=== PATIENT | female | born 1945 | race Caucasian/White ===

== ENCOUNTER → 2017-01-09 | Outpatient (REF) | payer MEDICARE ==
[~2017-01-09] MED LIST: /ESOM40CA OR; /WARF25TA OR; /WARF5TA OR; ALDA25TA2 OR; AMLO5TAB2 PO; ANAS1TAB PO; BISAC5TA PO; CALCTAB22 OR; CAPTPOW OR; CORE3.12 OR; COUM10TA OR; COZA25TA8 OR; DOCU10ELUD PO; FERR325T OR; FURO20TA OR; FURO80TA2 OR; GLIP10TA18 OR; INSUH10VL INJ; IRON CR PO; JANUMET OR; LEVEINJ SC; LISI5TAB PO; LOPE2TAB3 PO; LOPERAMIDE PO; OMEP40CA2 PO; OYST500T OR; POTA20TA2 OR; SIMV40TA2 OR; SLOWTAB OR; TORS20TA2 PO; TUMS500C OR; TUMS500C PO; VICO5TAB OR; VITA500T3 PO; VITAMIN B-12 SC; VITAMIN D PO; ZETI10TA OR; ZETI10TA21 PO; [UNRECOGNIZED DRUG - CODE] OR; [UNRECOGNIZED DRUG - OTHER] OR; anastrozole OR
[2017-01-09 15:37] LABS: ALBUMIN 3.8 GM/DL (3.2-5.2); ALBUMIN/GLOBULIN RATIO 1.27 (1.00-1.93); BILIRUBIN,TOTAL 0.3 MG/DL (0.2-1.0); CALCIUM LEVEL 8.6 MG/DL (8.8-10.2); CREATININE FOR GFR 2.33 MG/DL (0.55-1.02); GLOMERULAR FILTRATION RATE 21.9 (>39); POTASSIUM SERUM 4.9 MEQ/L (3.5-5.1); TOTAL PROTEIN 6.8 GM/DL (6.4-8.2)
== END ==
LOC: M SFHCLACO 08:14
PROVIDERS: ATTEND Physician Assistant
DX: I10 Essential (primary) hypertension (principal); E11.39 Type 2 diabetes mellitus with other diabetic ophthalmic complication; E78.2 Mixed hyperlipidemia; E55.9 Vitamin D deficiency, unspecified; D51.0 Vitamin B12 deficiency anemia due to intrinsic factor deficiency

== ENCOUNTER → 2017-02-26 | Outpatient (REF) | payer MEDICARE ==
[2017-02-26 19:20] LABS: PERCENT SATURATION 13.7 % (13.2-37.4)
== END ==
LOC: M LAB REF 16:53
PROVIDERS: ATTEND Internal Medicine Nephrology
DX: N18.9 Chronic kidney disease, unspecified (principal); D63.1 Anemia in chronic kidney disease

== ENCOUNTER → 2017-07-12 | Outpatient (REF) | payer MEDICARE ==
[2017-07-12 18:51] LABS: PERCENT SATURATION 22.9 % (13.2-45.0)
== END ==
LOC: M LAB REF 17:30
PROVIDERS: ATTEND Internal Medicine Nephrology
DX: D50.9 Iron deficiency anemia, unspecified (principal)

== ENCOUNTER → 2017-07-17 | Outpatient (REF) | payer MEDICARE ==
[2017-07-17 15:52] LABS: ALBUMIN 3.5 GM/DL (3.2-5.2); BILIRUBIN,TOTAL 0.3 MG/DL (0.2-1.0); CALCIUM LEVEL 8.6 MG/DL (8.8-10.2); CREATININE FOR GFR 2.28 MG/DL (0.55-1.02); GLOMERULAR FILTRATION RATE 22.5 (>39); POTASSIUM SERUM 5.1 MEQ/L (3.5-5.1)
== END ==
LOC: M SFHCLACO 08:04
PROVIDERS: ATTEND Physician Assistant
DX: I10 Essential (primary) hypertension (principal); E78.2 Mixed hyperlipidemia; E11.39 Type 2 diabetes mellitus with other diabetic ophthalmic complication; E55.9 Vitamin D deficiency, unspecified; E53.8 Deficiency of other specified B group vitamins

== ENCOUNTER → 2017-09-05 | Outpatient (CLI) | payer MEDICARE ==
--- NOTE | 2017-09-05 10:29 | REP ---
UNILATERAL MAMMOGRAM RIGHT BREAST: HISTORY: Left breast cancer and mastectomy. MLO, CC and axillary CC views of the right breast are performed and compare with prior study of 09/04/2016 as well as other prior exams. There is moderate fibroglandular tissue throughout the right breast with no change since prior studies. There is no new mass or architectural distortion. Scattered tiny benign appearing calcifications are present. There are metallic clips again seen in the right breast. IMPRESSION: ACR 2 benign mammogram right breast with no change since prior studies. Patient is status post left mastectomy. Suggest followup mammogram in 1 year. BI-RADS/ACR category 2 mammogram. Benign finding(s). Routine annual screening mammography (for women over age 40). This mammogram was interpreted with the aid of an FDA-approved computer-aided detection system. A. Negative x-ray reports should not delay biopsy if a dominant or clinically suspicious mass is present. B. Four to eight percent of cancers are not identified by x-ray. C. Adenosis and dense breasts may obscure an underlying neoplasm. The patient states she has not had a clinical breast exam in over a year. The patient letter being requested is M1. Signed by Dakota Lorenz MD 09/05/2017 01:00 P
== END ==
LOC: M RAD 08:48
PROVIDERS: ATTEND Surgery
DX: Z12.31 Encounter for screening mammogram for malignant neoplasm of breast (principal); Z85.3 Personal history of malignant neoplasm of breast

== ENCOUNTER 2017-12-04 13:00 | Inpatient (IN) | payer MEDICARE ==
[2017-12-04] MEDS: NS 500 ML IV ×2 (14:15→15:45)
[2017-12-04] MEDS: ONDANSETRON 4MG/2ML VIAL (J2405) IV (14:15)
[2017-12-04 14:34] LABS: VENOUS BASE EXCESS -5.4 (-2.0-2.0); VENOUS HCO3 20.9 MEQ/L (23.0-27.0); VENOUS O2 SATURATION 97.2 % (60.0-80.0); VENOUS PARTIAL PRESSURE CO2 44.3 mmHg (38.0-50.0); VENOUS PARTIAL PRESSURE O2 102.1 mmHg (30.0-50.0); VENOUS PH 7.291 UNITS (7.330-7.430); VENOUS TOTAL CO2 22.2 MEQ/L (24.0-28.0)
[2017-12-04 14:42] LABS: PROTHROMBIN TIME 24.3 SECONDS (12.4-14.5)
[2017-12-04 15:14] LABS: ANION GAP 8 MEQ/L (8-16); BLOOD UREA NITROGEN 107 MG/DL (7-18); CALCIUM LEVEL 8.6 MG/DL (8.8-10.2); CARBON DIOXIDE LEVEL 25 MEQ/L (21-32); CHLORIDE LEVEL 105 MEQ/L (98-107); CREATININE FOR GFR 2.76 MG/DL (0.55-1.02); GLUCOSE, FASTING 191 MG/DL (83-110); POTASSIUM SERUM 4.3 MEQ/L (3.5-5.1); SODIUM LEVEL 138 MEQ/L (136-145)
[2017-12-04 15:15] LABS: BASO # 0.1 10^3/uL (0.0-0.2); BASO % 0.4 % (0.0-1.0); EOS # 0.1 10^3/uL (0.0-0.50); EOS % 0.8 % (0.0-3.0); HEMATOCRIT 29.7 % (36.0-47.0); HEMOGLOBIN 9.4 g/dl (12.0-16.0); IMMATURE GRANULOCYTE # 0.1 10^3/uL (0-0); IMMATURE GRANULOCYTE % 0.4 % (0-0); LYMPH # 0.6 10^3/uL (1.5-4.5); LYMPH % 4.3 % (24.0-44.0); MEAN CORPUSCULAR HEMOGLOBIN 29.8 pg (27.0-33.0); MEAN CORPUSCULAR HGB CONC 31.6 g/dl (32.0-36.5); MEAN CORPUSCULAR VOLUME 94.3 fl (80.0-96.0); MONO % 7.2 % (0.0-5.0); NEUTROPHILS # 11.9 10^3/uL (1.8-7.7); NEUTROPHILS % 86.9 % (36.0-66.0); PLATELET COUNT, AUTOMATED 205 10^3/uL (150-450); RED BLOOD COUNT 3.15 10^6/uL (4.00-5.40); RED CELL DISTRIBUTION WIDTH 14.4 % (11.5-14.5); WHITE BLOOD COUNT 13.7 10^3/uL (4.0-10.0)
[2017-12-04 16:48] LABS: C REACTIVE PROTEIN QUANTITATIV < 0.30 MG/DL (0.00-0.30)
[2017-12-04] MEDS ORDERED: GLUCAGON FOR INJ 1 MG VIAL (J1610) SC (17:00)
[2017-12-04] MEDS ORDERED: DEXTROSE 50% 50 ML SYRINGE IV (17:00)
[2017-12-04] MEDS ORDERED: ACETAMINOPHEN TAB 650MG DOSE (2X325MG) PO (17:00)
[2017-12-04] MEDS ORDERED: ONDANSETRON 4MG/2ML VIAL (J2405) IV (17:15)
[2017-12-04] MEDS: HumaLOG INSULIN (NovoLOG) PER UNIT SC ×2 (17:30→21:00)
[2017-12-04 20:39] LABS: BEDSIDE GLUCOSE 175 MG/DL (83-110)
[2017-12-04] MEDS: NS 1,000 ML IV (21:57)
[2017-12-04] MEDS: CARVedilol 3.125 MG TAB PO (21:57)
[2017-12-04] MEDS: WARFARIN SOD 3 MG TAB PO (21:57)
[2017-12-05] MEDS: NS 1,000 ML IV ×2 (05:29→09:36)
[2017-12-05 06:22] LABS: HEMATOCRIT 22.9 % (36.0-47.0); MEAN CORPUSCULAR HEMOGLOBIN 29.5 pg (27.0-33.0); MEAN CORPUSCULAR HGB CONC 31.4 g/dl (32.0-36.5); MEAN CORPUSCULAR VOLUME 93.9 fl (80.0-96.0); PLATELET COUNT, AUTOMATED 150 10^3/uL (150-450); RED BLOOD COUNT 2.44 10^6/uL (4.00-5.40); RED CELL DISTRIBUTION WIDTH 14.3 % (11.5-14.5); WHITE BLOOD COUNT 6.8 10^3/uL (4.0-10.0)
[2017-12-05 06:30] LABS: HEMOGLOBIN 7.2 g/dl (12.0-16.0)
[2017-12-05 06:33] LABS: PROTHROMBIN TIME 32.5 SECONDS (12.4-14.5)
[2017-12-05 06:40] LABS: ALBUMIN 2.8 GM/DL (3.2-5.2); ANION GAP 8 MEQ/L (8-16); BLOOD UREA NITROGEN 95 MG/DL (7-18); CALCIUM LEVEL 7.1 MG/DL (8.8-10.2); CARBON DIOXIDE LEVEL 23 MEQ/L (21-32); CHLORIDE LEVEL 111 MEQ/L (98-107); CREATININE FOR GFR 2.41 MG/DL (0.55-1.02); GLUCOSE, FASTING 76 MG/DL (83-110); MAGNESIUM LEVEL 1.6 MG/DL (1.8-2.4); PHOSPHORUS LEVEL 5.2 MG/DL (2.5-4.9); SODIUM LEVEL 142 MEQ/L (136-145)
[2017-12-05] MEDS: HumaLOG INSULIN (NovoLOG) PER UNIT SC ×4 (07:24→21:00)
[2017-12-05] MEDS: MAG SULF 1GM/100ML (MAG RUN) 1 GM in APPROPRIATE DILUENT 1 EA IV (07:58)
[2017-12-05] MEDS: FERROUS SULFATE 325MG TAB PO (09:34)
[2017-12-05] MEDS: CYANOCOBALAMIN 500 MCG TAB PO (09:34)
[2017-12-05] MEDS: SIMVASTATIN 40 MG TAB PO (09:34)
[2017-12-05] MEDS: CALCITRIOL 0.25 MCG CAP (S0169) PO (09:34)
[2017-12-05] MEDS: amLODIPine 5 MG TAB PO (09:35)
[2017-12-05] MEDS: LEVEMIR (INSULIN DETEMIR) 1 UNITS/0.01ML SC (09:36)
[2017-12-05] MEDS: CARVedilol 3.125 MG TAB PO ×2 (09:36→21:00)
[2017-12-05 10:54] LABS: IMMEDIATE SPIN CROSSMATCH 1 2
[2017-12-05] MEDS ORDERED: VANCOMYCIN HCL 1,500 MG, VIAL MATE ADAPTER 1 EACH in D5W 250 ML IV (11:30)
[2017-12-05] MEDS: VANCOMYCIN HCL 1,000 MG, VIAL MATE ADAPTER 1 EACH in D5W 250 ML IV (11:48)
[2017-12-05] MEDS: VANCOMYCIN HCL 500 MG in D5W MINI-BAG PLUS 100 ML IV (13:00)
[2017-12-05] MEDS ORDERED: VANCOMYCIN INTERMITTENT/PULSE DOSING BY CLINICAL PHARMACIST PER DOSING PROTOCOL XX (15:30)
[2017-12-05] MEDS: GLUCOSE 4 GM CHEW TABLET PO (16:27)
[2017-12-05] MEDS: WARFARIN SOD 3 MG TAB PO (16:50)
[2017-12-05] MEDS: FUROSEMIDE 40 MG/4 ML VIAL (J1940) IV (16:50)
[2017-12-05 17:05] LABS: BEDSIDE GLUCOSE 40 MG/DL (83-110)
[2017-12-05 17:06] LABS: BEDSIDE GLUCOSE 80 MG/DL (83-110)
[2017-12-05 18:04] LABS: HEMATOCRIT 32.3 % (36.0-47.0); MEAN CORPUSCULAR HEMOGLOBIN 29.6 pg (27.0-33.0); MEAN CORPUSCULAR HGB CONC 31.9 g/dl (32.0-36.5); MEAN CORPUSCULAR VOLUME 92.8 fl (80.0-96.0); PLATELET COUNT, AUTOMATED 148 10^3/uL (150-450); RED BLOOD COUNT 3.48 10^6/uL (4.00-5.40); RED CELL DISTRIBUTION WIDTH 14.8 % (11.5-14.5); WHITE BLOOD COUNT 8.7 10^3/uL (4.0-10.0)
[2017-12-05 18:08] LABS: HEMOGLOBIN 10.3 g/dl (12.0-16.0)
[2017-12-05 21:10] LABS: BEDSIDE GLUCOSE 159 MG/DL (83-110)
[2017-12-05 21:46] LABS: APPEARANCE, URINE CLEAR (CLEAR); BACTERIA, URINE AUTO NEGATIVE (NEGATIVE); BILIRUBIN, URINE AUTO NEGATIVE (NEGATIVE); BLOOD, URINE BLOOD NEGATIVE (NEGATIVE); COLOR, URINE STRAW (YELLOW); GLUCOSE, URINE (UA) AUTO NEGATIVE (NEGATIVE); KETONE, URINE AUTO NEGATIVE (NEGATIVE); LEUKOCYTE ESTERASE, URINE AUTO 2+ (NEGATIVE); NITRITE, URINE AUTO NEGATIVE (NEGATIVE); PROTEIN, URINE AUTO NEGATIVE (NEGATIVE); RBC, URINE AUTO 1 /HPF (0-3); SPECIFIC GRAVITY URINE AUTO 1.004 (1.002-1.035); SQUAMOUS EPITHELIAL CELL UR AU 0 /HPF (0-6); UROBILINOGEN, URINE AUTO 0.2 mg/dL (0.0-2.0); WBC, URINE AUTO 2 /HPF (0-3)
[2017-12-05 21:48] LABS: OSMOLALITY URINE 209 MOSM/KG (500-800)
[2017-12-05 21:56] LABS: CHLORIDE,RANDOM URINE 13 MEQ/L; CREATININE,RANDOM URINE 30.3 MG/DL; POTASSIUM RANDOM URINE 7.3 MEQ/L; SODIUM,RANDOM URINE 24 MEQ/L; TOTAL PROTEIN,RANDOM URINE 5.2 MG/DL (0.0-12.0)
[2017-12-06 06:43] LABS: HEMOGLOBIN 9.3 g/dl (12.0-16.0); MEAN CORPUSCULAR HEMOGLOBIN 29.5 pg (27.0-33.0); MEAN CORPUSCULAR HGB CONC 32.1 g/dl (32.0-36.5); MEAN CORPUSCULAR VOLUME 92.1 fl (80.0-96.0); PLATELET COUNT, AUTOMATED 140 10^3/uL (150-450); RED BLOOD COUNT 3.15 10^6/uL (4.00-5.40); WHITE BLOOD COUNT 7.2 10^3/uL (4.0-10.0)
[2017-12-06 07:02] LABS: INR 3.16; PROTHROMBIN TIME 33.9 SECONDS (12.4-14.5)
[2017-12-06 07:12] LABS: ALBUMIN 2.8 GM/DL (3.2-5.2); ANION GAP 6 MEQ/L (8-16); BLOOD UREA NITROGEN 82 MG/DL (7-18); CALCIUM LEVEL 7.4 MG/DL (8.8-10.2); CARBON DIOXIDE LEVEL 24 MEQ/L (21-32); CHLORIDE LEVEL 108 MEQ/L (98-107); CREATININE FOR GFR 2.28 MG/DL (0.55-1.02); GLOMERULAR FILTRATION RATE 22.4 (>39); GLUCOSE, FASTING 94 MG/DL (83-110); MAGNESIUM LEVEL 1.9 MG/DL (1.8-2.4); PHOSPHORUS LEVEL 4.1 MG/DL (2.5-4.9); POTASSIUM SERUM 4.4 MEQ/L (3.5-5.1); SODIUM LEVEL 138 MEQ/L (136-145); VANCOMYCIN RANDOM 20.1 UG/ML
[2017-12-06] MEDS: HumaLOG INSULIN (NovoLOG) PER UNIT SC ×4 (08:26→21:00)
[2017-12-06] MEDS: FERROUS SULFATE 325MG TAB PO (08:37)
[2017-12-06] MEDS: CARVedilol 3.125 MG TAB PO ×3 (08:37→21:00)
[2017-12-06] MEDS: amLODIPine 5 MG TAB PO (08:37)
[2017-12-06] MEDS: SIMVASTATIN 40 MG TAB PO (08:37)
[2017-12-06] MEDS: CYANOCOBALAMIN 500 MCG TAB PO (08:37)
[2017-12-06] MEDS: LEVEMIR (INSULIN DETEMIR) 1 UNITS/0.01ML SC (08:38)
[2017-12-06] MEDS: VANCOMYCIN HCL 500 MG in D5W MINI-BAG PLUS 100 ML IV (08:38)
[2017-12-06 11:56] LABS: BEDSIDE GLUCOSE 175 MG/DL (83-110)
[2017-12-06] MEDS: MIRALAX *UNIT DOSE* 17GM PACKET PO (12:14)
[2017-12-06 13:37] LABS: BEDSIDE GLUCOSE 145 MG/DL (83-110)
[2017-12-06 17:24] LABS: BEDSIDE GLUCOSE 99 MG/DL (83-110)
[2017-12-06] MEDS: WARFARIN SOD 3 MG TAB PO (17:41)
[2017-12-06 18:12] LABS: BASO % 0.5 % (0.0-1.0); EOS # 0.3 10^3/uL (0.0-0.50); EOS % 3.5 % (0.0-3.0); HEMATOCRIT 31.3 % (36.0-47.0); HEMOGLOBIN 10.1 g/dl (12.0-16.0); IMMATURE GRANULOCYTE % 0.3 % (0-0); LYMPH # 1.1 10^3/uL (1.5-4.5); LYMPH % 14.5 % (24.0-44.0); MEAN CORPUSCULAR HEMOGLOBIN 29.3 pg (27.0-33.0); MEAN CORPUSCULAR HGB CONC 32.3 g/dl (32.0-36.5); MEAN CORPUSCULAR VOLUME 90.7 fl (80.0-96.0); MONO # 0.9 10^3/uL (0.0-0.8); MONO % 11.6 % (0.0-5.0); NEUTROPHILS # 5.1 10^3/uL (1.8-7.7); NEUTROPHILS % 69.6 % (36.0-66.0); PLATELET COUNT, AUTOMATED 155 10^3/uL (150-450); RED BLOOD COUNT 3.45 10^6/uL (4.00-5.40); RED CELL DISTRIBUTION WIDTH 14.6 % (11.5-14.5); WHITE BLOOD COUNT 7.4 10^3/uL (4.0-10.0)
[2017-12-06 20:14] LABS: BASO # 0.1 10^3/uL (0.0-0.2); BASO % 0.6 % (0.0-1.0); EOS # 0.2 10^3/uL (0.0-0.50); EOS % 2.3 % (0.0-3.0); HEMATOCRIT 32.1 % (36.0-47.0); HEMOGLOBIN 10.4 g/dl (12.0-16.0); IMMATURE GRANULOCYTE % 0.3 % (0-0); LYMPH % 12.8 % (24.0-44.0); MEAN CORPUSCULAR HGB CONC 32.4 g/dl (32.0-36.5); MEAN CORPUSCULAR VOLUME 92.5 fl (80.0-96.0); MONO # 0.8 10^3/uL (0.0-0.8); MONO % 10.4 % (0.0-5.0); NEUTROPHILS # 5.8 10^3/uL (1.8-7.7); NEUTROPHILS % 73.6 % (36.0-66.0); PLATELET COUNT, AUTOMATED 140 10^3/uL (150-450); RED BLOOD COUNT 3.47 10^6/uL (4.00-5.40); RED CELL DISTRIBUTION WIDTH 14.8 % (11.5-14.5); WHITE BLOOD COUNT 7.9 10^3/uL (4.0-10.0)
[2017-12-06 21:10] LABS: BEDSIDE GLUCOSE 131 MG/DL (83-110)
[2017-12-07 00:42] LABS: BASO # 0.1 10^3/uL (0.0-0.2); BASO % 0.8 % (0.0-1.0); EOS # 0.2 10^3/uL (0.0-0.50); EOS % 3.2 % (0.0-3.0); HEMOGLOBIN 9.5 g/dl (12.0-16.0); IMMATURE GRANULOCYTE % 0.3 % (0-0); LYMPH # 1.2 10^3/uL (1.5-4.5); LYMPH % 16.8 % (24.0-44.0); MEAN CORPUSCULAR HEMOGLOBIN 29.7 pg (27.0-33.0); MEAN CORPUSCULAR HGB CONC 32.8 g/dl (32.0-36.5); MEAN CORPUSCULAR VOLUME 90.6 fl (80.0-96.0); MONO # 0.9 10^3/uL (0.0-0.8); MONO % 12.3 % (0.0-5.0); NEUTROPHILS # 4.7 10^3/uL (1.8-7.7); NEUTROPHILS % 66.6 % (36.0-66.0); PLATELET COUNT, AUTOMATED 129 10^3/uL (150-450); RED CELL DISTRIBUTION WIDTH 14.6 % (11.5-14.5); WHITE BLOOD COUNT 7.1 10^3/uL (4.0-10.0)
[2017-12-07 06:19] LABS: HEMATOCRIT 30.5 % (36.0-47.0); HEMOGLOBIN 9.9 g/dl (12.0-16.0); MEAN CORPUSCULAR HEMOGLOBIN 29.8 pg (27.0-33.0); MEAN CORPUSCULAR HGB CONC 32.5 g/dl (32.0-36.5); MEAN CORPUSCULAR VOLUME 91.9 fl (80.0-96.0); PLATELET COUNT, AUTOMATED 154 10^3/uL (150-450); RED BLOOD COUNT 3.32 10^6/uL (4.00-5.40); RED CELL DISTRIBUTION WIDTH 14.6 % (11.5-14.5); WHITE BLOOD COUNT 7.2 10^3/uL (4.0-10.0)
[2017-12-07 06:30] LABS: INR 1.95; PROTHROMBIN TIME 22.9 SECONDS (12.4-14.5)
[2017-12-07 06:35] LABS: ALBUMIN 2.9 GM/DL (3.2-5.2); ANION GAP 7 MEQ/L (8-16); BLOOD UREA NITROGEN 83 MG/DL (7-18); CALCIUM LEVEL 7.8 MG/DL (8.8-10.2); CARBON DIOXIDE LEVEL 23 MEQ/L (21-32); CHLORIDE LEVEL 109 MEQ/L (98-107); CREATININE FOR GFR 2.04 MG/DL (0.55-1.02); GLOMERULAR FILTRATION RATE 25.5 (>39); GLUCOSE, FASTING 117 MG/DL (83-110); PHOSPHORUS LEVEL 3.4 MG/DL (2.5-4.9); POTASSIUM SERUM 4.6 MEQ/L (3.5-5.1); SODIUM LEVEL 139 MEQ/L (136-145); VANCOMYCIN RANDOM 19.9 UG/ML
[2017-12-07] MEDS: HumaLOG INSULIN (NovoLOG) PER UNIT SC ×2 (07:30→12:00)
[2017-12-07] MEDS: SIMVASTATIN 40 MG TAB PO (08:30)
[2017-12-07] MEDS: CYANOCOBALAMIN 500 MCG TAB PO (08:30)
[2017-12-07] MEDS: CALCITRIOL 0.25 MCG CAP (S0169) PO (08:30)
[2017-12-07] MEDS: FERROUS SULFATE 325MG TAB PO (08:30)
[2017-12-07] MEDS: VANCOMYCIN HCL 500 MG in D5W MINI-BAG PLUS 100 ML IV (08:30)
[2017-12-07] MEDS: CARVedilol 3.125 MG TAB PO (08:31)
[2017-12-07] MEDS: amLODIPine 5 MG TAB PO (08:31)
[2017-12-07] MEDS: MIRALAX *UNIT DOSE* 17GM PACKET PO (08:31)
[2017-12-07] MEDS: LEVEMIR (INSULIN DETEMIR) 1 UNITS/0.01ML SC (08:32)
[2017-12-07] MEDS: FUROSEMIDE 100 MG/10 ML VIAL (J1940) IV (10:53)
[2017-12-07] MEDS: WARFARIN SOD 5 MG TAB PO (10:53)
[2017-12-07 12:06] LABS: BEDSIDE GLUCOSE 175 MG/DL (83-110)
[2017-12-09] MEDS ORDERED: VITAMIN D 1,000 INTERNATIONAL UNITS TABLET PO (09:00)
== END 2017-12-07 14:08 | disposition home or self-care (01) | DRG 918 ==
LOC: M ED 13:00 → M ED INP 17:05 → M MSPAV 20:23
PROC: 30233N1 Transfusion of Nonautologous Red Blood Cells into Peripheral Vein, Percutaneous Approach (ICD-10-PCS; principal; 2017-12-05)
DX: T62.91XA Toxic effect of unspecified noxious substance eaten as food, accidental (unintentional), initial encounter (principal); R78.81 Bacteremia; E11.319 Type 2 diabetes mellitus with unspecified diabetic retinopathy without macular edema; K59.00 Constipation, unspecified; I25.10 Atherosclerotic heart disease of native coronary artery without angina pectoris; E86.0 Dehydration; E78.5 Hyperlipidemia, unspecified; E55.9 Vitamin D deficiency, unspecified; E53.8 Deficiency of other specified B group vitamins; I12.9 Hypertensive chronic kidney disease with stage 1 through stage 4 chronic kidney disease, or unspecified chronic kidney disease; K21.9 Gastro-esophageal reflux disease without esophagitis; Z85.3 Personal history of malignant neoplasm of breast; N18.3 Chronic kidney disease, stage 3 (moderate); D51.0 Vitamin B12 deficiency anemia due to intrinsic factor deficiency; Z90.12 Acquired absence of left breast and nipple; Z79.01 Long term (current) use of anticoagulants; Z79.899 Other long term (current) drug therapy; Z79.4 Long term (current) use of insulin; Z95.2 Presence of prosthetic heart valve; I09.9 Rheumatic heart disease, unspecified

== ENCOUNTER → 2018-05-07 | Outpatient (CLI) | payer MEDICARE | LOC: M RAD 13:54 | DX: N18.6 End stage renal disease (principal) | CPT/HCPCS: G0365 ==

== ENCOUNTER 2018-05-21 06:33 | Day surgery (SDC) | payer MEDICARE ==
[2018-05-21] MEDS ORDERED: LR 1,000 ML IV (07:00)
[2018-05-21] MEDS ORDERED: LIDOCAINE 1% MDV 20ML VIAL SQ (07:00)
[2018-05-21 07:38] LABS: INR 1.87; PROTHROMBIN TIME 21.9 SECONDS (12.1-14.4)
[2018-05-21 07:38] LABS: POTASSIUM SERUM 3.8 MEQ/L (3.5-5.1)
[2018-05-21] MEDS ORDERED: NS 1,000 ML IV (08:00)
[2018-05-21 08:07] LABS: BEDSIDE GLUCOSE 190 MG/DL (83-110)
[2018-05-21] MEDS ORDERED: PROPOFOL 200 MG/20 ML VIAL As Ordered ×2 (08:13)
[2018-05-21] MEDS ORDERED: LIDOCAINE 2% INJ 100 MG/5 ML SDV (FOR ANES.) As Ordered (08:13)
[2018-05-21] MEDS ORDERED: MIDAZOLAM INJ 2 MG/2 ML VIAL (J2250) As Ordered (08:14)
[2018-05-21] MEDS ORDERED: fentaNYL 100 MCG/2 ML INJECTION (J3010) As Ordered (08:14)
[2018-05-21] MEDS: HEPARIN SOD (PORCINE) 5000 UNITS/ML VIAL As Ordered (09:12)
[2018-05-21] MEDS ORDERED: ePHEDrine SULFATE 25 MG/5 ML(5MG/ML) SYRINGE As Ordered (09:26)
[2018-05-21] MEDS ORDERED: ONDANSETRON 4MG/2ML VIAL (J2405) As Ordered (09:28)
[2018-05-21] MEDS: LIDOCAINE 1% SDV INJ 30 ML VIAL As Ordered (09:45)
[2018-05-21] MEDS: BUPIVACAINE HCL 0.5% 30 ML VIAL As Ordered (09:46)
== END 2018-05-21 11:20 | disposition home or self-care (01) ==
LOC: M SDC 06:33
DX: N18.9 Chronic kidney disease, unspecified (principal); I13.0 Hypertensive heart and chronic kidney disease with heart failure and stage 1 through stage 4 chronic kidney disease, or unspecified chronic kidney disease; I25.10 Atherosclerotic heart disease of native coronary artery without angina pectoris; R60.0 Localized edema; E11.22 Type 2 diabetes mellitus with diabetic chronic kidney disease; E78.00 Pure hypercholesterolemia, unspecified; E11.40 Type 2 diabetes mellitus with diabetic neuropathy, unspecified; D63.1 Anemia in chronic kidney disease; I73.9 Peripheral vascular disease, unspecified; I50.9 Heart failure, unspecified; N25.81 Secondary hyperparathyroidism of renal origin; M1A.30X0 Chronic gout due to renal impairment, unspecified site, without tophus (tophi); M19.90 Unspecified osteoarthritis, unspecified site; Z85.3 Personal history of malignant neoplasm of breast; Z92.21 Personal history of antineoplastic chemotherapy; Z87.891 Personal history of nicotine dependence; Z95.2 Presence of prosthetic heart valve; Z79.899 Other long term (current) drug therapy; Z79.01 Long term (current) use of anticoagulants; Z79.4 Long term (current) use of insulin
CPT/HCPCS: 36821

== ENCOUNTER → 2018-07-16 | Outpatient (REF) | payer MEDICARE ==
[2018-07-16 15:38] LABS: ALBUMIN 3.7 GM/DL (3.2-5.2); ALBUMIN/GLOBULIN RATIO 0.95 (1.00-1.93); ALKALINE PHOSPHATASE 94 U/L (45-117); ALT/SGPT 20 U/L (12-78); ANION GAP 10 MEQ/L (8-16); AST/SGOT 31 U/L (7-37); BILIRUBIN,TOTAL 0.4 MG/DL (0.2-1.0); BLOOD UREA NITROGEN 62 MG/DL (7-18); CALCIUM LEVEL 8.7 MG/DL (8.8-10.2); CARBON DIOXIDE LEVEL 29 MEQ/L (21-32); CHLORIDE LEVEL 100 MEQ/L (98-107); CHOLESTEROL LEVEL 158 MG/DL (<200); CHOLESTEROL RISK RATIO 2.164 (<5); CREATININE FOR GFR 2.44 MG/DL (0.55-1.30); GLOMERULAR FILTRATION RATE 20.7 (>39); GLUCOSE, FASTING 157 MG/DL (70-100); HDL CHOLESTEROL 73 MG/DL (>40); LDL CHOLESTEROL 66.2 MG/DL (<100); NON-HDL-C 85 MG/DL; POTASSIUM SERUM 4.3 MEQ/L (3.5-5.1); SODIUM LEVEL 139 MEQ/L (136-145); TOTAL PROTEIN 7.6 GM/DL (6.4-8.2); TRIGLYCERIDES LEVEL 94 MG/DL (<150)
[2018-07-16 15:46] LABS: ESTIMATED AVERAGE GLUCOSE 137 MG/DL (60-110); HEMOGLOBIN A1c 6.4 %
[2018-07-17 08:34] LABS: TOTAL 25(OH) VITAMIN D 33.7 NG/ML (30.0-100.0); VITAMIN B12 LEVEL 890 PG/ML (247-911)
== END ==
LOC: M SFHCLACO 08:22
DX: E11.39 Type 2 diabetes mellitus with other diabetic ophthalmic complication (principal); E11.22 Type 2 diabetes mellitus with diabetic chronic kidney disease; I12.9 Hypertensive chronic kidney disease with stage 1 through stage 4 chronic kidney disease, or unspecified chronic kidney disease; N18.3 Chronic kidney disease, stage 3 (moderate); E78.2 Mixed hyperlipidemia; E55.9 Vitamin D deficiency, unspecified; E53.8 Deficiency of other specified B group vitamins
CPT/HCPCS: 82607

== ENCOUNTER → 2019-01-21 | Outpatient (CLI) | payer MEDICARE ==
[~2019-01-21] MED LIST changes: +ACET1TAB55 PO; +AMLO5TAB6 PO; +AMOX500T PO; +CALC1CAP; +CALC1CAP31 PO; +CARV3.12 PO; +CARV6.25; +COLA100C5 PO; +CYAN1000VL IM; +D 50CAP PO; +DICY20TA11 PO; +FERR1TAB8 PO; +FURO20TA2 PO; +HUMA75IN2 SC; +HYDR10TAB; +INSUDET SC; +LISI-542 PO; +NOVO70VL SC; +PROC20004 SC; +SODI650T PO; +SPIR-10; +ULOR80TA; +VITA500T53 PO; +WARF-23 PO; +ZOCO40TA PO
--- NOTE | 2019-01-21 14:55 | REP ---
DIAGNOSTIC MAMMOGRAM RIGHT BREAST WITH RIGHT BREAST ULTRASOUND: HISTORY: Left mastectomy. Palpable lump 6-o'clock position right breast. The area is marked on the skin with a triangular marker. MLO and CC views of the right breast are performed including ML projection, with 3D tomosynthesis. Spot compression views are also performed. Comparison made with multiple prior exams, most recently 09/05/2017. Moderately dense breast parenchyma is again seen throughout the right breast. Pattern, for the most part, is unchanged. However, at the site of the palpable lump, there is an area of architectural distortion with what appears to be a spiculated mass. This is best seen on the tomographic images. I see no other evidence of mass or clustered microcalcifications. Real-time sonographic evaluation of right breast performed in the region of 6-o'clock position at the site of the reported palpable abnormality. There is a shadowing mass at that location measuring 1.4 cm in diameter with irregular margins. IMPRESSION: BIRADS 4: BI-RADS/ACR category 4 mammogram. Suspicious Abnormality - biopsy should be considered. ACR 4 suspicious. At the site of the palpable lump, there now appears to be architectural distortion and a spiculated mass, which by mammography measures about 2 cm in diameter. By ultrasound, this area shows an irregular shadowing mass measuring 1.4 cm in maximum diameter. I would recommend an ultrasound-guided biopsy and postprocedure mammogram. This mammogram was interpreted with the aid of an FDA-approved computer-aided detection system. The patient states that she or he has not had a clinical breast exam in over a year. The patient letter being requested is M4. Electronically Signed by Dakota Lorenz MD 01/22/2019 09:59 A
== END ==
LOC: M RAD 11:20
PROVIDERS: ATTEND Surgery
DX: N63.13 Unspecified lump in the right breast, lower outer quadrant (principal); Z85.3 Personal history of malignant neoplasm of breast; Z90.12 Acquired absence of left breast and nipple
CPT/HCPCS: 76642; 77065; G0279

== ENCOUNTER → 2019-02-25 | Outpatient (CLI) | payer MEDICARE ==
[~2019-02-25] MED LIST changes: -/ESOM40CA OR; -/WARF25TA OR; -/WARF5TA OR; +B121000T PO; +CALC1CAP PO; +COUM1TAB17 OR; +COUM1TAB18 OR; -DOCU10ELUD PO; +DOCU5LIQ PO; +IRON27TA2 PO; +LETR2.5T2 PO; +NEXI1CAP3 OR; +VITA500T17 PO; -VITA500T53 PO
--- NOTE | 2019-02-25 19:23 | REP ---
Noncontrast chest CT: History: Breast cancer staging. No comparison chest CT. CT findings: Preliminary digital resource program teacher radiograph and chest CT images demonstrate median sternotomy wires and aortic and mitral valve replacements. There is no evidence of pleural or pericardial effusion. No pulmonary nodule is seen. No infiltrate is noted. No mass lesion is seen. The patient is status post left mastectomy as well. There are calcifications in the right breast. There is no evidence of axillary adenopathy on either side. No internal mammary adenopathy is appreciated. No supraclavicular adenopathy is seen. Bone window settings show no bony destructive lesion. Impression: Status post left mastectomy. Aortic and mitral valve replacement. No active disease. Electronically Signed by Neville Hoffmann MD 02/25/2019 08:40 P
--- NOTE | 2019-02-25 19:37 | REP ---
CT abdomen and pelvis without IV or oral contrast: History: Staging exam for breast carcinoma. Comparison CT study is from August 02, 2005. CT findings: Preliminary digital aws consultant radiograph demonstrates a normal bowel gas pattern. The left breast is surgically absent. The liver is normal in size homogeneous in texture. There are calcified gallstones in the gallbladder lumen. The spleen is normal in size and homogeneous in texture. No adrenal lesion is seen. The pancreas is fatty involuted and appears intact. There is some cortical atrophy of the kidneys bilaterally. Small cysts are present bilaterally. Heavy vascular calcification is noted. Stomach is somewhat distended with ingested material. Small and large bowel loops are unremarkable in the abdomen and pelvis. No uterine or ovarian abnormality is seen. Urinary bladder is unremarkable. Normal appendix is seen. There is a broad area of increased density in the subcutaneous fat in the anterior abdominal wall on the right laterally at mid abdominal level. No hernia is seen. This is of uncertain significance. It was not present in 2004. Is there a history of recent right flank bruising? This area should be correlated on the clinical exam. It measures approximately 8 cm craniocaudal by 8 cm anteroposterior by 1 cm in thickness. It occupies the subcutaneous fat layer. Impression: Cholelithiasis. Mildly distended stomach. No other intra-abdominal abnormality. Some renal cortical atrophy. There is a broad area of induration consistent with scarring or contusion, in the anterolateral subcutaneous fat of the right abdominal wall of uncertain significance. This should be correlated with history and physical findings. Electronically Signed by Neville Hoffmann MD 02/25/2019 08:40 P
== END ==
LOC: M RAD 14:20
PROVIDERS: ATTEND Internal Medicine Hematology & Oncology
DX: C50.919 Malignant neoplasm of unspecified site of unspecified female breast (principal)

== ENCOUNTER → 2019-03-10 | Outpatient (CLI) | payer MEDICARE ==
[~2019-03-10] MED LIST changes: -CARV6.25; +CARV6.25 PO; -HYDR10TAB; +HYDR10TAB PO; -SPIR-10; +SPIR-10 PO; -ULOR80TA; +ULOR80TA PO; +WARF-18 PO
--- NOTE | 2019-03-13 10:59 | DEXA ---
AP SPINE L1 - L4 1.167 -0.2 1.5 LT FEMUR TOTAL 0.890 -0.9 0.7 LT NECK 0.727 -2.2 -0.4 RT FEMUR TOTAL 0.868 -1.1 0.5 RT NECK 0.759 -2.0 -0.2 TOTAL BODY TOTAL OTHER COMMENTS: Normal bone densitometry of the spine. There is low bone density of the hips. The density of the spine has decreased 11.1% since the initial exam on 09/07/2000. The spine density has decreased 1.4% since the most recent exam on 04/29/2010. The density of the left hip has decreased 22.9% since the initial exam on 09/07/2000. The density of the left hip has decreased 3.1% since the most recent exam on 04/29/2010. The density of the right hip has decreased 25.4% since the initial exam on 09/07/2000. The density of the right hip has decreased 4.5% since the most recent exam on 04/29/2010. FOLLOW-UP: Recommendation for the next bone density exam: 2 years. SWEETIE
== END ==
LOC: M WHC 11:50
PROVIDERS: ATTEND Internal Medicine Hematology & Oncology
DX: C50.911 Malignant neoplasm of unspecified site of right female breast (principal)

== ENCOUNTER 2019-03-19 13:10 | Inpatient (IN) | payer MEDICARE ==
[~2019-03-19] VITALS: Ht 154.9 cm; Wt 71.3 kg
[~2019-03-19 13:10] MED LIST changes: +ACETAMINOPHEN TAB 650MG DOSE (2X325MG) PO PRN
[2019-03-19 13:44] VITALS: BP 140/70
[2019-03-19 14:19] LABS: INR 2.02; PROTHROMBIN TIME 23.2 SECONDS (12.1-14.4)
[2019-03-19 14:20] LABS: PARTIAL THROMBOPLASTIN TIME 43.9 SECONDS (25.4-37.6)
[2019-03-19 14:34] LABS: ALBUMIN 3.9 GM/DL (3.2-5.2); BILIRUBIN,TOTAL 0.5 MG/DL (0.2-1.0); CALCIUM LEVEL 9.2 MG/DL (8.8-10.2); CREATININE FOR GFR 2.07 MG/DL (0.55-1.30); POTASSIUM SERUM 4.4 MEQ/L (3.5-5.1); TOTAL PROTEIN 7.6 GM/DL (6.4-8.2)
[2019-03-19] MEDS ORDERED: FERR325T3 PO (14:37)
[2019-03-19] MEDS ORDERED: LETR2.5T2 PO (14:37)
[2019-03-19 14:42] LABS: BASO # 0.1 10^3/uL (0.0-0.2); BASO % 1.1 % (0.0-1.0); EOS # 0.3 10^3/uL (0.0-0.50); EOS % 3.5 % (0.0-3.0); HEMATOCRIT 35.8 % (36.0-47.0); HEMOGLOBIN 11.1 g/dl (12.0-15.5); LYMPH # 1.5 10^3/uL (1.5-4.5); LYMPH % 18.3 % (24.0-44.0); MEAN CORPUSCULAR HEMOGLOBIN 29.4 pg (27.0-33.0); MONO # 0.9 10^3/uL (0.0-0.8); NEUTROPHILS # 5.2 10^3/uL (1.8-7.7); NEUTROPHILS % 65.8 % (36.0-66.0); PLATELET COUNT, AUTOMATED 208 10^3/uL (150-450); RED BLOOD COUNT 3.77 10^6/uL (4.00-5.40); WHITE BLOOD COUNT 7.9 10^3/uL (4.0-10.0)
[2019-03-19] MEDS ORDERED: CYAN1000VL IM (14:42)
[2019-03-19] MEDS ORDERED: DOCU100C17 PO (14:45)
[2019-03-19] MEDS: HumaLOG INSULIN (NovoLOG) PER UNIT SC SCH ×2 (17:42→21:00)
[2019-03-19] MEDS: **hydrALAZINE** 10 MG TAB PO SCH ×2 (17:45→21:10)
[2019-03-19 18:00] VITALS: BP 132/66
[2019-03-19] MEDS ORDERED: HEPARIN DRIP 25,000 UNITS in APPROPRIATE DILUENT 1 EA IV SCH (20:56)
[2019-03-19] MEDS ORDERED: HEPARIN SOD (PORCINE) 5000 UNITS/ML VIAL IV ONE (21:00)
[2019-03-19] MEDS ORDERED: HEPARIN SOD (PORCINE) 5000 UNITS/ML VIAL IV PRN (21:00)
[2019-03-19] MEDS: SIMVASTATIN 40 MG TAB PO SCH (21:07)
[2019-03-19] MEDS: TORSEMIDE 20 MG TAB PO SCH (21:10)
[2019-03-19] MEDS: CARVedilol 6.25 MG TAB PO SCH (21:11)
[2019-03-19 22:00] VITALS: BP 139/63
--- NOTE | 2019-03-19 22:55 | HPE ---
DATE OF ADMISSION: 03/19/2019 HISTORY: Right breast carcinoma with aortic and mitral mechanical artificial heart valves. HISTORY OF PRESENT ILLNESS The patient is a 73-year-old woman who was seen in January for evaluation of a right breast mass. The patient had previously been treated for breast cancer on the left side. In 2009 she had undergone a sentinel lymph node biopsy and a left total mastectomy for infiltrating ductal carcinoma, grade 2 of 3. Biopsies had been performed on the right side in 2011 and these were benign. She received an aromatase inhibitor for approximately 5 years. She reports that she had noticed a lump developing in the lower mid aspect of the right breast starting 1or 2 months before I saw her. She reported no pain but did feel a hard lump. A mammogram was obtained on January 21, 2019 and ultrasound was also obtained. These revealed a definite solid-appearing mass approximately 1.4 cm in diameter. A core needle biopsy was performed on February 06 in the office and this revealed infiltrating ductal carcinoma, grade 1-2/3. Estrogen and progesterone receptors were positive and the HER2/joy was negative. The patient and I discussed options for treatment and the plan is for a right partial mastectomy (lumpectomy) and a right sentinel lymph node biopsy. The patient is status post aortic and mitral valve replacement with mechanical valves in 2004. She was seen preoperatively by her cloth layer, Dr. Lerma who recommended bridge therapy for her Coumadin prior to surgery. The patient is now admitted to the hospital to begin a heparin drip for bridge therapy of her anticoagulation in anticipation of surgery on March 20, 2019. ALLERGIES: The patient denies any known drug allergies. CURRENT MEDICATIONS: Include Coumadin 2.5 mg by mouth daily. She is on torsemide 40 mg every morning and 20 mg every evening, and spironolactone 25 mg by mouth daily. She takes Zocor 40 mg by mouth daily at bedtime. She has been taking letrozole 2.5 mg daily, but was told to hold this for a week before and after her impending surgery. She uses Levemir insulin 30 units subcu daily in the morning and some NovoLog 70/30 mix on a sliding scale three times daily with meals. Taking hydralazine 10 mg by mouth three times daily, ferrous sulfate 325 mg by mouth daily, febuxostat 80 mg by mouth daily. She receives Procrit 20,000 units subcu every 2 weeks. She is using Colace 100 mg twice daily as needed and dicyclomine 20 mg by mouth before food and at bedtime. She is taking some cyanocobalamin 1000 mcg IM every 3 months. Taking 500 mcg by mouth daily as well. She is using vitamin D3 5000 capsules weekly, carvedilol 6.25 mg by mouth twice a daily, calcium acetate 667 mg by mouth three times daily, calcitriol 0.25 mcg by mouth three times weekly, on Sunday, Sunday and Sunday and Tylenol 325 mg by mouth every 4 hours as needed for pain. MEDICAL PROBLEMS Include a mechanical aortic and mitral valve since 2004. She is therefore on continuing anticoagulation with Coumadin. She has insulin dependent diabetes mellitus. She has chronic kidney disease which is stage III. She has a history of hypertension. She has had left-sided breast cancer and now has a new cancer on the right. She has diastolic congestive heart failure. Surgical history is significant for: Aortic and mitral valve replacements in 2004. She had a tubal ligation in 1967. She underwent a left mastectomy with sentinel lymph node biopsy back in 2009. She underwent open repair of a right leg fracture in 2009 as well. She has had bilateral cataract extractions with intraocular lenses. She has had surgery for a left upper arm arteriovenous fistula in the event of hemodialysis need. FAMILY HISTORY There is a family history of coronary artery disease and diabetes in her father. SOCIAL HISTORY Patient is . She is a never smoker and denies any excessive alcohol intake. REVIEW OF SYSTEMS She denies any recent chest pain or palpitations. She has had no cough or sputum production. Denies any abdominal pain, rectal bleeding, change in her bowel habits. She has had no history of pancreatitis or hepatitis or jaundice. She denies any dysuria or hematuria. She denies any new bone or joint issues. She has no history of CVA or seizure. There is no history of deep venous thrombosis (DVT) or pulmonary embolus. PHYSICAL EXAMINATION: Reveals a pleasant older woman, appearing her stated age. She is alert and oriented. Skin: Is warm and dry. Neck is without mass. Heart exam shows a regular rhythm with loud valve sounds consistent with her prosthetic valves. Lungs are clear. The right breast shows a roughly 1.5 cm firm nodule at about the 6 o'clock position about 2 cm below the edge of the areola. This involves the overlying skin and is firm but not tender. It is mobile relative to the chest wall. There are no palpable axillary or supraclavicular nodes on either side. She has a well-healed mastectomy scar on the left. IMPRESSION 1. Right breast cancer for lumpectomy and sentinel lymph node biopsy. 2. Aortic and mitral mechanical prosthetic valve. 3. Congestive heart failure. 4. Diabetes mellitus type 2. 5. Chronic kidney disease, stage III to IV. 6. Hypertension. 7. Hyperlipidemia. PLAN The patient was admitted to begin intravenous heparin. She has only held her Coumadin one-night but I elected not to reschedule her surgery, but to proceed. Her surgery should have limited risk of bleeding for a right breast lumpectomy and a sentinel lymph node biopsy. Therefore I do not believe it will be a significant risk if her Coumadin has not completely resolved in its effect. She has labs ordered and we will initiate a heparin drip based on the results to maintain her anticoagulation. Most of her regular medications will be continued. The heparin will be discontinued at approximately 7 o'clock in the morning on March 20. She is scheduled for her injection for her sentinel lymph node biopsy approximated at 11 o'clock in the morning on March 20. She would then go directly to the OR for her procedure. Once her surgery has been completed, I would anticipate she would be in the hospital for another 1-2 days to restart her anticoagulation with the Coumadin and have her INR to an acceptable level prior to discharge. The patient was counseled regarding the surgery to include the risks and possible benefits. Risks include but are not limited to bleeding, infection, scarring, adverse drug reaction, need for further surgery, and injury of internal organs. I did discuss with her that her Coumadin will not be completely worn off at the time of the surgery and that I think her risk is pretty low for any significant hemorrhage. I will start her heparin today and continue this overnight to be discontinued early in the morning. We will recheck her numbers in the morning as well. The patient had an opportunity to ask questions and desires to proceed with the surgery as I have outlined it.
[2019-03-20] VITALS (10 sets, daily range): BP systolic 132–178; BP diastolic 61–78
[2019-03-20 05:16] LABS: INR 1.92; PROTHROMBIN TIME 22.3 SECONDS (12.1-14.4)
[2019-03-20] MEDS ORDERED: LR 1,000 ML IV ONE (06:00)
[2019-03-20 06:25] LABS: PARTIAL THROMBOPLASTIN TIME 180.2 SECONDS (25.4-37.6)
[2019-03-20] MEDS: HumaLOG INSULIN (NovoLOG) PER UNIT SC SCH ×4 (07:30→20:32)
[2019-03-20] MEDS ORDERED: LEVEMIR (INSULIN DETEMIR) 1 UNITS/0.01ML SC SCH (08:00)
[2019-03-20] MEDS: SPIRONOLACTONE 25 MG TAB PO SCH (08:04)
[2019-03-20] MEDS: CARVedilol 6.25 MG TAB PO SCH ×2 (08:04→20:37)
[2019-03-20] MEDS: **hydrALAZINE** 10 MG TAB PO SCH ×3 (08:04→20:37)
[2019-03-20 10:44] LABS: INR 1.7; PROTHROMBIN TIME 20.3 SECONDS (12.1-14.4)
[2019-03-20 10:50] LABS: PARTIAL THROMBOPLASTIN TIME 54.7 SECONDS (25.4-37.6)
[2019-03-20] MEDS ORDERED: METHYLENE BLUE 0.5% (5MG/ML) 10 ML AMP (PROVAYBLUE)(Q9968 PER 1MG) As Ordered ONE (13:35)
[2019-03-20] MEDS ORDERED: BUPIVACAINE HCL 0.25% 30 ML VIAL As Ordered ONE (13:35)
[2019-03-20] MEDS ORDERED: PROPOFOL 200 MG/20 ML VIAL As Ordered ONE ×2 (14:08→15:43)
[2019-03-20] MEDS ORDERED: dexameTHASONE 4 MG/ML 1ML VIAL (J1100) As Ordered ONE (14:08)
[2019-03-20] MEDS ORDERED: MIDAZOLAM INJ 2 MG/2 ML VIAL (J2250) As Ordered ONE (14:08)
[2019-03-20] MEDS ORDERED: LIDOCAINE 2% INJ 100 MG/5 ML SDV (FOR ANES.) As Ordered ONE (14:08)
[2019-03-20] MEDS ORDERED: fentaNYL 100 MCG/2 ML INJECTION (J3010) As Ordered ONE ×2 (14:08→15:43)
[2019-03-20] MEDS ORDERED: ePHEDrine SULFATE 25 MG/5 ML(5MG/ML) SYRINGE As Ordered ONE ×2 (14:26→14:42)
[2019-03-20] MEDS ORDERED: ROCURONIUM BROMIDE 50 MG/5 ML VIAL As Ordered ONE ×2 (14:49→15:30)
[2019-03-20] MEDS ORDERED: METOCLOPRAMIDE INJ 10MG/2ML VIAL (J2765) As Ordered ONE (15:51)
[2019-03-20] MEDS ORDERED: SUGAMMADEX SODIUM 500 MG/5 ML VIAL (BRIDION) As Ordered ONE (16:04)
[2019-03-20] MEDS ORDERED: hydrALAZINE INJ 20 MG/ML VIAL As Ordered ONE (16:21)
[2019-03-20] MEDS: NORCO, ANEXSIA 5/325MG TABLET (HYDROcodone/ACETAMINOPHEN) PO PRN ×4 (16:58→18:03)
[2019-03-20] MEDS ORDERED: HYDROMORPHONE HCL 0.5 MG/ 0.5 ML SYRINGE (J1170 PER 1) IV PRN ×2 (17:00→19:30)
[2019-03-20] MEDS ORDERED: LR 1,000 ML IV SCH ×2 (17:00→19:30)
[2019-03-20] MEDS ORDERED: MORPHINE 4 MG/ML 1ML VIAL/SYRINGE (J2270) IV PRN (17:00)
[2019-03-20] MEDS ORDERED: fentaNYL 100 MCG/2 ML INJECTION (J3010) IV PRN ×2 (17:00→19:30)
[2019-03-20] MEDS ORDERED: NORCO, ANEXSIA 5/325MG TABLET (HYDROcodone/ACETAMINOPHEN) As Ordered ONE (17:21)
[2019-03-20] MEDS ORDERED: NORCO, ANEXSIA 5/325MG TABLET (HYDROcodone/ACETAMINOPHEN) PO PRN ×2 (17:30→19:30)
[2019-03-20] MEDS: CALCIUM ACETATE 667 MG GELCAP PO SCH (18:08)
[2019-03-20] MEDS: TORSEMIDE 20 MG TAB PO SCH (20:35)
[2019-03-20] MEDS: SIMVASTATIN 40 MG TAB PO SCH (20:35)
[2019-03-20] MEDS ORDERED: WARFARIN SOD 2.5 MG TAB PO ONE (22:15)
[2019-03-20] MEDS: HEPARIN DRIP 25,000 UNITS in APPROPRIATE DILUENT 1 EA IV SCH (23:27)
[2019-03-21 03:00] VITALS: BP 129/59
[2019-03-21 07:00] LABS: INR 1.62; PROTHROMBIN TIME 19.5 SECONDS (12.1-14.4)
[2019-03-21 07:01] LABS: PARTIAL THROMBOPLASTIN TIME 52.8 SECONDS (25.4-37.6)
[2019-03-21] MEDS: HEPARIN DRIP 25,000 UNITS in APPROPRIATE DILUENT 1 EA IV SCH (07:36)
--- NOTE | 2019-03-21 09:00 | RO ---
DATE OF PROCEDURE: 03/20/2019 PREOPERATIVE DIAGNOSIS: Right breast cancer. POSTOPERATIVE DIAGNOSIS: Right breast cancer. PROCEDURES PERFORMED: 1. Right breast and axilla sentinel lymph node biopsy. 2. Right partial mastectomy (lumpectomy). SURGEON: Marcus Zaldivar MD URBAN REDEVELOPMENT SPECIALIST: DOV Guadalupe (Nurse Marty was necessary for aid and assistance in providing adequate retraction and exposure during the sentinel lymph node biopsy in particular.) ANESTHESIA: General. INDICATIONS FOR THE PROCEDURE: Patient is a 73-year-old woman who has previously undergone a left mastectomy for left breast cancer. She had fairly recently noted a lump in the lower midportion of the right breast and a core needle biopsy confirmed infiltrating ductal carcinoma. She is now for a sentinel lymph node biopsy and a right partial mastectomy. OPERATIVE PROCEDURE: The patient was brought to the operating room after having lymphoscintigraphy performed of the right breast and axilla. Once this had been accomplished in the x-ray department, she was moved to the operating room and placed supine on the operating table. She was placed under general anesthesia. The right breast was prepped with alcohol locally and several aliquots of methylene blue were infiltrated into the periareolar area, particularly along the lateral aspect. The right breast and chest wall and axilla and upper arm were then prepped and draped in a sterile fashion. Inspection with the NeoProbe revealed one area of gamma activity in the anterior aspect of the upper portion of the axilla. An approximately 3 cm transverse incision was made over this portion of the axilla staying behind the anterior axillary fold. The incision was deepened through the subcutaneous tissues and the axillary fascia was opened. Dissection was then carried down into the axilla using a combination of sharp and blunt dissection. The dissection was guided by the NeoProbe. A single lymph node about 7 or 8 mm in maximum diameter, which appeared to be somewhat darkened at one end, was identified. This was dissected free. A 10-second gamma count revealed a count of 3958. Background count was minimal and there were no other sites of gamma activity identified within the axilla. The node was sent for frozen section. While awaiting the results, I began the closure of the axilla with some chromic sutures in the axillary fascia. The subcutaneous tissues were closed with chromic and the skin edges with a running subcuticular #4-[address] Townsend contacted me by phone to report that on the frozen sections it identified what she described as three small, tiny even collections of abnormal cells consistent with tiny foci of metastases in the subcapsular aspect of the node. She had identified these on the portion of the node that was prepared for the frozen section and advised that it may well be that there will not be any additional tumor foci within the node. I elected not to attempt identification and removal of any additional axillary nodes. I then turned my attention to the breast itself. She had a subcutaneous nodule at about the 6 o'clock position, perhaps 3 cm below the edge of the areola. She had been on some Femara over the last few weeks to a month and I would estimate that there has been some reduction in the appearance of the tumor. A transversely oriented ellipse approximately 7 cm in length x 4 cm in width was marked to provide an adequate margin. This was incised with the scalpel and dissection was then carried into the subcutaneous tissues and into the breast using the needle tip cautery. Using palpation to guide dissection approximately 6 cm long x 4 cm wide x 3 cm in thickness was excised. This was marked with the Pin or Peg margin marker system and sent for permanent pathology. There appeared to be an adequate margin on all sides of the tumor by palpation. The wound was inspected and hemostasis was ensured with cautery. Several larger bleeding points were controlled with [id number] sutures of #3-0 chromic. The skin was elevated superiorly and inferiorly off of the breast tissue to allow some mobility for closure of the breast tissue and skin. The breast tissue was then approximated in two layers using interrupted simple sutures of #3-0 chromic. The skin edges were then approximated with multiple buried simple sutures of #3-0 Vicryl. Some 0.25% Marcaine had been infiltrated into the breast and along the subcutaneous tissues of the incision. The lateral end of the incision was tailored slightly to avoid a dog ear. The skin edge was then approximated with a running subcuticular #4-0 Vicryl and Steri-Strips. A large bandage was applied with some tape as a pressure dressing. The patient tolerated the procedure well without apparent complication. She was awakened in the operating room, extubated and moved to the recovery room in stable condition.
[2019-03-21] MEDS: SPIRONOLACTONE 25 MG TAB PO SCH (09:28)
[2019-03-21] MEDS: CARVedilol 6.25 MG TAB PO SCH ×2 (09:28→20:26)
[2019-03-21] MEDS: CALCIUM ACETATE 667 MG GELCAP PO SCH ×3 (09:28→17:21)
[2019-03-21] MEDS: FEBUXOSTAT 40 MG TABLET (ULORIC) PO SCH (09:28)
[2019-03-21] MEDS: TORSEMIDE 20 MG TAB PO SCH ×2 (09:29→20:27)
[2019-03-21] MEDS: LEVEMIR (INSULIN DETEMIR) 1 UNITS/0.01ML SC SCH (09:29)
[2019-03-21] MEDS: **hydrALAZINE** 10 MG TAB PO SCH ×3 (09:29→20:27)
[2019-03-21] MEDS: HumaLOG INSULIN (NovoLOG) PER UNIT SC SCH ×4 (09:30→21:00)
[2019-03-21 10:00] VITALS: BP 136/62
[2019-03-21 14:00] VITALS: BP 117/55
--- NOTE | 2019-03-21 14:49 | REP ---
RIGHT BREAST LYMPHOSCINTIGRAPHY The procedure was performed under the direct supervision of Dr. Lorenz. The images were reviewed with Dr. Lorenz. The risks and benefits of the procedure were explained to the patient and informed consent was obtained. Using topical anesthetic and sterile technique 1.1 mCi of technetium 99 filtered sulfur colloid was injected subdermally and eight fractionated periareolar injections. Images obtained 1 hour after injection show activity at the periareolar injection sites. The patient tolerated the procedure well and there were no immediate complications. Reviewed by VISHAL Marquis 03/20/2019 04:34 P Electronically Signed by Dakota Lorenz MD 03/21/2019 10:58 A
[2019-03-21] MEDS ORDERED: WARFARIN SOD 5 MG TAB PO ONE (18:00)
[2019-03-21] MEDS: SIMVASTATIN 40 MG TAB PO SCH (20:23)
[2019-03-21 22:00] VITALS: BP 132/62
[2019-03-22 02:00] VITALS: BP 120/66
[2019-03-22 06:00] VITALS: BP 121/59
[2019-03-22] MEDS: TORSEMIDE 20 MG TAB PO SCH ×2 (08:18→21:02)
[2019-03-22] MEDS: CALCIUM ACETATE 667 MG GELCAP PO SCH ×3 (08:18→17:07)
[2019-03-22] MEDS: SPIRONOLACTONE 25 MG TAB PO SCH (08:18)
[2019-03-22] MEDS: **hydrALAZINE** 10 MG TAB PO SCH ×3 (08:19→21:03)
[2019-03-22] MEDS: CARVedilol 6.25 MG TAB PO SCH ×2 (08:19→21:04)
[2019-03-22] MEDS: FEBUXOSTAT 40 MG TABLET (ULORIC) PO SCH (08:19)
[2019-03-22] MEDS: HumaLOG INSULIN (NovoLOG) PER UNIT SC SCH ×4 (08:20→21:00)
[2019-03-22] MEDS: LEVEMIR (INSULIN DETEMIR) 1 UNITS/0.01ML SC SCH (08:20)
[2019-03-22 09:33] LABS: INR 1.8; PROTHROMBIN TIME 21.2 SECONDS (12.1-14.4)
[2019-03-22 10:00] VITALS: BP 138/63
[2019-03-22] MEDS: HEPARIN DRIP 25,000 UNITS in APPROPRIATE DILUENT 1 EA IV SCH (11:48)
[2019-03-22 18:00] VITALS: BP 149/72
[2019-03-22] MEDS ORDERED: WARFARIN SOD 5 MG TAB PO ONE (20:00)
[2019-03-22] MEDS: SIMVASTATIN 40 MG TAB PO SCH (21:02)
[2019-03-22 22:00] VITALS: BP 164/69
[2019-03-23 06:00] VITALS: BP 152/66
[2019-03-23 07:16] LABS: INR 2.11; PROTHROMBIN TIME 24.1 SECONDS (12.1-14.4)
[2019-03-23 07:18] LABS: PARTIAL THROMBOPLASTIN TIME 106.1 SECONDS (25.4-37.6)
[2019-03-23] MEDS: TORSEMIDE 20 MG TAB PO SCH (08:22)
[2019-03-23] MEDS: **hydrALAZINE** 10 MG TAB PO SCH ×2 (08:22→15:45)
[2019-03-23] MEDS: CALCIUM ACETATE 667 MG GELCAP PO SCH ×2 (08:22→11:55)
[2019-03-23] MEDS: FEBUXOSTAT 40 MG TABLET (ULORIC) PO SCH (08:22)
[2019-03-23] MEDS: SPIRONOLACTONE 25 MG TAB PO SCH (08:22)
[2019-03-23] MEDS: CARVedilol 6.25 MG TAB PO SCH (08:22)
[2019-03-23] MEDS: HumaLOG INSULIN (NovoLOG) PER UNIT SC SCH ×2 (08:23→11:56)
[2019-03-23] MEDS: LEVEMIR (INSULIN DETEMIR) 1 UNITS/0.01ML SC SCH (08:23)
[2019-03-23 15:45] VITALS: BP 173/88
--- NOTE | 2019-03-24 07:49 | IPN ---
DATE: 03/23/2019 HISTORY: The patient is now postop day #3 from her right sentinel node biopsy and partial mastectomy for breast cancer. Her pathology is pending. She was admitted to the hospital for heparin bridge therapy due to the presence of mechanical aortic and mitral valves. She received 5 mg of Coumadin last night and remains on her heparin drip at 600 units per hour. The patient reports no significant problems. Vital signs show that she has been afebrile over the past 24 hours with a pulse in the 60s and 70s and a good blood pressure. Her room air oxygenations are normal. Intake and output shows that she had 1700 in yesterday with 900 recorded out. Her weight has been remaining stable. PHYSICAL EXAMINATION: The patient is alert and oriented and comfortable. Heart exam shows a regular rhythm. Her breast dressing is changed today. Her axillary incision is healing well with no sign of infection. She has some fairly dense bruising across the lower portion of the breast extending out past the lateral margin of the breast slightly. There is no sign of hematoma. There is no sign of infection. She does have an open blister about 2 to 2-1/2 cm in diameter which is at the area of the posterior axillary fold where the tape had been pulling on the skin. LABORATORY: Today, show a protime of 24.1 with an INR of 2.11 which is significantly up from 1.8 yesterday and her PTT this morning was 106. IMPRESSION: The patient is doing well from her surgery. Her prothrombin time and INR I think are now high enough to stop her heparin drip. She has had Coumadin 5 mg each day for the last two days and her PT and INR are rising nicely. PLAN: The patient's heparin drip will be stopped and she will be discharged home today. She will resume all of her usual medications and her diet. I advised her that she can shower if she chooses, but should try to avoid washing off the Steri-Strips. I advised her that there is an open blister that should be dressed with a dressing and some antibiotic ointment twice a day until this heals. She has a followup appointment in my office on March 26. She is due to have her coagulation studies rechecked as well on the and these will be forwarded to the cardiology office as usual. The patient was advised to watch for any signs of infection or bleeding and contact me if necessary.
[2019-03-26] MEDS ORDERED: LETROZOLE 2.5 MG TAB PO SCH (09:00)
== END 2019-03-23 16:08 | disposition home or self-care (01) | DRG 580 ==
LOC: M MSPAV 13:15 → EDSTATUS 03-20 13:10
PROVIDERS: ADMIT Surgery; ATTEND Surgery
PROC: 0HBT0ZZ Excision of Right Breast, Open Approach (ICD-10-PCS; 2019-03-20)
PROC: 07B50ZX Excision of Right Axillary Lymphatic, Open Approach, Diagnostic (ICD-10-PCS; principal; 2019-03-20 13:10)
DX: C50.811 Malignant neoplasm of overlapping sites of right female breast (principal); I50.32 Chronic diastolic (congestive) heart failure; N18.4 Chronic kidney disease, stage 4 (severe); I13.0 Hypertensive heart and chronic kidney disease with heart failure and stage 1 through stage 4 chronic kidney disease, or unspecified chronic kidney disease; Z95.2 Presence of prosthetic heart valve; Z79.01 Long term (current) use of anticoagulants; E11.40 Type 2 diabetes mellitus with diabetic neuropathy, unspecified; E78.5 Hyperlipidemia, unspecified

== ENCOUNTER → 2019-05-29 | Outpatient (CLI) | payer MEDICARE ==
[~2019-05-29] MED LIST changes: -ACETAMINOPHEN TAB 650MG DOSE (2X325MG) PO PRN; +DOCU100C17 PO; +FERR325T3 PO
--- NOTE | 2019-05-30 15:01 | RADONC ---
RADIATION ONCOLOGY CONSULTATION NOTE DATE: 05/29/2019 CHART NUMBER: [id number] DIAGNOSIS: Right breast cancer. STAGE: IA, pT1c,N0 (i+) (sn), ER positive, MD positive, HER2/joy negative, moderately differentiated invasive ductal carcinoma. ECOG PERFORMANCE STATUS: 0. CONSULTATION NOTE: Ms. Leach is a very pleasant 73-year-old white female with the diagnosis of what appears to be a stage IA, pT1cN0 (i+) (sn) moderately differentiated invasive ductal carcinoma of the right breast status post lumpectomy and sentinel lymph node biopsy who is presenting to us today for discussion of postoperative radiation therapy for conservative breast management. HISTORY OF PRESENT ILLNESS: The patient's history of breast cancer actually dates back to the year 2009 when in May of that year she was found to have a left breast mass which was biopsied in the 10 o'clock position and found to be a moderately differentiated invasive ductal carcinoma. That tumor was estrogen receptor and progesterone receptor positive and HER2 negative. She underwent lumpectomy and sentinel lymph node biopsy and pathology revealed a 2.5 cm lesion. One sentinel lymph node was sampled and was negative for malignancy. The patient received no postoperative chemotherapy but was treated with adjuvant hormonal therapy with anastrozole for 5 years. She then stopped the anastrozole. The patient did well until approximately late November or early December of this year when she developed a palpable mass in her right breast. She was seen by her primary care doctor and a subsequent mammogram was done on 01/21/2019 which showed a suspicious abnormality in the 6 o'clock position of the right breast. On 02/06/2019 the patient underwent right breast core biopsy and pathology revealed a moderately differentiated infiltrating ductal carcinoma. The tumor was estrogen receptor and progesterone receptor positive and HER2 negative. On 03/20/2019 the patient underwent lumpectomy and sentinel lymph node biopsy with Dr. Marcus Zaldivar MD. Pathology revealed a 1.6 cm moderately differentiated invasive ductal carcinoma. All margins of resection were negative with the closest margin measuring 5 mm. The tumor again was noted to be estrogen receptor positive, progesterone receptor positive and HER2 negative. One sentinel lymph node was sampled and was positive for individual tumor cells present. The patient was seen by our medical oncologist, Dr. Ohara who recommended letrozole hormonal treatment. She has now been referred to me for discussion of postoperative radiation therapy for conservative breast management. ALLERGIES: The patient is allergic to AMLODIPINE. PAST MEDICAL HISTORY: The patient's past medical history is positive for history of diabetes, heart disease, stage 4 renal failure and hypertension. She also has had mitral and aortic valve replacement surgeries, cataract surgery and surgery on the right ankle. SOCIAL HISTORY: The patient not does not smoke cigarettes. She drinks alcohol socially. FAMILY HISTORY: The patient's family his history is positive for a sister who at the age of 70 of some type of cancer. REVIEW OF SYSTEMS: The patient's review of systems is noncontributory. PHYSICAL EXAMINATION: Physical examination was deferred at this time since the patient is refusing our services. ASSESSMENT: I believe this patient would be a candidate for external beam radiation therapy and I have so informed her. I have discussed in significant detail the potential benefits as well as possible acute and chronic sequelae of external beam radiation therapy. We discussed logistics of treatment planning, simulation and subsequent fractionated daily radiation treatments. I discussed with her the reasoning behind radiation as well as the NCCN guidelines. I discussed the theoretical issues, difficulties presenting in her with her tumor tracing from its primary site to the positive sentinel node region. I also discussed that no other nodes were sampled and that we are unsure as to the total status of her axillary region and that therefore we cannot be totally secure with the absolute status of her axillary region. From our initial conversation throughout the course of dialog the patient has let me know clearly that she does not wish to undergo radiation. The patient is over 70 years of age and does have a stage T1 tumor. According to the most recent staging classifications she technically has N0 disease. The disease is hormone sensitive being estrogen receptor and progesterone receptor positive and the patient will be treated with letrozole. In light of this, it is not unreasonable for her to decide against undergoing treatment. In addition, the patient has a long history of diabetes, a stage 4 kidney failure and heart disease as well as hypertension. In light of this I also cannot argue very strongly with her with regards to initiating treatment. She is planning on being on the letrozole for 10 years which should hold her in good stead until she is 83 which considering her overall disease status may be sufficient. I have given the patient a series of literature and recommendations as well as the NCCN guidelines. I have asked her to feel free and contact me at anytime if she changes her mind and wishes to consider radiation. We can then address any further concerns and initiate treatments without delay. Thank you for allowing us to participate in the care of this very pleasant woman. If I could be of any further assistance, please free to contact me at anytime. cc: PRINCE Rick MD
== END ==
LOC: M ONCR 09:26
PROVIDERS: ATTEND Radiology Radiation Oncology
DX: C50.911 Malignant neoplasm of unspecified site of right female breast (principal)

== ENCOUNTER → 2019-09-17 | Outpatient (REF) | payer MEDICARE ==
[2019-09-17 17:35] LABS: PERCENT SATURATION 17.2 % (13.2-45.0)
== END ==
LOC: M LAB REF 16:54
PROVIDERS: ATTEND Nurse Practitioner Family
DX: N18.9 Chronic kidney disease, unspecified (principal); D63.1 Anemia in chronic kidney disease

== ENCOUNTER → 2019-12-10 | Outpatient (CLI) | payer MEDICARE ==
--- NOTE | 2019-12-10 15:33 | REP ---
Bilateral upper extremity venous and arterial Doppler ultrasound: History: History of arteriovenous fistula left antecubital fossa June 07, 2018 nonfunctioning. New vein mapping study. Findings: These measurements were made with a tourniquet in place. There is no evidence of venous thrombosis in either upper extremity. Normal biphasic and triphasic arterial wave forms are noted bilaterally. There is to and fro blind ending of flow in a short vessel attached to the distal brachial artery on the left in the antecubital fossa which is believed to be related to the previous failed AV fistula. Right upper extremity vein diameter chart: Upper humerus basilic 2.8 mm, cephalic 2.6 mm Lower humerus basilic 1.8 mm, cephalic 2.2 mm Upper forearm basilic not seen, cephalic 1.7 mm Lower forearm basilic not seen, cephalic 1.1 mm Median cubital not seen Left upper extremity vein diameter chart: Upper humerus basilic 3.4 mm, cephalic 2.1 mm Lower humerus basilic 2.3 mm, cephalic 1.2 mm Upper forearm basilic 2.2 mm, cephalic 1.8 mm Lower forearm basilic not seen, cephalic 1.5 mm Median cubital not seen Right upper extremity arterial Doppler velocity and size diameter chart: Axillary artery 53 cm/S, 7.5 mm Brachial artery 112 cm/S, 4 mm Radial artery 102 cm/S, 1.8 mm Ulnar artery 70 cm/S, 1.9 mm Left upper extremity arterial Doppler velocity and size diameter chart: Axillary artery 77 cm/S, 6.3 mm Brachial artery distal 113 cm/S, 3.9 mm Radial artery 78 cm/S, 1.7 mm Ulnar artery 54 cm/S, 1.2 mm Electronically Signed by Neville Hoffmann MD 12/10/2019 03:24 P
== END ==
LOC: M RAD 09:18
PROVIDERS: ATTEND Physician Assistant
DX: Z01.818 Encounter for other preprocedural examination (principal); N18.4 Chronic kidney disease, stage 4 (severe)

== ENCOUNTER → 2020-08-19 | Outpatient (CLI) | payer MEDICARE ==
[~2020-08-19] MED LIST changes: +AMLO1TAB24 PO; -AMLO5TAB6 PO
--- NOTE | 2020-08-19 12:40 | REPMRS ---
Patient History The patient states she had a clinical breast exam in 2019. Family history of ovarian cancer in sister, ovarian cancer in sister. Benign US guidance needle placement of the right breast, January 10, 2012. Mastectomy of the left breast, 2009. 3D TOMOSYNTHESIS WAS PERFORMED. AMADEO Jimenez Digital Woman Screen Mammo: August 19, 2020 - Exam #: [id number] Bilateral CC and MLO view(s) were taken. Technologist: Arleth Severino, Technologist Prior study comparison: January 21, 2019, right breast digital mammo diagnostic unilateral, performed at [facility]. September 05, 2017, bilateral digital mammo screening bilat, performed at [facility]. FINDINGS: The breast tissue is heterogeneously dense. This may lower the sensitivity of mammography. There has been no change in the appearance of the mammogram from the prior studies. There is a moderate amount of residual fibroglandular tissue. There is no interval development of dominant mass, areas of architectural distortion, or clustered microcalcification typical of malignancy. No significant changes when compared with prior studies. Assessment: BI-RADS/ACR category 1 mammogram. Negative Mammogram. Recommendation Routine screening mammogram in 1 year (for women over age 40). This mammogram was interpreted with the aid of an FDA-approved computer-aided dectection system. Electronically Signed By: Dakota Lorenz MD 08/19/20 [id number]
== END ==
LOC: M WHC 11:42
PROVIDERS: ATTEND Internal Medicine Medical Oncology
DX: Z12.31 Encounter for screening mammogram for malignant neoplasm of breast (principal); Z85.3 Personal history of malignant neoplasm of breast; Z90.12 Acquired absence of left breast and nipple

== ENCOUNTER → 2020-09-06 | Outpatient (REF) | payer MEDICARE ==
[2020-09-06 15:05] LABS: PROTHROMBIN TIME 23.1 SECONDS (12.5-14.3)
== END ==
LOC: M LABDRWAD 12:31
PROVIDERS: ATTEND Physician Assistant
DX: Z95.2 Presence of prosthetic heart valve (principal); Z23 Encounter for immunization
CPT/HCPCS: 36415; 85610; 90682; 96372; G0008; G0463; J3420

== ENCOUNTER → 2020-12-03 | Outpatient (REF) | payer MEDICARE ==
[2020-12-03 18:16] LABS: PERCENT SATURATION 16.9 % (13.2-45.0)
== END ==
LOC: M LAB REF 16:47
PROVIDERS: ATTEND Nurse Practitioner Family
DX: D64.9 Anemia, unspecified (principal)

== ENCOUNTER 2021-01-04 14:58 | Inpatient (IN) | payer MEDICARE ==
[2021-01-04] VITALS (9 sets, daily range): BP systolic 159–233; BP diastolic 56–116
[~2021-01-04] VITALS: Ht 154.9 cm; Wt 72.6 kg
[~2021-01-04 14:58] MED LIST changes: -LISI-542 PO; +LISI-898 PO
--- OUTSIDE RECORDS SUMMARY | 2021-01-04 15:09 | CCD | Continuity of Care Document ---
Author Author Janie JAMES PA-C Organization Unknown Address [address] [place] [address], [place] [address] Phone [phone] Care Team Providers Care Tan Room Supervisor Name Role Phone Courtney Guevara AUTM [phone] Hector Longo MD AUTM [phone] Kayleen Ruiz MD AUTM [phone] Anselmo Cooley MD AUTM [phone] Pb Amanda MD AUTM [phone] Marcus Zaldivar MD AUTM [phone] Rachael Ward AUTM [phone] Sanna Scanlon MD AUTM [phone] Problems Active Problems Provider Date Chronic diastolic heart failure Carin James PA-C Onset: 04/01/2012 Benign hypertensive heart disease with congestive card iac failure Carin James PA-C Onset: 04/01/2012 Electrocardiogram abnormal Carin James PA-C Onset: 04/01 Rheumatic aortic stenosis with regurgitation Carin James PA-C Onset: 04/01/2012 Mitral insufficiency and aortic stenosis JERMAIN Mock Onset: 04/01/2012 Heart valve replacement Carin James PA-C Onset: 04/01/20 12 Pure hypercholesterolemia Carin James PA-C Onset: 2011 Obesity Carin James PA-C Onset: 04/01/2012 Rheumatic mitral stenosis with regurgitation Carin James PA-C Onset: 11/25/2015 Sinus node dysfunction Carin James PA-C Onset: 6 Dietary management surveillance Carin James PA-C Onset: 09/24/2017 Right bundle branch block Carin James PA-C Onset: 2016 Social History Type Date Description Comments Sex Unknown Tobacco Use Start: Unknown Never Smoked Cigarettes ETOH Use Never used alcohol Tobacco Use Start: Unknown Patient has never smoked Smoking Status Reviewed: 09/13/20 Patient has never smoked Exercise Type/Frequency Does housework sporadica lly Exercise Type/Frequency Walks daily with dog Exercise Limitations Shortness Of Breath Allergies, Adverse Reactions, Alerts Active Allergies Reaction Severity Comments Date Amlodipine GI Upset 10/31/2018 Inactive Allergies NKDA 04/29/2007 Medications Active Medications SIG Qnty Indications Ordering Provide r Date Dicyclomine HCL 20mg Tablets 1 by mouth four times daily as directed Rachael Ward FNP 09/12/2020 Hydralazine HCL 10mg Tablets 2 by mouth twice a day Rachael Ward FNP 020 Calcium Acetate (Phos Binder) 667mg Capsules 1 by mouth 3 times daily Isamar Ward FNP 09/12/2020 Torsemide 20mg Tablets 1 by mouth twice a day Courtney Guevara PA 09/01/2020 Vitamin D (Ergocalciferol) 1.25mg (42860 Ut) Capsules 1 by mouth every weekly Unknown 08/19 Vitamin B12 1000mcg Tablets ER 1 by mouth every day Unknown 09/02/2019 Vitamin Deficiency Injectable System-B12 1000mcg/ML Kit inject 1 kit once monthly Unknown Letrozole 2.5mg Tablets 1 by mouth once daily as directed Unknown 03/10/2019 Procrit 59262Dqol/ML Solution every other week Anselmo Cooley MD 018 Novolog Mix 70/30 Prefilled Flexpen (70-30)100Unit/ML Supn inject per sliding scale as directed U nknown 04/04/2018 Carvedilol 6.25mg Tablets 1 by mouth twice a day 180tabs I49.5 Kei Mobley MD 12/30/2017 Uloric 80mg Tablets 1 by mouth every day Unknown 12/30/2017 Levemir Flextouch 10 0Unit/ML Solution Pen-Inject inject as directed Courtney Guevara PA 1 Simvastatin 40mg Tablets 1 po qhs Courtney Guevara PA 04/01/2012 Iron Supplement 325(65Fe) mg Table ts 1 po q daily Courtney Guevara PA 04/01/2012 Amoxicillin 500mg Capsules 4 capsules po 1 hour prior to dental procedures (sbe) 4caps Other, P rovider 12/21/2011 Coumadin 2.5mg Tablets 1-2 by mouth daily as directed by cardiology 180tabs Kei Mobley MD Immunizations Description No Information Available Vital Signs Date Vital Result Comment 09/13/2020 9:10am Weight 153.00 lb Home Weight 154lb Height 61 inches 5'1" BMI (Body Mass Index) 28.9 kg/m2 Heart Rate 64 /min Regular Respiratory Rate 16 /min BP Systolic Right Arm 134 mmHg sitting, large cuf f BP Diastolic Right Arm 64 mmHg sitting, large cu ff 06/10/2020 9:01am Weight 147.00 lb Home Weight 148lb Home weight Height 61 inches 5'1" BMI (Body Mass Index) 27.8 kg/m2 Heart Rate 60 /min Regular Respiratory Rate 16 /min BP Systolic Right Arm 126 mmHg sitting, large cuf f BP Diastolic Right Arm 74 mmHg sitting, large cu ff Results Test Acquired Date Facility Test Result H/L Range Note Prothrombin Time 12/02/[address] [address] [phone] Prothrombin Time 36.0 SEC High 8.9-13.3 Inr 3.2 Normal 0.0-3.6 1 Prothrombin Time 11/17/[address] [address] [phone] Prothrombin Time 39.0 SEC High 8.9-13.3 Inr 3.5 Normal 0.0-3.6 2 PT/Inr 11/08/[address] [address] [phone] Prothrombin Time 19.3 SEC High 8.9-13.3 Inr 1.7 Normal 0.0-3.6 3 PT/Inr [address] [id number] [phone] Prothrombin Time 27.3 SEC High 8.9-13.3 Inr 2.4 Normal 0.0-3.6 4 PT/Inr 09/14/[address] [id number] [phone] Prothrombin Time 25.9 SEC High 8.9-13.3 Inr 2.3 Normal 0.0-3.6 5 PT/Inr 09/06/2020 [facility] nter [phone] Prothrombin Time 23.1 seconds High 12.5-14.3 Inr 2.00 Normal 6 PT/Inr 09/01/[address] [id number] [phone] Prothrombin Time 56.1 SEC High 8.9-13.3 Inr 5.0 Critical high 0.0-3.6 7 PT/Inr 08/17/[address] [id number] [phone] Prothrombin Time 39.9 SEC High 8.9-13.3 Inr 3.5 Normal 0.0-3.6 8 PT/Inr 08/11/[address] [id number] [phone] Prothrombin Time 66.0 SEC High 8.9-13.3 Inr 5.8 Critical high 0.0-3.6 9 PT/Inr 07/20/[address] [id number] [phone] Prothrombin Time 24.5 SEC High 8.9-13.3 Inr 2.2 Normal 0.0-3.6 10 PT/Inr 07/05/[address] [id number] [phone] Prothrombin Time 21.5 SEC High 8.9-13.3 Inr 1.9 Normal 0.0-3.6 11 PT/Inr 06/03/[address] [id number] [phone] Prothrombin Time 34.4 SEC High 8.9-13.3 Inr 3.0 Normal 0.0-3.6 12 1 Therapeutic Values of INR ar e generally between 2.0-3.0 except for Prosthetic Valves (High Risk 2.5-3.5) The use of INR is restricted to patient on stable oral anticoagulant therapy. 2 Therapeutic Values of INR ar e generally between 2.0-3.0 except for Prosthetic Valves (High Risk 2.5-3.5) The use of INR is restricted to patient on stable oral anticoagulant therapy. 3 Therapeutic Values of INR ar e generally between 2.0-3.0 except for Prosthetic Valves (High Risk 2.5-3.5) The use of INR is restricted to patient on stable oral anticoagulant therapy. 4 Therapeutic Values of INR ar e generally between 2.0-3.0 except for Prosthetic Valves (High Risk 2.5-3.5) The use of INR is restricted to patient on stable oral anticoagulant therapy. 5 Therapeutic Values of INR ar e generally between 2.0-3.0 except for Prosthetic Valves (High Risk 2.5-3.5) The use of INR is restricted to patient on stable oral anticoagulant therapy. 6 THERAPUTIC HUMAN INR VALUES INDICATIONS NORMAL RANGES PROPHYLAXIS/TREATMENT OF: VENOUS THROMBOSIS 2.0-3.0 PULMONARY EMBOLISM 2.0-3.0 PREVENTION OF SYSTEMIC EMBOLISM FROM: TISSUE HEART VALVES 2.0-3.0 ACUTE MYOCARDIAL INFARCTION 2.0-3.0 VALVULAR HEART DISEASE 2.0-3.0 ATRIAL FIBRILLATION 2.0-3.0 MECHANICAL VALVES(HIGH RISK) 2.5-3.5 RECURRENT MYOCARDIAL INFARCTION 2.5-3.5 7 Critical Results called to Britany Couch by [id number] at 1351 on 09/01/20 Therapeutic Values of INR are generally between 2.0-3.0 except for Prosthetic Valves (High Risk 2.5-3.5) The use of INR is restricted to patient on stable oral anticoagulant therapy. 8 Therapeutic Values of INR ar e generally between 2.0-3.0 except for Prosthetic Valves (High Risk 2.5-3.5) The use of INR is restricted to patient on stable oral anticoagulant therapy. 9 Critical Results given t o ED per Alina by [id number] at 2017 on 08/11/20 called to Rachelle(office)at 8:05 am 08/12/20 --- 08/12/20 0805 --- INR previously reported as: 5.8 CH Critical Results given to ED per Alina by [id number] at 2017 on 08/11/20 Therapeutic Values of INR are generally between 2.0-3.0 except for Prosthetic Valves (High Risk 2.5-3.5) The use of INR is restricted to patient on stable oral anticoagulant therapy. 10 Therapeutic Values of INR ar e generally between 2.0-3.0 except for Prosthetic Valves (High Risk 2.5-3.5) The use of INR is restricted to patient on stable oral anticoagulant therapy. 11 Therapeutic Values of INR ar e generally between 2.0-3.0 except for Prosthetic Valves (High Risk 2.5-3.5) The use of INR is restricted to patient on stable oral anticoagulant therapy. 12 Therapeutic Values of INR ar e generally between 2.0-3.0 except for Prosthetic Valves (High Risk 2.5-3.5) The use of INR is restricted to patient on stable oral anticoagulant therapy. Procedures Date Code Description Status 11/18/2020 97081 Anticoagulant MGMT F or Patient Taking Warfarin, Inc Review & Intr Completed 11/09/2020 06882 Anticoagulant MGMT F or Patient Taking Warfarin, Inc Review & Intr Completed 10/13/2020 22900 Anticoagulant MGMT F or Patient Taking Warfarin, Inc Review & Intr Completed 09/14/2020 59007 Anticoagulant MGMT F or Patient Taking Warfarin, Inc Review & Intr Completed 09/07/2020 23659 Anticoagulant MGMT F or Patient Taking Warfarin, Inc Review & Intr Completed 09/02/2020 78603 Anticoagulant MGMT F or Patient Taking Warfarin, Inc Review & Intr Completed 08/18/2020 21567 Anticoagulant MGMT F or Patient Taking Warfarin, Inc Review & Intr Completed 08/12/2020 73782 Anticoagulant MGMT F or Patient Taking Warfarin, Inc Review & Intr Completed 07/23/2020 26405 Anticoagulant MGMT F or Patient Taking Warfarin, Inc Review & Intr Completed 07/08/2020 12894 Anticoagulant MGMT F or Patient Taking Warfarin, Inc Review & Intr Completed 06/10/2020 42242 ECG 12-Lead Completed 06/04/2020 06743 Anticoagulant MGMT F or Patient Taking Warfarin, Inc Review & Intr Completed Medical Devices Description No Information Available Encounters Type Date Location Provider Dx Diagnosis Office Visit 09/13/2020 9:15a Main Office Carin James PA-C I50.3 2 Chronic diastolic (congestive) heart failure Office Visit 06/10/2020 9:15a Main Office Carin James, PA-C I50.3 2 Chronic diastolic (congestive) heart failure I11.0 Hypertensive heart disease w ith heart failure R94.31 Abnormal electrocardiogram [ ECG] [EKG] I45.0 Right fascicular block I49.5 Sick sinus syndrome I06.2 Rheumatic aortic stenosis wi th insufficiency I05.2 Rheumatic mitral stenosis wi th insufficiency Z95.2 Presence of prosthetic heart valve E78.00 Pure hypercholesterolemia, u nspecified Z71.3 Dietary counseling and surve illance Assessments Date Code Description Provider 11/18/2020 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 Carin Alvarezw, PA-C 11/18/2020 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 Carin Alvarezw, PA-C 11/09/2020 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 Viv Mcclain PA 11/09/2020 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 Viv Mcclain, PA 10/13/2020 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 Carin Navasenow, PA-C 10/13/2020 Z79.01 FDC (current) use of antic oagulants Carin Alvarezw, PA-C 09/14/2020 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 Carin Alvarezw, PA-C 09/14/2020 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 Carin Alvarezw, PA-C 09/13/2020 I50.32 Chronic diastolic (congestive) h eart failure Carin Alvarezw, PA-C 09/07/2020 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 Carin Navasenow, PA-C 09/07/2020 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 Carin Alvarezw, PA-C 09/02/2020 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 Carin Alvarezw, PA-C 09/02/2020 Z79.01 FDC (current) use of antic oagulants Carin Alvarezw, PA-C 08/18/2020 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 Carin Alvarezw, PA-C 08/18/2020 Z79.01 FDC (current) use of antic oagulants Carin Alvarezw, PA-C 08/12/2020 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 Carin Alvarezw, PA-C 08/12/2020 Z79.01 [facility]DC (current) use of antic oagulants Carin Navasromeow, PA-C 07/23/2020 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 Maria Del Carmen Schroeder, PA 07/23/2020 Z79.01 FDC (current) use of antic oagulants Maria Del Carmen Schroeder, PA 07/08/2020 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 Carin Navasromeow, PA-C 07/08/2020 Z79.01 FDC (current) use of antic oagulants Carin Navasenow, PA-C 06/10/2020 I50.32 Chronic diastolic (congestive) h eart failure Carin Navasromeow, PA-C 06/10/2020 I11.0 Hypertensive heart disease with heart failure Carin Navasromeow, PA-C 06/10/2020 R94.31 Abnormal electrocardiogram [ECG] [EKG] Carin Navasromeow, PA-C 06/10/2020 I45.0 Right fascicular block Carin Montalvo gopal, PA-C 06/10/2020 I49.5 Sick sinus syndrome Carin Onofre pauline, PA-C 06/10/2020 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 Carin Duffy Symenow, PA-C 06/10/2020 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 Carin Duffy Symenow, PA-C 06/10/2020 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 Carin Navasromeow, PA-C 06/10/2020 E78.00 Pure hypercholesterolemia, unspe cified Carin Duffy Symenow, PA-C 06/10/2020 Z71.3 Dietary counseling and surveilla nce Carin Alvarezw, PA-C 06/04/2020 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 Carin Navasromeow, PA-C 06/04/2020 Z79.01 FDC (current) use of antic oagulants Carin James PA-C Plan of Treatment Future Appointment(s):* 12/15/2020 10:45 am - Carin James PA-C at Main Office 09/13/2020 - Carin James PA-C* I50.32 Chronic diastolic (congestive) heart failure* New Labs:* Basic Metabolic Profile, Scheduled: 12/13/20 * Magnesium Level, Scheduled: 12/13/20 * Recommendations:* Follow a 2 grams sodium diet and 50 ounces fluid restriction per 24 hour and do daily weights. Call the office for weight gain of 3 lbs or more. * All * Follow up:* 3 month follow up. Functional Status Functional Condition Comment Date Status Independent with all ADL's Activ e Mental Status Description No Information Available Referrals Description No Information Available
--- OUTSIDE RECORDS SUMMARY | 2021-01-04 15:09 | CCD | Continuity of Care Document ---
Author Author Janie JAMES PA-C Organization Unknown Address [address] [place] [address], [place] [address] Phone [phone] Care Team Providers Care Sheet [employer] Name Role Phone Courtney Guevara AUTM [phone] Hector Longo MD AUTM [phone] Kayleen Ruiz MD AUTM [phone] Anselmo Cooley MD AUTM [phone] Pb Amanda MD AUTM [phone] Marcus Zaldivar MD AUTM [phone] Rachael Ward AUTM [phone] Sanna Scanlon MD AUTM [phone] Problems Active Problems Provider Date Chronic diastolic heart failure Carin Jmaes PA-C Onset: 04/01/2012 Benign hypertensive heart disease [...] Guevara PA 09/01/2020 Vitamin D (Ergocalciferol) 1.25mg (48063 Ut) Capsules 1 by mouth every weekly Unknown 08/19 Vitamin B12 1000mcg Tablets ER 1 by mouth every day Unknown 09/02/2019 Vitamin Deficiency Injectable System-B12 1000mcg/ML Kit inject 1 kit once monthly Unknown Letrozole 2.5mg Tablets 1 by mouth once daily as directed Unknown 03/10/2019 Procrit [id number] Solution every other week Anselmo Cooley MD [...] Result H/L Range Note Prothrombin Time 12/02/[address] [address] [phone] Prothrombin Time 36.0 SEC High 8.9-13.3 Inr 3.2 Normal 0.0-3.6 1 Prothrombin Time 11/17/[address] [address] [phone] Prothrombin Time 39.0 SEC High 8.9-13.3 Inr 3.5 Normal 0.0-3.6 2 PT/Inr 11/08/[address] [address] [phone] Prothrombin Time 19.3 SEC High 8.9-13.3 Inr 1.7 Normal 0.0-3.6 3 PT/Inr [address] [id number] [phone] Prothrombin Time 27.3 SEC High 8.9-13.3 Inr 2.4 Normal 0.0-3.6 4 PT/Inr 09/14/[address] [id number] [phone] Prothrombin Time 25.9 SEC High 8.9-13.3 Inr 2.3 Normal 0.0-3.6 5 PT/Inr 09/06/2020 [facility] nter [phone] Prothrombin Time 23.1 seconds High 12.5-14.3 Inr 2.00 Normal 6 PT/Inr 09/01/[address] [id number] [phone] Prothrombin Time 56.1 SEC High 8.9-13.3 Inr 5.0 Critical high 0.0-3.6 7 PT/Inr 08/17/[address] 9616081 [phone] Prothrombin Time 39.9 SEC High 8.9-13.3 Inr 3.5 Normal 0.0-3.6 8 PT/Inr 08/11/[address] 3239356 [phone] Prothrombin Time 66.0 SEC High 8.9-13.3 Inr 5.8 Critical high 0.0-3.6 9 PT/Inr 07/20/[address] 6835198 [phone] Prothrombin Time 24.5 SEC High 8.9-13.3 Inr 2.2 Normal 0.0-3.6 10 PT/Inr 07/05/[address] 9506657 [phone] Prothrombin Time 21.5 SEC High 8.9-13.3 Inr 1.9 Normal 0.0-3.6 11 PT/Inr 06/03/[address] 9936802 [phone] Prothrombin Time 34.4 SEC High 8.9-13.3 Inr [...] Critical Results called to Britany Couch by [id number] at 1351 on 09/01/20 Therapeutic Values of [...] anticoagulant therapy. Procedures Date Code Description Status 12/03/2020 04413 Anticoagulant MGMT F or Patient Taking Warfarin, Inc Review & Intr Completed 11/18/2020 97945 Anticoagulant MGMT F or Patient Taking Warfarin, Inc Review & Intr Completed 11/09/2020 41533 Anticoagulant MGMT F or Patient Taking Warfarin, Inc Review & Intr Completed 10/13/2020 47898 Anticoagulant MGMT F or Patient Taking Warfarin, Inc Review & Intr Completed 09/14/2020 39589 Anticoagulant MGMT F or Patient Taking Warfarin, Inc Review & Intr Completed 09/07/2020 17339 Anticoagulant MGMT F or Patient Taking Warfarin, Inc Review & Intr Completed 09/02/2020 31687 Anticoagulant MGMT F or Patient Taking Warfarin, Inc Review & Intr Completed 08/18/2020 44560 Anticoagulant MGMT F or Patient Taking Warfarin, Inc Review & Intr Completed 08/12/2020 46869 Anticoagulant MGMT F or Patient Taking Warfarin, Inc Review & Intr Completed 07/23/2020 52425 Anticoagulant MGMT F or Patient Taking Warfarin, Inc Review & Intr Completed 07/08/2020 53152 Anticoagulant MGMT F or Patient Taking Warfarin, Inc Review & Intr Completed 06/10/2020 25253 ECG 12-Lead Completed 06/04/2020 83236 Anticoagulant MGMT F or Patient Taking Warfarin, Inc Review & Intr Completed Medical Devices Description No Information Available Encounters Type Date Location Provider Dx Diagnosis Office Visit 09/13/2020 9:15a Main Office Carin James, PA-C I50.3 [...] surve illance Assessments Date Code Description Provider 12/03/2020 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 Carin Alvarezw, PA-C 12/03/2020 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 Carin Alvarezw, PA-C 11/18/2020 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 Carin Alvarezw, PA-C 11/18/2020 Z79.01 [facility] (current) use of antic oagulants Carin Navasenow, PA-C 11/09/2020 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 Viv Mcclain, PA 11/09/2020 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 Viv Mcclain, PA 10/13/2020 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 Carin Alvarezw, PA-C 10/13/2020 Z79.01 [facility] (current) use of antic oagulants Carin Navasenow, PA-C 09/14/2020 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 Carin Navasenow, PA-C 09/14/2020 Z79.01 [facility] (current) use of antic oagulants Carin Navasenow, PA-C 09/13/2020 I50.32 Chronic diastolic (congestive) h eart failure Carin Alvarezw, PA-C 09/07/2020 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 Carin Navasenow, PA-C 09/07/2020 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 Carin Navasenow, PA-C 09/02/2020 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 Carin Duffy Symenow, PA-C 09/02/2020 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 Carin Navasenow, PA-C 08/18/2020 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 Carin Duffy Symenow, PA-C 08/18/2020 Z79.01 [facility] (current) use of antic oagulants Carin Duffy Symenow, PA-C 08/12/2020 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 Carin Duffy Symenow, PA-C 08/12/2020 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 Carin Navasenow, PA-C 07/23/2020 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 Maria Del Carmen Schroeder, PA 07/23/2020 Z79.01 [facility] (current) use of antic oagulants Maria Del Carmen Schroeder, PA 07/08/2020 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 Carin Navasenow, PA-C 07/08/2020 Z79.01 [facility] (current) use of antic oagulants Carin Navasenow, PA-C 06/10/2020 I50.32 Chronic diastolic (congestive) h eart failure Carin Navasromeow, PA-C 06/10/2020 I11.0 Hypertensive heart disease with heart failure Carin E Rachel, PA-C 06/10/2020 R94.31 Abnormal electrocardiogram [ECG] [EKG] Carin Alvarezw, PA-C 06/10/2020 I45.0 Right fascicular block Carin herron, PA-C 06/10/2020 I49.5 Sick sinus syndrome Carin Onofre pauline, PA-C 06/10/2020 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
--- OUTSIDE RECORDS SUMMARY | 2021-01-04 15:09 | CCD | Continuity of Care Document ---
Author Author Janie LEMUS I PA Organization Unknown Address [address] [place] [address], [place] [address] Phone [phone] Care Team Providers Care [employer] Technical Director Name Role Phone Courtney Guevara AUTM [phone] Hector Longo MD AUTM [phone] Kayleen Ruiz MD AUTM [phone] Anselmo Cooley MD AUTM [phone] Pb Amanda MD AUTM [phone] Marcus Zaldivar MD AUTM [phone] Rachael Ward AUTM [phone] Sanna Scanlon MD AUTM [phone] Problems Active Problems Provider Date Chronic diastolic heart failure Carin Ramos PA-C Onset: 04/01/2012 Benign hypertensive heart disease with congestive card iac failure Carin Ramos PA-C Onset: 04/01/2012 Electrocardiogram abnormal Carin Ramos PA-C Onset: 04/01 Rheumatic aortic stenosis with regurgitation Carin Ramos PA-C Onset: 04/01/2012 Mitral insufficiency and aortic stenosis JERMAIN Mock Onset: 04/01/2012 Heart valve replacement Carin Ramos PA-C Onset: 04/01/20 12 Pure hypercholesterolemia Carin Ramos PA-C Onset: 2011 Obesity Carin Ramos PA-C Onset: 04/01/2012 Rheumatic mitral stenosis with regurgitation Carin Ramos PA-C Onset: 11/25/2015 Sinus node dysfunction Carin Ramos PA-C Onset: 6 Dietary management surveillance Carin Ramos PA-C Onset: 09/24/2017 Right bundle branch block Carin Ramos PA-C Onset: 2016 Social History Type Date [...] Guevara PA 09/01/2020 Vitamin D (Ergocalciferol) 1.25mg (28011 Ut) Capsules 1 by mouth every weekly Unknown 08/19 Vitamin B12 1000mcg Tablets ER 1 by mouth every day Unknown 09/02/2019 Vitamin Deficiency Injectable System-B12 1000mcg/ML Kit inject 1 kit once monthly Unknown Letrozole 2.5mg Tablets 1 by mouth once daily as directed Unknown 03/10/2019 Procrit [id number]/ML Solution every other week Anselmo Cooley MD [...] Test Result H/L Range Note Prothrombin Time 11/17/[address] [address] [phone] Prothrombin Time 39.0 SEC High 8.9-13.3 Inr 3.5 Normal 0.0-3.6 1 PT/Inr 11/08/[address] [address] [phone] Prothrombin Time 19.3 SEC High 8.9-13.3 Inr 1.7 Normal 0.0-3.6 2 PT/Inr [address] [address] [phone] Prothrombin Time 27.3 SEC High 8.9-13.3 Inr 2.4 Normal 0.0-3.6 3 PT/Inr 09/14/[address] [address] [phone] Prothrombin Time 25.9 SEC High 8.9-13.3 Inr 2.3 Normal 0.0-3.6 4 PT/Inr 09/06/2020 [facility] nter [phone] Prothrombin Time 23.1 seconds High 12.5-14.3 Inr 2.00 Normal 5 PT/Inr 09/01/[address] [address] [phone] Prothrombin Time 56.1 SEC High 8.9-13.3 Inr 5.0 Critical high 0.0-3.6 6 PT/Inr 08/17/[address] [address] [phone] Prothrombin Time 39.9 SEC High 8.9-13.3 Inr 3.5 Normal 0.0-3.6 7 PT/Inr 08/11/[address] [address] [phone] Prothrombin Time 66.0 SEC High 8.9-13.3 Inr 5.8 Critical high 0.0-3.6 8 PT/Inr 07/20/[address] [address] [phone] Prothrombin Time 24.5 SEC High 8.9-13.3 Inr 2.2 Normal 0.0-3.6 9 PT/Inr 07/05/[address] [address] [phone] Prothrombin Time 21.5 SEC High 8.9-13.3 Inr 1.9 Normal 0.0-3.6 10 PT/Inr 06/03/[address] [address] [phone] Prothrombin Time 34.4 SEC High 8.9-13.3 Inr 3.0 Normal 0.0-3.6 11 1 Therapeutic Values of INR ar e [...] patient on stable oral anticoagulant therapy. 5 THERAPUTIC HUMAN INR VALUES INDICATIONS NORMAL RANGES PROPHYLAXIS/TREATMENT OF: VENOUS THROMBOSIS 2.0-3.0 PULMONARY EMBOLISM 2.0-3.0 PREVENTION OF SYSTEMIC EMBOLISM FROM: TISSUE HEART VALVES 2.0-3.0 ACUTE MYOCARDIAL INFARCTION 2.0-3.0 VALVULAR HEART DISEASE 2.0-3.0 ATRIAL FIBRILLATION 2.0-3.0 MECHANICAL VALVES(HIGH RISK) 2.5-3.5 RECURRENT MYOCARDIAL INFARCTION 2.5-3.5 6 Critical Results called to Britany Couch by [id number] at 1351 on 09/01/20 Therapeutic Values of INR are generally between 2.0-3.0 except for Prosthetic Valves (High Risk 2.5-3.5) The use of INR is restricted to patient on stable oral anticoagulant therapy. 7 Therapeutic Values of INR ar e generally between 2.0-3.0 except for Prosthetic Valves (High Risk 2.5-3.5) The use of INR is restricted to patient on stable oral anticoagulant therapy. 8 Critical Results given t o DAMON Fuller by [id number] at 2017 on 08/11/20 called to Rachelle(office)at 8:05 am 08/12/20 --- 08/12/20 0805 --- INR previously reported as: 5.8 CH Critical Results given to DAMON Fuller by [id number] at 2016 on 08/11/20 Therapeutic Values of INR are generally between 2.0-3.0 except for Prosthetic Valves (High Risk 2.5-3.5) The use of INR is restricted to patient on stable oral anticoagulant therapy. 9 Therapeutic Values of INR ar e generally [...] therapy. Procedures Date Code Description Status 11/18/2020 68756 Anticoagulant MGMT F or Patient Taking Warfarin, Inc Review & Intr Completed 11/09/2020 11553 Anticoagulant MGMT F or Patient Taking Warfarin, Inc Review & Intr Completed 10/13/2020 89955 Anticoagulant MGMT F or Patient Taking Warfarin, Inc Review & Intr Completed 09/14/2020 17282 Anticoagulant MGMT F or Patient Taking Warfarin, Inc Review & Intr Completed 09/07/2020 48431 Anticoagulant MGMT F or Patient Taking Warfarin, Inc Review & Intr Completed 09/02/2020 88180 Anticoagulant MGMT F or Patient Taking Warfarin, Inc Review & Intr Completed 08/18/2020 00878 Anticoagulant MGMT F or Patient Taking Warfarin, Inc Review & Intr Completed 08/12/2020 47695 Anticoagulant MGMT F or Patient Taking Warfarin, Inc Review & Intr Completed 07/23/2020 94669 Anticoagulant MGMT F or Patient Taking Warfarin, Inc Review & Intr Completed 07/08/2020 78328 Anticoagulant MGMT F or Patient Taking Warfarin, Inc Review & Intr Completed 06/10/2020 82388 ECG 12-Lead Completed 06/04/2020 02446 Anticoagulant MGMT F or Patient Taking Warfarin, Inc Review & Intr Completed Medical Devices Description No Information Available Encounters Type Date Location Provider Dx Diagnosis Office Visit 09/13/2020 9:15a Main Office Carin Ramos PA-C I50.3 2 Chronic diastolic (congestive) heart failure Office Visit 06/10/2020 9:15a Main Office Carin Ramos PA-C I50.3 2 Chronic diastolic (congestive) heart [...] Presence of prosthetic heart curtis ve Carin E Symenow, PA-C 11/18/2020 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 Carin E Symenow, PA-C 11/09/2020 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 Viv Lemus, PA 11/09/2020 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 Viv Lemus, PA 10/13/2020 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 Carin E Symenow, PA-C 10/13/2020 Z79.01 custodial (current) use of antic oagulants Carin E Symenow, PA-C 09/14/2020 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 Carin E Symenow, PA-C 09/14/2020 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 Carin E Symenow, PA-C 09/13/2020 I50.32 Chronic diastolic (congestive) h eart failure Carin E Symenow, PA-C 09/07/2020 Z79.01 custodial (current) use of antic oagulants Carin E Symenow, PA-C 09/07/2020 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 Carin E Symenow, PA-C 09/02/2020 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 Carin E Symenow, PA-C 09/02/2020 Z79.01 custodial (current) use of antic oagulants Carin E Symenow, PA-C 08/18/2020 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 Carin E Symenow, PA-C 08/18/2020 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 Carin E Symenow, PA-C 08/12/2020 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31 Abnormal electrocardiogram [ECG] [EKG] Carin Ramos, PA-C 06/10/2020 I45.0 Right fascicular block Carin herron, PA-C 06/10/2020 I49.5 Sick sinus syndrome Carin carpenter, PA-C 06/10/2020 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 Carin E Kimw, PA-C 06/10/2020 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 Carin E Kimw, PA-C 06/10/2020 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 Carin E Kimw, PA-C 06/10/2020 E78.00 Pure hypercholesterolemia, unspe cified Carin E Kimw, PA-C 06/10/2020 Z71.3 Dietary counseling and surveilla nce Carin Ramos, PA-C 06/04/2020 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
--- OUTSIDE RECORDS SUMMARY | 2021-01-04 15:09 | CCD | Continuity of Care Document ---
Author Organization Unknown Address Unknown Phone Unavailable Care Team Providers Care Undergraduate Internship Name Role Phone Courtney Guevara AUTM [phone] Hector Longo MD AUTM [phone] Kayleen Ruiz MD AUTM [phone] Anselmo Cooley MD AUTM [phone] Pb Amanda MD AUTM [phone] Marcus Zaldivar MD AUTM [phone] Rachael Ward AUTM [phone] Sanna Scanlon MD AUTM [phone] Problems Active Problems Provider Date Chronic diastolic heart failure Carin Ramos PA-C Onset: 04/01/2012 Benign hypertensive heart disease with congestive card iac failure PRINCE Mock-C Onset: 04/01/2012 Electrocardiogram abnormal PRINCE Mock-C Onset: 04/01 Rheumatic aortic stenosis with regurgitation PRINCE Mock-C Onset: 04/01/2012 Mitral insufficiency and aortic stenosis PRINCE Mock- C Onset: 04/01/2012 Heart valve replacement PRINCE Mock-C Onset: 04/01/20 12 Pure hypercholesterolemia PRINCE Mock-C Onset: 2011 Obesity PRINCE Mock-C Onset: 04/01/2012 Rheumatic mitral stenosis with regurgitation PRINCE Mock-C Onset: 11/25/2015 Sinus node dysfunction PRINCE Mock-C Onset: 6 Dietary management surveillance aCrin Ramos PA-C Onset: 09/24/2017 Right bundle branch [...] Guevara PA 09/01/2020 Vitamin D (Ergocalciferol) 1.25mg (85130 Ut) Capsules 1 by mouth every weekly Unknown 08/19 Vitamin B12 1000mcg Tablets ER 1 by mouth every day Unknown 09/02/2019 Vitamin Deficiency Injectable System-B12 1000mcg/ML Kit inject 1 kit once monthly Unknown Letrozole 2.5mg Tablets 1 by mouth once daily as directed Unknown 03/10/2019 Procrit [id number] Solution every other week Anselmo oColey MD 018 Novolog Mix 70/30 Prefilled Flexpen [...] Date Facility Test Result H/L Range Note Renal Profile 12/03/2020 [facility] (315)- - Glucose 262 High 70-100 Blood Urea Nitrogen 45.3 High 5-21 Creatinine 2.4 High 0.6-1.5 GFR (Calculated) 20 Sodium 139.4 136-146 Potassium 4.07 3.5-5.3 Chloride 95.9 Low 98-110 Carbon Dioxide 30.7 20-32 Calcium 8.7 8.4-10.4 Phosphorus 3.4 Albumin 3.6 3.5-4.7 CBC without Differential 12/03/2020 [facility] ([facility])- - White Blood Count 6.7 4.3-10.9 Red Blood Count 3.09 Low 4.70-6.20 Platelets 227 130-400 Hemoglobin 9.0 Low 13.0-17.0 Hematocrit 28.7 Low 39.0-50.0 Prothrombin Time 12/02/[address] [id number] [phone] Prothrombin Time 36.0 SEC High 8.9-13.3 Inr 3.2 Normal 0.0-3.6 1 Prothrombin Time 11/17/[address] [id number] [phone] Prothrombin Time 39.0 SEC High 8.9-13.3 Inr 3.5 Normal 0.0-3.6 2 PT/Inr 11/08/[address] 4360449 [phone] Prothrombin Time 19.3 SEC High 8.9-13.3 Inr 1.7 Normal 0.0-3.6 3 PT/Inr [address] 9936054 [phone] Prothrombin Time 27.3 SEC High 8.9-13.3 Inr 2.4 Normal 0.0-3.6 4 PT/Inr 09/14/[address] 0730553 [phone] Prothrombin Time 25.9 SEC High 8.9-13.3 Inr 2.3 Normal 0.0-3.6 5 PT/Inr 09/06/2020 [facility] nter [phone] Prothrombin Time 23.1 seconds High 12.5-14.3 Inr 2.00 Normal 6 PT/Inr 09/01/[address] 0128104 [phone] Prothrombin Time 56.1 SEC High 8.9-13.3 Inr 5.0 Critical high 0.0-3.6 7 PT/Inr 08/17/[address] 5574866 [phone] Prothrombin Time 39.9 SEC High 8.9-13.3 Inr 3.5 Normal 0.0-3.6 8 PT/Inr 08/11/[address] 9354909 [phone] Prothrombin Time 66.0 SEC High 8.9-13.3 Inr 5.8 Critical high 0.0-3.6 9 PT/Inr 07/20/[address] [address] [phone] Prothrombin Time 24.5 SEC High 8.9-13.3 Inr 2.2 Normal 0.0-3.6 10 PT/Inr 07/05/[address] [address] [phone] Prothrombin Time 21.5 SEC High 8.9-13.3 Inr 1.9 Normal 0.0-3.6 11 1 Therapeutic Values of [...] Critical Results called to Britany Couch by [id number] at 1351 on 09/01/20 Therapeutic Values of [...] o ED per Alina by [id number] at 2016 on 08/11/20 called to Rachelle(office)at 8:05 am 08/12/20 --- 08/12/20 0805 --- INR previously reported as: 5.8 CH Critical Results given to ED per Alina by [id number] at 2016 on 08/11/20 Therapeutic Values of [...] therapy. Procedures Date Code Description Status 12/03/2020 04835 Anticoagulant MGMT F or Patient Taking Warfarin, Inc Review & Intr Completed 11/18/2020 32203 Anticoagulant MGMT F or Patient Taking Warfarin, Inc Review & Intr Completed 11/09/2020 75955 Anticoagulant MGMT F or Patient Taking Warfarin, Inc Review & Intr Completed 10/13/2020 53764 Anticoagulant MGMT F or Patient Taking Warfarin, Inc Review & Intr Completed 09/14/2020 78878 Anticoagulant MGMT F or Patient Taking Warfarin, Inc Review & Intr Completed 09/07/2020 60722 Anticoagulant MGMT F or Patient Taking Warfarin, Inc Review & Intr Completed 09/02/2020 80294 Anticoagulant MGMT F or Patient Taking Warfarin, Inc Review & Intr Completed 08/18/2020 39170 Anticoagulant MGMT F or Patient Taking Warfarin, Inc Review & Intr Completed 08/12/2020 22842 Anticoagulant MGMT F or Patient Taking Warfarin, Inc Review & Intr Completed 07/23/2020 69884 Anticoagulant MGMT F or Patient Taking Warfarin, Inc Review & Intr Completed 07/08/2020 69848 Anticoagulant MGMT F or Patient Taking Warfarin, Inc Review & Intr Completed 06/10/2020 36741 ECG 12-Lead Completed Medical Devices Description No Information Available [...] Presence of prosthetic heart curtis ve Carin Ramos, PA-C 12/03/2020 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 Carin Ramos, PA-C 11/18/2020 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 Carin Ramos, PA-C 11/18/2020 Z79.01 custodial (current) use of antic oagulants Carin Ramos PA-C 11/09/2020 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 Viv Mcclain PA 11/09/2020 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 Viv Mcclain PA 10/13/2020 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 Carin Ramos, PA-C 10/13/2020 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 Carin Ramos, PA-C 09/14/2020 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 Carin Ramos, PA-C 09/14/2020 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 Carin Alvarezw, PA-C 09/13/2020 I50.32 Chronic diastolic (congestive) h eart failure Carin Ramos, PA-C 09/07/2020 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 Carin Navasenow, PA-C 09/07/2020 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 Carin Duffy Symenow, PA-C 09/02/2020 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 Carin Duffy Symenow, PA-C 09/02/2020 Z79.01 custodial (current) use of antic oagulants Carin Duffy Symenow, PA-C 08/18/2020 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 Carin Duffy Symenow, PA-C 08/18/2020 Z79.01 custodial (current) use of antic oagulants Carin E Symenow, PA-C 08/12/2020 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 Carin Duffy Symenow, PA-C 08/12/2020 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 Carin Duffy Symenow, PA-C 07/23/2020 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 Maria Del Carmen Schroeder, PA 07/23/2020 Z79.01 custodial (current) use of antic oagulants Maria Del Carmen Schroeder, PA 07/08/2020 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 Carin Duffy Symenow, PA-C 07/08/2020 Z79.01 custodial (current) use of antic oagulants Carin Navasenow, PA-C 06/10/2020 I50.32 Chronic diastolic (congestive) h eart failure Carin E Kimw, PA-C 06/10/2020 I11.0 Hypertensive heart disease with heart failure Carin Tyrone Symromeow, PA-C 06/10/2020 R94.31 Abnormal electrocardiogram [ECG] [EKG] Carin Duffy Symromeow, PA-C 06/10/2020 I45.0 Right fascicular block Carintyrone herron, PA-C 06/10/2020 I49.5 Sick sinus syndrome Carin Duffy Kingston carpenter, PA-C 06/10/2020 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
--- OUTSIDE RECORDS SUMMARY | 2021-01-04 15:10 | CCD | Continuity of Care Document ---
Author Author Janie JAMES PA-C Organization Unknown Address [address] [place] [address], [place] [address] Phone [phone] Care Team Providers Care Lunch Cook Name Role Phone Courtney Guevara AUTM [phone] Hector Longo MD AUTM [phone] Kayleen Ruiz MD AUTM [phone] Anselmo Cooley MD AUTM [phone] Pb Amanda MD AUTM [phone] Marcus Zaldivar MD AUTM [phone] Rachael Ward AUTM [phone] Sanna Scanlon MD AUTM [phone] Problems Active Problems Provider Date Chronic diastolic [...] 2 by mouth twice a day Rachael Wrad FNP 020 Calcium Acetate (Phos Binder) 667mg Capsules 1 by mouth 3 times daily Isamar Ward FNP 09/12/2020 Torsemide 20mg Tablets 1 by mouth twice a day Courtney Guevara PA 09/01/2020 Vitamin D (Ergocalciferol) 1.25mg (91890 Ut) Capsules 1 by mouth every weekly Unknown 08/19 Vitamin B12 1000mcg Tablets ER 1 by mouth every day Unknown 09/02/2019 Vitamin Deficiency Injectable System-B12 1000mcg/ML Kit inject 1 kit once monthly Unknown Letrozole 2.5mg Tablets 1 by mouth once daily as directed Unknown 03/10/2019 Procrit [id number]/ML Solution every other week Anselmo Cooley MD [...] Date Facility Test Result H/L Range Note PT/Inr 11/08/[address] [address] [phone] Prothrombin Time 19.3 SEC High 8.9-13.3 Inr 1.7 Normal 0.0-3.6 1 PT/Inr [address] [address] [phone] Prothrombin Time 27.3 SEC High 8.9-13.3 Inr 2.4 Normal 0.0-3.6 2 PT/Inr 09/14/[address] [address] [phone] Prothrombin Time 25.9 SEC High 8.9-13.3 Inr 2.3 Normal 0.0-3.6 3 PT/Inr 09/06/2020 [facility] nter [phone] Prothrombin Time 23.1 seconds High 12.5-14.3 Inr 2.00 Normal 4 PT/Inr 09/01/[address] 8944925 [phone] Prothrombin Time 56.1 SEC High 8.9-13.3 Inr 5.0 Critical high 0.0-3.6 5 PT/Inr 08/17/[address] 2222943 [phone] Prothrombin Time 39.9 SEC High 8.9-13.3 Inr 3.5 Normal 0.0-3.6 6 PT/Inr 08/11/[address] 4629430 [phone] Prothrombin Time 66.0 SEC High 8.9-13.3 Inr 5.8 Critical high 0.0-3.6 7 PT/Inr 07/20/[address] 0035369 [phone] Prothrombin Time 24.5 SEC High 8.9-13.3 Inr 2.2 Normal 0.0-3.6 8 PT/Inr 07/05/[address] 6212258 [phone] Prothrombin Time 21.5 SEC High 8.9-13.3 Inr 1.9 Normal 0.0-3.6 9 PT/Inr 06/03/[address] 8648348 [phone] Prothrombin Time 34.4 SEC High 8.9-13.3 Inr 3.0 Normal 0.0-3.6 10 CBC without Differential 05/26/2020 [facility] - not inter faced (315)- - White Blood Count 5.9 4.0-10.9 Red Blood Count 3.43 Low 4.70-6.20 Platelets 235 150-450 Hemoglobin 10.5 Hematocrit 32.1 Renal Function Panel 05/26/2020 [facility] - not interface d (946)- - Albumin Serum/Plasma 3.9 High 3.5 BUN - Urea Nitrogen 80.7 High 5-21 Calcium 8.89 8.4-10.4 Chloride Serum/Plasma 103.2 98-110 Carbon Dioxide Ser/Plasm 21.5 20-32 Phosphorus 4.43 High -- Renal Profile 05/26/2020 [facility] (315)- - Glucose 157 High 70-100 Blood Urea Nitrogen 80.7 High 5-21 Creatinine 2.35 High 0.6-1.5 GFR (Calculated) 20 Sodium 135.4 Low 136-146 Potassium 5.30 3.5-5.3 Chloride 103.2 98-110 Carbon Dioxide 21.5 20-32 Calcium 8.89 8.4-10.4 Phosphorus 4.43 Albumin 3.9 3.5-4.7 CBC without Differential 05/26/2020 [facility] ([facility])- - White Blood Count 5.9 4.3-10.9 Red Blood Count 3.43 Low 4.70-6.20 Platelets 235 130-400 Hemoglobin 10.5 Low 13.0-17.0 Hematocrit 32.1 Low 39.0-50.0 1 Therapeutic Values of INR ar e [...] patient on stable oral anticoagulant therapy. 4 THERAPUTIC HUMAN INR VALUES INDICATIONS NORMAL RANGES PROPHYLAXIS/TREATMENT OF: VENOUS THROMBOSIS 2.0-3.0 PULMONARY EMBOLISM 2.0-3.0 PREVENTION OF SYSTEMIC EMBOLISM FROM: TISSUE HEART VALVES 2.0-3.0 ACUTE MYOCARDIAL INFARCTION 2.0-3.0 VALVULAR HEART DISEASE 2.0-3.0 ATRIAL FIBRILLATION 2.0-3.0 MECHANICAL VALVES(HIGH RISK) 2.5-3.5 RECURRENT MYOCARDIAL INFARCTION 2.5-3.5 5 Critical Results called to Britany Couch by [id number] at 1351 on 09/01/20 Therapeutic Values of INR are generally between 2.0-3.0 except for Prosthetic Valves (High Risk 2.5-3.5) The use of INR is restricted to patient on stable oral anticoagulant therapy. 6 Therapeutic Values of INR ar e generally between 2.0-3.0 except for Prosthetic Valves (High Risk 2.5-3.5) The use of INR is restricted to patient on stable oral anticoagulant therapy. 7 Critical Results given t o ED per Alina by [id number] at 2016 on 08/11/20 called to Rachelle(office)at 8:05 am 08/12/20 --- 08/12/20804 --- INR previously reported as: 5.8 CH [...] anticoagulant therapy. Procedures Date Code Description Status 10/13/2020 38450 Anticoagulant MGMT F or Patient Taking Warfarin, Inc Review & Intr Completed 09/14/2020 79360 Anticoagulant MGMT F or Patient Taking Warfarin, Inc Review & Intr Completed 09/07/2020 19455 Anticoagulant MGMT F or Patient Taking Warfarin, Inc Review & Intr Completed 09/02/2020 97658 Anticoagulant MGMT F or Patient Taking Warfarin, Inc Review & Intr Completed 08/18/2020 94994 Anticoagulant MGMT F or Patient Taking Warfarin, Inc Review & Intr Completed 08/12/2020 62663 Anticoagulant MGMT F or Patient Taking Warfarin, Inc Review & Intr Completed 07/23/2020 02083 Anticoagulant MGMT F or Patient Taking Warfarin, Inc Review & Intr Completed 07/08/2020 94632 Anticoagulant MGMT F or Patient Taking Warfarin, Inc Review & Intr Completed 06/10/2020 15360 ECG 12-Lead Completed 06/04/2020 35293 Anticoagulant MGMT F or Patient Taking Warfarin, [...] surve illance Assessments Date Code Description Provider 10/13/2020 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 Carin Alvarezw, PA-C 10/13/2020 Z79.01 halfway (current) use of antic oagulants Carin Navasenow, PA-C 09/14/2020 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 Carin Duffy Symenow, PA-C 09/14/2020 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 of antic oagulants Carin Navasenow, PA-C 09/13/2020 I50.32 Chronic diastolic (congestive) h eart failure Carin Alvarezw, PA-C 09/07/2020 Z79.01 halfway (current) use of antic oagulants Carin Duffy Symenow, PA-C 09/07/2020 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 Carin Duffy Symenow, PA-C 09/02/2020 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 Carin Tati Symenow, PA-C 09/02/2020 Z79.01 halfway (current) use of antic oagulants Carin Duffy Symenow, PA-C 08/18/2020 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 Carin Duffy Symenow, PA-C 08/18/2020 Z79.01 halfway (current) use of antic oagulants Carin Tati Alvarezw, PA-C 08/12/2020 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 Carin Duffy Kimw, PA-C 08/12/2020 Z79.01 halfway (current) use of antic oagulants Carin Duffy Rachel, PA-C 07/23/2020 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 Maria Del Carmen Schroeder, PA 07/23/2020 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 of antic oagulants Maria Del Carmen Schroeder, PA 07/08/2020 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 Carin Duffy Kimw, PA-C 07/08/2020 Z79.01 halfway (current) use of antic oagulants Carin Alvarezw, PA-C 06/10/2020 I50.32 Chronic diastolic (congestive) h eart failure Carin Tati James, PA-C 06/10/2020 I11.0 Hypertensive heart disease with heart failure Carin James, PA-C 06/10/2020 R94.31 Abnormal electrocardiogram [ECG] [EKG] Carin Tati Alvarezw, PA-C 06/10/2020 I45.0 Right fascicular block Carin Tati herron, PA-C 06/10/2020 I49.5 Sick sinus syndrome Carin Duffy Eloisenohemy pauline, PA-C 06/10/2020 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
--- OUTSIDE RECORDS SUMMARY | 2021-01-04 15:10 | CCD | Continuity of Care Document ---
Author Author Janie LEMUS I PA Organization Unknown Address [address] [place] [address], [facility] [place] [address] Phone [phone] Care Team Providers Care Electrostatic Powder Coating Technician Name Role Phone Courtney Guevara AUTM [phone] Hector Longo MD AUTM [phone] Kayleen Ruiz MD AUTM [phone] Anselmo Cooley MD AUTM [phone] Pb Amanda MD AUTM [phone] Marcus Zaldivar MD AUTM [phone] Rachael Ward AUTM [phone] Sanna Scanlon MD AUTM [phone] Problems Active Problems Provider Date Chronic diastolic heart failure Carin Ramos PA-C Onset: 04/01/2012 Benign hypertensive heart disease with congestive card iac failure Carin Ramos PA-C Onset: 04/01/2012 Electrocardiogram abnormal PRINCE Mock-C Onset: 04/01 Rheumatic aortic stenosis with regurgitation PRINCE Mock-C Onset: 04/01/2012 Mitral insufficiency and aortic stenosis JERMAIN Mock C Onset: 04/01/2012 Heart valve replacement JERMAIN MockC Onset: 04/01/20 12 Pure hypercholesterolemia PRINCE Mock-C Onset: 2011 Obesity Carin Ramos PA-C Onset: [...] Guevara PA 09/01/2020 Vitamin D (Ergocalciferol) 1.25mg (77088 Ut) Capsules 1 by mouth every weekly Unknown 08/19 Vitamin B12 1000mcg Tablets ER 1 by mouth every day Unknown 09/02/2019 Vitamin Deficiency Injectable System-B12 1000mcg/ML Kit inject 1 kit once monthly Unknown Letrozole 2.5mg Tablets 1 by mouth once daily as directed Unknown 03/10/2019 Procrit [id number]/[id number] Solution every other week Anselmo Cooley MD [...] Test Result H/L Range Note PT/Inr 11/08/[address] [address] [phone] Prothrombin Time 19.3 SEC High 8.9-13.3 Inr 1.7 Normal 0.0-3.6 1 PT/Inr [address] [address] [phone] Prothrombin Time 27.3 SEC High 8.9-13.3 Inr 2.4 Normal 0.0-3.6 2 PT/Inr 09/14/[address] [address] [phone] Prothrombin Time 25.9 SEC High 8.9-13.3 Inr 2.3 Normal 0.0-3.6 3 PT/Inr 09/06/2020 [facility] nter [phone] Prothrombin Time 23.1 seconds High 12.5-14.3 Inr 2.00 Normal 4 PT/Inr 09/01/[address] 1448050 ([phone] Prothrombin Time 56.1 SEC High 8.9-13.3 Inr 5.0 Critical high 0.0-3.6 5 PT/Inr 08/17/[address] 0933842 ([phone] Prothrombin Time 39.9 SEC High 8.9-13.3 Inr 3.5 Normal 0.0-3.6 6 PT/Inr 08/11/[address] 8994832 [phone] Prothrombin Time 66.0 SEC High 8.9-13.3 Inr 5.8 Critical high 0.0-3.6 7 PT/Inr 07/20/[address] 3505256 ([phone] Prothrombin Time 24.5 SEC High 8.9-13.3 Inr 2.2 Normal 0.0-3.6 8 PT/Inr 07/05/[address] 4959100 [phone] Prothrombin Time 21.5 SEC High 8.9-13.3 Inr 1.9 Normal 0.0-3.6 9 PT/Inr 06/03/[address] 3184746 [phone] Prothrombin Time 34.4 SEC High 8.9-13.3 Inr 3.0 Normal 0.0-3.6 10 CBC without Differential 05/26/2020 [facility] - not inter faced (315)- - White Blood Count 5.9 4.0-10.9 Red Blood Count 3.43 Low 4.70-6.20 Platelets 235 150-450 Hemoglobin 10.5 Hematocrit 32.1 Renal Function Panel 05/26/2020 [facility] - not interface d (315)- - Albumin Serum/Plasma 3.9 High 3.5 BUN [...] anticoagulant therapy. Procedures Date Code Description Status 11/09/2020 79304 Anticoagulant MGMT F or Patient Taking Warfarin, Inc Review & Intr Completed 10/13/2020 97919 Anticoagulant MGMT F or Patient Taking Warfarin, Inc Review & Intr Completed 09/14/2020 30583 Anticoagulant MGMT F or Patient Taking Warfarin, Inc Review & Intr Completed 09/07/2020 27102 Anticoagulant MGMT F or Patient Taking Warfarin, Inc Review & Intr Completed 09/02/2020 59060 Anticoagulant MGMT F or Patient Taking Warfarin, Inc Review & Intr Completed 08/18/2020 51285 Anticoagulant MGMT F or Patient Taking Warfarin, Inc Review & Intr Completed 08/12/2020 01284 Anticoagulant MGMT F or Patient Taking Warfarin, Inc Review & Intr Completed 07/23/2020 36820 Anticoagulant MGMT F or Patient Taking Warfarin, Inc Review & Intr Completed 07/08/2020 11646 Anticoagulant MGMT F or Patient Taking Warfarin, Inc Review & Intr Completed 06/10/2020 27466 ECG 12-Lead Completed 06/04/2020 21084 Anticoagulant MGMT F or Patient Taking Warfarin, Inc Review & Intr Completed Medical Devices Description No Information Available Encounters Type Date Location Provider Dx Diagnosis Office Visit 09/13/2020 9:15a Main Office Carin Ramos, PA-C I50.3 2 Chronic diastolic (congestive) heart failure Office Visit 06/10/2020 9:15a Main Office Carin Ramos, PA-C I50.3 2 Chronic diastolic (congestive) heart [...] curtis ve Carin Alvarezw, PA-C 10/13/2020 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.01 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 (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) use of antic oagulants Carin Navasenow, PA-C 09/14/2020 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 Carin Alvarezw, PA-C 09/14/2020 Z79.01 skilled nursing (current) use of antic oagulants Carin Navasenow, PA-C 09/13/2020 I50.32 Chronic diastolic (congestive) h eart failure Carin Alvarezw, PA-C 09/07/2020 Z79.01 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 (current) use of antic oagulants Carin Navasenow, PA-C 09/07/2020 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 Carin Alvarezw, PA-C 09/02/2020 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 Carin Navasenow, PA-C 09/02/2020 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.01 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 (current) use of antic oagulants Carin Navasenow, PA-C 08/18/2020 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 Carin Alvarezw, PA-C 08/18/2020 Z79.01 skilled nursing (current) use of antic oagulants Carin Navasenow, PA-C 08/12/2020 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 Carin Duffy Symenow, PA-C 08/12/2020 Z79.01 skilled nursing (current) use of antic oagulants Carin Navasenow, PA-C 07/23/2020 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 Maria Del Carmen Schroeder, PA 07/23/2020 Z79.01 skilled nursing (current) use of antic oagulants Maria Del Carmen Schroeder, PA 07/08/2020 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 Carin Navasenow, PA-C 07/08/2020 Z79.01 skilled nursing (current) use of antic oagulants Carintyrone Navasenow, PA-C 06/10/2020 I50.32 Chronic diastolic (congestive) h eart failure Carin Navasromeow, PA-C 06/10/2020 I11.0 Hypertensive heart disease with heart failure Carin Navasromeow, PA-C 06/10/2020 R94.31 Abnormal electrocardiogram [ECG] [EKG] Carin Alvarezw, PA-C 06/10/2020 I45.0 Right fascicular block Carin Duffy Selvin herron, PA-C 06/10/2020 I49.5 Sick sinus syndrome Carin Onofre pauline, PA-C 06/10/2020 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
--- OUTSIDE RECORDS SUMMARY | 2021-01-04 15:10 | CCD | Continuity of Care Document ---
Author Author Janie JAMES PA-C Organization Unknown Address [address] [place] [address], [facility] [place] [address] Phone [phone] Care Team Providers Care Learning Center Coordinator Name Role Phone Courtney Guevara AUTM [phone] Hector Longo MD AUTM [phone] Kayleen Ruiz MD AUTM [phone] Anselmo Cooley MD AUTM [phone] Pb Amanda MD AUTM [phone] Marcus Zaldivar MD AUTM [phone] Rachael Ward AUTM [phone] Sanna Scanlon MD AUTM [phone] Problems Active Problems Provider Date Chronic diastolic [...] Guevara PA 09/01/2020 Vitamin D (Ergocalciferol) 1.25mg (79734 Ut) Capsules 1 by mouth every weekly Unknown 08/19 Vitamin B12 1000mcg Tablets ER 1 by mouth every day Unknown 09/02/2019 Vitamin Deficiency Injectable System-B12 1000mcg/ML Kit inject 1 kit once monthly Unknown Letrozole 2.5mg Tablets 1 by mouth once daily as directed Unknown 03/10/2019 Procrit [id number] Solution every other week Anselmo Cooley MD [...] Facility Test Result H/L Range Note PT/Inr [address] [address] [phone] Prothrombin Time 27.3 SEC High 8.9-13.3 Inr 2.4 Normal 0.0-3.6 1 PT/Inr 09/14/[address] [address] [phone] Prothrombin Time 25.9 SEC High 8.9-13.3 Inr 2.3 Normal 0.0-3.6 2 PT/Inr 09/06/2020 [facility] nter [phone] Prothrombin Time 23.1 seconds High 12.5-14.3 Inr 2.00 Normal 3 PT/Inr 09/01/[address] [phone] [phone] Prothrombin Time 56.1 SEC High 8.9-13.3 Inr 5.0 Critical high 0.0-3.6 4 PT/Inr 08/17/[address] [phone] Prothrombin Time 39.9 SEC High 8.9-13.3 Inr 3.5 Normal 0.0-3.6 5 PT/Inr 08/11/[address] [id number] [phone] Prothrombin Time 66.0 SEC High 8.9-13.3 Inr 5.8 Critical high 0.0-3.6 6 PT/Inr 07/20/[address] [id number] [phone] Prothrombin Time 24.5 SEC High 8.9-13.3 Inr 2.2 Normal 0.0-3.6 7 PT/Inr 07/05/[address] [phone] Prothrombin Time 21.5 SEC High 8.9-13.3 Inr 1.9 Normal 0.0-3.6 8 PT/Inr 06/03/[address] 8049038 [phone] Prothrombin Time 34.4 SEC High 8.9-13.3 Inr 3.0 Normal 0.0-3.6 9 CBC without Differential 05/26/2020 [facility] - not inter faced (855)- - White Blood Count 5.9 4.0-10.9 Red Blood Count 3.43 Low 4.70-6.20 Platelets 235 150-450 Hemoglobin 10.5 Hematocrit 32.1 Renal Function Panel 05/26/2020 [facility] - not interface d (349)- - Albumin Serum/Plasma 3.9 High 3.5 BUN - Urea Nitrogen 80.7 High 5-21 Calcium 8.89 8.4-10.4 Chloride Serum/Plasma 103.2 98-110 Carbon Dioxide Ser/Plasm 21.5 20-32 Phosphorus 4.43 High -- Renal Profile 05/26/2020 [facility] (212)- - Glucose 157 High 70-100 Blood Urea [...] 10.5 Low 13.0-17.0 Hematocrit 32.1 Low 39.0-50.0 PT/Inr 05/05/[address] [address] [phone] Prothrombin Time 34.4 SEC High 8.9-13.3 Inr 3.0 Normal 0.0-3.6 10 1 Therapeutic Values of INR ar e generally between 2.0-3.0 except for Prosthetic Valves (High Risk 2.5-3.5) The use of INR is restricted to patient on stable oral anticoagulant therapy. 2 Therapeutic Values of INR ar e generally between 2.0-3.0 except for Prosthetic Valves (High Risk 2.5-3.5) The use of INR is restricted to patient on stable oral anticoagulant therapy. 3 THERAPUTIC HUMAN INR VALUES INDICATIONS NORMAL RANGES PROPHYLAXIS/TREATMENT OF: VENOUS THROMBOSIS 2.0-3.0 PULMONARY EMBOLISM 2.0-3.0 PREVENTION OF SYSTEMIC EMBOLISM FROM: TISSUE HEART VALVES 2.0-3.0 ACUTE MYOCARDIAL INFARCTION 2.0-3.0 VALVULAR HEART DISEASE 2.0-3.0 ATRIAL FIBRILLATION 2.0-3.0 MECHANICAL VALVES(HIGH RISK) 2.5-3.5 RECURRENT MYOCARDIAL INFARCTION 2.5-3.5 4 Critical Results called to Britany Couch by [...] patient on stable oral anticoagulant therapy. 6 Critical Results given t o ED per [...] anticoagulant therapy. Procedures Date Code Description Status 09/14/2020 75192 Anticoagulant MGMT F or Patient Taking Warfarin, Inc Review & Intr Completed 09/07/2020 81158 Anticoagulant MGMT F or Patient Taking Warfarin, Inc Review & Intr Completed 09/02/2020 80512 Anticoagulant MGMT F or Patient Taking Warfarin, Inc Review & Intr Completed 08/18/2020 30063 Anticoagulant MGMT F or Patient Taking Warfarin, Inc Review & Intr Completed 08/12/2020 62056 Anticoagulant MGMT F or Patient Taking Warfarin, Inc Review & Intr Completed 07/23/2020 12932 Anticoagulant MGMT F or Patient Taking Warfarin, Inc Review & Intr Completed 07/08/2020 55605 Anticoagulant MGMT F or Patient Taking Warfarin, Inc Review & Intr Completed 06/10/2020 41802 ECG 12-Lead Completed 06/04/2020 08189 Anticoagulant MGMT F or Patient Taking Warfarin, Inc Review & Intr Completed 05/06/2020 00406 Anticoagulant MGMT F or Patient Taking Warfarin, Inc Review & Intr Completed Medical Devices Description No Information Available Encounters Type Date Location Provider Dx Diagnosis Office Visit 09/13/2020 9:15a Main Office Carin James PA-C I50.3 2 Chronic diastolic (congestive) heart failure Office Visit 06/10/2020 9:15a Main Office Carin James PA-C I50.3 [...] surve illance Assessments Date Code Description Provider 09/14/2020 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 Carin James, PA-C 09/14/2020 Z79.01 longterm (current) use of antic oagulants Carin Alvarezw, PA-C 09/13/2020 I50.32 Chronic diastolic (congestive) h eart failure Carin James, PA-C 09/07/2020 Z79.01 long term (current) use of antic oagulants Carin Alvarezw, PA-C 09/07/2020 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 Carin James, PA-C 09/02/2020 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 Carin Navasenow, PA-C 09/02/2020 Z79.01 longterm (current) use of antic oagulants Cairn Navasenow, PA-C 08/18/2020 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 Carin Alvarezw, PA-C 08/18/2020 Z79.01 longterm (current) use of antic oagulants Carin Navasenow, PA-C 08/12/2020 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 Carin Alvarezw, PA-C 08/12/2020 Z79.01 longterm (current) use of antic oagulants Carin James, PA-C 07/23/2020 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 Maria Del Carmen Schroeder, PA 07/23/2020 Z79.01 longterm (current) use of antic oagulants Maria Del Carmen Schroeder, PA 07/08/2020 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 Carin Duffy Rachel, PA-C 07/08/2020 Z79.01 long term (current) use of antic oagulants Carin Alvarezw, PA-C 06/10/2020 I50.32 Chronic diastolic (congestive) h eart failure Carin E Kimw, PA-C 06/10/2020 I11.0 Hypertensive heart disease with heart failure Carin James, PA-C 06/10/2020 R94.31 Abnormal electrocardiogram [ECG] [EKG] Carin Tyrone James, PA-C 06/10/2020 I45.0 Right fascicular block Carin Tyrone herron, PA-C 06/10/2020 I49.5 Sick sinus syndrome Carin Duffy [place] carpenter, PA-C 06/10/2020 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 Carin Tyrone Kimw, PA-C 06/10/2020 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 Carin Tyrone Kimw, PA-C 06/10/2020 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
--- OUTSIDE RECORDS SUMMARY | 2021-01-04 15:10 | CCD | Continuity of Care Document ---
Author Author Janie JAMES PA-C Organization Unknown Address [address] [place] [address], [facility] [place] [address] Phone [phone] Care Team Providers Care International Trade Analyst Name Role Phone Courtney Guevara AUTM [phone] Hector Longo MD AUTM [phone] Kayleen Ruiz MD AUTM [phone] Anselmo Cooley MD AUTM [phone] Pb Amanda MD AUTM [phone] Marcus Zaldivar MD AUTM [phone] Rachael Ward AUTM [phone] Sanna Scanlon MD AUTM [phone] Problems Active Problems Provider Date Chronic diastolic [...] Guevara PA 09/01/2020 Vitamin D (Ergocalciferol) 1.25mg (78702 Ut) Capsules 1 by mouth every weekly Unknown 08/19 Vitamin B12 1000mcg Tablets ER 1 by mouth every day Unknown 09/02/2019 Vitamin Deficiency Injectable System-B12 1000mcg/ML Kit inject 1 kit once monthly Unknown Letrozole 2.5mg Tablets 1 by mouth once daily as directed Unknown 03/10/2019 Procrit [id number]/ML Solution every other week Anselmo Cooley MD [...] Result H/L Range Note Prothrombin Time 11/17/[address] [address] [phone] Prothrombin Time 39.0 SEC High 8.9-13.3 Inr 3.5 Normal 0.0-3.6 1 PT/Inr 11/08/[address] [address] [phone] Prothrombin Time 19.3 SEC High 8.9-13.3 Inr 1.7 Normal 0.0-3.6 2 PT/Inr [address] [address] [phone] Prothrombin Time 27.3 SEC High 8.9-13.3 Inr 2.4 Normal 0.0-3.6 3 PT/Inr 09/14/[address] [address] [phone] Prothrombin Time 25.9 SEC High 8.9-13.3 Inr 2.3 Normal 0.0-3.6 4 PT/Inr 09/06/2020 [facility] nter [phone] Prothrombin Time 23.1 seconds High 12.5-14.3 Inr 2.00 Normal 5 PT/Inr 09/01/[address] [address] [phone] Prothrombin Time 56.1 SEC High 8.9-13.3 Inr 5.0 Critical high 0.0-3.6 6 PT/Inr 08/17/[address] [address] [phone] Prothrombin Time 39.9 SEC High 8.9-13.3 Inr 3.5 Normal 0.0-3.6 7 PT/Inr 08/11/[address] [address] [phone] Prothrombin Time 66.0 SEC High 8.9-13.3 Inr 5.8 Critical high 0.0-3.6 8 PT/Inr 07/20/[address] [address] [phone] Prothrombin Time 24.5 SEC High 8.9-13.3 Inr 2.2 Normal 0.0-3.6 9 PT/Inr 07/05/[address] [address] [phone] Prothrombin Time 21.5 SEC High 8.9-13.3 Inr 1.9 Normal 0.0-3.6 10 PT/Inr 06/03/[address] [address] [phone] Prothrombin Time 34.4 SEC High 8.9-13.3 Inr 3.0 Normal 0.0-3.6 11 CBC without Differential 05/26/2020 [facility] - not inter faced (315)- - White Blood Count 5.9 4.0-10.9 Red Blood Count 3.43 Low 4.70-6.20 Platelets 235 150-450 Hemoglobin 10.5 Hematocrit 32.1 Renal Function Panel 05/26/2020 [facility] - not interface d (315)- - Albumin [...] 3.9 3.5-4.7 CBC without Differential 05/26/2020 [facility] (315)- - White Blood Count 5.9 [...] therapy. 8 Critical Results given t o ED per Alina by [id number] at 2017 on 08/11/20 called to Rachelle(office)at 8:05 am 08/12/20 --- 08/12/20 08 --- INR previously reported as: 5.8 CH Critical Results given to ED per Alina by [id number] at 2017 on 08/11/20 Therapeutic Values of [...] therapy. Procedures Date Code Description Status 11/09/2020 65451 Anticoagulant MGMT F or Patient Taking Warfarin, Inc Review & Intr Completed 10/13/2020 23014 Anticoagulant MGMT F or Patient Taking Warfarin, Inc Review & Intr Completed 09/14/2020 93370 Anticoagulant MGMT F or Patient Taking Warfarin, Inc Review & Intr Completed 09/07/2020 56184 Anticoagulant MGMT F or Patient Taking Warfarin, Inc Review & Intr Completed 09/02/2020 27830 Anticoagulant MGMT F or Patient Taking Warfarin, Inc Review & Intr Completed 08/18/2020 84546 Anticoagulant MGMT F or Patient Taking Warfarin, Inc Review & Intr Completed 08/12/2020 84581 Anticoagulant MGMT F or Patient Taking Warfarin, Inc Review & Intr Completed 07/23/2020 72236 Anticoagulant MGMT F or Patient Taking Warfarin, Inc Review & Intr Completed 07/08/2020 37801 Anticoagulant MGMT F or Patient Taking Warfarin, Inc Review & Intr Completed 06/10/2020 67310 ECG 12-Lead Completed 06/04/2020 12338 Anticoagulant MGMT F or Patient Taking Warfarin, [...] surve illance Assessments Date Code Description Provider 11/09/2020 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 PRINCE Mcgrath 11/09/2020 Z79.01 manager terminal (current) use of antic vaibhavgulanPRINCE Gottlieb 10/13/2020 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 Carin James PA-C 10/13/2020 Z79.01 longterm (current) use of antic vaibhavgulanlily James PA-C 09/14/2020 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 Carin James PA-C 09/14/2020 Z79.01 manager terminal (current) use of antic vaibhavgulanlily James PA-C 09/13/2020 I50.32 Chronic diastolic (congestive) h eart failure Carin Duffy Symenow, PA-C 09/07/2020 Z79.01 manager terminal (current) use of antic oagulants Carin E Symenow, PA-C 09/07/2020 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 Carin E Symenow, PA-C 09/02/2020 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 Carin Duffy Symenow, PA-C 09/02/2020 Z79.01 manager terminal (current) use of antic oagulants Carin E Symenow, PA-C 08/18/2020 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 Carin E Symenow, PA-C 08/18/2020 Z79.01 manager terminal (current) use of antic oagulants Carin Tyrone Symenow, PA-C 08/12/2020 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 Carin E Symenow, PA-C 08/12/2020 Z79.01 manager terminal (current) use of antic oagulants Carin Tyrone Eloiseenow, PA-C 07/23/2020 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 Maria Del Carmen Schroeder, PA 07/23/2020 Z79.01 longterm (current) use of antic oagulants Maria Del Carmen Schroeder, PA 07/08/2020 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 Carin E Symenow, PA-C 07/08/2020 Z79.01 longterm (current) use of antic oagulants Carin Duffy Symenow, PA-C 06/10/2020 I50.32 Chronic diastolic (congestive) h eart failure Carin Tyrone Symromeow, PA-C 06/10/2020 I11.0 Hypertensive heart disease with heart failure Carin Duffy Symenow, PA-C 06/10/2020 R94.31 Abnormal electrocardiogram [ECG] [EKG] Carin Alvarezw, PA-C 06/10/2020 I45.0 Right fascicular block Carin herron, PA-C 06/10/2020 I49.5 Sick sinus syndrome Carin carpenter, PA-C 06/10/2020 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 Carin James PA-C 06/10/2020 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
--- OUTSIDE RECORDS SUMMARY | 2021-01-04 15:10 | CCD | Continuity of Care Document ---
Author Author Janie JAMES PA-C Organization Unknown Address [address] [place] [address], [facility] [place] [address] Phone [phone] Care Team Providers Care Hot Dip Plating Supervisor Name Role Phone Courtney Guevara AUTM [phone] Hector Longo MD AUTM [phone] Kayleen Ruiz MD AUTM [phone] Anselmo Cooley MD AUTM [phone] Pb Amanda MD AUTM [phone] Marcus Zaldivar MD AUTM [phone] Rachael Ward AUTM [phone] Sanna Scanlon MD AUTM [phone] Problems Active Problems Provider Date Chronic diastolic [...] Guevara PA 09/01/2020 Vitamin D (Ergocalciferol) 1.25mg (95600 Ut) Capsules 1 by mouth every weekly Unknown 08/19 Vitamin B12 1000mcg Tablets ER 1 by mouth every day Unknown 09/02/2019 Vitamin Deficiency Injectable System-B12 1000mcg/ML Kit inject 1 kit once monthly Unknown Letrozole 2.5mg Tablets 1 by mouth once daily as directed Unknown 03/10/2019 Procrit 32783Inmz/ML Solution every other week Aneslmo Cooley MD 018 Novolog Mix 70/30 Prefilled [...] Result H/L Range Note Prothrombin Time 11/17/[address] [address] [phone] Prothrombin Time 39.0 SEC High 8.9-13.3 Inr 3.5 Normal 0.0-3.6 1 PT/Inr 11/08/[address] [address] [phone] Prothrombin Time 19.3 SEC High 8.9-13.3 Inr 1.7 Normal 0.0-3.6 2 PT/Inr [address] [address] [phone] Prothrombin Time 27.3 SEC High 8.9-13.3 Inr 2.4 Normal 0.0-3.6 3 PT/Inr 09/14/[address] [address] [phone] Prothrombin Time 25.9 SEC High 8.9-13.3 Inr 2.3 Normal 0.0-3.6 4 PT/Inr 09/06/2020 [facility] nter [phone] Prothrombin Time 23.1 seconds High 12.5-14.3 Inr 2.00 Normal 5 PT/Inr 09/01/[address] [address] [phone] Prothrombin Time 56.1 SEC High 8.9-13.3 Inr 5.0 Critical high 0.0-3.6 6 PT/Inr 08/17/[address] [address] [phone] Prothrombin Time 39.9 SEC High 8.9-13.3 Inr 3.5 Normal 0.0-3.6 7 PT/Inr 08/11/[address] [address] [phone] Prothrombin Time 66.0 SEC High 8.9-13.3 Inr 5.8 Critical high 0.0-3.6 8 PT/Inr 07/20/[address] [address] [phone] Prothrombin Time 24.5 SEC High 8.9-13.3 Inr 2.2 Normal 0.0-3.6 9 PT/Inr 07/05/[address] [address] [phone] Prothrombin Time 21.5 SEC High 8.9-13.3 Inr 1.9 Normal 0.0-3.6 10 PT/Inr 06/03/[address] [address] [phone] Prothrombin Time 34.4 SEC High 8.9-13.3 Inr 3.0 Normal 0.0-3.6 11 CBC without Differential 05/26/2020 [facility] - not inter faced (315)- - White Blood Count 5.9 4.0-10.9 Red Blood Count 3.43 Low 4.70-6.20 Platelets 235 150-450 Hemoglobin 10.5 Hematocrit 32.1 Renal Function Panel 05/26/2020 [facility] - not interface d (315)- - [...] given t o ED per Alina by [id number] at 2017 on 08/11/20 called to Rachelle(office)at 8:05 am 08/12/20 --- 08/12/20 08 --- INR previously reported as: 5.8 CH Critical Results given to ED per Alina by [id number] at 2017 on 08/11/20 Therapeutic Values of [...] therapy. Procedures Date Code Description Status 11/09/2020 71264 Anticoagulant MGMT F or Patient Taking Warfarin, Inc Review & Intr Completed 10/13/2020 51430 Anticoagulant MGMT F or Patient Taking Warfarin, Inc Review & Intr Completed 09/14/2020 52625 Anticoagulant MGMT F or Patient Taking Warfarin, Inc Review & Intr Completed 09/07/2020 76186 Anticoagulant MGMT F or Patient Taking Warfarin, Inc Review & Intr Completed 09/02/2020 08943 Anticoagulant MGMT F or Patient Taking Warfarin, Inc Review & Intr Completed 08/18/2020 83165 Anticoagulant MGMT F or Patient Taking Warfarin, Inc Review & Intr Completed 08/12/2020 24866 Anticoagulant MGMT F or Patient Taking Warfarin, Inc Review & Intr Completed 07/23/2020 62455 Anticoagulant MGMT F or Patient Taking Warfarin, Inc Review & Intr Completed 07/08/2020 20252 Anticoagulant MGMT F or Patient Taking Warfarin, Inc Review & Intr Completed 06/10/2020 01090 ECG 12-Lead Completed 06/04/2020 87054 Anticoagulant MGMT F or Patient Taking Warfarin, [...] heart curtis ve PRINCE Mcgrath 11/09/2020 Z79.01 rn long term care (current) use of antic vaibhavgulanPRINCE Gottlieb 10/13/2020 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 Carin James PA-C 10/13/2020 Z79.01 prison (current) use of antic vaibhavgulanlily James PA-C 09/14/2020 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 Carin James PA-C 09/14/2020 Z79.01 rn long term care (current) use of antic vaibhavgulanlily James PA-C 09/13/2020 I50.32 Chronic diastolic (congestive) h eart failure Carin Duffy Symenow, PA-C 09/07/2020 Z79.01 rn long term care (current) use of antic oagulants Carin E Symenow, PA-C 09/07/2020 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 Carin E Symenow, PA-C 09/02/2020 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 Carin Duffy Symenow, PA-C 09/02/2020 Z79.01 rn long term care (current) use of antic oagulants Carin E Symenow, PA-C 08/18/2020 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 Carin E Symenow, PA-C 08/18/2020 Z79.01 rn long term care (current) use of antic oagulants Carin Tyrone Symenow, PA-C 08/12/2020 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
--- OUTSIDE RECORDS SUMMARY | 2021-01-04 15:10 | CCD | Continuity of Care Document ---
Author Author Janie JAMES PA-C Organization Unknown Address [address] [place] [address], [facility] [place] [address] Phone [phone] Care Team Providers Care [employer]ing [employer] Operator Name Role Phone Courtney Guevara AUTM [phone] Hector Longo MD AUTM [phone] Kayleen Ruiz MD AUTM [phone] Anselmo Cooley MD AUTM [phone] Amanda MD AUTM [phone] Marcus Zaldivar MD AUTM [phone] Rachael Ward AUTM [phone] Sanna Scanlon MD AUTM [phone] Problems Active Problems Provider Date Chronic diastolic [...] Guevara PA 09/01/2020 Vitamin D (Ergocalciferol) 1.25mg (05767 Ut) Capsules 1 by mouth every weekly Unknown 08/19 Vitamin B12 1000mcg Tablets ER 1 by mouth every day Unknown 09/02/2019 Vitamin Deficiency Injectable System-B12 1000mcg/ML Kit inject 1 kit once monthly Unknown Letrozole 2.5mg Tablets 1 by mouth once daily as directed Unknown 03/10/2019 Procrit [id number] Solution every other week Anselmo Cooley MD [...] Test Result H/L Range Note PT/Inr [address] [address] [phone] Prothrombin Time 27.3 SEC High 8.9-13.3 Inr 2.4 Normal 0.0-3.6 1 PT/Inr 09/14/[address] [address] [phone] Prothrombin Time 25.9 SEC High 8.9-13.3 Inr 2.3 Normal 0.0-3.6 2 PT/Inr 09/06/2020 [facility] [phone] Prothrombin Time 23.1 seconds High 12.5-14.3 Inr 2.00 Normal 3 PT/Inr 09/01/[address] [id number] [phone] Prothrombin Time 56.1 SEC High 8.9-13.3 Inr 5.0 Critical high 0.0-3.6 4 PT/Inr 08/17/[address] [id number] [phone] Prothrombin Time 39.9 SEC High 8.9-13.3 Inr 3.5 Normal 0.0-3.6 5 PT/Inr 08/11/[address] [id number] [phone] Prothrombin Time 66.0 SEC High 8.9-13.3 Inr 5.8 Critical high 0.0-3.6 6 PT/Inr 07/20/[address] [id number] [phone] Prothrombin Time 24.5 SEC High 8.9-13.3 Inr 2.2 Normal 0.0-3.6 7 PT/Inr 07/05/[address] [id number] [phone] Prothrombin Time 21.5 SEC High 8.9-13.3 Inr 1.9 Normal 0.0-3.6 8 PT/Inr 06/03/[address] [id number] [phone] Prothrombin Time 34.4 SEC High 8.9-13.3 Inr 3.0 Normal 0.0-3.6 9 CBC without Differential 05/26/2020 [facility] - not inter faced (204)- - White Blood Count 5.9 4.0-10.9 Red Blood Count 3.43 Low 4.70-6.20 Platelets 235 150-450 Hemoglobin 10.5 Hematocrit 32.1 Renal Function Panel 05/26/2020 [facility] - not interface d (352)- - Albumin Serum/Plasma 3.9 High 3.5 BUN - Urea Nitrogen 80.7 High 5-21 Calcium 8.89 8.4-10.4 Chloride Serum/Plasma 103.2 98-110 Carbon Dioxide Ser/Plasm 21.5 20-32 Phosphorus 4.43 High -- Renal Profile 05/26/2020 [facility] (778)- - Glucose 157 High 70-100 Blood Urea [...] 13.0-17.0 Hematocrit 32.1 Low 39.0-50.0 PT/Inr 05/05/[address] [address] [phone] Prothrombin Time 34.4 SEC High 8.9-13.3 Inr [...] therapy. Procedures Date Code Description Status 10/13/2020 91760 Anticoagulant MGMT F or Patient Taking Warfarin, Inc Review & Intr Completed 09/14/2020 16302 Anticoagulant MGMT F or Patient Taking Warfarin, Inc Review & Intr Completed 09/07/2020 34408 Anticoagulant MGMT F or Patient Taking Warfarin, Inc Review & Intr Completed 09/02/2020 72352 Anticoagulant MGMT F or Patient Taking Warfarin, Inc Review & Intr Completed 08/18/2020 57458 Anticoagulant MGMT F or Patient Taking Warfarin, Inc Review & Intr Completed 08/12/2020 76752 Anticoagulant MGMT F or Patient Taking Warfarin, Inc Review & Intr Completed 07/23/2020 23752 Anticoagulant MGMT F or Patient Taking Warfarin, Inc Review & Intr Completed 07/08/2020 39848 Anticoagulant MGMT F or Patient Taking Warfarin, Inc Review & Intr Completed 06/10/2020 56188 ECG 12-Lead Completed 06/04/2020 71396 Anticoagulant MGMT F or Patient Taking Warfarin, Inc Review & Intr Completed 05/06/2020 53624 Anticoagulant MGMT F or Patient Taking Warfarin, [...] prosthetic heart curtis ve Carin James, PA-C 10/13/2020 Z79.01 senior care (current) use of antic oagulants Carin James, PA-C 09/14/2020 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 Carin James, PA-C 09/14/2020 Z79.01 long term acute care registered nurse (current) use of antic oagulants Carin James, PA-C 09/13/2020 I50.32 Chronic diastolic (congestive) h eart failure Carin James, PA-C 09/07/2020 Z79.01 long term acute care registered nurse (current) use of antic oagulants Carin Navasenow, PA-C 09/07/2020 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 Carin James, PA-C 09/02/2020 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 Carin Alvarezw, PA-C 09/02/2020 Z79.01 long term acute care registered nurse (current) use of antic oagulants Carin Alvarezw, PA-C 08/18/2020 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 Carin James, PA-C 08/18/2020 Z79.01 senior care (current) use of antic oagulants Carin Alvarezw, PA-C 08/12/2020 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 Carin Alvarezw, PA-C 08/12/2020 Z79.01 long term acute care registered nurse (current) use of antic oagulants Carin Alvarzew, PA-C 07/23/2020 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 Maria Del Carmen Schroeder, PA 07/23/2020 Z79.01 long term acute care registered nurse (current) use of antic oagulants Maria Del Carmen Schroeder, PA 07/08/2020 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 Carin Navasromeow, PA-C 07/08/2020 Z79.01 senior care (current) use of antic oagulants Carin Alvarezw, PA-C 06/10/2020 I50.32 Chronic diastolic (congestive) h eart failure Carin Navasromeow, PA-C 06/10/2020 I11.0 Hypertensive heart disease with heart failure Carin Navasromeow, PA-C 06/10/2020 R94.31 Abnormal electrocardiogram [ECG] [EKG] Carin Alvarezw, PA-C 06/10/2020 I45.0 Right fascicular block Carin Duffy Selvin gopal, PA-C 06/10/2020 I49.5 Sick sinus syndrome Carin Onofre pauline, PA-C 06/10/2020 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 Carin Duffy Symenow, PA-C 06/10/2020 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 Carin Alvarezw, PA-C 06/10/2020 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
--- OUTSIDE RECORDS SUMMARY | 2021-01-04 15:11 | CCD ---
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 Name Role Phone Yuly Scanlon MD Unavailable Unavailable Yuly Scanlon MD Unavailable Unavailable Yuly Scanlon MD Unavailable Unavailable Yuly Scanlon MD Unavailable Unavailable Yuly Scanlon MD Unavailable Unavailable Yuly Scanlon MD Unavailable Unavailable Yuly Scanlon MD Unavailable Unavailable Yuly Scanlon MD Unavailable Unavailable Yuly Scanlon MD Unavailable Unavailable Yuly Scanlon MD Unavailable Unavailable Yuly Scanlon MD Unavailable Unavailable Yuly Scanlon MD Unavailable Unavailable Yuly Scanlon MD Unavailable Unavailable Yuly Scanlon MD Unavailable Unavailable Yuly Scanlon MD Unavailable Unavailable Yuliya GODFREY MD Unavailable Unavailable Yuliya GODFREY MD Unavailable Unavailable Yuliya GODFREY MD Unavailable Unavailable Yuliya GODFREY MD Unavailable Unavailable Yuliya GODFREY MD Unavailable Unavailable Yuliya GODFREY MD Unavailable Unavailable ARNOLD, P GEORGI MD Unavailable Unavailable ARNOLD, P GEORGI MD Unavailable Unavailable ARNOLD, P GEORGI MD Unavailable Unavailable ARNOLD, P GEORGI MD Unavailable Unavailable ARNOLD, P GEORGI MD Unavailable Unavailable ARNOLD, P GEORGI MD Unavailable Unavailable ARNOLD, P GEORGI MD Unavailable Unavailable ARNOLD, P GEORGI MD Unavailable Unavailable ARNOLD, P GEORGI MD Unavailable Unavailable ARNOLD, P GEORGI MD Unavailable Unavailable ARNOLD, P GEORGI MD Unavailable Unavailable ARNOLD, P GEORGI MD Unavailable Unavailable ARNOLD, P GEORGI MD Unavailable Unavailable ARNOLD, P GEORGI MD Unavailable Unavailable ARNOLD, P GEORGI MD Unavailable Unavailable ARNOLD, P GEORGI MD Unavailable Unavailable ARNOLD, P GEORGI MD Unavailable Unavailable ARNOLD, P GEORGI MD Unavailable Unavailable ARNOLD, P GEORGI MD Unavailable Unavailable ARNOLD, P GEORGI MD Unavailable Unavailable ARNOLD, P GEORGI MD Unavailable Unavailable ARNOLD, P GEORGI MD Unavailable Unavailable ARNOLD, P GEORGI MD Unavailable Unavailable ARNOLD, P GEORGI MD Unavailable Unavailable ARNOLD, P GEORGI MD Unavailable Unavailable ARNOLD, P GEORGI MD Unavailable Unavailable ARNOLD, P GEORGI MD Unavailable Unavailable ARNOLD, P GEORGI MD Unavailable Unavailable Symenow, Sandra Carin PA Unavailable Unavailable Symenow, Sandra Carin PA Unavailable Unavailable Symenow, Sandra Carin PA Unavailable Unavailable Symenow, Sandra Carin PA Unavailable Unavailable Symenow, Sandra Carin PA Unavailable Unavailable Symenow, Sandra Carin PA Unavailable Unavailable Symenow, Sandra Carin PA Unavailable Unavailable Symenow, Sandra Carin PA Unavailable Unavailable Symenow, Sandra Carin PA Unavailable Unavailable Symenow, Sandra Carin PA Unavailable Unavailable Symenow, Sandra Carin PA Unavailable Unavailable Symenow, Sandra Carin PA Unavailable Unavailable Symenow, Sandra Carin PA Unavailable Unavailable Symenow, Sandra Carin PA Unavailable Unavailable Symenow, Sandra Carin PA Unavailable Unavailable Symenow, Sandra Carin PA Unavailable Unavailable Symenow, Sandra Carin PA Unavailable Unavailable Symenow, Sandra Carin PA Unavailable Unavailable Symenow, Sandra Carin PA Unavailable Unavailable Symenow, Sandra Carin PA Unavailable Unavailable Symenow, Sandra Carin PA Unavailable Unavailable Symenow, Sandra Carin PA Unavailable Unavailable Symenow, Sandra Carin PA Unavailable Unavailable Symenow, Sandra Carin PA Unavailable Unavailable Symenow, Sandra Carin PA Unavailable Unavailable Symenow, Sandra Carin PA Unavailable Unavailable Symenow, Sandra Carin PA Unavailable Unavailable Symenow, Sandra Carin PA Unavailable Unavailable Symenow, Sandra Carin PA Unavailable Unavailable Symenow, Sandra Carin PA Unavailable Unavailable Symenow, Sandra Carin PA Unavailable Unavailable Symenow, Sandra Carin PA Unavailable Unavailable Symenow, Sandra Carin PA Unavailable Unavailable Symenow, Sandra Carin PA Unavailable Unavailable Symenow, Sandra Carin PA Unavailable Unavailable Symenow, Sandra Carin PA Unavailable Unavailable Bruno, L Althea RPA Unavailable Unavailable Bruno, L Althea RPA Unavailable Unavailable Bruno, L Althea RPA Unavailable Unavailable Bruno, L Althea RPA Unavailable Unavailable Bruno, L Althea RPA Unavailable Unavailable Bruno, L Althea RPA Unavailable Unavailable Bruno, L Althea RPA Unavailable Unavailable Bruno, L Althea RPA Unavailable Unavailable Bruno, L Althea RPA Unavailable Unavailable Bruno, L Althea RPA Unavailable Unavailable Bruno, L Althea RPA Unavailable Unavailable Bruno, L Althea RPA Unavailable Unavailable Bruno, L Althea RPA Unavailable Unavailable Bruno, L Althea RPA Unavailable Unavailable Bruno, L Althea RPA Unavailable Unavailable Bruno, L Althea RPA Unavailable Unavailable Bruno, L Althea RPA Unavailable Unavailable Bruno, L Althea RPA Unavailable Unavailable Bruno, L Althea RPA Unavailable Unavailable Bruno, L Althea RPA Unavailable Unavailable Bruno, L Althea RPA Unavailable Unavailable Bruno, L Althea RPA Unavailable Unavailable Bruno, L Althea RPA Unavailable Unavailable Bruno, L Althea RPA Unavailable Unavailable Bruno, L Althea RPA Unavailable Unavailable Bruno, L Althea RPA Unavailable Unavailable Bruno, L Althea RPA Unavailable Unavailable Bruno, L Althea RPA Unavailable Unavailable Bruno, L Althea RPA Unavailable Unavailable Bruno, L Althea RPA Unavailable Unavailable Bruno, L Althea RPA Unavailable Unavailable Bruno, L Althea RPA Unavailable Unavailable Kyi, M Diana Unavailable Unavailable Ismael, Courtney PA Unavailable Unavailable Ismael, Courtney PA Unavailable Unavailable Ismael, Courtney PA Unavailable Unavailable Ismael, Courtney PA Unavailable Unavailable Ismael, Courtney PA Unavailable Unavailable Ismael, Courtney PA Unavailable Unavailable Ismael, Courtney PA Unavailable Unavailable Ismael, Courtney PA Unavailable Unavailable Ismael, Courtney PA Unavailable Unavailable Ismael, Courtney PA Unavailable Unavailable Ismael, Courtney PA Unavailable Unavailable Ismael, Courtney PA Unavailable Unavailable Ismael, Courtney PA Unavailable Unavailable Ismael, Courtney PA Unavailable Unavailable Ismael, Courtney PA Unavailable Unavailable Ismael, Courtney PA Unavailable Unavailable Ismael, Courtney PA Unavailable Unavailable Ismael, Courtney PA Unavailable Unavailable Isamel, Courtney PA Unavailable Unavailable Ismael, Courtney PA Unavailable Unavailable Ismael, Courtney PA Unavailable Unavailable Ismael, Courtney PA Unavailable Unavailable Ismael, Courtney PA Unavailable Unavailable Ismael, Courtney PA Unavailable Unavailable Ismael, Courtney PA Unavailable Unavailable Ismael, Courtney PA Unavailable Unavailable Ismael, Courtney PA Unavailable Unavailable Ismael, Courtney PA Unavailable Unavailable Ismael, Courtney PA Unavailable Unavailable Ismael, Courtney PA Unavailable Unavailable Ismael, Courtney PA Unavailable Unavailable Ismael, Courtney PA Unavailable Unavailable Ismael, Courtney PA Unavailable Unavailable Ismael, Courtney PA Unavailable Unavailable Ismael, Courtney PA Unavailable Unavailable Ismael, Courtney PA Unavailable Unavailable Ismael, Courtney PA Unavailable Unavailable Ismael, Courtney PA Unavailable Unavailable Ismael, Courtney PA Unavailable Unavailable Ismael, Courtney PA Unavailable Unavailable Ismael, Courtney PA Unavailable Unavailable Ismael, Courtney PA Unavailable Unavailable Ismael, Courtney PA Unavailable Unavailable Ismael, Courtney PA Unavailable Unavailable Ismael, Courtney PA Unavailable Unavailable Ismael, Courtney PA Unavailable Unavailable Ismael, Courtney PA Unavailable Unavailable Ismael, Courtney PA Unavailable Unavailable Ismael, Courtney PA Unavailable Unavailable Ismael, Courtney PA Unavailable Unavailable Ismael, Courtney PA Unavailable Unavailable Ismael, Courtney PA Unavailable Unavailable Ismael, Courtney PA Unavailable Unavailable Ismael, Courtney PA Unavailable Unavailable Ismael, Courtney PA Unavailable Unavailable Ismael, Courtney PA Unavailable Unavailable Ismael, Courtney PA Unavailable Unavailable Ismael, Courtney PA Unavailable Unavailable Symenow, Sandra Carin PA Unavailable Unavailable Symenow, Sandra Carin PA Unavailable Unavailable Symenow, Sandra Carin PA Unavailable Unavailable Symenow, Sandra Carin PA Unavailable Unavailable Symenow, Sandra Carin PA Unavailable Unavailable Symenow, Sandra Carin PA Unavailable Unavailable Symenow, Sandra Carin PA Unavailable Unavailable Symenow, Sandra Carin PA Unavailable Unavailable Symenow, Sandra Carin PA Unavailable Unavailable Symenow, Sandra Carin PA Unavailable Unavailable Symenow, Sandra Carin PA Unavailable Unavailable Symenow, Sandra Carin PA Unavailable Unavailable Symenow, Sandra Carin PA Unavailable Unavailable Symenow, Sandra Carin PA Unavailable Unavailable Symenow, Sandra Carin PA Unavailable Unavailable Symenow, Sandra Carin PA Unavailable Unavailable Symenow, Sandra Carin PA Unavailable Unavailable Symenow, Sandra Carin PA Unavailable Unavailable Symenow, Sandra Carin PA Unavailable Unavailable Symenow, Sandra Carin PA Unavailable Unavailable Symenow, Sandra Carin PA Unavailable Unavailable Symenow, Sandra Carin PA Unavailable Unavailable Symenow, Sandra Carin PA Unavailable Unavailable Symenow, Sandra Carin PA Unavailable Unavailable Symenow, Sandra Carin PA Unavailable Unavailable Symenow, Sandra Carin PA Unavailable Unavailable Symenow, Sandra Carin PA Unavailable Unavailable Symenow, Sandra Carin PA Unavailable Unavailable Symenow, Sandra Carin PA Unavailable Unavailable Symenow, Sandra Carin PA Unavailable Unavailable Symenow, Sandra Carin PA Unavailable Unavailable Symenow, Sandra Carin PA Unavailable Unavailable Symenow, Sandra Carin PA Unavailable Unavailable Symenow, Sandra Carin PA Unavailable Unavailable Symenow, Sandra Carin PA Unavailable Unavailable Symenow, Sandra Carin PA Unavailable Unavailable Alexandre, Suzanna Maria Del Carmen PA Unavailable Unavailable Alexandre, Suzanna Maria Del Carmen PA Unavailable Unavailable Suzanna Stover Maria Del Carmen PA Unavailable Unavailable Alexandre, Suzanna Maria Del Carmen PA Unavailable Unavailable Alexandre, Suzanna Maria Del Carmen PA Unavailable Unavailable Alexandre, Suzanna Maria Del Carmen PA Unavailable Unavailable Alexandre, Suzanna Maria Del Carmen PA Unavailable Unavailable Alexandre, L Maria Del Carmen PA Unavailable Unavailable Alexandre, L Maria Del Carmen PA Unavailable Unavailable Alexandre, L Maria Del Carmen PA Unavailable Unavailable Alexandre, L Maria Del Carmen PA Unavailable Unavailable Alexandre, L Maria Del Carmen PA Unavailable Unavailable Alexandre, L Maria Del Carmen PA Unavailable Unavailable Alexandre, L Maria Del Carmen PA Unavailable Unavailable Alexandre, L Maria Del Carmen PA Unavailable Unavailable Alexandre, L Maria Del Carmen PA Unavailable Unavailable Alexandre, L Maria Del Carmen PA Unavailable Unavailable Alexandre, L Maria Del Carmen PA Unavailable Unavailable Alexandre, L Maria Del Carmen PA Unavailable Unavailable Alexandre, L Maria Edl Carmen PA Unavailable Unavailable Alexandre, L Maria Del Carmen PA Unavailable Unavailable Alexandre, L Maria Del Carmen PA Unavailable Unavailable Alexandre, L Maria Del Carmen PA Unavailable Unavailable Re-disclosure Warning The records that you are about to access may contain information from federally-assisted alcohol or drug abuse programs. If such information is present, then the following federally mandated warning applies: This information has been disclosed to you from records protected by federal confidentiality rules (42 CFR part 2). The federal rules prohibit you from making any further disclosure of this information unless further disclosure is expressly permitted by the written consent of the person to whom it pertains or as otherwise permitted by 42 CFR part 2. A general authorization for the release of medical or other information is NOT sufficient for this purpose. The Federal rules restrict any use of the information to criminally investigate or prosecute any alcohol or drug abuse patient.The records that you are about to access may contain highly sensitive health information, the redisclosure of which is protected by Article 27-F of the [facility] Public Health law. If you continue you may have access to information: Regarding HIV / AIDS; Provided by facilities licensed or operated by the [facility] Office of Mental Health; or Provided by the [facility] Office for People With Developmental Disabilities. If such information is present, then the following [facility] mandated warning applies: This information has been disclosed to you from confidential records which are protected by state law. State law prohibits you from making any further disclosure of this information without the specific written consent of the person to whom it pertains, or as otherwise permitted by law. Any unauthorized further disclosure in violation of state law may result in a fine or care home sentence or both. A general authorization for the release of medical or other information is NOT sufficient authorization for further disc losure. Allergies and Adverse Reactions Type Description Substance Reaction Status Data Source(s ) AmLODIPine Besylate AmLODIPine Besylate Amlodipine 10 MG Oral Table t diarrhea Active eCW1 ([facility]) Family History Family Member Name Family Member Gender Family Member Status Date o f Status Description Data Source(s) Unknown Unknown Problem MEDENT ([facility]) SISTER Unknown Unknown Problem [facility] ([facility]) Encounters Encounter Providers Location Date Indications Data Source(s ) Outpatient Attender: Carin MORRISON 01/04/2021 09:19:00 A M EST lab [facility] lab Outpatient Attender: Carin MORRISON 12/02/2020 08:34:00 A M EST Lab [facility] Outpatient Attender: Carin MORRISON 11/17/2020 07:53:00 A M EST Lab [facility] Outpatient Attender: Carin MORRISON 11/08/2020 07:46:00 A M EST Lab [facility] Outpatient Attender: Carin MORRISON 2020 07:38:00 A M EST Lab [facility] Outpatient Attender: Carin MORRISON 09/14/2020 07:59:00 A M EDT Lab [facility] Outpatient Attender: Carin MORRISON Main Office 09/13/2020 09:15:00 AM EDT MEDENT ([facility]) Outpatient [address] [facility] [id number] 09/06/2020 12:00:00 AM EDT eCW1 ([facility]) [facility] [place] [address] [facility] [id number] 09/03/2020 12:00:00 AM EDT eCW1 ([facility]) Outpatient Attender: Carin MORRISON 09/01/2020 07:45:00 A M EDT Lab [facility] Outpatient Attender: Courtney MORRISON 08/30/2020 07:25:0 0 AM EDT lab 1 of 1 [facility] lab 1 of 1 Outpatient Attender: Maria Del Carmen MORRISON 08/17/2020 08:20:00 AM EDT lab 1 of 1 [facility] lab 1 of 1 Outpatient Attender: GEORGI GODFREY MD 08/11/2020 01:29:0 0 PM EDT Xray [facility] Xray Outpatient Attender: Maria Del Carmen MORRISON 08/11/2020 01:26:00 PM EDT Lab [facility] Outpatient Attender: Carin MORRISON 07/20/2020 07:42:00 A M EDT lab 1 of 1 [facility] lab 1 of 1 Outpatient Attender: Carin MORRISON 07/05/2020 07:25:00 A M EDT lab 1 of 1 [facility] lab 1 of 1 Outpatient Attender: Carin MORRISON Main Office 06/10/2020 09:15:00 AM EDT MEDENT ([facility]) Outpatient Attender: Carin MORRISON 06/03/2020 07:21:00 A M EDT lab 1 of 1 [facility] lab 1 of 1 Outpatient Attender: Diana Ramirez 05/10/2020 02:06:00 PM EDT L ab [facility] Outpatient Attender: Carin MORRISON 05/05/2020 07:01:00 A M EDT Lab [facility] Outpatient Attender: Althea Merritt/Huy/Rolf/R eindl 04/19/2020 09:15:00 AM EDT MEDENT ([facility]) Outpatient Attender: Carin MORRISON 04/06/2020 07:04:00 A M EDT Lab [facility] Outpatient Attender: Carin MORRISON 03/08/2020 09:08:00 A M EDT Lab [facility] [address], [facility] [address] 03/04/2020 12:00:00 AM EDT eCW1 ([facility]) Outpatient Attender: Courtney MORRISON 02/10/2020 08:29:0 0 AM EDT Lab [facility] Outpatient Attender: Carin MORRISON 02/10/2020 08:26:00 A M EDT Lab [facility] Outpatient Attender: Sanna Merritt/Huy/Rolf/ Reindl 01/12/2020 12:15:00 PM EST MEDENT ([facility]) Outpatient Attender: Maria Del Carmen MORRISON 01/12/2020 07:33:00 AM EST lab [facility] lab Outpatient 12/15/2019 01:08:00 PM EST [facility] Outpatient Attender: Maria Del Carmen MORRISON 12/15/2019 08:21:00 AM EST Lab [facility] Outpatient Attender: Carin MORRISON Main Office 12/09/2019 11:45:00 AM EST MEDENT ([facility]) Outpatient Attender: Althea Merritt/Huy/Rolf/Medina eimarychuyl 12/02/2019 08:15:00 AM EST MEDENT ([facility]) Outpatient Attender: Maria Del Carmen MORRISON 12/01/2019 07:41:00 AM EST lab [facility] lab Immunizations Vaccine Date Status Description Data Source(s) Vitamin B-12 1000mcg/1mL (Cyanocobalamin) 09/06/2020 10:26:00 AM EDT completed eCW1 ([facility]) influenza, recombinant, quadrIvalent,injectable, prese rvative free 09/06/2020 10:25:00 AM EDT completed eCW1 ([facility]) Medications Medication Brand Name Start Date Product Form Dose Route Admi nistrative Instructions Pharmacy Instructions Status Indications Reaction Description Data Source(s) 100 unit/mL (3 mL) 12/17/2020 12:00:00 AM EST insulin pen 15 INJECT 35 UNITS SUBCUTANEOUSLY ONCE DAILY INJECT 35 UNITS SUBCUTANEOUSLY ONCE DAILY SOLD: 12/20/2020 [facility] 100 mcg/0.5 mL 12/07/2020 12:00:00 AM EST suspension 0 INJECT BY [facility] (FIRST DOSE) INJECT BY [facility] (FIRST DOSE) SOLD: 12/07/2020 [facility] BLOOD SUGAR DIAGNOSTIC 10/30/2020 12:00:00 AM EST strip 100 USE TO TEST BLOOD SUGAR THREE TIMES A DAY USE TO TEST BLOOD SUGAR THREE TIMES A DAY SOLD: 12/06/2020 [facility] BLOOD SUGAR DIAGNOSTIC 10/30/2020 12:00:00 AM EST strip 100 USE TO TEST BLOOD SUGAR THREE TIMES A DAY USE TO TEST BLOOD SUGAR THREE TIMES A DAY SOLD: 11/01/2020 [facility] calcium acetate 667 MG Oral Capsule CALCIUM ACETATE 10/25/2020 1 2:00:00 AM EST capsule 90 TAKE ONE CAPSULE BY MOUTH THREE TIMES A DAY WITH MEALS TAKE ONE CAPSULE BY MOUTH THREE TIMES A DAY WITH MEALS SOLD: 11/28/2020 [facility] 667 mg 10/25/2020 12:00:00 AM EST capsule 90 TAKE ONE CAPSULE BY MOUTH THREE TIMES A DAY WITH MEALS TAKE ONE CAPSULE BY MOUTH THREE TIMES A DAY WITH MEALS SOLD: 10/30/2020 [facility] 667 mg 10/25/2020 12:00:00 AM EST capsule 90 TAKE ONE CAPSULE BY MOUTH THREE TIMES A DAY WITH MEALS TAKE ONE CAPSULE BY MOUTH THREE TIMES A DAY WITH MEALS SOLD: 12/27/2020 [facility] 40 mg 10/22/2020 12:00:00 AM EST tablet 90 TAKE ONE TABLET BY MOUTH EVERY EVENING TAKE ONE TABLET BY MOUTH EVERY EVENING SOLD: 10/23/2020 [facility] Dicyclomine Hydrochloride 20 MG Oral Tablet Dicyclomine HCL 09/12/2020 12:00:00 AM EDT ORAL active MEDENT ([facility]) calcium acetate 667 MG Oral Capsule Calcium Acetate ([facility]) 09/12/2020 12:00:00 AM EDT ORAL active M EDENT ([facility]) Hydralazine Hydrochloride 10 MG Oral Tablet Hydralazine HCL 09/12/2020 12:00:00 AM EDT ORAL active MEDENT ([facility]) 20 mg 09/06/2020 12:00:00 AM EDT tablet 270 TAKE ONE TABLET BY MOUTH BEFORE MEALS AND AT BEDTIME THREE TIMES A DAY TAKE ONE TABLET BY MOUTH BEFORE MEALS AN D AT BEDTIME THREE TIMES A DAY SOLD: 09/11/2020 [facility] 20 mg 09/06/2020 12:00:00 AM EDT tablet 270 TAKE ONE TABLET BY MOUTH BEFORE MEALS AND AT BEDTIME THREE TIMES A DAY TAKE ONE TABLET BY MOUTH BEFORE MEALS AN D AT BEDTIME THREE TIMES A DAY SOLD: 12/10/2020 [facility] 10 mg 09/02/2020 12:00:00 AM EDT tablet 360 TAKE TWO TABLETS BY MOUTH EVERY MORNING AND TAKE TWO TABLETS BY MOUTH EVERY EVENING TAKE TWO TABLETS BY MOUTH EVERY MORNING AND TAKE TWO TABLETS BY MOUTH EVERY EVENING SOLD: 09/03/2020 [facility] 10 mg 09/02/2020 12:00:00 AM EDT tablet 360 TAKE TWO TABLETS BY MOUTH EVERY MORNING AND TAKE TWO TABLETS BY MOUTH EVERY EVENING TAKE TWO TABLETS BY MOUTH EVERY MORNING AND TAKE TWO TABLETS BY MOUTH EVERY EVENING SOLD: 12/02/2020 [facility] torsemide 20 MG Oral Tablet Torsemide 09/01/2020 12:00:00 AM EDT ORAL active MEDENT ([facility]) 80 mg 08/27/2020 12:00:00 AM EDT tablet 30 TAKE ONE TABLET BY MOUTH EVERY DAY TAKE ONE TABLET BY MOUTH EVERY DAY SOLD: 12/27/2020 [facility] 80 mg 08/27/2020 12:00:00 AM EDT tablet 90 TAKE ONE TABLET BY MOUTH EVERY DAY TAKE ONE TABLET BY MOUTH EVERY DAY SOLD: 08/28/2020 [facility] 80 mg 08/27/2020 12:00:00 AM EDT tablet 30 TAKE ONE TABLET BY MOUTH EVERY DAY TAKE ONE TABLET BY MOUTH EVERY DAY SOLD: 11/26/2020 [facility] 667 mg 05/17/2020 12:00:00 AM EDT capsule 90 TAKE ONE CAPSULE BY MOUTH THREE TIMES A DAY WITH MEALS TAKE ONE CAPSULE BY MOUTH THREE TIMES A DAY WITH MEALS SOLD: 07/29/2020 [facility] 667 mg 05/17/2020 12:00:00 AM EDT capsule 90 TAKE ONE CAPSULE BY MOUTH THREE TIMES A DAY WITH MEALS TAKE ONE CAPSULE BY MOUTH THREE TIMES A DAY WITH MEALS SOLD: 09/27/2020 [facility] calcium acetate 667 MG Oral Capsule CALCIUM ACETATE 05/17/2020 1 2:00:00 AM EDT capsule 90 TAKE ONE CAPSULE BY MOUTH THREE TIMES A DAY WITH MEALS TAKE ONE CAPSULE BY MOUTH THREE TIMES A DAY WITH MEALS SOLD: 08/28/2020 [facility] 667 mg 05/17/2020 12:00:00 AM EDT capsule 90 TAKE ONE CAPSULE BY MOUTH THREE TIMES A DAY WITH MEALS TAKE ONE CAPSULE BY MOUTH THREE TIMES A DAY WITH MEALS SOLD: 06/30/2020 [facility] calcium acetate 667 MG Oral Capsule CALCIUM ACETATE 05/17/2020 1 2:00:00 AM EDT capsule 90 TAKE ONE CAPSULE BY MOUTH THREE TIMES A DAY WITH MEALS TAKE ONE CAPSULE BY MOUTH THREE TIMES A DAY WITH MEALS SOLD: 05/20/2020 [facility] 40 mg 05/15/2020 12:00:00 AM EDT tablet 90 TAKE ONE TABLET BY MOUTH EVERY EVENING TAKE ONE TABLET BY MOUTH EVERY EVENING SOLD: 08/06/2020 [facility] 40 mg 05/15/2020 12:00:00 AM EDT tablet 90 TAKE ONE TABLET BY MOUTH EVERY EVENING TAKE ONE TABLET BY MOUTH EVERY EVENING SOLD: 05/20/2020 [facility] 2.5 mg 05/13/2020 12:00:00 AM EDT tablet 90 TAKE ONE TABLET BY MOUTH EVERY DAY TAKE ONE TABLET BY MOUTH EVERY DAY SOLD: 05/20/2020 [facility] 2.5 mg 05/13/2020 12:00:00 AM EDT tablet 90 TAKE ONE TABLET BY MOUTH EVERY DAY TAKE ONE TABLET BY MOUTH EVERY DAY SOLD: 08/06/2020 [facility] 2.5 mg 05/13/2020 12:00:00 AM EDT tablet 90 TAKE ONE TABLET BY MOUTH EVERY DAY TAKE ONE TABLET BY MOUTH EVERY DAY SOLD: 11/06/2020 [facility] carvedilol 6.25 MG Oral Tablet CARVEDILOL 04/23/2020 12:00:00 AM EDT tablet 180 TAKE ONE TABLET BY MOUTH TWICE A DAY TAKE ONE TABLET BY MOUT H TWICE A DAY SOLD: 07/25/2020 [facility] carvedilol 6.25 MG Oral Tablet CARVEDILOL 04/23/2020 12:00:00 AM EDT tablet 180 TAKE ONE TABLET BY MOUTH TWICE A DAY TAKE ONE TABLET BY MOUT H TWICE A DAY SOLD: 04/25/2020 [facility] carvedilol 6.25 MG Oral Tablet CARVEDILOL 04/23/2020 12:00:00 AM EDT tablet 180 TAKE ONE TABLET BY MOUTH TWICE A DAY TAKE ONE TABLET BY MOUT H TWICE A DAY SOLD: 10/22/2020 [facility] BLOOD SUGAR DIAGNOSTIC 04/18/2020 12:00:00 AM EDT strip 100 USE DIRECTED TO TEST BLOOD SUGAR 3 TIMES DAILY USE DIRECTED TO TEST BLOOD SUGAR 3 TI MES DAILY SOLD: 06/30/2020 [facility] BLOOD SUGAR DIAGNOSTIC 04/18/2020 12:00:00 AM EDT strip 100 USE DIRECTED TO TEST BLOOD SUGAR 3 TIMES DAILY USE DIRECTED TO TEST BLOOD SUGAR 3 TI MES DAILY SOLD: 04/19/2020 [facility] BLOOD SUGAR DIAGNOSTIC 04/18/2020 12:00:00 AM EDT strip 100 USE DIRECTED TO TEST BLOOD SUGAR 3 TIMES DAILY USE DIRECTED TO TEST BLOOD SUGAR 3 TI MES DAILY SOLD: 05/23/2020 [facility] BLOOD SUGAR DIAGNOSTIC 04/18/2020 12:00:00 AM EDT strip 100 USE DIRECTED TO TEST BLOOD SUGAR 3 TIMES DAILY USE DIRECTED TO TEST BLOOD SUGAR 3 TI MES DAILY SOLD: 09/03/2020 [facility] BLOOD SUGAR DIAGNOSTIC 04/18/2020 12:00:00 AM EDT strip 100 USE DIRECTED TO TEST BLOOD SUGAR 3 TIMES DAILY USE DIRECTED TO TEST BLOOD SUGAR 3 TI MES DAILY SOLD: 10/06/2020 [facility] BLOOD SUGAR DIAGNOSTIC 04/18/2020 12:00:00 AM EDT strip 100 USE DIRECTED TO TEST BLOOD SUGAR 3 TIMES DAILY USE DIRECTED TO TEST BLOOD SUGAR 3 TI MES DAILY SOLD: 08/02/2020 [facility] 25 mg 04/16/2020 12:00:00 AM EDT tablet 90 TAKE ONE TABLET BY MOUTH EVERY DAY TAKE ONE TABLET BY MOUTH EVERY DAY SOLD: 04/19/2020 [facility] Hydralazine Hydrochloride 10 MG Oral Tablet Hydralazine HCL 03/08/2020 12:00:00 AM EDT ORAL active [facility] ([facility]) Hydralazine Hydrochloride 10 MG Oral Tablet HYDRALAZINE HCL 03/04/2020 12:00:00 AM EDT tablet 150 TAKE TWO TABLETS BY MOUTH EVERY MORNING , 1 AT NOON AND TAKE TWO TABLETS BY MOUTH EVERY EVENING TAKE TWO TABLETS BY MOUTH EVERY MORNING , 1 AT NOON AND TAKE TWO TABLETS BY MOUTH EVERY EVENING SOLD: 03/12/2020 [facility] Hydralazine Hydrochloride 10 MG Oral Tablet HYDRALAZINE HCL 03/04/2020 12:00:00 AM EDT tablet 150 TAKE TWO TABLETS BY MOUTH EVERY MORNING , 1 AT NOON AND TAKE TWO TABLETS BY MOUTH EVERY EVENING TAKE TWO TABLETS BY MOUTH EVERY MORNING , 1 AT NOON AND TAKE TWO TABLETS BY MOUTH EVERY EVENING SOLD: 04/15/2020 [facility] 80 mg 02/26/2020 12:00:00 AM EDT tablet 90 TAKE ONE TABLET BY MOUTH EVERY DAY TAKE ONE TABLET BY MOUTH EVERY DAY SOLD: 06/01/2020 [facility] 80 mg 02/26/2020 12:00:00 AM EDT tablet 90 TAKE ONE TABLET BY MOUTH EVERY DAY TAKE ONE TABLET BY MOUTH EVERY DAY SOLD: 02/28/2020 [facility] 100 unit/mL (3 mL) 01/26/2020 12:00:00 AM EDT insulin pen 15 INJECT 35 UNITS ONCE DAILY INJECT 35 UNITS ONCE DAILY SOLD: 02/25/2020 [facility] 100 unit/mL (3 mL) 01/26/2020 12:00:00 AM EDT insulin pen 15 INJECT 35 UNITS ONCE DAILY INJECT 35 UNITS ONCE DAILY SOLD: 01/28/2020 [facility] 100 unit/mL (3 mL) 01/26/2020 12:00:00 AM EDT insulin pen 15 INJECT 35 UNITS ONCE DAILY INJECT 35 UNITS ONCE DAILY SOLD: 06/30/2020 [facility] 100 unit/mL (3 mL) 01/26/2020 12:00:00 AM EDT insulin pen 15 INJECT 35 UNITS ONCE DAILY INJECT 35 UNITS ONCE DAILY SOLD: 06/01/2020 [facility] 100 unit/mL (3 mL) 01/26/2020 12:00:00 AM EDT insulin pen 15 INJECT 35 UNITS ONCE DAILY INJECT 35 UNITS ONCE DAILY SOLD: 10/23/2020 [facility] 100 unit/mL (3 mL) 01/26/2020 12:00:00 AM EDT insulin pen 15 INJECT 35 UNITS ONCE DAILY INJECT 35 UNITS ONCE DAILY SOLD: 08/02/2020 [facility] 100 unit/mL (70-30) 12/29/2019 12:00:00 AM EST insulin pen 1 5 INJECT 30 UNITS UNDER THE SKIN EVERY MORNING INJECT 30 UNITS UNDER THE SKIN EVERY MORNING SOLD: 08/02/2020 [facility] 100 unit/mL (70-30) 12/29/2019 12:00:00 AM EST insulin pen 1 5 INJECT 30 UNITS UNDER THE SKIN EVERY MORNING INJECT 30 UNITS UNDER THE SKIN EVERY MORNING SOLD: 04/15/2020 [facility] 100 unit/mL (70-30) 12/29/2019 12:00:00 AM EST insulin pen 1 5 INJECT 30 UNITS UNDER THE SKIN EVERY MORNING INJECT 30 UNITS UNDER THE SKIN EVERY MORNING SOLD: 10/23/2020 [facility] 100 unit/mL (70-30) 12/29/2019 12:00:00 AM EST insulin pen 1 5 INJECT 30 UNITS UNDER THE SKIN EVERY MORNING INJECT 30 UNITS UNDER THE SKIN EVERY MORNING SOLD: 02/25/2020 [facility] 100 unit/mL (70-30) 12/29/2019 12:00:00 AM EST insulin pen 1 5 INJECT 30 UNITS UNDER THE SKIN EVERY MORNING INJECT 30 UNITS UNDER THE SKIN EVERY MORNING SOLD: 01/08/2020 [facility] 100 unit/mL (70-30) 12/29/2019 12:00:00 AM EST insulin pen 1 5 INJECT 30 UNITS UNDER THE SKIN EVERY MORNING INJECT 30 UNITS UNDER THE SKIN EVERY MORNING SOLD: 06/10/2020 [facility] 80 mg 12/19/2019 12:00:00 AM EST tablet 90 TAKE ONE TABLET BY MOUTH EVERY DAY TAKE ONE TABLET BY MOUTH EVERY DAY SOLD: 12/22/2019 [facility] Hydralazine Hydrochloride 10 MG Oral Tablet HYDRALAZINE HCL 12/16/2019 12:00:00 AM EST tablet 120 TAKE TWO TABLETS BY MOUTH TW ICE A DAY TAKE TWO TABLETS BY MOUTH TWICE A DAY SOLD: 05/13/2020 [facility] Hydralazine Hydrochloride 10 MG Oral Tablet HYDRALAZINE HCL 12/16/2019 12:00:00 AM EST tablet 120 TAKE TWO TABLETS BY MOUTH TW ICE A DAY TAKE TWO TABLETS BY MOUTH TWICE A DAY SOLD: 03/30/2020 [facility] Hydralazine Hydrochloride 10 MG Oral Tablet HYDRALAZINE HCL 12/16/2019 12:00:00 AM EST tablet 120 TAKE TWO TABLETS BY MOUTH TW ICE A DAY TAKE TWO TABLETS BY MOUTH TWICE A DAY SOLD: 01/20/2020 [facility] Hydralazine Hydrochloride 10 MG Oral Tablet HYDRALAZINE HCL 12/16/2019 12:00:00 AM EST tablet 120 TAKE TWO TABLETS BY MOUTH TW ICE A DAY TAKE TWO TABLETS BY MOUTH TWICE A DAY SOLD: 12/19/2019 [facility] Hydralazine Hydrochloride 10 MG Oral Tablet HYDRALAZINE HCL 12/16/2019 12:00:00 AM EST tablet 120 TAKE TWO TABLETS BY MOUTH TW ICE A DAY TAKE TWO TABLETS BY MOUTH TWICE A DAY SOLD: 02/17/2020 [facility] 667 mg 12/11/2019 12:00:00 AM EST capsule 90 TAKE ONE CAPSULE BY MOUTH THREE TIMES A DAY WITH MEALS TAKE ONE CAPSULE BY MOUTH THREE TIMES A DAY WITH MEALS SOLD: 03/22/2020 [facility] 667 mg 12/11/2019 12:00:00 AM EST capsule 90 TAKE ONE CAPSULE BY MOUTH THREE TIMES A DAY WITH MEALS TAKE ONE CAPSULE BY MOUTH THREE TIMES A DAY WITH MEALS SOLD: 04/19/2020 [facility] 667 mg 12/11/2019 12:00:00 AM EST capsule 90 TAKE ONE CAPSULE BY MOUTH THREE TIMES A DAY WITH MEALS TAKE ONE CAPSULE BY MOUTH THREE TIMES A DAY WITH MEALS SOLD: 01/20/2020 [facility] calcium acetate 667 MG Oral Capsule CALCIUM ACETATE 12/11/2019 1 2:00:00 AM EST capsule 90 TAKE ONE CAPSULE BY MOUTH THREE TIMES A DAY WITH MEALS TAKE ONE CAPSULE BY MOUTH THREE TIMES A DAY WITH MEALS SOLD: 02/17/2020 [facility] 667 mg 12/11/2019 12:00:00 AM EST capsule 90 TAKE ONE CAPSULE BY MOUTH THREE TIMES A DAY WITH MEALS TAKE ONE CAPSULE BY MOUTH THREE TIMES A DAY WITH MEALS SOLD: 12/19/2019 [facility] Calcitriol 0.87793 MG Oral Capsule 0.25 mcg CALCITRIOL 11/10/2019 12:00:00 AM EST capsule 36 TAKE 1 CAPSULE BY MOUTH ON , SUNDAY, AND SUNDAY TAKE 1 CAPSULE BY MOUTH ON SUNDAY, SUNDAY, AND SUNDAY SOLD: 11/11/2019 [facility] 20 mg 11/10/2019 12:00:00 AM EST tablet 150 TAKE 2 AND 1/2 TABLETS BY MOUTH TWICE DAILY TAKE 2 AND 1/2 TABLETS BY MOUTH TWICE DAILY SOLD: 12/19/2019 [facility] 20 mg 11/10/2019 12:00:00 AM EST tablet 150 TAKE 2 AND 1/2 TABLETS BY MOUTH TWICE DAILY TAKE 2 AND 1/2 TABLETS BY MOUTH TWICE DAILY SOLD: 03/22/2020 [facility] 20 mg 11/10/2019 12:00:00 AM EST tablet 150 TAKE 2 AND 1/2 TABLETS BY MOUTH TWICE DAILY TAKE 2 AND 1/2 TABLETS BY MOUTH TWICE DAILY SOLD: 11/11/2019 [facility] 20 mg 11/10/2019 12:00:00 AM EST tablet 150 TAKE 2 AND 1/2 TABLETS BY MOUTH TWICE DAILY TAKE 2 AND 1/2 TABLETS BY MOUTH TWICE DAILY SOLD: 04/25/2020 [facility] 20 mg 11/10/2019 12:00:00 AM EST tablet 150 TAKE 2 AND 1/2 TABLETS BY MOUTH TWICE DAILY TAKE 2 AND 1/2 TABLETS BY MOUTH TWICE DAILY SOLD: 02/17/2020 [facility] 20 mg 11/10/2019 12:00:00 AM EST tablet 150 TAKE 2 AND 1/2 TABLETS BY MOUTH TWICE DAILY TAKE 2 AND 1/2 TABLETS BY MOUTH TWICE DAILY SOLD: 01/20/2020 [facility] BLOOD SUGAR DIAGNOSTIC 10/20/2019 12:00:00 AM EST strip 100 USE DIRECTED THREE TIMES A DAY USE DIRECTED THREE TIMES A DAY SOLD: 12/19/2019 [facility] BLOOD SUGAR DIAGNOSTIC 10/20/2019 12:00:00 AM EST strip 100 USE DIRECTED THREE TIMES A DAY USE DIRECTED THREE TIMES A DAY SOLD: 01/20/2020 [facility] BLOOD SUGAR DIAGNOSTIC 10/20/2019 12:00:00 AM EST strip 100 USE DIRECTED THREE TIMES A DAY USE DIRECTED THREE TIMES A DAY SOLD: 02/17/2020 [facility] BLOOD SUGAR DIAGNOSTIC 10/20/2019 12:00:00 AM EST strip 100 USE DIRECTED THREE TIMES A DAY USE DIRECTED THREE TIMES A DAY SOLD: 03/22/2020 [facility] BLOOD SUGAR DIAGNOSTIC 10/20/2019 12:00:00 AM EST strip 100 USE DIRECTED THREE TIMES A DAY USE DIRECTED THREE TIMES A DAY SOLD: 11/19/2019 [facility] Simvastatin 40 MG Oral Tablet SIMVASTATIN 10/20/2019 12:00:00 AM EST tablet 90 TAKE ONE TABLET BY MOUTH EVERY EVENING TAKE ONE TABLET BY MO UTH EVERY EVENING SOLD: 01/20/2020 [facility] 25 mg 10/13/2019 12:00:00 AM EST tablet 90 TAKE ONE TABLET BY MOUTH EVERY DAY TAKE ONE TABLET BY MOUTH EVERY DAY SOLD: 01/20/2020 [facility] Hydralazine Hydrochloride 10 MG Oral Tablet HYDRALAZINE HCL 08/01/2019 12:00:00 AM EDT tablet 120 TAKE TWO TABLETS BY MOUTH TW ICE A DAY TAKE TWO TABLETS BY MOUTH TWICE A DAY SOLD: 11/19/2019 [facility] 667 mg 05/19/2019 12:00:00 AM EDT capsule 90 TAKE ONE CAPSULE BY MOUTH THREE TIMES A DAY WITH MEALS TAKE ONE CAPSULE BY MOUTH THREE TIMES A DAY WITH MEALS SOLD: 11/14/2019 [facility] 2.5 mg 05/14/2019 12:00:00 AM EDT tablet 90 TAKE ONE TABLET BY MOUTH EVERY DAY TAKE ONE TABLET BY MOUTH EVERY DAY SOLD: 11/14/2019 [facility] 2.5 mg 05/14/2019 12:00:00 AM EDT tablet 90 TAKE ONE TABLET BY MOUTH EVERY DAY TAKE ONE TABLET BY MOUTH EVERY DAY SOLD: 02/17/2020 [facility] carvedilol 6.25 MG Oral Tablet CARVEDILOL 04/19/2019 12:00:00 AM EDT tablet 180 TAKE ONE TABLET BY MOUTH TWICE A DAY TAKE ONE TABLET BY MOUT H TWICE A DAY SOLD: 01/08/2020 [facility] 100 unit/mL (3 mL) 03/13/2019 12:00:00 AM EDT insulin pen 15 INJECT 35 UNITS UNDER THE SKIN ONCE DAILY INJECT 35 UNITS UNDER THE SKIN ONCE DAILY SOLD: 12/19/2019 [facility] 100 unit/mL (70-30) 02/06/2019 12:00:00 AM EDT insulin pen 1 5 INJECT 30 UNITS UNDER THE SKIN EVERY MORNING INJECT 30 UNITS UNDER THE SKIN EVERY MORNING SOLD: 11/11/2019 [facility] 2.5 mg 01/31/2019 12:00:00 AM EDT tablet 180 TAKE 1-2 TABLETS BY MOUTH DAILY DIRECTED BY CARDIOLOGY TAKE 1-2 TABLETS BY MOUTH DAILY DIREC MADELEINE BY CARDIOLOGY SOLD: 11/11/2019 [facility] Insurance Providers Payer name Policy type / Coverage type Policy ID Covered constitution party ID Covered constitution party's relationship to moreira Policy [place] Plan Information AETNA MEDICARE [id number] SP [id number] SELF PAY AETNA MEDICARE ADV [id number] SP [id number] AETNA MEDICARE [id number] SP [id number] SELF PAY AETNA MEDICARE ADV [id number] SP [id number] SELF PAY AETNA MEDICARE ADV [id number] SP M [id number] SELF PAY AETNA MEDICARE ADV [id number] SP M [id number] AETNA MEDICARE [id number] SP [id number] SELF PAY AETNA MEDICARE ADV [id number] SP M [id number] AETNA MEDICARE [id number] SP [id number] SELF PAY AETNA MEDICARE ADV [id number] SP M [id number] SELF PAY AETNA MEDICARE ADV [id number] SP M [id number] SELF PAY AETNA MEDICARE ADV [id number] SP M [id number] SELF PAY AETNA MEDICARE ADV [id number] SP M [id number] SELF PAY AETNA MEDICARE ADV [id number] SP M [id number] SELF PAY AETNA MEDICARE ADV [id number] SP M [id number] SELF PAY AETNA MEDICARE ADV [id number] SP M [id number] SELF PAY AETNA MEDICARE ADV [id number] SP M [id number] SELF PAY AETNA MEDICARE ADV [id number] SP M [id number] SELF PAY AETNA MEDICARE ADV [id number] SP M [id number] SELF PAY AETNA MEDICARE ADV [id number] SP M [id number] SELF PAY AETNA MEDICARE ADV [id number] SP M [id number] SELF PAY AETNA MEDICARE ADV [id number] SP M [id number] SELF PAY AETNA MEDICARE ADV [id number] SP M [id number] SELF PAY AETNA MEDICARE ADV [id number] SP M [id number] AETNA MEDICARE O [id number] S [id number] AETNA MEDICARE [id number] SP [id number] SELF PAY AETNA MEDICARE ADV [id number] SP M [id number] SELF PAY AETNA MEDICARE ADV [id number] SP M [id number] SELF PAY AETNA MEDICARE ADV [id number] SP M [id number] SELF PAY AETNA MEDICARE ADV [id number] SP M [id number] SELF PAY AETNA MEDICARE ADV [id number] SP M [id number] SELF PAY AETNA MEDICARE ADV [id number] SP M [id number] SELF PAY AETNA MEDICARE ADV [id number] SP M [id number] SELF PAY AETNA MEDICARE ADV [id number] SP M [id number] ANSI-Medicare Part B [id number] ANSI-Medicare Part B [id number] ANSI-Medicare Part B [id number] ANSI-Medicare Part B [id number] SELF PAY AETNA MEDICARE ADV [id number] SP M [id number] ANSI-Medicare Part B [id number] ANSI-Medicare Part B [id number] SELF PAY AETNA MEDICARE ADV [id number] SP M [id number] [employer] Options [facility] Commercial [id number] Self [id number] Medicare (Part B) Medicare Primary [id number] Self [id number] Medicaid Spenddown Medigap Part B [id number] Self [id number] Medicaid Medigap Part B [id number] Self [id number] [facility] [id number] Self [id number] Aetna Medicare Commercial [id number] Self [id number] U/HC Medicare Solutions Commercial [id number] Self [id number] AETNA MEDICARE [id number] SP [id number] SELF PAY AETNA MEDICARE ADV [id number] SP M [id number] ANSI-Medicare Part B [id number] ANSI-Medicare Part B [id number] [facility] Part [facility] [id number] 12 Self [id number] [place] Primary [id number] Self [id number] Aetna Commercial [id number] Self [id number] SELF PAY AETNA MEDICARE ADV [id number] SP M [id number] MEDICARE [id number] SP [id number] SELF PAY AETNA MEDICARE ADV [id number] SP M [id number] [facility] Medigap Part B [id number] 12 Self [id number] [place] Medicare Primary [id number] Self [id number] SELF PAY AETNA MEDICARE ADV [id number] SP M [id number] SELF PAY AETNA MEDICARE ADV [id number] SP M [id number] [employer] Options PFFS Commercial [id number] Self [id number] Medicare (Part B) Medicare Primary [id number] Self [id number] Medicaid Spenddown Medigap Part B [id number] Self [id number] Medicaid Medigap Part B [id number] Self [id number] [facility] Medigap Part B [id number] Self [id number] Aetna Medicare Commercial [id number] Self [id number] [employer] Options PFFS Commercial [id number] Self [id number] Medicare (Part B) Medicare Primary [id number] Self [id number] Medicaid Spenddown Medigap Part B [id number] Self [id number] Medicaid Medigap Part B [id number] Self [id number] [facility] Medigap Part B [id number] Self [id number] Aetna Medicare Commercial [id number] Self [id number] [facility] Medigap Part B [id number] 12 Self [id number] [place] Medicare Primary [id number] Self [id number] ANSI-Medicare Part B [id number] ANSI-Medicare Part B [id number] SELF PAY AETNA MEDICARE ADV [id number] SP M [id number] AETNA MEDICARE COMPLETE G [id number] Self [id number] SELF PAY AETNA MEDICARE ADV [id number] SP M [id number] ANSI-Medicare Part B [id number] ANSI-Medicare Part B [id number] Today[employer] Options PFFS Commercial [id number] Self [id number] Medicare (Part B) Medicare Primary [id number] Self [id number] Medicaid Spenddown Medigap Part B [id number] Self [id number] Medicaid Medigap Part B [id number] Self [id number] [facility] [id number] Self [id number] Aetna Medicare Commercial [id number] Self [id number] SELF PAY AETNA MEDICARE ADV [id number] SP M [id number] SELF PAY AETNA MEDICARE ADV [id number] SP M [id number] MEDICARE [id number] SP [id number] SELF PAY AETNA MEDICARE ADV [id number] SP M [id number] SELF PAY AETNA MEDICARE ADV [id number] SP M [id number] [employer] Options PFFS Commercial [id number] Self [id number] Medicare (Part B) Medicare Primary [id number] Self [id number] Medicaid Spenddown Medigap Part B [id number] Self [id number] Medicaid Medigap Part B [id number] Self [id number] [facility] Healthcare Options Medigap Part B [id number] Self [id number] Aetna Medicare Commercial [id number] Self [id number] SELF PAY AETNA MEDICARE ADV [id number] SP M [id number] SELF PAY AETNA MEDICARE ADV [id number] SP M [id number] SELF PAY AETNA MEDICARE ADV [id number] SP M [id number] SELF PAY AETNA MEDICARE ADV [id number] SP M [id number] ANSI-Medicare Part B [id number] ANSI-Medicare Part B [id number] ANSI-Medicare Part B [id number] ANSI-Medicare Part B [id number] AETNA MEDICARE ADV [id number] SP M [id number] AETNA MEDICARE COMPLETE G [id number] Self [id number] OTHER B TRANSPLANT Self TRANSPLAN T ANSI-Medicare Part B [id number] ANSI-Medicare Part B [id number] MEDICARE [id number] SP [id number] ANSI-Medicare Part B [id number] ANSI-Medicare Part B [id number] Today's Options PFFS Commercial [id number] Self [id number] Medicare (Part B) Medicare Primary [id number] Self [id number] Medicaid Spenddown Medigap Part B [id number] Self [id number] Medicaid Medigap Part B [id number] Self [id number] [facility] Medigap Part B [id number] Self [id number] Aetna Medicare Commercial [id number] Self [id number] AETNA MEDICARE [id number] SP [id number] Today's Options PFFS Commercial [id number] Self [id number] Medicare (Part B) Medicare Primary [id number] Self [id number] Medicaid Spenddown Medigap Part B [id number] Self [id number] Medicaid Medigap Part B [id number] Self [id number] [facility] Medigap Part B [id number] Self [id number] Aetna Medicare Commercial [id number] Self [id number] AETNA MEDICARE ADV [id number] SP M [id number] AETNA LIFE [employer]TY [id number] SP [id number] Today's Options PFFS Commercial [id number] Self [id number] Medicare (Part B) Medicare Primary [id number] Self [id number] Medicaid Spenddown Medigap Part B [id number] Self [id number] Medicaid Medigap Part B [id number] Self [id number] [facility] Medigap Part B [id number] Self [id number] Aetna Medicare Commercial [id number] Self [id number] [facility] MGD MEDICARE [id number] SP [id number] MEDICARE [id number] SP [id number] A MEDICARE COMPLETE [id number] SP [id number] [facility] Medicare Commercial [id number] Self [id number] [facility] Medigap Part B [id number] 12 Self [id number] Medicare [facility] Medicare Primary [id number] Self [id number] [facility] Medicare Commercial [id number] Self [id number] [facility] Medigap Part B [id number] 12 Self [id number] Medicare [facility] Medicare Primary [id number] Self [id number] MEDICARE COMPLETE [id number] SP [id number] Today's Options PFFS Commercial [id number] Self [id number] Medicare (Part B) Medicare Primary [id number] Self [id number] Medicaid Spenddown Medigap Part B [id number] Self [id number] Medicaid Medigap Part B [id number] Self [id number] [facility] Medigap Part B [id number] Self [id number] U/HC Medicare Solutions Commercial [id number] Self [id number] MEDICARE COMPLETE [id number] SP [id number] Today's Options PFFS Commercial [id number] Self [id number] Medicare (Part B) Medicare Primary [id number] Self [id number] Medicaid Spenddown Medigap Part B [id number] Self [id number] Medicaid Medigap Part B [id number] Self [id number] [facility] Medigap Part B [id number] Self [id number] Today's Options PFFS Commercial [id number] Self [id number] Medicare (Part B) Medicare Primary [id number] Self [id number] Medicaid Spenddown Medigap Part B [id number] Self [id number] Medicaid Medigap Part B [id number] Self [id number] [id number] [facility] Medigap Part B [id number] Self [id number] UNITED [employer]CARE MGD MEDICARE [id number] SP [id number] Medicare (Part B) Medicare Primary Self [employer]'s Options PFFS Commercial Self Medicaid Spenddown Medigap Part B Self Medicaid Medigap Part B 1 1 Self 1 1 [facility] Medigap Part B Self U/HC Medicare Solutions Commercial Self [employer] Medicare Commercial Self [facility] Medigap Part B Self Medicare [facility] Medicare Primary Self MEDICARE COMPLETE-[facility] O [id number] S [id number] MEDICARE COMPLETE [id number] SP [id number] UNITED [employer]CARE MGD MEDICARE [id number] SP [id number] Medicare Medicare Primary Self Medicaid Medigap Part B Self [employer] [id number] SP [id number] UNITED [employer]CARE MGD MEDICARE [id number] SP [id number] [employer] [id number] SP [id number] MEDICARE [id number] SP [id number] B [employer] OPTIONS [id number] SP [id number] MEDICARE [id number] SP [id number] B [id number] B Problems, Conditions, and Diagnoses Code Display Name Description Problem Type Effective Dates Data Source(s) Z95.2 Presence of prosthetic heart valve Z95.2 - Presence of prosthetic heart valve Diagnosis 12/02/2020 08:34:00 AM EST [facility] E11.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 E11.39 - Type 2 diabetes mellitus with other diabetic ophthalmic complication Diagnosis 08/30/2020 07:25:00 AM EDT [facility] M25.552 Pain in left hip M25.552 - Pain in left hip Diagnosis 08/11/2020 01:29:00 PM EDT [facility] Z85.3 Personal history of malignant neoplasm o f breast Z85.3 - Personal history of malignant neoplasm of breast Diagnosis 05/10/2020 02:06:00 PM EDT [facility] E78.2 Mixed hyperlipidemia E78.2 - Mixed hyperlipidemia Diag nosis 02/10/2020 08:29:00 AM EDT [facility] Surgeries/Procedures Procedure Description Date Indications Data Source(s) Anticoagulant MGMT For Patient Taking Warfarin, Inc Review & Intr 12/03/2020 12:00:00 AM EST [facility] ([facility]) Anticoagulant MGMT For Patient Taking Warfarin, Inc Review & Intr 11/18/2020 12:00:00 AM EST [facility] ([facility]) Anticoagulant MGMT For Patient Taking Warfarin, Inc Review & Intr 11/09/2020 12:00:00 AM EST [facility] ([facility]) Anticoagulant MGMT For Patient Taking Warfarin, Inc Review & Intr 10/13/2020 12:00:00 AM EST [facility] ([facility]) Anticoagulant MGMT For Patient Taking Warfarin, Inc Review & Intr 09/14/2020 12:00:00 AM EDT [facility] ([facility]) Anticoagulant MGMT For Patient Taking Warfarin, Inc Review & Intr 09/07/2020 12:00:00 AM EDT [facility] ([facility]) Injection, vitamin b-12 cyanocobalamin, up to 1000 mcg 09/06/2020 12:00:00 AM EDT eCW1 ([facility]) Immunization: Flublok Quadrivalent (18 years & older) 0.5mL IM (Influenza) 09/06/2020 12:00:00 AM EDT eCW1 ([facility]) Anticoagulant MGMT For Patient Taking Warfarin, Inc Review & Intr 09/02/2020 12:00:00 AM EDT [facility] ([facility]) Anticoagulant MGMT For Patient Taking Warfarin, Inc Review & Intr 08/18/2020 12:00:00 AM EDT [facility] ([facility]) Anticoagulant MGMT For Patient Taking Warfarin, Inc Review & Intr 08/12/2020 12:00:00 AM EDT [facility] ([facility]) Anticoagulant MGMT For Patient Taking Warfarin, Inc Review & Intr 07/23/2020 12:00:00 AM EDT [facility] ([facility]) Anticoagulant MGMT For Patient Taking Warfarin, Inc Review & Intr 07/08/2020 12:00:00 AM EDT [facility] ([facility]) ECG ROUTINE ECG W/LEAST 12 LDS W/I&R 06/10/2020 12:00: 00 AM EDT [facility] ([facility]) Anticoagulant MGMT For Patient Taking Warfarin, Inc Review & Intr 06/04/2020 12:00:00 AM EDT [facility] ([facility]) Anticoagulant MGMT For Patient Taking Warfarin, Inc Review & Intr 05/06/2020 12:00:00 AM EDT [facility] ([facility]) Anticoagulant MGMT For Patient Taking Warfarin, Inc Review & Intr 04/07/2020 12:00:00 AM EDT [facility] ([facility]) Anticoagulant MGMT For Patient Taking Warfarin, Inc Review & Intr 03/09/2020 12:00:00 AM EDT [facility] ([facility]) PHYSICIAN TELEPHONE EVALUATION 21-30 MIN 03/04/2020 12 :00:00 AM EDT [email or web address] ([facility]) Anticoagulant MGMT For Patient Taking Warfarin, Inc Review & Intr 02/10/2020 12:00:00 AM EDT [facility] ([facility]) Anticoagulant MGMT For Patient Taking Warfarin, Inc Review & Intr 01/13/2020 12:00:00 AM EST [facility] ([facility]) Anticoagulant MGMT For Patient Taking Warfarin, Inc Review & Intr 12/15/2019 12:00:00 AM EST [facility] ([facility]) Anticoagulant MGMT For Patient Taking Warfarin, Inc Review & Intr 12/02/2019 12:00:00 AM EST [facility] ([facility]) Results ID Date Data Source [id number] 01/04/2021 01:23:00 PM EST [facility] Name Value Range Interpretation Code Description Data Fiordaliza rce(s) Supporting Document(s) WHITE BLOOD COUNT 7.92 10^3/uL 4.00-10.50 N [facility] RED BLOOD COUNT 2.33 10^6/uL 3.90-5.20 [facility] HEMOGLOBIN 7.1 G/DL 11.5-15.6 L [facility] HEMATOCRIT 22.9 % 35.0-46.0 L [facility] MCV 98.3 FL 80.0-100.0 N [facility] MCH 30.5 PG 27.0-34.0 N [facility] MCHC 31.0 G/DL 32-36 L [facility] RDW 16.8 % 11.5-14.5 H [facility] PLATELET COUNT 236 10^3/uL 130-400 N [facility] MPV 11.3 FL 8.7-13.2 N [facility] GRAN % (AUTO) 74.4 % 42.0-75.0 N [facility] LYMPH % (AUTO) 11.5 % 20.0-51.0 L [facility] MONO % (AUTO) 8.3 % 2.0-15.0 N [facility] EOS % (AUTO) 4.4 % 0.0-11.0 N [facility] [employer] BASO % (AUTO) 0.9 % 0.0-2.0 N [facility] IG % (AUTO) 0.5 % 1.00-5.00 [facility] IG # (AUTO) 0.0 10^3/uL <0.5 [facility] GRAN # (AUTO) 5.89 10^3/uL 1.50-6.50 N [facility] LYMPH # (AUTO) 0.9 k/uL 1.0-5.0 L [facility] MONO # (AUTO) 0.66 k/uL 0.20-1.50 N [facility] EOS # (AUTO) 0.35 10^3/uL 0.00-1.10 N [facility] BASO # (AUTO) 0.07 10^3/uL 0.00-0.20 N [facility] ID Date Data Source [id number] 01/04/2021 02:20:00 PM [facility] Name Value Range Interpretation Code Description Data Fiordaliza rce(s) Supporting Document(s) SODIUM 140 MEQ/L 135-145 N [facility] POTASSIUM 4.0 MEQ/L 3.5-5.3 N [facility] CHLORIDE 103 MEQ/L 94-110 N [facility] CARBON DIOXIDE 27 MEQ/L 22-33 N [facility] ANION GAP 14 5-16 N [facility] BLOOD UREA NITRO 83 MG/DL 7-25 H [facility] CREATININE 2.4 MG/DL 0.6-1.4 H [facility] GFR 19.7 ML/MIN [facility] Stage G4 - Severely decreased kidney fu nction The GFR is an estimate of the Glomerular Filtration Rate. It is an aid to assess a patient's renal function. It is not a conclusive diagnosis of kidney disease. GFR normal is >=90 The MDRD GFR calculation is considered valid between the ages of 18 and 75 years only. BUN/CREAT RATIO 34 8-36 N [facility] GLUCOSE 205 MG/DL 70-100 H [facility] CA 8.6 MG/DL 8.7-10.5 L [facility] ID Date Data Source [id number] 01/04/2021 02:20:00 PM [facility] Name Value Range Interpretation Code Description Data Fiordaliza rce(s) Supporting Document(s) MAGNESIUM 1.5 mg/dl 1.8-2.4 L [facility] ID Date Data Source [id number] 01/04/2021 01:30:00 PM [facility] Name Value Range Interpretation Code Description Data Fiordaliza rce(s) Supporting Document(s) PROTHROMBIN TIME 29.4 SEC 8.9-13.3 H [facility] INR 2.6 0.0-3.6 N [facility] Therapeutic Values of INR are generally between 2.0-3.0 except for Prosthetic Valves (High Risk 2.5-3.5) The use of INR is restricted to patient on stable oral anticoagulant therapy. ID Date Data Source [id number] 12/03/2020 08:11:00 AM EST [facility] Name Value Range Interpretation Code Description Data Fiordaliza rce(s) Supporting Document(s) White Blood Count 6.7 4.3-10.9 [facility] ([facility]) Red Blood Count 3.09 4.70-6.20 [facility] ([facility]) Platelets 227 130-400 [facility] ([facility]) Hemoglobin 9.0 13.0-17.0 [facility] ([facility]) Hematocrit 28.7 39.0-50.0 [facility] ([facility]) ID Date Data Source [id number] 12/03/2020 08:11:00 AM EST [facility] ([facility]) Name Value Range Interpretation Code Description Data Fiordaliza rce(s) Supporting Document(s) Glucose 262 70-100 [facility] ([facility]) Blood Urea Nitrogen 45.3 5-21 [facility] ([facility]) Creatinine 2.4 0.6-1.5 [facility] ([facility]) Glomerular filtration rate/1.73 sq M.pre dicted [Volume Rate/Area] in Serum or Plasma by Creatinine-based formula (MDRD) 20 [facility] ([facility]) Sodium 139.4 136-146 [facility] ([facility]) Potassium 4.07 3.5-5.3 [facility] ([facility]) Carbon Dioxide 30.7 20-32 [facility] ([facility]iol [facility]) Chloride 95.9 98-110 [facility] ([facility]) Phosphorus 3.4 [facility] ([facility]) Calcium 8.7 8.4-10.4 [facility] ([facility]) Albumin 3.6 3.5-4.7 [facility] ([facility]) ID Date Data Source [id number] 12/02/2020 08:49:00 AM EST [facility] ([facility]) Name Value Range Interpretation Code Description Data Fiordaliza rce(s) Supporting Document(s) INR in Platelet poor plasma by Coagulation assay 3.2 0.0-3.6 [facility] ([facility]) Therapeutic Values of INR are generally between 2.0-3.0 except for Prosthetic Valves (High Risk 2.5-3.5) The use of INR is restricted to patient on stable oral anticoagulant therapy. Prothrombin time (PT) 36.0 SEC 8.9-13.3 [facility] ([facility]) ID Date Data Source [id number] 12/02/2020 01:32:00 PM [facility] Name Value Range Interpretation Code Description Data Fiordaliza rce(s) Supporting Document(s) PROTHROMBIN TIME 36.0 SEC 8.9-13.3 H [facility] INR 3.2 0.0-3.6 N [facility] Therapeutic Values of INR are generally between 2.0-3.0 except for Prosthetic Valves (High Risk 2.5-3.5) The use of INR is restricted to patient on stable oral anticoagulant therapy. ID Date Data Source [id number] 11/17/2020 07:57:00 AM EST [facility] Name Value Range Interpretation Code Description Data Fiordaliza rce(s) Supporting Document(s) INR in Platelet poor plasma by Coagulation assay 3.5 0.0-3.6 [facility] ([facility]) Therapeutic Values of INR are generally between 2.0-3.0 except for Prosthetic Valves (High Risk 2.5-3.5) The use of INR is restricted to patient on stable oral anticoagulant therapy. Prothrombin time (PT) 39.0 SEC 8.9-13.3 [facility] ([facility]) ID Date Data Source [id number] 11/17/2020 02:22:00 PM [facility] Name Value Range Interpretation Code Description Data Fiordaliza rce(s) Supporting Document(s) PROTHROMBIN TIME 39.0 SEC 8.9-13.3 H [facility] INR 3.5 0.0-3.6 N [facility] Therapeutic Values of INR are generally between 2.0-3.0 except for Prosthetic Valves (High Risk 2.5-3.5) The use of INR is restricted to patient on stable oral anticoagulant therapy. ID Date Data Source [id number] 11/08/2020 07:48:00 AM EST [facility] ([facility]) Name Value Range Interpretation Code Description Data Fiordaliza rce(s) Supporting Document(s) Prothrombin time (PT) 19.3 SEC 8.9-13.3 [facility] ([facility]) INR in Platelet poor plasma by Coagulation assay 1.7 0.0-3.6 [facility] ([facility]) Therapeutic Values of INR are generally between 2.0-3.0 except for Prosthetic Valves (High Risk 2.5-3.5) The use of INR is restricted to patient on stable oral anticoagulant therapy. ID Date Data Source [id number] 11/08/2020 01:37:00 PM EST [employer] Name Value Range Interpretation Code Description Data Fiordaliza rce(s) Supporting Document(s) PROTHROMBIN TIME 19.3 SEC 8.9-13.3 H [facility] INR 1.7 0.0-3.6 N [facility] Therapeutic Values of INR are generally between 2.0-3.0 except for Prosthetic Valves (High Risk 2.5-3.5) The use of INR is restricted to patient on stable oral anticoagulant therapy. ID Date Data Source [id number] 2020 07:42:00 AM EST [facility] Name Value Range Interpretation Code Description Data Fiordaliza rce(s) Supporting Document(s) Prothrombin time (PT) 27.3 SEC 8.9-13.3 [facility] ([facility]) INR in Platelet poor plasma by Coagulation assay 2.4 0.0-3.6 [facility] ([facility]) Therapeutic Values of INR are generally between 2.0-3.0 except for Prosthetic Valves (High Risk 2.5-3.5) The use of INR is restricted to patient on stable oral anticoagulant therapy. ID Date Data Source [id number] 2020 01:45:00 PM [facility] Name Value Range Interpretation Code Description Data Fiordaliza rce(s) Supporting Document(s) PROTHROMBIN TIME 27.3 SEC 8.9-13.3 H [facility] INR 2.4 0.0-3.6 N [facility] Therapeutic Values of INR are generally between 2.0-3.0 except for Prosthetic Valves (High Risk 2.5-3.5) The use of INR is restricted to patient on stable oral anticoagulant therapy. ID Date Data Source [id number] 09/14/2020 08:01:00 AM EDT [facility] ([facility] Name Value Range Interpretation Code Description Data Fiordaliza rce(s) Supporting Document(s) INR in Platelet poor plasma by Coagulation assay 2.3 0.0-3.6 [facility]) Therapeutic Values of INR are generally between 2.0-3.0 except for Prosthetic Valves (High Risk 2.5-3.5) The use of INR is restricted to patient on stable oral anticoagulant therapy. Prothrombin time (PT) 25.9 SEC 8.9-13.3 [facility] ([facility]) ID Date Data Source [id number] 09/14/2020 01:39:00 PM EDT [facility] Name Value Range Interpretation Code Description Data Fiordaliza rce(s) Supporting Document(s) PROTHROMBIN TIME 25.9 SEC 8.9-13.3 H [facility] INR 2.3 0.0-3.6 N [facility] Therapeutic Values of INR are generally between 2.0-3.0 except for Prosthetic Valves (High Risk 2.5-3.5) The use of INR is restricted to patient on stable oral anticoagulant therapy. ID Date Data Source [id number] 09/06/2020 10:35:00 AM EDT [facility] ([facility]) Name Value Range Interpretation Code Description Data Fiordaliza rce(s) Supporting Document(s) Prothrombin Time 23.1 s 12.5-14.3 [facility] ([facility]) Inr 2.00 [facility] ([facility]) THERAPUTIC HUMAN INR VALUES INDICATIONS NORMAL RANGES PROPHYLAXIS/TREATMENT OF: VENOUS THROMBOSIS 2.0-3.0 PULMONARY EMBOLISM 2.0-3.0 PREVENTION OF SYSTEMIC EMBOLISM FROM: TISSUE HEART VALVES 2.0-3.0 ACUTE MYOCARDIAL INFARCTION 2.0-3.0 VALVULAR HEART DISEASE 2.0-3.0 ATRIAL FIBRILLATION 2.0-3.0 MECHANICAL VALVES(HIGH RISK) 2.5-3.5 RECURRENT MYOCARDIAL INFARCTION 2.5-3.5 ID Date Data Source [id number] 09/01/2020 08:10:00 AM EDT [facility] ([facility]) Name Value Range Interpretation Code Description Data Fiordaliza rce(s) Supporting Document(s) Prothrombin time (PT) 56.1 SEC 8.9-13.3 [facility] ([facility]) INR in Platelet poor plasma by Coagulation assay 5.0 0.0-3.6 Above upper panic limits MANUEL ([facility]) Critical Results called to Britany Couch by [id number] at 1351 on 09/01/20 Therapeutic Values of INR are generally between 2.0-3.0 except for Prosthetic Valves (High Risk 2.5-3.5) The use of INR is restricted to patient on stable oral anticoagulant therapy. ID Date Data Source [id number] 09/01/2020 01:55:00 PM EDT [facility] Name Value Range Interpretation Code Description Data Fiordaliza rce(s) Supporting Document(s) PROTHROMBIN TIME 56.1 SEC 8.9-13.3 H [facility] [employer] INR 5.0 0.0-3.6 [facility] Critical Results called to Britany C by [id number] at 1351 on 09/01/20 Therapeutic Values of INR are generally between 2.0-3.0 except for Prosthetic Valves (High Risk 2.5-3.5) The use of INR is restricted to patient on stable oral anticoagulant therapy. ID Date Data Source [id number] 08/30/2020 02:25:00 PM EDT [facility] Name Value Range Interpretation Code Description Data Fiordaliza rce(s) Supporting Document(s) SODIUM 137 MEQ/L 135-145 N [facility] [employer] POTASSIUM 4.3 MEQ/L 3.5-5.3 [facility] [employer] CHLORIDE 103 MEQ/L 94-110 N [facility] [employer] CARBON DIOXIDE 28 MEQ/L 22-33 N [facility] ANION GAP 10 5-16 N [facility] [employer] BLOOD UREA NITRO 62 MG/DL 7-25 [facility] CREATININE 2.3 MG/DL 0.6-1.4 H [facility] GFR 20.7 ML/MIN [facility] Stage G4 - Severely decreased kidney fu nction The GFR is an estimate of the Glomerular Filtration Rate. It is an aid to assess a patient's renal function. It is not a conclusive diagnosis of kidney disease. GFR normal is >=90 The MDRD GFR calculation is considered valid between the ages of 18 and 75 years only. BUN/CREAT RATIO 26 8-36 [facility] [employer] GLUCOSE 156 MG/DL 70-100 H [facility] [employer] CA 9.1 MG/DL 8.7-10.5 [facility] BILIRUBIN,TOTAL 0.4 MG/DL 0.1-1.3 N [facility] AST 27 U/L 5-40 N [facility] ALT 23 U/L 5-48 N [facility] ALKALINE PHOSPHATASE 104 U/L 40-140 N [facility] TOTAL PROTEIN 6.5 G/DL 5.9-8.3 N [facility] ALBUMIN 4.0 G/DL 3.0-5.1 N [facility] GLOBULIN 2.5 G/DL 1.5-3.5 N [facility] ALB/GLOB RATIO 1.6 G/DL 1.0-3.0 N [facility] ID Date Data Source [id number] 08/30/2020 02:25:00 PM [facility] Name Value Range Interpretation Code Description Data Fiordaliza rce(s) Supporting Document(s) GLYCOSYLATED HGBA1C 7.1 % 4.1-6.5 H [facility] ID Date Data Source [id number] 08/30/2020 02:25:00 PM T [facility] Name Value Range Interpretation Code Description Data Fiordaliza rce(s) Supporting Document(s) TRIGLYCERIDES 116 MG/DL 45-150 N [facility] CHOLESTEROL 165 MG/DL 125-200 [facility] LDL CHOLESTEROL 80 MG/DL 50-130 N [facility] HDL CHOLESTEROL 62 MG/DL 32-96 [facility] CHOL/HDL RATIO 2.7 0-4.3 N [facility] ID Date Data Source [id number] 08/30/2020 02:25:00 PM [facility] Name Value Range Interpretation Code Description Data Fiordaliza rce(s) Supporting Document(s) VITAMIN B12 1240 PG/ML 211-2000 N [facility] ID Date Data Source [id number] 08/30/2020 02:25:00 PM [facility] Value Range Interpretation Code Description Data Fiordaliza rce(s) Supporting Document(s) Vitamin D,25-HYDROXY 31.1 ng/ml 30-100 N [facility] ealt Vitamin D Status Range De ficiency <20 ng/ml Insufficiency 20-29.9 ng/ml Sufficiency 30-100 ng/ml Toxicity >100 ng/ml Patients should not be tested for 72 hours post fluorescein dye angiography. A false elevation of result may occur. ID Date Data Source [id number] 08/17/2020 08:32:00 AM EDT [facility] Name Value Range Interpretation Code Description Data Fiordaliza rce(s) Supporting Document(s) Prothrombin time (PT) 39.9 SEC 8.9-13.3 [facility] ([facility]) INR in Platelet poor plasma by Coagulation assay 3.5 0.0-3.6 [facility] ([facility]) Therapeutic Values of INR are generally between 2.0-3.0 except for Prosthetic Valves (High Risk 2.5-3.5) The use of INR is restricted to patient on stable oral anticoagulant therapy. ID Date Data Source [id number] 08/17/2020 10:04:00 AM EDT [facility] Name Value Range Interpretation Code Description Data Fiordaliza rce(s) Supporting Document(s) PROTHROMBIN TIME 39.9 SEC 8.9-13.3 H [facility] INR 3.5 0.0-3.6 N [facility] Therapeutic Values of INR are generally between 2.0-3.0 except for Prosthetic Valves (High Risk 2.5-3.5) The use of INR is restricted to patient on stable oral anticoagulant therapy. ID Date Data Source [id number] 08/11/2020 02:21:[place] [address] Patient Name: Denisse Greene Exam Date: 08/11/20 : 1945 Ordering Doctor: Georgi Godfrey MD Attending Doctor: Georgi Godfrey MD CC: LEFT HIP 2 VIEWS INDICATION: Left hip pain, history breast cancer COMPARISON/CORRELATION: No existing prior relevant imaging studies are available. FINDINGS/IMPRESSION: No fracture, dislocation or destructive bone lesion. 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 Professional interpretation performed at [facility] . End of diagnostic report: [id number] Signed: Eliseo Mancini MD 08/12/20 1027 Interpreted by: Valentina Mancini ronTranscribed by: Eliseo Mancini Name Value Range Interpretation Code Description Data Fiordaliza rce(s) Supporting Document(s) ID Date Data Source [id number] 08/12/2020 08:05:00 AM EDT [facility] Name Value Range Interpretation Code Description Data Fiordaliza rce(s) Supporting Document(s) PROTHROMBIN TIME 66.0 SEC 8.9-13.3 [facility] INR 5.8 0.0-3.6 [facility] Critical Results given to ED per Ba rb by [id number] at 2017 08/11/20 called to Rachelle(office)at 8:05am 08/12/20 --- 08/12/20804 --- INR previously reported as: 5.8 [facility] Critical Results given to ED per Alina by [id number] at 201608/11/20 Therapeutic Values of INR are generally between 2.0-3.0 except for Prosthetic Valves (High Risk 2.5-3.5) The use of INR is restricted to patient on stable oral anticoagulant therapy. ID Date Data Source [id number] 08/11/2020 01:28:00 PM EDT [facility]) Name Value Range Interpretation Code Description Data Fiordaliza rce(s) Supporting Document(s) Prothrombin time (PT) 66.0 SEC 8.9-13.3 [facility] ([facility]) INR in Platelet poor plasma by Coagulation assay 5.8 0.0-3.6 Above upper panic limits [facility] ([facility]) Critical Results given to ED per Bar b by [id number] at 201608/11/20 called to Rachelle(office)at 8:05 am 08/12/20 --- 08/12/20804 --- INR previously reported as: 5.8 [facility] Critical Results given to ED per Alina by [id number] at 2017 08/11/20 Therapeutic Values of INR are generally between 2.0-3.0 except for Prosthetic Valves (High Risk 2.5-3.5) The use of INR is restricted to patient on stable oral anticoagulant therapy. ID Date Data Source [id number] 07/20/2020 01:41:00 PM EDT [facility] Name Value Range Interpretation Code Description Data Fiordaliza rce(s) Supporting Document(s) PROTHROMBIN TIME 24.5 SEC 8.9-13.3 H [facility] INR 2.2 0.0-3.6 N [facility] Therapeutic Values of INR are generally between 2.0-3.0 except for Prosthetic Valves (High Risk 2.5-3.5) The use of INR is restricted to patient on stable oral anticoagulant therapy. ID Date Data Source [id number] 07/20/2020 07:48:00 AM EDT [facility] ([facility] Name Value Range Interpretation Code Description Data Fiordaliza rce(s) Supporting Document(s) Prothrombin time (PT) 24.5 SEC 8.9-13.3 [facility] ([facility]) INR in Platelet poor plasma by Coagulation assay 2.2 0.0-3.6 [facility] ([facility]) Therapeutic Values of INR are generally between 2.0-3.0 except for Prosthetic Valves (High Risk 2.5-3.5) The use of INR is restricted to patient on stable oral anticoagulant therapy. ID Date Data Source [id number] 07/05/2020 01:58:00 PM EDT [facility] Name Value Range Interpretation Code Description Data Fiordaliza rce(s) Supporting Document(s) PROTHROMBIN TIME 21.5 SEC 8.9-13.3 H [facility] INR 1.9 0.0-3.6 N [facility] Therapeutic Values of INR are generally between 2.0-3.0 except for Prosthetic Valves (High Risk 2.5-3.5) The use of INR is restricted to patient on stable oral anticoagulant therapy. ID Date Data Source [id number] 07/05/2020 07:29:00 AM EDT [facility] Name Value Range Interpretation Code Description Data Fiordaliza rce(s) Supporting Document(s) INR in Platelet poor plasma by Coagulation assay 1.9 0.0-3.6 [facility] ([facility]) Therapeutic Values of INR are generally between 2.0-3.0 except for Prosthetic Valves (High Risk 2.5-3.5) The use of INR is restricted to patient on stable oral anticoagulant therapy. Prothrombin time (PT) 21.5 SEC 8.9-13.3 [facility] ([facility]) ID Date Data Source [id number] 06/03/2020 07:24:00 AM EDT [facility] ([facility]) Name Value Range Interpretation Code Description Data Fiordaliza rce(s) Supporting Document(s) Prothrombin time (PT) 34.4 SEC 8.9-13.3 [facility] ([facility]) INR in Platelet poor plasma by Coagulation assay 3.0 0.0-3.6 [facility] ([facility]) Therapeutic Values of INR are generally between 2.0-3.0 except for Prosthetic Valves (High Risk 2.5-3.5) The use of INR is restricted to patient on stable oral anticoagulant therapy. ID Date Data Source [id number] 06/03/2020 01:55:00 PM T [facility] Name Value Range Interpretation Code Description Data Fiordaliza rce(s) Supporting Document(s) PROTHROMBIN TIME 34.4 SEC 8.9-13.3 H [facility] INR 3.0 0.0-3.6 N [facility] Therapeutic Values of INR are generally between 2.0-3.0 except for Prosthetic Valves (High Risk 2.5-3.5) The use of INR is restricted to patient on stable oral anticoagulant therapy. ID Date Data Source [id number] 05/26/2020 03:22:00 PM EDT [facility] ([facility]) Name Value Range Interpretation Code Description Data Fiordaliza rce(s) Supporting Document(s) Albumin [Mass/volume] in Serum or Plasma 3.9 [facility] ([facility]iology [facility]) Chloride [Moles/volume] in Serum or Plasma 103.2 98-110 [facility] ([facility]) Carbon dioxide, total [Moles/volume] in Serum or Plasma 21.5 20 -32 [facility] ([facility]) Urea nitrogen [Mass/volume] in Serum or Plasma 80.7 5-21 [facility] ([facility]) Calcium 8.89 8.4-10.4 [facility] (Cardiology [facility]) Phosphate [Moles/volume] in Serum or Plasma 4.43 [facility] ([facility]) ID Date Data Source [id number] 05/26/2020 03:22:00 PM EDT [facility] Name Value Range Interpretation Code Description Data Fiordaliza rce(s) Supporting Document(s) Hemoglobin 10.5 [facility] White Blood Count 5.9 4.0-10.9 [facility] ([facility]) Platelets 235 150-450 [facility] ([facility]) Red Blood Count 3.43 4.70-6.20 [facility] ([facility]) Hematocrit 32.1 [facility] ([facility]) ID Date Data Source [id number] 05/26/2020 09:42:00 AM EDT [facility] ([facility]) Name Value Range Interpretation Code Description Data Fiordaliza rce(s) Supporting Document(s) White Blood Count 5.9 4.3-10.9 [facility] ([facility]) Hemoglobin 10.5 13.0-17.0 [facility] ([facility]) Red Blood Count 3.43 4.70-6.20 [facility] ([facility]) Platelets 235 130-400 [facility] ([facility]) Hematocrit 32.1 39.0-50.0 [facility] ([facility]) ID Date Data Source [id number] 05/26/2020 09:42:00 AM EDT [facility] ([facility]) Name Value Range Interpretation Code Description Data Fiordaliza rce(s) Supporting Document(s) Glucose 157 70-100 [facility] ([facility]) Blood Urea Nitrogen 80.7 5-21 [facility] ([facility]) Creatinine 2.35 0.6-1.5 [facility] ([facility]) Glomerular filtration rate/1.73 sq M.pre dicted [Volume Rate/Area] in Serum or Plasma by Creatinine-based formula (MDRD) 20 [facility] Potassium 5.30 3.5-5.3 [facility] ([facility]) Chloride 103.2 98-110 [facility] ([facility] Sodium 135.4 136-146 [facility] ([facility] Carbon Dioxide 21.5 20-32 [facility] ([facility]) Phosphorus 4.43 [facility] ([facility]) Calcium 8.89 8.4-10.4 [facility] ([facility] Albumin 3.9 3.5-4.7 [facility] ([facility] ID Date Data Source [id number] 05/10/2020 05:28:00 PM EDT [facility] Name Value Range Interpretation Code Description Data Fiordaliza rce(s) Supporting Document(s) WHITE BLOOD COUNT 7.08 10^3/uL 4.00-10.50 [facility] RED BLOOD COUNT 3.27 10^6/uL 3.90-5.20 [facility] HEMOGLOBIN 10.0 G/DL 11.5-15.6 L [facility] HEMATOCRIT 31.3 % 35.0-46.0 L [facility] MCV 95.7 FL 80.0-100.0 N [facility] MCH 30.6 PG 27.0-34.0 N [facility] MCHC 31.9 G/DL 32-36 L [facility] RDW 15.7 % 11.5-14.5 H [facility] PLATELET COUNT 221 10^3/uL 130-400 N [facility] MPV 11.6 FL 8.7-13.2 N [facility] GRAN % (AUTO) 66.2 % 42.0-75.0 N [facility] LYMPH % (AUTO) 17.4 % 20.0-51.0 L [facility] MONO % (AUTO) 11.6 % 2.0-15.0 N [facility] EOS % (AUTO) 3.8 % 0.0-11.0 N [facility] BASO % (AUTO) 0.7 % 0.0-2.0 N [facility] IG % (AUTO) 0.3 % 1.00-5.00 [facility] IG # (AUTO) 0.0 10^3/uL <0.5 [facility] GRAN # (AUTO) 4.69 10^3/uL 1.50-6.50 N [facility] LYMPH # (AUTO) 1.2 k/uL 1.0-5.0 N [facility] MONO # (AUTO) 0.82 k/uL 0.20-1.50 N [facility] EOS # (AUTO) 0.27 10^3/uL 0.00-1.10 N [facility] BASO # (AUTO) 0.05 10^3/uL 0.00-0.20 N [facility] ID Date Data Source [id number] 05/10/2020 05:38:00 PM EDT [facility] Name Value Range Interpretation Code Description Data Fiordaliza rce(s) Supporting Document(s) SODIUM 138 MEQ/L 135-145 N [facility] POTASSIUM 5.3 MEQ/L 3.5-5.3 N [facility] CHLORIDE 107 MEQ/L 94-110 N [facility] CARBON DIOXIDE 18 MEQ/L 22-33 L [facility] ANION GAP 18 5-16 H [facility] BLOOD UREA NITRO 82 MG/DL 7-25 H [facility] CREATININE 2.4 MG/DL 0.6-1.4 H [facility] GFR 19.7 ML/MIN [facility] Stage G4 - Severely decreased kidney fu nction The GFR is an estimate of the Glomerular Filtration Rate. It is an aid to assess a patient's renal function. It is not a conclusive diagnosis of kidney disease. GFR normal is >=90 The MDRD GFR calculation is considered valid between the ages of 18 and 75 years only. BUN/CREAT RATIO 34 8-36 N [facility] GLUCOSE 90 MG/DL 70-100 [facility] CA 9.2 MG/DL 8.7-10.5 [facility] BILIRUBIN,TOTAL 0.4 MG/DL 0.1-1.3 [facility] AST 23 U/L 5-40 [facility] ALT 16 U/L 5-48 [facility] ALKALINE PHOSPHATASE 95 U/L 40-140 [facility]th TOTAL PROTEIN 6.5 G/DL 5.9-8.3 N [facility] ALBUMIN 3.9 G/DL 3.0-5.1 [facility] GLOBULIN 2.6 G/DL 1.5-3.5 [facility] ALB/GLOB RATIO 1.5 G/DL 1.0-3.0 [facility] ID Date Data Source [id number] 05/05/2020 07:03:00 AM EDT [facility] ([facility]) Name Value Range Interpretation Code Description Data Fiordaliza rce(s) Supporting Document(s) Prothrombin time (PT) 34.4 SEC 8.9-13.3 [facility] (Cardiology [facility]) INR in Platelet poor plasma by Coagulation assay 3.0 0.0-3.6 [facility] Therapeutic Values of INR are generally between 2.0-3.0 except for Prosthetic Valves (High Risk 2.5-3.5) The use of INR is restricted to patient on stable oral anticoagulant therapy. ID Date Data Source [id number] 05/05/2020 01:44:00 PM [facility] [employer] Name Value Range Interpretation Code Description Data Fiordlaiza rce(s) Supporting Document(s) PROTHROMBIN TIME 34.4 SEC 8.9-13.3 H [facility] INR 3.0 0.0-3.6 N [facility] Therapeutic Values of INR are generally between 2.0-3.0 except for Prosthetic Valves (High Risk 2.5-3.5) The use of INR is restricted to patient on stable oral anticoagulant therapy. ID Date Data Source [id number] 04/06/2020 01:36:00 PM [facility] [employer] Name Value Range Interpretation Code Description Data Fiordaliza rce(s) Supporting Document(s) PROTHROMBIN TIME 28.9 SEC 8.9-13.3 H [facility] INR 2.6 0.0-3.6 N [facility] Therapeutic Values of INR are generally between 2.0-3.0 except for Prosthetic Valves (High Risk 2.5-3.5) The use of INR is restricted to patient on stable oral anticoagulant therapy. ID Date Data Source [id number] 04/06/2020 07:07:00 AM EDT [facility] ([facility]) Name Value Range Interpretation Code Description Data Fiordaliza rce(s) Supporting Document(s) INR in Platelet poor plasma by Coagulation assay 2.6 0.0-3.6 [facility] Therapeutic Values of INR are generally between 2.0-3.0 except for Prosthetic Valves (High Risk 2.5-3.5) The use of INR is restricted to patient on stable oral anticoagulant therapy. Prothrombin time (PT) 28.9 SEC 8.9-13.3 [facility] ([facility]) ID Date Data Source [id number] 03/08/2020 09:20:00 AM EDT [facility] ([facility]) Name Value Range Interpretation Code Description Data Fiordaliza rce(s) Supporting Document(s) INR in Platelet poor plasma by Coagulation assay 2.9 0.0-3.6 [facility] ([facility]) Therapeutic Values of INR are generally between 2.0-3.0 except for Prosthetic Valves (High Risk 2.5-3.5) The use of INR is restricted to patient on stable oral anticoagulant therapy. Prothrombin time (PT) 33.2 SEC 8.9-13.3 [facility] ([facility]) ID Date Data Source [id number] 03/08/2020 01:28:00 PM T [facility] Name Value Range Interpretation Code Description Data Fiordaliza rce(s) Supporting Document(s) PROTHROMBIN TIME 33.2 SEC 8.9-13.3 H [facility] INR 2.9 0.0-3.6 N [facility] Therapeutic Values of INR are generally between 2.0-3.0 except for Prosthetic Valves (High Risk 2.5-3.5) The use of INR is restricted to patient on stable oral anticoagulant therapy. ID Date Data Source [id number] 02/25/2020 12:38:00 PM EDT [facility] ([facility]) Name Value Range Interpretation Code Description Data Fiordaliza rce(s) Supporting Document(s) White Blood Count 7.8 4.0-10.0 [facility] ([facility]) Red Blood Count 3.47 4.00-5.40 [facility] (Cardio logy [facility]) Platelets 224 172-450 [facility] (Cardiology [facility]) Hemoglobin 10.7 12.0-16.0 [facility] ([facility]iology [facility]) Hematocrit 33.6 36.0-47.0 [facility] ([facility]) ID Date Data Source [id number] 02/25/2020 12:38:00 PM EDT [facility] ([facility]) Name Value Range Interpretation Code Description Data Fiordaliza rce(s) Supporting Document(s) Glucose 187 70-100 [facility] ([facility]) Blood Urea Nitrogen 87.4 7-25 [facility] (Ca rdiology [facility]) Creatinine 2.45 0.6-1.4 [facility] ([facility]) Glomerular filtration rate/1.73 sq M.pre dicted [Volume Rate/Area] in Serum or Plasma by Creatinine-based formula (MDRD) 19 [facility] ([facility]) Sodium 135.2 135-145 [facility] Potassium 4.20 3.5-5.3 [facility] ([facility]) Chloride 103.3 98-110 [facility] ([facility] Carbon Dioxide 24.4 20-32 [facility] ([facility]iol [facility]) Albumin 4.1 3.5-4.7 [facility] ([facility]) Calcium 9.25 8.4-10.4 [facility] ([facility]) Phosphorus 4.15 [facility] ([facility]) ID Date Data Source [id number] 02/10/2020 01:19:00 PM EDT [facility] Name Value Range Interpretation Code Description Data Fiordaliza rce(s) Supporting Document(s) WHITE BLOOD COUNT 10.64 10^3/uL 4.00-10.50 H [facility] RED BLOOD COUNT 3.43 10^6/uL 3.90-5.20 [facility] HEMOGLOBIN 10.4 G/DL 11.5-15.6 L [facility] HEMATOCRIT 33.7 % 35.0-46.0 L [facility] MCV 98.3 FL 80.0-100.0 N [facility] MCH 30.3 PG 27.0-34.0 N [facility] MCHC 30.9 G/DL 32-36 L [facility] RDW 16.1 % 11.5-14.5 H [facility] PLATELET COUNT 252 10^3/uL 130-400 N [facility] MPV 12.1 FL 8.7-13.2 N [facility] GRAN % (AUTO) 76.0 % 42.0-75.0 H [facility] LYMPH % (AUTO) 11.8 % 20.0-51.0 L [facility] MONO % (AUTO) 8.6 % 2.0-15.0 N [facility] EOS % (AUTO) 2.2 % 0.0-11.0 N [facility] BASO % (AUTO) 0.8 % 0.0-2.0 N [facility] IG % (AUTO) 0.6 % 1.00-5.00 [facility] IG # (AUTO) 0.1 10^3/uL <0.5 [facility] GRAN # (AUTO) 8.10 10^3/uL 1.50-6.50 H [facility] LYMPH # (AUTO) 1.3 k/uL 1.0-5.0 N [facility] MONO # (AUTO) 0.91 k/uL 0.20-1.50 N [facility] EOS # (AUTO) 0.23 10^3/uL 0.00-1.10 N [facility] BASO # (AUTO) 0.08 10^3/uL 0.00-0.20 N [facility] NRBC% 0.2 % 0-2 N [facility] NRBC# 0.02 # [facility] ID Date Data Source [id number] 02/10/2020 01:45:00 PM EDT [facility] Name Value Range Interpretation Code Description Data Fiordaliza rce(s) Supporting Document(s) SODIUM 139 MEQ/L 135-145 N [facility] POTASSIUM 5.4 MEQ/L 3.5-5.3 H [facility] CHLORIDE 108 MEQ/L 94-110 N [facility] CARBON DIOXIDE 20 MEQ/L 22-33 L [facility] ANION GAP 16 5-16 N [facility] BLOOD UREA NITRO 82 MG/DL 7-25 H [facility] CREATININE 2.4 MG/DL 0.6-1.4 H [facility] GFR 19.7 ML/MIN [facility] Stage G4 - Severely decreased kidney fu nction The GFR is an estimate of the Glomerular Filtration Rate. It is an aid to assess a patient's renal function. It is not a conclusive diagnosis of kidney disease. GFR normal is >=90 The MDRD GFR calculation is considered valid between the ages of 18 and 75 years only. BUN/CREAT RATIO 34 8-36 N [facility] GLUCOSE 171 MG/DL 70-100 H [facility] CA 9.6 MG/DL 8.7-10.5 N [facility] BILIRUBIN,TOTAL 0.3 MG/DL 0.1-1.3 N [facility] AST 28 U/L 5-40 N [facility] ALT 21 U/L 5-48 N [facility] ALKALINE PHOSPHATASE 116 U/L 40-140 N [facility] alth TOTAL PROTEIN 6.9 G/DL 5.9-8.3 N [facility] ALBUMIN 4.4 G/DL 3.0-5.1 N [facility] GLOBULIN 2.5 G/DL 1.5-3.5 N [facility] ALB/GLOB RATIO 1.8 G/DL 1.0-2.7 N [facility] ID Date Data Source [id number] 02/10/2020 01:45:00 PM EDT [facility] Name Value Range Interpretation Code Description Data Fiordaliza rce(s) Supporting Document(s) GLYCOSYLATED HGBA1C 7.1 % 4.1-6.5 H [facility] ID Date Data Source [id number] 02/10/2020 01:45:00 PM EDT [facility] Name Value Range Interpretation Code Description Data Fiordaliza rce(s) Supporting Document(s) TRIGLYCERIDES 91 MG/DL 45-150 N [facility] CHOLESTEROL 161 MG/DL 125-200 N [facility] LDL CHOLESTEROL 87 MG/DL 50-130 N [facility] HDL CHOLESTEROL 56 MG/DL 32-96 N [facility] CHOL/HDL RATIO 2.9 0-4.3 N [facility] ID Date Data Source [id number] 02/10/2020 01:45:00 PM EDT [facility] Name Value Range Interpretation Code Description Data Fiordaliza rce(s) Supporting Document(s) VITAMIN B12 1554 PG/ML 211-1999 N [facility] ID Date Data Source [id number] 02/10/2020 08:29:00 AM EDT [facility] ([facility]) Name Value Range Interpretation Code Description Data Fiordaliza rce(s) Supporting Document(s) Prothrombin time (PT) 33.7 SEC 8.9-13.3 [facility] ([facility]) INR in Platelet poor plasma by Coagulation assay 3.0 0.0-3.6 [facility] ([facility]) Therapeutic Values of INR are generally between 2.0-3.0 except for Prosthetic Valves (High Risk 2.5-3.5) The use of INR is restricted to patient on stable oral anticoagulant therapy. ID Date Data Source [id number] 02/10/2020 01:21:00 PM EDT [facility] [employer] Name Value Range Interpretation Code Description Data Fiordaliza rce(s) Supporting Document(s) PROTHROMBIN TIME 33.7 SEC 8.9-13.3 H [facility] INR 3.0 0.0-3.6 N [facility] Therapeutic Values of INR are generally between 2.0-3.0 except for Prosthetic Valves (High Risk 2.5-3.5) The use of INR is restricted to patient on stable oral anticoagulant therapy. ID Date Data Source [id number] 01/12/2020 01:32:00 PM EST [facility] Name Value Range Interpretation Code Description Data Fiordaliza rce(s) Supporting Document(s) PROTHROMBIN TIME 29.8 SEC 8.9-13.3 H [facility] INR 2.6 0.0-3.6 N [facility] Therapeutic Values of INR are generally between 2.0-3.0 except for Prosthetic Valves (High Risk 2.5-3.5) The use of INR is restricted to patient on stable oral anticoagulant therapy. ID Date Data Source [id number] 01/12/2020 07:38:00 AM EST [facility] ([facility]) Name Value Range Interpretation Code Description Data Fiordaliza rce(s) Supporting Document(s) Prothrombin time (PT) 29.8 SEC 8.9-13.3 [facility] (Cardiology [facility]) INR in Platelet poor plasma by Coagulation assay 2.6 0.0-3.6 [facility] Therapeutic Values of INR are generally between 2.0-3.0 except for Prosthetic Valves (High Risk 2.5-3.5) The use of INR is restricted to patient on stable oral anticoagulant therapy. ID Date Data Source [id number] 12/15/2019 08:26:00 AM EST [facility] ([facility]) Name Value Range Interpretation Code Description Data Fiordaliza rce(s) Supporting Document(s) Prothrombin time (PT) 34.4 SEC 8.9-13.3 [facility] ([facility]) INR in Platelet poor plasma by Coagulation assay 3.0 0.0-3.6 [facility] Therapeutic Values of INR are generally between 2.0-3.0 except for Prosthetic Valves (High Risk 2.5-3.5) The use of INR is restricted to patient on stable oral anticoagulant therapy. ID Date Data Source [id number] 12/15/2019 01:19:00 PM [facility] [employer] Name Value Range Interpretation Code Description Data Fiordaliza rce(s) Supporting Document(s) PROTHROMBIN TIME 34.4 SEC 8.9-13.3 H [facility] INR 3.0 0.0-3.6 N [facility] Therapeutic Values of INR are generally between 2.0-3.0 except for Prosthetic Valves (High Risk 2.5-3.5) The use of INR is restricted to patient on stable oral anticoagulant therapy. ID Date Data Source [id number] 12/01/2019 07:52:00 AM EST [facility] ([facility]) Name Value Range Interpretation Code Description Data Fiordaliza rce(s) Supporting Document(s) Prothrombin time (PT) 41.2 SEC 8.9-13.3 [facility] (Card[facility]) INR in Platelet poor plasma by Coagulation assay 3.6 0.0-3.6 [facility] ([facility]) Therapeutic Values of INR are generally between 2.0-3.0 except for Prosthetic Valves (High Risk 2.5-3.5) The use of INR is restricted to patient on stable oral anticoagulant therapy. ID Date Data Source [id number] 12/01/2019 12:45:00 PM [facility] [employer] Name Value Range Interpretation Code Description Data Fiordaliza rce(s) Supporting Document(s) PROTHROMBIN TIME 41.2 SEC 8.9-13.3 H [facility] INR 3.6 0.0-3.6 N [facility] Therapeutic Values of INR are generally between 2.0-3.0 except for Prosthetic Valves (High Risk 2.5-3.5) The use of INR is restricted to patient on stable oral anticoagulant therapy. ID Date Data Source [id number] 11/21/2019 01:32:00 PM EST [facility] ([facility]) Name Value Range Interpretation Code Description Data Fiordaliza rce(s) Supporting Document(s) White Blood Count 8.1 4.0-10.0 [facility] ([facility]) Platelets 203 172-450 [facility] (Cardiology [facility]) Hemoglobin 10.7 12.0-16.0 [facility] ([facility]) Red Blood Count 3.56 4.00-5.40 [facility] ([facility]) Hematocrit 33.5 36.0-47.0 [facility] ([facility]) ID Date Data Source [id number] 11/21/2019 01:32:00 PM EST [facility] ([facility]i [facility]) Name Value Range Interpretation Code Description Data Fiordaliza rce(s) Supporting Document(s) Glucose 61 70-100 [facility] ([facility]iology [facility]) Blood Urea Nitrogen 78.5 7-25 [facility] ([facility]) Glomerular filtration rate/1.73 sq M.pre dicted [Volume Rate/Area] in Serum or Plasma by Creatinine-based formula (MDRD) 20 [facility] ([facility]) Creatinine 2.36 0.6-1.4 [facility] ([facility]) Sodium 137.3 135-145 [facility] ([facility]) Chloride 103.2 94-110 [facility] ([facility]) Potassium 4.45 3.5-5.3 [facility] ([facility]) Carbon Dioxide 26.4 22-33 [facility] ([facility]iol [facility]) Phosphorus 4.90 [facility] ([facility]) Calcium 9.72 8.7-10.5 [facility] ([facility]iology [facility]) Albumin 4.1 3.5-5.3 [facility] ([facility]) Procedure Social History Code Duration Value Status Description Data Source(s ) Smoking 09/13/2020 12:00:00 AM EDT Patient has never smoked co mpleted Patient has never smoked [facility] ([facility]) Smoking 09/06/2020 12:00:00 AM EDT Former Smoker completed Former Smoker [id number] ([facility]) Vital Signs ID Date Data Source [id number] Name Value Range Interpretation Code Description Data Source(s) Heart rate 64 /min 64 /min [facility] ([facility]) Regular Body mass index (BMI) [Ratio] 28.9 kg/m2 28.9 k g/m2 [facility] ([facility]) Body height 61 [in_i] 61 [in_i] [facility] ([facility]i [facility]y [facility]) 5'1" Body weight 153.00 [lb_av] 153.00 [lb_av] [facility] ([facility]) Diastolic blood pressure 64 mm[Hg] 64 mm[Hg] [facility] ([facility] [facility]) sitting, large cuff Systolic blood pressure 134 mm[Hg] 134 mm[Hg] M EDENT ([facility]) sitting, large cuff Respiratory rate 16 /min 16 /min MEDENT ( [facility]) Diastolic blood pressure 78 mm[Hg] 78 mm[Hg] eCW1 ([facility]) Systolic blood pressure 126 mm[Hg] 126 mm[Hg] e CW1 ([facility]) Body temperature 97.6 [degF] 97.6 [degF] eCW1 ( [facility]) Respiratory rate 16 /min 16 /min eCW1 ([facility]) Heart rate 74 /min 74 /min [facility]CW[facility] Body mass index (BMI) [Ratio] 29.81 kg/m2 29.81 kg/m2 eCW1 ([facility]) Body height 60.5 [in_i] 60.5 [in_i] eCW1 ([facility]) Body weight 155.2 [lb_av] 155.2 [lb_av] eCW1 ([facility]) Diastolic blood pressure 74 mm[Hg] 74 mm[Hg] MEDENT ([facility]) sitting, large cuff Systolic blood pressure 126 mm[Hg] 126 mm[Hg] M EDENT ([facility]) sitting, large cuff Respiratory rate 16 /min 16 /min MEDENT ( [facility]) Heart rate 60 /min 60 /min MEDENT ([facility] Regular Body mass index (BMI) [Ratio] 27.8 kg/m2 27.8 k g/m2 MEDENT ([facility]) Body height 61 [in_i] 61 [in_i] MEDENT ([facility]) 5'1" Body weight 147.00 [lb_av] 147.00 [lb_av] MEDEN T ([facility]) Body weight 67.757 kg 67.757 kg MEDENT ([facility], ) Body mass index (BMI) [Ratio] 28.2 kg/m2 28.2 k g/m2 MEDENT ([facility], ) Body weight 149.38 [lb_av] 149.38 [lb_av] MEDEN T ([facility], ) Body height 61 [in_i] 61 [in_i] MEDENT ([facility]) 5'1" Diastolic blood pressure 68 mm[Hg] 68 mm[Hg] MEDENT ([facility]) Systolic blood pressure 182 mm[Hg] 182 mm[Hg] M EDENT ([facility]) Diastolic blood pressure 64 mm[Hg] 64 mm[Hg] eCW1 ([facility]) Systolic blood pressure 158 mm[Hg] 158 mm[Hg] e CW1 ([facility]) Body temperature 95.4 [degF] 95.4 [degF] eCW1 ( [facility]) Heart rate 58 /min 58 /min eCW1 [facility] Body mass index (BMI) [Ratio] 28.23 kg/m2 28.23 kg/m2 eCW1 ([facility]) Body height 60.5 [in_us] 60.5 [in_us] eCW1 ([facility]) Body weight Measured 147 [lb_av] 147 [lb_av] eC W1 ([facility]) Body weight 67.813 kg 67.813 kg MEDENT ([facility], ) Body mass index (BMI) [Ratio] 28.2 kg/m2 28.2 k g/m2 MEDENT ([facility], ) Body weight 149.50 [lb_av] 149.50 [lb_av] MEDEN T ([facility], ) Body height 61 [in_i] 61 [in_i] MEDENT ([facility], ) 5'1" Diastolic blood pressure 84 mm[Hg] 84 mm[Hg] MEDENT ([facility], ) Systolic blood pressure 166 mm[Hg] 166 mm[Hg] JUMA ([facility], ) Diastolic blood pressure 66 mm[Hg] 66 mm[Hg] MANUEL ([facility]) Sitting, large cuff Systolic blood pressure 126 mm[Hg] 126 mm[Hg] M JUMA ([facility]) Sitting, large cuff Respiratory rate 16 /min 16 /min MEDMARCO ( [facility]) Heart rate 60 /min 60 /min MEDMARCO ([facility]) Regular Body mass index (BMI) [Ratio] 28.3 kg/m2 28.3 k g/m2 MANUEL ([facility]) Body height 61 [in_i] 61 [in_i] MANUEL ([facility]) 5'1" Body weight 150.00 [lb_av] 150.00 [lb_av] ROSAURA Terry ([facility])
--- OUTSIDE RECORDS SUMMARY | 2021-01-04 16:07 | CCD ---
Author Author [facility] Organization [facility] Address Unknown Phone Unavailable Care Team Providers Care Freezer Assistant Name Role Phone Yuly Scanlon MD Unavailable [...] P GEORGI MD Unavailable Unavailable ARNOLD, P GEROGI MD Unavailable Unavailable Symenow, Sandra Carin PA [...] Unavailable Ismael, Courtney PA Unavailable Unavailable Ismael, Ocurtney PA Unavailable Unavailable Ismael, Courtney PA Unavailable [...] is protected by Article 27-F of the [facility] Public Health law. If you continue you may have access to information: Regarding HIV / AIDS; Provided by facilities licensed or operated by the [facility] Office of Mental Health; or Provided by the [facility] Office for People With Developmental Disabilities. If such information is present, then the following [facility] mandated warning applies: This information has [...] law may result in a fine or fdc sentence or both. A general authorization for the release of medical or other information is NOT sufficient authorization for further disc losure. Allergies and Adverse Reactions Type Description Substance Reaction Status Data Source(s ) AmLODIPine Besylate AmLODIPine Besylate Amlodipine 10 MG Oral Table t diarrhea Active eCW1 ([facility]) Family History Family Member Name Family Member Gender Family Member Status Date o f Status Description Data Source(s) Unknown Unknown Problem MEDENT ([facility]) SISTER Unknown Unknown Problem [facility] ([facility]) Encounters Encounter Providers Location Date Indications Data Source(s ) Outpatient Attender: Carni MORRISON 01/04/2021 09:19:00 A M EST lab [facility] lab Outpatient Attender: Carin MORRISON 12/02/2020 08:34:00 A M EST Lab [facility] Outpatient Attender: Carin MORRISON 11/17/2020 07:53:00 A M EST Lab [facility] Outpatient Attender: Carin MORRISON 11/08/2020 07:46:00 A M EST Lab [facility] Outpatient Attender: Carin MORRISON 2020 07:38:00 A M EST Lab [facility] Outpatient Attender: Carin MORRISON 09/14/2020 07:59:00 A M EDT Lab [facility] Lab Outpatient Attender: Carin MORRISON Main Office 09/13/2020 09:15:00 AM EDT MEDENT ([facility]) Outpatient [address] [facility] [address] 09/06/2020 12:00:00 AM EDT eCW1 (Critical access hospital) [facility] [place] [address] [facility] [address] 09/03/2020 12:00:00 AM EDT eCW1 (Critical access hospital) Outpatient Attender: Carin MORRISON 09/01/2020 07:45:00 A M EDT Lab [facility] Outpatient Attender: Courtney MORRISON 08/30/2020 07:25:0 0 AM EDT lab 1 of 1 [facility] lab 1 of 1 Outpatient Attender: Maria Del Carmen MORRISON 08/17/2020 08:20:00 AM EDT lab 1 of 1 [facility] lab 1 of 1 Outpatient Attender: GEORGI GODFREY MD 08/11/2020 01:29:0 0 PM EDT Xray [facility] Xray Outpatient Attender: Maria Del Carmen MORRISON 08/11/2020 01:26:00 PM EDT Lab [facility] Lab Outpatient Attender: Carin MORRISON 07/20/2020 07:42:00 A M EDT lab 1 of 1 [facility] lab 1 of 1 Outpatient Attender: Carin MORRISON 07/05/2020 07:25:00 A M EDT lab 1 of 1 [facility] lab 1 of 1 Outpatient Attender: Carin MORRISON Main Office 06/10/2020 09:15:00 AM EDT MEDENT ([facility]) Outpatient Attender: Carin MORRISON 06/03/2020 07:21:00 A M EDT lab 1 of 1 [facility] lab 1 of 1 Outpatient Attender: Diana Ramirez 05/10/2020 02:06:00 PM EDT L ab [facility] Lab Outpatient Attender: Carin MORRISON 05/05/2020 07:01:00 A M EDT Lab [facility] Outpatient Attender: Althea Merritt/Huy/Rolf/R eindl 04/19/2020 09:15:00 AM EDT MEDENT ([facility]) Outpatient Attender: Carin MORRISON 04/06/2020 07:04:00 A M EDT Lab [facility] Outpatient Attender: Carin MORRISON 03/08/2020 09:08:00 A M EDT Lab [facility] [address], [facility] [address] 03/04/2020 12:00:00 AM EDT eCW1 (Critical access hospital) Outpatient Attender: Courtney MORRISON 02/10/2020 08:29:0 0 AM EDT Lab [facility] Outpatient Attender: Carin MORRISON 02/10/2020 08:26:00 A M EDT Lab [facility] Outpatient Attender: Sanna Merritt/Huy/Rolf/ Reindl 01/12/2020 12:15:00 PM EST MEDENT ([facility]) Outpatient Attender: Maria Del Carmen MORRISON 01/12/2020 07:33:00 AM EST lab [facility] lab Outpatient 12/15/2019 01:08:00 PM EST [facility] Outpatient Attender: Maria Del Carmen MORRISON 12/15/2019 08:21:00 AM EST Lab [facility] Outpatient Attender: aCrin MORRISON Main Office 12/09/2019 11:45:00 AM EST MEDENT ([facility]) Outpatient Attender: Althea Merritt/Huy/Rolf/Medina eimarychuyl 12/02/2019 08:15:00 AM EST MEDENT ([facility]) Outpatient Attender: Maria Del Carmen MORRISON 12/01/2019 07:41:00 AM EST lab [facility] lab Immunizations Vaccine Date Status Description Data Source(s) Vitamin B-12 1000mcg/1mL (Cyanocobalamin) 09/06/2020 10:26:00 AM EDT completed eCW1 ([facility]) influenza, recombinant, quadrIvalent,injectable, prese rvative free 09/06/2020 10:25:00 AM EDT completed eCW1 ([facility]) Medications Medication Brand Name Start Date Product Form Dose Route Admi nistrative Instructions Pharmacy Instructions Status Indications Reaction Description Data Source(s) 100 unit/mL (3 mL) 12/17/2020 12:00:00 AM EST insulin pen 15 INJECT 35 UNITS SUBCUTANEOUSLY ONCE DAILY INJECT 35 UNITS SUBCUTANEOUSLY ONCE DAILY SOLD: 12/20/2020 [facility] 100 mcg/0.5 mL 12/07/2020 12:00:00 AM EST suspension 0 INJECT BY [facility] (FIRST DOSE) INJECT BY [facility] (FIRST DOSE) SOLD: 12/07/2020 [facility] BLOOD [...] EDT ORAL active [facility] ([facility]) calcium acetate 667 MG Oral Capsule Calcium Acetate (Phos Bi nder) 09/12/2020 12:00:00 AM EDT ORAL active M EDENT ([facility]) Hydralazine Hydrochloride 10 MG Oral Tablet Hydralazine HCL 09/12/2020 12:00:00 AM EDT ORAL active [facility] ([facility]) 20 mg 09/06/2020 12:00:00 AM EDT tablet [...] ORAL active MEDENT ([facility]) 80 mg 08/27/2020 12:00:00 AM EDT tablet [...] EDT ORAL active [facility] ([facility]) Hydralazine Hydrochloride 10 MG Oral Tablet HYDRALAZINE [...] WITH MEALS SOLD: 12/19/2019 [facility] Calcitriol 0.12626 MG Oral Capsule 0.25 mcg CALCITRIOL 11/10/2019 [...] THREE TIMES A DAY SOLD: 12/19/2019 [facility] BLOOD SUGAR DIAGNOSTIC 10/20/2019 12:00:00 AM EST [...] DAILY DIREC MADELEINE BY CARDIOLOGY SOLD: 11/11/2019 [facility] Insurance Providers Payer name Policy type / Coverage type Policy ID Covered green party ID Covered green party's relationship to moreira Policy Moreira Plan Information AETNA MEDICARE [id number] SP [id number] MEDICARE [id number] SP [id number] SELF PAY AETNA MEDICARE ADV [id number] SP [id number] AETNA MEDICARE [id number] SP [id number] SELF PAY AETNA MEDICARE ADV [id number] SP [id number] SELF PAY AETNA MEDICARE ADV [id number] SP M [id number] SELF PAY AETNA MEDICARE ADV [id number] SP M [id number] AETNA MEDICARE [id number] SP [id number] SELF PAY AETNA MEDICARE ADV [id number] SP M [id number] AETNA MEDICARE [id number] SP [id number] SELF PAY AETNA MEDICARE ADV [id number] SP M [id number] SELF PAY AETNA MEDICARE ADV [id number] SP M [id number] SELF PAY AETNA MEDICARE ADV [id number] SP M [id number] SELF PAY AETNA MEDICARE ADV [id number] SP M [id number] SELF PAY AETNA MEDICARE ADV [id number] SP M [id number] SELF PAY AETNA MEDICARE ADV [id number] SP M [id number] SELF PAY AETNA MEDICARE ADV [id number] SP M [id number] SELF PAY AETNA MEDICARE ADV [id number] SP M [id number] SELF PAY AETNA MEDICARE ADV [id number] SP M [id number] SELF PAY AETNA MEDICARE ADV [id number] SP M [id number] SELF PAY AETNA MEDICARE ADV [id number] SP M [id number] SELF PAY AETNA MEDICARE ADV [id number] SP M [id number] SELF PAY AETNA MEDICARE ADV [id number] SP M [id number] SELF PAY AETNA MEDICARE ADV [id number] SP M [id number] SELF PAY AETNA MEDICARE ADV [id number] SP M [id number] AETNA MEDICARE O [id number] S [id number] AETNA MEDICARE [id number] SP [id number] SELF PAY AETNA MEDICARE ADV [id number] SP M [id number] SELF PAY AETNA MEDICARE ADV [id number] SP M [id number] SELF PAY AETNA MEDICARE ADV [id number] SP M [id number] SELF PAY AETNA MEDICARE ADV [id number] SP M [id number] SELF PAY AETNA MEDICARE ADV [id number] SP M [id number] SELF PAY AETNA MEDICARE ADV [id number] SP M [id number] SELF PAY AETNA MEDICARE ADV [id number] SP M [id number] SELF PAY AETNA MEDICARE ADV [id number] SP M [id number] ANSI-Medicare Part B [id number] ANSI-Medicare Part B [id number] ANSI-Medicare Part B [id number] ANSI-Medicare Part B [id number] SELF PAY AETNA MEDICARE ADV [id number] SP M [id number] ANSI-Medicare Part B [id number] ANSI-Medicare Part B [id number] SELF PAY AETNA MEDICARE ADV [id number] SP M [id number] Today's Options PFFS Commercial [id number] Self [id number] Medicare (Part B) Medicare Primary [id number] Self [id number] Medicaid Spenddown Medigap Part B [id number] Self [id number] Medicaid Medigap Part B [id number] Self [id number] [facility] [id number] Self [id number] Aetna Medicare Commercial [id number] Self [id number] U/HC Medicare Solutions Commercial [id number] Self [id number] AETNA MEDICARE [id number] SP [id number] SELF PAY AETNA MEDICARE ADV [id number] SP M [id number] ANSI-Medicare Part B [id number] ANSI-Medicare Part B [id number] [facility] [id number] Self 01 [id number] [place] Medicare Primary [id number] Self [id number] Aetna Commercial [id number] Self [id number] SELF PAY AETNA MEDICARE ADV [id number] SP M [id number] MEDICARE [id number] SP [id number] SELF PAY AETNA MEDICARE ADV [id number] SP M [id number] [facility] Medigap Part B [id number] 12 Self 01 [id number] [place]/[facility] Medicare Primary [id number] Self [id number] SELF PAY AETNA MEDICARE ADV [id number] SP M [id number] SELF PAY AETNA MEDICARE ADV [id number] SP M [id number] Today's Options PFFS Commercial [id number] Self [id number] Medicare (Part B) Medicare Primary [id number] Self [id number] Medicaid Spenddown Medigap Part B [id number] Self [id number] Medicaid Medigap Part B [id number] Self [id number] [facility] Medigap Part B [id number] Self [id number] Aetna Medicare Commercial [id number] Self [id number] Today's Options PFFS Commercial [id number] Self [id number] Medicare (Part B) Medicare Primary [id number] Self [id number] Medicaid Spenddown Medigap Part B [id number] Self [id number] Medicaid Medigap Part B [id number] Self [id number] [facility] Medigap Part B [id number] Self [id number] Aetna Medicare Commercial [id number] Self [id number] [facility] Medigap Part B [id number] Self [id number] [place] [facility]/[facility] Medicare Primary [id number] Self [id number] ANSI-Medicare Part B [id number] ANSI-Medicare Part B [id number] SELF PAY AETNA MEDICARE ADV [id number] SP M [id number] AETNA MEDICARE COMPLETE G [id number] Self [id number] SELF PAY AETNA MEDICARE ADV [id number] SP M [id number] ANSI-Medicare Part B [id number] ANSI-Medicare Part B [id number] Today's Options PFFS Commercial [id number] Self [id number] Medicare (Part B) Medicare Primary [id number] Self [id number] Medicaid Spenddown Medigap Part B [id number] Self [id number] Medicaid Medigap Part B [id number] Self [id number] [facility] Healthcare Options [facility] Part B [id number] Self [id number] Aetna Medicare Commercial [id number] Self [id number] SELF PAY AETNA MEDICARE ADV [id number] SP M [id number] SELF PAY AETNA MEDICARE ADV [id number] SP M [id number] SELF PAY AETNA MEDICARE ADV [id number] SP M [id number] SELF PAY AETNA MEDICARE ADV [id number] SP M [id number] Today's Options PFFS Commercial [id number] Self [id number] Medicare (Part B) Medicare Primary [id number] Self [id number] Medicaid Spenddown Medigap Part B [id number] Self [id number] Medicaid Medigap Part B [id number] Self [id number] [facility] Medigap Part B [id number] Self [id number] Aetna Medicare Commercial [id number] Self [id number] SELF PAY AETNA MEDICARE ADV [id number] SP M [id number] SELF PAY AETNA MEDICARE ADV [id number] SP M [id number] SELF PAY AETNA MEDICARE ADV [id number] SP M [id number] SELF PAY AETNA MEDICARE ADV [id number] SP M [id number] ANSI-Medicare Part B [id number] ANSI-Medicare Part B [id number] ANSI-Medicare Part B [id number] ANSI-Medicare Part B [id number] AETNA MEDICARE ADV [id number] SP M [id number] AETNA MEDICARE COMPLETE G [id number] Self [id number] OTHER B TRANSPLANT Self TRANSPLAN T ANSI-Medicare Part B [id number] ANSI-Medicare Part B [id number] MEDICARE [id number] SP [id number] ANSI-Medicare Part B [id number] ANSI-Medicare Part B [id number] Today's Options PFFS Commercial [id number] Self [id number] Medicare (Part B) Medicare Primary [id number] Self [id number] Medicaid Spenddown Medigap Part B [id number] Self [id number] Medicaid Medigap Part B [id number] Self [id number] [facility] Healthcare Options Medigap Part B [id number] Self [id number] Aetna Medicare Commercial [id number] Self [id number] AETNA MEDICARE [id number] SP [id number] Today's Options PFFS Commercial [id number] Self [id number] Medicare (Part B) Medicare Primary [id number] Self [id number] Medicaid Spenddown Medigap Part B [id number] Self [id number] Medicaid Medigap Part B [id number] Self [id number] [facility] Medigap Part B [id number] Self [id number] Aetna Medicare Commercial [id number] Self [id number] AETNA MEDICARE ADV [id number] SP M [id number] AETNA LIFE CASUALTY [id number] SP [id number] Today's Options PFFS Commercial [id number] Self [id number] Medicare (Part B) Medicare Primary [id number] Self [id number] Medicaid Spenddown Medigap Part B [id number] Self [id number] Medicaid Medigap Part B [id number] Self [id number] [facility] Medigap Part B [id number] Self [id number] Aetna Medicare Commercial [id number] Self [id number] UNITED HEALTHCARE MGD MEDICARE [id number] SP [id number] MEDICARE [id number] SP [id number] A MEDICARE COMPLETE [id number] SP [id number] [facility] Medicare Commercial [id number] Self [id number] [facility] Medigap Part B [id number] 12 Self [id number] Medicare [facility] Medicare Primary [id number] Self [id number] [facility] Medicare Commercial [id number] Self [id number] [facility]arp Medigap Part B [id number] Self [id number] Medicare [facility] Medicare Primary [id number] Self [id number] MEDICARE COMPLETE [id number] SP [id number] Today's Options PFFS Commercial [id number] Self [id number] Medicare (Part B) Medicare Primary [id number] Self [id number] Medicaid Spenddown Medigap Part B [id number] Self [id number] Medicaid Medigap Part B [id number] Self [id number] [facility] Medigap Part B [id number] Self [id number] U/HC Medicare Solutions Commercial [id number] Self [id number] MEDICARE COMPLETE [id number] SP [id number] Today's Options PFFS Commercial [id number] Self [id number] Medicare (Part B) Medicare Primary [id number] Self [id number] Medicaid Spenddown Medigap Part B [id number] Self [id number] Medicaid Medigap Part B [id number] Self [id number] [facility] Medigap Part B [id number] Self [id number] Today's Options PFFS Commercial [id number] Self [id number] Medicare (Part B) Medicare Primary [id number] Self [id number] Medicaid Spenddown Medigap Part B [id number] Self [id number] Medicaid Medigap Part B [id number] Self [id number] [id number] [facility] Medigap Part B [id number] Self [id number] UNITED HEALTHCARE MGD MEDICARE [id number] SP [id number] Medicare (Part B) Medicare Primary Self Today's Options PFFS Commercial Self Medicaid Spenddown Medigap Part B Self Medicaid Medigap Part B 1 1 Self 1 1 [facility] Options Medigap Part B Self U/HC Medicare Solutions Commercial Self Unitedhealthcare Medicare Commercial Self [facility]arp Medigap Part B Self Medicare [facility] Medicare Primary Self MEDICARE COMPLETE-[facility] O [id number] S [id number] MEDICARE COMPLETE [id number] SP [id number] UNITED HEALTHCARE MGD MEDICARE [id number] SP [id number] Medicare Medicare Primary Self Medicaid Medigap Part B Self [employer] [id number] SP [id number] UNITED HEALTHCARE MGD MEDICARE [id number] SP [id number] [employer]IONS [id number] SP [id number] MEDICARE [id number] SP [id number] B AARP HE[employer]CARE OPTIONS [id number] SP [id number] MEDICARE [id number] SP [id number] B [id number] Problems, Conditions, and Diagnoses Code Display Name Description Problem Type Effective Dates Data Source(s) Z95.2 Presence of prosthetic heart valve Z95.2 - Presence of prosthetic heart valve Diagnosis 12/02/2020 08:34:00 AM EST [facility] E11.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 E11.39 - Type 2 diabetes mellitus with other diabetic ophthalmic complication Diagnosis 08/30/2020 07:25:00 AM EDT [facility] M25.552 Pain in left hip M25.552 - Pain in left hip Diagnosis 08/11/2020 01:29:00 PM EDT [facility] Z85.3 Personal history of malignant neoplasm o f breast Z85.3 - Personal history of malignant neoplasm of breast Diagnosis 05/10/2020 02:06:00 PM EDT [facility] E78.2 Mixed hyperlipidemia E78.2 - Mixed hyperlipidemia Diag nosis 02/10/2020 08:29:00 AM EDT [facility] Surgeries/Procedures Procedure Description Date Indications Data Source(s) Anticoagulant MGMT For Patient Taking [facility] Review & Intr 12/03/2020 12:00:00 AM EST [facility] ([facility] Anticoagulant MGMT For Patient Taking Warfarin, Inc Review & Intr 11/18/2020 12:00:00 AM EST [facility] ([facility]) Anticoagulant MGMT For Patient Taking Warfarin, Inc Review & Intr 11/09/2020 12:00:00 AM EST [facility] ([facility]) Anticoagulant MGMT For Patient Taking Warfarin, Inc Review & Intr 10/13/2020 12:00:00 AM EST [facility] ([facility]) Anticoagulant MGMT For Patient Taking Warfarin, Inc Review & Intr 09/14/2020 12:00:00 AM EDT [facility] ([facility]) Anticoagulant MGMT For Patient Taking Warfarin, Inc Review & Intr 09/07/2020 12:00:00 AM EDT [facility] ([facility]) Injection, vitamin b-12 cyanocobalamin, up to 1000 mcg 09/06/2020 12:00:00 AM EDT eCW1 (Critical access hospital) Immunization: Flublok Quadrivalent (18 years & older) 0.5mL IM (Influenza) 09/06/2020 12:00:00 AM EDT eCW1 ([facility]) Anticoagulant MGMT For Patient Taking Warfarin, Inc Review & Intr 09/02/2020 12:00:00 AM EDT [facility] ([facility] Anticoagulant MGMT For Patient Taking Warfarin, Inc Review & Intr 08/18/2020 12:00:00 AM EDT [facility] ([facility]) Anticoagulant MGMT For Patient Taking Warfarin, Inc Review & Intr 08/12/2020 12:00:00 AM EDT [facility] ([facility]) Anticoagulant MGMT For Patient Taking Warfarin, Inc Review & Intr 07/23/2020 12:00:00 AM EDT [facility] ([facility]) Anticoagulant MGMT For Patient Taking Warfarin, Inc Review & Intr 07/08/2020 12:00:00 AM EDT [facility] ([facility]) ECG ROUTINE ECG W/LEAST 12 LDS W/I&R 06/10/2020 12:00: 00 AM EDT [facility]) Anticoagulant MGMT For Patient Taking Warfarin, Inc Review & Intr 06/04/2020 12:00:00 AM EDT [facility] ([facility]) Anticoagulant MGMT For Patient Taking Warfarin, Inc Review & Intr 05/06/2020 12:00:00 AM EDT [facility] ([facility] Anticoagulant MGMT For Patient Taking Warfarin, Inc Review & Intr 04/07/2020 12:00:00 AM EDT [facility] ([facility] Anticoagulant MGMT For Patient Taking Warfarin, Inc Review & Intr 03/09/2020 12:00:00 AM EDT [facility] ([facility]) PHYSICIAN TELEPHONE EVALUATION 21-30 MIN 03/04/2020 12 :00:00 AM EDT eCW1 ([facility]) Anticoagulant MGMT For Patient Taking Warfarin, Inc Review & Intr 02/10/2020 12:00:00 AM EDT [facility] ([facility] Anticoagulant MGMT For Patient Taking Warfarin, Inc Review & Intr 01/13/2020 12:00:00 AM EST [facility] ([facility] Anticoagulant MGMT For Patient Taking Warfarin[facility] Inc Review & Intr 12/15/2019 12:00:00 AM EST [facility] ([facility]) Anticoagulant MGMT For Patient Taking Warfarin, Inc Review & Intr 12/02/2019 12:00:00 AM EST [facility] ([facility]) Results ID Date Data Source [id number] 01/04/2021 01:23:00 PM [facility] Value Range Interpretation Code Description Data Fiordaliza rce(s) Supporting Document(s) WHITE BLOOD COUNT 7.92 10^3/uL 4.00-10.50 [facility] RED BLOOD COUNT 2.33 10^6/uL 3.90-5.20 [facility] HEMOGLOBIN 7.1 G/DL 11.5-15.6 [facility] HEMATOCRIT 22.9 % 35.0-46.0 [facility] MCV 98.3 FL 80.0-100.0 [facility] MCH 30.5 PG 27.0-34.0 [facility] MCHC 31.0 G/DL 32-36 [facility] RDW 16.8 % 11.5-14.5 [facility] PLATELET COUNT 236 10^3/uL 130-400 [facility] MPV 11.3 FL 8.7-13.2 [facility] [place] GRAN % (AUTO) 74.4 % 42.0-75.0 [facility] LYMPH % (AUTO) 11.5 % 20.0-51.0 [facility] MONO % (AUTO) 8.3 % 2.0-15.0 [facility] EOS % (AUTO) 4.4 % 0.0-11.0 [facility] BASO % (AUTO) 0.9 % 0.0-2.0 [facility] IG % (AUTO) 0.5 % 1.00-5.00 [facility] IG # (AUTO) 0.0 10^3/uL <0.5 [facility] GRAN # (AUTO) 5.89 10^3/uL 1.50-6.50 [facility] LYMPH # (AUTO) 0.9 k/uL 1.0-5.0 L [facility] MONO # (AUTO) 0.66 k/uL 0.20-1.50 [facility] EOS # (AUTO) 0.35 10^3/uL 0.00-1.10 [facility] BASO # (AUTO) 0.07 10^3/uL 0.00-0.20 [facility] ID Date Data Source [id number] 01/04/2021 02:20:00 PM [facility] Name Value Range Interpretation Code Description Data Fiordaliza rce(s) Supporting Document(s) SODIUM 140 MEQ/L 135-145 [facility] POTASSIUM 4.0 MEQ/L 3.5-5.3 [facility] CHLORIDE 103 MEQ/L 94-110 [facility] [facility] CARBON DIOXIDE 27 MEQ/L 22-33 [facility] ANION GAP 14 5-16 [facility] BLOOD UREA NITRO 83 MG/DL 7-25 [facility] CREATININE 2.4 MG/DL 0.6-1.4 [facility] GFR 19.7 ML/MIN [facility] [address] Stage G4 - Severely decreased kidney fu nction The GFR is an estimate of the Glomerular Filtration Rate. It is an aid to assess a patient's renal function. It is not a conclusive diagnosis of kidney disease. GFR normal is >=90 The MDRD GFR calculation is considered valid between the ages of 18 and 75 years only. BUN/CREAT RATIO 34 8-36 N [facility] GLUCOSE 205 MG/DL 70-100 [facility] CA 8.6 MG/DL 8.7-10.5 L [facility] [address] ID Date Data Source [id number] 01/04/2021 02:20:00 PM [facility] Name Value Range Interpretation Code Description Data Fiordaliza rce(s) Supporting Document(s) MAGNESIUM 1.5 mg/dl 1.8-2.4 L [facility] [address] ID Date Data Source [id number] 01/04/2021 01:30:00 PM [facility] Name Value Range Interpretation Code Description Data Fiordaliza rce(s) Supporting Document(s) PROTHROMBIN TIME 29.4 SEC 8.9-13.3 [facility] INR 2.6 0.0-3.6 N [facility] [address] Therapeutic Values of INR are generally between 2.0-3.0 except for Prosthetic Valves (High Risk 2.5-3.5) The use of INR is restricted to patient on stable oral anticoagulant therapy. ID Date Data Source [id number] 12/03/2020 08:11:00 AM EST [facility] ([facility]) Name Value Range Interpretation Code Description Data Fiordaliza rce(s) Supporting Document(s) White Blood Count 6.7 4.3-10.9 [facility] ([facility]) Red Blood Count 3.09 4.70-6.20 [facility] ([facility]) Platelets 227 130-400 [facility] ([facility]) Hemoglobin 9.0 13.0-17.0 [facility] ([facility]) Hematocrit 28.7 39.0-50.0 [facility] ([facility]) ID Date Data Source [id number] 12/03/2020 08:11:00 AM EST [facility] ([facility]) Name Value Range Interpretation Code Description Data Fiordaliza rce(s) Supporting Document(s) Glucose 262 70-100 [facility] ([facility]) Blood Urea Nitrogen 45.3 5-21 [facility] ([facility]) Creatinine 2.4 0.6-1.5 [facility] ([facility]) Glomerular filtration rate/1.73 sq M.pre dicted [Volume Rate/Area] in Serum or Plasma by Creatinine-based formula (MDRD) 20 [facility] ([facility]) Sodium 139.4 136-146 [facility] ([facility]) Potassium 4.07 3.5-5.3 [facility] ([facility]) Carbon Dioxide 30.7 20-32 [facility] ([facility]) Chloride 95.9 98-110 [facility] ([facility]) Phosphorus 3.4 [facility] ([facility]) Calcium 8.7 8.4-10.4 [facility] ([facility]) Albumin 3.6 3.5-4.7 [facility] ([facility]) ID Date Data Source [id number] 12/02/2020 08:49:00 AM EST [facility] ([facility]) Name Value Range Interpretation Code Description Data Fiordaliza rce(s) Supporting Document(s) INR in Platelet poor plasma by Coagulation assay 3.2 0.0-3.6 [facility] ([facility]) Therapeutic Values of INR are generally between 2.0-3.0 except for Prosthetic Valves (High Risk 2.5-3.5) The use of INR is restricted to patient on stable oral anticoagulant therapy. Prothrombin time (PT) 36.0 SEC 8.9-13.3 [facility] ([facility]) ID Date Data Source [id number] 12/02/2020 01:32:00 PM [facility] Name Value Range Interpretation Code Description Data Fiordaliza rce(s) Supporting Document(s) PROTHROMBIN TIME 36.0 SEC 8.9-13.3 [facility] INR 3.2 0.0-3.6 [facility] Therapeutic Values of INR are generally between 2.0-3.0 except for Prosthetic Valves (High Risk 2.5-3.5) The use of INR is restricted to patient on stable oral anticoagulant therapy. ID Date Data Source [id number] 11/17/2020 07:57:00 AM EST [facility] [place] [place] Name Value Range Interpretation Code Description Data Fiordaliza rce(s) Supporting Document(s) INR in Platelet poor plasma by Coagulation assay 3.5 0.0-3.6 [facility] (Cardiology [facility]) Therapeutic Values of INR are generally between 2.0-3.0 except for Prosthetic Valves (High Risk 2.5-3.5) The use of INR is restricted to patient on stable oral anticoagulant therapy. Prothrombin time (PT) 39.0 SEC 8.9-13.3 [facility] ([facility]) ID Date Data Source [id number] 11/17/2020 02:22:00 PM [facility] Name Value Range Interpretation Code Description Data Fiordaliza rce(s) Supporting Document(s) PROTHROMBIN TIME 39.0 SEC 8.9-13.3 [facility] INR 3.5 0.0-3.6 N [facility] [address] Therapeutic Values of INR are generally between 2.0-3.0 except for Prosthetic Valves (High Risk 2.5-3.5) The use of INR is restricted to patient on stable oral anticoagulant therapy. ID Date Data Source [id number] 11/08/2020 07:48:00 AM EST [facility] [place] [place] Name Value Range Interpretation Code Description Data Fiordaliza rce(s) Supporting Document(s) Prothrombin time (PT) 19.3 SEC 8.9-13.3 [facility] ([facility]) INR in Platelet poor plasma by Coagulation assay 1.7 0.0-3.6 [facility]) Therapeutic Values of INR are generally between 2.0-3.0 except for Prosthetic Valves (High Risk 2.5-3.5) The use of INR is restricted to patient on stable oral anticoagulant therapy. ID Date Data Source [id number] 11/08/2020 01:37:00 PM [facility] [facility] Name Value Range Interpretation Code Description Data Fiordaliza rce(s) Supporting Document(s) PROTHROMBIN TIME 19.3 SEC 8.9-13.3 H [facility] INR 1.7 0.0-3.6 N [place] [facility] Therapeutic Values of INR are generally between 2.0-3.0 except for Prosthetic Valves (High Risk 2.5-3.5) The use of INR is restricted to patient on stable oral anticoagulant therapy. ID Date Data Source [id number] 2020 07:42:00 AM EST [facility] [place] Name Value Range Interpretation Code Description Data Fiordaliza rce(s) Supporting Document(s) Prothrombin time (PT) 27.3 SEC 8.9-13.3 [facility] ([facility]) INR in Platelet poor plasma by Coagulation assay 2.4 0.0-3.6 [facility] ([facility]) Therapeutic Values of INR are generally between 2.0-3.0 except for Prosthetic Valves (High Risk 2.5-3.5) The use of INR is restricted to patient on stable oral anticoagulant therapy. ID Date Data Source [id number] 2020 01:45:00 PM [facility] [facility] Name Value Range Interpretation Code Description Data Fiordaliza rce(s) Supporting Document(s) PROTHROMBIN TIME 27.3 SEC 8.9-13.3 H [facility] INR 2.4 0.0-3.6 N [place] [facility] Therapeutic Values of INR are generally between 2.0-3.0 except for Prosthetic Valves (High Risk 2.5-3.5) The use of INR is restricted to patient on stable oral anticoagulant therapy. ID Date Data Source [id number] 09/14/2020 08:01:00 AM EDT [facility] [place] Name Value Range Interpretation Code Description Data Fiordaliza rce(s) Supporting Document(s) INR in Platelet poor plasma by Coagulation assay 2.3 0.0-3.6 [facility] ([facility]) Therapeutic Values of INR are generally between 2.0-3.0 except for Prosthetic Valves (High Risk 2.5-3.5) The use of INR is restricted to patient on stable oral anticoagulant therapy. Prothrombin time (PT) 25.9 SEC 8.9-13.3 [facility] ([facility]) ID Date Data Source [id number] 09/14/2020 01:39:00 PM EDT [facility] [address] Name Value Range Interpretation Code Description Data Fiordaliza rce(s) Supporting Document(s) PROTHROMBIN TIME 25.9 SEC 8.9-13.3 H [facility] [address] INR 2.3 0.0-3.6 N [facility] [address] Therapeutic Values of INR are generally between 2.0-3.0 except for Prosthetic Valves (High Risk 2.5-3.5) The use of INR is restricted to patient on stable oral anticoagulant therapy. ID Date Data Source [id number] 09/06/2020 10:35:00 AM EDT [facility] ([facility] [place] Name Value Range Interpretation Code Description Data Fiordaliza rce(s) Supporting Document(s) Prothrombin Time 23.1 s 12.5-14.3 [facility] ([facility]) Inr 2.00 [facility] (Cardiology [facility]) THERAPUTIC HUMAN INR VALUES INDICATIONS NORMAL RANGES PROPHYLAXIS/TREATMENT OF: VENOUS THROMBOSIS 2.0-3.0 PULMONARY EMBOLISM 2.0-3.0 PREVENTION OF SYSTEMIC EMBOLISM FROM: TISSUE HEART VALVES 2.0-3.0 ACUTE MYOCARDIAL INFARCTION 2.0-3.0 VALVULAR HEART DISEASE 2.0-3.0 ATRIAL FIBRILLATION 2.0-3.0 MECHANICAL VALVES(HIGH RISK) 2.5-3.5 RECURRENT MYOCARDIAL INFARCTION 2.5-3.5 ID Date Data Source [id number] 09/01/2020 08:10:00 AM EDT [facility] [place] Name Value Range Interpretation Code Description Data Fiordaliza rce(s) Supporting Document(s) Prothrombin time (PT) 56.1 SEC 8.9-13.3 [facility] ([facility]) INR in Platelet poor plasma by Coagulation assay 5.0 0.0-3.6 Above upper panic limits [facility] ([facility]) Critical Results called to Britany Couch by [id number] at 1351 on 09/01/20 Therapeutic Values of INR are generally between 2.0-3.0 except for Prosthetic Valves (High Risk 2.5-3.5) The use of INR is restricted to patient on stable oral anticoagulant therapy. ID Date Data Source [id number] 09/01/2020 01:55:00 PM EDT [facility] Name Value Range Interpretation Code Description Data Fiordaliza rce(s) Supporting Document(s) PROTHROMBIN TIME 56.1 SEC 8.9-13.3 [facility] [place] [facility] INR 5.0 0.0-3.6 [facility] Critical Results called to Britany C by [id number] at 1351 on 09/01/20 Therapeutic Values of INR are generally between 2.0-3.0 except for Prosthetic Valves (High Risk 2.5-3.5) The use of INR is restricted to patient on stable oral anticoagulant therapy. ID Date Data Source [id number] 08/30/2020 02:25:00 PM EDT [facility] Name Value Range Interpretation Code Description Data Fiordaliza rce(s) Supporting Document(s) SODIUM 137 MEQ/L 135-145 N [place] [facility] POTASSIUM 4.3 MEQ/L 3.5-5.3 N [place] [facility] CHLORIDE 103 MEQ/L 94-110 N [place] [facility] CARBON DIOXIDE 28 MEQ/L 22-33 N [facility] ANION GAP 10 5-16 N [place] [facility] [facility] BLOOD UREA NITRO 62 MG/DL 7-25 H [place] CREATININE 2.3 MG/DL 0.6-1.4 H [place] [facility] GFR 20.7 ML/MIN [facility] [address] Stage G4 - Severely decreased kidney fu nction The GFR is an estimate of the Glomerular Filtration Rate. It is an aid to assess a patient's renal function. It is not a conclusive diagnosis of kidney disease. GFR normal is >=90 The MDRD GFR calculation is considered valid between the ages of 18 and 75 years only. BUN/CREAT RATIO 26 8-36 N [place] [facility] [facility] GLUCOSE 156 MG/DL 70-100 H [place] [facility] CA 9.1 MG/DL 8.7-10.5 N [place] [facility] [facility] BILIRUBIN,TOTAL 0.4 MG/DL 0.1-1.3 N [facility] [address] AST 27 U/L 5-40 N [facility] [address] ALT 23 U/L 5-48 N [facility] [address] ALKALINE PHOSPHATASE 104 U/L 40-[facility] TOTAL PROTEIN 6.5 G/DL 5.9-8.3 N [facility] [address] ALBUMIN 4.0 G/DL 3.0-5.1 N [facility] [address] GLOBULIN 2.5 G/DL 1.5-3.5 N [facility] [address] ALB/GLOB RATIO 1.6 G/DL 1.0-3.0 N [facility] [address] ID Date Data Source [id number] 08/30/2020 02:25[facility] Name Value Range Interpretation Code Description Data Fiordaliza rce(s) Supporting Document(s) GLYCOSYLATED HGBA1C 7.1 % 4.1-6.5 H [facility] ID Date Data Source [id number] 08/30/2020 02:25:00 PM T [facility] [address] Name Value Range Interpretation Code Description Data Fiordaliza rce(s) Supporting Document(s) TRIGLYCERIDES 116 MG/DL 45-150 N [facility] [address] CHOLESTEROL 165 MG/DL 125-200 [facility] LDL CHOLESTEROL 80 MG/DL 50-130 N [facility] [address] HDL CHOLESTEROL 62 MG/DL 32-96 [facility] CHOL/HDL RATIO 2.7 0-4.3 [facility] ID Date Data Source [id number] 08/30/2020 02:25:00 PM [facility] Value Range Interpretation Code Description Data Fiordaliza rce(s) Supporting Document(s) VITAMIN B12 1240 PG/ML 211-2000 N [facility] [address] ID Date Data Source [id number] 08/30/2020 02:25:00 PM [facility] Value Range Interpretation Code Description Data Fiordaliza rce(s) Supporting Document(s) Vitamin D,25-HYDROXY 31.1 ng/ml 30-100 N [facility] Vitamin D Status Range De ficiency <20 ng/ml Insufficiency 20-29.9 ng/ml Sufficiency 30-100 ng/ml Toxicity >100 ng/ml Patients should not be tested for 72 hours post fluorescein dye angiography. A false elevation of result may occur. ID Date Data Source [id number] 08/17/2020 08:32:00 AM EDT [facility]) Name Value Range Interpretation Code Description Data Fiordaliza rce(s) Supporting Document(s) Prothrombin time (PT) 39.9 SEC 8.9-13.3 [facility] ([facility]) INR in Platelet poor plasma by Coagulation assay 3.5 0.0-3.6 [facility] ([facility]) Therapeutic Values of INR are generally between 2.0-3.0 except for Prosthetic Valves (High Risk 2.5-3.5) The use of INR is restricted to patient on stable oral anticoagulant therapy. ID Date Data Source [id number] 08/17/2020 10:04:00 AM T [facility] [address] Name Value Range Interpretation Code Description Data Fiordaliza rce(s) Supporting Document(s) PROTHROMBIN TIME 39.9 SEC 8.9-13.3 H [facility] [address] INR 3.5 0.0-3.6 N [facility] [address] Therapeutic Values of INR are generally between 2.0-3.0 except for Prosthetic Valves (High Risk 2.5-3.5) The use of INR is restricted to patient on stable oral anticoagulant therapy. ID Date Data Source [id number] 08/11/2020 02:21:00 [place] [address] Patient Name: Denisse Greene Exam Date: 08/11/20 [...] and pubic symphysis. Professional interpretation performed at [facility] . End of diagnostic report: [id number] Signed: Eliseo Mancini MD 08/12/20 1027 Interpreted by: Valentina Mancini ronTranscribed by: Eliseo Mancini Name Value Range Interpretation Code Description Data Fiordaliza rce(s) Supporting Document(s) ID Date Data Source [id number] 08/12/2020 08:05:00 AM EDT [facility] Name Value Range Interpretation Code Description Data Fiordaliza rce(s) Supporting Document(s) PROTHROMBIN TIME 66.0 SEC 8.9-13.3 [facility] INR 5.8 0.0-3.6 [facility] Critical Results given to ED per [...] oral anticoagulant therapy. ID Date Data Source [id number] 08/11/2020 01:28:00 PM EDT [facility] ([facility]) Name Value Range Interpretation Code Description Data Fiordaliza rce(s) Supporting Document(s) Prothrombin time (PT) 66.0 SEC 8.9-13.3 [facility] ([facility]) INR in Platelet poor plasma by Coagulation assay 5.8 0.0-3.6 Above upper panic limits [facility] ([facility]) Critical Results given to ED per Bar b by [id number] at 2017 08/11/20 called to Rachelle(office)at 8:05 am 08/12/20 --- 08/12/20804 --- INR previously reported as: 5.8 [facility] Critical Results given to ED per Alina by [id number] at 2017 08/11/20 Therapeutic Values of INR are generally between 2.0-3.0 except for Prosthetic Valves (High Risk 2.5-3.5) The use of INR is restricted to patient on stable oral anticoagulant therapy. ID Date Data Source [id number] 07/20/2020 01:41:00 PM EDT [facility] [address] Name Value Range Interpretation Code Description Data Fiordaliza rce(s) Supporting Document(s) PROTHROMBIN TIME 24.5 SEC 8.9-13.3 H [place] [facility] INR 2.2 0.0-3.6 N [facility] Therapeutic Values of INR are generally between 2.0-3.0 except for Prosthetic Valves (High Risk 2.5-3.5) The use of INR is restricted to patient on stable oral anticoagulant therapy. ID Date Data Source [id number] 07/20/2020 07:48:00 AM EDT [facility] [place] [place] Name Value Range Interpretation Code Description Data Fiordaliza rce(s) Supporting Document(s) Prothrombin time (PT) 24.5 SEC 8.9-13.3 [facility] (Card[facility]) INR in Platelet poor plasma by Coagulation assay 2.2 0.0-3.6 [facility] ([facility]) Therapeutic Values of INR are generally between 2.0-3.0 except for Prosthetic Valves (High Risk 2.5-3.5) The use of INR is restricted to patient on stable oral anticoagulant therapy. ID Date Data Source [id number] 07/05/2020 01:58:00 PM EDT [facility] [address] Name Value Range Interpretation Code Description Data Fiordaliza rce(s) Supporting Document(s) PROTHROMBIN TIME 21.5 SEC 8.9-13.3 [facility] INR 1.9 0.0-3.6 [facility] Therapeutic Values of INR are generally between 2.0-3.0 except for Prosthetic Valves (High Risk 2.5-3.5) The use of INR is restricted to patient on stable oral anticoagulant therapy. ID Date Data Source [id number] 07/05/2020 07:29:00 AM EDT [facility] [place] [place] Name Value Range Interpretation Code Description Data Fiordaliza rce(s) Supporting Document(s) INR in Platelet poor plasma by Coagulation assay 1.9 0.0-3.6 [facility] ([facility]) Therapeutic Values of INR are generally between 2.0-3.0 except for Prosthetic Valves (High Risk 2.5-3.5) The use of INR is restricted to patient on stable oral anticoagulant therapy. Prothrombin time (PT) 21.5 SEC 8.9-13.3 [facility] ([facility]) ID Date Data Source [id number] 06/03/2020 07:24:00 AM EDT [facility] [place] Name Value Range Interpretation Code Description Data [...] oral anticoagulant therapy. ID Date Data Source [id number] 06/03/2020 01:55:00 PM T [facility] [address] Name Value Range Interpretation Code Description Data Fiordaliza rce(s) Supporting Document(s) PROTHROMBIN TIME 34.4 SEC 8.9-13.3 H [facility] INR 3.0 0.0-3.6 N [facility] [address] Therapeutic Values of INR are generally between 2.0-3.0 except for Prosthetic Valves (High Risk 2.5-3.5) The use of INR is restricted to patient on stable oral anticoagulant therapy. ID Date Data Source [id number] 05/26/2020 03:22:00 PM EDT [facility] ([facility] [place] Name Value Range Interpretation Code Description Data [...] [facility]) Calcium 8.89 8.4-10.4 [facility] (Cardiology [facility]) Phosphate [Moles/volume] in Serum or Plasma 4.43 [facility] ([facility]) ID Date Data Source [id number] 05/26/2020 03:22:00 PM EDT [facility] [place] [place] Name Value Range Interpretation Code Description Data Fiordaliza rce(s) Supporting Document(s) Hemoglobin 10.5 [facility] ([facility]) White Blood Count 5.9 4.0-10.9 [facility] Platelets 235 150-450 [facility] Red Blood Count 3.43 4.70-6.20 [facility] Hematocrit 32.1 [facility] ([facility]) ID Date Data Source [id number] 05/26/2020 09:42:00 AM EDT [facility] ([facility]) Name Value Range Interpretation Code Description Data Fiordaliza rce(s) Supporting Document(s) White Blood Count 5.9 4.3-10.9 [facility] ([facility]) Hemoglobin 10.5 13.0-17.0 [facility] ([facility]) Red Blood Count 3.43 4.70-6.20 [facility] ([facility]) Platelets 235 130-400 [facility]) Hematocrit 32.1 39.0-50.0 [facility] ([facility]) ID Date Data Source [id number] 05/26/2020 09:42:00 AM EDT [facility] ([facility]) Name Value Range Interpretation Code Description Data Fiordaliza rce(s) Supporting Document(s) Glucose 157 70-100 [facility] Blood Urea Nitrogen 80.7 5-21 [facility] ([facility]) Creatinine 2.35 0.6-1.5 [facility] ([facility]) Glomerular filtration rate/1.73 sq M.pre dicted [Volume Rate/Area] in Serum or Plasma by Creatinine-based formula (MDRD) 20 [facility] ([facility]) Potassium 5.30 3.5-5.3 [facility] Chloride 103.2 98-110 [facility] Sodium 135.4 136-146 [facility] Carbon Dioxide 21.5 20-32 [facility] ([facility]) Phosphorus 4.43 [facility] ([facility]) Calcium 8.89 8.4-10.4 [facility] Albumin 3.9 3.5-4.7 [facility] ID Date Data Source [id number] 05/10/2020 05:28:00 PM EDT [facility] Name Value Range Interpretation Code Description Data Fiordaliza rce(s) Supporting Document(s) WHITE BLOOD COUNT 7.08 10^3/uL 4.00-10.50 N [facility] RED BLOOD COUNT 3.27 10^6/uL 3.90-5.20 L [facility] HEMOGLOBIN 10.0 G/DL 11.5-15.6 [facility] HEMATOCRIT 31.3 % 35.0-46.0 [facility] MCV 95.7 FL 80.0-100.0 N [facility] MCH 30.6 PG 27.0-34.0 N [facility] MCHC 31.9 G/DL 32-36 [facility] RDW 15.7 % 11.5-14.5 [facility] PLATELET COUNT 221 10^3/uL 130-400 [facility] MPV 11.6 FL 8.7-13.2 N [facility] GRAN % (AUTO) 66.2 % 42.0-75.0 N [facility] [facility] LYMPH % (AUTO) 17.4 % 20.0-51.0 L [facility] MONO % (AUTO) 11.6 % 2.0-15.0 [facility] EOS % (AUTO) 3.8 % 0.0-11.0 N [facility] BASO % (AUTO) 0.7 % 0.0-2.0 N [facility] IG % (AUTO) 0.3 % 1.00-5.00 [facility] IG # (AUTO) 0.0 10^3/uL <0.5 [facility] GRAN # (AUTO) 4.69 10^3/uL 1.50-6.50 N [facility] LYMPH # (AUTO) 1.2 k/uL 1.0-5.0 N [facility] MONO # (AUTO) 0.82 k/uL 0.20-1.50 N [facility] EOS # (AUTO) 0.27 10^3/uL 0.00-1.10 N [facility] BASO # (AUTO) 0.05 10^3/uL 0.00-0.20 [facility] ID Date Data Source [id number] 05/10/2020 05:38:00 PM EDT [facility] [address] Name Value Range Interpretation Code Description Data Fiordaliza rce(s) Supporting Document(s) SODIUM 138 MEQ/L 135-145 N [facility] POTASSIUM 5.3 MEQ/L 3.5-5.3 N [facility] CHLORIDE 107 MEQ/L 94-110 N [facility] CARBON DIOXIDE 18 MEQ/L 22-33 L [facility] ANION GAP 18 5-16 [facility] BLOOD UREA NITRO 82 MG/DL 7-25 H [facility] CREATININE 2.4 MG/DL 0.6-1.4 [facility] GFR 19.7 ML/MIN [facility] [address] Stage G4 - Severely decreased kidney fu nction The GFR is an estimate of the Glomerular Filtration Rate. It is an aid to assess a patient's renal function. It is not a conclusive diagnosis of kidney disease. GFR normal is >=90 The MDRD GFR calculation is considered valid between the ages of 18 and 75 years only. BUN/CREAT RATIO 34 8-36 N [facility] [address] GLUCOSE 90 MG/DL 70-100 [facility] CA 9.2 MG/DL 8.7-10.5 [facility] BILIRUBIN,TOTAL 0.4 MG/DL 0.1-1.3 [facility] AST 23 U/L 5-40 [facility] ALT 16 U/L 5-48 [facility] ALKALINE PHOSPHATASE 95 U/L 40-140 [facility] TOTAL PROTEIN 6.5 G/DL 5.9-8.3 N [facility] [address] ALBUMIN 3.9 G/DL 3.0-5.1 N [facility] GLOBULIN 2.6 G/DL 1.5-3.5 [facility] ALB/GLOB RATIO 1.5 G/DL 1.0-3.0 N [facility] [address] ID Date Data Source [id number] 05/05/2020 07:03:00 AM EDT [facility] Name Value Range Interpretation Code Description Data Fiordaliza rce(s) Supporting Document(s) Prothrombin time (PT) 34.4 SEC 8.9-13.3 [facility] (Cardiology [facility]) INR in Platelet poor plasma by Coagulation assay 3.0 0.0-3.6 [facility] Therapeutic Values of INR are generally between 2.0-3.0 except for Prosthetic Valves (High Risk 2.5-3.5) The use of INR is restricted to patient on stable oral anticoagulant therapy. ID Date Data Source [id number] 05/05/2020 01:44:00 PM [facility] Name Value Range Interpretation Code Description Data Fiordaliza rce(s) Supporting Document(s) PROTHROMBIN TIME 34.4 SEC 8.9-13.3 [facility] INR 3.0 0.0-3.6 [facility] Therapeutic Values of INR are generally between 2.0-3.0 except for Prosthetic Valves (High Risk 2.5-3.5) The use of INR is restricted to patient on stable oral anticoagulant therapy. ID Date Data Source [id number] 04/06/2020 01:36:00 PM [facility] Name Value Range Interpretation Code Description Data Fiordaliza rce(s) Supporting Document(s) PROTHROMBIN TIME 28.9 SEC 8.9-13.3 H [facility] INR 2.6 0.0-3.6 [facility] Therapeutic Values of INR are generally between 2.0-3.0 except for Prosthetic Valves (High Risk 2.5-3.5) The use of INR is restricted to patient on stable oral anticoagulant therapy. ID Date Data Source [id number] 04/06/2020 07:07:00 AM EDT [facility] [place] Name Value Range Interpretation Code Description Data Fiordaliza rce(s) Supporting Document(s) INR in Platelet poor plasma by Coagulation assay 2.6 0.0-3.6 [facility]) Therapeutic Values of INR are generally between 2.0-3.0 except for Prosthetic Valves (High Risk 2.5-3.5) The use of INR is restricted to patient on stable oral anticoagulant therapy. Prothrombin time (PT) 28.9 SEC 8.9-13.3 [facility] (Cardiology [facility]) ID Date Data Source [id number] 03/08/2020 09:20:00 AM EDT [facility] [place] Name Value Range Interpretation Code Description Data [...] [facility]) ID Date Data Source [id number] 03/08/2020 01:28:00 PM T [facility] [address] Name Value Range Interpretation Code Description Data Fiordaliza rce(s) Supporting Document(s) PROTHROMBIN TIME 33.2 SEC 8.9-13.3 H [facility] INR 2.9 0.0-3.6 N [facility] [address] Therapeutic Values of INR are generally between 2.0-3.0 except for Prosthetic Valves (High Risk 2.5-3.5) The use of INR is restricted to patient on stable oral anticoagulant therapy. ID Date Data Source [id number] 02/25/2020 12:38:00 PM EDT [facility] ([facility] [place] Name Value Range Interpretation Code Description Data Fiordaliza rce(s) Supporting Document(s) White Blood Count 7.8 4.0-10.0 [facility] ([facility]) Red Blood Count 3.47 4.00-5.40 [facility] (Cardio logy [facility]) Platelets 224 172-450 [facility] (Cardiology [facility]) Hemoglobin 10.7 12.0-16.0 [facility] ([facility]iology [facility]) Hematocrit 33.6 36.0-47.0 [facility] ([facility]) ID Date Data Source [id number] 02/25/2020 12:38:00 PM EDT [facility] ([facility] [place] Name Value Range Interpretation Code Description Data Fiordaliza rce(s) Supporting Document(s) Glucose 187 70-100 [facility] (Cardiology [facility]) Blood Urea Nitrogen 87.4 7-25 [facility] (Ca rdiology [facility]) Creatinine 2.45 0.6-1.4 [facility] ([facility]) Glomerular filtration rate/1.73 sq M.pre dicted [Volume Rate/Area] in Serum or Plasma by Creatinine-based formula (MDRD) 19 [facility] ([facility]) Sodium 135.2 135-145 [facility] ([facility]) Potassium 4.20 3.5-5.3 [facility] ([facility]) Chloride 103.3 98-110 [facility] ([facility]) Carbon Dioxide 24.4 20-32 [facility] ([facility]iol [facility]gy [facility]) Albumin 4.1 3.5-4.7 [facility] ([facility]) Calcium 9.25 8.4-10.4 [facility] ([facility]) Phosphorus 4.15 [facility] ([facility]) ID Date Data Source [id number] 02/10/2020 01:19:00 PM EDT [facility] Name Value Range Interpretation Code Description Data Fiordaliza rce(s) Supporting Document(s) WHITE BLOOD COUNT 10.64 10^3/uL 4.00-10.50 [facility] RED BLOOD COUNT 3.43 10^6/uL 3.90-5.20 [facility] HEMOGLOBIN 10.4 G/DL 11.5-15.6 L [facility] HEMATOCRIT 33.7 % 35.0-46.0 L [facility] MCV 98.3 FL 80.0-100.0 N [facility] MCH 30.3 PG 27.0-34.0 N [facility] MCHC 30.9 G/DL 32-36 L [facility] RDW 16.1 % 11.5-14.5 [facility] PLATELET COUNT 252 10^3/uL 130-400 N [facility] MPV 12.1 FL 8.7-13.2 N [facility] GRAN % (AUTO) 76.0 % 42.0-75.0 [facility] LYMPH % (AUTO) 11.8 % 20.0-51.0 L [facility] MONO % (AUTO) 8.6 % 2.0-15.0 N [facility] EOS % (AUTO) 2.2 % 0.0-11.0 N [facility] BASO % (AUTO) 0.8 % 0.0-2.0 N [facility] IG % (AUTO) 0.6 % 1.00-5.00 [facility] IG # (AUTO) 0.1 10^3/uL <0.5 [facility] GRAN # (AUTO) 8.10 10^3/uL 1.50-6.50 H [facility] LYMPH # (AUTO) 1.3 k/uL 1.0-5.0 N [facility] MONO # (AUTO) 0.91 k/uL 0.20-1.50 N [facility] EOS # (AUTO) 0.23 10^3/uL 0.00-1.10 N [facility] BASO # (AUTO) 0.08 10^3/uL 0.00-0.20 N [facility] NRBC% 0.2 % 0-2 N [facility] NRBC# 0.02 # [facility] ID Date Data Source [id number] 02/10/2020 01:45:00 PM EDT [facility] Name Value Range Interpretation Code Description Data Fiordaliza rce(s) Supporting Document(s) SODIUM 139 MEQ/L 135-145 N [facility] POTASSIUM 5.4 MEQ/L 3.5-5.3 [facility] CHLORIDE 108 MEQ/L 94-110 N [facility] CARBON DIOXIDE 20 MEQ/L 22-33 [facility] ANION GAP 16 5-16 N [facility] BLOOD UREA NITRO 82 MG/DL 7-25 [facility] CREATININE 2.4 MG/DL 0.6-1.4 [facility] GFR 19.7 ML/MIN [facility] Stage G4 - Severely decreased kidney fu nction The GFR is an estimate of the Glomerular Filtration Rate. It is an aid to assess a patient's renal function. It is not a conclusive diagnosis of kidney disease. GFR normal is >=90 The MDRD GFR calculation is considered valid between the ages of 18 and 75 years only. BUN/CREAT RATIO 34 8-36 N [facility] GLUCOSE 171 MG/DL 70-100 [facility] CA 9.6 MG/DL 8.7-10.5 N [facility] BILIRUBIN,TOTAL 0.3 MG/DL 0.1-1.3 [facility] AST 28 U/L 5-40 N [facility] [address] ALT 21 U/L 5-48 N [facility] [address] ALKALINE PHOSPHATASE 116 U/L 40-140 N [facility]th TOTAL PROTEIN 6.9 G/DL 5.9-8.3 N [facility] [address] ALBUMIN 4.4 G/DL 3.0-5.1 N [facility] [address] GLOBULIN 2.5 G/DL 1.5-3.5 N [facility] [address] ALB/GLOB RATIO 1.8 G/DL 1.0-2.7 N [facility] [address] ID Date Data Source [id number] 02/10/2020 01:45:00 PM EDT [facility] [address] Name Value Range Interpretation Code Description Data Fiordaliza rce(s) Supporting Document(s) GLYCOSYLATED HGBA1C 7.1 % 4.1-6.5 H [facility] ID Date Data Source [id number] 02/10/2020 01:45:00 PM EDT [facility] [address] Name Value Range Interpretation Code Description Data Fiordaliza rce(s) Supporting Document(s) TRIGLYCERIDES 91 MG/DL 45-150 N [facility] [address] CHOLESTEROL 161 MG/DL 125-200 N [facility] [address] LDL CHOLESTEROL 87 MG/DL 50-130 N [facility] [address] HDL CHOLESTEROL 56 MG/DL 32-96 N [facility] [address] CHOL/HDL RATIO 2.9 0-4.3 N [facility] [address] ID Date Data Source [id number] 02/10/2020 01:45:00 PM EDT [facility] [address] Name Value Range Interpretation Code Description Data Fiordaliza rce(s) Supporting Document(s) VITAMIN B12 [id number] PG/ML 211-2000 N [facility] [address] ID Date Data Source [id number] 02/10/2020 08:29:00 AM EDT [facility] ([facility]) Name Value Range Interpretation Code Description Data Fiordaliza rce(s) Supporting Document(s) Prothrombin time (PT) 33.7 SEC 8.9-13.3 [facility] ([facility]) INR in Platelet poor plasma by Coagulation assay 3.0 0.0-3.6 [facility] ([facility]) Therapeutic Values of INR are generally between 2.0-3.0 except for Prosthetic Valves (High Risk 2.5-3.5) The use of INR is restricted to patient on stable oral anticoagulant therapy. ID Date Data Source [id number] 02/10/2020 01:21:00 PM EDT [facility] Name Value Range Interpretation Code Description Data Fiordaliza rce(s) Supporting Document(s) PROTHROMBIN TIME 33.7 SEC 8.9-13.3 [facility] INR 3.0 0.0-3.6 N [facility] [address] Therapeutic Values of INR are generally between 2.0-3.0 except for Prosthetic Valves (High Risk 2.5-3.5) The use of INR is restricted to patient on stable oral anticoagulant therapy. ID Date Data Source [id number] 01/12/2020 01:32:00 PM EST [facility] Name Value Range Interpretation Code Description Data Fiordaliza rce(s) Supporting Document(s) PROTHROMBIN TIME 29.8 SEC 8.9-13.3 [facility] INR 2.6 0.0-3.6 N [facility] [address] Therapeutic Values of INR are generally between 2.0-3.0 except for Prosthetic Valves (High Risk 2.5-3.5) The use of INR is restricted to patient on stable oral anticoagulant therapy. ID Date Data Source [id number] 01/12/2020 07:38:00 AM EST [facility] [place] [place] Name Value Range Interpretation Code Description Data Fiordaliza rce(s) Supporting Document(s) Prothrombin time (PT) 29.8 SEC 8.9-13.3 [facility] (Cardiology [facility]) INR in Platelet poor plasma by Coagulation assay 2.6 0.0-3.6 [facility] ([facility]) Therapeutic Values of INR are generally between 2.0-3.0 except for Prosthetic Valves (High Risk 2.5-3.5) The use of INR is restricted to patient on stable oral anticoagulant therapy. ID Date Data Source [id number] 12/15/2019 08:26:00 AM EST [facility] ([facility] [place] Name Value Range Interpretation Code Description Data [...] oral anticoagulant therapy. ID Date Data Source [id number] 12/15/2019 01:19:00 PM [facility] Name Value Range Interpretation Code Description Data Fiordaliza rce(s) Supporting Document(s) PROTHROMBIN TIME 34.4 SEC 8.9-13.3 [facility] INR 3.0 0.0-3.6 N [facility] Therapeutic Values of INR are generally between 2.0-3.0 except for Prosthetic Valves (High Risk 2.5-3.5) The use of INR is restricted to patient on stable oral anticoagulant therapy. ID Date Data Source [id number] 12/01/2019 07:52:00 AM EST [facility] ([facility]) Name Value Range Interpretation Code Description Data Fiordaliza rce(s) Supporting Document(s) Prothrombin time (PT) 41.2 SEC 8.9-13.3 [facility] (Cardiology [facility]) INR in Platelet poor plasma by Coagulation assay 3.6 0.0-3.6 [facility] (Cardiology [facility]) Therapeutic Values of INR are generally between 2.0-3.0 except for Prosthetic Valves (High Risk 2.5-3.5) The use of INR is restricted to patient on stable oral anticoagulant therapy. ID Date Data Source [id number] 12/01/2019 12:45:00 PM [facility] [place] [facility] Name Value Range Interpretation Code Description Data Fiordaliza rce(s) Supporting Document(s) PROTHROMBIN TIME 41.2 SEC 8.9-13.3 [facility] INR 3.6 0.0-3.6 N [facility] Therapeutic Values of INR are generally between 2.0-3.0 except for Prosthetic Valves (High Risk 2.5-3.5) The use of INR is restricted to patient on stable oral anticoagulant therapy. ID Date Data Source [id number] 11/21/2019 01:32:00 PM EST [facility] ([facility]) Name Value Range Interpretation Code Description Data Fiordaliza rce(s) Supporting Document(s) White Blood Count 8.1 4.0-10.0 [facility] Platelets 203 172-450 [facility] Hemoglobin 10.7 12.0-16.0 [facility] ([facility]) Red Blood Count 3.56 4.00-5.40 [facility] ([facility]io [facility]y [facility]) Hematocrit 33.5 36.0-47.0 [facility] ([facility]) ID Date Data Source [id number] 11/21/2019 01:32:00 PM EST [facility] ([facility]i [facility]y [facility]) Name Value Range Interpretation Code Description Data Fiordaliza rce(s) Supporting Document(s) Glucose 61 70-100 [facility] ([facility]) Blood Urea Nitrogen 78.5 7-25 [facility] (Ca [facility]diology [facility]) Glomerular filtration rate/1.73 sq M.pre dicted [Volume Rate/Area] in Serum or Plasma by Creatinine-based formula (MDRD) 20 [facility] ([facility]) Creatinine 2.36 0.6-1.4 [facility] ([facility]) Sodium 137.3 135-145 [facility] ([facility] Chloride 103.2 94-110 [facility] ([facility] Potassium 4.45 3.5-5.3 [facility] ([facility]) Carbon Dioxide 26.4 22-33 [facility] ([facility]iol [facility]gy [facility]) Phosphorus 4.90 [facility] ([facility]) Calcium 9.72 8.7-10.5 [facility] ([facility]) Albumin 4.1 3.5-5.3 [facility] ([facility]) Procedure Social History Code Duration Value Status Description Data Source(s ) Smoking 09/13/2020 12:00:00 AM EDT Patient has never smoked co mpleted Patient has never smoked [facility] ([facility]) Smoking 09/06/2020 12:00:00 AM EDT Former Smoker completed Former Smoker eCW1 ([facility]) Vital Signs ID Date Data Source [id number] Name Value Range Interpretation Code Description Data Source(s) Heart rate 64 /min 64 /min [facility] ([facility]) Regular Body mass index (BMI) [Ratio] 28.9 kg/m2 28.9 k g/m2 [facility] ([facility]) Body height 61 [in_i] 61 [in_i] [facility] ([facility]) 5'1" Body weight 153.00 [lb_av] 153.00 [lb_av] MEDEN T ([facility]) Diastolic blood pressure 64 mm[Hg] 64 mm[Hg] [facility] ([facility]) sitting, large cuff Systolic blood pressure 134 mm[Hg] 134 mm[Hg] M EDENT ([facility]) sitting, large cuff Respiratory rate 16 /min 16 /min [facility] ( [facility]) Diastolic blood pressure 78 mm[Hg] 78 mm[Hg] eCW1 ([facility]) Systolic blood pressure 126 mm[Hg] 126 mm[Hg] e CW1 ([facility]) Body temperature 97.6 [degF] 97.6 [degF] eCW1 ( [facility]) Respiratory rate 16 /min 16 /min eCW1 ([facility]) Heart rate 74 /min 74 /min eCW1 ([facility]) Body mass index (BMI) [Ratio] 29.81 kg/m2 29.81 kg/m2 eCW1 ([facility]) Body height 60.5 [in_i] 60.5 [in_i] eCW1 ([facility]) Body weight 155.2 [lb_av] 155.2 [lb_av] eCW1 ([facility]) Diastolic blood pressure 74 mm[Hg] 74 mm[Hg] [facility] ([facility]) sitting, large cuff Systolic blood pressure 126 mm[Hg] 126 mm[Hg] M EDENT ([facility]) sitting, large cuff Respiratory rate 16 /min 16 /min [facility] ( [facility]) Heart rate 60 /min 60 /min [facility] ([facility]io [facility]) Regular Body mass index (BMI) [Ratio] 27.8 kg/m2 27.8 k g/m2 [facility] ([facility]) Body height 61 [in_i] 61 [in_i] [facility] ([facility]i [facility]) 5'1" Body weight 147.00 [lb_av] 147.00 [lb_av] MEDEN T ([facility]) Body weight 67.757 kg 67.757 kg MED[facility] ([facility], ) Body mass index (BMI) [Ratio] 28.2 kg/m2 28.2 k g/m2 [facility] ([facility], ) Body weight 149.38 [lb_av] 149.38 [lb_av] MEDEN T ([facility], ) Body height 61 [in_i] 61 [in_i] MED[facility] ([facility]) 5'1" Diastolic blood pressure 68 mm[Hg] 68 mm[Hg] [facility] ([facility]) Systolic blood pressure 182 mm[Hg] 182 mm[Hg] M EDENT ([facility]) Diastolic blood pressure 64 mm[Hg] 64 mm[Hg] eCW1 ([facility]) Systolic blood pressure 158 mm[Hg] 158 mm[Hg] e CW1 ([facility]) Body temperature 95.4 [degF] 95.4 [degF] eCW1 ( [facility]) Heart rate 58 /min 58 /min eCW1 ([facility]) Body mass index (BMI) [Ratio] 28.23 kg/m2 28.23 kg/m2 eCW1 ([facility]) Body height 60.5 [in_us] 60.5 [in_us] eCW1 ([facility]) Body weight Measured 147 [lb_av] 147 [lb_av] eC W1 ([facility]) Body weight 67.813 kg 67.813 kg MEDENT ([facility], ) Body mass index (BMI) [Ratio] 28.2 kg/m2 28.2 k g/m2 [facility] ([facility], ) Body weight 149.50 [lb_av] 149.50 [lb_av] MEDEN T ([facility], ) Body height 61 [in_i] 61 [in_i] MED[facility] ([facility], ) 5'1" Diastolic blood pressure 84 mm[Hg] 84 mm[Hg] [facility] ([facility], ) Systolic blood pressure 166 mm[Hg] 166 mm[Hg] JUMA ([facility], ) Diastolic blood pressure 66 mm[Hg] 66 mm[Hg] MANUEL ([facility]) Sitting, large cuff Systolic blood pressure 126 mm[Hg] 126 mm[Hg] M JUMA ([facility]) Sitting, large cuff Respiratory rate 16 /min 16 /min MANUEL ( [facility]) Heart rate 60 /min 60 /min MANUEL ([facility]io [facility]) Regular Body mass index (BMI) [Ratio] 28.3 kg/m2 28.3 k g/m2 MANUEL ([facility]) Body height 61 [in_i] 61 [in_i] MANUEL (Cardi [facility]y [facility]) 5'1" Body weight 150.00 [lb_av] 150.00 [lb_av] ROSAURA Terry ([facility])
[2021-01-04 16:44] LABS: BASO # 0.1 10^3/uL (0.0-0.2); BASO % 0.7 % (0.0-1.0); EOS # 0.4 10^3/uL (0.0-0.5); EOS % 4.4 % (0.0-3.0); HEMATOCRIT 25.6 % (36.0-47.0); HEMOGLOBIN 7.8 g/dl (12.0-15.5); LYMPH # 1.1 10^3/uL (1.5-5.0); LYMPH % 12.7 % (24.0-44.0); MEAN CORPUSCULAR HEMOGLOBIN 29.8 pg (27.0-33.0); MEAN CORPUSCULAR HGB CONC 30.5 g/dl (32.0-36.5); MEAN CORPUSCULAR VOLUME 97.7 fl (80.0-96.0); MONO # 0.7 10^3/uL (0.0-0.8); MONO % 8.1 % (2.0-8.0); NEUTROPHILS # 6.1 10^3/uL (1.5-8.5); NEUTROPHILS % 73.5 % (36.0-66.0); PLATELET COUNT, AUTOMATED 258 10^3/uL (150-450); RED BLOOD COUNT 2.62 10^6/uL (4.00-5.40); WHITE BLOOD COUNT 8.3 10^3/uL (4.0-10.0)
--- OUTSIDE RECORDS SUMMARY | 2021-01-04 18:17 | CCD ---
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 If you continue you may have access to information: Regarding HIV / AIDS; Provided by facilities licensed or operated by the [facility] Office of Mental Health; or Provided by the [facility] Office for People With Developmental Disabilities. If such information is present, then the following [facility] mandated warning applies: This information has [...] law may result in a fine or assisted sentence or both. A general authorization for the release of medical or other information is NOT sufficient authorization for further disc losure. Allergies and Adverse Reactions Type Description Substance Reaction Status Data Source(s ) AmLODIPine Besylate AmLODIPine Besylate Amlodipine 10 MG Oral Table t diarrhea Active eCW1 (Formerly [facility]) Family History Family Member Name Family Member Gender Family Member Status Date o f Status Description Data Source(s) Unknown Unknown Problem MEDENT ([facility]) SISTER Unknown Unknown Problem [facility] ([facility]) Encounters Encounter Providers Location Date Indications Data Source(s ) Outpatient Attender: Crain MORRISON 01/04/2021 09:19:00 A M EST lab [facility] lab Outpatient Attender: Carin MORRISON 12/02/2020 08:34:00 A M EST Lab [facility] Lab Outpatient Attender: Carin MORRISON 11/17/2020 07:53:00 A M EST Lab [facility] Lab Outpatient Attender: Carin MORRISON 11/08/2020 07:46:00 A M EST Lab [facility] Lab Outpatient Attender: Carin MORRISON 2020 07:38:00 A M EST Lab [facility] Lab Outpatient Attender: Carin MORRISON 09/14/2020 07:59:00 A M EDT Lab [facility] Lab Outpatient Attender: Carin MORRISON Main Office 09/13/2020 09:15:00 AM EDT MEDENT ([facility]) Outpatient [address] [facility] [address] 09/06/2020 12:00:00 AM EDT eCW1 (Formerly [facility]) [facility] [place] [address] [facility] [address] 09/03/2020 12:00:00 AM EDT eCW1 (Formerly [facility]) Outpatient Attender: Carin MORRISON 09/01/2020 07:45:00 A M EDT Lab [facility] Lab Outpatient Attender: Courtney MORRISON 08/30/2020 07:25:0 0 AM EDT lab 1 of 1 [facility] lab 1 of 1 Outpatient Attender: Maria Del Carmen MORRISON 08/17/2020 08:20:00 AM EDT lab 1 of 1 [facility] lab 1 of 1 Outpatient Attender: GEORGI GODFREY MD 08/11/2020 01:29:0 0 PM EDT Xray [facility] Xray Outpatient Attender: Maria Del Carmen MORRISON 08/11/2020 01:26:00 PM EDT Lab [facility] Lab Outpatient Attender: Carin MORRISON 07/20/2020 07:42:00 A M EDT lab 1 of 1 [facility] lab 1 of 1 Outpatient Attender: Carin MORRISON 07/05/2020 07:25:00 A M EDT lab 1 of 1 [facility] lab 1 of 1 Outpatient Attender: Carin MORRISON Main Office 06/10/2020 09:15:00 AM EDT MEDENT ([facility]) Outpatient Attender: Carin MORRISON 06/03/2020 07:21:00 A M EDT lab 1 of 1 [facility] lab 1 of 1 Outpatient Attender: Diana Ramirez 05/10/2020 02:06:00 PM EDT L ab [facility] Lab Outpatient Attender: Carin MORRISON 05/05/2020 07:01:00 A M EDT Lab [facility] Lab Outpatient Attender: Althea Merritt/Huy/Rolf/R eindl 04/19/2020 09:15:00 AM EDT MEDENT ([facility]) Outpatient Attender: Carin MORRISON 04/06/2020 07:04:00 A M EDT Lab [facility] Lab Outpatient Attender: Carin MORRISON 03/08/2020 09:08:00 A M EDT Lab [facility] [address], [facility] [address] 03/04/2020 12:00:00 AM EDT eCW1 (Formerly [facility]) Outpatient Attender: Courtney MORRISON 02/10/2020 08:29:0 0 AM EDT Lab [facility] Lab Outpatient Attender: Carin MORRISON 02/10/2020 08:26:00 A M EDT Lab [facility] Lab Outpatient Attender: Sanna Merritt/Huy/Rolf/ Reindl 01/12/2020 12:15:00 PM EST MEDENT ([facility]) Outpatient Attender: Maria Del Carmen MORRISON 01/12/2020 07:33:00 AM EST lab [facility] lab Outpatient 12/15/2019 01:08:00 PM EST [facility] Outpatient Attender: Maria Del Carmen MORRISON 12/15/2019 08:21:00 AM EST Lab [facility] Lab Outpatient Attender: Carin MORRISON Main Office 12/09/2019 11:45:00 AM EST MEDENT ([facility]) Outpatient Attender: Althea Merritt/Huy/Rolf/Medina eimarychuyl 12/02/2019 08:15:00 AM EST MEDENT ([facility]) Outpatient Attender: Maria Del Carmen MORRISON 12/01/2019 07:41:00 AM EST lab [facility] lab Immunizations Vaccine Date Status Description Data Source(s) Vitamin B-12 1000mcg/1mL (Cyanocobalamin) 09/06/2020 10:26:00 AM EDT completed eCW1 (Former[facility]) influenza, recombinant, quadrIvalent,injectable, prese rvative free 09/06/2020 10:25:00 AM EDT completed eCW1 ([facility]) Medications Medication Brand Name Start Date Product Form Dose Route Admi nistrative Instructions Pharmacy Instructions Status Indications Reaction Description Data Source(s) 100 unit/mL (3 mL) 12/17/2020 12:00:00 AM EST insulin pen 15 INJECT 35 UNITS SUBCUTANEOUSLY ONCE DAILY INJECT 35 UNITS SUBCUTANEOUSLY ONCE DAILY SOLD: 12/20/2020 [facility] 100 mcg/0.5 mL 12/07/2020 12:00:00 AM EST suspension 0 INJECT BY [facility] (FIRST DOSE) INJECT BY [facility] (FIRST DOSE) SOLD: 12/07/2020 [facility] BLOOD [...] EDT ORAL active [facility] ([facility] calcium acetate 667 MG Oral Capsule Calcium Acetate (Phos Bi nder) 09/12/2020 12:00:00 AM EDT ORAL active M EDENT ([facility]) Hydralazine Hydrochloride 10 MG Oral Tablet Hydralazine HCL 09/12/2020 12:00:00 AM EDT ORAL active [facility] ([facility]) 20 mg 09/06/2020 12:00:00 AM EDT [...] ORAL active MEDENT ([facility]) 80 mg 08/27/2020 12:00:00 AM EDT tablet [...] EDT ORAL active MEDENT ([facility]) Hydralazine Hydrochloride 10 MG Oral Tablet [...] WITH MEALS SOLD: 12/19/2019 [facility] Calcitriol 0.37606 MG Oral Capsule 0.25 mcg CALCITRIOL 11/10/2019 [...] THREE TIMES A DAY SOLD: 12/19/2019 [facility] BLOOD SUGAR DIAGNOSTIC 10/20/2019 12:00:00 AM EST [...] moreira Policy Moreira Plan Information AETNA MEDICARE [id number] SP [id number] MEDICARE [id number] SP [id number] SELF PAY AETNA MEDICARE ADV [id number] SP [id number] AETNA MEDICARE [id number] SP [id number] SELF PAY AETNA MEDICARE ADV [id number] SP [id number] SELF PAY AETNA MEDICARE ADV [id number] SP M [id number] SELF PAY AETNA MEDICARE ADV [id number] SP M [id number] AETNA MEDICARE [id number] SP [id number] SELF PAY AETNA MEDICARE ADV [id number] SP M [id number] AETNA MEDICARE [id number] SP [id number] SELF PAY AETNA MEDICARE ADV [id number] SP M [id number] SELF PAY AETNA MEDICARE ADV [id number] SP M [id number] SELF PAY AETNA MEDICARE ADV [id number] SP M [id number] SELF PAY AETNA MEDICARE ADV [id number] SP M [id number] SELF PAY AETNA MEDICARE ADV [id number] SP M [id number] SELF PAY AETNA MEDICARE ADV [id number] SP M [id number] SELF PAY AETNA MEDICARE ADV [id number] SP M [id number] SELF PAY AETNA MEDICARE ADV [id number] SP M [id number] SELF PAY AETNA MEDICARE ADV [id number] SP M [id number] SELF PAY AETNA MEDICARE ADV [id number] SP M [id number] SELF PAY AETNA MEDICARE ADV [id number] SP M [id number] SELF PAY AETNA MEDICARE ADV [id number] SP M [id number] SELF PAY AETNA MEDICARE ADV [id number] SP M [id number] SELF PAY AETNA MEDICARE ADV [id number] SP M [id number] SELF PAY AETNA MEDICARE ADV [id number] SP M [id number] AETNA MEDICARE O [id number] S [id number] AETNA MEDICARE [id number] SP [id number] SELF PAY AETNA MEDICARE ADV [id number] SP M [id number] SELF PAY AETNA MEDICARE ADV [id number] SP M [id number] SELF PAY AETNA MEDICARE ADV [id number] SP M [id number] SELF PAY AETNA MEDICARE ADV [id number] SP M [id number] SELF PAY AETNA MEDICARE ADV [id number] SP M [id number] SELF PAY AETNA MEDICARE ADV [id number] SP M [id number] SELF PAY AETNA MEDICARE ADV [id number] SP M [id number] SELF PAY AETNA MEDICARE ADV [id number] SP M [id number] ANSI-Medicare Part B [id number] ANSI-Medicare Part B [id number] ANSI-Medicare Part B [id number] ANSI-Medicare Part B [id number] SELF PAY AETNA MEDICARE ADV [id number] SP M [id number] ANSI-Medicare Part B [id number] ANSI-Medicare Part B [id number] SELF PAY AETNA MEDICARE ADV [id number] SP M [id number] Today's Options PFFS Commercial [id number] Self [id number] Medicare (Part B) Medicare Primary [id number] Self [id number] Medicaid Spenddown Medigap Part B [id number] Self [id number] Medicaid Medigap Part B [id number] Self [id number] [facility] [id number] Self [id number] Aetna Medicare Commercial [id number] Self [id number] U/HC Medicare Solutions Commercial [id number] Self [id number] AETNA MEDICARE [id number] SP [id number] SELF PAY AETNA MEDICARE ADV [id number] SP M [id number] ANSI-Medicare Part B [id number] ANSI-Medicare Part B [id number] [facility] [id number] 12 Self [id number] [place] Medicare Primary [id number] Self [id number] Aetna Commercial [id number] Self [id number] SELF PAY AETNA MEDICARE ADV [id number] SP M [id number] MEDICARE [id number] SP [id number] SELF PAY AETNA MEDICARE ADV [id number] SP M [id number] Aarp Medigap Part B [id number] 12 Self [id number] Medicare Upstate/[facility] [place] Medicare Primary [id number] Self [id number] SELF PAY AETNA MEDICARE ADV [id number] SP M [id number] SELF PAY AETNA MEDICARE ADV [id number] SP M [id number] Today's Options PFFS Commercial [id number] Self [id number] Medicare (Part B) Medicare Primary [id number] Self [id number] Medicaid Spenddown Medigap Part B [id number] Self [id number] Medicaid Medigap Part B [id number] Self [id number] [facility] Medigap Part B [id number] Self [id number] Aetna Medicare Commercial [id number] Self [id number] Today's Options PFFS Commercial [id number] Self [id number] Medicare (Part B) Medicare Primary [id number] Self [id number] Medicaid Spenddown Medigap Part B [id number] Self [id number] Medicaid Medigap Part B [id number] Self [id number] [facility] Medigap Part B [id number] Self [id number] Aetna Medicare Commercial [id number] Self [id number] Aarp Medigap Part B [id number] 12 Self [id number] Medicare [place]/[facility] [place] Medicare Primary [id number] Self [id number] ANSI-Medicare Part B [id number] ANSI-Medicare Part B [id number] SELF PAY AETNA MEDICARE ADV [id number] SP M [id number] AETNA MEDICARE COMPLETE G [id number] Self [id number] SELF PAY AETNA MEDICARE ADV [id number] SP M [id number] ANSI-Medicare Part B [id number] ANSI-Medicare Part B [id number] Today's Options PFFS Commercial [id number] Self [id number] Medicare (Part B) Medicare Primary [id number] Self [id number] Medicaid Spenddown Medigap Part B [id number] Self [id number] Medicaid Medigap Part B [id number] Self [id number] [facility] Healthcare Options [facility] Part B [id number] Self [id number] Aetna Medicare Commercial [id number] Self [id number] SELF PAY AETNA MEDICARE ADV [id number] SP M [id number] SELF PAY AETNA MEDICARE ADV [id number] SP M [id number] SELF PAY AETNA MEDICARE ADV [id number] SP M [id number] SELF PAY AETNA MEDICARE ADV [id number] SP M [id number] Today's Options PFFS Commercial [id number] Self [id number] Medicare (Part B) Medicare Primary [id number] Self [id number] Medicaid Spenddown Medigap Part B [id number] Self [id number] Medicaid Medigap Part B [id number] Self [id number] [facility] Medigap Part B [id number] Self [id number] Aetna Medicare Commercial [id number] Self [id number] SELF PAY AETNA MEDICARE ADV [id number] SP M [id number] SELF PAY AETNA MEDICARE ADV [id number] SP M [id number] SELF PAY AETNA MEDICARE ADV [id number] SP M [id number] SELF PAY AETNA MEDICARE ADV [id number] SP M [id number] ANSI-Medicare Part B [id number] ANSI-Medicare Part B [id number] ANSI-Medicare Part B [id number] ANSI-Medicare Part B [id number] AETNA MEDICARE ADV [id number] SP M [id number] AETNA MEDICARE COMPLETE G [id number] Self [id number] OTHER B TRANSPLANT Self TRANSPLAN T ANSI-Medicare Part B [id number] ANSI-Medicare Part B [id number] MEDICARE [id number] SP [id number] ANSI-Medicare Part B [id number] ANSI-Medicare Part B [id number] Today's Options PFFS Commercial [id number] Self [id number] Medicare (Part B) Medicare Primary [id number] Self [id number] Medicaid Spenddown Medigap Part B [id number] Self [id number] Medicaid Medigap Part B [id number] Self [id number] [facility] Healthcare Options Medigap Part B [id number] Self [id number] Aetna Medicare Commercial [id number] Self [id number] AETNA MEDICARE [id number] SP [id number] Today's Options PFFS Commercial [id number] Self [id number] Medicare (Part B) Medicare Primary [id number] Self [id number] Medicaid Spenddown Medigap Part B [id number] Self [id number] Medicaid Medigap Part B [id number] Self [id number] [facility] Medigap Part B [id number] Self [id number] Aetna Medicare Commercial [id number] Self [id number] AETNA MEDICARE ADV [id number] SP M [id number] AETNA LIFE CASUALTY [id number] SP [id number] Today's Options PFFS Commercial [id number] Self [id number] Medicare (Part B) Medicare Primary [id number] Self [id number] Medicaid Spenddown Medigap Part B [id number] Self [id number] Medicaid Medigap Part B [id number] Self [id number] [facility] Medigap Part B [id number] Self [id number] Aetna Medicare Commercial [id number] Self [id number] UNITED HEALTHCARE MGD MEDICARE [id number] SP [id number] MEDICARE [id number] SP [id number] A MEDICARE COMPLETE [id number] SP [id number] [facility] Commercial [id number] Self [id number] Aarp Medigap Part B [id number] 12 Self [id number] Medicare [facility] [place] Medicare Primary [id number] Self [id number] [facility] Medicare Commercial [id number] Self [id number] Aarp Medigap Part B [id number] Self [id number] Medicare [facility] [place]) Medicare Primary [id number] Self [id number] MEDICARE COMPLETE [id number] SP [id number] Today's Options PFFS Commercial [id number] Self [id number] Medicare (Part B) Medicare Primary [id number] Self [id number] Medicaid Spenddown Medigap Part B [id number] Self [id number] Medicaid Medigap Part B [id number] Self [id number] [facility] Medigap Part B [id number] Self [id number] U/HC Medicare Solutions Commercial [id number] Self [id number] MEDICARE COMPLETE [id number] SP [id number] Today's Options PFFS Commercial [id number] Self [id number] Medicare (Part B) Medicare Primary [id number] Self [id number] Medicaid Spenddown Medigap Part B [id number] Self [id number] Medicaid Medigap Part B [id number] Self [id number] [facility] Medigap Part B [id number] Self [id number] Today's Options PFFS Commercial [id number] Self [id number] Medicare (Part B) Medicare Primary [id number] Self [id number] Medicaid Spenddown Medigap Part B [id number] Self [id number] Medicaid Medigap Part B [id number] Self [id number] [facility] Medigap Part B [id number] Self [id number] UNITED HEALTHCARE MGD MEDICARE [id number] SP [id number] Medicare (Part B) Medicare Primary Self Today's Options PFFS Commercial Self Medicaid Spenddown Medigap Part B Self Medicaid Medigap Part B 1 1 Self 1 1 [facility] Medigap Part B Self U/HC Medicare Solutions Commercial Self Unitedhealthcare Medicare Commercial Self Aarp Medigap Part B Self Medicare [facility] [place] Medicare Primary Self MEDICARE COMPLETE-[facility] O [id number] S [id number] MEDICARE COMPLETE [id number] SP [id number] UNITED HEALTHCARE MGD MEDICARE [id number] SP [id number] Medicare Medicare Primary Self Medicaid Medigap Part B Self [employer]YS OPTIONS [id number] SP [id number] UNITED HEALTHCARE MGD MEDICARE [id number] SP [id number] [employer] OPTIONS [id number] SP [id number] MEDICARE [id number] SP [id number] B AARP HEALTHCARE OPTIONS [id number] SP [id number] MEDICARE [id number] SP [id number] B [id number] B Problems, Conditions, and Diagnoses Code Display Name Description Problem Type Effective Dates Data Source(s) Z95.2 Presence of prosthetic heart valve Z95.2 - Presence of prosthetic heart valve Diagnosis 12/02/2020 08:34:00 AM EST [facility] E11.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 E11.39 - Type 2 diabetes mellitus with other diabetic ophthalmic complication Diagnosis 08/30/2020 07:25:00 AM EDT [email or web address] M25.552 Pain in left hip M25.552 - Pain in left hip Diagnosis 08/11/2020 01:29:00 PM EDT [facility] Z85.3 Personal history of malignant neoplasm o f breast Z85.3 - Personal history of malignant neoplasm of breast Diagnosis 05/10/2020 02:06:00 PM EDT [employer] E78.2 Mixed hyperlipidemia E78.2 - Mixed hyperlipidemia Diag nosis 02/10/2020 08:29:00 AM EDT [email or web address] Surgeries/Procedures Procedure Description Date Indications Data Source(s) Anticoagulant MGMT For Patient Taking Warfarin, Inc Review & Intr 12/03/2020 12:00:00 AM EST MEDENT ([facility]) Anticoagulant MGMT For Patient Taking Warfarin, Inc Review & Intr 11/18/2020 12:00:00 AM EST [facility] ([facility]) Anticoagulant MGMT For Patient Taking Warfarin, Inc Review & Intr 11/09/2020 12:00:00 AM EST [facility] ([facility]) Anticoagulant MGMT For Patient Taking Warfarin, Inc Review & Intr 10/13/2020 12:00:00 AM EST [facility] ([facility]) Anticoagulant MGMT For Patient Taking Warfarin, Inc Review & Intr 09/14/2020 12:00:00 AM EDT MED[facility] ([facility]) Anticoagulant MGMT For Patient Taking Warfarin, Inc Review & Intr 09/07/2020 12:00:00 AM EDT MEDENT ([facility]) Injection, vitamin b-12 cyanocobalamin, up to 1000 mcg 09/06/2020 12:00:00 AM EDT eCW1 ([facility]) Immunization: Flublok Quadrivalent (18 years & older) 0.5mL IM (Influenza) 09/06/2020 12:00:00 AM EDT eCW1 ([facility]) Anticoagulant MGMT For Patient Taking Warfarin, Inc Review & Intr 09/02/2020 12:00:00 AM EDT [facility] ([facility]) Anticoagulant MGMT For Patient Taking Warfarin, Inc Review & Intr 08/18/2020 12:00:00 AM EDT [facility] ([facility]) Anticoagulant MGMT For Patient Taking Warfarin, Inc Review & Intr 08/12/2020 12:00:00 AM EDT [facility] ([facility]) Anticoagulant MGMT For Patient Taking Warfarin, Inc Review & Intr 07/23/2020 12:00:00 AM EDT [facility] ([facility]) Anticoagulant MGMT For Patient Taking Warfarin, Inc Review & Intr 07/08/2020 12:00:00 AM EDT [facility] ([facility]) ECG ROUTINE ECG W/LEAST 12 LDS W/I&R 06/10/2020 12:00: 00 AM EDT [facility] ([facility]) Anticoagulant MGMT For Patient Taking Warfarin, Inc Review & Intr 06/04/2020 12:00:00 AM EDT [facility] ([facility]) Anticoagulant MGMT For Patient Taking Warfarin, Inc Review & Intr 05/06/2020 12:00:00 AM EDT [facility] ([facility]) Anticoagulant MGMT For Patient Taking Warfarin, Inc Review & Intr 04/07/2020 12:00:00 AM EDT [facility] ([facility] Anticoagulant MGMT For Patient Taking Warfarin, Inc Review & Intr 03/09/2020 12:00:00 AM EDT MED[facility] ([facility]) PHYSICIAN TELEPHONE EVALUATION 21-30 MIN 03/04/2020 12 :00:00 AM EDT eCW1 ([facility]) Anticoagulant MGMT For Patient Taking Warfarin, Inc Review & Intr 02/10/2020 12:00:00 AM EDT [facility] ([facility]) Anticoagulant MGMT For Patient Taking Warfarin, Inc Review & Intr 01/13/2020 12:00:00 AM EST [facility] ([facility]) Anticoagulant MGMT For Patient Taking Warfarin, Inc Review & Intr 12/15/2019 12:00:00 AM EST [facility] ([facility]) Anticoagulant MGMT For Patient Taking Warfarin, Inc Review & Intr 12/02/2019 12:00:00 AM EST [facility] ([facility]) Results ID Date Data Source [id number] 01/04/2021 01:23:00 PM [facility] Name Value Range Interpretation Code Description Data Fiordaliza rce(s) Supporting Document(s) WHITE BLOOD COUNT 7.92 10^3/uL 4.00-10.50 N [facility] RED BLOOD COUNT 2.33 10^6/uL 3.90-5.20 [facility] H[facility] 7.1 G/DL 11.5-15.6 [facility] HEMATOCRIT 22.9 % 35.0-46.0 [facility] MCV 98.3 FL 80.0-100.0 [facility] MCH 30.5 PG 27.0-34.0 [facility] MCHC 31.0 G/DL 32-36 [facility] RDW 16.8 % 11.5-14.5 [facility] PLATELET COUNT 236 10^3/uL 130-400 [facility] MPV 11.3 FL 8.7-13.2 N [facility] GRAN % (AUTO) 74.4 % 42.0-75.0 [facility] LYMPH % (AUTO) 11.5 % 20.0-51.0 L [facility] MONO % (AUTO) 8.3 % 2.0-15.0 [facility] EOS % (AUTO) 4.4 % 0.0-11.0 [facility] BASO % (AUTO) 0.9 % 0.0-2.0 [facility] IG % (AUTO) 0.5 % 1.00-5.00 [facility] IG # (AUTO) 0.0 10^3/uL <0.5 [facility] GRAN # (AUTO) 5.89 10^3/uL 1.50-6.50 N [facility] LYMPH # (AUTO) 0.9 k/uL 1.0-5.0 L [facility] MONO # (AUTO) 0.66 k/uL 0.20-1.50 [facility] EOS # (AUTO) 0.35 10^3/uL 0.00-1.10 N [facility] BASO # (AUTO) 0.07 10^3/uL 0.00-0.20 [facility] ID Date Data Source [id number] 01/04/2021 02:20:00 PM [facility] Name Value Range Interpretation Code Description Data Fiordaliza rce(s) Supporting Document(s) SODIUM 140 MEQ/L 135-145 [facility] POT[facility] 4.0 MEQ/L 3.5-5.3 [facility] CHLORIDE 103 MEQ/L 94-110 [facility] CARBON DIOXIDE 27 MEQ/L 22-33 [facility] 14 5[facility] BLOOD UREA NITRO 83 MG/DL 7-25 [facility] CREATININE 2.4 MG/DL 0.6-1.4 [facility] GFR 19.7 ML/MIN [facility] Stage G4 - Severely decreased kidney fu nction The GFR is an estimate of the Glomerular Filtration Rate. It is an aid to assess a patient's renal function. It is not a conclusive diagnosis of kidney disease. GFR normal is >=90 The MDRD GFR calculation is considered valid between the ages of 18 and 75 years only. BUN/CREAT RATIO 34 8-36 [facility] GLUCOSE 205 MG/DL 70-100 [facility] CA 8.6 MG/DL 8.7-10.5 L [facility] ID Date Data Source [id number] 01/04/2021 02:20:00 PM [facility] Name Value Range Interpretation Code Description Data Fiordaliza rce(s) Supporting Document(s) MAGNESIUM 1.5 mg/dl 1.8-2.4 L [facility] ID Date Data Source [id number] 01/04/2021 01:30:00 PM [facility] Name Value Range Interpretation Code Description Data Fiordaliza rce(s) Supporting Document(s) PROTHROMBIN TIME 29.4 SEC 8.9-13.3 [facility] INR 2.6 0.0-3.6 N [facility] Therapeutic Values of INR are generally between 2.0-3.0 except for Prosthetic Valves (High Risk 2.5-3.5) The use of INR is restricted to patient on stable oral anticoagulant therapy. ID Date Data Source [id number] 12/03/2020 08:11:00 AM EST [facility] Name Value Range Interpretation Code Description Data Fiordaliza rce(s) Supporting Document(s) White Blood Count 6.7 4.3-10.9 [facility] ([facility]) Red Blood Count 3.09 4.70-6.20 [facility] ([facility]) Platelets 227 130-400 [facility] ([facility]) Hemoglobin 9.0 13.0-17.0 [facility] ([facility]) Hematocrit 28.7 39.0-50.0 [facility] ([facility]) ID Date Data Source [id number] 12/03/2020 08:11:00 AM EST [facility] ([facility]) Name Value Range Interpretation Code Description Data Fiordaliza rce(s) Supporting Document(s) Glucose 262 70-100 [facility] Blood Urea Nitrogen 45.3 5-21 [facility] ([facility]) Creatinine 2.4 0.6-1.5 [facility] ([facility]) Glomerular filtration rate/1.73 sq M.pre dicted [Volume Rate/Area] in Serum or Plasma by Creatinine-based formula (MDRD) 20 [facility] ([facility]) Sodium 139.4 136-146 [facility] ([facility]) Potassium 4.07 3.5-5.3 [facility] ([facility] Carbon Dioxide 30.7 20-32 [facility] ([facility]) Chloride 95.9 98-110 [facility] ([facility] Phosphorus 3.4 [facility] ([facility]) Calcium 8.7 8.4-10.4 [facility] ([facility] Albumin 3.6 3.5-4.7 [facility] ([facility] ID Date Data Source [id number] 12/02/2020 08:49:00 AM EST [facility] ([facility]) Name Value Range Interpretation Code Description Data Fiordaliza rce(s) Supporting Document(s) INR in Platelet poor plasma by Coagulation assay 3.2 0.0-3.6 [facility] ([facility]) Therapeutic Values of INR are generally between 2.0-3.0 except for Prosthetic Valves (High Risk 2.5-3.5) The use of INR is restricted to patient on stable oral anticoagulant therapy. Prothrombin time (PT) 36.0 SEC 8.9-13.3 [facility] ([facility]) ID Date Data Source [id number] 12/02/2020 01:32:00 PM [facility] Name Value Range Interpretation Code Description Data Fiordaliza rce(s) Supporting Document(s) PROTHROMBIN TIME 36.0 SEC 8.9-13.3 [facility] INR 3.2 0.0-3.6 [facility] Therapeutic Values of INR are generally between 2.0-3.0 except for Prosthetic Valves (High Risk 2.5-3.5) The use of INR is restricted to patient on stable oral anticoagulant therapy. ID Date Data Source [id number] 11/17/2020 07:57:00 AM EST [facility] ([facility]) Name Value Range Interpretation Code Description Data Fiordaliza rce(s) Supporting Document(s) INR in Platelet poor plasma by Coagulation assay 3.5 0.0-3.6 [facility] ([facility]) Therapeutic Values of INR are generally between 2.0-3.0 except for Prosthetic Valves (High Risk 2.5-3.5) The use of INR is restricted to patient on stable oral anticoagulant therapy. Prothrombin time (PT) 39.0 SEC 8.9-13.3 [facility] ([facility]) ID Date Data Source [id number] 11/17/2020 02:22:00 PM [facility] Name Value Range Interpretation Code Description Data Fiordaliza rce(s) Supporting Document(s) PROTHROMBIN TIME 39.0 SEC 8.9-13.3 [facility] INR 3.5 0.0-3.6 N [facility] Therapeutic Values of INR are generally between 2.0-3.0 except for Prosthetic Valves (High Risk 2.5-3.5) The use of INR is restricted to patient on stable oral anticoagulant therapy. ID Date Data Source [id number] 11/08/2020 07:48:00 AM EST [facility] ([facility]) Name Value Range Interpretation Code Description Data Fiordaliza rce(s) Supporting Document(s) Prothrombin time (PT) 19.3 SEC 8.9-13.3 [facility] ([facility]) INR in Platelet poor plasma by Coagulation assay 1.7 0.0-3.6 [facility] ([facility]) Therapeutic Values of INR are generally between 2.0-3.0 except for Prosthetic Valves (High Risk 2.5-3.5) The use of INR is restricted to patient on stable oral anticoagulant therapy. ID Date Data Source [id number] 11/08/2020 01:37:00 PM [employer] Name Value Range Interpretation Code Description Data Fiordaliza rce(s) Supporting Document(s) PROTHROMBIN TIME 19.3 SEC 8.9-13.3 [facility] INR 1.7 0.0-3.6 N [facility] Therapeutic Values of INR are generally between 2.0-3.0 except for Prosthetic Valves (High Risk 2.5-3.5) The use of INR is restricted to patient on stable oral anticoagulant therapy. ID Date Data Source [id number] 2020 07:42:00 AM EST [facility] ([facility]) Name Value Range Interpretation Code Description Data Fiordaliza rce(s) Supporting Document(s) Prothrombin time (PT) 27.3 SEC 8.9-13.3 [facility] ([facility]) INR in Platelet poor plasma by Coagulation assay 2.4 0.0-3.6 [facility] ([facility]) Therapeutic Values of INR are generally between 2.0-3.0 except for Prosthetic Valves (High Risk 2.5-3.5) The use of INR is restricted to patient on stable oral anticoagulant therapy. ID Date Data Source [id number] 2020 01:45:00 PM [employer] Name Value Range Interpretation Code Description Data Fiordaliza rce(s) Supporting Document(s) PROTHROMBIN TIME 27.3 SEC 8.9-13.3 [facility] INR 2.4 0.0-3.6 N [facility] Therapeutic Values of INR are generally between 2.0-3.0 except for Prosthetic Valves (High Risk 2.5-3.5) The use of INR is restricted to patient on stable oral anticoagulant therapy. ID Date Data Source [id number] 09/14/2020 08:01:00 AM EDT [facility] ([facility]) Name Value Range Interpretation Code Description Data Fiordaliza rce(s) Supporting Document(s) INR in Platelet poor plasma by Coagulation assay 2.3 0.0-3.6 [facility] ([facility]) Therapeutic Values of INR are generally between 2.0-3.0 except for Prosthetic Valves (High Risk 2.5-3.5) The use of INR is restricted to patient on stable oral anticoagulant therapy. Prothrombin time (PT) 25.9 SEC 8.9-13.3 [facility] ([facility]) ID Date Data Source [id number] 09/14/2020 01:39:00 PM EDT [facility] Name Value Range Interpretation Code Description Data Fiordaliza rce(s) Supporting Document(s) PROTHROMBIN TIME 25.9 SEC 8.9-13.3 H [facility] INR 2.3 0.0-3.6 N [facility] Therapeutic Values of INR are generally between 2.0-3.0 except for Prosthetic Valves (High Risk 2.5-3.5) The use of INR is restricted to patient on stable oral anticoagulant therapy. ID Date Data Source [id number] 09/06/2020 10:35:00 AM EDT [facility] ([facility]) Name Value Range Interpretation Code Description Data Fiordaliza rce(s) Supporting Document(s) Prothrombin Time 23.1 s 12.5-14.3 [facility] ([facility]) Inr 2.00 [facility] ([facility]iology [facility]) THERAPUTIC HUMAN INR VALUES INDICATIONS NORMAL RANGES PROPHYLAXIS/TREATMENT OF: VENOUS THROMBOSIS 2.0-3.0 PULMONARY EMBOLISM 2.0-3.0 PREVENTION OF SYSTEMIC EMBOLISM FROM: TISSUE HEART VALVES 2.0-3.0 ACUTE MYOCARDIAL INFARCTION 2.0-3.0 VALVULAR HEART DISEASE 2.0-3.0 ATRIAL FIBRILLATION 2.0-3.0 MECHANICAL VALVES(HIGH RISK) 2.5-3.5 RECURRENT MYOCARDIAL INFARCTION 2.5-3.5 ID Date Data Source [id number] 09/01/2020 08:10:00 AM EDT [facility] ([facility]) Name Value Range Interpretation Code Description Data Fiordaliza rce(s) Supporting Document(s) Prothrombin time (PT) 56.1 SEC 8.9-13.3 [facility] ([facility]) INR in Platelet poor plasma by Coagulation assay 5.0 0.0-3.6 Above upper panic limits [facility] ([facility]) Critical Results called to Britany Couch by [id number] at 1351 on 09/01/20 Therapeutic Values of INR are generally between 2.0-3.0 except for Prosthetic Valves (High Risk 2.5-3.5) The use of INR is restricted to patient on stable oral anticoagulant therapy. ID Date Data Source [id number] 09/01/2020 01:55:00 PM EDT [facility] Name Value Range Interpretation Code Description Data Fiordaliza rce(s) Supporting Document(s) PROTHROMBIN TIME 56.1 SEC 8.9-13.3 [facility] INR 5.0 0.0-3.6 [facility] Critical Results called to Britany C by [id number] at 1351 on 09/01/20 Therapeutic Values of INR are generally between 2.0-3.0 except for Prosthetic Valves (High Risk 2.5-3.5) The use of INR is restricted to patient on stable oral anticoagulant therapy. ID Date Data Source [id number] 08/30/2020 02:25:00 PM EDT [facility] Name Value Range Interpretation Code Description Data Fiordaliza rce(s) Supporting Document(s) SODIUM 137 MEQ/L 135-145 [facility] POTASSIUM 4.3 MEQ/L 3.5-5.3 N [facility] CHLORIDE 103 MEQ/L 94-110 [facility] CARBON DIOXIDE 28 MEQ/L 22-33 [facility] ANION GAP 10 5-16 [facility] BLOOD UREA NITRO 62 MG/DL 7-25 [facility] CREATININE 2.3 MG/DL 0.6-1.4 [facility] GFR 20.7 ML/MIN [facility] Stage G4 - Severely decreased kidney fu nction The GFR is an estimate of the Glomerular Filtration Rate. It is an aid to assess a patient's renal function. It is not a conclusive diagnosis of kidney disease. GFR normal is >=90 The MDRD GFR calculation is considered valid between the ages of 18 and 75 years only. BUN/CREAT RATIO 26 8-36 [facility] GLUCOSE 156 MG/DL 70-100 [facility] CA 9.1 MG/DL 8.7-10.5 [facility] BILIRUBIN,TOTAL 0.4 MG/DL 0.1-1.3 N [facility] AST 27 U/L 5-40 N [facility] ALT 23 U/L 5-48 N [facility] ALKALINE PHOSPHATASE 104 U/L 40-140 [facility] TOTAL PROTEIN 6.5 G/DL 5.9-8.3 N [facility] ALBUMIN 4.0 G/DL 3.0-5.1 N [facility] GLOBULIN 2.5 G/DL 1.5-3.5 N [facility] ALB/GLOB RATIO 1.6 G/DL 1.0-3.0 N [facility] ID Date Data Source [id number] 08[facility]30[facility] Value Range Interpretation Code Description Data Fiordaliza rce(s) Supporting Document(s) GLYCOSYLATED HGBA1C 7.1 % 4.1-6.5 H [facility] ID Date Data Source [id number] 08/30/2020 02:25:00 PM T [facility] Name Value Range Interpretation Code Description Data Fiordaliza rce(s) Supporting Document(s) TRIGLYCERIDES 116 MG/DL 45-150 N [facility] CHOLESTEROL 165 MG/DL 125-200 [facility] LDL CHOLESTEROL 80 MG/DL 50-130 N [facility] HDL CHOLESTEROL 62 MG/DL 32-96 [facility] CHOL/HDL RATIO 2.7 0-4.3 [facility] ID Date Data Source [id number] 08/30/2020 02:25:00 PM [facility] Value Range Interpretation Code Description Data Fiordaliza rce(s) Supporting Document(s) VITAMIN B12 1240 PG/ML 211-2000 N [facility] ID Date Data Source [id number] 08/30/2020 02:25:00 PM [facility] Value Range Interpretation Code Description Data Fiordaliza rce(s) Supporting Document(s) Vitamin D,25-HYDROXY 31.1 ng/ml 30-100 N [facility] Vitamin D Status Range De ficiency <20 ng/ml Insufficiency 20-29.9 ng/ml Sufficiency 30-100 ng/ml Toxicity >100 ng/ml Patients should not be tested for 72 hours post fluorescein dye angiography. A false elevation of result may occur. ID Date Data Source [id number] 08/17/2020 08:32:00 AM EDT [facility] Name Value Range Interpretation Code Description Data Fiordaliza rce(s) Supporting Document(s) Prothrombin time (PT) 39.9 SEC 8.9-13.3 [facility] ([facility]) INR in Platelet poor plasma by Coagulation assay 3.5 0.0-3.6 [facility] ([facility]) Therapeutic Values of INR are generally between 2.0-3.0 except for Prosthetic Valves (High Risk 2.5-3.5) The use of INR is restricted to patient on stable oral anticoagulant therapy. ID Date Data Source [id number] 08/17/2020 10:04:00 AM T [facility] Name Value Range Interpretation Code Description Data Fiordaliza rce(s) Supporting Document(s) PROTHROMBIN TIME 39.9 SEC 8.9-13.3 H [facility] INR 3.5 0.0-3.6 N [facility] Therapeutic Values of INR are generally between 2.0-3.0 except for Prosthetic Valves (High Risk 2.5-3.5) The use of INR is restricted to patient on stable oral anticoagulant therapy. ID Date Data Source [id number] 08/11/2020 02:21:00 [place] [address] Patient Name: Denisse Greene Exam Date: 08/11/20 [...] and pubic symphysis. Professional interpretation performed at [facility] . End of diagnostic report: [id number] Signed: Eliseo Mancini MD 08/12/20 1027 Interpreted by: Valentina Mancini ronTranscribed by: Eliseo Mancini Name Value Range Interpretation Code Description Data Fiordaliza rce(s) Supporting Document(s) ID Date Data Source [id number] 08/12/2020 08:05:00 AM EDT [facility] Name Value Range Interpretation Code Description Data Fiordaliza rce(s) Supporting Document(s) PROTHROMBIN TIME 66.0 SEC 8.9-13.3 [facility] INR 5.8 0.0-3.6 [facility] Critical Results given to ED per [...] oral anticoagulant therapy. ID Date Data Source [id number] 08/11/2020 01:28:00 PM EDT [facility] ([facility]i [facility]) Name Value Range Interpretation Code Description Data Fiordaliza rce(s) Supporting Document(s) Prothrombin time (PT) 66.0 SEC 8.9-13.3 [facility] ([facility]) INR in Platelet poor plasma by Coagulation assay 5.8 0.0-3.6 Above upper panic limits [facility] ([facility]) Critical Results given to ED per [...] oral anticoagulant therapy. ID Date Data Source [id number] 07/20/2020 01:41:00 PM EDT [facility] Name Value Range Interpretation Code Description Data Fiordaliza rce(s) Supporting Document(s) PROTHROMBIN TIME 24.5 SEC 8.9-13.3 [facility] INR 2.2 0.0-3.6 [facility] Therapeutic Values of INR are generally between 2.0-3.0 except for Prosthetic Valves (High Risk 2.5-3.5) The use of INR is restricted to patient on stable oral anticoagulant therapy. ID Date Data Source [id number] 07/20/2020 07:48:00 AM EDT [facility] ([facility]) Name Value Range Interpretation Code Description Data Fiordaliza rce(s) Supporting Document(s) Prothrombin time (PT) 24.5 SEC 8.9-13.3 [facility] ([facility]) INR in Platelet poor plasma by Coagulation assay 2.2 0.0-3.6 [facility] ([facility]) Therapeutic Values of INR are generally between 2.0-3.0 except for Prosthetic Valves (High Risk 2.5-3.5) The use of INR is restricted to patient on stable oral anticoagulant therapy. ID Date Data Source [id number] 07/05/2020 01:58:00 PM EDT [facility] Name Value Range Interpretation Code Description Data Fiordaliza rce(s) Supporting Document(s) PROTHROMBIN TIME 21.5 SEC 8.9-13.3 [facility] INR 1.9 0.0-3.6 [facility] Therapeutic Values of INR are generally between 2.0-3.0 except for Prosthetic Valves (High Risk 2.5-3.5) The use of INR is restricted to patient on stable oral anticoagulant therapy. ID Date Data Source [id number] 07/05/2020 07:29:00 AM EDT [facility] ([facility]) Name Value Range Interpretation Code Description Data Fiordaliza rce(s) Supporting Document(s) INR in Platelet poor plasma by Coagulation assay 1.9 0.0-3.6 [facility] ([facility]) Therapeutic Values of INR are generally between 2.0-3.0 except for Prosthetic Valves (High Risk 2.5-3.5) The use of INR is restricted to patient on stable oral anticoagulant therapy. Prothrombin time (PT) 21.5 SEC 8.9-13.3 [facility] ([facility]) ID Date Data Source [id number] 06/03/2020 07:24:00 AM EDT [facility] ([facility]) Name Value Range Interpretation Code Description Data Fiordaliza rce(s) Supporting Document(s) Prothrombin time (PT) 34.4 SEC 8.9-13.3 [facility] ([facility]) INR in Platelet poor plasma by Coagulation assay 3.0 0.0-3.6 [facility] ([facility]) Therapeutic Values of INR are generally between 2.0-3.0 except for Prosthetic Valves (High Risk 2.5-3.5) The use of INR is restricted to patient on stable oral anticoagulant therapy. ID Date Data Source [id number] 06/03/2020 01:55:00 PM T [facility] Name Value Range Interpretation Code Description Data Fiordaliza rce(s) Supporting Document(s) PROTHROMBIN TIME 34.4 SEC 8.9-13.3 [facility] INR 3.0 0.0-3.6 N [facility] Therapeutic Values of INR are generally between 2.0-3.0 except for Prosthetic Valves (High Risk 2.5-3.5) The use of INR is restricted to patient on stable oral anticoagulant therapy. ID Date Data Source [id number] 05/26/2020 03:22:00 PM EDT [facility] ([facility]) Name Value Range Interpretation Code Description Data Fiordaliza rce(s) Supporting Document(s) Albumin [Mass/volume] in Serum or Plasma 3.9 [facility] ([facility]) Chloride [Moles/volume] in Serum or Plasma 103.2 98-110 [facility] ([facility]) Carbon dioxide, total [Moles/volume] in Serum or Plasma 21.5 20 -32 [facility] ([facility]) Urea nitrogen [Mass/volume] in Serum or Plasma 80.7 5-21 [facility] ([facility]) Calcium 8.89 8.4-10.4 [facility] (Cardiology [facility]) Phosphate [Moles/volume] in Serum or Plasma 4.43 [facility] ([facility]) ID Date Data Source [id number] 05/26/2020 03:22:00 PM EDT [facility] ([facility]) Name Value Range Interpretation Code Description Data Fiordaliza rce(s) Supporting Document(s) Hemoglobin 10.5 [facility] ([facility]) White Blood Count 5.9 4.0-10.9 [facility] Platelets 235 150-450 [facility] Red Blood Count 3.43 4.70-6.20 [facility] Hematocrit 32.1 [facility] ([facility]) ID Date Data Source [id number] 05/26/2020 09:42:00 AM EDT [facility] ([facility]) Name Value Range Interpretation Code Description Data Fiordaliza rce(s) Supporting Document(s) White Blood Count 5.9 4.3-10.9 [facility] ([facility]) Hemoglobin 10.5 13.0-17.0 [facility] ([facility]) Red Blood Count 3.43 4.70-6.20 [facility] ([facility]) Platelets 235 130-400 [facility] ([facility] Hematocrit 32.1 39.0-50.0 [facility] ([facility]) ID Date Data Source [id number] 05/26/2020 09:42:00 AM EDT [facility] ([facility]) Name Value Range Interpretation Code Description Data Fiordaliza rce(s) Supporting Document(s) Glucose 157 70-100 [facility] Blood Urea Nitrogen 80.7 5-21 [facility] ([facility]) Creatinine 2.35 0.6-1.5 [facility] ([facility] [place]) ID Date Data Source [id number] 05/10/2020 05:28:00 PM EDT [facility] Name Value Range Interpretation Code Description Data Fiordaliza rce(s) Supporting Document(s) WHITE BLOOD COUNT 7.08 10^3/uL 4.00-10.50 [facility] RED BLOOD COUNT 3.27 10^6/uL 3.90-5.20 [facility] HEMOGLOBIN 10.0 G/DL 11.5-15.6 [facility] HEMATOCRIT 31.3 % 35.0-46.0 [facility] MCV 95.7 FL 80.0-100.0 [facility] MCH 30.6 PG 27.0-34.0 [facility] MCHC 31.9 G/DL 32-36 [facility] RDW 15.7 % 11.5-14.5 [facility] PLATELET COUNT 221 10^3/uL 130-400 [facility] MPV 11.6 FL 8.7-13.2 N [facility] GRAN % (AUTO) 66.2 % 42.0-75.0 [facility] LYMPH % (AUTO) 17.4 % 20.0-51.0 L [facility] MONO % (AUTO) 11.6 % 2.0-15.0 [facility] EOS % (AUTO) 3.8 % 0.0-11.0 [facility] BASO % (AUTO) 0.7 % 0.0-2.0 N [facility] IG % (AUTO) 0.3 % 1.00-5.00 [facility] IG # (AUTO) 0.0 10^3/uL <0.5 [facility] GRAN # (AUTO) 4.69 10^3/uL 1.50-6.50 N [facility] LYMPH # (AUTO) 1.2 k/uL 1.0-5.0 N [facility] MONO # (AUTO) 0.82 k/uL 0.20-1.50 N [facility] EOS # (AUTO) 0.27 10^3/uL 0.00-1.10 [facility] BASO # (AUTO) 0.05 10^3/uL 0.00-0.20 [facility] ID Date Data Source [id number] 05/10/2020 05:38:00 PM EDT [facility] Name Value Range Interpretation Code Description Data Fiordaliza rce(s) Supporting Document(s) SODIUM 138 MEQ/L 135-145 [facility] POTASSIUM 5.3 MEQ/L 3.5-5.3 [facility] CHLORIDE 107 MEQ/L 94-110 [facility] CARBON DIOXIDE 18 MEQ/L 22-33 [facility] ANION GAP 18 5-16 [facility] BLOOD UREA NITRO 82 MG/DL 7-25 [facility] CREATININE 2.4 MG/DL 0.6-1.4 [facility] GFR 19.7 ML/MIN [facility] Stage G4 - Severely decreased kidney fu nction The GFR is an estimate of the Glomerular Filtration Rate. It is an aid to assess a patient's renal function. It is not a conclusive diagnosis of kidney disease. GFR normal is >=90 The MDRD GFR calculation is considered valid between the ages of 18 and 75 years only. BUN/CREAT RATIO 34 8-36 N [facility] GLUCOSE 90 MG/DL 70-100 [facility] CA 9.2 MG/DL 8.7-10.5 [facility] BILIRUBIN,TOTAL 0.4 MG/DL 0.1-1.3 [facility] AST 23 U/L 5-40 [facility] ALT 16 U/L 5-48 [facility] ALKALINE PHOSPHATASE 95 U/L 40-140 [facility] alth TOTAL PROTEIN 6.5 G/DL 5.9-8.3 N [facility] ALBUMIN 3.9 G/DL 3.0-5.1 [facility] GLOBULIN 2.6 G/DL 1.5-3.5 [facility] ALB/GLOB RATIO 1.5 G/DL 1.0-3.0 N [facility] ID Date Data Source [id number] 05/05/2020 07:03:00 AM EDT [facility] Name Value Range Interpretation Code Description Data Fiordaliza rce(s) Supporting Document(s) Prothrombin time (PT) 34.4 SEC 8.9-13.3 [facility] ([facility]iology [facility]) INR in Platelet poor plasma by Coagulation assay 3.0 0.0-3.6 [facility]) Therapeutic Values of INR are generally between 2.0-3.0 except for Prosthetic Valves (High Risk 2.5-3.5) The use of INR is restricted to patient on stable oral anticoagulant therapy. ID Date Data Source [id number] 05/05/2020 01:44:00 PM [facility] Name Value Range Interpretation Code Description Data Fiordaliza rce(s) Supporting Document(s) PROTHROMBIN TIME 34.4 SEC 8.9-13.3 [facility] INR 3.0 0.0-3.6 N [facility] Therapeutic Values of INR are generally between 2.0-3.0 except for Prosthetic Valves (High Risk 2.5-3.5) The use of INR is restricted to patient on stable oral anticoagulant therapy. ID Date Data Source [id number] 04/06/2020 01:36:00 PM [facility] [email or web address] Name Value Range Interpretation Code Description Data Fiordaliza rce(s) Supporting Document(s) PROTHROMBIN TIME 28.9 SEC 8.9-13.3 [facility] INR 2.6 0.0-3.6 [facility] Therapeutic Values of INR are generally between 2.0-3.0 except for Prosthetic Valves (High Risk 2.5-3.5) The use of INR is restricted to patient on stable oral anticoagulant therapy. ID Date Data Source [id number] 04/06/2020 07:07:00 AM EDT [facility] ([facility]) Name Value Range Interpretation Code Description Data Fiordaliza rce(s) Supporting Document(s) INR in Platelet poor plasma by Coagulation assay 2.6 0.0-3.6 [facility] ([facility]) Therapeutic Values of INR are generally between 2.0-3.0 except for Prosthetic Valves (High Risk 2.5-3.5) The use of INR is restricted to patient on stable oral anticoagulant therapy. Prothrombin time (PT) 28.9 SEC 8.9-13.3 [facility] ([facility]) ID Date Data Source [id number] 03/08/2020 09:20:00 AM EDT [facility] ([facility]) Name Value Range Interpretation Code Description Data Fiordaliza rce(s) Supporting Document(s) INR in Platelet poor plasma by Coagulation assay 2.9 0.0-3.6 [facility] ([facility]) Therapeutic Values of INR are generally between 2.0-3.0 except for Prosthetic Valves (High Risk 2.5-3.5) The use of INR is restricted to patient on stable oral anticoagulant therapy. Prothrombin time (PT) 33.2 SEC 8.9-13.3 [facility] ([facility]) ID Date Data Source [id number] 03/08/2020 01:28:00 PM T [facility] Name Value Range Interpretation Code Description Data Fiordaliza rce(s) Supporting Document(s) PROTHROMBIN TIME 33.2 SEC 8.9-13.3 [facility] INR 2.9 0.0-3.6 N [facility] Therapeutic Values of INR are generally between 2.0-3.0 except for Prosthetic Valves (High Risk 2.5-3.5) The use of INR is restricted to patient on stable oral anticoagulant therapy. ID Date Data Source [id number] 02/25/2020 12:38:00 PM EDT [facility] ([facility]) Name Value Range Interpretation Code Description Data Fiordaliza rce(s) Supporting Document(s) White Blood Count 7.8 4.0-10.0 [facility] ([facility]) Red Blood Count 3.47 4.00-5.40 [facility] (Cardio logy [facility]) Platelets 224 172-450 [facility] ([facility]) Hemoglobin 10.7 12.0-16.0 [facility] ([facility]) Hematocrit 33.6 36.0-47.0 [facility] ([facility]) ID Date Data Source [id number] 02/25/2020 12:38:00 PM EDT [facility] ([facility]) Name Value Range Interpretation Code Description Data Fiordaliza rce(s) Supporting Document(s) Glucose 187 70-100 [facility] ([facility]) Blood Urea Nitrogen 87.4 7-25 [facility] (Ca [facility]diology [facility]) Creatinine 2.45 0.6-1.4 [facility] ([facility]) Glomerular filtration rate/1.73 sq M.pre dicted [Volume Rate/Area] in Serum or Plasma by Creatinine-based formula (MDRD) 19 [facility] ([facility]) Sodium 135.2 135-145 [facility] ([facility]) Potassium 4.20 3.5-5.3 [facility] ([facility]) Chloride 103.3 98-110 [facility] ([facility]) Carbon Dioxide 24.4 20-32 [facility] ([facility]iol [facility]) Albumin 4.1 3.5-4.7 [facility] ([facility]) Calcium 9.25 8.4-10.4 [facility] ([facility]) Phosphorus 4.15 [facility] ([facility]) ID Date Data Source [id number] 02/10/2020 01:19:00 PM EDT [facility] Name Value Range Interpretation Code Description Data Fiordaliza rce(s) Supporting Document(s) WHITE BLOOD COUNT 10.64 10^3/uL 4.00-10.50 [facility] RED BLOOD COUNT 3.43 10^6/uL 3.90-5.20 [facility] HEMOGLOBIN 10.4 G/DL 11.5-15.6 [facility] HEMATOCRIT 33.7 % 35.0-46.0 [facility] MCV 98.3 FL 80.0-100.0 [facility] MCH 30.3 PG 27.0-34.0 [facility] MCHC 30.9 G/DL 32-36 [facility] RDW 16.1 % 11.5-14.5 [facility] PLATELET COUNT 252 10^3/uL 130-400 [facility] MPV 12.1 FL 8.7-13.2 [facility] GRAN % (AUTO) 76.0 % 42.0-75.0 [facility] LYMPH % (AUTO) 11.8 % 20.0-51.0 [facility] MONO % (AUTO) 8.6 % 2.0-15.0 [facility] EOS % (AUTO) 2.2 % 0.0-11.0 [facility] BASO % (AUTO) 0.8 % 0.0-2.0 N [facility] IG % (AUTO) 0.6 % 1.00-5.00 [facility] IG # (AUTO) 0.1 10^3/uL <0.5 [facility] GRAN # (AUTO) 8.10 10^3/uL 1.50-6.50 [facility] LYMPH # (AUTO) 1.3 k/uL 1.0-5.0 N [facility] MONO # (AUTO) 0.91 k/uL 0.20-1.50 N [facility] EOS # (AUTO) 0.23 10^3/uL 0.00-1.10 N [facility] BASO # (AUTO) 0.08 10^3/uL 0.00-0.20 N [facility] NRBC% 0.2 % 0-2 N [facility] NRBC# 0.02 # [facility] ID Date Data Source [id number] 02/10/2020 01:45:00 PM EDT [facility] Name Value Range Interpretation Code Description Data Fiordaliza rce(s) Supporting Document(s) SODIUM 139 MEQ/L 135-145 N [facility] POTASSIUM 5.4 MEQ/L 3.5-5.3 [facility] CHLORIDE 108 MEQ/L 94-110 N [facility] CARBON DIOXIDE 20 MEQ/L 22-33 [facility] ANION GAP 16 5-16 N [facility] BLOOD UREA NITRO 82 MG/DL 7-25 [facility] CREATININE 2.4 MG/DL 0.6-1.4 [facility] GFR 19.7 ML/MIN [facility] Stage G4 - Severely decreased kidney fu nction The GFR is an estimate of the Glomerular Filtration Rate. It is an aid to assess a patient's renal function. It is not a conclusive diagnosis of kidney disease. GFR normal is >=90 The MDRD GFR calculation is considered valid between the ages of 18 and 75 years only. BUN/CREAT RATIO 34 8-36 [facility] GLUCOSE 171 MG/DL 70-100 [facility] CA 9.6 MG/DL 8.7-10.5 N [facility] BILIRUBIN,TOTAL 0.3 MG/DL 0.1-1.3 [facility] AST 28 U/L 5-40 N [facility] ALT 21 U/L 5-48 N [facility] ALKALINE PHOSPHATASE 116 U/L 40-140 N [facility] alth TOTAL PROTEIN 6.9 G/DL 5.9-8.3 N [facility] ALBUMIN 4.4 G/DL 3.0-5.1 N [facility] GLOBULIN 2.5 G/DL 1.5-3.5 N [facility] ALB/GLOB RATIO 1.8 G/DL 1.0-2.7 N [facility] ID Date Data Source [id number] 02/10/2020 01:45:00 PM EDT [facility] Name Value Range Interpretation Code Description Data Fiordaliza rce(s) Supporting Document(s) GLYCOSYLATED HGBA1C 7.1 % 4.1-6.5 H [facility] ID Date Data Source [id number] 02/10/2020 01:45:00 PM EDT [facility] Name Value Range Interpretation Code Description Data Fiordaliza rce(s) Supporting Document(s) TRIGLYCERIDES 91 MG/DL 45-150 N [facility] CHOLESTEROL 161 MG/DL 125-200 N [facility] LDL CHOLESTEROL 87 MG/DL 50-130 N [facility] HDL CHOLESTEROL 56 MG/DL 32-96 N [facility] CHOL/HDL RATIO 2.9 0-4.3 N [facility] ID Date Data Source [id number] 02/10/2020 01:45:00 PM EDT [facility] Name Value Range Interpretation Code Description Data Fiordaliza rce(s) Supporting Document(s) VITAMIN B12 1554 PG/ML 211-2000 N [facility] ID Date Data Source [id number] 02/10/2020 08:29:00 AM EDT [facility] ([facility]) Name Value Range Interpretation Code Description Data Fiordaliza rce(s) Supporting Document(s) Prothrombin time (PT) 33.7 SEC 8.9-13.3 [facility] ([facility]) INR in Platelet poor plasma by Coagulation assay 3.0 0.0-3.6 [facility] ([facility]) Therapeutic Values of INR are generally between 2.0-3.0 except for Prosthetic Valves (High Risk 2.5-3.5) The use of INR is restricted to patient on stable oral anticoagulant therapy. ID Date Data Source [id number] 02/10/2020 01:21:00 PM EDT [facility] Name Value Range Interpretation Code Description Data Fiordaliza rce(s) Supporting Document(s) PROTHROMBIN TIME 33.7 SEC 8.9-13.3 [facility] INR 3.0 0.0-3.6 N [facility] Therapeutic Values of INR are generally between 2.0-3.0 except for Prosthetic Valves (High Risk 2.5-3.5) The use of INR is restricted to patient on stable oral anticoagulant therapy. ID Date Data Source [id number] 01/12/2020 01:32:00 PM EST [facility] Name Value Range Interpretation Code Description Data Fiordaliza rce(s) Supporting Document(s) PROTHROMBIN TIME 29.8 SEC 8.9-13.3 [facility] INR 2.6 0.0-3.6 N [facility] Therapeutic Values of INR are generally between 2.0-3.0 except for Prosthetic Valves (High Risk 2.5-3.5) The use of INR is restricted to patient on stable oral anticoagulant therapy. ID Date Data Source [id number] 01/12/2020 07:38:00 AM EST [facility] ([facility]) Name Value Range Interpretation Code Description Data Fiordaliza rce(s) Supporting Document(s) Prothrombin time (PT) 29.8 SEC 8.9-13.3 [facility] ([facility]) INR in Platelet poor plasma by Coagulation assay 2.6 0.0-3.6 [facility] ([facility]) Therapeutic Values of INR are generally between 2.0-3.0 except for Prosthetic Valves (High Risk 2.5-3.5) The use of INR is restricted to patient on stable oral anticoagulant therapy. ID Date Data Source [id number] 12/15/2019 08:26:00 AM EST [facility] ([facility]) Name Value Range Interpretation Code Description Data Fiordaliza rce(s) Supporting Document(s) Prothrombin time (PT) 34.4 SEC 8.9-13.3 [facility] ([facility]) INR in Platelet poor plasma by Coagulation assay 3.0 0.0-3.6 [facility] ([facility]) Therapeutic Values of INR are generally between 2.0-3.0 except for Prosthetic Valves (High Risk 2.5-3.5) The use of INR is restricted to patient on stable oral anticoagulant therapy. ID Date Data Source [id number] 12/15/2019 01:19:00 PM [facility] Name Value Range Interpretation Code Description Data Fiordaliza rce(s) Supporting Document(s) PROTHROMBIN TIME 34.4 SEC 8.9-13.3 [facility] INR 3.0 0.0-3.6 [facility] Therapeutic Values of INR are generally between 2.0-3.0 except for Prosthetic Valves (High Risk 2.5-3.5) The use of INR is restricted to patient on stable oral anticoagulant therapy. ID Date Data Source [id number] 12/01/2019 07:52:00 AM EST [facility] ([facility]) Name Value Range Interpretation Code Description Data Fiordaliza rce(s) Supporting Document(s) Prothrombin time (PT) 41.2 SEC 8.9-13.3 [facility] ([facility]) INR in Platelet poor plasma by Coagulation assay 3.6 0.0-3.6 [facility] ([facility]) Therapeutic Values of INR are generally between 2.0-3.0 except for Prosthetic Valves (High Risk 2.5-3.5) The use of INR is restricted to patient on stable oral anticoagulant therapy. ID Date Data Source [id number] 12/01/2019 12:45:00 PM [facility] Name Value Range Interpretation Code Description Data Fiordaliza rce(s) Supporting Document(s) PROTHROMBIN TIME 41.2 SEC 8.9-13.3 [facility] INR 3.6 0.0-3.6 [facility] Therapeutic Values of INR are generally between 2.0-3.0 except for Prosthetic Valves (High Risk 2.5-3.5) The use of INR is restricted to patient on stable oral anticoagulant therapy. ID Date Data Source [id number] 11/21/2019 01:32:00 PM EST [facility] ([facility]) Name Value Range Interpretation Code Description Data Fiordaliza rce(s) Supporting Document(s) White Blood Count 8.1 4.0-10.0 [facility] Platelets 203 172-450 [facility] Hemoglobin 10.7 12.0-16.0 [facility] ([facility]) Red Blood Count 3.56 4.00-5.40 [facility] ([facility]io [facility]) Hematocrit 33.5 36.0-47.0 [facility] ([facility]) ID Date Data Source [id number] 11/21/2019 01:32:00 PM EST [facility] ([facility]i [facility]) Name Value Range Interpretation Code Description Data Fiordaliza rce(s) Supporting Document(s) Glucose 61 70-100 [facility] ([facility]) Blood Urea Nitrogen 78.5 7-25 [facility] (Ca [facility]ology [facility]) Glomerular filtration rate/1.73 sq M.pre dicted [Volume Rate/Area] in Serum or Plasma by Creatinine-based formula (MDRD) 20 [facility] ([facility]) Creatinine 2.36 0.6-1.4 [facility] ([facility]) Sodium 137.3 135-145 [facility] Chloride 103.2 94-110 [facility] Potassium 4.45 3.5-5.3 [facility] ([facility]) Carbon Dioxide 26.4 22-33 [facility] ([facility]iol [facility]) Phosphorus 4.90 [facility] ([facility]) Calcium 9.72 8.7-10.5 [facility] ([facility]) Albumin 4.1 3.5-5.3 [facility] ([facility]) Procedure Social History Code Duration Value Status Description Data Source(s ) Smoking 09/13/2020 12:00:00 AM EDT Patient has never smoked co mpleted Patient has never smoked [facility] ([facility]) Smoking 09/06/2020 12:00:00 AM EDT Former Smoker completed Former Smoker eCW1 (Formerly [facility]) Vital Signs ID Date Data Source [id number] Name Value Range Interpretation Code Description Data Source(s) Heart rate 64 /min 64 /min [facility] ([facility]) Regular Body mass index (BMI) [Ratio] 28.9 kg/m2 28.9 k g/m2 [facility] ([facility]) Body height 61 [in_i] 61 [in_i] [facility] ([facility]) 5'1" Body weight 153.00 [lb_av] 153.00 [lb_av] MEDEN T ([facility]) Diastolic blood pressure 64 mm[Hg] 64 mm[Hg] [facility] ([facility]) sitting, large cuff Systolic blood pressure 134 mm[Hg] 134 mm[Hg] M EDENT ([facility]) sitting, large cuff Respiratory rate 16 /min 16 /min [facility] ( [facility]) Diastolic blood pressure 78 mm[Hg] 78 mm[Hg] eCW1 (Formerly [facility]) Systolic blood pressure 126 mm[Hg] 126 mm[Hg] e CW1 (Formerly [facility]) Body temperature 97.6 [degF] 97.6 [degF] eCW1 ( Formerly [facility]) Respiratory rate 16 /min 16 /min eCW1 (Formerly [facility]) Heart rate 74 /min 74 /min eCW1 ([facility]) Body mass index (BMI) [Ratio] 29.81 kg/m2 29.81 kg/m2 eCW1 (Formerly [facility]) Body height 60.5 [in_i] 60.5 [in_i] eCW1 ([facility]) Body weight 155.2 [lb_av] 155.2 [lb_av] eCW1 ([facility]) Diastolic blood pressure 74 mm[Hg] 74 mm[Hg] [facility] ([facility]) sitting, large cuff Systolic blood pressure 126 mm[Hg] 126 mm[Hg] M EDENT ([facility]) sitting, large cuff Respiratory rate 16 /min 16 /min [facility] ( [facility]) Heart rate 60 /min 60 /min [facility] ([facility]io [facility]) Regular Body mass index (BMI) [Ratio] 27.8 kg/m2 27.8 k g/m2 [facility] ([facility]) Body height 61 [in_i] 61 [in_i] [facility] ([facility]i [facility]) 5'1" Body weight 147.00 [lb_av] 147.00 [lb_av] MEDEN T ([facility]) Body weight 67.757 kg 67.757 kg [facility] ([facility], ) Body mass index (BMI) [Ratio] 28.2 kg/m2 28.2 k g/m2 [facility] ([facility], ) Body weight 149.38 [lb_av] 149.38 [lb_av] MEDEN T ([facility], ) Body height 61 [in_i] 61 [in_i] [facility] ([facility]) 5'1" Diastolic blood pressure 68 mm[Hg] 68 mm[Hg] [facility] ([facility]) Systolic blood pressure 182 mm[Hg] 182 mm[Hg] M EDENT ([facility]) Diastolic blood pressure 64 mm[Hg] 64 mm[Hg] eCW1 (Formerly [facility]) Systolic blood pressure 158 mm[Hg] 158 mm[Hg] e CW1 (Formerly [facility]) Body temperature 95.4 [degF] 95.4 [degF] eCW1 ( Formerly [facility]) Heart rate 58 /min 58 /min eCW1 ([facility]) Body mass index (BMI) [Ratio] 28.23 kg/m2 28.23 kg/m2 eCW1 (Formerly [facility]) Body height 60.5 [in_us] 60.5 [in_us] eCW1 ([facility]) Body weight Measured 147 [lb_av] 147 [lb_av] eC W1 (Formerly [facility]) Body weight 67.813 kg 67.813 kg [facility] ([facility], ) Body mass index (BMI) [Ratio] 28.2 kg/m2 28.2 k g/m2 [facility] ([facility], ) Body weight 149.50 [lb_av] 149.50 [lb_av] MEDEN T ([facility], ) Body height 61 [in_i] 61 [in_i] [facility] ([facility], ) 5'1" Diastolic blood pressure 84 mm[Hg] 84 mm[Hg] [facility] ([facility], ) Systolic blood pressure 166 mm[Hg] 166 mm[Hg] JUMA ([facility], ) Diastolic blood pressure 66 mm[Hg] 66 mm[Hg] MANUEL ([facility]) Sitting, large cuff Systolic blood pressure 126 mm[Hg] 126 mm[Hg] M JUMA ([facility]) Sitting, large cuff Respiratory rate 16 /min 16 /min MANUEL ( [facility]) Heart rate 60 /min 60 /min MANUEL ([facility]io [facility]) Regular Body mass index (BMI) [Ratio] 28.3 kg/m2 28.3 k g/m2 [facility] ([facility]) Body height 61 [in_i] 61 [in_i] MANUEL (Cardi [facility]y [facility]) 5'1" Body weight 150.00 [lb_av] 150.00 [lb_av] ROSAURA Terry ([facility])
[2021-01-04] MEDS ORDERED: TORSEMIDE 20 MG TAB PO ONE (18:30)
[2021-01-04] MEDS ORDERED: **hydrALAZINE** 10 MG TAB PO ONE (18:30)
[2021-01-04] MEDS ORDERED: CARVedilol 3.125 MG TAB PO ONE (18:45)
[2021-01-04] MEDS ORDERED: PROMETHAZINE INJ 25 MG/ML VIAL (J2550) IV ONE (18:45)
[2021-01-04] MEDS ORDERED: VITA500038 PO (18:52)
[2021-01-04 18:53] LABS: PERCENT SATURATION 9.6 % (13.2-45.0)
[2021-01-04] MEDS ORDERED: PILL CUTTER 1 EACH XX ONE (18:57)
[2021-01-04 19:04] LABS: INR 2.24; PROTHROMBIN TIME 25.3 SECONDS (12.5-14.3)
[2021-01-04 19:05] LABS: PARTIAL THROMBOPLASTIN TIME 42.2 SECONDS (24.2-38.5)
[2021-01-04] MEDS ORDERED: EPOG1000 SC (19:05)
[2021-01-04] MEDS ORDERED: LABETALOL 100MG/20ML VIAL IV STA (19:24)
[2021-01-04] MEDS ORDERED: WARFARIN SOD 2.5MG TAB PO SCH (19:30)
[2021-01-04 19:50] LABS: RSV AMPLIFICATION NEGATIVE (NEGATIVE)
--- NOTE | 2021-01-04 19:58 | HPE ---
HISTORY AND PHYSICAL DATE OF ADMISSION: 01/04/2021 CHIEF COMPLAINT: Anemia on routine blood test, sent in by her detective private eye, hemoglobin of 7 from baseline of 10. HISTORY OF PRESENT ILLNESS: This is a 75-year-old female with a history significant for breast cancer, status post mastectomy, radiation, chemotherapy, valve replacement on chronic warfarin, chronic kidney disease stage 4, baseline creatinine 2 to 2.3, presents to the emergency room after routine blood testing for chronic warfarin and CBC, was found to be anemic with hemoglobin of 7. The patient denies any bright red blood per rectum, melena, black tarry stools. She denies any chest pain, pressure, tightness, shortness of breath, palpitation, lightheadedness or dizziness and has been in her usual state of health. The patient says that she gets B12 injections and last colonoscopy was unremarkable. The patient has not had any prior history of the esophagitis, gastritis and denies any coffee-ground emesis or hematemesis, no prior history of hemorrhoids or lower GI bleed. The patient was sent to the emergency room for further evaluation, was instructed to not to discontinue her warfarin due to a history of mechanical aortic and mitral valve replacements. PAST MEDICAL HISTORY: 1. Aortic, mitral valve replacement. 2. Rheumatic heart disease. 3. Diabetes. 4. Hypertension. 5. Hyperlipidemia. 6. Chronic kidney disease stage 4. 7. Pernicious anemia. 8. B12 deficiency. 9. Vitamin D deficiency. 10. Gastroesophageal reflux. 11. Breast cancer. ALLERGIES: AMLODIPINE CAUSING DIARRHEA. PAST SURGICAL HISTORY: 1. Mastectomy, right breast. 2. Tubal ligation. 3. Coronary catheterization. 4. Heart valve replacement. 5. Mitral and aortic valve. 6. AV fistula, right antecubital fossa, 2018. FAMILY HISTORY: Father , age 80, CAD, [place], diabetes and heart disease. Mother , age 80, natural causes. Two sons, one daughter. SOCIAL HISTORY: The patient is a former smoker, denies recreational drug use or alcohol abuse, retired, , lives in her own home with her . REVIEW OF SYSTEMS: As per HPI, 12-point system otherwise negative. PHYSICAL EXAMINATION: VITAL SIGNS: Temperature 98.5, pulse 80, respiratory rate 18, blood pressure 190/60, 100% on room air. GENERAL: The patient is awake, alert and oriented x3, positive pallor, no cyanosis or respiratory distress. Able to speak in full sentences without use of respiratory accessory muscles. HEENT: No JVD, no thyromegaly, no cervical lymphadenopathy. Poor dentition. Dry mucous membranes. LUNGS: Diminished but clear to auscultation, no wheezing, rales or rhonchi. HEART: S1, S2, in sinus rhythm. ABDOMEN: Obese, soft, nontender, nondistended. Positive bowel sounds x4 quadrants. EXTREMITIES: 2+ pitting edema, bilateral lower extremities. LABORATORY DATA: White count 8.3, hemoglobin 7.8, hematocrit 25.6, platelet count 258. Previous hemoglobin was 10.5, hematocrit of 33.4. Metabolic panel: Sodium 139, potassium 4, chloride 100, bicarb 30, BUN 87, creatinine 2.6. Baseline creatinine is 2.4. Ionized calcium 4.7, glucose of 131. INR is pending. ASSESSMENT AND PLAN: This is a 75-year-old female with hypertension, diabetes, chronic kidney disease stage 4, vitamin D and vitamin B12 deficient, right breast cancer, aortic, mitral valve replacement on chronic warfarin, presents to the emergency room with abnormal blood tests, hemoglobin of 7 from baseline of 10 and found to have the following acute issues: 1. Anemia, rule out acute GI bleed in the setting of chronic warfarin use for aortic and mitral valve replacement. The patient will be admitted to medical-surgical floor, transfused two units of RBCs, check iron studies, reticulocyte count, peripheral blood smear prior to blood transfusion, check Hemoccult stool, bowel regimen, repeat H&H after two units of blood transfusion. The patient needs to be continued on warfarin due to mechanical aortic valve. We will check hemoglobin, hematocrit serially. If heme positive stool, the patient will need to be placed on heparin, EGD and colonoscopy if needed, then resume back on warfarin once active bleeding has been identified and stabilized. 2. Chronic kidney disease, stage 4, currently at baseline, GFR, avoid nephrotoxins, renally dose all medications, strict Is and Os and daily weights. 3. Hypertensive urgency. The patient's blood pressure at the bedside is 210/68 and 237/112. The patient has been given her home dose of hydralazine, Coreg and she may be resumed on her home dose of torsemide. We will check blood pressure q.4 hourly. 4. Diabetes. Continue on renal consistent carbohydrate diet. Hyperglycemic protocol, fingersticks q.a.c., h.s. with sliding scale coverage per [facility] protocol. 5. Resume on home insulin. 6. Hyperlipidemia. Continue on Zocor. 7. DVT prophylaxis. Continue on warfarin.
[2021-01-04] MEDS: NITROGLYCERIN 2% OINT 1 GM *U/D* PKT TOP SCH (20:35)
[2021-01-04] MEDS: CARVedilol 6.25 MG TAB PO SCH (20:55)
[2021-01-04] MEDS ORDERED: hydrALAZINE 20MG/ML 1ML VIAL (J0360 PER 20MG) IV ONE (21:30)
[2021-01-04] MEDS: SIMVASTATIN 40 MG TAB PO SCH (21:59)
[2021-01-04] MEDS: PANTOPRAZOLE 40MG TAB (PROTONIX) PO SCH (21:59)
[2021-01-04] MEDS: MIRALAX *UNIT DOSE* 17GM PACKET PO SCH (22:01)
[2021-01-04] MEDS: SENOKOT S TAB PO SCH (22:01)
[2021-01-04] MEDS: CALCIUM ACETATE 667MG GELCAP PO SCH (22:22)
[2021-01-04] MEDS ORDERED: LABETALOL 100MG/20ML VIAL IV ONE (23:00)
[2021-01-05] VITALS (8 sets, daily range): BP systolic 128–190; BP diastolic 44–72
[2021-01-05 01:21] LABS: HEMATOCRIT 29.1 % (36.0-47.0); HEMOGLOBIN 9.2 g/dl (12.0-15.5)
[2021-01-05] MEDS: NITROGLYCERIN 2% OINT 1 GM *U/D* PKT TOP SCH (02:00)
[2021-01-05] MEDS ORDERED: hydrALAZINE 20MG/ML 1ML VIAL (J0360 PER 20MG) IV ONE (03:30)
[2021-01-05] MEDS ORDERED: LABETALOL 100MG/20ML VIAL IV ONE (04:15)
[2021-01-05 05:37] LABS: MEAN CORPUSCULAR HEMOGLOBIN 30.2 pg (27.0-33.0); MEAN CORPUSCULAR HGB CONC 32.3 g/dl (32.0-36.5); MEAN CORPUSCULAR VOLUME 93.7 fl (80.0-96.0); PLATELET COUNT, AUTOMATED 191 10^3/uL (150-450); RED BLOOD COUNT 3.31 10^6/uL (4.00-5.40); WHITE BLOOD COUNT 10.2 10^3/uL (4.0-10.0)
[2021-01-05 05:46] LABS: INR 2.07; PROTHROMBIN TIME 23.8 SECONDS (12.5-14.3)
[2021-01-05 06:00] LABS: CALCIUM LEVEL 8.4 MG/DL (8.8-10.2); CREATININE FOR GFR 2.63 MG/DL (0.55-1.30); GLOMERULAR FILTRATION RATE 18.9 (>39); POTASSIUM SERUM 4.5 MEQ/L (3.5-5.1)
[2021-01-05] MEDS ORDERED: BISACODYL 5 MG TAB PO ONE (08:00)
[2021-01-05] MEDS ORDERED: FLEET ENEMA PR ONE (08:00)
[2021-01-05] MEDS: PANTOPRAZOLE 40MG TAB (PROTONIX) PO SCH ×2 (08:23→21:35)
[2021-01-05] MEDS: SENOKOT S TAB PO SCH ×2 (08:24→19:27)
[2021-01-05] MEDS: **hydrALAZINE** 10 MG TAB PO SCH ×2 (08:24→21:00)
[2021-01-05] MEDS: FERROUS SULFATE 325MG TAB PO SCH (08:24)
[2021-01-05] MEDS: FEBUXOSTAT 40 MG TABLET (ULORIC) PO SCH (08:25)
[2021-01-05] MEDS: ISOSORBIDE MONONITRATE 10MG TABLET PO SCH ×2 (08:25→17:44)
[2021-01-05] MEDS: LEVEMIR (INSULIN DETEMIR) 1 UNITS/0.01ML SC SCH (08:25)
[2021-01-05] MEDS: CALCIUM ACETATE 667MG GELCAP PO SCH ×3 (08:25→21:35)
[2021-01-05] MEDS: CYANOCOBALAMIN 500 MCG TAB PO SCH (08:25)
[2021-01-05] MEDS: LETROZOLE 2.5 MG TAB PO SCH (08:25)
[2021-01-05] MEDS: MIRALAX *UNIT DOSE* 17GM PACKET PO SCH ×2 (08:26→19:26)
[2021-01-05] MEDS: CARVedilol 6.25 MG TAB PO SCH ×2 (08:28→21:36)
[2021-01-05] MEDS ORDERED: TORSEMIDE 20 MG TAB PO SCH (09:00)
[2021-01-05] MEDS: NovoLOG MIX 70/30 PER UNIT SC SCH ×3 (09:33→17:20)
--- NOTE | 2021-01-05 09:48 | IPN ---
PROGRESS NOTE DATE: 01/05/2021 SUBJECTIVE: Patient was seen and examined at the bedside. Chart has been reviewed. Despite being anemic, patient denied any symptoms of anemia including chest pain, pressure, tightness, shortness of breath, palpitations, lightheadedness, dizziness, weakness, fatigue. She also denies any bright red blood per rectum, melena, black tarry stools, coffee-ground emesis. This morning, she denies any fever, chills or cough. PHYSICAL EXAMINATION: VITAL SIGNS: Temperature 97.5, pulse 98, respiratory rate 20, blood pressure is 138/46, 95% on room air. GENERAL: The patient is awake, alert and oriented times 3, answering questions appropriately. Anicteric; no jaundice. No use of respiratory accessory muscles. Patient has no pallor, cyanosis. Speaks in full sentences. HEENT: Face is symmetric. Tongue is benign. No jugular venous distension (JVD), no thyromegaly, no cervical lymphadenopathy. Dry mucous membranes. No stridor on exam. LUNGS: Diminished but clear to auscultation; no wheezing or rales. HEART: S1, S2, metallic clicks in the apex. ABDOMEN: Soft, nontender, nondistended. Positive bowel sounds in all four quadrants. No rebound or guarding. EXTREMITIES: Trace to 1+ pitting edema. LABORATORY DATA: White count 10.2, hemoglobin 10, hematocrit 31. Previous hemoglobin was 7.8 and hematocrit of 25.6 on admission. Platelet count of 191. Sodium 140, potassium 4.5, chloride 106, bicarbonate 24, BUN 83, creatinine 2.63, glucose of 198. Previous creatinine on admission was 2.6. ASSESSMENT AND PLAN: This is a 75-year-old female with history of chronic kidney disease, stage IV; mitral and aortic valve replacement due to rheumatic heart disease on chronic warfarin, pernicious anemia, B12 and vitamin D deficiency, hyperlipidemia, reflux; breast cancer, status post right breast mastectomy; arteriovenous (AV) fistula right antecubital fossa admitted on 01/04/2021 due to abnormal hemoglobin of 7 from routine blood test at her interstate planner's office. IMPRESSION: 1. Anemia, rule out acute gastrointestinal (GI) bleeding in the setting of chronic warfarin for aortic and mitral valve replacement versus anemia of chronic disease from renal failure. Patient was transfused 2 units of red blood cells (RBCs) yesterday with appropriate increase of hemoglobin to 10. We are still waiting for Hemoccult stool. She is currently asymptomatic from her anemia. Due to chronic warfarin use for aortic and mitral valve replacement, patient will need to be scoped if heme positive stool because she needs to be chronically on anticoagulation. 2. Chronic kidney disease, stage IV at baseline creatinine. Avoid nephrotoxins, renal dose all medications, strict intake and output and daily weight. 3. Hypertensive urgency. Patient's blood pressure was over 210-237 systolic yesterday due to renal failure. Torsemide was held temporarily. She was placed back on hydralazine. She did receive a dose of IV labetalol as well as nitroglycerin patch yesterday. She is resumed back on her home dose of Coreg. We will start her on isosorbide 30 mg twice a day and increasing doses of hydralazine. Avoid nephrotoxins and monitor patient's repeat creatinine. 4. History of aortic and mitral valve replacement on chronic warfarin. Patient will be kept on warfarin for now. INR is at 2.0; therapeutic will be at 2.5 to 3.5. We are awaiting Hemoccult stool to determine if she needs an esophagogastroduodenoscopy (EGD), colonoscopy in light of new anemia requiring 2 units of red blood cell (RBC) transfusion. 5. Type 2 diabetes. Resume the insulin sliding scale. Consistent carbohydrate diet for now. 6. Hyperlipidemia, chronic. 7. History of pernicious anemia with B12 deficiency and vitamin D deficiency on supplement. 8. History of breast cancer, status post right breast mastectomy. Outpatient followup with Dr. Godfrey at the [facility]. 9. Reflux on PPI. DISPOSITION: While awaiting Hemoccult stool and drop in hemoglobin if stable and no signs of active gastrointestinal bleed, patient may be discharged home. Home safety evaluation today.
[2021-01-05] MEDS ORDERED: DEXTROSE 50% 50 ML SYRINGE IV PRN (17:00)
[2021-01-05] MEDS ORDERED: GLUCOSE 4GM CHEW TABLET PO PRN (17:00)
[2021-01-05] MEDS ORDERED: GLUCAGON INJ 1MG VIAL SC PRN (17:00)
[2021-01-05] MEDS: SUCRALFATE 1 GM TAB PO SCH ×2 (17:37→21:35)
[2021-01-05 18:11] LABS: HEMATOCRIT 32.2 % (36.0-47.0)
[2021-01-05] MEDS: SIMVASTATIN 40 MG TAB PO SCH (21:35)
[2021-01-06] VITALS (7 sets, daily range): BP systolic 111–166; BP diastolic 55–89
[2021-01-06 00:28] LABS: HEMOGLOBIN 8.3 g/dl (12.0-15.5)
[2021-01-06 06:20] LABS: HEMATOCRIT 27.4 % (36.0-47.0); HEMOGLOBIN 8.7 g/dl (12.0-15.5); MEAN CORPUSCULAR HEMOGLOBIN 30.3 pg (27.0-33.0); MEAN CORPUSCULAR HGB CONC 31.8 g/dl (32.0-36.5); MEAN CORPUSCULAR VOLUME 95.5 fl (80.0-96.0); PLATELET COUNT, AUTOMATED 166 10^3/uL (150-450); RED BLOOD COUNT 2.87 10^6/uL (4.00-5.40); WHITE BLOOD COUNT 6.2 10^3/uL (4.0-10.0)
[2021-01-06 06:34] LABS: INR 1.77
[2021-01-06 06:46] LABS: CALCIUM LEVEL 8.4 MG/DL (8.8-10.2); CREATININE FOR GFR 2.78 MG/DL (0.55-1.30); GLOMERULAR FILTRATION RATE 17.7 (>39); POTASSIUM SERUM 4.1 MEQ/L (3.5-5.1)
[2021-01-06] MEDS: NovoLOG MIX 70/30 PER UNIT SC SCH ×3 (08:42→17:30)
[2021-01-06] MEDS ORDERED: LEVEMIR (INSULIN DETEMIR) 1 UNITS/0.01ML SC SCH (09:00)
[2021-01-06] MEDS: SENOKOT S TAB PO SCH ×2 (09:00→21:00)
[2021-01-06] MEDS: CALCIUM ACETATE 667MG GELCAP PO SCH ×2 (09:00→23:15)
[2021-01-06] MEDS: CYANOCOBALAMIN 500 MCG TAB PO SCH (09:00)
[2021-01-06] MEDS: LETROZOLE 2.5 MG TAB PO SCH (09:00)
[2021-01-06] MEDS: FEBUXOSTAT 40 MG TABLET (ULORIC) PO SCH (09:00)
[2021-01-06] MEDS: CARVedilol 6.25 MG TAB PO SCH ×2 (09:00→23:15)
[2021-01-06] MEDS: MIRALAX *UNIT DOSE* 17GM PACKET PO SCH ×2 (09:00→21:00)
[2021-01-06] MEDS: FERROUS SULFATE 325MG TAB PO SCH (09:00)
[2021-01-06 10:30] LABS: HEMATOCRIT 30.3 % (36.0-47.0); HEMOGLOBIN 9.4 g/dl (12.0-15.5); MEAN CORPUSCULAR HEMOGLOBIN 30.2 pg (27.0-33.0); MEAN CORPUSCULAR VOLUME 97.4 fl (80.0-96.0); PLATELET COUNT, AUTOMATED 173 10^3/uL (150-450); RED BLOOD COUNT 3.11 10^6/uL (4.00-5.40); WHITE BLOOD COUNT 6.8 10^3/uL (4.0-10.0)
[2021-01-06] MEDS: SUCRALFATE 1 GM TAB PO SCH ×2 (10:58→23:14)
[2021-01-06] MEDS: LEVEMIR (INSULIN DETEMIR) 1 UNITS/0.01ML SC SCH (11:02)
[2021-01-06] MEDS: HEPARIN DRIP 25,000 UNITS in IV 1 EA IV SCH (11:29)
[2021-01-06] MEDS: **hydrALAZINE** 10 MG TAB PO SCH (11:30)
[2021-01-06] MEDS: ISOSORBIDE MONONITRATE 10MG TABLET PO SCH ×2 (11:30→18:15)
[2021-01-06] MEDS ORDERED: PANTOPRAZOLE 40MG VIAL (C9113 PER 1) IV ONE (13:00)
[2021-01-06] MEDS ORDERED: PANTOPRAZOLE SODIUM 40 MG in D5W 50 ML IV SCH (13:00)
--- NOTE | 2021-01-06 13:04 | IPN ---
PROGRESS NOTE DATE: 01/06/2021 SUBJECTIVE: Patient complains of two dark stools today, complains of generalized weakness, fatigue, without chest pain, pressure, tightness, shortness of breath, dizziness, lightheadedness. She was able to walk from the bathroom to her bed with a walker without any assistance. OBJECTIVE/PHYSICAL EXAMINATION:: VITAL SIGNS: Temperature 98.4, pulse 79, respiratory rate 20, blood pressure 114/61 and 97% on room air. GENERAL: Awake, alert, oriented to person, place and time. Answering questions appropriately. HEENT: No use of respiratory accessory muscles. No pallor. No JVD. No thyromegaly. LUNGS: Clear to auscultation. No wheezing, rales or rhonchi. HEART: S1, S2, metallic clicks noted in the apex and mitral area. No radiation. ABDOMEN: Soft, nontender, non-distended. Positive bowel sounds. EXTREMITIES: Positive edema. No cyanosis or clubbing. LABORATORY DATA: White count 6.2, hemoglobin 8.7, hematocrit 27, platelet count 166,000. Sodium 141, potassium 4, chloride 107, bicarb 27, BUN 82, creatinine 2.78, glucose 65. Hemoccult stool positive. ASSESSMENT AND PLAN: This is a 75-year-old female admitted on 01/04/2021 due to abnormal blood test hemoglobin of 7 done by her social work administrator and was sent to the hospital for evaluation and blood transfusion. The patient has a history of mitral aortic valve replacement due to rheumatic heart disease on chronic warfarin, pernicious anemia with B12 Vitamin D deficiency, chronic kidney disease stage 4, reflux, hyperlipidemia, breast cancer with right breast mastectomy, AV fistula, right antecubital fossa with the following acute issues: 1. Acute GI bleed in the setting of chronic warfarin for aortic mitral valve replacement as well as anemia of chronic disease from pernicious anemia and renal failure. Patient continues to have a decrease in hemoglobin despite RBC transfusion 2 units on admission and had black stools times two episodes during this admission. She complains of some weakness and has been kept n.p.o. Warfarin has been discontinued. She has been placed on I.V. Heparin until the EGD can be done by general surgeon today. Hemoglobin and hematocrit has been cycled, transfuse RBCs for ongoing blood loss and symptomatic anemia if needed. She is on Protonix and n.p.o. status with hyperglycemic protocol. 2. Chronic kidney disease stage 3 at baseline creatinine stage 4: Will continue to monitor for now and may need to get nephrology to manage fluid balance. 3. Mitral valve aortic valve replacement: Currently on I.V. Heparin, awaiting EGD to further evaluate patient's acute blood loss anemia with upper GI bleed prior to resuming the patient back on Warfarin. 4. Pernicious anemia: B12 deficiency chronic, patient has received RBC transfusion. 5. Hypertension: Continue on Hydralazine and Isosorbide. Avoid RONNY inhibitors. 6. Type 2 diabetes: On insulin sliding scale, fingersticks, hyperglycemic protocol while n.p.o. MTDD
--- NOTE | 2021-01-06 15:57 | IPNPDOC ---
Text Note Date of Service The patient was seen on 01/06/21. NOTE Pt. was seen and examined. Full consult will be dictated. No changes to H+P. Consent is signed and she is going for an EGD this evening. Colt Conklin DO VS,Marilee, I+O VS, Marilee, I+O Laboratory Tests 01/05/21 17:46 01/05/21 23:48 01/06/21 05:51 01/06/21 09:52 Vital Signs Date Time Temp Pulse Resp B/P (MAP) Pulse Ox O2 Delivery O2 Flow Rate FiO2 01/06/21 15:15 99.5 76 20 141/55 (83) 98 Room Air I&O- Last 24 Hours up to 6 AM 01/06/21 06:00 Intake Total 1110 ml Output Total 900 ml Balance 210 ml GEMMA CONKLIN DO Jan 06, 2021 15:57
[2021-01-06] MEDS: NITROGLYCERIN 2% OINT 1 GM *U/D* PKT TOP SCH (18:00)
[2021-01-06] MEDS ORDERED: propofoL 200 MG/20 ML VIAL As Ordered ONE (18:32)
[2021-01-06] MEDS ORDERED: LIDOCAINE 2% 100MG/5ML SDV (FOR ANES.) As Ordered ONE (18:32)
[2021-01-06] MEDS: PANTOPRAZOLE 40MG VIAL (C9113 PER 1) IV SCH (23:14)
[2021-01-06] MEDS: SIMVASTATIN 40 MG TAB PO SCH (23:15)
[2021-01-06 23:30] LABS: BASO % 0.3 % (0.0-1.0); EOS # 0.6 10^3/uL (0.0-0.5); EOS % 9.5 % (0.0-3.0); HEMATOCRIT 28.8 % (36.0-47.0); HEMOGLOBIN 8.8 g/dl (12.0-15.5); LYMPH % 14.4 % (24.0-44.0); MEAN CORPUSCULAR HEMOGLOBIN 29.9 pg (27.0-33.0); MEAN CORPUSCULAR HGB CONC 30.6 g/dl (32.0-36.5); MONO % 14.6 % (2.0-8.0); NEUTROPHILS # 4.1 10^3/uL (1.5-8.5); NEUTROPHILS % 60.7 % (36.0-66.0); PLATELET COUNT, AUTOMATED 153 10^3/uL (150-450); RED BLOOD COUNT 2.94 10^6/uL (4.00-5.40); WHITE BLOOD COUNT 6.7 10^3/uL (4.0-10.0)
[2021-01-07] VITALS (15 sets, daily range): BP systolic 138–196; BP diastolic 55–78
[2021-01-07 04:59] LABS: HEMATOCRIT 25.9 % (36.0-47.0); HEMOGLOBIN 7.9 g/dl (12.0-15.5); MEAN CORPUSCULAR HEMOGLOBIN 29.6 pg (27.0-33.0); MEAN CORPUSCULAR HGB CONC 30.5 g/dl (32.0-36.5); PLATELET COUNT, AUTOMATED 143 10^3/uL (150-450); RED BLOOD COUNT 2.67 10^6/uL (4.00-5.40); WHITE BLOOD COUNT 5.7 10^3/uL (4.0-10.0)
[2021-01-07 05:09] LABS: INR 1.75; PROTHROMBIN TIME 20.8 SECONDS (12.5-14.3)
[2021-01-07 05:19] LABS: PARTIAL THROMBOPLASTIN TIME 56.7 SECONDS (24.2-38.5)
[2021-01-07] MEDS: NITROGLYCERIN 2% OINT 1 GM *U/D* PKT TOP SCH ×5 (06:00→23:21)
[2021-01-07] MEDS: HEPARIN SOD (PORCINE) 5000UNITS/ML 1ML VIAL/SYRINGE IV PRN (06:08)
--- NOTE | 2021-01-07 06:39 | RO ---
OPERATIVE NOTE DATE OF OPERATION: 01/06/2021 PREOPERATIVE DIAGNOSIS: Anemia. POSTOPERATIVE DIAGNOSIS: Anemia with duodenal ulcer, as well as irregular Z-line. PROCEDURE: Esophagogastroduodenoscopy (EGD) SURGEON: Dakota Conklin DO POWER TRUCK DRIVER: None. ANESTHESIA: IV sedation ESTIMATED BLOOD LOSS: None. COMPLICATIONS: None. INDICATION FOR PROCEDURE: The patient is 75-year-old female presenting with a history of anemia likely secondary to gastrointestinal (GI) bleed with heme positive stool. Recommendation is to proceed with upper endoscopy. Risks and benefits of procedure not limited to, but included bleeding, infection, damage to surrounding structures and need for further surgery were discussed in detail with the patient. Informed consent was obtained and the procedure was planned. DESCRIPTION OF PROCEDURE: The patient was brought back to operating room 3. After sufficient sedation, she was placed in the left lateral decubitus position and a bite block was placed. Next, the endoscope was passed through the oropharynx, down through the esophagus to the stomach and into the second portion of the duodenum. The scope was then slowly brought back. There was a duodenal ulcer, non-bleeding, identified in the duodenal bulb. The scope was then brought back inside of the stomach. There was a large amount of fluid debris throughout the entire stomach. No large boluses of fluid, but there was generalized debris. No signs of gastric ulcers or gastric inflammation. The scope was retroflexed and no signs of any hiatal hernia. The scope was then brought back out through the esophagus. There was an irregular Z-line at the GE junction, but no signs of any inflammation in that area. Biopsies were avoided secondary to her being on blood thinners. Scope was then removed. The patient was awakened from anesthesia and sent to the post anesthesia care unit (PACU) in stable condition.
[2021-01-07 06:59] LABS: CALCIUM LEVEL 8.6 MG/DL (8.8-10.2); CREATININE FOR GFR 2.7 MG/DL (0.55-1.30); GLOMERULAR FILTRATION RATE 18.3 (>39); POTASSIUM SERUM 3.8 MEQ/L (3.5-5.1)
[2021-01-07] MEDS: NovoLOG MIX 70/30 PER UNIT SC SCH ×3 (07:30→17:41)
[2021-01-07] MEDS: LEVEMIR (INSULIN DETEMIR) 1 UNITS/0.01ML SC SCH (08:21)
[2021-01-07] MEDS: PANTOPRAZOLE 40MG VIAL (C9113 PER 1) IV SCH ×2 (08:21→20:06)
[2021-01-07] MEDS: FERROUS SULFATE 325MG TAB PO SCH (08:22)
[2021-01-07] MEDS: CALCIUM ACETATE 667MG GELCAP PO SCH ×3 (08:22→20:06)
[2021-01-07] MEDS: MIRALAX *UNIT DOSE* 17GM PACKET PO SCH ×2 (08:22→20:07)
[2021-01-07] MEDS: SUCRALFATE 1 GM TAB PO SCH ×4 (08:22→20:06)
[2021-01-07] MEDS: FEBUXOSTAT 40 MG TABLET (ULORIC) PO SCH (08:22)
[2021-01-07] MEDS: CYANOCOBALAMIN 500 MCG TAB PO SCH (08:22)
[2021-01-07] MEDS: SENOKOT S TAB PO SCH ×2 (08:22→20:06)
[2021-01-07] MEDS: CARVedilol 6.25 MG TAB PO SCH ×2 (08:26→20:06)
[2021-01-07] MEDS: LETROZOLE 2.5 MG TAB PO SCH (12:58)
--- NOTE | 2021-01-07 14:28 | CR ---
CONSULTATION DATE: 01/06/2021 CHIEF COMPLAINT: Anemia. HISTORY OF PRESENT ILLNESS: The patient is a 75-year-old female. She has had a history of valve replacement. She is on chronic coumadin. She was sent in by her human resources manager on the due to having anemia. She was transfused a couple of units. Her hemoglobin responded appropriately but then it has been decreasing again due to having fecal occult blood in her stool. I was asked to evaluate her. She denies any recent blood in her stool. Denies any dark tarry stools. No chest pain. No shortness of breath. No vomiting or throwing up of any blood. No heartburn or acid reflux. PAST MEDICAL HISTORY: 1. Aortic and mitral valve replacement. 2. Rheumatic heart disease. 3. Diabetes. 4. Hypertension. 5. Hyperlipidemia. 6. Chronic kidney disease. 7. Pernicious anemia. 8. B12 deficiency. 9. Vitamin D deficiency. 10.GERD. 11.Breast cancer. PAST SURGICAL HISTORY: 1. Mastectomy. 2. Tubal ligation. 3. Coronary catheterization. 4. Heart valve replacement, mitral and aortic valves. 5. AV fistula. ALLERGIES: Amlodipine. MEDICATIONS: Please see med req. FAMILY HISTORY: Noncontributory. SOCIAL HISTORY: Denies any current drug, alcohol or tobacco abuse. REVIEW OF SYSTEMS: Pertinent positives and negative as stated in the HPI. PHYSICAL EXAMINATION: GENERAL: Alert and oriented x3, in no acute distress. VITAL SIGNS: Temperature 99.5, pulse 76, respirations 20, blood pressure 141/55, pulse oximetry is 98% on room air. HEENT: Pupils equally round and reactive to light and accommodation. HEART: S1 and S2, regular rate and rhythm. LUNGS: Clear to auscultation bilaterally. ABDOMEN: Soft, nontender and nondistended. EXTREMITIES: No cyanosis, clubbing or edema. LABORATORY DATA: White count is 6.8, hemoglobin is currently 9.4, up from 8.7 that was completed this morning, that is without receiving anymore blood. Platelets are 173,000. Creatinine 2.78. ASSESSMENT AND PLAN: The patient is a 75-year-old female with a history of heart valve replacement on chronic coumadin who presented with anemia from her human resources manager. Recommendation was to proceed with endoscopy due to possible upper GI bleed. The risks and benefits of procedure not limited to include bleeding, infection, infection, perforation and possibility of missing something were discussed in detail with the patient and informed consent was obtained at bedside and procedure was planned.
[2021-01-07] MEDS: HEPARIN DRIP 25,000 UNITS in IV 1 EA IV SCH (15:30)
--- NOTE | 2021-01-07 15:46 | IPN ---
PROGRESS NOTE DATE: 01/07/21 SUBJECTIVE: Patient denies any repeat episodes of black tarry stools. Denies chest pain, pressure or tightness, lightheadedness, dizziness or shortness of breath, pleuritic chest. Afebrile with no complaints, no cough. PHYSICAL EXAMINATION ON DISCHARGE: Vital signs: Temperature 96.4, pulse 74, respiratory rate 16, blood pressure 165/63, 98% on room air. General: Awake, alert, oriented to person, place and time, answering questions appropriately. Lungs: Diminished, fine crackles. Heart: S1 and S2 regular rate and rhythm. Patient has metallic click from aortic and mitral replacement valves in the apex and aortic area. Extremities: Positive edema. No cyanosis or clubbing. Abdomen: Soft, nontender, nondistended, positive bowel sounds times 4 quadrants, no guarding or rebound or hepatosplenomegaly. LABORATORY DATA: White count 5.7, hemoglobin 7.9, hematocrit 25, platelet count 143 previous platelet count of 153. Sodium 142, potassium 3.8, chloride 108, bicarb 26, BUN 81, creatinine 2.7, glucose 131. Hemoccult stool positive. IMAGING STUDIES: EGD shows duodenal ulcer. ASSESSMENT: This is a 75-year-old female admitted on 01/04 due to abnromal blood test, hemoglobin of 7 done by her electronics engineering technologist, sent to the hospital for evaluation and blood transfusion. Patient has chronic mitral and aortic valve replacement due to rheumatic heart disease on chronic warfarin, pernicious anemia with B12 and vitamin D deficiency, chronic kidney disease stage 4, reflux, hyperlipidemia, breast cancer with right breast mastectomy, AV fistula, right antecubital fossa with the following acute issues: 1. Acute blood loss anemia. 2. Duodenal ulcer with active GI bleed. 3. Chronic kidney disease stage 3-4. 4. Mitral valve and aortic valve replacement requiring chronic anticoagulation. 5. History of pernicious anemia, B12 deficiency and vitamin D deficiency. 6. Hypertension. 7. Type-2 diabetes. PLAN: Patient is currently still dropping her hemoglobin and currently unstable. She was found to have a duodenal ulcer and will be continued on Protonix 40 I.V. twice a day and Carafate 1 gram before meals/at bedtime. She will be transfused 2 units of RBCs until stable. We will continue I.V. heparin until hemoglobin and hematocrit is stable. Once the H&H is stable patient will be bridged with warfarin to target INR of 2.5. We will continue with PPI and Carafate. Once the INR is 2.5 patient may be discharged home.
[2021-01-07] MEDS: SIMVASTATIN 40 MG TAB PO SCH (20:06)
[2021-01-07] MEDS ORDERED: FUROSEMIDE 40MG/4ML VIAL (J1940) IV ONE ×2 (22:15)
[2021-01-08] VITALS (8 sets, daily range): BP systolic 122–190; BP diastolic 50–63
[2021-01-08] MEDS: ACETAMINOPHEN TAB 650MG DOSE (2X325MG) PO PRN ×3 (00:47→20:55)
[2021-01-08 00:55] LABS: HEMATOCRIT 35.3 % (36.0-47.0); MEAN CORPUSCULAR HEMOGLOBIN 29.7 pg (27.0-33.0); MEAN CORPUSCULAR VOLUME 92.9 fl (80.0-96.0); PLATELET COUNT, AUTOMATED 159 10^3/uL (150-450); WHITE BLOOD COUNT 8.3 10^3/uL (4.0-10.0)
[2021-01-08 01:00] LABS: HEMOGLOBIN 11.3 g/dl (12.0-15.5)
[2021-01-08] MEDS ORDERED: METOPROLOL TART 12.5 MG PER 1/2 TAB PO ONE (01:15)
[2021-01-08] MEDS: NITROGLYCERIN 2% OINT 1 GM *U/D* PKT TOP SCH ×4 (05:22→23:23)
[2021-01-08 05:38] LABS: HEMATOCRIT 30.3 % (36.0-47.0); HEMOGLOBIN 9.5 g/dl (12.0-15.5); MEAN CORPUSCULAR HEMOGLOBIN 29.4 pg (27.0-33.0); MEAN CORPUSCULAR HGB CONC 31.4 g/dl (32.0-36.5); MEAN CORPUSCULAR VOLUME 93.8 fl (80.0-96.0); PLATELET COUNT, AUTOMATED 145 10^3/uL (150-450); RED BLOOD COUNT 3.23 10^6/uL (4.00-5.40); WHITE BLOOD COUNT 8.1 10^3/uL (4.0-10.0)
[2021-01-08 05:42] LABS: PROTHROMBIN TIME 19.4 SECONDS (12.5-14.3)
[2021-01-08 05:56] LABS: CALCIUM LEVEL 8.1 MG/DL (8.8-10.2); CREATININE FOR GFR 2.6 MG/DL (0.55-1.30); GLOMERULAR FILTRATION RATE 19.1 (>39); POTASSIUM SERUM 4.2 MEQ/L (3.5-5.1)
[2021-01-08 06:44] LABS: PARTIAL THROMBOPLASTIN TIME > 240.0 SECONDS (24.2-38.5)
[2021-01-08] MEDS: HEPARIN SOD (PORCINE) 5000UNITS/ML 1ML VIAL/SYRINGE IV PRN (07:46)
[2021-01-08] MEDS: CYANOCOBALAMIN 500 MCG TAB PO SCH (08:13)
[2021-01-08] MEDS: FEBUXOSTAT 40 MG TABLET (ULORIC) PO SCH (08:13)
[2021-01-08] MEDS: LETROZOLE 2.5 MG TAB PO SCH (08:13)
[2021-01-08] MEDS: CALCIUM ACETATE 667MG GELCAP PO SCH ×3 (08:13→20:57)
[2021-01-08] MEDS: SUCRALFATE 1 GM TAB PO SCH ×4 (08:13→20:56)
[2021-01-08] MEDS: SENOKOT S TAB PO SCH ×2 (08:13→20:56)
[2021-01-08] MEDS: CARVedilol 6.25 MG TAB PO SCH ×2 (08:14→21:00)
[2021-01-08] MEDS: MIRALAX *UNIT DOSE* 17GM PACKET PO SCH ×2 (08:14→20:56)
[2021-01-08] MEDS: FERROUS SULFATE 325MG TAB PO SCH (08:14)
[2021-01-08] MEDS: PANTOPRAZOLE 40MG VIAL (C9113 PER 1) IV SCH ×2 (08:15→20:57)
[2021-01-08] MEDS: NovoLOG MIX 70/30 PER UNIT SC SCH ×3 (08:15→17:30)
[2021-01-08] MEDS: LEVEMIR (INSULIN DETEMIR) 1 UNITS/0.01ML SC SCH (08:15)
--- NOTE | 2021-01-08 09:58 | REP ---
INDICATION: left shoulder pain. COMPARISON: PA chest 09/08/2013 TECHNIQUE: Three views FINDINGS: AC joint shows spurring and inferiorly and slight narrowing. There is no elevation of the clavicle in relationship to the acromion. No fracture of the clavicle, visualized ribs, scapula or humerus. There are axillary surgical clips evident. No abnormal soft tissue calcifications are present there are minor degenerative changes at the inferior aspect of the glenohumeral joint. The adjacent left upper chest demonstrates no evidence of pneumothorax. There calcifications in the aortic arch and sternotomy wires visible IMPRESSION: AC and glenohumeral joint mild degenerative changes without visible fracture, bony destructive lesion, subluxation or abnormal soft tissue calcification. Axillary surgical clips on the left with sternotomy wires, calcifications in the aortic arch and no findings in the left upper lung zone. <Electronically signed by Julian Reyes > 01/08/21 [id number]
[2021-01-08] MEDS ORDERED: oxyCODONE 5MG TAB PO ONE (10:00)
[2021-01-08 10:22] LABS: HEMATOCRIT 32.3 % (36.0-47.0); HEMOGLOBIN 10.1 g/dl (12.0-15.5)
[2021-01-08] MEDS: HEPARIN DRIP 25,000 UNITS in IV 1 EA IV SCH (10:45)
[2021-01-08] MEDS ORDERED: ACETAMINOPHEN 500 MG TAB PO ONE (11:00)
--- NOTE | 2021-01-08 13:57 | IPN ---
PROGRESS NOTE DATE: 01/08/2021 Patient complains of left shoulder pain, unable to elevate her left upper extremity beyond her head. She has had this before and usually takes Tylenol at home. Patient's hemoglobin continues to drop. She otherwise denies any shortness of breath, chest pain, pressure, tightness, lightheadedness, dizziness when she ambulates. Denies any bright red blood per rectum, melena, black tarry stools, coffee ground emesis, or hematemesis. No other issues per nursing overnight. She is continued on intravenous heparin drip and had a little bit of bleed at the IV site which was controlled and not requiring any pressure dressing. PHYSICAL EXAMINATION: Vital signs: Temperature 99.2, pulse 71, respiratory rate 22, blood pressure 124/57, 97% on room air. Generally: Patient is awake, alert, oriented to person, place, and time, answering questions appropriately, no use of respiratory accessory muscles. No cyanosis, no clubbing. Able to speak in full sentences. No jugular venous distension (JVD), thyromegaly, cervical lymphadenopathy. Dry mucous membranes. Lungs are diminished but clear to auscultation. No wheezing, rales, or rhonchi. Heart: S1, S2, sinus rhythm. Patient has metallic click both in the aortic and mitral area due to mechanical aortic and mitral valve. Abdomen: Soft, nontender, nondistended, obese. No rebound, guarding. Positive bowel sounds times four quadrants. Extremities: Positive edema bilaterally. LABORATORY DATA: White count 8.1, hemoglobin 10, hematocrit 32, platelet count 145, sodium 143, potassium 4.2, chloride 109, bicarbonate 25, BUN 82, creatinine 2.6, glucose of 236, PTT at 190.8. Shoulder x-ray 01/08/2021 acromioclavicular (AC) and glenohumeral joint with mild degenerative changes without visible fracture or bony destructive lesion, subluxation, or soft tissue calcification. Prior surgical clips on the left with sternotomy wires, calcification within aortic arch and no findings in the left upper lung zone. ASSESSMENT AND PLAN: This is a 75-year-old female with history of rheumatic heart disease with mechanical valve replacement, aortic valve replacement, chronic kidney disease stage IV, hypertension, diabetes, hyperlipidemia, pernicious anemia, B12 and vitamin D deficiency, reflux, breast cancer with right breast mastectomy, arteriovenous (AV) fistula right antecubital fossa presented to the emergency room after being found to have abnormal blood test with hemoglobin of 7 from baseline of 10 at her auto collision repair instructor's office, patient admitted to black stools at home, she had a scope by Dr. Conklin, found to have a duodenal ulcer. IMPRESSION: 1. Acute blood loss anemia. 2. Acute upper gastrointestinal (GI) bleed. 3. Duodenal ulcer. 4. History of rheumatic heart disease with aortic valve replacement and mitral valve replacement on chronic warfarin. 5. Chronic kidney disease stage IV. 6. Type 2 diabetes. 7. Hypertension. 8. Hyperlipidemia. 9. Obesity. 10. Pernicious anemia with B12, vitamin D deficiency. 11. Reflux. 12. History of breast cancer status post right mastectomy. PLAN: Patient is doing well on IV heparin drip with no obvious signs of recurrent gastrointestinal (GI) bleed. She will be restarted back on her home dose of warfarin with bridge therapy until the INR is therapeutic at 2.5 to 3.5 due to her mechanical aortic and mitral valve. At this time, patient is continued on Protonix 40 mg by mouth twice a day and Carafate 1 mg before meals and at bedtime. She is at her baseline creatinine. Avoid nephrotoxins, renally dose all medications. She is on hypoglycemic protocol and continued on lower dose of her long acting insulin. DISPOSITION: 2-3 days until INR is therapeutic and hemoglobin and hematocrit remain stable. MTDD
[2021-01-08 16:27] LABS: HEMATOCRIT 31.2 % (36.0-47.0); HEMOGLOBIN 9.7 g/dl (12.0-15.5)
[2021-01-08] MEDS ORDERED: WARFARIN SOD 2MG TAB PO SCH (17:00)
[2021-01-08] MEDS: SIMVASTATIN 40 MG TAB PO SCH (20:57)
[2021-01-08 23:40] LABS: HEMOGLOBIN 9.3 g/dl (12.0-15.5)
[2021-01-09 02:00] VITALS: BP 162/66
[2021-01-09] MEDS: HEPARIN DRIP 25,000 UNITS in IV 1 EA IV SCH (02:39)
[2021-01-09 06:00] VITALS: BP 144/52
[2021-01-09] MEDS: NITROGLYCERIN 2% OINT 1 GM *U/D* PKT TOP SCH ×3 (06:00→17:39)
[2021-01-09 06:21] LABS: HEMATOCRIT 29.5 % (36.0-47.0); MEAN CORPUSCULAR HEMOGLOBIN 29.1 pg (27.0-33.0); MEAN CORPUSCULAR HGB CONC 30.5 g/dl (32.0-36.5); MEAN CORPUSCULAR VOLUME 95.5 fl (80.0-96.0); PLATELET COUNT, AUTOMATED 135 10^3/uL (150-450); RED BLOOD COUNT 3.09 10^6/uL (4.00-5.40); WHITE BLOOD COUNT 6.4 10^3/uL (4.0-10.0)
[2021-01-09 06:38] LABS: CALCIUM LEVEL 8.1 MG/DL (8.8-10.2); CREATININE FOR GFR 2.52 MG/DL (0.55-1.30); GLOMERULAR FILTRATION RATE 19.8 (>39); POTASSIUM SERUM 4.4 MEQ/L (3.5-5.1)
[2021-01-09 06:41] LABS: INR 1.5; PROTHROMBIN TIME 18.4 SECONDS (12.5-14.3)
[2021-01-09] MEDS: NovoLOG MIX 70/30 PER UNIT SC SCH ×3 (08:47→18:01)
[2021-01-09 08:58] LABS: HEMATOCRIT 33.4 % (36.0-47.0); HEMOGLOBIN 10.5 g/dl (12.0-15.5); MEAN CORPUSCULAR HEMOGLOBIN 30.1 pg (27.0-33.0); MEAN CORPUSCULAR HGB CONC 31.4 g/dl (32.0-36.5); MEAN CORPUSCULAR VOLUME 95.7 fl (80.0-96.0); PLATELET COUNT, AUTOMATED 153 10^3/uL (150-450); RED BLOOD COUNT 3.49 10^6/uL (4.00-5.40); WHITE BLOOD COUNT 8.2 10^3/uL (4.0-10.0)
[2021-01-09] MEDS: LEVEMIR (INSULIN DETEMIR) 1 UNITS/0.01ML SC SCH (08:58)
[2021-01-09] MEDS: MIRALAX *UNIT DOSE* 17GM PACKET PO SCH ×2 (09:08→20:22)
[2021-01-09] MEDS: FEBUXOSTAT 40 MG TABLET (ULORIC) PO SCH (09:09)
[2021-01-09] MEDS: LETROZOLE 2.5 MG TAB PO SCH (09:09)
[2021-01-09] MEDS: SUCRALFATE 1 GM TAB PO SCH ×4 (09:09→20:28)
[2021-01-09] MEDS: SENOKOT S TAB PO SCH ×2 (09:09→20:22)
[2021-01-09] MEDS: CYANOCOBALAMIN 500 MCG TAB PO SCH (09:10)
[2021-01-09] MEDS: PANTOPRAZOLE 40MG VIAL (C9113 PER 1) IV SCH ×2 (09:10→20:28)
[2021-01-09] MEDS: FERROUS SULFATE 325MG TAB PO SCH (09:10)
[2021-01-09] MEDS: CALCIUM ACETATE 667MG GELCAP PO SCH ×3 (09:10→20:28)
[2021-01-09] MEDS: CARVedilol 6.25 MG TAB PO SCH ×2 (09:11→20:30)
--- NOTE | 2021-01-09 10:37 | IPNPDOC ---
Date Seen The patient was seen on 01/09/21. Progress Note Subjective: Patient denies any black tarry stools, hematemesis, coffee-ground emesis, shortness breath, chest pain, pressure, tightness, palpitations, lightheadedness or dizziness. No complaints of fever, chills or cough. Overnight, eating her breakfast at 45 angle head of bed elevation this morning without issues. She denies any nausea, vomiting, abdominal pain or abdominal distention. No other issues per nursing. Telemetry sinus rhythm . X-ray of the left shoulder was negative aside from degenerative joint disease. She has no complaints of pain this morning Objective: Physical exam: Vital signs: See below Generally: Patient is awake, alert, oriented to person, place, and time, answering questions appropriately, no use of respiratory accessory muscles. No cyanosis, no clubbing. Able to speak in full sentences. , Eating her breakfast comfortably while sitting up. No aspiration risk . HEENT No jugular venous distension (JVD), thyromegaly, cervical lymphadenopathy. , Moist mucous membranes. Lungs are diminished but clear to auscultation. No wheezing, rales, or rhonchi. Heart: S1, S2, sinus rhythm. Patient has metallic click both in the aortic and mitral area due to mechanical aortic and mitral valve. Abdomen: Soft, nontender, nondistended, obese. No rebound, guarding. Positive bowel sounds times four quadrants. Extremities: Positive edema bilaterally. LABORATORY DATA: See below Shoulder x-ray 01/08/2021 acromioclavicular (AC) and glenohumeral joint with mild degenerative changes without visible fracture or bony destructive lesion, subluxation, or soft tissue calcification. Prior surgical clips on the left with sternotomy wires, calcification within aortic arch and no findings in the left upper lung zone. ASSESSMENT AND PLAN: This is a 75-year-old female with history of rheumatic heart disease with mechanical valve replacement, aortic valve replacement, chronic kidney disease stage IV, hypertension, diabetes, hyperlipidemia, pernicious anemia, B12 and vitamin D deficiency, reflux, breast cancer with right breast mastectomy, arteriovenous (AV) fistula right antecubital fossa presented to the emergency room after being found to have abnormal blood test with hemoglobin of 7 from baseline of 10 at her clam shovel operator's office, patient admitted to black stools at home, she had a scope by Dr. Conklin, found to have a duodenal ulcer. IMPRESSION: 1. Acute blood loss anemia. 2. Acute upper gastrointestinal (GI) bleed. 3. Duodenal ulcer. 4. History of rheumatic heart disease with aortic valve replacement and mitral valve replacement on chronic warfarin. 5. Chronic kidney disease stage IV. 6. Type 2 diabetes. 7. Hypertension. 8. Hyperlipidemia. 9. Obesity. 10. Pernicious anemia with B12, vitamin D deficiency. 11. Reflux. 12. History of breast cancer status post right mastectomy. 13. . Left shoulder osteoarthritis PLAN: Patient is medically stable, awaiting for therapeutic INR of 2.5-3.5 With heparin for bridge therapy with warfarin, without signs of overt GI bleed. Patient has been treated with Protonix and Carafate. Status post EGD showed a duodenal ulcer. Despite heme-positive stool. Patient's anti-coagulation cannot be interrupted due to mechanical aortic and mitral valve replacement with very high risk of thrombotic event and possible CVA. Patient is to be monitored for any active GI bleed while she is on heparin and warfarin. If she develops bright red blood per rectum. She may need a colonoscopy since the EGD only showed duodenal ulcer. Patient may be discharged home once INR is 2.5 with stable hemoglobin with no signs of active GI bleed at that point, heparin will then be discontinued. PT, OT consulted VS, I&O, 24H, Mar[facility] Vital Signs/I&O Vital Signs Date Time Temp Pulse Resp B/P (MAP) Pulse Ox O2 Delivery O2 Flow Rate FiO2 01/09/21 09:11 76 160/60 01/09/21 06:00 96.8 18 97 Room Air I&O- Last 24 Hours up to 6 AM 01/09/21 06:00 Intake Total 1230 ml Output Total 1825 ml Balance -595 ml Laboratory Data 24H LABS Laboratory Tests 2 01/08/21 11:29: Bedside Glucose (Misc Panel) 177H 01/08/21 16:15: Activated Partial Thromboplast Time 72.7H 01/08/21 17:43: Bedside Glucose (Misc Panel) 108 01/08/21 21:13: Bedside Glucose (Misc Panel) 113H 01/08/21 23:20: Activated Partial Thromboplast Time 116.0H 01/09/21 05:44: Nucleated Red Blood Cells % (auto) 0.0, Prothrombin Time 18.4H, Prothromb Time International Ratio 1.50, Anion Gap 8, Glomerular Filtration Rate 19.8L, Calcium Level 8.1L 01/09/21 08:37: Activated Partial Thromboplast Time 87.9H, Nucleated Red Blood Cells % (auto) 0.0 CBC/BMP Laboratory Tests 01/08/21 16:15 01/08/21 23:20 01/09/21 05:44 01/09/21 08:37 Microbiology Microbiology 01/08/21 Stool Occult Blood (ADRIÁN) - Final, Complete 01/05/21 Stool Occult Blood (ADRIÁN) - Final, Complete ROCKY JONES MD Jan 09, 2021 10:37
[2021-01-09 14:00] VITALS: BP 159/62
[2021-01-09 15:03] LABS: HEMATOCRIT 37.5 % (36.0-47.0); HEMOGLOBIN 11.3 g/dl (12.0-15.5)
[2021-01-09] MEDS ORDERED: WARFARIN SOD 5MG TAB PO ONE (17:00)
[2021-01-09] MEDS: ENOXAPARIN 80MG/0.8ML SYRINGE (J1650 PER 10MG) SC SCH (17:52)
[2021-01-09] MEDS: SIMVASTATIN 40 MG TAB PO SCH (20:28)
[2021-01-09 22:00] VITALS: BP 154/54
[2021-01-10 02:00] VITALS: BP 150/62
[2021-01-10] MEDS: NITROGLYCERIN 2% OINT 1 GM *U/D* PKT TOP SCH ×4 (05:45→17:42)
[2021-01-10 06:00] VITALS: BP 126/52
[2021-01-10 06:16] LABS: HEMATOCRIT 28.9 % (36.0-47.0); MEAN CORPUSCULAR HEMOGLOBIN 29.7 pg (27.0-33.0); MEAN CORPUSCULAR HGB CONC 30.8 g/dl (32.0-36.5); MEAN CORPUSCULAR VOLUME 96.3 fl (80.0-96.0); PLATELET COUNT, AUTOMATED 159 10^3/uL (150-450); WHITE BLOOD COUNT 6.6 10^3/uL (4.0-10.0)
[2021-01-10 06:34] LABS: CALCIUM LEVEL 8.2 MG/DL (8.8-10.2); CREATININE FOR GFR 2.69 MG/DL (0.55-1.30); GLOMERULAR FILTRATION RATE 18.4 (>39); POTASSIUM SERUM 4.6 MEQ/L (3.5-5.1)
[2021-01-10 06:35] LABS: HEMOGLOBIN 8.9 g/dl (12.0-15.5)
[2021-01-10] MEDS: NovoLOG MIX 70/30 PER UNIT SC SCH ×4 (07:30→17:30)
[2021-01-10 08:12] LABS: INR 1.44; PROTHROMBIN TIME 17.9 SECONDS (12.5-14.3)
[2021-01-10] MEDS: FERROUS SULFATE 325MG TAB PO SCH (08:31)
[2021-01-10] MEDS: CALCIUM ACETATE 667MG GELCAP PO SCH ×3 (08:31→20:38)
[2021-01-10] MEDS: CYANOCOBALAMIN 500 MCG TAB PO SCH (08:31)
[2021-01-10] MEDS: SUCRALFATE 1 GM TAB PO SCH ×4 (08:32→20:38)
[2021-01-10] MEDS: SENOKOT S TAB PO SCH ×2 (08:33→20:39)
[2021-01-10] MEDS: FEBUXOSTAT 40 MG TABLET (ULORIC) PO SCH (08:33)
[2021-01-10] MEDS: CARVedilol 6.25 MG TAB PO SCH ×2 (08:33→20:38)
[2021-01-10] MEDS: MIRALAX *UNIT DOSE* 17GM PACKET PO SCH ×2 (08:33→20:39)
[2021-01-10] MEDS: PANTOPRAZOLE 40MG TAB (PROTONIX) PO SCH ×2 (08:34→20:38)
[2021-01-10] MEDS: LEVEMIR (INSULIN DETEMIR) 1 UNITS/0.01ML SC SCH (08:34)
[2021-01-10 10:00] VITALS: BP 138/52
[2021-01-10] MEDS: LETROZOLE 2.5 MG TAB PO SCH (10:13)
--- NOTE | 2021-01-10 10:59 | IPNPDOC ---
Date Seen The patient was seen on 01/10/21. Progress Note Subjective: Despite a drop of hemoglobin this morning. Patient denies any overt GI bleed without hematemesis, coffee-ground emesis, bright red blood per rectum, melena, or black tarry stools. She also denies any shortness of breath, chest pain, pressure, tightness, lightheadedness, dizziness or palpitations. She ambulates with assistance with her walker and feels that she is almost back to her baseline. INR this morning is 1.44 with warfarin and Lovenox bridged to target INR of 2.5 for mechanical aortic and mechanical mitral valve replacement Objective: Physical exam: Vital signs: See below Generally: Pleasant. No icterus or jaundice Patient is awake, alert, oriented to person, place, and time, answering questions appropriately, no use of respiratory accessory muscles. No cyanosis, no clubbing. Able to speak in full sentences. , No pallor . HEENT No jugular venous distension (JVD), thyromegaly, cervical lymphadenopathy. , Moist mucous membranes. Lungs are diminished but clear to auscultation. No wheezing, rales, or rhonchi. Heart: S1, S2, sinus rhythm. Patient has metallic heart sounds both in the aortic and mitral area due to mechanical aortic and mitral valve. Abdomen: Soft, nontender, nondistended, obese. No rebound, guarding. Positive bowel sounds times four quadrants. Extremities: Positive edema bilaterally. LABORATORY DATA: See below Shoulder x-ray 01/08/2021 acromioclavicular (AC) and glenohumeral joint with mild degenerative changes without visible fracture or bony destructive lesion, subluxation, or soft tissue calcification. Prior surgical clips on the left with sternotomy wires, calcification within aortic arch and no findings in the left upper lung zone. ASSESSMENT AND PLAN: This is a 75-year-old female with history of rheumatic heart disease with mechanical valve replacement, aortic valve replacement, chronic kidney disease stage IV, hypertension, diabetes, hyperlipidemia, pernicious anemia, B12 and vitamin D deficiency, reflux, breast cancer with right breast mastectomy, arteriovenous (AV) fistula right antecubital fossa presented to the emergency room after being found to have abnormal blood test with hemoglobin of 7 from baseline of 10 at her grain mixer's office, patient admitted to black stools at home, she had a scope by Dr. Conklin, found to have a duodenal ulcer. IMPRESSION: 1. Acute blood loss anemia. 2. Acute upper gastrointestinal (GI) bleed. 3. Duodenal ulcer. 4. History of rheumatic heart disease with aortic valve replacement and mitral valve replacement on chronic warfarin. 5. Chronic kidney disease stage IV. 6. Type 2 diabetes. 7. Hypertension. 8. Hyperlipidemia. 9. Obesity. 10. Pernicious anemia with B12, vitamin D deficiency. 11. Reflux. 12. History of breast cancer status post right mastectomy. 13. . Left shoulder osteoarthritis PLAN: Patient is awaiting INR to be therapeutic at 2.50 which point, the Lovenox can be discontinued with switch to Lovenox from heparin due to difficulty with phlebotomy every 6 hourly yesterday. Due to history of breast cancer and right mastectomy phlebotomy could not be performed on the right upper extremity. Due to chronic kidney disease stage IV. Lovenox had been adjusted to once daily at 1 unit per kilogram every 24 hours. Patient is usually on warfarin 2 mg daily which has been increased yesterday, but still with subtherapeutic INR of 1.4 today. She has had no overt recurrent GI bleed despite a drop in hemoglobin, which we will continue to monitor overnight. She is currently continued on PPI and Carafate due to recent finding of duodenal ulcer and hemoglobin of 7 on admission. VS, I&O, 24H, [facility] Vital Signs/I&O Vital Signs Date Time Temp Pulse Resp B/P (MAP) Pulse Ox O2 Delivery O2 Flow Rate FiO2 01/10/21 08:33 68 162/56 01/10/21 06:00 96.9 18 98 Room Air I&O- Last 24 Hours up to 6 AM 01/10/21 06:00 Intake Total 943 ml Output Total 1350 ml Balance -407 ml Laboratory Data 24H LABS Laboratory Tests 2 01/09/21 11:50: Bedside Glucose (Misc Panel) 147H 01/09/21 16:38: Bedside Glucose (Misc Panel) 195H 01/09/21 20:19: Bedside Glucose (Misc Panel) 182H 01/10/21 05:43: Nucleated Red Blood Cells % (auto) 0.0, Anion Gap 7L, Glomerular Filtration Rate 18.4L, Calcium Level 8.2L 01/10/21 07:40: Prothrombin Time 17.9H, Prothromb Time International Ratio 1.44 CBC/BMP Laboratory Tests 01/09/21 14:52 01/10/21 05:43 Microbiology Microbiology 01/09/21 Stool Occult Blood (ADRIÁN) - Final, Complete 01/08/21 Stool Occult Blood (ADRIÁN) - Final, Complete 01/05/21 Stool Occult Blood (ADRIÁN) - Final, Complete ROCKY JONES MD Jan 10, 2021 10:59
[2021-01-10 12:32] LABS: HEMATOCRIT 28.8 % (36.0-47.0); HEMOGLOBIN 8.9 g/dl (12.0-15.5)
[2021-01-10 14:00] VITALS: BP 122/48
[2021-01-10] MEDS ORDERED: WARFARIN SOD 5MG TAB PO ONE (17:00)
[2021-01-10] MEDS: ENOXAPARIN 80MG/0.8ML SYRINGE (J1650 PER 10MG) SC SCH (17:42)
[2021-01-10] MEDS: SIMVASTATIN 40 MG TAB PO SCH (20:39)
[2021-01-10 22:00] VITALS: BP 130/58
[2021-01-11] VITALS (7 sets, daily range): BP systolic 121–138; BP diastolic 50–62
[2021-01-11] MEDS: NITROGLYCERIN 2% OINT 1 GM *U/D* PKT TOP SCH ×4 (00:21→18:00)
[2021-01-11 00:24] LABS: HEMATOCRIT 26.4 % (36.0-47.0)
[2021-01-11 07:00] LABS: HEMATOCRIT 27.8 % (36.0-47.0); HEMOGLOBIN 8.6 g/dl (12.0-15.5); MEAN CORPUSCULAR HEMOGLOBIN 29.9 pg (27.0-33.0); MEAN CORPUSCULAR HGB CONC 30.9 g/dl (32.0-36.5); MEAN CORPUSCULAR VOLUME 96.5 fl (80.0-96.0); PLATELET COUNT, AUTOMATED 154 10^3/uL (150-450); RED BLOOD COUNT 2.88 10^6/uL (4.00-5.40); WHITE BLOOD COUNT 6.1 10^3/uL (4.0-10.0)
[2021-01-11 07:14] LABS: INR 1.95; PROTHROMBIN TIME 22.7 SECONDS (12.5-14.3)
[2021-01-11 07:30] LABS: CALCIUM LEVEL 8.6 MG/DL (8.8-10.2); CREATININE FOR GFR 2.71 MG/DL (0.55-1.30); GLOMERULAR FILTRATION RATE 18.2 (>39); POTASSIUM SERUM 4.5 MEQ/L (3.5-5.1)
[2021-01-11] MEDS: NovoLOG MIX 70/30 PER UNIT SC SCH ×3 (07:30→17:29)
[2021-01-11] MEDS: LEVEMIR (INSULIN DETEMIR) 1 UNITS/0.01ML SC SCH (08:01)
[2021-01-11] MEDS: MIRALAX *UNIT DOSE* 17GM PACKET PO SCH ×2 (08:18→21:00)
[2021-01-11] MEDS: SENOKOT S TAB PO SCH ×2 (08:19→21:00)
[2021-01-11] MEDS: PANTOPRAZOLE 40MG TAB (PROTONIX) PO SCH ×2 (08:26→21:10)
[2021-01-11] MEDS ORDERED: WARF-18 PO ×2 (08:26)
[2021-01-11] MEDS: LETROZOLE 2.5 MG TAB PO SCH (08:26)
[2021-01-11] MEDS: CALCIUM ACETATE 667MG GELCAP PO SCH ×3 (08:26→21:10)
[2021-01-11] MEDS: CYANOCOBALAMIN 500 MCG TAB PO SCH (08:26)
[2021-01-11] MEDS: FERROUS SULFATE 325MG TAB PO SCH (08:26)
[2021-01-11] MEDS: SUCRALFATE 1 GM TAB PO SCH ×4 (08:28→21:10)
[2021-01-11] MEDS: FEBUXOSTAT 40 MG TABLET (ULORIC) PO SCH (08:28)
[2021-01-11] MEDS: CARVedilol 6.25 MG TAB PO SCH ×2 (08:30→21:09)
--- NOTE | 2021-01-11 11:56 | IPNPDOC ---
Text Note Date of Service The patient was seen on 01/11/21. NOTE Subjective: Patient was seen and examined this morning at bedside. Patient tells me she's feeling well and has no complaints there is no acute overnight events. Denies any bleeding denies hematemesis coffee-ground emesis or bright red in her stool or urine. She denies chest pain or shortness of breath. Denies being dizzy or lightheaded. She's been walking with her walker to the bathroom back to her baseline. INR better this morning. Still being bridged with Lovenox. Objective: Constitutional: Awake and alert, in no apparent distress ENT: Sclera are clear. Mucosa is moist. Respiratory: Lungs CTA bilaterally slightly diminished bilaterally. No respiratory distress. Cardiovascular: RRR S1 and S2 are normal, mechanical heart sound murmur Gastrointestinal: Abdomen is soft, non distended, non tender, BS present. Musculoskeletal: Dependent lower extremity edema. Mental Status: A&O x3, normal affect Skin: Warm, dry Assessment/plan: This is a 75-year-old female with history of rheumatic heart disease with mechanical valve replacement, aortic valve replacement, chronic kidney disease stage IV, hypertension, diabetes, hyperlipidemia, pernicious anemia, B12 and vitamin D deficiency, reflux, breast cancer with right breast mastectomy, arteriovenous (AV) fistula right antecubital fossa presented to the emergency room after being found to have abnormal blood test with hemoglobin of 7 from baseline of 10 at her permit review assistant's office, patient admitted to black stools at home, she had a scope by Dr. Conklin, found to have a duodenal ulcer. Patient to be discharged on PPI and follow up with PCP. Patient being bridged with lovenox (renally dosed) prior to discharged due to mechanical heart valve to INR goal or 2.5-3.5 on Coumadin. home dose of Coumadin resumed and patient will follow up with her permit review assistant Dr Mobley. [facility] Marilee APARICIO, I+O Marilee APARICIO, I+O Laboratory Tests 01/10/21 12:04 01/10/21 23:55 01/11/21 06:32 Vital Signs Date Time Temp Pulse Resp B/P (MAP) Pulse Ox O2 Delivery O2 Flow Rate FiO2 01/11/21 10:00 97.7 76 18 121/56 (77) 98 Room Air I&O- Last 24 Hours up to 6 AM 01/11/21 06:00 Intake Total 1230 ml Output Total 1100 ml Balance 130 ml DM SAWYER MD Jan 11, 2021 11:56
[2021-01-11] MEDS ORDERED: WARFARIN SOD 5MG TAB PO SCH (17:00)
[2021-01-11] MEDS: ENOXAPARIN 80MG/0.8ML SYRINGE (J1650 PER 10MG) SC SCH (17:37)
[2021-01-11] MEDS: SIMVASTATIN 40 MG TAB PO SCH (21:10)
[2021-01-11] MEDS: ACETAMINOPHEN TAB 650MG DOSE (2X325MG) PO PRN (21:12)
[2021-01-12 02:00] VITALS: BP 120/58
[2021-01-12 06:00] VITALS: BP 136/58
[2021-01-12] MEDS: NITROGLYCERIN 2% OINT 1 GM *U/D* PKT TOP SCH ×2 (06:00)
[2021-01-12 06:33] LABS: HEMATOCRIT 26.8 % (36.0-47.0); HEMOGLOBIN 8.2 g/dl (12.0-15.5); MEAN CORPUSCULAR HEMOGLOBIN 29.7 pg (27.0-33.0); MEAN CORPUSCULAR HGB CONC 30.6 g/dl (32.0-36.5); MEAN CORPUSCULAR VOLUME 97.1 fl (80.0-96.0); PLATELET COUNT, AUTOMATED 170 10^3/uL (150-450); RED BLOOD COUNT 2.76 10^6/uL (4.00-5.40); WHITE BLOOD COUNT 6.3 10^3/uL (4.0-10.0)
[2021-01-12 06:48] LABS: INR 3.24; PROTHROMBIN TIME 33.8 SECONDS (12.5-14.3)
[2021-01-12] MEDS: NovoLOG MIX 70/30 PER UNIT SC SCH (07:30)
[2021-01-12] MEDS: CALCIUM ACETATE 667MG GELCAP PO SCH (08:04)
[2021-01-12] MEDS: PANTOPRAZOLE 40MG TAB (PROTONIX) PO SCH (08:04)
[2021-01-12] MEDS: LETROZOLE 2.5 MG TAB PO SCH (08:04)
[2021-01-12] MEDS: FEBUXOSTAT 40 MG TABLET (ULORIC) PO SCH (08:04)
[2021-01-12] MEDS: SUCRALFATE 1 GM TAB PO SCH (08:05)
[2021-01-12] MEDS: FERROUS SULFATE 325MG TAB PO SCH (08:05)
[2021-01-12] MEDS: CYANOCOBALAMIN 500 MCG TAB PO SCH (08:05)
[2021-01-12 08:06] VITALS: BP 162/52
[2021-01-12] MEDS: CARVedilol 6.25 MG TAB PO SCH (08:06)
[2021-01-12] MEDS: SENOKOT S TAB PO SCH (08:06)
[2021-01-12] MEDS: MIRALAX *UNIT DOSE* 17GM PACKET PO SCH (08:06)
[2021-01-12] MEDS: LEVEMIR (INSULIN DETEMIR) 1 UNITS/0.01ML SC SCH (08:06)
--- NOTE | 2021-01-12 09:40 | DS.PDOC ---
Discharge Summary General Date of Admission Jan 04, 2021 at 17:50 Date of Discharge 01/12/21 Discharge Summary PROCEDURES PERFORMED DURING STAY: EGD ADMITTING/DISCHARGE DIAGNOSES: 1. Anemia with melanotic stools from upper GI bleed found to have a duodenal ulcer COMPLICATIONS/CHIEF COMPLAINT: Anemia. HISTORY OF PRESENT ILLNESS: From admitting H&P: This is a 75-year-old female with a history significant for breast cancer, status post mastectomy, radiation, chemotherapy, valve replacement on chronic warfarin, chronic kidney disease stage 4, baseline creatinine 2 to 2.3, presents to the emergency room after routine blood testing for chronic warfarin and CBC, was found to be anemic with hemoglobin of 7. The patient denies any bright red blood per rectum, melena, black tarry stools. She denies any chest pain, pressure, tightness, shortness of breath, palpitation, lightheadedness or dizziness and has been in her usual state of health. The patient says that she gets B12 injections and last colon oscopy was unremarkable. The patient has not had any prior history of the esophagitis, gastritis and denies any coffee-ground emesis or hematemesis, no prior history of hemorrhoids or lower GI bleed. The patient was sent to the emergency room for further evaluation, was instructed to not to discontinue her warfarin due to a history of mechanical aortic and mitral valve replacements. HOSPITAL COURSE: This is a 75-year-old female with history of rheumatic heart disease with mechanical valve replacement, aortic valve replacement, chronic kidney disease stage IV, hypertension, diabetes, hyperlipidemia, pernicious anemia, B12 and vitamin D deficiency, reflux, breast cancer with right breast mastectomy, arteriovenous (AV) fistula right antecubital fossa presented to the emergency room after being found to have abnormal blood test with hemoglobin of 7 from baseline of 10 at her credit or loans officer's office, patient admitted to black stools at home, she had a scope by Dr. Conklin, found to have a duodenal ulcer. Patient to be discharged on PPI and follow up with PCP. Patient was bridged prior to discharged due to mechanical heart valve to INR goal or 2.5-3.5 on Coumadin. INR 3.24 at time of discharge. Home dose of Coumadin resumed and patient will follow up with her credit or loans officer Dr Mobley and PCP for INR checks. DISCHARGE MEDICATIONS: Please see below. ALLERGIES: Please see below. PHYSICAL EXAMINATION ON DISCHARGE: VITAL SIGNS: Please see below. Constitutional: Awake and alert, in no apparent distress ENT: Sclera are clear. Mucosa is moist. Respiratory: Lungs CTA bilaterally slightly diminished bilaterally. No respiratory distress. Cardiovascular: RRR S1 and S2 are normal, mechanical heart sound murmur Gastrointestinal: Abdomen is soft, non distended, non tender, BS present. Musculoskeletal: Dependent lower extremity edema. Mental Status: A&O x3, normal affect Skin: Warm, dry LABORATORY DATA: Please see below. IMAGING: see chart PROGNOSIS: fair ACTIVITY: [As tolerated]. DIET: Consistent carbohydrate DISPOSITION: Home DISCHARGE INSTRUCTIONS: Please follow up with your primary care physician within 1 week from discharge. If you do not have one, please follow up with us to schedule an appointment. Please keep all of your follow up appointments. Please call central to book your appointments with hospital specialists. Please take all your medications as prescribed. Please call/come to Clinic or go to the Emergency Department if - Temp >101, intractable Nausea/Vomiting, Diarrhea, Mouth sores, Headaches, Altered mental status, Seizures, sudden onset of swelling, bleeding, shortness of breath or chest pain. ITEMS TO FOLLOWUP ON ON OUTPATIENT: Follow-up with primary care physician within the next 5 days for INR check and posthospital discharge follow-up Follow-up with credit or loans officer Dr. Mobley DISCHARGE CONDITION: [Stable]. TIME SPENT ON DISCHARGE: 40 minutes. Vital Signs/I&Os Vital Signs Date Time Temp Pulse Resp B/P (MAP) Pulse Ox O2 Delivery O2 Flow Rate FiO2 01/12/21 08:06 65 162/52 01/12/21 06:00 97.5 18 96 Room Air I&O- Last 24 Hours up to 6 AM 01/12/21 06:00 Intake Total 1440 ml Output Total 900 ml Balance 540 ml Laboratory Data Labs 24H Laboratory Tests 2 01/11/21 11:51: Bedside Glucose (Misc Panel) 245H 01/11/21 17:11: Bedside Glucose (Misc Panel) 146H 01/11/21 20:54: Bedside Glucose (Misc Panel) 154H 01/12/21 06:08: Nucleated Red Blood Cells % (auto) 0.0, Prothrombin Time 33.8H, Prothromb Time International Ratio 3.24 CBC/BMP Laboratory Tests 01/12/21 06:08 FSBS Laboratory Tests Test 01/11/21 11:51 01/11/21 17:11 01/11/21 20:54 Range/Units Bedside Glucose (Misc Panel) 245 146 154 83-110 MG/DL Microbiology Microbiology 01/09/21 Stool Occult Blood (ADRIÁN) - Final, Complete 01/08/21 Stool Occult Blood (ADRIÁN) - Final, Complete 01/05/21 Stool Occult Blood (ADRIÁN) - Final, Complete Discharge Medications Scheduled Calcium Acetate (Calcium Acetate) 667 Mg Cap, 667 MG PO TID, (Reported) Carvedilol (Carvedilol) 6.25 Mg Tab, 6.25 MG PO BID, (Reported) Cholecalciferol (Vitamin D3) (Vitamin D3) 125 Mcg Tablet, 125 MCG PO QWEEK, (Reported) Cyanocobalamin (Vitamin B-12) (Vitamin B-12) 500 Mcg Tab, 500 MCG PO DAILY, (Reported) Dicyclomine HCl (Dicyclomine HCl) 20 Mg Tab, 20 MG PO ACHS, (Reported) Epoetin Sha (Procrit) 20,000 Unit/Ml Inj, 20,000 UNITS SC Q2WK, (Reported) Epoetin Sha (Epogen) 10,000 Unit/1 Ml Vial, 10,000 UNIT SC Q2WK, (Reported) Febuxostat (Uloric) 80 Mg Tab, 80 MG PO DAILY, (Reported) COKER'S SAYS DOSE IS 80MG DAILY PT HOME MED LIST SAYS 40MG DAILY Ferrous Sulfate (Ferrous Sulfate) 325 Mg Tablet.dr, 325 MG PO DAILY, (Reported) Hydralazine HCl (Hydralazine HCl) 10 Mg Tab, 20 MG PO BID, (Reported) Insulin Aspart Protamine/Aspar (Novolog Mix 70-30 Vial) 1 Units/0.01 Ml Susp, 8 UNITS SC AC, (Reported) ADDITIONAL UNITS ADDED PER SLIDING SCALE Insulin Detemir (Levemir) 1 Units/0.01 Ml Susp, 30 UNITS SC DAILY, (Reported) Letrozole (Letrozole) 2.5 Mg Tablet, 2.5 MG PO DAILY Simvastatin (Zocor) 40 Mg Tab, 40 MG PO QHS, (Reported) Torsemide (Torsemide) 20 Mg Tab, 50 MG PO BID, (Reported) MORNING AND NOON Warfarin Sodium (Warfarin Sodium) 2.5 Mg Tablet, 2.5 MG PO 6XWK, (Reported) PM: SUN, MON, WED, TH, FRI Warfarin Sodium (Warfarin Sodium) 2.5 Mg Tablet, 5 MG PO 1XWK, (Reported) PM: Scheduled PRN Acetaminophen (Acetaminophen) 325 Mg Tab, 650 MG PO Q4H PRN for PAIN, (Reported) Docusate Sodium (Docusate Sodium) 100 Mg Capsule, 100 MG PO BID PRN for CONSTIPATION, (Reported) pt states not sure if taking this med currently, couldn't confirm/deny Allergies Coded Allergies: amlodipine (Verified Adverse Reaction, Mild, DIARRHEA, 03/07/19) DM SAWYER MD Jan 12, 2021 09:40
[2021-01-12] MEDS ORDERED: PANT40TA29 PO (09:41)
[2021-01-12] MEDS ORDERED: SUCR1TA PO (09:41)
[2021-01-12] MEDS ORDERED: WARFARIN SOD 2.5MG TAB PO SCH (17:00)
== END 2021-01-12 11:24 | disposition home or self-care (01) | DRG 811 ==
LOC: M ED 14:58 → M ED INP 17:50 → M PCU 01-05 02:50 → M MSPAV 01-05 11:30
PROVIDERS: ADMIT General Practice; ATTEND Family Medicine
PROC: 30233N1 Transfusion of Nonautologous Red Blood Cells into Peripheral Vein, Percutaneous Approach (ICD-10-PCS; 2021-01-04)
PROC: 0DJ08ZZ Inspection of Upper Intestinal Tract, Via Natural or Artificial Opening Endoscopic (ICD-10-PCS; principal; 2021-01-06 16:30)
DX: D62 Acute posthemorrhagic anemia (principal); K26.4 Chronic or unspecified duodenal ulcer with hemorrhage; N18.4 Chronic kidney disease, stage 4 (severe); I16.0 Hypertensive urgency; E11.22 Type 2 diabetes mellitus with diabetic chronic kidney disease; Z85.3 Personal history of malignant neoplasm of breast; Z95.2 Presence of prosthetic heart valve; E78.5 Hyperlipidemia, unspecified; E53.8 Deficiency of other specified B group vitamins; E55.9 Vitamin D deficiency, unspecified; K21.9 Gastro-esophageal reflux disease without esophagitis; Z79.4 Long term (current) use of insulin; Z79.899 Other long term (current) drug therapy; Z88.8 Allergy status to other drugs, medicaments and biological substances; I10 Essential (primary) hypertension; E66.9 Obesity, unspecified

== ENCOUNTER → 2021-01-19 | Outpatient (REF) | payer MEDICARE ==
[~2021-01-19] MED LIST changes: +EPOG1000 SC; +PANT40TA29 PO; +SUCR1TA PO; +VITA500038 PO
[2021-01-19 16:33] LABS: MEAN CORPUSCULAR HGB CONC 31.9 g/dl (32.0-36.5); MEAN CORPUSCULAR VOLUME 94.2 fl (80.0-96.0); PLATELET COUNT, AUTOMATED 343 10^3/uL (150-450); RED BLOOD COUNT 2.23 10^6/uL (4.00-5.40); WHITE BLOOD COUNT 9.2 10^3/uL (4.0-10.0)
[2021-01-19 16:39] LABS: HEMOGLOBIN 6.7 g/dl (12.0-15.5)
== END ==
LOC: M SFHCADAM 15:02
PROVIDERS: ATTEND Physician Assistant
DX: K26.9 Duodenal ulcer, unspecified as acute or chronic, without hemorrhage or perforation (principal); D50.0 Iron deficiency anemia secondary to blood loss (chronic)

== ENCOUNTER → 2021-02-25 | Outpatient (REF) | payer MEDICARE ==
[2021-02-25 18:54] LABS: PERCENT SATURATION 23.9 % (13.2-45.0)
== END ==
LOC: M LAB REF 16:54
PROVIDERS: ATTEND Nurse Practitioner Family
DX: D50.0 Iron deficiency anemia secondary to blood loss (chronic) (principal)

== ENCOUNTER → 2021-03-23 | Outpatient (CLI) | payer MEDICARE ==
[~2021-03-23] MED LIST changes: +AMIL5TAB4 PO; +ATOR1TAB19 PO; +COVI100V IM; +D31000TA2 PO; +HUMA100I3 SC; +MAGN400T2 PO; +SLOW160T12 PO
--- NOTE | 2021-03-23 13:39 | DEXAMM ---
INDICATION: OSTEOPENIA/BREAST CA. COMPARISON: Multiple prior DEXA studies the most recent which is from March 10, 2019 and the most remote is September 07, 2000.. TECHNIQUE: Bone density was measured using dual-energy x-ray absorptionmetry (DEXA). FINDINGS: AP SPINE L1-L4 BMD 1.216 g/cm2 Young Adult T-Score 0.2 Age Matched Z-Score 1.9. LT FEMUR, TOTAL BMD 0.860 g/cm2 Young Adult T-Score -1.2 Age Matched Z-Score 0.6. LT NECK BMD 0.695 g/cm2 Young Adult T-Score -2.5 Age Matched Z-Score -0.5. RT FEMUR, TOTAL BMD 0.869 g/cm2 Young Adult T-Score -1.1 Age Matched Z-Score 0.6. RT NECK BMD 0.734 g/cm2 Young Adult T-Score -2.2 Age Matched Z-Score -0.3. IMPRESSION: There is normal bone density of the spine. There is low bone density of the left hip. There is low bone density of the right hip. The density of the spine has decreased 7.4% since the initial exam on September 07, 2000. The density of the spine increased 4.2% since most recent exam on March 10, 2019. The density of the left hip has decreased 25.5% since initial exam on September 07, 2000. The density of the left hip has decreased 3.4% since most recent exam on March 10, 2019. The density of the right hip has decreased 25.3% since the initial exam on September 07, 2000. The density of the right hip has increased 0.1% since the most recent exam on March 08, 2029. FOLLOW-UP: Recommendation for the next bone density exam: 2 years. <Electronically signed by Jai Hoffmann > 03/23/21 [id number]
== END ==
LOC: M WHC 12:56
PROVIDERS: ATTEND Internal Medicine Medical Oncology
DX: C50.919 Malignant neoplasm of unspecified site of unspecified female breast (principal); M85.89 Other specified disorders of bone density and structure, multiple sites

== ENCOUNTER → 2021-04-27 | Outpatient (REF) | payer MEDICARE | LOC: M LAB REF 17:33 | PROVIDERS: ATTEND Nurse Practitioner Family | DX: D50.9 Iron deficiency anemia, unspecified (principal) ==

== ENCOUNTER 2021-04-28 09:38 | Outpatient (CLI) | payer MEDICARE ==
[2021-04-28] VITALS (8 sets, daily range): BP systolic 147–167; BP diastolic 64–79
[~2021-04-28] VITALS: Ht 154.9 cm; Wt 64.1 kg
[~2021-04-28 09:38] MED LIST changes: +FUROSEMIDE 40MG/4ML VIAL (J1940) IV ONE
== END 2021-04-28 14:20 | disposition home or self-care (01) ==
LOC: M INFU 09:38
PROVIDERS: ATTEND Internal Medicine Nephrology
DX: N18.9 Chronic kidney disease, unspecified (principal); D63.1 Anemia in chronic kidney disease; D50.9 Iron deficiency anemia, unspecified
CPT/HCPCS: 36430; 96374; J1940; P9016

== ENCOUNTER 2021-05-12 15:26 | Inpatient (IN) | payer MEDICARE ==
[~2021-05-12] VITALS: Ht 154.9 cm; Wt 70.8 kg
[2021-05-12] VITALS (7 sets, daily range): BP systolic 118–212; BP diastolic 52–83
[~2021-05-12 15:26] MED LIST changes: -FUROSEMIDE 40MG/4ML VIAL (J1940) IV ONE
[2021-05-12] MEDS ORDERED: NS 1,000 ML IV ONE (17:20)
[2021-05-12 17:36] LABS: BASO % 0.5 % (0.0-1.0); EOS # 0.2 10^3/uL (0.0-0.5); EOS % 3.1 % (0.0-3.0); LYMPH # 0.8 10^3/uL (1.5-5.0); LYMPH % 10.3 % (24.0-44.0); MEAN CORPUSCULAR HEMOGLOBIN 29.9 pg (27.0-33.0); MEAN CORPUSCULAR HGB CONC 30.6 g/dl (32.0-36.5); MEAN CORPUSCULAR VOLUME 97.8 fl (80.0-96.0); MONO # 0.7 10^3/uL (0.0-0.8); MONO % 9.2 % (2.0-8.0); NEUTROPHILS # 5.6 10^3/uL (1.5-8.5); NEUTROPHILS % 76.4 % (36.0-66.0); PLATELET COUNT, AUTOMATED 220 10^3/uL (150-450); RED BLOOD COUNT 1.84 10^6/uL (4.00-5.40); WHITE BLOOD COUNT 7.3 10^3/uL (4.0-10.0)
[2021-05-12 17:41] LABS: HEMOGLOBIN 5.5 g/dl (12.0-15.5)
[2021-05-12 17:51] LABS: INR 1.92; PARTIAL THROMBOPLASTIN TIME 34.6 SECONDS (24.2-38.5); PROTHROMBIN TIME 22.4 SECONDS (12.5-14.3)
--- NOTE | 2021-05-12 18:05 | REP ---
INDICATION: Abdominal Pain. COMPARISON: None. TECHNIQUE: PA and lateral FINDINGS: The cardiomediastinal silhouette lung barajas are unchanged. No acute patchy parenchymal opacities or pleural effusions have developed. Note is again made of previous median sternotomy. The heart is not enlarged. The osseous structures are unchanged. IMPRESSION: There is no acute cardiopulmonary disease. <Electronically signed by Lewis Martinez > 05/12/21 [id number]
[2021-05-12 18:22] LABS: ALBUMIN 3.3 GM/DL (3.2-5.2); ALT/SGPT 16 U/L (12-78); BILIRUBIN,DIRECT < 0.1 MG/DL (0.0-0.2); BILIRUBIN,TOTAL 0.2 MG/DL (0.2-1.0); CK-MB VALUE MASS 1.5 NG/ML (<3.6); CPK CREATINE PHOSPHOKINASE 94 U/L (26-192); TOTAL PROTEIN 6.2 GM/DL (6.4-8.2); TROPONIN I < 0.02 NG/ML (< 0.10)
[2021-05-12] MEDS ORDERED: DEXTROSE 50% 50 ML SYRINGE IV PRN (18:30)
[2021-05-12] MEDS ORDERED: ACETAMINOPHEN TAB 650MG DOSE (2X325MG) PO PRN (18:30)
[2021-05-12] MEDS ORDERED: GLUCOSE 4GM CHEW TABLET PO PRN (18:30)
[2021-05-12] MEDS ORDERED: GLUCAGON INJ 1MG VIAL SC PRN (18:30)
--- NOTE | 2021-05-12 18:45 | HPEPDOC ---
General Date of Admission 05/12/21 Date of Service: May 12, 2021 Chief Complaint The patient is a 75-year-old female admitted with a reason for visit of Low Hemoglobin. Source: Patient History of Present Illness Patient is 75 years old female with past medical history of rheumatic heart disease with mechanical mitral valve replacement, aortic valve replacement, chronic kidney disease stage IV, hypertension, diabetes, hyperlipidemia, pernicious anemia, B12 and vitamin D deficiency, reflux, breast cancer with right breast mastectomy, arteriovenous (AV) fistula right antecubital fossa presented hospital with generalized weakness and shortness of breath. Today patient received CBC result before visiting oncology office. Her hemoglobin was 5.7. Patient stated that she noticed black stool for a few weeks and became profoundly weak for past week. Of note, patient was recently hospitalized from 01/04/21 01/12/21 for profound anemia, patient was found to have duodenal ulcer on EGD. Bone marrow aspiration and biopsy 04/12/2021 showed low normocellular bone ma rrow for age with increased storage iron. In ER patient was found to have hemoglobin of 5.5, stool positive for blood, INR 1.9. Of note patient takes Coumadin daily. Home Medications Scheduled Atorvastatin Calcium (Atorvastatin Calcium) 10 Mg Tablet, 1 TAB PO QHS, (Reported) Calcium Acetate (Calcium Acetate) 667 Mg Cap, 667 MG PO TID, (Reported) Carvedilol (Carvedilol) 6.25 Mg Tab, 6.25 MG PO BID, (Reported) Cholecalciferol (Vitamin D3) (Vitamin D3) 1,000 Unit Tablet, 5,000 UNITS PO DAILY, (Reported) Cyanocobalamin (Vitamin B-12) (Vitamin B-12) 500 Mcg Tab, 500 MCG PO DAILY, (Reported) Dicyclomine HCl (Dicyclomine HCl) 20 Mg Tab, 20 MG PO ACHS, (Reported) Epoetin Sha (Procrit) 20,000 Unit/Ml Inj, 20,000 UNITS SC Q2WK, (Reported) Febuxostat (Uloric) 80 Mg Tab, 80 MG PO DAILY, (Reported) JOHN PAUL'S SAYS DOSE IS 80MG DAILY PT HOME MED LIST SAYS 40MG DAILY Ferrous Sulfate, Dried (Slow Release Iron) 160 Mg Tablet.er, 65 MG PO DAILY, (Reported) Hydralazine HCl (Hydralazine HCl) 10 Mg Tab, 2 TAB PO BID, (Reported) Insulin Detemir (Levemir) 1 Units/0.01 Ml Susp, 8 UNITS SC DAILY, (Reported) Insulin Lispro (Humalog) 100 Unit/1 Ml Cartridge, 100 UNITS SC AC, (Reported) Letrozole (Letrozole) 2.5 Mg Tablet, 2.5 MG PO DAILY Magnesium Oxide (Magnesium Oxide) 400 Mg Tablet, 1 TAB PO BID for constipation, (Reported) Pantoprazole Sodium (Pantoprazole Sodium) 40 Mg Tablet.dr, 40 MG PO BID Simvastatin (Zocor) 40 Mg Tab, 40 MG PO QHS, (Reported) Sucralfate (Sucralfate) 1 Gm Tablet, 1 GM PO ACHS Torsemide (Torsemide) 20 Mg Tab, 1 TAB PO BID, (Reported) MORNING AND NOON Warfarin Sodium (Warfarin Sodium) 2.5 Mg Tablet, 2.5 MG PO 6XWK, (Reported) PM: SUN, MON, WED, THURS, FRI Warfarin Sodium (Warfarin Sodium) 2.5 Mg Tablet, 5 MG PO 1XWK, (Reported) PM: Scheduled PRN Acetaminophen (Acetaminophen) 325 Mg Tab, 650 MG PO Q4H PRN for PAIN, (Reported) Miscellaneous Medications Covid-19 Vacc,Mrna(Moderna)/Pf (Moderna Covid19 Vacc(Unapprov)) 100 Mcg/0.5 Ml Vial, 100 MCG IM, (Reported) Allergies Coded Allergies: amlodipine (Verified Adverse Reaction, Mild, DIARRHEA, 03/07/19) Past Medical History Medical History 1. Aortic, mitral valve replacement. 2. Rheumatic heart disease. 3. Diabetes. 4. Hypertension. 5. Hyperlipidemia. 6. Chronic kidney disease stage 4. 7. Pernicious anemia. 8. B12 deficiency. 9. Vitamin D deficiency. 10. Gastroesophageal reflux. Left breast cancer 2010. Right breast cancer 2019. Right breast cancer treated with partial mastectomy 2019, neoadjuvant endocrine therapy, specifically letrozole followed by post operative letrozole. Surgical History 1. Mastectomy, right breast. 2. Tubal ligation. 3. Coronary catheterization. 4. Heart valve replacement. 5. Mitral and aortic valve. 6. AV fistula, right antecubital fossa, 2018. Family History Father , age 80, CAD, DC, diabetes and heart disease. Mother , age 80, natural causes. Two sons, one daughter. Social History * Smoker: Denies Alcohol: Denies Drugs: denies A-FIB/CHADSVASC A-FIB History Current/History of A-Fib/PAF?: No Current PO Anticoag Therapy: No Review of Systems Constitutional: Reports: Weakness, Fatigue; Denies: Chills, Fever Eyes: Denies: Pain ENT: Denies: Head Aches Skin: Denies: Rash, Lesions Pulmonary: Reports: Dyspnea; Denies: Cough Cardiovascular: Denies: Chest Pain, Palpitations Gastrointestinal: Denies: Nausea Genitourinary: Denies: Dysuria Endocrine: Denies: Polydipsia, Polyphagia Musculoskeletal: Denies: Neck Pain Neurological: Denies: Weakness Psych: Reports: Mood Normal Physical Examination General Exam: Positive: Alert, Cooperative Eye Exam: Negative: PERRLA ENT Exam: Negative: Atraumatic Neck Exam: Positive: Supple; Negative: JVD Chest Exam: Positive: Clear to auscultation Heart Exam: Positive: Rate Normal, Murmurs (diastolic murmur) Telemetry: Positive: No significant arrhythmia Abdomen Exam: Positive: Normal bowel sounds Extremity Exam: Negative: Clubbing Skin Exam: Positive: Nl turgor and temperature Neuro Exam: Positive: Cranial Nerves 3-12 NL Psych Exam: Positive: Mental status NL Vital Signs Vital Signs Date Time Temp Pulse Resp B/P (MAP) Pulse Ox O2 Delivery O2 Flow Rate FiO2 05/12/21 18:05 05/12/21 15:26 96.9 76 18 96 Room Air Laboratory Data Labs 24H Laboratory Tests 2 05/12/21 17:19: Immature Granulocyte % (Auto) 0.5, Neutrophils (%) (Auto) 76.4H, Lymphocytes (%) (Auto) 10.3L, Monocytes (%) (Auto) 9.2H, Eosinophils (%) (Auto) 3.1H, Basophils (%) (Auto) 0.5, Neutrophils # (Auto) 5.6, Lymphocytes # (Auto) 0.8L, Monocytes # (Auto) 0.7, Eosinophils # (Auto) 0.2, Basophils # (Auto) 0.0, Nucleated Red Blood Cells % (auto) 0.0, Prothrombin Time 22.4H, Prothromb Time International Ratio 1.92, Activated Partial Thromboplast Time 34.6, Total Bilirubin 0.2, Direct Bilirubin < 0.1, Aspartate Amino Transf (AST/SGOT) 28, Alanine Aminotran sferase (ALT/SGPT) 16, Alkaline Phosphatase 86, Total Creatine Kinase 94, Creatine Kinase MB 1.5, Creatine Kinase MB Relative Index 1.60, Troponin I < 0.02, Total Protein 6.2L, Albumin 3.3, Albumin/Globulin Ratio 1.1L 05/12/21 17:42: CBC/BMP Laboratory Tests 05/12/21 17:19 Assessment/Plan Patient is 75 years old female with past medical history of rheumatic heart disease with mechanical mitral valve replacement, aortic valve replacement, chronic kidney disease stage IV, hypertension, diabetes, hyperlipidemia, pernicious anemia, B12 and vitamin D deficiency, reflux, breast cancer with right breast mastectomy, arteriovenous (AV) fistula right antecubital fossa presented hospital with generalized weakness and shortness of breath. Today patient received CBC result before visiting oncology office. Her hemoglobin was 5.7. Patient stated that she noticed black stool for a few weeks and became profoundly weak for past week. Of note, patient was recently hospitalized from 01/04/21 01/12/21 for profound anemia, patient was found to have duodenal ulcer on EGD. In ER patient was found to have hemoglobin of 5.5, INR 1.9. Of note patient takes Coumadin daily. Problems (1) Acute blood loss anemia Status: Acute Problem Text: Most likely secondary to acute GI bleed given history of duodenal ulcer in December 2020. Acute blood loss anemia superimposed with anemia of c hronic diseases due to multiple comorbidities including chronic kidney diseases, malignancy Clear liquid diet for now PPI IV Carafate Ordered 2 units of blood H&H every 6 hours appreciate/agree with surgical consult. (2) GI bleed Status: Acute Problem Text: See above (3) Acute on chronic renal failure Status: Acute Problem Text: Most likely secondary to intravascular depletion secondary to anemia Blood transfusion Continue to monitor (4) Type 2 diabetes mellitus Status: Chronic Problem Text: Insulin sliding scale Detemir twice a day (5) Hx of mitral valve replacement Status: Chronic Problem Text: Warfarin on hold due to ongoing bleed Will continue to monitor INR/PT Plan / VTE VTE Prophylaxis Ordered?: No VTE Exclusion Pharmacological: Active Bleeding HERVE GARCIA DO May 12, 2021 18:45
[2021-05-12 18:50] LABS: RSV AMPLIFICATION NEGATIVE (NEGATIVE)
[2021-05-12] MEDS ORDERED: [UNRECOGNIZED DRUG - CODE] SQ (19:08)
[2021-05-12] MEDS ORDERED: SUCR1ORA2 PO (19:08)
[2021-05-12] MEDS ORDERED: PANT-23 PO (19:08)
[2021-05-12 19:28] LABS: BLOOD UREA NITROGEN 97 MG/DL (7-18); CALCIUM LEVEL 8.8 MG/DL (8.8-10.2); CARBON DIOXIDE LEVEL 31 MEQ/L (21-32); CHLORIDE LEVEL 101 MEQ/L (98-107); GLOMERULAR FILTRATION RATE 15.6 (>39); GLUCOSE, FASTING 162 MG/DL (70-100); POTASSIUM SERUM 4.2 MEQ/L (3.5-5.1); SODIUM LEVEL 137 MEQ/L (136-145)
[2021-05-12] MEDS: HumaLOG INSULIN (NovoLOG) PER UNIT SC SCH (22:05)
[2021-05-12] MEDS: PANTOPRAZOLE 40MG VIAL (C9113 PER 1) IV SCH (22:13)
[2021-05-12] MEDS: SUCRALFATE SUSP 1GM/10ML UD PO SCH (22:13)
[2021-05-12] MEDS: MAGNESIUM OXIDE 400MG TAB (MAG-OX) PO SCH (22:16)
[2021-05-12] MEDS: ATORVASTATIN 10 MG TAB PO SCH (22:16)
[2021-05-12] MEDS: CARVedilol 6.25 MG TAB PO SCH (22:25)
[2021-05-12] MEDS: hydrALAZINE 20MG/ML 1ML VIAL (J0360 PER 20MG) IV PRN (22:48)
[2021-05-13] VITALS (10 sets, daily range): BP systolic 133–180; BP diastolic 50–77
[2021-05-13 04:44] LABS: HEMATOCRIT 25.4 % (36.0-47.0); MEAN CORPUSCULAR HEMOGLOBIN 28.7 pg (27.0-33.0); MEAN CORPUSCULAR HGB CONC 31.5 g/dl (32.0-36.5); PLATELET COUNT, AUTOMATED 173 10^3/uL (150-450); RED BLOOD COUNT 2.79 10^6/uL (4.00-5.40); WHITE BLOOD COUNT 5.5 10^3/uL (4.0-10.0)
[2021-05-13 05:19] LABS: ALBUMIN 2.6 GM/DL (3.2-5.2); BILIRUBIN,TOTAL 0.4 MG/DL (0.2-1.0); CALCIUM LEVEL 8.5 MG/DL (8.8-10.2); CREATININE FOR GFR 2.73 MG/DL (0.55-1.30); GLOMERULAR FILTRATION RATE 18.1 (>39); MAGNESIUM LEVEL 2.1 MG/DL (1.8-2.4); POTASSIUM SERUM 3.5 MEQ/L (3.5-5.1); TOTAL PROTEIN 5.4 GM/DL (6.4-8.2)
--- NOTE | 2021-05-13 08:15 | CR ---
CONSULTATION DATE: 05/12/2021 HISTORY OF PRESENT ILLNESS: Patient is a 75-year-old who has had a longstanding history of chronic anemia, has been seen by the oncologist for evaluation, has undergone an upper endoscopy here in December, then was evaluated by the retail pharmacy technician in [place] and had both an upper and lower endoscopy. The summation of the original upper endoscopy showed a small ulcer by Dr. Conklin which was not actively bleeding may have been the source of bleeding but undetermined given that it was not actively bleeding and the follow-up upper endoscopy by the retail pharmacy technician in [place] reportedly showed a very tiny ulcer without bleeding and they did not feel this was the source and thus proceeded with a colonoscopy where she states they reportedly found nothing. In any case, she has stayed anemic and has had some progressive anemia since then. She has had black stools, given that she has been on iron it is hard to tell if this from ongoing bleeding or what the etiology is. She presents now with a significantly low hemoglobin for transfusions and further evaluation. She is on anticoagulation. PAST MEDICAL HISTORY: Significant for history of aortic valve/mitral valve replacement, rheumatic heart disease, diabetes mellitus, hypertension, hyperlipidemia, chronic kidney disease, pernicious anemia, B12 deficiency, vitamin D deficiency, gastroesophageal reflux, left breast cancer, right breast cancer, previous mastectomy, neoadjuvant endocrine therapy, history of tubal ligation, coronary catheterization, AV fistula. MEDICATIONS: 1. Atorvastatin. 2. Calcium. 3. Carvedilol. 4. Multivitamins. 5. Dicyclomine. 6. Procrit. 7. Uloric. 8. Iron. 9. Hydralazine. 10.Levemir. 11.Humalog. 12.Letrozole. 13.Magnesium oxide. 14.Pantoprazole. 15.Zocor. 16.Carafate. 17.Torsemide. 18.Coumadin. PHYSICAL EXAMINATION: Physical exam reveals a frail 75-year-old female who looks older than her stated age. HEENT is unremarkable. Lungs are clear anteriorly. Heart is regular with obvious mechanical sounds. Abdomen is soft, nontender and nondistended. IMPRESSION/PLAN: Patient has ongoing chronic anemia with probably some acute ongoing bleeding as well although it is hard to tell given that she has no bright-red blood per rectum. The most likely etiology for this bleeding is probably some small bowel AV malformation just given the fact that the diagnosis has not been as of yet determined. She has been on aggressive treatment for her ulcer disease and would be unlikely to be bleeding from that source. I feel that her most likely beneficial evaluation would be a tag cell scan, possibly an angiogram but I feel that we will probably get a negative tag cell scan and then will need to proceed as an outpatient with a capsule endoscopy. At this point, given the current presentation, and this longstanding issue that has been dealt with by the oncologist, I feel that once we stabilize her, if the tag cell scan is negative tomorrow, then we could progress her diet, have her follow-up as an outpatient with the GI group in [place] to proceed with a capsule endoscopy.
[2021-05-13] MEDS: CARVedilol 6.25 MG TAB PO SCH ×2 (08:37→20:30)
[2021-05-13] MEDS: SUCRALFATE SUSP 1GM/10ML UD PO SCH ×3 (08:37→20:29)
[2021-05-13] MEDS: PANTOPRAZOLE 40MG VIAL (C9113 PER 1) IV SCH ×2 (08:37→20:32)
[2021-05-13] MEDS: MAGNESIUM OXIDE 400MG TAB (MAG-OX) PO SCH ×2 (08:37→20:32)
[2021-05-13] MEDS: VITAMIN D 1,000 INTERNATIONAL UNITS TABLET PO SCH (08:37)
[2021-05-13] MEDS: CYANOCOBALAMIN 500 MCG TAB PO SCH (08:37)
[2021-05-13] MEDS: LEVEMIR (INSULIN DETEMIR) 1 UNITS/0.01ML SC SCH (08:38)
[2021-05-13] MEDS: LETROZOLE 2.5 MG TAB PO SCH (08:39)
[2021-05-13] MEDS: FEBUXOSTAT 40 MG TABLET (ULORIC) PO SCH (08:39)
[2021-05-13] MEDS: HumaLOG INSULIN (NovoLOG) PER UNIT SC SCH ×4 (08:39→20:32)
--- NOTE | 2021-05-13 10:47 | IPNPDOC ---
Text Note Date of Service The patient was seen on 05/13/21. NOTE Subjective: Patient stated that she is doing much better today, less generalized weakness, less shortness of breath Objective: GENERAL APPEARANCE: NAD HEENT: no scleral icterus, no JVD, EOMI CARDIOVASCULAR: S1S2 LUNGS: CTA ABDOMEN: soft & not tender w palpitation MUSCULOSKELETAL: no cyanosis, no swelling INTEGUMENT: no generalized pallor NEUROLOGICAL: cranial nerve function from 2-12 intact intact, follows commands, speech not dysarthric Assessment/Plan Patient is 75 years old female with past medical history of rheumatic heart disease with mechanical mitral valve replacement, aortic valve replacement, chronic kidney disease stage IV, hypertension, diabetes, hyperlipidemia, pernicious anemia, B12 and vitamin D deficiency, reflux, breast cancer with right breast mastectomy, arteriovenous (AV) fistula right antecubital fossa presented hospital with generalized weakness and shortness of breath. Today patient received CBC result before visiting oncology office. Her hemoglobin was 5.7. Patient stated that she noticed black stool for a few weeks and became profoundly weak for past week. Of note, patient was recently hospitalized from 01/04/21 01/12/21 for profound anemia, patient was found to have duodenal ulcer on EGD. In ER patient was found to have hemoglobin of 5.5, INR 1.9. Of note patient takes Coumadin daily. Problems (1) Acute blood loss anemia Most likely secondary to acute GI bleed given history of duodenal ulcer in December 2020. Acute blood loss anemia superimposed with anemia of chronic diseases due to multiple comorbidities including chronic kidney diseases, malignancy Continue clear liquid diet for now PPI IV Carafate Transfused 2 units of blood on 05/13/21. Hemoglobin 8 H&H every 6 hours surgical team consulted patient. Recommended tag cell scan, possibly an angiogram, given the fact that patient recently had EGD and she was on the intensive PPI therapy. Possible side of the bleeding can be small bowels Patient will need capsule endoscopy in the outpatient settings (2) GI bleed See above (3) Acute on chronic renal failure Most likely secondary to intravascular depletion secondary to anemia Blood transfusion Continue to monitor Improved today (4) Type 2 diabetes mellitus Insulin sliding scale Detemir 5 units every morning (5) Hx of mitral valve replacement Warfarin on hold due to possible ongoing bleed Will continue to monitor INR/PT VS,Fishbone, I+O VS, Fishbone, I+O Laboratory Tests 05/12/21 17:19 05/13/21 04:24 Vital Signs Date Time Temp Pulse Resp B/P (MAP) Pulse Ox O2 Delivery O2 Flow Rate FiO2 05/13/21 08:00 97.8 80 18 177/77 (110) 96 Room Air I&O- Last 24 Hours up to 6 AM 05/13/21 06:00 Intake Total 800 ml Output Total 450 ml Balance 350 ml HERVE GARCIA DO May 13, 2021 10:47
[2021-05-13] MEDS: CALCIUM ACETATE 667MG GELCAP PO SCH ×3 (12:06→17:08)
[2021-05-13 12:33] LABS: HEMATOCRIT 25.8 % (36.0-47.0); HEMOGLOBIN 8.3 g/dl (12.0-15.5)
[2021-05-13] MEDS: hydrALAZINE 20MG/ML 1ML VIAL (J0360 PER 20MG) IV PRN (17:08)
[2021-05-13 18:28] LABS: HEMATOCRIT 27.5 % (36.0-47.0); HEMOGLOBIN 8.9 g/dl (12.0-15.5)
[2021-05-13 18:52] LABS: INR 1.38; PROTHROMBIN TIME 17.3 SECONDS (12.5-14.3)
[2021-05-13] MEDS: ATORVASTATIN 10 MG TAB PO SCH (20:29)
[2021-05-14 00:11] LABS: HEMATOCRIT 24.5 % (36.0-47.0); HEMOGLOBIN 7.8 g/dl (12.0-15.5)
[2021-05-14 00:13] VITALS: BP 152/40
[2021-05-14 04:00] VITALS: BP 146/76
[2021-05-14 05:54] LABS: HEMATOCRIT 24.6 % (36.0-47.0); HEMOGLOBIN 7.8 g/dl (12.0-15.5)
[2021-05-14 07:37] VITALS: BP 158/54
[2021-05-14] MEDS: PANTOPRAZOLE 40MG VIAL (C9113 PER 1) IV SCH (08:30)
[2021-05-14] MEDS: FEBUXOSTAT 40 MG TABLET (ULORIC) PO SCH (08:31)
[2021-05-14] MEDS: VITAMIN D 1,000 INTERNATIONAL UNITS TABLET PO SCH (08:31)
[2021-05-14] MEDS: LETROZOLE 2.5 MG TAB PO SCH (08:31)
[2021-05-14] MEDS: HumaLOG INSULIN (NovoLOG) PER UNIT SC SCH ×2 (08:31→12:24)
[2021-05-14] MEDS: LEVEMIR (INSULIN DETEMIR) 1 UNITS/0.01ML SC SCH (08:31)
[2021-05-14] MEDS: CYANOCOBALAMIN 500 MCG TAB PO SCH (08:32)
[2021-05-14] MEDS: SUCRALFATE SUSP 1GM/10ML UD PO SCH ×2 (08:32→16:00)
[2021-05-14] MEDS: MAGNESIUM OXIDE 400MG TAB (MAG-OX) PO SCH (08:32)
[2021-05-14] MEDS: CALCIUM ACETATE 667MG GELCAP PO SCH ×2 (08:32→12:24)
[2021-05-14 08:33] VITALS: BP 158/54
[2021-05-14] MEDS: CARVedilol 6.25 MG TAB PO SCH (08:33)
[2021-05-14 11:49] LABS: HEMATOCRIT 26.3 % (36.0-47.0); HEMOGLOBIN 8.2 g/dl (12.0-15.5)
--- NOTE | 2021-05-14 13:16 | DS.PDOC ---
Discharge Summary General Date of Admission May 12, 2021 at 18:26 Date of Discharge 05/14/21 Discharge Summary PROCEDURES PERFORMED DURING STAY: [None]. ADMITTING DIAGNOSES: Acute blood loss anemia GI bleed Acute on chronic renal failure Type 2 diabetes mellitus Hx of mitral valve replacement DISCHARGE DIAGNOSES: Acute blood loss anemia GI bleed Acute on chronic renal failure Type 2 diabetes mellitus Hx of mitral valve replacement COMPLICATIONS/CHIEF COMPLAINT: Gi Bleed. HISTORY OF PRESENT ILLNESS: Patient is 75 years old female with past medical history of rheumatic heart disease with mechanical mitral valve replacement, aortic valve replacement, chronic kidney disease stage IV, hypertension, diabetes, hyperlipidemia, pernicious anemia, B12 and vitamin D deficiency, reflux, breast cancer with right breast mastectomy, arteriovenous (AV) fistula right antecubital fossa presented hospital with generalized weakness and shortness of breath. Today patient received CBC result before visiting oncology office. Her hemoglobin was 5.7. Patient stated that she noticed black stool for a few weeks and became profoundly weak for past week. Of note, patient was recently hospitalized from 01/04/21 01/12/21 for profound anemia, patient was found to have duodenal ulcer on EGD. In ER patient was found to have hemoglobin of 5.5, INR 1.9. Of note patient takes Coumadin daily. HOSPITAL COURSE: During the hospital stay the following issue addressed (1) Acute blood loss anemia Most likely secondary to acute GI bleed given history of duodenal ulcer in December 2020. Acute blood loss anemia superimposed with anemia of chronic diseases due to multiple comorbidities including chronic kidney diseases, m alignancy Patient tolerates diet PPI IV Carafate Transfused 2 units of blood on 05/13/21. Hemoglobin stable H&H every 6 hours surgical team consulted patient. Recommended capsule endoscopy in the out patient settings (2) GI bleed See above (3) Acute on chronic renal failure Most likely secondary to intravascular depletion secondary to anemia Blood transfusion Improved today (4) Type 2 diabetes mellitus Insulin sliding scale Detemir 5 units every morning (5) Hx of mitral valve replacement Warfarin on hold due to possible ongoing bleed. Patient can restart Coumadin in 2 days DISCHARGE MEDICATIONS: Please see below. ALLERGIES: Please see below. PHYSICAL EXAMINATION ON DISCHARGE: VITAL SIGNS: Please see below. GENERAL APPEARANCE: NAD HEENT: no scleral icterus, no JVD, EOMI CARDIOVASCULAR: S1S2 LUNGS: CTA ABDOMEN: soft & not tender w palpitation MUSCULOSKELETAL: no cyanosis, no swelling INTEGUMENT: no generalized pallor NEUROLOGICAL: cranial nerve function from 2-12 intact intact, follows commands, speech not dysarthric LABORATORY DATA: Please see below. IMAGING: FINDINGS: The cardiomediastinal silhouette lung barajas are unchanged. No acute patchy parenchymal opacities or pleural effusions have developed. Note is again made of previous median sternotomy. The heart is not enlarged. The osseous structures are unchanged. IMPRESSION: There is no acute cardiopulmonary disease. PROGNOSIS: Fair ACTIVITY: [As tolerated]. DIET: Cardiac ITEMS TO FOLLOWUP ON ON OUTPATIENT: follow-up with GI team in [place], follow-up with PCP in 3-5 days DISCHARGE CONDITION: [Stable]. TIME SPENT ON DISCHARGE: 40minutes. Vital Signs/I&Os Vital Signs Date Time Temp Pulse Resp B/P (MAP) Pulse Ox O2 Delivery O2 Flow Rate FiO2 05/14/21 08:33 72 158/54 05/14/21 07:37 97.8 18 98 Room Air I&O- Last 24 Hours up to 6 AM 05/14/21 06:00 Intake Total 680 ml Output Total 1000 ml Balance -320 ml Laboratory Data Labs 24H Laboratory Tests 2 05/13/21 16:48: Bedside Glucose (Misc Panel) 97 05/13/21 18:03: Prothrombin Time 17.3H, Prothromb Time International Ratio 1.38 05/13/21 20:28: Bedside Glucose (Misc Panel) 206H 05/14/21 06:50: Bedside Glucose (Misc Panel) 151H 05/14/21 12:00: Bedside Glucose (Misc Panel) 208H CBC/BMP Laboratory Tests 05/13/21 18:03 05/13/21 23:44 05/14/21 05:44 05/14/21 11:39 FSBS Laboratory Tests Test 05/13/21 16:48 05/13/21 20:28 05/14/21 06:50 05/14/21 12:00 Range/Units Bedside Glucose (Misc Panel) 97 206 151 208 83-110 MG/DL Discharge Medications Scheduled Atorvastatin Calcium (Atorvastatin Calcium) 10 Mg Tablet, 40 MG PO QHS, (Re ported) Calcium Acetate (Calcium Acetate) 667 Mg Cap, 667 MG PO WM, (Reported) Carvedilol (Carvedilol) 6.25 Mg Tab, 6.25 MG PO BID, (Reported) Cholecalciferol (Vitamin D3) (Vitamin D3) 1,000 Unit Tablet, 5,000 UNITS PO DAILY, (Reported) Cyanocobalamin (Vitamin B-12) (Vitamin B-12) 500 Mcg Tab, 500 MCG PO DAILY, (Reported) Dicyclomine HCl (Dicyclomine HCl) 20 Mg Tab, 20 MG PO AC, (Reported) Epoetin Sha (Epogen) 20,000 Unit/1 Ml Vial, 1 DOSE SQ Q2WK, (Reported) 30,000 UNITS EVERY OTHER WEEK - PATIENT STATES SHE HAS NOT HAD IN ABOUT [address] [place] [address] UNITS BUT NEEDED APPROVAL Febuxostat (Uloric) 80 Mg Tab, 80 MG PO DAILY, (Reported) Ferrous Sulfate, Dried (Slow Release Iron) 160 Mg Tablet.er, 65 MG PO DAILY, (Reported) Hydralazine HCl (Hydralazine HCl) 10 Mg Tab, 20 MG PO BID, (Reported) Insulin Detemir (Levemir) 1 Units/0.01 Ml Susp, 5 UNITS SC DAILY, (Reported) Insulin Lispro (Humalog) 100 Unit/1 Ml Cartridge, 1 DOSE SC AC, (Reported) PER SLIDING SCALE Letrozole (Letrozole) 2.5 Mg Tablet, 2.5 MG PO DAILY Magnesium Oxide (Magnesium Oxide) 400 Mg Tablet, 400 MG PO BID, (Reported) Pantoprazole Sodium (Pantoprazole Sodium) 40 Mg Tablet.dr, 40 MG PO BID, (Reported) Sucralfate (Sucralfate) 1 Gm/10 Ml Oral.susp, 1 GM PO ACHS, (Reported) Torsemide (Torsemide) 20 Mg Tab, 20 MG PO BID, (Reported) MORNING AND NOON Warfarin Sodium (Warfarin Sodium) 2.5 Mg Tablet, 2.5 MG PO 5XW, (Reported) PM: SUN, MON, WED, THURS, SAT Warfarin Sodium (Warfarin Sodium) 2.5 Mg Tablet, 5 MG PO 2XW, (Reported) PM: TU, FRI Scheduled PRN Acetaminophen (Acetaminophen) 325 Mg Tab, 650 MG PO Q4H PRN for PAIN, (Reported) Allergies Coded Allergies: amlodipine (Verified Adverse Reaction, Mild, DIARRHEA, 03/07/19) HERVE GARCIA DO May 14, 2021 13:16
== END 2021-05-14 17:25 | disposition home health service (06) | DRG 300 ==
LOC: M ED 15:26 → M ED INP 18:26 → ENRESERV 20:46 → M PCU 21:53
PROVIDERS: ADMIT Internal Medicine; ATTEND Internal Medicine
PROC: 30233N1 Transfusion of Nonautologous Red Blood Cells into Peripheral Vein, Percutaneous Approach (ICD-10-PCS; principal; 2021-05-13)
DX: Q27.33 Arteriovenous malformation of digestive system vessel (principal); N18.4 Chronic kidney disease, stage 4 (severe); D62 Acute posthemorrhagic anemia; K92.2 Gastrointestinal hemorrhage, unspecified; N17.9 Acute kidney failure, unspecified; I09.9 Rheumatic heart disease, unspecified; I12.9 Hypertensive chronic kidney disease with stage 1 through stage 4 chronic kidney disease, or unspecified chronic kidney disease; E11.22 Type 2 diabetes mellitus with diabetic chronic kidney disease; E78.5 Hyperlipidemia, unspecified; D51.0 Vitamin B12 deficiency anemia due to intrinsic factor deficiency; E55.9 Vitamin D deficiency, unspecified; K21.9 Gastro-esophageal reflux disease without esophagitis; Z90.11 Acquired absence of right breast and nipple; Z85.3 Personal history of malignant neoplasm of breast; Z79.4 Long term (current) use of insulin; Z79.899 Other long term (current) drug therapy; Z79.01 Long term (current) use of anticoagulants; Z88.8 Allergy status to other drugs, medicaments and biological substances; Z95.4 Presence of other heart-valve replacement

== ENCOUNTER 2021-05-25 12:54 | Outpatient (CLI) | payer MEDICARE ==
[~2021-05-25 12:54] MED LIST changes: +ACETAMINOPHEN TAB 650MG DOSE (2X325MG) PO SCH; +PANT-23 PO; +SUCR1ORA2 PO; +[UNRECOGNIZED DRUG - CODE] SQ; +diphenhydrAMINE 25MG CAP PO SCH
[2021-05-25 13:00] VITALS: BP 150/68
[2021-05-25] MEDS ORDERED: FUROSEMIDE 20MG/2ML VIAL (J1940) IV ONE (15:20)
[2021-05-25 16:00] VITALS: BP 142/62
[2021-05-25 16:15] VITALS: BP 136/56
[2021-05-25 17:00] VITALS: BP 128/60
[2021-05-25 17:55] VITALS: BP 132/62
== END 2021-05-25 18:00 | disposition home or self-care (01) ==
LOC: M INFU 12:54
PROVIDERS: ATTEND Internal Medicine Medical Oncology
DX: N18.9 Chronic kidney disease, unspecified (principal); D63.1 Anemia in chronic kidney disease; C50.911 Malignant neoplasm of unspecified site of right female breast
CPT/HCPCS: 36430; P9016

== ENCOUNTER → 2021-06-09 | Outpatient (CLI) | payer MEDICARE ==
[~2021-06-09] MED LIST changes: -ACETAMINOPHEN TAB 650MG DOSE (2X325MG) PO SCH; +LIDOCAINE 1% MDV 20ML VIAL As Ordered ONE; +MIDAZOLAM INJ 2MG/2ML VIAL (J2250 PER 1MG) As Ordered ONE; +NS 1,000 ML IV SCH; +ceFAZolin 2 GM/D5W 50 ML IV BAG (J0690 PER 500MG) As Ordered ONE; +ceFAZolin SOD 2 GM in IV 1 EA IV ONE; -diphenhydrAMINE 25MG CAP PO SCH; +diphenhydrAMINE 50MG/ML VIAL (J1200) As Ordered ONE; +fentaNYL 100 MCG/2 ML INJECTION (J3010) As Ordered ONE
== END ==
LOC: M IRPRO 13:19
PROVIDERS: ATTEND Internal Medicine Medical Oncology
DX: C50.911 Malignant neoplasm of unspecified site of right female breast (principal); Z53.8 Procedure and treatment not carried out for other reasons
CPT/HCPCS: 96374; J0690; J1644

== ENCOUNTER → 2021-06-16 | Outpatient (REF) | payer MEDICARE ==
[~2021-06-16] MED LIST changes: -LIDOCAINE 1% MDV 20ML VIAL As Ordered ONE; -MIDAZOLAM INJ 2MG/2ML VIAL (J2250 PER 1MG) As Ordered ONE; -NS 1,000 ML IV SCH; -ceFAZolin 2 GM/D5W 50 ML IV BAG (J0690 PER 500MG) As Ordered ONE; -ceFAZolin SOD 2 GM in IV 1 EA IV ONE; -diphenhydrAMINE 50MG/ML VIAL (J1200) As Ordered ONE; -fentaNYL 100 MCG/2 ML INJECTION (J3010) As Ordered ONE
== END ==
LOC: M LAB REF 13:22
PROVIDERS: ATTEND Nurse Practitioner Family
DX: E83.42 Hypomagnesemia (principal)

== ENCOUNTER 2021-06-17 21:38 | Emergency (ER) | payer MEDICARE ==
[~2021-06-17] VITALS: Ht 152.4 cm; Wt 65.6 kg
[2021-06-18 01:59] LABS: INR 1.65; PROTHROMBIN TIME 19.9 SECONDS (12.7-14.5)
[2021-06-18 02:00] LABS: PARTIAL THROMBOPLASTIN TIME 34.9 SECONDS (25.9-37.0)
--- NOTE | 2021-06-18 03:02 | REPVR ---
PROCEDURE INFORMATION: Exam: US Duplex Right Lower Extremity Veins, Limited Exam date and time: 06/18/2021 1:34 AM Age: 75 years old Clinical indication: Edema, localized; Lower extremity, right; Additional info: Right leg swelling with ecchymosis, lump, R/O dvt TECHNIQUE: Imaging protocol: Real-time Duplex ultrasound of the Right Lower Extremity with 2-D garcia scale, color Doppler flow and spectral waveform analysis with image documentation. Limited exam was focused on the right lower extremity veins. COMPARISON: CT ABD PELVIS W/O CONTRAST 02/25/2019 2:42 PM FINDINGS: Right deep veins: Unremarkable. The common femoral, femoral, and popliteal veins are patent without thrombus. Normal compressibility, augmentation response and Doppler waveforms. Right superficial veins: Unremarkable. Saphenofemoral junction is patent without thrombus. Left common femoral vein: The left common femoral vein is patent and demonstrates normal color Doppler flow and a normal spectral waveform. Soft tissues: There is a 1.1 cm x 0.8 cm x 1.8 cm complex fluid collection in the region of the right popliteal fossa. IMPRESSION: 1. No deep vein thrombosis in the veins imaged in the right lower extremity. 2. 1.1 cm x 0.8 cm x 1.8 cm complex fluid collection in the region of the right popliteal fossa, which may represent a popliteal cyst. Electronically signed by: Bryant Art On 06/18/2021 03:01:47 AM
[2021-06-18 04:16] VITALS: BP 162/70
== END 2021-06-18 04:18 | disposition home or self-care (01) ==
LOC: M ED 21:38
DX: R23.3 Spontaneous ecchymoses (principal); M71.21 Synovial cyst of popliteal space [Baker], right knee; I48.91 Unspecified atrial fibrillation; I25.10 Atherosclerotic heart disease of native coronary artery without angina pectoris; N18.9 Chronic kidney disease, unspecified; E11.9 Type 2 diabetes mellitus without complications; Z88.8 Allergy status to other drugs, medicaments and biological substances; Z79.4 Long term (current) use of insulin; Z79.899 Other long term (current) drug therapy; Z79.01 Long term (current) use of anticoagulants

== ENCOUNTER → 2021-06-23 | Outpatient (CLI) | payer MEDICARE ==
[~2021-06-23] MED LIST changes: +ENOX40IN3 SC; +FOLI1TAB11 PO; +LIDOCAINE 1% MDV 20ML VIAL As Ordered ONE; +MIDAZOLAM INJ 2MG/2ML VIAL (J2250 PER 1MG) As Ordered ONE; +NS 1,000 ML IV SCH; +ceFAZolin 2 GM/D5W 50 ML IV BAG (J0690 PER 500MG) As Ordered ONE; +ceFAZolin SOD 2 GM in IV 1 EA IV ONE; +diphenhydrAMINE 50MG/ML VIAL (J1200) As Ordered ONE; +fentaNYL 100 MCG/2 ML INJECTION (J3010) As Ordered ONE
--- NOTE | 2021-06-23 10:31 | IRHP ---
[facility] IR Pre-Procedure H & P General Date of Service: Jun 23, 2021 Procedure: Same Day Surgery Interval History and Physical I have seen the patient and reviewed last H & P performed within 30 days. There is no significant interval change. History of Present Illness Chief Complaint The patient is a 75-year-old female admitted with a reason for visit of Breast Ca. PRE-PROCEDURE DIAGNOSIS: Breast cancer HEART: Normal rate. LUNGS: Normal breathing at rest. ASA Classification ASA Classification: III-Severe systemic dis. Mallampati Score: II NPO: Yes Problems with prior sedation: No Obstructive Sleep Apnea: No Plan moderate sedation Allergies Coded Allergies: amlodipine (Verified Adverse Reaction, Mild, DIARRHEA, 03/07/19) Home Medications Scheduled Atorvastatin Calcium (Atorvastatin Calcium), 40 MG PO QHS, (Reported) Calcium Acetate (Calcium Acetate), 667 MG PO WM, (Reported) Carvedilol (Carvedilol), 6.25 MG PO BID, (Reported) Cholecalciferol (Vitamin D3) (Vitamin D3), 5,000 UNITS PO DAILY, (Reported) Cyanocobalamin (Vitamin B-12) (Vitamin B-12), 500 MCG PO DAILY, (Reported) Dicyclomine HCl (Dicyclomine HCl), 20 MG PO AC, (Reported) Enoxaparin Sodium (Enoxaparin Sodium), 40 MG SC DAILY, (Reported) Epoetin Sha (Epogen), 1 DOSE SQ Q2WK, (Reported) Febuxostat (Uloric), 80 MG PO DAILY, (Reported) Ferrous Sulfate, Dried (Slow Release Iron), 65 MG PO DAILY, (Reported) Hydralazine HCl (Hydralazine HCl), 20 MG PO BID, (Reported) Insulin Detemir (Levemir), 5 UNITS SC DAILY, (Reported) Insulin Lispro (Humalog), 1 DOSE SC AC, (Reported) Letrozole (Letrozole), 2.5 MG PO DAILY Magnesium Oxide (Magnesium Oxide), 400 MG PO BID, (Reported) Pantoprazole Sodium (Pantoprazole Sodium), 40 MG PO BID, (Reported) Sucralfate (Sucralfate), 1 GM PO ACHS, (Reported) Torsemide (Torsemide), 20 MG PO BID, (Reported) Warfarin Sodium (Warfarin Sodium), 2.5 MG PO 5XW, (Reported) Warfarin Sodium (Warfarin Sodium), 5 MG PO 2XW, (Reported) Scheduled PRN Acetaminophen (Acetaminophen), 650 MG PO Q4H PRN for PAIN, (Reported) VS, I&O, 24H, Fishbone Vital Signs/I&O Vital Signs Date Time Temp Pulse Resp B/P (MAP) Pulse Ox O2 Delivery O2 Flow Rate FiO2 06/23/21 08:35 98.2 96 18 96 Room Air Laboratory Data 24H LABS Laboratory Tests 2 06/23/21 10:08: CBC/BMP HUMBERTO SIBLEY MD Jun 23, 2021 10:31
[2021-06-23 10:41] LABS: HEMATOCRIT 34.4 % (36.0-47.0); HEMOGLOBIN 10.9 g/dl (12.0-15.5); MEAN CORPUSCULAR HEMOGLOBIN 28.3 pg (27.0-33.0); MEAN CORPUSCULAR HGB CONC 31.7 g/dl (32.0-36.5); MEAN CORPUSCULAR VOLUME 89.4 fl (80.0-96.0); PLATELET COUNT, AUTOMATED 228 10^3/uL (150-450); RED BLOOD COUNT 3.85 10^6/uL (4.00-5.40); WHITE BLOOD COUNT 7.2 10^3/uL (4.0-10.0)
[2021-06-23 11:12] LABS: INR 1.29; PROTHROMBIN TIME 16.5 SECONDS (12.7-14.5)
[2021-06-23 14:00] VITALS: BP 138/65
--- NOTE | 2021-06-24 10:23 | IRPON ---
IR Postoperative Note Date Of Procedure: Jun 23, 2021 Time Of Procedure: 16:00 IR Postoperative Note IR Ultrasound and fluoroscopy guided port placement. IR Ultrasound of the neck. IR Moderate sedation. Clinical indication: Breast cancer. Physician: Dr. Medina. Procedure: The patient was advised of the benefits, risks, and alternatives of the procedure and informed consent was obtained. A time-out was performed with verification of the patient's name, MRN, site of procedure and type of procedure to be performed. The patient was positioned in the supine position on the angiographic table. The site was prepped and draped in the usual sterile fashion. Moderate sedation was performed by the physician including the presence of an independent trained RN who assisted and monitored the patient's level of consciousness and physiologic status. Following the administration of fentanyl and Versed , the physician spent 45 minutes of continuous face to face time with the patient. Ultrasound of the neck reveals a patent and compressible right internal jugular vein. A dispatcher service or work radiograph reveals cardiac hardware. The neck and anterior chest wall were anesthetized with lidocaine. The right internal jugular vein was accessed using a microintroducer needle under ultrasound guidance, via a lateral approach. An 018 wire was advanced into the superior vena cava, the needle was removed and a microsheath was placed. An Amplatz wire was then passed into the inferior vena cava. An incision at the internal jugular vein access site and anterior chest wall were made using a scalpel. An incision was made at the anterior chest wall. A small pocket was created using a combination of blunt and sharp dissection. A tunneling device was then used to pass the catheter from the pocket to the neck puncture site. An 8- [place] [employer] Smart power port was then positioned in the pocket. The catheter was then measured and cut. The introducer sheath was exchanged for a peel-away sheath. The catheter was passed through the peel-away sheath into the internal jugular vein and the peel-away sheath was removed. The port tip was positioned at the cavoatrial junction. The port was then accessed with a Naranjo needle. The port flushes and aspirates well. The puncture site in the neck was closed. The chest wall incision was then closed with 2-0 Vicryl and 4-0 Monocryl. Glue and Steri- Strips were applied. A sterile dressing was then applied. The patient tolerated the procedure well and was returned to the PRU in stable condition. Estimated blood loss: <5 ml. Complications: None. Conclusion: 1. Successful placement of an 8-[place] Angio dynamics Smart power port via the right internal jugular vein. The port is ready for immediate use. 2. Patient to follow up in IR clinic in 2 weeks. Thank you for this referral. HUMBERTO MEDINA MD Jun 24, 2021 10:23
== END ==
LOC: M IRPRO 09:22
PROVIDERS: ATTEND Internal Medicine Medical Oncology
DX: C50.919 Malignant neoplasm of unspecified site of unspecified female breast (principal); Z79.01 Long term (current) use of anticoagulants; Z79.4 Long term (current) use of insulin; Z79.899 Other long term (current) drug therapy; Z88.8 Allergy status to other drugs, medicaments and biological substances
CPT/HCPCS: 36561; 85027; 85610; 85730; 99152; 99153; C1769; C1788; C1894; J0690; J1200; J1642; J1644; J2250; J3010

== ENCOUNTER → 2021-07-08 | Outpatient (CLI) | payer MEDICARE ==
[~2021-07-08] MED LIST changes: +GASTROGRAFIN SOLUTION 30ML (Q9963) As Ordered ONE; -LIDOCAINE 1% MDV 20ML VIAL As Ordered ONE; -MIDAZOLAM INJ 2MG/2ML VIAL (J2250 PER 1MG) As Ordered ONE; -NS 1,000 ML IV SCH; -ceFAZolin 2 GM/D5W 50 ML IV BAG (J0690 PER 500MG) As Ordered ONE; -ceFAZolin SOD 2 GM in IV 1 EA IV ONE; -diphenhydrAMINE 50MG/ML VIAL (J1200) As Ordered ONE; -fentaNYL 100 MCG/2 ML INJECTION (J3010) As Ordered ONE
--- NOTE | 2021-07-08 14:02 | REP ---
INDICATION: BREAST CA F/U W/ ABD PAIN COMPARISON: 02/25/2019 TECHNIQUE: Axial noncontrast images from the lung bases to the pubic symphysis with coronal and sagittal reformations. This CT examination was performed using the following dose reduction techniques: Automated exposure control, adjustment of mA and/or kv according to the patient's size, and use of iterative reconstruction technique. FINDINGS: Lung bases are clear. Visualized heart and pericardium normal. Patient is noted to be status post left mastectomy. Liver, spleen, pancreas, and bilateral adrenal glands are normal. Cholelithiasis noted without acute cholecystitis. Kidneys demonstrate relatively stable atrophic changes, moderate chronic perinephric stranding, and simple/complex hypodense lesions similar to prior examination. The enteric system is unremarkable and without obstruction or acute inflammatory process. Normal terminal ileum and appendix identified in the right lower quadrant. Diverticulosis noted without acute diverticulitis. Pelvis demonstrates normal bladder and age-appropriate uterus/adnexa. No ascites. No free air. No adenopathy. No focal inflammatory stranding. Vasculature demonstrates atherosclerotic changes without aneurysm. Osseous structures demonstrate degenerative changes without obvious acute focal abnormality. There are 2 ovoid lesions in the right anterior rectus muscle/sheath (series 201; images 62-94) measuring roughly 4-5 cm maximal transverse diameter which represent new lesions. Differential diagnosis includes areas of hematoma versus mass/metastatic foci. IMPRESSION: 1. Two ovoid lesions in the anterior abdominal rectus muscle/sheath as described above concerning for areas of hematoma versus mass. Further immediate attention/investigation is recommended. 2. Simple and complex renal hypodensities may warrant ultrasound evaluation to exclude the possibility of mass and differentiate for possible complex cysts. 3. Cholelithiasis. 4. Diverticulosis. 5. Further nonacute findings as described above. <Electronically signed by Pb East > 07/08/21 [id number]
--- NOTE | 2021-07-08 16:01 | MEDONCTEEN ---
Date/Time of Encounter Date of Encounter: Jul 08, 2021 Time of Encounter: 15:52 Telephone Encounter The patient reports improvement in anterior abdominal wall pain on the right side. She states she was having pain when she was injecting herself a blood thinner but she has stopped taking this and is currently on warfarin. I discussed that CT scan abdomen pelvis 07/08/2021 showed; 1. Two ovoid lesions in the anterior abdominal rectus muscle/sheath as described above concerning for areas of hematoma versus mass. 2. Simple and complex renal hypodensities may warrant ultrasound evaluation to exclude the possibility of mass and differentiate for possible complex cysts. Since anterior abdominal wall pain has resolved, I assume that this was an area of bleeding from anticoagulant injection. Therefore no intervention needed at this time. Will continue to monitor at this time. I discussed an ultrasound of the kidneys as recommended by radiologist. The patient has agreed to the above plan. GEORGI CANALES MD FACP Jul 08, 2021 16:01
== END ==
LOC: M RAD 11:19
PROVIDERS: ATTEND Internal Medicine Medical Oncology
DX: C50.919 Malignant neoplasm of unspecified site of unspecified female breast (principal); R10.9 Unspecified abdominal pain
CPT/HCPCS: 74176; Q9963

== ENCOUNTER → 2021-07-21 | Outpatient (CLI) | payer MEDICARE ==
[~2021-07-21] MED LIST changes: -GASTROGRAFIN SOLUTION 30ML (Q9963) As Ordered ONE
--- NOTE | 2021-07-21 12:56 | REP ---
INDICATION: RENAL DENSITY. COMPARISON: Comparison urinary tract sonography September 08, 2013. Comparison CT study July 08, 2021. Comparison CT is also reviewed from February 25, 2019. TECHNIQUE: Urinary tract sonography. FINDINGS: Scanning at the level of the urinary bladder shows no abnormality. Renal cortical thinning is observed in renal cortical echogenicity pattern is increased bilaterally consistent with chronic medical renal disease and some atrophy. There are multiple anechoic and hypoechoic areas consistent with small cysts. On the right these include a 1.1 cm cyst in the upper pole and 1.2 and 1.3 cm cyst in the lower and mid pole respectively. There is a 0.9 cm cyst in the lower pole on the left. No definite mass lesion is seen. There is no evidence hydronephrosis on either side. The right kidney measures 10.0 x 5.0 x 4.4 cm. Left renal dimensions are 8.9 x 3.9 x 5.7 cm. IMPRESSION: Bilateral renal cortical atrophy and increased echogenicity consistent with chronic medical renal disease. Small cortical cysts bilaterally. No hydronephrosis. No definite mass. <Electronically signed by Jai Hoffmann > 07/21/21 [id number]
== END ==
LOC: M RAD 11:53
PROVIDERS: ATTEND Internal Medicine Medical Oncology
DX: N26.1 Atrophy of kidney (terminal) (principal)

== ENCOUNTER → 2021-08-19 | Outpatient (REF) | payer MEDICARE | LOC: M LAB REF 16:55 | PROVIDERS: ATTEND Nurse Practitioner Family | DX: E83.42 Hypomagnesemia (principal) ==

== ENCOUNTER → 2021-09-19 | Outpatient (CLI) | payer MEDICARE | LOC: M LABSMTC 10:10 | PROVIDERS: ATTEND Anesthesiology | DX: Z01.812 Encounter for preprocedural laboratory examination (principal); Z20.822 Contact with and (suspected) exposure to COVID-19 ==

== ENCOUNTER 2021-09-23 12:09 | Day surgery (SDC) | payer MEDICARE ==
[~2021-09-23] VITALS: Ht 154.9 cm; Wt 63.5 kg
[~2021-09-23 12:09] MED LIST changes: +ENOX40IN3 PO; +NS 1,000 ML IV ONE; +SODIUM CHLORIDE 0.9% INJ 10 ML SYR IV SCH
[2021-09-23] MEDS ORDERED: propofoL 200 MG/20 ML VIAL As Ordered ONE (12:55)
[2021-09-23] MEDS ORDERED: LIDOCAINE 2% 100MG/5ML SDV (FOR ANES.) As Ordered ONE (12:55)
[2021-09-23] MEDS ORDERED: fentaNYL 100 MCG/2 ML INJECTION (J3010) As Ordered ONE (12:55)
--- NOTE | 2021-09-23 15:21 | ROOR ---
Patient Name: Janie Leach Procedure Date: 09/23/2021 2:32 PM Date of : 1945 Age: 75 Room: [facility] Gender: Female Note Status: Finalized Procedure: Upper GI endoscopy Indications: Gastrointestinal bleeding of unknown origin, Gastrointestinal bleeding source not found during previous colonoscopy Providers: Raj Gastelum MD Referring MD: Julian Seymour DO Requesting Provider: Medicines: Monitored Anesthesia Care Complications: No immediate complications. Procedure: Pre-Anesthesia Assessment: - Prior to the procedure, a History and Physical was performed, and patient medications and allergies were reviewed. The patient is competent. The risks and benefits of the procedure and the sedation options and risks were discussed with the patient. All questions were answered and informed consent was obtained. Patient identification and proposed procedure were verified by the physician, the nurse and the anesthesiologist in the procedure room. Mental Status Examination: alert and oriented. Airway Examination: normal oropharyngeal airway and neck mobility. Respiratory Examination: clear to auscultation. CV Examination: normal. Prophylactic Antibiotics: The patient does not require prophylactic antibiotics. Prior Anticoagulants: The patient has taken Coumadin (warfarin), last dose was 4 days prior to procedure. ASA Grade Assessment: III - A patient with severe systemic disease. After reviewing the risks and benefits, the patient was deemed in satisfactory condition to undergo the procedure. The anesthesia plan was to use monitored anesthesia care (MAC). Immediately prior to administration of medications, the patient was re-assessed for adequacy to receive sedatives. The heart rate, respiratory rate, oxygen saturations, blood pressure, adequacy of pulmonary ventilation, and response to care were monitored throughout the procedure. The physical status of the patient was re-assessed after the procedure. The Colonoscope was introduced through the mouth, and advanced to the proximal jejunum. The upper GI endoscopy was accomplished without difficulty. The patient tolerated the procedure well. Findings: The examined esophagus was normal. The Z-line was regular and was found at the gastroesophageal junction. Patchy moderate mucosal changes characterized by friability (with contact bleeding), granularity and scarring were found in the gastric body, on the posterior wall of the stomach and in the gastric antrum. Biopsies were taken with a cold forceps for histology. Verification of patient identification for the specimen was done by the physician and nurse using the patient's name, date and medical record number. Estimated blood loss was minimal. Patchy mildly erythematous mucosa without active bleeding and with no stigmata of bleeding was found in the duodenal bulb. The first portion of the duodenum, second portion of the duodenum and third portion of the duodenum were normal. The examined jejunum was normal. There is no endoscopic evidence of ulceration in the entire examined duodenum. Impression: - Normal esophagus. - Z-line regular, at the gastroesophageal junction. - Friable (with contact bleeding), granular and scarred mucosa in the gastric body, posterior wall of the stomach and antrum. Biopsied. - Erythematous duodenopathy. - Normal first portion of the duodenum, second portion of the duodenum and third portion of the duodenum. - Normal examined jejunum. Recommendation: - Patient has a contact number available for emergencies. The signs and symptoms of potential delayed complications were discussed with the patient. Return to normal activities tomorrow. Written discharge instructions were provided to the patient. - High fiber diet. - Continue present medications. - Await pathology results. - Return to GI clinic in [facility] (address: [address] [place] [address], [address] [place] [address], [place], [place],[address]) in 4 -- 6 weeks. Please call GI clinic @ [phone] for apppointment date and time. - Return to primary care physician. Procedure Code(s): --- Professional --- 25493, Esophagogastroduodenoscopy, flexible, transoral; with biopsy, single or multiple Diagnosis Code(s): --- Professional --- K92.2, Gastrointestinal hemorrhage, unspecified K31.89, Other diseases of stomach and duodenum CPT copyright 2019 [employer]. All rights reserved. The codes documented in this report are preliminary and upon chef concierge review may be revised to meet current compliance requirements. Raj Gastelum MD Raj Gastelum MD 09/23/2021 3:21:24 PM Electronically signed by Raj Gastelum MD Number of Addenda: 0 Note Initiated On: 09/23/2021 2:32 PM Estimated Blood Loss: Estimated blood loss: none.
[2021-09-23 15:45] VITALS: BP 159/63
== END 2021-09-23 16:12 | disposition home or self-care (01) ==
LOC: M OPP 12:09
PROVIDERS: ATTEND Internal Medicine Gastroenterology
DX: K92.2 Gastrointestinal hemorrhage, unspecified (principal); K31.89 Other diseases of stomach and duodenum; D64.9 Anemia, unspecified; Z87.11 Personal history of peptic ulcer disease; Z79.01 Long term (current) use of anticoagulants; Z79.2 Long term (current) use of antibiotics; Z79.4 Long term (current) use of insulin; Z85.3 Personal history of malignant neoplasm of breast; Z88.8 Allergy status to other drugs, medicaments and biological substances; Z95.2 Presence of prosthetic heart valve; Z80.41 Family history of malignant neoplasm of ovary; Z80.3 Family history of malignant neoplasm of breast
CPT/HCPCS: 43239; 88305; J1642; J3010

== ENCOUNTER → 2021-12-21 | Outpatient (CLI) | payer MEDICARE ==
[~2021-12-21] MED LIST changes: +ALEN70TA82 PO; -DICY20TA11 PO; +DICY20TA20 PO; -LISI-898 PO; +LISI5TAB11 PO; -NS 1,000 ML IV ONE; -SODIUM CHLORIDE 0.9% INJ 10 ML SYR IV SCH
[2021-12-21 12:10] LABS: INR 2.44; PROTHROMBIN TIME 26.9 SECONDS (12.7-14.5)
== END ==
LOC: M LAB 10:55
PROVIDERS: ATTEND Physician Assistant
DX: Z95.2 Presence of prosthetic heart valve (principal); Z79.01 Long term (current) use of anticoagulants

== ENCOUNTER → 2022-01-11 | Outpatient (REF) | payer MEDICARE | LOC: M LAB REF 12:30 | PROVIDERS: ATTEND Nurse Practitioner Family | DX: E83.42 Hypomagnesemia (principal) ==

== ENCOUNTER → 2022-02-28 | Outpatient (REF) | payer MEDICARE ==
[~2022-02-28] MED LIST changes: -D31000TA2 PO; +VITA100093 PO
[2022-02-28 18:53] LABS: HEPATITIS B CORE ANTIBODY IGM NEGATIVE (NEGATIVE); HEPATITIS B SURFACE ANTIBODY NEGATIVE (POSITIVE); HEPATITIS B SURFACE ANTIGEN NEGATIVE (NEGATIVE); HEPATITIS C VIRUS ABY INDEX 0.1 INDEX (<0.8)
== END ==
LOC: M LAB REF 16:48
PROVIDERS: ATTEND Nurse Practitioner Family
DX: N18.5 Chronic kidney disease, stage 5 (principal)

== ENCOUNTER 2022-03-20 19:58 | Emergency (ER) | payer MEDICARE ==
[~2022-03-20] VITALS: Ht 154.9 cm; Wt 63.0 kg
[2022-03-20 22:54] LABS: BASO # 0.1 10^3/uL (0.0-0.2); BASO % 1.1 % (0.0-1.0); EOS # 0.2 10^3/uL (0.0-0.5); EOS % 3.7 % (0.0-3.0); LYMPH % 15.5 % (24.0-44.0); MEAN CORPUSCULAR HEMOGLOBIN 30.6 pg (27.0-33.0); MONO # 0.6 10^3/uL (0.0-0.8); MONO % 9.9 % (2.0-8.0); NEUTROPHILS # 4.5 10^3/uL (1.5-8.5); NEUTROPHILS % 69.5 % (36.0-66.0); PLATELET COUNT, AUTOMATED 252 10^3/uL (150-450); RED BLOOD COUNT 1.96 10^6/uL (4.00-5.40); WHITE BLOOD COUNT 6.5 10^3/uL (4.0-10.0)
[2022-03-20 23:02] LABS: INR 2.72; PROTHROMBIN TIME 29.2 SECONDS (12.7-14.5)
[2022-03-20 23:03] LABS: PARTIAL THROMBOPLASTIN TIME 46.4 SECONDS (25.9-37.0)
[2022-03-20 23:21] LABS: ALBUMIN 3.3 GM/DL (3.2-5.2); BILIRUBIN,TOTAL 0.2 MG/DL (0.2-1.0); CALCIUM LEVEL 8.8 MG/DL (8.8-10.2); CREATININE FOR GFR 4.27 MG/DL (0.55-1.30); GLOMERULAR FILTRATION RATE 10.7 (>39); POTASSIUM SERUM 4.6 MEQ/L (3.5-5.1)
[2022-03-21] VITALS (8 sets, daily range): BP systolic 150–202; BP diastolic 67–88
[2022-03-21 06:37] LABS: HEMATOCRIT 25.5 % (36.0-47.0); MEAN CORPUSCULAR HEMOGLOBIN 31.3 pg (27.0-33.0); MEAN CORPUSCULAR HGB CONC 32.9 g/dl (32.0-36.5); MEAN CORPUSCULAR VOLUME 95.1 fl (80.0-96.0); PLATELET COUNT, AUTOMATED 158 10^3/uL (150-450); RED BLOOD COUNT 2.68 10^6/uL (4.00-5.40); WHITE BLOOD COUNT 4.2 10^3/uL (4.0-10.0)
[2022-03-21 06:57] LABS: HEMOGLOBIN 8.4 g/dl (12.0-15.5)
[2022-03-21] MEDS ORDERED: SODIUM CHLORIDE 0.9% INJ 10 ML SYR IV SCH (09:00)
== END 2022-03-21 07:26 | disposition home or self-care (01) ==
LOC: M ED 19:58
DX: D64.9 Anemia, unspecified (principal); E11.9 Type 2 diabetes mellitus without complications; I10 Essential (primary) hypertension; E78.5 Hyperlipidemia, unspecified; N18.9 Chronic kidney disease, unspecified; Z79.84 Long term (current) use of oral hypoglycemic drugs; Z88.8 Allergy status to other drugs, medicaments and biological substances; C50.919 Malignant neoplasm of unspecified site of unspecified female breast; Z92.21 Personal history of antineoplastic chemotherapy; Z79.01 Long term (current) use of anticoagulants; Z79.899 Other long term (current) drug therapy
CPT/HCPCS: 36430; 80053; 85025; 85027; 85610; 85730; 86850; 86900; 86901; 86920; 96374; 99285; J1642; P9016

== ENCOUNTER 2022-03-29 13:49 | Outpatient (CLI) | payer MEDICARE ==
[~2022-03-29] VITALS: Ht 154.9 cm; Wt 61.4 kg
[2022-03-29 13:55] VITALS: BP 183/81
[2022-03-29] MEDS ORDERED: ACETAMINOPHEN TAB 650MG DOSE (2X325MG) PO ONE (14:30)
[2022-03-29] MEDS ORDERED: diphenhydrAMINE 25MG CAP PO ONE (14:30)
[2022-03-29] MEDS ORDERED: FUROSEMIDE 20MG/2ML VIAL (J1940) IV ONE (15:00)
[2022-03-29 15:08] VITALS: BP 140/57
[2022-03-29] MEDS ORDERED: SODIUM CHLORIDE 0.9% INJ 10 ML SYR IV PRN (15:40)
[2022-03-29 16:40] VITALS: BP 190/60
[2022-03-30] MEDS ORDERED: SODIUM CHLORIDE 0.9% INJ 10 ML SYR IV SCH (09:00)
== END 2022-03-29 16:40 | disposition home or self-care (01) ==
LOC: M INFU 13:49
PROVIDERS: ATTEND Internal Medicine Medical Oncology
DX: D64.9 Anemia, unspecified (principal); Z88.8 Allergy status to other drugs, medicaments and biological substances
CPT/HCPCS: 36430; 96374; J1642; J1940; P9016

== ENCOUNTER → 2022-03-30 | Outpatient (CLI) | payer MEDICARE | LOC: M WHC 15:15 | PROVIDERS: ATTEND Internal Medicine Medical Oncology | DX: Z12.31 Encounter for screening mammogram for malignant neoplasm of breast (principal); Z90.12 Acquired absence of left breast and nipple ==

== ENCOUNTER 2022-07-29 14:57 | Emergency (ER) | payer MEDICARE ==
[~2022-07-29] VITALS: Ht 154.9 cm; Wt 61.7 kg
[~2022-07-29 14:57] MED LIST changes: +AMLO2.5T3
[2022-07-29 15:43] LABS: HEMATOCRIT 32.3 % (36.0-47.0); HEMOGLOBIN 9.7 g/dl (12.0-15.5); MEAN CORPUSCULAR HEMOGLOBIN 31.2 pg (27.0-33.0); MEAN CORPUSCULAR VOLUME 103.9 fl (80.0-96.0); PLATELET COUNT, AUTOMATED 186 10^3/uL (150-450); RED BLOOD COUNT 3.11 10^6/uL (4.00-5.40); WHITE BLOOD COUNT 5.5 10^3/uL (4.0-10.0)
[2022-07-29 16:58] VITALS: BP 160/82
== END 2022-07-29 16:59 | disposition home or self-care (01) ==
LOC: M ED 14:57
DX: T82.838A Hemorrhage due to vascular prosthetic devices, implants and grafts, initial encounter (principal); I77.0 Arteriovenous fistula, acquired; E11.9 Type 2 diabetes mellitus without complications; I10 Essential (primary) hypertension; E78.5 Hyperlipidemia, unspecified; C50.919 Malignant neoplasm of unspecified site of unspecified female breast; N18.5 Chronic kidney disease, stage 5; Z87.891 Personal history of nicotine dependence; Z88.8 Allergy status to other drugs, medicaments and biological substances; Z79.01 Long term (current) use of anticoagulants; Z79.4 Long term (current) use of insulin; Z79.899 Other long term (current) drug therapy

== ENCOUNTER 2022-08-01 12:10 | Emergency (ER) | payer MEDICARE ==
[2022-08-01 12:30] VITALS: BP 180/75
== END 2022-08-01 13:57 | disposition home or self-care (01) ==
LOC: M ED 12:10
DX: K91.89 Other postprocedural complications and disorders of digestive system (principal); I77.0 Arteriovenous fistula, acquired; R22.32 Localized swelling, mass and lump, left upper limb; D63.0 Anemia in neoplastic disease; E11.9 Type 2 diabetes mellitus without complications; I10 Essential (primary) hypertension; E78.5 Hyperlipidemia, unspecified; C50.919 Malignant neoplasm of unspecified site of unspecified female breast; Z87.891 Personal history of nicotine dependence; Z88.8 Allergy status to other drugs, medicaments and biological substances; Z79.4 Long term (current) use of insulin; Z79.899 Other long term (current) drug therapy; Z90.12 Acquired absence of left breast and nipple; Z79.01 Long term (current) use of anticoagulants

== ENCOUNTER 2022-08-23 11:47 | Outpatient (CLI) | payer MEDICARE ==
[~2022-08-23] VITALS: Ht 154.9 cm; Wt 64.0 kg
[~2022-08-23 11:47] MED LIST changes: +SODIUM CHLORIDE 0.9% INJ 10 ML SYR IV SCH
[2022-08-23 12:00] VITALS: BP 160/79
[2022-08-23] MEDS ORDERED: diphenhydrAMINE 25MG CAP PO ONE (12:20)
[2022-08-23] MEDS ORDERED: ACETAMINOPHEN TAB 650MG DOSE (2X325MG) PO ONE (12:25)
[2022-08-23 13:15] VITALS: BP 163/73
[2022-08-23 14:15] VITALS: BP 141/63
[2022-08-23 14:54] VITALS: BP 144/66
[2022-08-23] MEDS ORDERED: SODIUM CHLORIDE 0.9% INJ 10 ML SYR IV PRN (15:20)
[2022-08-23 15:30] VITALS: BP 166/71
== END 2022-08-23 15:30 | disposition home or self-care (01) ==
LOC: M INFU 11:47
PROVIDERS: ATTEND Internal Medicine Medical Oncology
DX: Z85.3 Personal history of malignant neoplasm of breast (principal); Z88.8 Allergy status to other drugs, medicaments and biological substances
CPT/HCPCS: 36430; 96523; J1642; P9016

== ENCOUNTER 2022-09-13 12:10 | Outpatient (CLI) | payer MEDICARE ==
[~2022-09-13] VITALS: Ht 154.9 cm; Wt 64.5 kg
[2022-09-13 12:30] VITALS: BP 178/79
[2022-09-13] MEDS ORDERED: ACETAMINOPHEN TAB 650MG DOSE (2X325MG) PO ONE (13:00)
[2022-09-13] MEDS ORDERED: diphenhydrAMINE 25MG CAP PO ONE (13:00)
[2022-09-13 13:20] VITALS: BP 155/66
[2022-09-13 15:55] VITALS: BP 135/65
== END 2022-09-13 15:55 | disposition home or self-care (01) ==
LOC: M INFU 12:10
PROVIDERS: ATTEND Internal Medicine Medical Oncology
DX: D64.9 Anemia, unspecified (principal); Z88.8 Allergy status to other drugs, medicaments and biological substances
CPT/HCPCS: 36430; 36591; 86850; 86900; 86901; 86920; 96523; J1642; P9016

== ENCOUNTER → 2022-09-19 | Outpatient (REF) | payer MEDICARE ==
[~2022-09-19] MED LIST changes: -SODIUM CHLORIDE 0.9% INJ 10 ML SYR IV SCH
[2022-09-19 19:57] LABS: HEPATITIS B CORE ANTIBODY IGM NEGATIVE (NEGATIVE); HEPATITIS B SURFACE ANTIBODY NEGATIVE (POSITIVE); HEPATITIS B SURFACE ANTIGEN NEGATIVE (NEGATIVE); HEPATITIS C VIRUS ABY INDEX < 0.0 INDEX (<0.8)
== END ==
LOC: M LAB REF 17:14
PROVIDERS: ATTEND Internal Medicine Nephrology
DX: N18.5 Chronic kidney disease, stage 5 (principal)

== ENCOUNTER 2022-10-25 18:13 | Inpatient (IN) | payer MEDICARE ==
[~2022-10-25] VITALS: Ht 154.9 cm; Wt 58.8 kg
[2022-10-25 19:36] LABS: BASO % 0.3 % (0.0-1.0); EOS # 0.2 10^3/uL (0.0-0.5); EOS % 2.3 % (0.0-3.0); LYMPH # 0.6 10^3/uL (1.5-5.0); LYMPH % 8.4 % (24.0-44.0); MEAN CORPUSCULAR HEMOGLOBIN 29.1 pg (27.0-33.0); MEAN CORPUSCULAR HGB CONC 30.8 g/dl (32.0-36.5); MEAN CORPUSCULAR VOLUME 94.5 fl (80.0-96.0); MONO # 0.7 10^3/uL (0.0-0.8); MONO % 9.4 % (2.0-8.0); NEUTROPHILS # 5.8 10^3/uL (1.5-8.5); NEUTROPHILS % 78.2 % (36.0-66.0); PLATELET COUNT, AUTOMATED 263 10^3/uL (150-450); RED BLOOD COUNT 1.65 10^6/uL (4.00-5.40); WHITE BLOOD COUNT 7.4 10^3/uL (4.0-10.0)
[2022-10-25 19:38] LABS: PROTHROMBIN TIME 61.3 SECONDS (12.5-14.5)
[2022-10-25 19:39] LABS: PARTIAL THROMBOPLASTIN TIME 85.3 SECONDS (24.8-34.2)
[2022-10-25 19:42] LABS: HEMATOCRIT 15.6 % (36.0-47.0); HEMOGLOBIN 4.8 g/dl (12.0-15.5)
[2022-10-25] MEDS ORDERED: FUROSEMIDE 40MG/4ML VIAL IV ONE (19:50)
[2022-10-25 19:51] LABS: CK-MB VALUE MASS < 1.0 NG/ML (<3.6)
[2022-10-25 19:53] LABS: BLOOD UREA NITROGEN 17 MG/DL (9-23); CALCIUM LEVEL 6.6 MG/DL (8.3-10.6); CARBON DIOXIDE LEVEL 28 MMOL/L (20-31); CHLORIDE LEVEL 105 MMOL/L (98-107); CPK CREATINE PHOSPHOKINASE 30 U/L (34-145); CREATININE FOR GFR 1.59 MG/DL (0.55-1.30); GLOMERULAR FILTRATION RATE 33.5 (>39); GLUCOSE, FASTING 213 MG/DL (74-106); MB/CK RELATIVE INDEX 3.33 (< OR =4); SODIUM LEVEL 138 MMOL/L (136-145)
[2022-10-25 20:42] VITALS: BP 119/55
[2022-10-25 21:00] VITALS: BP 129/57
[2022-10-25] MEDS ORDERED: PHYTONADIONE 5 MG TAB PO ONE (21:30)
[2022-10-25] MEDS ORDERED: POTASSIUM CHLORIDE 10MEQ SR TABLET PO ONE (21:35)
[2022-10-25 22:00] VITALS: BP 128/58
[2022-10-25 22:14] VITALS: BP 141/70
[2022-10-25 23:25] VITALS: BP 135/57
[2022-10-25 23:38] LABS: RSV AMPLIFICATION NEGATIVE (NEGATIVE)
[2022-10-25 23:40] VITALS: BP 110/56
[2022-10-26] VITALS (8 sets, daily range): BP systolic 108–176; BP diastolic 55–69
[2022-10-26] MEDS ORDERED: GLUCOSE 4GM CHEW TABLET PO PRN (00:35)
[2022-10-26] MEDS ORDERED: DEXTROSE 50% 50ML SYRINGE IV PRN (00:35)
[2022-10-26] MEDS ORDERED: GLUCAGON INJ 1MG VIAL SC PRN (00:35)
[2022-10-26] MEDS ORDERED: TORS20TA2 PO (00:37)
[2022-10-26] MEDS ORDERED: FERR325T18 PO (00:37)
[2022-10-26] MEDS ORDERED: INSUH10VL SC (00:37)
[2022-10-26] MEDS ORDERED: WARF-18 PO ×2 (01:42)
[2022-10-26] MEDS: INSULIN LISPRO (NovoLOG) PER UNIT SC SCH ×4 (01:51→17:35)
[2022-10-26] MEDS: PANTOPRAZOLE 40MG VIAL IV SCH ×3 (04:08→20:28)
[2022-10-26] MEDS ORDERED: POTASSIUM CHLORIDE 10MEQ SR TABLET PO ONE (06:00)
[2022-10-26 06:46] LABS: HEMATOCRIT 27.6 % (36.0-47.0)
[2022-10-26 06:53] LABS: HEMOGLOBIN 9.3 g/dl (12.0-15.5)
[2022-10-26 06:59] LABS: INR 4.28; PROTHROMBIN TIME 41.7 SECONDS (12.5-14.5)
[2022-10-26] MEDS ORDERED: PATIENT COMMENT ×2 (07:21→10:48)
[2022-10-26] MEDS ORDERED: HOME MED LIST COMPLETE! XX SCH (07:25)
[2022-10-26 07:38] LABS: CALCIUM LEVEL 7.7 MG/DL (8.3-10.6); CREATININE FOR GFR 2.19 MG/DL (0.55-1.30); GLOMERULAR FILTRATION RATE 23.2 (>39); POTASSIUM SERUM 4.1 MMOL/L (3.5-5.1)
[2022-10-26] MEDS ORDERED: FERROUS SULFATE 325MG TAB PO SCH (09:00)
[2022-10-26] MEDS: LEVEMIR (INSULIN DETEMIR) 1 UNITS/0.01ML SC SCH (09:00)
[2022-10-26] MEDS ORDERED: NS 1,000 ML IV SCH (09:30)
[2022-10-26] MEDS: CYANOCOBALAMIN 500 MCG TAB PO SCH (10:25)
[2022-10-26] MEDS: **hydrALAZINE** 10 MG TAB PO SCH ×2 (10:25→20:30)
[2022-10-26] MEDS: CARVedilol 6.25 MG TAB PO SCH ×2 (10:25→20:29)
[2022-10-26] MEDS: FOLIC ACID 1MG TAB PO SCH (10:26)
[2022-10-26] MEDS: FEBUXOSTAT 40 MG TABLET (ULORIC) PO SCH (10:26)
[2022-10-26] MEDS: SUCRALFATE SUSP 1GM/10ML UD PO SCH ×4 (10:27→20:28)
[2022-10-26] MEDS: LETROZOLE 2.5 MG TAB PO SCH (10:27)
[2022-10-26] MEDS ORDERED: D5W/0.45% SODIUM CHLORIDE 1,000 ML IV SCH (12:05)
[2022-10-26 12:15] LABS: HEMATOCRIT 28.8 % (36.0-47.0); HEMOGLOBIN 9.6 g/dl (12.0-15.5)
[2022-10-26 14:54] LABS: INR 2.63; PROTHROMBIN TIME 28.5 SECONDS (12.5-14.5)
[2022-10-26] MEDS ORDERED: **hydrALAZINE** 10 MG TAB PO ONE (17:10)
[2022-10-26] MEDS: SODIUM CHLORIDE 0.9% INJ 10 ML SYR IV SCH (19:06)
[2022-10-26 19:34] LABS: HEMATOCRIT 33.9 % (36.0-47.0)
[2022-10-26 19:47] LABS: CALCIUM LEVEL 7.7 MG/DL (8.3-10.6); CREATININE FOR GFR 2.39 MG/DL (0.55-1.30); GLOMERULAR FILTRATION RATE 20.9 (>39); POTASSIUM SERUM 4.8 MMOL/L (3.5-5.1)
[2022-10-26] MEDS ORDERED: POLYETHYLENE GLYCOL (MIRALAX) 238GM BOTTLE PO ONE (20:00)
[2022-10-26] MEDS: ATORVASTATIN 10 MG TAB PO SCH (20:29)
[2022-10-26] MEDS ORDERED: IPRATROPIUM 0.5MG/ALBUTEROL 2.5MG INH SOL UD 3ML (DUONEB) NEB STA (21:43)
[2022-10-26] MEDS ORDERED: FUROSEMIDE 40MG/4ML VIAL IV ONE (21:50)
[2022-10-27] MEDS: INSULIN LISPRO (NovoLOG) PER UNIT SC SCH ×4 (00:31→18:18)
[2022-10-27 00:46] LABS: HEMATOCRIT 32.4 % (36.0-47.0); HEMOGLOBIN 10.4 g/dl (12.0-15.5)
[2022-10-27] MEDS: SODIUM CHLORIDE 0.9% INJ 10 ML SYR IV PRN (02:23)
[2022-10-27 02:40] LABS: INR 2.19; PROTHROMBIN TIME 24.7 SECONDS (12.5-14.5)
[2022-10-27 06:36] LABS: HEMATOCRIT 28.3 % (36.0-47.0); HEMOGLOBIN 9.3 g/dl (12.0-15.5)
[2022-10-27 06:37] LABS: BLOOD UREA NITROGEN 27 MG/DL (9-23); CALCIUM LEVEL 7.4 MG/DL (8.3-10.6); CARBON DIOXIDE LEVEL 28 MMOL/L (20-31); CHLORIDE LEVEL 104 MMOL/L (98-107); CREATININE FOR GFR 2.67 MG/DL (0.55-1.30); GLOMERULAR FILTRATION RATE 18.4 (>39); GLUCOSE, FASTING 144 MG/DL (74-106); POTASSIUM SERUM 4.4 MMOL/L (3.5-5.1); SODIUM LEVEL 136 MMOL/L (136-145)
[2022-10-27] MEDS ORDERED: HEPARIN 1,000UNITS/ML 10ML VIAL (FOR RADIOLOGY & DIALYSIS ONLY) IV PRN (06:45)
[2022-10-27] MEDS ORDERED: SODIUM CHLORIDE 0.9% 1000ML IV PRN (06:45)
[2022-10-27] MEDS ORDERED: HEPARIN 1,000UNITS/ML 10ML VIAL (FOR RADIOLOGY & DIALYSIS ONLY) XX SCH (06:45)
[2022-10-27] MEDS ORDERED: LIDOCAINE 1% SDV 5ML VIAL SC PRN (06:45)
[2022-10-27 06:46] LABS: INR 2.03; PROTHROMBIN TIME 23.3 SECONDS (12.5-14.5)
[2022-10-27] MEDS: SUCRALFATE SUSP 1GM/10ML UD PO SCH ×4 (06:55→20:10)
[2022-10-27] MEDS ORDERED: MOM 30ML SUSPENSION UDC PO ONE (07:00)
[2022-10-27] MEDS ORDERED: MAGNESIUM CITRATE 300ML BTL PO ONE ×2 (07:00)
[2022-10-27 07:04] VITALS: BP 153/66
[2022-10-27] MEDS: LETROZOLE 2.5 MG TAB PO SCH (07:10)
[2022-10-27] MEDS: PANTOPRAZOLE 40MG VIAL IV SCH ×2 (07:10→20:12)
[2022-10-27] MEDS: **hydrALAZINE** 10 MG TAB PO SCH ×2 (07:11→20:11)
[2022-10-27] MEDS: FEBUXOSTAT 40 MG TABLET (ULORIC) PO SCH (07:11)
[2022-10-27] MEDS: FOLIC ACID 1MG TAB PO SCH (07:11)
[2022-10-27] MEDS: CARVedilol 6.25 MG TAB PO SCH ×2 (07:12→20:11)
[2022-10-27] MEDS: CYANOCOBALAMIN 500 MCG TAB PO SCH (07:13)
[2022-10-27 08:36] LABS: HEPATITIS B SURFACE ANTIGEN NEGATIVE (NEGATIVE)
[2022-10-27] MEDS: LEVEMIR (INSULIN DETEMIR) 1 UNITS/0.01ML SC SCH (09:00)
[2022-10-27] MEDS ORDERED: LIDOCAINE 2% MDV 20ML VIAL As Ordered ONE (14:24)
[2022-10-27] MEDS ORDERED: propofoL 200 MG/20 ML VIAL As Ordered ONE (14:24)
[2022-10-27] MEDS ORDERED: fentaNYL 100 MCG/2 ML INJECTION As Ordered ONE (14:24)
[2022-10-27] MEDS ORDERED: AMPICILLIN SOD 2 GM in D5W MINI-BAG PLUS 100 ML IV ONE (14:30)
[2022-10-27] MEDS ORDERED: AMPICILLIN SOD 2 GM in D5W 50 ML IV ONE (14:30)
[2022-10-27 14:42] LABS: HEMATOCRIT 35.4 % (36.0-47.0); HEMOGLOBIN 11.2 g/dl (12.0-15.5)
[2022-10-27] MEDS ORDERED: ePHEDrine SULFATE 25 MG/5 ML(5MG/ML) SYRINGE As Ordered ONE (14:50)
[2022-10-27] MEDS: SODIUM CHLORIDE 0.9% INJ 10 ML SYR IV SCH (18:15)
[2022-10-27 18:33] LABS: HEMATOCRIT 32.3 % (36.0-47.0); HEMOGLOBIN 10.3 g/dl (12.0-15.5)
[2022-10-27 19:35] LABS: CALCIUM LEVEL 9.1 MG/DL (8.3-10.6); CREATININE FOR GFR 1.47 MG/DL (0.55-1.30); GLOMERULAR FILTRATION RATE 36.7 (>39); POTASSIUM SERUM 4.2 MMOL/L (3.5-5.1)
[2022-10-27 20:00] VITALS: BP 135/80
[2022-10-27] MEDS: ATORVASTATIN 10 MG TAB PO SCH (20:11)
[2022-10-28] MEDS: SODIUM CHLORIDE 0.9% INJ 10 ML SYR IV PRN (01:32)
[2022-10-28 01:38] LABS: HEMATOCRIT 27.1 % (36.0-47.0); HEMOGLOBIN 8.7 g/dl (12.0-15.5)
[2022-10-28 06:00] VITALS: BP 130/49
[2022-10-28 06:56] LABS: HEMATOCRIT 27.5 % (36.0-47.0); HEMOGLOBIN 8.7 g/dl (12.0-15.5)
[2022-10-28 07:00] VITALS: BP 130/52
[2022-10-28 07:09] LABS: INR 1.63; PROTHROMBIN TIME 19.6 SECONDS (12.5-14.5)
[2022-10-28 07:32] LABS: CALCIUM LEVEL 7.9 MG/DL (8.3-10.6); CREATININE FOR GFR 2.14 MG/DL (0.55-1.30); GLOMERULAR FILTRATION RATE 23.8 (>39); POTASSIUM SERUM 4.4 MMOL/L (3.5-5.1)
[2022-10-28] MEDS: SUCRALFATE SUSP 1GM/10ML UD PO SCH (07:56)
[2022-10-28] MEDS: INSULIN LISPRO (NovoLOG) PER UNIT SC SCH ×4 (07:56→20:43)
[2022-10-28 08:00] VITALS: BP 130/52
[2022-10-28] MEDS: LEVEMIR (INSULIN DETEMIR) 1 UNITS/0.01ML SC SCH (08:14)
[2022-10-28] MEDS ORDERED: HEPARIN SOD (PORCINE) 5000UNITS/ML 1ML VIAL/SYRINGE IV ONE (08:30)
[2022-10-28] MEDS: FEBUXOSTAT 40 MG TABLET (ULORIC) PO SCH (08:37)
[2022-10-28] MEDS: FOLIC ACID 1MG TAB PO SCH (08:39)
[2022-10-28] MEDS: **hydrALAZINE** 10 MG TAB PO SCH (08:40)
[2022-10-28] MEDS: CARVedilol 6.25 MG TAB PO SCH ×2 (08:41→20:06)
[2022-10-28] MEDS: CYANOCOBALAMIN 500 MCG TAB PO SCH (08:41)
[2022-10-28] MEDS: LETROZOLE 2.5 MG TAB PO SCH (08:42)
[2022-10-28] MEDS: HEPARIN DRIP 25,000 UNITS in IV 1 EA IV SCH (09:14)
[2022-10-28] MEDS: SODIUM CHLORIDE 0.9% INJ 10 ML SYR IV SCH (09:24)
[2022-10-28] MEDS: PANTOPRAZOLE 40MG VIAL IV SCH ×2 (09:24→20:00)
[2022-10-28 14:00] VITALS: BP 132/48
[2022-10-28 16:50] LABS: HEMATOCRIT 27.2 % (36.0-47.0); HEMOGLOBIN 8.7 g/dl (12.0-15.5)
[2022-10-28] MEDS: ATORVASTATIN 10 MG TAB PO SCH (20:00)
[2022-10-28 21:44] VITALS: BP 118/43
[2022-10-28 22:33] LABS: CALCIUM LEVEL 7.5 MG/DL (8.3-10.6); CREATININE FOR GFR 2.67 MG/DL (0.55-1.30); GLOMERULAR FILTRATION RATE 18.4 (>39); POTASSIUM SERUM 4.5 MMOL/L (3.5-5.1)
[2022-10-29 05:05] LABS: HEMATOCRIT 27.2 % (36.0-47.0); HEMOGLOBIN 8.6 g/dl (12.0-15.5); MEAN CORPUSCULAR HEMOGLOBIN 29.8 pg (27.0-33.0); MEAN CORPUSCULAR HGB CONC 31.6 g/dl (32.0-36.5); MEAN CORPUSCULAR VOLUME 94.1 fl (80.0-96.0); PLATELET COUNT, AUTOMATED 188 10^3/uL (150-450); RED BLOOD COUNT 2.89 10^6/uL (4.00-5.40)
[2022-10-29 05:08] LABS: INR 1.22; PROTHROMBIN TIME 15.7 SECONDS (12.5-14.5)
[2022-10-29 05:09] LABS: PARTIAL THROMBOPLASTIN TIME 38.3 SECONDS (24.8-34.2)
[2022-10-29 05:28] LABS: CALCIUM LEVEL 7.8 MG/DL (8.3-10.6); CREATININE FOR GFR 3.1 MG/DL (0.55-1.30); GLOMERULAR FILTRATION RATE 15.5 (>39); POTASSIUM SERUM 4.7 MMOL/L (3.5-5.1)
[2022-10-29 06:00] VITALS: BP 97/33
[2022-10-29 06:55] VITALS: BP 108/0
[2022-10-29] MEDS ORDERED: MIDODRINE 5 MG TAB PO ONE (07:10)
[2022-10-29] MEDS ORDERED: NS 1,000 ML IV ONE (07:10)
[2022-10-29 07:48] VITALS: BP 156/58
[2022-10-29] MEDS: INSULIN LISPRO (NovoLOG) PER UNIT SC SCH ×4 (09:01→21:00)
[2022-10-29] MEDS: PANTOPRAZOLE 40MG VIAL IV SCH ×2 (09:01→20:56)
[2022-10-29] MEDS: CYANOCOBALAMIN 500 MCG TAB PO SCH (09:01)
[2022-10-29] MEDS: LEVEMIR (INSULIN DETEMIR) 1 UNITS/0.01ML SC SCH (09:02)
[2022-10-29] MEDS: LETROZOLE 2.5 MG TAB PO SCH (09:02)
[2022-10-29] MEDS: lisinopriL 5 MG TAB PO SCH ×2 (09:02→20:58)
[2022-10-29] MEDS: CARVedilol 6.25 MG TAB PO SCH ×2 (09:02→20:57)
[2022-10-29] MEDS: FOLIC ACID 1MG TAB PO SCH (09:03)
[2022-10-29] MEDS: SODIUM CHLORIDE 0.9% INJ 10 ML SYR IV SCH (09:03)
[2022-10-29 09:33] LABS: URIC ACID 1.5 MG/DL (3.1-7.8)
[2022-10-29] MEDS: FEBUXOSTAT 40 MG TABLET (ULORIC) PO SCH (10:49)
[2022-10-29] MEDS: HEPARIN SOD (PORCINE) 5000UNITS/ML 1ML VIAL/SYRINGE IV PRN (12:14)
[2022-10-29 14:00] VITALS: BP 137/44
[2022-10-29] MEDS ORDERED: WARFARIN SOD 5MG TAB PO SCH (17:00)
[2022-10-29 20:20] VITALS: BP 132/43
[2022-10-29] MEDS: ATORVASTATIN 10 MG TAB PO SCH (20:57)
[2022-10-30] VITALS (8 sets, daily range): BP systolic 108–135; BP diastolic 43–48
[2022-10-30 04:50] LABS: HEMATOCRIT 23.8 % (36.0-47.0); HEMOGLOBIN 7.5 g/dl (12.0-15.5); MEAN CORPUSCULAR HEMOGLOBIN 29.6 pg (27.0-33.0); MEAN CORPUSCULAR HGB CONC 31.5 g/dl (32.0-36.5); MEAN CORPUSCULAR VOLUME 94.1 fl (80.0-96.0); PLATELET COUNT, AUTOMATED 180 10^3/uL (150-450); RED BLOOD COUNT 2.53 10^6/uL (4.00-5.40); WHITE BLOOD COUNT 6.8 10^3/uL (4.0-10.0)
[2022-10-30 05:00] LABS: INR 1.21; PROTHROMBIN TIME 15.6 SECONDS (12.5-14.5)
[2022-10-30] MEDS: PANTOPRAZOLE 40MG VIAL IV SCH ×2 (05:47→20:19)
[2022-10-30] MEDS: FOLIC ACID 1MG TAB PO SCH (05:47)
[2022-10-30] MEDS: FEBUXOSTAT 40 MG TABLET (ULORIC) PO SCH (05:48)
[2022-10-30] MEDS: lisinopriL 5 MG TAB PO SCH ×2 (05:48→19:45)
[2022-10-30] MEDS: CYANOCOBALAMIN 500 MCG TAB PO SCH (05:48)
[2022-10-30] MEDS: LETROZOLE 2.5 MG TAB PO SCH (05:48)
[2022-10-30] MEDS: CARVedilol 6.25 MG TAB PO SCH ×2 (05:51→20:20)
[2022-10-30] MEDS: SODIUM CHLORIDE 0.9% INJ 10 ML SYR IV SCH (05:51)
[2022-10-30] MEDS ORDERED: SODIUM CHLORIDE 0.9% 1000ML IV PRN (06:00)
[2022-10-30] MEDS ORDERED: HEPARIN 1,000UNITS/ML 10ML VIAL (FOR RADIOLOGY & DIALYSIS ONLY) XX SCH (06:00)
[2022-10-30] MEDS ORDERED: HEPARIN 1,000UNITS/ML 10ML VIAL (FOR RADIOLOGY & DIALYSIS ONLY) IV PRN (06:00)
[2022-10-30] MEDS: HEPARIN DRIP 25,000 UNITS in IV 1 EA IV SCH ×2 (06:17→07:54)
[2022-10-30] MEDS: INSULIN LISPRO (NovoLOG) PER UNIT SC SCH ×4 (07:14→20:09)
[2022-10-30] MEDS: LEVEMIR (INSULIN DETEMIR) 1 UNITS/0.01ML SC SCH (07:14)
[2022-10-30] MEDS: MAGNESIUM OXIDE 400MG TAB (MAG-OX) PO SCH ×2 (12:01→20:19)
[2022-10-30] MEDS: VITAMIN D 1,000 INTERNATIONAL UNITS TABLET PO SCH (12:02)
[2022-10-30 12:37] LABS: HEMATOCRIT 24.9 % (36.0-47.0)
[2022-10-30] MEDS: TORSEMIDE 20 MG TAB PO SCH (14:23)
[2022-10-30] MEDS: WARFARIN SOD 3MG TAB PO SCH (17:07)
[2022-10-30] MEDS: ATORVASTATIN 10 MG TAB PO SCH (20:20)
[2022-10-30] MEDS: SODIUM CHLORIDE 0.9% INJ 10 ML SYR IV PRN (20:24)
[2022-10-30 23:02] LABS: HEMATOCRIT 27.3 % (36.0-47.0); HEMOGLOBIN 8.7 g/dl (12.0-15.5)
[2022-10-31 01:41] LABS: INR 1.27; PROTHROMBIN TIME 16.2 SECONDS (12.5-14.5)
[2022-10-31 01:47] LABS: PARTIAL THROMBOPLASTIN TIME 157.4 SECONDS (24.8-34.2)
[2022-10-31 05:20] VITALS: BP 121/42
[2022-10-31 05:26] LABS: HEMATOCRIT 26.9 % (36.0-47.0); HEMOGLOBIN 8.4 g/dl (12.0-15.5); MEAN CORPUSCULAR HEMOGLOBIN 29.3 pg (27.0-33.0); MEAN CORPUSCULAR HGB CONC 31.2 g/dl (32.0-36.5); MEAN CORPUSCULAR VOLUME 93.7 fl (80.0-96.0); PLATELET COUNT, AUTOMATED 171 10^3/uL (150-450); RED BLOOD COUNT 2.87 10^6/uL (4.00-5.40); WHITE BLOOD COUNT 5.5 10^3/uL (4.0-10.0)
[2022-10-31] MEDS ORDERED: MIDAZOLAM INJ 2MG/2ML VIAL As Ordered ONE (07:13)
[2022-10-31] MEDS ORDERED: fentaNYL 100 MCG/2 ML INJECTION As Ordered ONE (07:13)
[2022-10-31] MEDS ORDERED: diphenhydrAMINE 50MG/ML VIAL As Ordered ONE (07:13)
[2022-10-31] MEDS ORDERED: ISOVUE-300 61% 50ML VIAL As Ordered ONE (07:13)
[2022-10-31] MEDS ORDERED: HEPARIN 1,000UNITS/ML 10ML VIAL (FOR RADIOLOGY & DIALYSIS ONLY) As Ordered ONE (07:14)
[2022-10-31] MEDS ORDERED: LIDOCAINE 1% MDV 20ML VIAL As Ordered ONE (07:14)
[2022-10-31] MEDS: INSULIN LISPRO (NovoLOG) PER UNIT SC SCH ×4 (07:30→21:00)
[2022-10-31] MEDS ORDERED: ceFAZolin 2 GM/D5W 50 ML IV BAG As Ordered ONE (07:53)
[2022-10-31] MEDS: LEVEMIR (INSULIN DETEMIR) 1 UNITS/0.01ML SC SCH (09:50)
[2022-10-31] MEDS: PANTOPRAZOLE 40MG VIAL IV SCH ×2 (09:50→21:18)
[2022-10-31] MEDS: FEBUXOSTAT 40 MG TABLET (ULORIC) PO SCH (09:50)
[2022-10-31] MEDS: TORSEMIDE 20 MG TAB PO SCH ×2 (09:50→12:13)
[2022-10-31] MEDS: VITAMIN D 1,000 INTERNATIONAL UNITS TABLET PO SCH (09:51)
[2022-10-31] MEDS: lisinopriL 5 MG TAB PO SCH ×2 (09:51→21:00)
[2022-10-31] MEDS: FOLIC ACID 1MG TAB PO SCH (09:51)
[2022-10-31] MEDS: CARVedilol 6.25 MG TAB PO SCH ×2 (09:53→21:18)
[2022-10-31] MEDS: MAGNESIUM OXIDE 400MG TAB (MAG-OX) PO SCH ×2 (09:54→21:17)
[2022-10-31] MEDS: CYANOCOBALAMIN 500 MCG TAB PO SCH (09:54)
[2022-10-31] MEDS: LETROZOLE 2.5 MG TAB PO SCH (09:55)
[2022-10-31] MEDS: SODIUM CHLORIDE 0.9% INJ 10 ML SYR IV SCH (09:56)
[2022-10-31 10:50] LABS: INR 1.26; PROTHROMBIN TIME 16.1 SECONDS (12.5-14.5)
[2022-10-31] MEDS: HEPARIN SOD (PORCINE) 5000UNITS/ML 1ML VIAL/SYRINGE IV PRN (12:07)
[2022-10-31 14:00] VITALS: BP 144/46
[2022-10-31] MEDS: WARFARIN SOD 3MG TAB PO SCH (17:23)
[2022-10-31] MEDS: SODIUM CHLORIDE 0.9% INJ 10 ML SYR IV PRN ×2 (18:44→21:18)
[2022-10-31 19:16] LABS: INR 1.35; PROTHROMBIN TIME 16.9 SECONDS (12.5-14.5)
[2022-10-31 19:18] LABS: PARTIAL THROMBOPLASTIN TIME 97.7 SECONDS (24.8-34.2)
[2022-10-31 21:00] VITALS: BP 144/46
[2022-10-31] MEDS: ATORVASTATIN 10 MG TAB PO SCH (21:17)
[2022-11-01] MEDS: SODIUM CHLORIDE 0.9% INJ 10 ML SYR IV PRN ×4 (00:45→20:45)
[2022-11-01] MEDS: HEPARIN DRIP 25,000 UNITS in IV 1 EA IV SCH (03:45)
[2022-11-01 05:30] VITALS: BP 114/82
[2022-11-01 05:39] LABS: HEMATOCRIT 24.1 % (36.0-47.0); HEMOGLOBIN 7.8 g/dl (12.0-15.5); MEAN CORPUSCULAR HGB CONC 32.4 g/dl (32.0-36.5); MEAN CORPUSCULAR VOLUME 92.7 fl (80.0-96.0); PLATELET COUNT, AUTOMATED 164 10^3/uL (150-450); WHITE BLOOD COUNT 4.8 10^3/uL (4.0-10.0)
[2022-11-01 05:50] LABS: INR 1.67
[2022-11-01] MEDS ORDERED: SODIUM CHLORIDE 0.9% 1000ML IV PRN (06:00)
[2022-11-01] MEDS ORDERED: LIDOCAINE 1% SDV 5ML VIAL SC PRN (06:00)
[2022-11-01] MEDS ORDERED: HEPARIN 1,000UNITS/ML 10ML VIAL (FOR RADIOLOGY & DIALYSIS ONLY) XX SCH (06:00)
[2022-11-01] MEDS ORDERED: HEPARIN 1,000UNITS/ML 10ML VIAL (FOR RADIOLOGY & DIALYSIS ONLY) IV PRN (06:00)
[2022-11-01] MEDS: CARVedilol 6.25 MG TAB PO SCH ×2 (06:02→20:49)
[2022-11-01] MEDS: lisinopriL 5 MG TAB PO SCH ×2 (06:03→20:44)
[2022-11-01] MEDS: LETROZOLE 2.5 MG TAB PO SCH (06:21)
[2022-11-01] MEDS: FEBUXOSTAT 40 MG TABLET (ULORIC) PO SCH (06:22)
[2022-11-01] MEDS: FOLIC ACID 1MG TAB PO SCH (06:22)
[2022-11-01] MEDS: CYANOCOBALAMIN 500 MCG TAB PO SCH (06:22)
[2022-11-01] MEDS: MAGNESIUM OXIDE 400MG TAB (MAG-OX) PO SCH ×2 (06:22→20:43)
[2022-11-01] MEDS: VITAMIN D 1,000 INTERNATIONAL UNITS TABLET PO SCH (06:23)
[2022-11-01 06:44] LABS: CALCIUM LEVEL 7.8 MG/DL (8.3-10.6); CREATININE FOR GFR 3.23 MG/DL (0.55-1.30); GLOMERULAR FILTRATION RATE 14.8 (>39); POTASSIUM SERUM 5.8 MMOL/L (3.5-5.1)
[2022-11-01] MEDS: LEVEMIR (INSULIN DETEMIR) 1 UNITS/0.01ML SC SCH (08:03)
[2022-11-01] MEDS: INSULIN LISPRO (NovoLOG) PER UNIT SC SCH ×3 (08:03→16:56)
[2022-11-01] MEDS: PANTOPRAZOLE 40MG VIAL IV SCH ×2 (08:08→20:43)
[2022-11-01] MEDS: SODIUM CHLORIDE 0.9% INJ 10 ML SYR IV SCH (08:09)
[2022-11-01] MEDS: TORSEMIDE 20 MG TAB PO SCH (13:06)
[2022-11-01] MEDS: WARFARIN SOD 3MG TAB PO SCH (16:56)
[2022-11-01 17:36] LABS: INR 1.56
[2022-11-01 17:38] LABS: PARTIAL THROMBOPLASTIN TIME 64.3 SECONDS (24.8-34.2)
[2022-11-01] MEDS: ATORVASTATIN 10 MG TAB PO SCH (20:43)
[2022-11-01 21:05] VITALS: BP 124/40
[2022-11-02] MEDS: SODIUM CHLORIDE 0.9% INJ 10 ML SYR IV PRN (00:12)
[2022-11-02 00:53] LABS: CALCIUM LEVEL 7.9 MG/DL (8.3-10.6); CREATININE FOR GFR 2.18 MG/DL (0.55-1.30); GLOMERULAR FILTRATION RATE 23.3 (>39); HEMATOCRIT 25.5 % (36.0-47.0); HEMOGLOBIN 8.2 g/dl (12.0-15.5); POTASSIUM SERUM 4.4 MMOL/L (3.5-5.1)
[2022-11-02] MEDS: INSULIN LISPRO (NovoLOG) PER UNIT SC SCH ×4 (05:06→18:00)
[2022-11-02 06:00] VITALS: BP 114/41
[2022-11-02] MEDS: SODIUM CHLORIDE 0.9% INJ 10 ML SYR IV SCH (07:56)
[2022-11-02 08:00] VITALS: BP 138/112
[2022-11-02 08:19] LABS: HEMATOCRIT 24.6 % (36.0-47.0); HEMOGLOBIN 7.9 g/dl (12.0-15.5); MEAN CORPUSCULAR HEMOGLOBIN 29.9 pg (27.0-33.0); MEAN CORPUSCULAR HGB CONC 32.1 g/dl (32.0-36.5); MEAN CORPUSCULAR VOLUME 93.2 fl (80.0-96.0); PLATELET COUNT, AUTOMATED 168 10^3/uL (150-450); RED BLOOD COUNT 2.64 10^6/uL (4.00-5.40); WHITE BLOOD COUNT 4.1 10^3/uL (4.0-10.0)
[2022-11-02 08:36] LABS: INR 1.79; PROTHROMBIN TIME 21.1 SECONDS (12.5-14.5)
[2022-11-02 09:29] LABS: MAGNESIUM LEVEL 1.4 MG/DL (1.8-2.4)
[2022-11-02 09:30] LABS: CALCIUM LEVEL 7.9 MG/DL (8.3-10.6); CREATININE FOR GFR 2.39 MG/DL (0.55-1.30); GLOMERULAR FILTRATION RATE 20.9 (>39); PHOSPHORUS LEVEL 3.1 MG/DL (2.4-5.1); POTASSIUM SERUM 4.7 MMOL/L (3.5-5.1)
[2022-11-02] MEDS ORDERED: E-Z-GAS II EFFERVESCENT PACKET (SODIUM BICARB./CITRIC ACID/SIMETHICONE) As Ordered ONE (09:30)
[2022-11-02] MEDS ORDERED: E-Z-PAQUE 96% w/w SUSP 176GM BTL As Ordered ONE (09:30)
[2022-11-02] MEDS ORDERED: E-Z-HD 98% w/w 340GM SUSP BTL As Ordered ONE (09:30)
[2022-11-02] MEDS: PANTOPRAZOLE 40MG VIAL IV SCH ×2 (09:39→22:12)
[2022-11-02] MEDS: LEVEMIR (INSULIN DETEMIR) 1 UNITS/0.01ML SC SCH (09:40)
[2022-11-02] MEDS: FOLIC ACID 1MG TAB PO SCH (09:40)
[2022-11-02] MEDS: DOCUSATE SODIUM 100MG CAPSULE PO SCH ×2 (09:40→22:12)
[2022-11-02] MEDS: MAGNESIUM OXIDE 400MG TAB (MAG-OX) PO SCH ×2 (09:40→22:12)
[2022-11-02] MEDS: LETROZOLE 2.5 MG TAB PO SCH (09:41)
[2022-11-02] MEDS: CYANOCOBALAMIN 500 MCG TAB PO SCH (09:41)
[2022-11-02] MEDS: lisinopriL 5 MG TAB PO SCH ×2 (09:42→21:00)
[2022-11-02] MEDS: CARVedilol 6.25 MG TAB PO SCH ×2 (09:49→22:13)
[2022-11-02] MEDS: FEBUXOSTAT 40 MG TABLET (ULORIC) PO SCH (09:59)
[2022-11-02] MEDS: TORSEMIDE 20 MG TAB PO SCH ×2 (09:59→12:21)
[2022-11-02 14:24] VITALS: BP 132/82
[2022-11-02] MEDS: HEPARIN DRIP 25,000 UNITS in IV 1 EA IV SCH ×2 (15:20→21:03)
[2022-11-02] MEDS: WARFARIN SOD 7.5MG TAB PO SCH (17:32)
[2022-11-02 20:53] VITALS: BP 126/53
[2022-11-02] MEDS: ATORVASTATIN 10 MG TAB PO SCH (22:12)
[2022-11-03] MEDS: HEPARIN DRIP 25,000 UNITS in IV 1 EA IV SCH (03:14)
[2022-11-03] MEDS ORDERED: HEPARIN 1,000UNITS/ML 10ML VIAL (FOR RADIOLOGY & DIALYSIS ONLY) XX SCH (06:00)
[2022-11-03] MEDS: INSULIN LISPRO (NovoLOG) PER UNIT SC SCH ×5 (06:00→22:06)
[2022-11-03] MEDS ORDERED: HEPARIN 1,000UNITS/ML 10ML VIAL (FOR RADIOLOGY & DIALYSIS ONLY) IV PRN (06:00)
[2022-11-03] MEDS ORDERED: SODIUM CHLORIDE 0.9% 1000ML IV PRN (06:00)
[2022-11-03] MEDS: lisinopriL 5 MG TAB PO SCH ×2 (06:24→22:05)
[2022-11-03] MEDS: LETROZOLE 2.5 MG TAB PO SCH (06:32)
[2022-11-03] MEDS: MAGNESIUM OXIDE 400MG TAB (MAG-OX) PO SCH ×2 (06:33→22:06)
[2022-11-03] MEDS: FOLIC ACID 1MG TAB PO SCH (06:33)
[2022-11-03] MEDS: CYANOCOBALAMIN 500 MCG TAB PO SCH (06:33)
[2022-11-03] MEDS: DOCUSATE SODIUM 100MG CAPSULE PO SCH ×2 (06:33→21:00)
[2022-11-03] MEDS: PANTOPRAZOLE 40MG VIAL IV SCH ×2 (06:33→22:06)
[2022-11-03] MEDS: FEBUXOSTAT 40 MG TABLET (ULORIC) PO SCH (06:33)
[2022-11-03] MEDS: SODIUM CHLORIDE 0.9% INJ 10 ML SYR IV SCH (06:34)
[2022-11-03] MEDS: CARVedilol 6.25 MG TAB PO SCH ×2 (07:07→22:05)
[2022-11-03 07:20] LABS: HEMOGLOBIN 7.7 g/dl (12.0-15.5); MEAN CORPUSCULAR HEMOGLOBIN 29.7 pg (27.0-33.0); MEAN CORPUSCULAR HGB CONC 32.1 g/dl (32.0-36.5); MEAN CORPUSCULAR VOLUME 92.7 fl (80.0-96.0); PLATELET COUNT, AUTOMATED 179 10^3/uL (150-450); RED BLOOD COUNT 2.59 10^6/uL (4.00-5.40); WHITE BLOOD COUNT 4.3 10^3/uL (4.0-10.0)
[2022-11-03 07:38] LABS: INR 2.13; PROTHROMBIN TIME 24.2 SECONDS (12.5-14.5)
[2022-11-03] MEDS: LEVEMIR (INSULIN DETEMIR) 1 UNITS/0.01ML SC SCH (09:00)
[2022-11-03 10:08] LABS: CALCIUM LEVEL 8.1 MG/DL (8.3-10.6); CREATININE FOR GFR 2.88 MG/DL (0.55-1.30); GLOMERULAR FILTRATION RATE 16.9 (>39); POTASSIUM SERUM 5.1 MMOL/L (3.5-5.1)
[2022-11-03 12:27] VITALS: BP 147/46
[2022-11-03] MEDS: TORSEMIDE 20 MG TAB PO SCH (14:12)
[2022-11-03] MEDS: WARFARIN SOD 7.5MG TAB PO SCH (18:02)
[2022-11-03 21:10] VITALS: BP 102/35
[2022-11-03] MEDS: ATORVASTATIN 10 MG TAB PO SCH (22:06)
[2022-11-04] VITALS (11 sets, daily range): BP systolic 117–178; BP diastolic 36–76
[2022-11-04] MEDS: SODIUM CHLORIDE 0.9% INJ 10 ML SYR IV SCH (06:01)
[2022-11-04 06:18] LABS: HEMATOCRIT 21.2 % (36.0-47.0); MEAN CORPUSCULAR HEMOGLOBIN 29.7 pg (27.0-33.0); MEAN CORPUSCULAR HGB CONC 32.1 g/dl (32.0-36.5); MEAN CORPUSCULAR VOLUME 92.6 fl (80.0-96.0); PLATELET COUNT, AUTOMATED 158 10^3/uL (150-450); RED BLOOD COUNT 2.29 10^6/uL (4.00-5.40); WHITE BLOOD COUNT 3.6 10^3/uL (4.0-10.0)
[2022-11-04 06:25] LABS: HEMOGLOBIN 6.8 g/dl (12.0-15.5)
[2022-11-04 06:32] LABS: INR 2.7; PROTHROMBIN TIME 29.1 SECONDS (12.5-14.5)
[2022-11-04 06:46] LABS: MAGNESIUM LEVEL 1.4 MG/DL (1.8-2.4)
[2022-11-04 06:49] LABS: CALCIUM LEVEL 8.1 MG/DL (8.3-10.6); CREATININE FOR GFR 2.22 MG/DL (0.55-1.30); GLOMERULAR FILTRATION RATE 22.8 (>39); POTASSIUM SERUM 3.9 MMOL/L (3.5-5.1)
[2022-11-04] MEDS: LEVEMIR (INSULIN DETEMIR) 1 UNITS/0.01ML SC SCH (08:55)
[2022-11-04] MEDS: INSULIN LISPRO (NovoLOG) PER UNIT SC SCH ×4 (08:55→20:20)
[2022-11-04] MEDS: PANTOPRAZOLE 40MG VIAL IV SCH ×2 (08:55→20:19)
[2022-11-04] MEDS: CYANOCOBALAMIN 500 MCG TAB PO SCH (08:56)
[2022-11-04] MEDS: MAGNESIUM OXIDE 400MG TAB (MAG-OX) PO SCH ×2 (08:56→20:19)
[2022-11-04] MEDS: FEBUXOSTAT 40 MG TABLET (ULORIC) PO SCH (08:56)
[2022-11-04] MEDS: FOLIC ACID 1MG TAB PO SCH (08:56)
[2022-11-04] MEDS: lisinopriL 5 MG TAB PO SCH ×2 (08:57→20:20)
[2022-11-04] MEDS: LETROZOLE 2.5 MG TAB PO SCH (08:57)
[2022-11-04] MEDS: CARVedilol 6.25 MG TAB PO SCH ×2 (08:57→20:19)
[2022-11-04] MEDS: DOCUSATE SODIUM 100MG CAPSULE PO SCH ×2 (09:00→20:10)
[2022-11-04] MEDS: TORSEMIDE 20 MG TAB PO SCH ×2 (09:02→12:33)
[2022-11-04] MEDS: WARFARIN SOD 5MG TAB PO SCH (17:59)
[2022-11-04] MEDS: ATORVASTATIN 10 MG TAB PO SCH (20:19)
[2022-11-04] MEDS: HEPARIN DRIP 25,000 UNITS in IV 1 EA IV SCH (23:41)
[2022-11-05 05:00] VITALS: BP 149/47
[2022-11-05] MEDS: SODIUM CHLORIDE 0.9% INJ 10 ML SYR IV SCH (06:00)
[2022-11-05 06:17] LABS: HEMOGLOBIN 7.6 g/dl (12.0-15.5); MEAN CORPUSCULAR HEMOGLOBIN 30.2 pg (27.0-33.0); MEAN CORPUSCULAR VOLUME 91.3 fl (80.0-96.0); PLATELET COUNT, AUTOMATED 151 10^3/uL (150-450); RED BLOOD COUNT 2.52 10^6/uL (4.00-5.40); WHITE BLOOD COUNT 4.1 10^3/uL (4.0-10.0)
[2022-11-05 06:36] LABS: INR 2.65; PROTHROMBIN TIME 28.7 SECONDS (12.5-14.5)
[2022-11-05 06:37] LABS: PARTIAL THROMBOPLASTIN TIME 82.2 SECONDS (24.8-34.2)
[2022-11-05 06:48] LABS: MAGNESIUM LEVEL 1.4 MG/DL (1.8-2.4)
[2022-11-05 06:51] LABS: CALCIUM LEVEL 8.2 MG/DL (8.3-10.6); CREATININE FOR GFR 2.97 MG/DL (0.55-1.30); GLOMERULAR FILTRATION RATE 16.3 (>39); POTASSIUM SERUM 4.5 MMOL/L (3.5-5.1)
[2022-11-05] MEDS: PANTOPRAZOLE 40MG VIAL IV SCH ×2 (08:50→22:07)
[2022-11-05] MEDS: TORSEMIDE 20 MG TAB PO SCH ×2 (08:50→12:25)
[2022-11-05] MEDS: FOLIC ACID 1MG TAB PO SCH (08:50)
[2022-11-05] MEDS: LETROZOLE 2.5 MG TAB PO SCH (08:51)
[2022-11-05] MEDS: CYANOCOBALAMIN 500 MCG TAB PO SCH (08:51)
[2022-11-05] MEDS: DOCUSATE SODIUM 100MG CAPSULE PO SCH ×2 (08:52→21:00)
[2022-11-05] MEDS: INSULIN LISPRO (NovoLOG) PER UNIT SC SCH ×4 (08:52→21:00)
[2022-11-05] MEDS: FEBUXOSTAT 40 MG TABLET (ULORIC) PO SCH (08:59)
[2022-11-05] MEDS: MAGNESIUM OXIDE 400MG TAB (MAG-OX) PO SCH ×2 (08:59→22:07)
[2022-11-05] MEDS: lisinopriL 5 MG TAB PO SCH ×3 (09:00→22:11)
[2022-11-05] MEDS: LEVEMIR (INSULIN DETEMIR) 1 UNITS/0.01ML SC SCH (09:02)
[2022-11-05] MEDS: CARVedilol 6.25 MG TAB PO SCH ×2 (09:04→21:00)
[2022-11-05 13:20] VITALS: BP 170/70
[2022-11-05] MEDS: WARFARIN SOD 5MG TAB PO SCH (18:06)
[2022-11-05 18:19] VITALS: BP 168/52
[2022-11-05 21:11] VITALS: BP 156/53
[2022-11-05] MEDS: ATORVASTATIN 10 MG TAB PO SCH (22:07)
[2022-11-05] MEDS: SODIUM CHLORIDE 0.9% INJ 10 ML SYR IV PRN (22:19)
[2022-11-06] VITALS (7 sets, daily range): BP systolic 96–191; BP diastolic 42–64
[2022-11-06] MEDS: SODIUM CHLORIDE 0.9% INJ 10 ML SYR IV SCH (05:54)
[2022-11-06 06:20] LABS: HEMATOCRIT 23.3 % (36.0-47.0); HEMOGLOBIN 7.4 g/dl (12.0-15.5); MEAN CORPUSCULAR HEMOGLOBIN 29.5 pg (27.0-33.0); MEAN CORPUSCULAR HGB CONC 31.8 g/dl (32.0-36.5); MEAN CORPUSCULAR VOLUME 92.8 fl (80.0-96.0); PLATELET COUNT, AUTOMATED 163 10^3/uL (150-450); RED BLOOD COUNT 2.51 10^6/uL (4.00-5.40); WHITE BLOOD COUNT 4.6 10^3/uL (4.0-10.0)
[2022-11-06] MEDS: INSULIN LISPRO (NovoLOG) PER UNIT SC SCH ×4 (06:28→21:00)
[2022-11-06] MEDS: LEVEMIR (INSULIN DETEMIR) 1 UNITS/0.01ML SC SCH (06:28)
[2022-11-06] MEDS: MAGNESIUM OXIDE 400MG TAB (MAG-OX) PO SCH ×2 (06:29→21:05)
[2022-11-06] MEDS: CYANOCOBALAMIN 500 MCG TAB PO SCH (06:29)
[2022-11-06] MEDS: FOLIC ACID 1MG TAB PO SCH (06:29)
[2022-11-06] MEDS: LETROZOLE 2.5 MG TAB PO SCH (06:29)
[2022-11-06] MEDS: DOCUSATE SODIUM 100MG CAPSULE PO SCH ×2 (06:29→21:04)
[2022-11-06] MEDS: lisinopriL 5 MG TAB PO SCH ×2 (06:31→21:05)
[2022-11-06] MEDS: CARVedilol 6.25 MG TAB PO SCH ×3 (06:31→21:04)
[2022-11-06 06:35] LABS: INR 2.84; PROTHROMBIN TIME 30.3 SECONDS (12.5-14.5)
[2022-11-06] MEDS: PANTOPRAZOLE 40MG VIAL IV SCH ×2 (06:36→21:04)
[2022-11-06] MEDS: FEBUXOSTAT 40 MG TABLET (ULORIC) PO SCH (06:36)
[2022-11-06 06:50] LABS: MAGNESIUM LEVEL 1.4 MG/DL (1.8-2.4)
[2022-11-06] MEDS ORDERED: HEPARIN 1,000UNITS/ML 10ML VIAL (FOR RADIOLOGY & DIALYSIS ONLY) XX SCH (06:50)
[2022-11-06] MEDS ORDERED: HEPARIN 1,000UNITS/ML 10ML VIAL (FOR RADIOLOGY & DIALYSIS ONLY) IV PRN (06:50)
[2022-11-06] MEDS ORDERED: SODIUM CHLORIDE 0.9% 1000ML IV PRN (06:50)
[2022-11-06] MEDS ORDERED: LIDOCAINE 1% SDV 5ML VIAL SC PRN (06:50)
[2022-11-06 06:52] LABS: CALCIUM LEVEL 8.3 MG/DL (8.3-10.6); CREATININE FOR GFR 3.19 MG/DL (0.55-1.30); POTASSIUM SERUM 5.2 MMOL/L (3.5-5.1)
[2022-11-06] MEDS: TORSEMIDE 20 MG TAB PO SCH (13:21)
[2022-11-06] MEDS: WARFARIN SOD 5MG TAB PO SCH (17:21)
[2022-11-06] MEDS: ATORVASTATIN 10 MG TAB PO SCH (21:05)
[2022-11-07] MEDS: SODIUM CHLORIDE 0.9% INJ 10 ML SYR IV PRN ×2 (05:53→15:20)
[2022-11-07 06:00] VITALS: BP 145/51
[2022-11-07 06:13] LABS: HEMATOCRIT 25.7 % (36.0-47.0); HEMOGLOBIN 8.2 g/dl (12.0-15.5); MEAN CORPUSCULAR HGB CONC 31.9 g/dl (32.0-36.5); MEAN CORPUSCULAR VOLUME 90.8 fl (80.0-96.0); PLATELET COUNT, AUTOMATED 170 10^3/uL (150-450); RED BLOOD COUNT 2.83 10^6/uL (4.00-5.40); WHITE BLOOD COUNT 4.9 10^3/uL (4.0-10.0)
[2022-11-07 06:30] LABS: INR 2.96; PROTHROMBIN TIME 31.3 SECONDS (12.5-14.5)
[2022-11-07] MEDS: INSULIN LISPRO (NovoLOG) PER UNIT SC SCH ×4 (07:30→20:12)
[2022-11-07 07:56] LABS: CALCIUM LEVEL 7.9 MG/DL (8.3-10.6); CREATININE FOR GFR 2.14 MG/DL (0.55-1.30); GLOMERULAR FILTRATION RATE 23.8 (>39); MAGNESIUM LEVEL 1.6 MG/DL (1.8-2.4); POTASSIUM SERUM 4.4 MMOL/L (3.5-5.1)
[2022-11-07] MEDS: PANTOPRAZOLE 40MG VIAL IV SCH ×2 (08:09→20:18)
[2022-11-07] MEDS: LEVEMIR (INSULIN DETEMIR) 1 UNITS/0.01ML SC SCH (08:09)
[2022-11-07] MEDS: CYANOCOBALAMIN 500 MCG TAB PO SCH (08:10)
[2022-11-07] MEDS: MAGNESIUM OXIDE 400MG TAB (MAG-OX) PO SCH ×2 (08:10→20:19)
[2022-11-07] MEDS: DOCUSATE SODIUM 100MG CAPSULE PO SCH ×2 (08:11→20:20)
[2022-11-07] MEDS: FOLIC ACID 1MG TAB PO SCH (08:11)
[2022-11-07] MEDS: LETROZOLE 2.5 MG TAB PO SCH (08:11)
[2022-11-07] MEDS: SODIUM CHLORIDE 0.9% INJ 10 ML SYR IV SCH (08:13)
[2022-11-07] MEDS: CARVedilol 6.25 MG TAB PO SCH ×2 (08:28→20:20)
[2022-11-07] MEDS: lisinopriL 5 MG TAB PO SCH ×2 (08:29→20:20)
[2022-11-07] MEDS: FEBUXOSTAT 40 MG TABLET (ULORIC) PO SCH (08:33)
[2022-11-07] MEDS: TORSEMIDE 20 MG TAB PO SCH ×2 (08:33→10:57)
[2022-11-07] MEDS ORDERED: MAG SULF 1GM/100ML (MAG RUN) 1 GM in IV 1 EA IV ONE (08:45)
[2022-11-07] MEDS ORDERED: LISI5TAB11 PO (08:47)
[2022-11-07 14:00] VITALS: BP 154/72
[2022-11-07] MEDS: WARFARIN SOD 5MG TAB PO SCH (17:19)
[2022-11-07] MEDS: ATORVASTATIN 10 MG TAB PO SCH (20:19)
[2022-11-07 20:20] VITALS: BP 164/58
[2022-11-08 06:23] VITALS: BP 102/32
[2022-11-08 06:43] LABS: HEMATOCRIT 23.4 % (36.0-47.0); HEMOGLOBIN 7.6 g/dl (12.0-15.5); MEAN CORPUSCULAR HEMOGLOBIN 29.5 pg (27.0-33.0); MEAN CORPUSCULAR HGB CONC 32.5 g/dl (32.0-36.5); MEAN CORPUSCULAR VOLUME 90.7 fl (80.0-96.0); PLATELET COUNT, AUTOMATED 171 10^3/uL (150-450); RED BLOOD COUNT 2.58 10^6/uL (4.00-5.40); WHITE BLOOD COUNT 4.8 10^3/uL (4.0-10.0)
[2022-11-08 06:52] LABS: INR 2.87; PROTHROMBIN TIME 30.5 SECONDS (12.5-14.5)
[2022-11-08] MEDS ORDERED: SODIUM CHLORIDE 0.9% 1000ML IV PRN (07:00)
[2022-11-08] MEDS ORDERED: LIDOCAINE 1% SDV 5ML VIAL SC PRN (07:00)
[2022-11-08] MEDS ORDERED: HEPARIN 1,000UNITS/ML 10ML VIAL (FOR RADIOLOGY & DIALYSIS ONLY) XX SCH (07:00)
[2022-11-08] MEDS ORDERED: HEPARIN 1,000UNITS/ML 10ML VIAL (FOR RADIOLOGY & DIALYSIS ONLY) IV PRN (07:00)
[2022-11-08 07:08] LABS: MAGNESIUM LEVEL 1.8 MG/DL (1.8-2.4)
[2022-11-08 07:21] LABS: CALCIUM LEVEL 8.7 MG/DL (8.3-10.6); CREATININE FOR GFR 2.78 MG/DL (0.55-1.30); GLOMERULAR FILTRATION RATE 17.6 (>39)
[2022-11-08] MEDS: PANTOPRAZOLE 40MG VIAL IV SCH ×2 (07:26→20:26)
[2022-11-08] MEDS: FOLIC ACID 1MG TAB PO SCH (07:26)
[2022-11-08] MEDS: DOCUSATE SODIUM 100MG CAPSULE PO SCH ×3 (07:26→20:26)
[2022-11-08] MEDS: LETROZOLE 2.5 MG TAB PO SCH (07:27)
[2022-11-08] MEDS: CYANOCOBALAMIN 500 MCG TAB PO SCH (07:27)
[2022-11-08] MEDS: MAGNESIUM OXIDE 400MG TAB (MAG-OX) PO SCH ×2 (07:27→20:28)
[2022-11-08] MEDS: INSULIN LISPRO (NovoLOG) PER UNIT SC SCH ×4 (07:28→21:00)
[2022-11-08] MEDS: LEVEMIR (INSULIN DETEMIR) 1 UNITS/0.01ML SC SCH (07:29)
[2022-11-08] MEDS: FEBUXOSTAT 40 MG TABLET (ULORIC) PO SCH (07:29)
[2022-11-08] MEDS: lisinopriL 5 MG TAB PO SCH ×2 (07:30→20:27)
[2022-11-08] MEDS: CARVedilol 6.25 MG TAB PO SCH ×2 (07:31→20:28)
[2022-11-08] MEDS: SODIUM CHLORIDE 0.9% INJ 10 ML SYR IV SCH (07:32)
[2022-11-08] MEDS: TORSEMIDE 20 MG TAB PO SCH (12:16)
[2022-11-08 12:19] LABS: HEMATOCRIT 28.1 % (36.0-47.0)
[2022-11-08 15:47] LABS: HEMATOCRIT 26.2 % (36.0-47.0); HEMOGLOBIN 8.5 g/dl (12.0-15.5)
[2022-11-08] MEDS ORDERED: WARFARIN SOD 2.5MG TAB PO SCH (17:00)
[2022-11-08 19:50] VITALS: BP 140/60
[2022-11-08] MEDS: ATORVASTATIN 10 MG TAB PO SCH (20:27)
[2022-11-08] MEDS: SODIUM CHLORIDE 0.9% INJ 10 ML SYR IV PRN (20:29)
[2022-11-08 21:07] LABS: HEMATOCRIT 22.6 % (36.0-47.0); HEMOGLOBIN 7.3 g/dl (12.0-15.5)
[2022-11-08 23:12] VITALS: BP 125/58
[2022-11-08 23:36] VITALS: BP 110/56
[2022-11-09 00:26] VITALS: BP 110/58
[2022-11-09 00:40] VITALS: BP 130/64
[2022-11-09] MEDS: SODIUM CHLORIDE 0.9% INJ 10 ML SYR IV PRN ×4 (02:49→21:17)
[2022-11-09 02:50] VITALS: BP 120/56
[2022-11-09 03:11] LABS: HEMATOCRIT 25.7 % (36.0-47.0); HEMOGLOBIN 8.5 g/dl (12.0-15.5)
[2022-11-09 06:00] VITALS: BP 105/55
[2022-11-09 06:25] LABS: HEMATOCRIT 25.5 % (36.0-47.0); HEMOGLOBIN 8.5 g/dl (12.0-15.5); MEAN CORPUSCULAR HGB CONC 33.3 g/dl (32.0-36.5); MEAN CORPUSCULAR VOLUME 90.1 fl (80.0-96.0); PLATELET COUNT, AUTOMATED 174 10^3/uL (150-450); RED BLOOD COUNT 2.83 10^6/uL (4.00-5.40); WHITE BLOOD COUNT 4.1 10^3/uL (4.0-10.0)
[2022-11-09 06:47] LABS: MAGNESIUM LEVEL 1.7 MG/DL (1.8-2.4)
[2022-11-09 06:48] LABS: CALCIUM LEVEL 8.3 MG/DL (8.3-10.6); CREATININE FOR GFR 1.84 MG/DL (0.55-1.30); GLOMERULAR FILTRATION RATE 28.3 (>39); POTASSIUM SERUM 4.4 MMOL/L (3.5-5.1)
[2022-11-09 07:01] LABS: INR 2.12; PROTHROMBIN TIME 24.1 SECONDS (12.5-14.5)
[2022-11-09] MEDS ORDERED: WARFARIN SOD 5MG TAB PO ONE (08:10)
[2022-11-09] MEDS ORDERED: MAG SULF 1GM/100ML (MAG RUN) 1 GM in IV 1 EA IV ONE (08:10)
[2022-11-09] MEDS: INSULIN LISPRO (NovoLOG) PER UNIT SC SCH ×4 (08:35→21:00)
[2022-11-09] MEDS: LEVEMIR (INSULIN DETEMIR) 1 UNITS/0.01ML SC SCH (08:35)
[2022-11-09] MEDS: lisinopriL 5 MG TAB PO SCH ×2 (08:36→21:33)
[2022-11-09] MEDS: SODIUM CHLORIDE 0.9% INJ 10 ML SYR IV SCH (08:36)
[2022-11-09] MEDS: LETROZOLE 2.5 MG TAB PO SCH (08:37)
[2022-11-09] MEDS: CYANOCOBALAMIN 500 MCG TAB PO SCH (08:38)
[2022-11-09] MEDS: FEBUXOSTAT 40 MG TABLET (ULORIC) PO SCH (08:38)
[2022-11-09] MEDS: DOCUSATE SODIUM 100MG CAPSULE PO SCH ×2 (08:38→21:00)
[2022-11-09] MEDS: CARVedilol 6.25 MG TAB PO SCH ×2 (08:38→21:33)
[2022-11-09] MEDS: FOLIC ACID 1MG TAB PO SCH (08:38)
[2022-11-09] MEDS: MAGNESIUM OXIDE 400MG TAB (MAG-OX) PO SCH ×2 (08:39→21:16)
[2022-11-09] MEDS: PANTOPRAZOLE 40MG VIAL IV SCH ×2 (08:42→21:16)
[2022-11-09] MEDS: TORSEMIDE 20 MG TAB PO SCH ×2 (08:42→12:00)
[2022-11-09] MEDS ORDERED: WARFARIN SOD 2.5MG TAB PO ONE (17:00)
[2022-11-09 18:51] LABS: HEMATOCRIT 27.8 % (36.0-47.0); HEMOGLOBIN 9.1 g/dl (12.0-15.5)
[2022-11-09] MEDS: ATORVASTATIN 10 MG TAB PO SCH (21:16)
[2022-11-09 21:33] VITALS: BP 146/42
[2022-11-10 05:55] LABS: HEMATOCRIT 24.3 % (36.0-47.0); HEMOGLOBIN 7.9 g/dl (12.0-15.5); MEAN CORPUSCULAR HEMOGLOBIN 29.8 pg (27.0-33.0); MEAN CORPUSCULAR HGB CONC 32.5 g/dl (32.0-36.5); MEAN CORPUSCULAR VOLUME 91.7 fl (80.0-96.0); PLATELET COUNT, AUTOMATED 179 10^3/uL (150-450); RED BLOOD COUNT 2.65 10^6/uL (4.00-5.40); WHITE BLOOD COUNT 4.8 10^3/uL (4.0-10.0)
[2022-11-10 06:00] VITALS: BP 110/38
[2022-11-10] MEDS: LEVEMIR (INSULIN DETEMIR) 1 UNITS/0.01ML SC SCH (06:02)
[2022-11-10] MEDS: INSULIN LISPRO (NovoLOG) PER UNIT SC SCH ×4 (06:02→20:41)
[2022-11-10] MEDS: DOCUSATE SODIUM 100MG CAPSULE PO SCH ×2 (06:02→20:29)
[2022-11-10] MEDS: lisinopriL 5 MG TAB PO SCH ×2 (06:03→20:34)
[2022-11-10] MEDS: FEBUXOSTAT 40 MG TABLET (ULORIC) PO SCH (06:03)
[2022-11-10] MEDS: CARVedilol 6.25 MG TAB PO SCH ×2 (06:03→20:38)
[2022-11-10] MEDS: FOLIC ACID 1MG TAB PO SCH (06:03)
[2022-11-10] MEDS: LETROZOLE 2.5 MG TAB PO SCH (06:04)
[2022-11-10] MEDS: PANTOPRAZOLE 40MG VIAL IV SCH ×2 (06:04→22:22)
[2022-11-10] MEDS: MAGNESIUM OXIDE 400MG TAB (MAG-OX) PO SCH ×2 (06:04→20:35)
[2022-11-10] MEDS: CYANOCOBALAMIN 500 MCG TAB PO SCH (06:04)
[2022-11-10] MEDS: SODIUM CHLORIDE 0.9% INJ 10 ML SYR IV SCH (06:05)
[2022-11-10 06:06] LABS: INR 1.76; PROTHROMBIN TIME 20.8 SECONDS (12.5-14.5)
[2022-11-10 06:16] LABS: MAGNESIUM LEVEL 1.9 MG/DL (1.8-2.4)
[2022-11-10 06:19] LABS: CALCIUM LEVEL 8.5 MG/DL (8.3-10.6); CREATININE FOR GFR 2.72 MG/DL (0.55-1.30)
[2022-11-10] MEDS ORDERED: LIDOCAINE 1% SDV 5ML VIAL SC PRN (07:05)
[2022-11-10] MEDS ORDERED: SODIUM CHLORIDE 0.9% 1000ML IV PRN (07:05)
[2022-11-10] MEDS ORDERED: HEPARIN 1,000UNITS/ML 10ML VIAL (FOR RADIOLOGY & DIALYSIS ONLY) IV PRN (07:05)
[2022-11-10] MEDS ORDERED: HEPARIN 1,000UNITS/ML 10ML VIAL (FOR RADIOLOGY & DIALYSIS ONLY) XX SCH (07:05)
[2022-11-10] MEDS ORDERED: HEPARIN SOD (PORCINE) 5000UNITS/ML 1ML VIAL/SYRINGE IV PRN ×2 (07:50→08:00)
[2022-11-10] MEDS ORDERED: HEPARIN SOD (PORCINE) 5000UNITS/ML 1ML VIAL/SYRINGE IV ONE (07:50)
[2022-11-10] MEDS ORDERED: HEPARIN DRIP 25,000 UNITS in IV 1 EA IV SCH (08:00)
[2022-11-10 09:13] LABS: HEMATOCRIT 25.9 % (36.0-47.0); HEMOGLOBIN 8.2 g/dl (12.0-15.5); MEAN CORPUSCULAR HEMOGLOBIN 29.1 pg (27.0-33.0); MEAN CORPUSCULAR HGB CONC 31.7 g/dl (32.0-36.5); MEAN CORPUSCULAR VOLUME 91.8 fl (80.0-96.0); PLATELET COUNT, AUTOMATED 196 10^3/uL (150-450); RED BLOOD COUNT 2.82 10^6/uL (4.00-5.40); WHITE BLOOD COUNT 4.9 10^3/uL (4.0-10.0)
[2022-11-10] MEDS ORDERED: WARFARIN SOD 5MG TAB PO SCH (17:00)
[2022-11-10] MEDS: ATORVASTATIN 10 MG TAB PO SCH (20:35)
[2022-11-10 21:30] VITALS: BP 122/40
[2022-11-11 06:00] VITALS: BP 118/42
[2022-11-11 06:44] LABS: HEMATOCRIT 22.7 % (36.0-47.0); HEMOGLOBIN 7.3 g/dl (12.0-15.5); MEAN CORPUSCULAR HEMOGLOBIN 30.2 pg (27.0-33.0); MEAN CORPUSCULAR HGB CONC 32.2 g/dl (32.0-36.5); MEAN CORPUSCULAR VOLUME 93.8 fl (80.0-96.0); PLATELET COUNT, AUTOMATED 167 10^3/uL (150-450); RED BLOOD COUNT 2.42 10^6/uL (4.00-5.40); WHITE BLOOD COUNT 4.6 10^3/uL (4.0-10.0)
[2022-11-11 06:55] LABS: INR 1.65; PROTHROMBIN TIME 19.8 SECONDS (12.5-14.5)
[2022-11-11 06:56] LABS: PARTIAL THROMBOPLASTIN TIME 38.9 SECONDS (24.8-34.2)
[2022-11-11] MEDS: DOCUSATE SODIUM 100MG CAPSULE PO SCH ×2 (09:29→20:11)
[2022-11-11] MEDS: FOLIC ACID 1MG TAB PO SCH (09:29)
[2022-11-11] MEDS: LETROZOLE 2.5 MG TAB PO SCH (09:29)
[2022-11-11] MEDS: MAGNESIUM OXIDE 400MG TAB (MAG-OX) PO SCH ×2 (09:30→20:11)
[2022-11-11] MEDS: PANTOPRAZOLE 40MG VIAL IV SCH ×2 (09:30→19:57)
[2022-11-11] MEDS: CYANOCOBALAMIN 500 MCG TAB PO SCH (09:31)
[2022-11-11] MEDS: FEBUXOSTAT 40 MG TABLET (ULORIC) PO SCH (09:31)
[2022-11-11] MEDS: lisinopriL 5 MG TAB PO SCH ×2 (09:31→20:11)
[2022-11-11] MEDS: CARVedilol 6.25 MG TAB PO SCH ×2 (09:32→20:10)
[2022-11-11] MEDS: INSULIN LISPRO (NovoLOG) PER UNIT SC SCH ×4 (09:33→20:02)
[2022-11-11] MEDS: LEVEMIR (INSULIN DETEMIR) 1 UNITS/0.01ML SC SCH (09:33)
[2022-11-11 10:17] VITALS: BP 132/42
[2022-11-11 10:32] VITALS: BP 140/40
[2022-11-11 11:03] VITALS: BP 140/42
[2022-11-11 12:14] VITALS: BP 138/50
[2022-11-11 13:34] VITALS: BP 142/38
[2022-11-11] MEDS: ATORVASTATIN 10 MG TAB PO SCH (20:11)
[2022-11-12 06:00] VITALS: BP 108/54
[2022-11-12] MEDS: INSULIN LISPRO (NovoLOG) PER UNIT SC SCH ×4 (07:47→19:52)
[2022-11-12] MEDS: PANTOPRAZOLE 40MG VIAL IV SCH ×2 (07:47→19:49)
[2022-11-12] MEDS: LEVEMIR (INSULIN DETEMIR) 1 UNITS/0.01ML SC SCH (07:47)
[2022-11-12] MEDS: CARVedilol 6.25 MG TAB PO SCH ×2 (07:49→19:51)
[2022-11-12] MEDS: CYANOCOBALAMIN 500 MCG TAB PO SCH (07:50)
[2022-11-12] MEDS: MAGNESIUM OXIDE 400MG TAB (MAG-OX) PO SCH ×2 (07:50→19:50)
[2022-11-12] MEDS: lisinopriL 5 MG TAB PO SCH ×2 (07:50→19:50)
[2022-11-12] MEDS: LETROZOLE 2.5 MG TAB PO SCH (07:50)
[2022-11-12] MEDS: FOLIC ACID 1MG TAB PO SCH (07:50)
[2022-11-12] MEDS: FEBUXOSTAT 40 MG TABLET (ULORIC) PO SCH (07:56)
[2022-11-12] MEDS: DOCUSATE SODIUM 100MG CAPSULE PO SCH ×2 (07:57→19:51)
[2022-11-12 08:57] LABS: HEMATOCRIT 26.1 % (36.0-47.0); HEMOGLOBIN 8.5 g/dl (12.0-15.5); MEAN CORPUSCULAR HEMOGLOBIN 30.2 pg (27.0-33.0); MEAN CORPUSCULAR HGB CONC 32.6 g/dl (32.0-36.5); MEAN CORPUSCULAR VOLUME 92.9 fl (80.0-96.0); PLATELET COUNT, AUTOMATED 168 10^3/uL (150-450); RED BLOOD COUNT 2.81 10^6/uL (4.00-5.40); WHITE BLOOD COUNT 5.3 10^3/uL (4.0-10.0)
[2022-11-12 09:02] LABS: CALCIUM LEVEL 8.5 MG/DL (8.3-10.6); CREATININE FOR GFR 2.89 MG/DL (0.55-1.30); GLOMERULAR FILTRATION RATE 16.8 (>39)
[2022-11-12] MEDS ORDERED: HEPARIN DRIP 25,000 UNITS in IV 1 EA IV SCH (09:45)
[2022-11-12] MEDS ORDERED: HEPARIN SOD (PORCINE) 5000UNITS/ML 1ML VIAL/SYRINGE IV PRN (09:45)
[2022-11-12 14:48] VITALS: BP 145/59
[2022-11-12] MEDS: ATORVASTATIN 10 MG TAB PO SCH (19:50)
[2022-11-12 20:00] VITALS: BP 138/42
[2022-11-13] VITALS (9 sets, daily range): BP systolic 118–166; BP diastolic 40–70
[2022-11-13 04:33] LABS: HEMATOCRIT 24.2 % (36.0-47.0); HEMOGLOBIN 7.8 g/dl (12.0-15.5); MEAN CORPUSCULAR HEMOGLOBIN 29.7 pg (27.0-33.0); MEAN CORPUSCULAR HGB CONC 32.2 g/dl (32.0-36.5); PLATELET COUNT, AUTOMATED 170 10^3/uL (150-450); RED BLOOD COUNT 2.63 10^6/uL (4.00-5.40); WHITE BLOOD COUNT 5.4 10^3/uL (4.0-10.0)
[2022-11-13 05:52] LABS: CALCIUM LEVEL 8.5 MG/DL (8.3-10.6); CREATININE FOR GFR 3.22 MG/DL (0.55-1.30); GLOMERULAR FILTRATION RATE 14.8 (>39)
[2022-11-13] MEDS ORDERED: HEPARIN 1,000UNITS/ML 10ML VIAL (FOR RADIOLOGY & DIALYSIS ONLY) IV PRN (06:00)
[2022-11-13] MEDS ORDERED: LIDOCAINE 1% SDV 5ML VIAL SC PRN (06:00)
[2022-11-13] MEDS ORDERED: SODIUM CHLORIDE 0.9% 1000ML IV PRN (06:00)
[2022-11-13] MEDS ORDERED: HEPARIN 1,000UNITS/ML 10ML VIAL (FOR RADIOLOGY & DIALYSIS ONLY) XX SCH (06:00)
[2022-11-13] MEDS: DOCUSATE SODIUM 100MG CAPSULE PO SCH ×2 (06:20→07:46)
[2022-11-13] MEDS: CARVedilol 6.25 MG TAB PO SCH ×2 (06:22→20:05)
[2022-11-13] MEDS: lisinopriL 5 MG TAB PO SCH ×2 (06:23→20:05)
[2022-11-13] MEDS: LETROZOLE 2.5 MG TAB PO SCH (06:24)
[2022-11-13] MEDS: FEBUXOSTAT 40 MG TABLET (ULORIC) PO SCH (06:26)
[2022-11-13] MEDS: MAGNESIUM OXIDE 400MG TAB (MAG-OX) PO SCH ×2 (06:26→20:04)
[2022-11-13] MEDS: FOLIC ACID 1MG TAB PO SCH (06:26)
[2022-11-13] MEDS: PANTOPRAZOLE 40MG VIAL IV SCH ×2 (06:26→20:03)
[2022-11-13] MEDS: CYANOCOBALAMIN 500 MCG TAB PO SCH (06:26)
[2022-11-13] MEDS: LEVEMIR (INSULIN DETEMIR) 1 UNITS/0.01ML SC SCH (07:53)
[2022-11-13] MEDS: INSULIN LISPRO (NovoLOG) PER UNIT SC SCH ×4 (07:54→21:00)
[2022-11-13] MEDS: SODIUM CHLORIDE 0.9% INJ 10 ML SYR IV PRN (17:13)
[2022-11-13 19:55] LABS: HEMATOCRIT 30.3 % (36.0-47.0)
[2022-11-13 19:59] LABS: HEMOGLOBIN 10.2 g/dl (12.0-15.5)
[2022-11-13] MEDS: ATORVASTATIN 10 MG TAB PO SCH (20:05)
[2022-11-14 06:00] VITALS: BP 120/48
[2022-11-14] MEDS: SODIUM CHLORIDE 0.9% INJ 10 ML SYR IV PRN ×3 (06:02→21:30)
[2022-11-14 06:23] LABS: HEMATOCRIT 23.6 % (36.0-47.0); MEAN CORPUSCULAR HEMOGLOBIN 29.7 pg (27.0-33.0); MEAN CORPUSCULAR HGB CONC 33.1 g/dl (32.0-36.5); MEAN CORPUSCULAR VOLUME 89.7 fl (80.0-96.0); PLATELET COUNT, AUTOMATED 159 10^3/uL (150-450); RED BLOOD COUNT 2.63 10^6/uL (4.00-5.40); WHITE BLOOD COUNT 4.5 10^3/uL (4.0-10.0)
[2022-11-14 06:50] LABS: HEMOGLOBIN 7.8 g/dl (12.0-15.5)
[2022-11-14 06:53] LABS: CALCIUM LEVEL 8.1 MG/DL (8.3-10.6); CREATININE FOR GFR 1.99 MG/DL (0.55-1.30); GLOMERULAR FILTRATION RATE 25.9 (>39); POTASSIUM SERUM 4.1 MMOL/L (3.5-5.1)
[2022-11-14 08:02] VITALS: BP 118/56
[2022-11-14] MEDS: CARVedilol 6.25 MG TAB PO SCH ×2 (08:02→20:20)
[2022-11-14] MEDS: lisinopriL 5 MG TAB PO SCH ×2 (08:03→20:20)
[2022-11-14] MEDS: PANTOPRAZOLE 40MG VIAL IV SCH ×2 (08:20→20:18)
[2022-11-14] MEDS: LEVEMIR (INSULIN DETEMIR) 1 UNITS/0.01ML SC SCH (08:20)
[2022-11-14] MEDS: SODIUM CHLORIDE 0.9% INJ 10 ML SYR IV SCH (08:21)
[2022-11-14] MEDS: FEBUXOSTAT 40 MG TABLET (ULORIC) PO SCH (08:21)
[2022-11-14] MEDS: INSULIN LISPRO (NovoLOG) PER UNIT SC SCH ×4 (08:21→21:00)
[2022-11-14] MEDS: FOLIC ACID 1MG TAB PO SCH (08:23)
[2022-11-14] MEDS: CYANOCOBALAMIN 500 MCG TAB PO SCH (08:23)
[2022-11-14] MEDS: LETROZOLE 2.5 MG TAB PO SCH (08:23)
[2022-11-14] MEDS: MAGNESIUM OXIDE 400MG TAB (MAG-OX) PO SCH ×2 (08:23→20:19)
[2022-11-14] MEDS: DOCUSATE SODIUM 100MG CAPSULE PO SCH ×2 (08:23→20:20)
[2022-11-14 14:00] VITALS: BP 127/62
[2022-11-14 14:39] LABS: HEMATOCRIT 29.2 % (36.0-47.0); HEMOGLOBIN 9.6 g/dl (12.0-15.5); MEAN CORPUSCULAR HEMOGLOBIN 29.7 pg (27.0-33.0); MEAN CORPUSCULAR HGB CONC 32.9 g/dl (32.0-36.5); MEAN CORPUSCULAR VOLUME 90.4 fl (80.0-96.0); PLATELET COUNT, AUTOMATED 200 10^3/uL (150-450); RED BLOOD COUNT 3.23 10^6/uL (4.00-5.40); WHITE BLOOD COUNT 5.4 10^3/uL (4.0-10.0)
[2022-11-14 19:39] VITALS: BP 138/64
[2022-11-14] MEDS ORDERED: HEPARIN SOD (PORCINE) 5000UNITS/ML 1ML VIAL/SYRINGE IV PRN (19:55)
[2022-11-14] MEDS ORDERED: HEPARIN DRIP 25,000 UNITS in IV 1 EA IV SCH (19:55)
[2022-11-14] MEDS: ATORVASTATIN 10 MG TAB PO SCH (20:19)
[2022-11-15] MEDS: SODIUM CHLORIDE 0.9% INJ 10 ML SYR IV PRN (03:11)
[2022-11-15 05:53] VITALS: BP 106/34
[2022-11-15] MEDS ORDERED: LIDOCAINE 1% SDV 5ML VIAL SC PRN (06:00)
[2022-11-15] MEDS ORDERED: HEPARIN 1,000UNITS/ML 10ML VIAL (FOR RADIOLOGY & DIALYSIS ONLY) XX SCH (06:00)
[2022-11-15] MEDS ORDERED: HEPARIN 1,000UNITS/ML 10ML VIAL (FOR RADIOLOGY & DIALYSIS ONLY) IV PRN (06:00)
[2022-11-15] MEDS ORDERED: SODIUM CHLORIDE 0.9% 1000ML IV PRN (06:00)
[2022-11-15] MEDS: lisinopriL 5 MG TAB PO SCH ×2 (06:33→21:37)
[2022-11-15] MEDS: CARVedilol 6.25 MG TAB PO SCH ×2 (06:33→21:37)
[2022-11-15] MEDS: SODIUM CHLORIDE 0.9% INJ 10 ML SYR IV SCH (06:48)
[2022-11-15] MEDS: PANTOPRAZOLE 40MG VIAL IV SCH ×2 (06:54→21:36)
[2022-11-15] MEDS: FEBUXOSTAT 40 MG TABLET (ULORIC) PO SCH (06:54)
[2022-11-15] MEDS: LETROZOLE 2.5 MG TAB PO SCH (06:54)
[2022-11-15] MEDS: DOCUSATE SODIUM 100MG CAPSULE PO SCH ×2 (06:54→21:00)
[2022-11-15] MEDS: FOLIC ACID 1MG TAB PO SCH (06:54)
[2022-11-15] MEDS: MAGNESIUM OXIDE 400MG TAB (MAG-OX) PO SCH ×2 (06:54→21:37)
[2022-11-15] MEDS: CYANOCOBALAMIN 500 MCG TAB PO SCH (06:54)
[2022-11-15 07:14] LABS: HEMATOCRIT 24.7 % (36.0-47.0); MEAN CORPUSCULAR HEMOGLOBIN 29.5 pg (27.0-33.0); MEAN CORPUSCULAR HGB CONC 32.4 g/dl (32.0-36.5); MEAN CORPUSCULAR VOLUME 91.1 fl (80.0-96.0); PLATELET COUNT, AUTOMATED 170 10^3/uL (150-450); RED BLOOD COUNT 2.71 10^6/uL (4.00-5.40); WHITE BLOOD COUNT 5.4 10^3/uL (4.0-10.0)
[2022-11-15 07:33] LABS: INR 1.17; PROTHROMBIN TIME 15.1 SECONDS (12.5-14.5)
[2022-11-15 07:35] LABS: PARTIAL THROMBOPLASTIN TIME 73.9 SECONDS (24.8-34.2)
[2022-11-15 07:45] LABS: CALCIUM LEVEL 8.6 MG/DL (8.3-10.6); CREATININE FOR GFR 2.69 MG/DL (0.55-1.30); GLOMERULAR FILTRATION RATE 18.3 (>39); POTASSIUM SERUM 4.6 MMOL/L (3.5-5.1)
[2022-11-15] MEDS: LEVEMIR (INSULIN DETEMIR) 1 UNITS/0.01ML SC SCH (08:16)
[2022-11-15] MEDS: INSULIN LISPRO (NovoLOG) PER UNIT SC SCH ×4 (08:17→21:00)
[2022-11-15] MEDS: ACETAMINOPHEN TAB 650MG DOSE (2X325MG) PO PRN (11:02)
[2022-11-15 14:00] VITALS: BP 132/74
[2022-11-15 21:00] VITALS: BP 144/58
[2022-11-15] MEDS: ATORVASTATIN 10 MG TAB PO SCH (21:38)
[2022-11-16 05:50] LABS: HEMATOCRIT 23.8 % (36.0-47.0); HEMOGLOBIN 7.8 g/dl (12.0-15.5); MEAN CORPUSCULAR HEMOGLOBIN 29.5 pg (27.0-33.0); MEAN CORPUSCULAR HGB CONC 32.8 g/dl (32.0-36.5); MEAN CORPUSCULAR VOLUME 90.2 fl (80.0-96.0); PLATELET COUNT, AUTOMATED 169 10^3/uL (150-450); RED BLOOD COUNT 2.64 10^6/uL (4.00-5.40); WHITE BLOOD COUNT 5.6 10^3/uL (4.0-10.0)
[2022-11-16 06:38] VITALS: BP 108/44
[2022-11-16 06:41] LABS: CALCIUM LEVEL 8.4 MG/DL (8.3-10.6); CREATININE FOR GFR 2.08 MG/DL (0.55-1.30); GLOMERULAR FILTRATION RATE 24.6 (>39); POTASSIUM SERUM 4.1 MMOL/L (3.5-5.1)
[2022-11-16] MEDS: PANTOPRAZOLE 40MG VIAL IV SCH ×2 (08:30→21:12)
[2022-11-16] MEDS: FEBUXOSTAT 40 MG TABLET (ULORIC) PO SCH (08:30)
[2022-11-16] MEDS: MAGNESIUM OXIDE 400MG TAB (MAG-OX) PO SCH ×2 (08:31→21:11)
[2022-11-16] MEDS: FOLIC ACID 1MG TAB PO SCH (08:31)
[2022-11-16] MEDS: LETROZOLE 2.5 MG TAB PO SCH (08:31)
[2022-11-16] MEDS: CYANOCOBALAMIN 500 MCG TAB PO SCH (08:31)
[2022-11-16] MEDS: LEVEMIR (INSULIN DETEMIR) 1 UNITS/0.01ML SC SCH (08:34)
[2022-11-16] MEDS: INSULIN LISPRO (NovoLOG) PER UNIT SC SCH ×4 (08:34→20:53)
[2022-11-16] MEDS: CARVedilol 6.25 MG TAB PO SCH ×2 (08:55→21:12)
[2022-11-16] MEDS: SODIUM CHLORIDE 0.9% INJ 10 ML SYR IV SCH ×2 (08:55→19:01)
[2022-11-16] MEDS: lisinopriL 5 MG TAB PO SCH ×2 (08:55→21:00)
[2022-11-16 11:46] LABS: HEMATOCRIT 27.1 % (36.0-47.0); HEMOGLOBIN 8.8 g/dl (12.0-15.5); MEAN CORPUSCULAR HEMOGLOBIN 29.6 pg (27.0-33.0); MEAN CORPUSCULAR HGB CONC 32.5 g/dl (32.0-36.5); MEAN CORPUSCULAR VOLUME 91.2 fl (80.0-96.0); PLATELET COUNT, AUTOMATED 185 10^3/uL (150-450); RED BLOOD COUNT 2.97 10^6/uL (4.00-5.40)
[2022-11-16 12:02] LABS: INR 1.07; PROTHROMBIN TIME 14.1 SECONDS (12.5-14.5)
[2022-11-16 12:03] LABS: PARTIAL THROMBOPLASTIN TIME 75.1 SECONDS (24.8-34.2)
[2022-11-16] MEDS ORDERED: LIDOCAINE 1% MDV 20ML VIAL As Ordered ONE (12:20)
[2022-11-16 15:00] VITALS: BP 110/56
[2022-11-16] MEDS ORDERED: SODIUM CHLORIDE 0.9% INJ 10 ML SYR IV PRN (18:00)
[2022-11-16 19:46] LABS: HEMATOCRIT 24.1 % (36.0-47.0)
[2022-11-16 21:00] VITALS: BP 122/42
[2022-11-16] MEDS: ATORVASTATIN 10 MG TAB PO SCH (21:11)
[2022-11-17] VITALS (11 sets, daily range): BP systolic 107–153; BP diastolic 38–64
[2022-11-17 05:20] LABS: HEMATOCRIT 20.8 % (36.0-47.0); HEMOGLOBIN 6.9 g/dl (12.0-15.5)
[2022-11-17] MEDS: SODIUM CHLORIDE 0.9% INJ 10 ML SYR IV SCH ×3 (05:53→18:09)
[2022-11-17] MEDS ORDERED: HEPARIN 1,000UNITS/ML 10ML VIAL (FOR RADIOLOGY & DIALYSIS ONLY) XX SCH (06:00)
[2022-11-17] MEDS ORDERED: HEPARIN 1,000UNITS/ML 10ML VIAL (FOR RADIOLOGY & DIALYSIS ONLY) IV PRN (06:00)
[2022-11-17] MEDS ORDERED: SODIUM CHLORIDE 0.9% 1000ML IV PRN (06:00)
[2022-11-17] MEDS ORDERED: LIDOCAINE 1% SDV 5ML VIAL SC PRN (06:00)
[2022-11-17] MEDS: SODIUM CHLORIDE 0.9% INJ 10 ML SYR IV PRN ×2 (06:20→22:21)
[2022-11-17 06:47] LABS: HEMATOCRIT 21.9 % (36.0-47.0); HEMOGLOBIN 7.2 g/dl (12.0-15.5); MEAN CORPUSCULAR HEMOGLOBIN 29.4 pg (27.0-33.0); MEAN CORPUSCULAR HGB CONC 32.9 g/dl (32.0-36.5); MEAN CORPUSCULAR VOLUME 89.4 fl (80.0-96.0); PLATELET COUNT, AUTOMATED 161 10^3/uL (150-450); RED BLOOD COUNT 2.45 10^6/uL (4.00-5.40); WHITE BLOOD COUNT 4.9 10^3/uL (4.0-10.0)
[2022-11-17 07:02] LABS: INR 1.13; PROTHROMBIN TIME 14.7 SECONDS (12.5-14.5)
[2022-11-17 07:10] LABS: PARTIAL THROMBOPLASTIN TIME 216.2 SECONDS (24.8-34.2)
[2022-11-17] MEDS: lisinopriL 5 MG TAB PO SCH ×2 (07:16→22:20)
[2022-11-17] MEDS: LETROZOLE 2.5 MG TAB PO SCH (07:47)
[2022-11-17] MEDS: FOLIC ACID 1MG TAB PO SCH (07:48)
[2022-11-17] MEDS: MAGNESIUM OXIDE 400MG TAB (MAG-OX) PO SCH ×2 (07:48→22:19)
[2022-11-17] MEDS: FEBUXOSTAT 40 MG TABLET (ULORIC) PO SCH (07:49)
[2022-11-17] MEDS: CYANOCOBALAMIN 500 MCG TAB PO SCH (07:49)
[2022-11-17] MEDS: CARVedilol 6.25 MG TAB PO SCH ×2 (07:49→22:20)
[2022-11-17] MEDS: PANTOPRAZOLE 40MG VIAL IV SCH ×2 (07:49→22:18)
[2022-11-17] MEDS: LEVEMIR (INSULIN DETEMIR) 1 UNITS/0.01ML SC SCH (07:50)
[2022-11-17] MEDS: INSULIN LISPRO (NovoLOG) PER UNIT SC SCH ×4 (07:50→21:00)
[2022-11-17 08:04] LABS: CALCIUM LEVEL 8.7 MG/DL (8.3-10.6); CREATININE FOR GFR 2.91 MG/DL (0.55-1.30); GLOMERULAR FILTRATION RATE 16.7 (>39); POTASSIUM SERUM 4.7 MMOL/L (3.5-5.1)
[2022-11-17 09:19] LABS: INR 1.11; PARTIAL THROMBOPLASTIN TIME 28.7 SECONDS (24.8-34.2); PROTHROMBIN TIME 14.5 SECONDS (12.5-14.5)
[2022-11-17 18:45] LABS: HEMOGLOBIN 11.6 g/dl (12.0-15.5)
[2022-11-17] MEDS: ATORVASTATIN 10 MG TAB PO SCH (22:19)
[2022-11-17] MEDS: ACETAMINOPHEN TAB 650MG DOSE (2X325MG) PO PRN (22:36)
[2022-11-18 06:00] VITALS: BP 138/48
[2022-11-18] MEDS: SODIUM CHLORIDE 0.9% INJ 10 ML SYR IV SCH ×3 (06:10→18:41)
[2022-11-18 06:34] LABS: HEMOGLOBIN 9.8 g/dl (12.0-15.5); MEAN CORPUSCULAR HEMOGLOBIN 29.8 pg (27.0-33.0); MEAN CORPUSCULAR HGB CONC 33.8 g/dl (32.0-36.5); MEAN CORPUSCULAR VOLUME 88.1 fl (80.0-96.0); PLATELET COUNT, AUTOMATED 129 10^3/uL (150-450); RED BLOOD COUNT 3.29 10^6/uL (4.00-5.40); WHITE BLOOD COUNT 4.8 10^3/uL (4.0-10.0)
[2022-11-18 06:44] LABS: INR 1.12; PARTIAL THROMBOPLASTIN TIME 32.5 SECONDS (24.8-34.2); PROTHROMBIN TIME 14.6 SECONDS (12.5-14.5)
[2022-11-18 07:04] LABS: ALBUMIN 2.4 G/DL (3.2-5.2); BILIRUBIN,TOTAL 0.6 MG/DL (0.3-1.2); CALCIUM LEVEL 8.4 MG/DL (8.3-10.6); CREATININE FOR GFR 2.3 MG/DL (0.55-1.30); GLOMERULAR FILTRATION RATE 21.9 (>39); POTASSIUM SERUM 3.8 MMOL/L (3.5-5.1); TOTAL PROTEIN 4.8 G/DL (5.7-8.2)
[2022-11-18] MEDS: CARVedilol 6.25 MG TAB PO SCH ×2 (09:00→21:55)
[2022-11-18] MEDS: lisinopriL 5 MG TAB PO SCH ×2 (09:00→20:36)
[2022-11-18] MEDS: INSULIN LISPRO (NovoLOG) PER UNIT SC SCH ×4 (09:22→20:35)
[2022-11-18] MEDS: LETROZOLE 2.5 MG TAB PO SCH (09:23)
[2022-11-18] MEDS: LEVEMIR (INSULIN DETEMIR) 1 UNITS/0.01ML SC SCH (09:23)
[2022-11-18] MEDS: PANTOPRAZOLE 40MG VIAL IV SCH ×2 (09:23→21:54)
[2022-11-18] MEDS: FOLIC ACID 1MG TAB PO SCH (09:24)
[2022-11-18] MEDS: MAGNESIUM OXIDE 400MG TAB (MAG-OX) PO SCH ×2 (09:25→21:54)
[2022-11-18] MEDS: CYANOCOBALAMIN 500 MCG TAB PO SCH (09:26)
[2022-11-18] MEDS: FEBUXOSTAT 40 MG TABLET (ULORIC) PO SCH (09:32)
[2022-11-18 13:09] LABS: HEMOGLOBIN 11.3 g/dl (12.0-15.5); MEAN CORPUSCULAR HEMOGLOBIN 30.1 pg (27.0-33.0); MEAN CORPUSCULAR HGB CONC 34.2 g/dl (32.0-36.5); MEAN CORPUSCULAR VOLUME 87.8 fl (80.0-96.0); PLATELET COUNT, AUTOMATED 154 10^3/uL (150-450); RED BLOOD COUNT 3.76 10^6/uL (4.00-5.40); WHITE BLOOD COUNT 5.6 10^3/uL (4.0-10.0)
[2022-11-18 14:00] VITALS: BP 112/64
[2022-11-18] MEDS ORDERED: HEPARIN SOD (PORCINE) 5000UNITS/ML 1ML VIAL/SYRINGE IV PRN (16:00)
[2022-11-18] MEDS: HEPARIN DRIP 25,000 UNITS in IV 1 EA IV SCH (18:37)
[2022-11-18 20:00] VITALS: BP 132/58
[2022-11-18] MEDS: ATORVASTATIN 10 MG TAB PO SCH (21:53)
[2022-11-19 06:00] VITALS: BP 134/64
[2022-11-19] MEDS: SODIUM CHLORIDE 0.9% INJ 10 ML SYR IV SCH ×3 (06:00→17:45)
[2022-11-19 07:06] LABS: HEMATOCRIT 30.1 % (36.0-47.0); HEMOGLOBIN 10.2 g/dl (12.0-15.5); MEAN CORPUSCULAR HGB CONC 33.9 g/dl (32.0-36.5); MEAN CORPUSCULAR VOLUME 88.5 fl (80.0-96.0); PLATELET COUNT, AUTOMATED 155 10^3/uL (150-450); WHITE BLOOD COUNT 6.7 10^3/uL (4.0-10.0)
[2022-11-19 07:28] LABS: ALBUMIN 2.6 G/DL (3.2-5.2); BILIRUBIN,TOTAL 0.4 MG/DL (0.3-1.2); CALCIUM LEVEL 9.1 MG/DL (8.3-10.6); CREATININE FOR GFR 3.08 MG/DL (0.55-1.30); GLOMERULAR FILTRATION RATE 15.6 (>39); POTASSIUM SERUM 4.2 MMOL/L (3.5-5.1); TOTAL PROTEIN 5.8 G/DL (5.7-8.2)
[2022-11-19] MEDS: lisinopriL 5 MG TAB PO SCH ×2 (09:00→21:00)
[2022-11-19] MEDS: PANTOPRAZOLE 40MG VIAL IV SCH ×2 (09:02→22:03)
[2022-11-19] MEDS: FOLIC ACID 1MG TAB PO SCH (09:05)
[2022-11-19] MEDS: MAGNESIUM OXIDE 400MG TAB (MAG-OX) PO SCH ×2 (09:05→22:03)
[2022-11-19] MEDS: FEBUXOSTAT 40 MG TABLET (ULORIC) PO SCH (09:05)
[2022-11-19] MEDS: CARVedilol 6.25 MG TAB PO SCH ×2 (09:06→22:04)
[2022-11-19] MEDS: CYANOCOBALAMIN 500 MCG TAB PO SCH (09:07)
[2022-11-19] MEDS: INSULIN LISPRO (NovoLOG) PER UNIT SC SCH ×4 (09:07→21:00)
[2022-11-19] MEDS: LEVEMIR (INSULIN DETEMIR) 1 UNITS/0.01ML SC SCH (09:07)
[2022-11-19] MEDS: LETROZOLE 2.5 MG TAB PO SCH (09:07)
[2022-11-19 14:00] VITALS: BP 124/58
[2022-11-19 15:47] LABS: INR 1.12; PROTHROMBIN TIME 14.6 SECONDS (12.5-14.5)
[2022-11-19 15:48] LABS: PARTIAL THROMBOPLASTIN TIME 67.4 SECONDS (24.8-34.2)
[2022-11-19] MEDS: HEPARIN DRIP 25,000 UNITS in IV 1 EA IV SCH (18:05)
[2022-11-19 20:00] VITALS: BP 136/62
[2022-11-19] MEDS: ATORVASTATIN 10 MG TAB PO SCH (22:04)
[2022-11-20 06:00] VITALS: BP 128/58
[2022-11-20] MEDS: SODIUM CHLORIDE 0.9% INJ 10 ML SYR IV SCH ×3 (06:00→17:25)
[2022-11-20 06:29] LABS: HEMATOCRIT 26.3 % (36.0-47.0); HEMOGLOBIN 8.7 g/dl (12.0-15.5); MEAN CORPUSCULAR HEMOGLOBIN 29.9 pg (27.0-33.0); MEAN CORPUSCULAR HGB CONC 33.1 g/dl (32.0-36.5); MEAN CORPUSCULAR VOLUME 90.4 fl (80.0-96.0); PLATELET COUNT, AUTOMATED 131 10^3/uL (150-450); RED BLOOD COUNT 2.91 10^6/uL (4.00-5.40); WHITE BLOOD COUNT 5.2 10^3/uL (4.0-10.0)
[2022-11-20 06:42] LABS: INR 1.13; PROTHROMBIN TIME 14.7 SECONDS (12.5-14.5)
[2022-11-20] MEDS: MAGNESIUM OXIDE 400MG TAB (MAG-OX) PO SCH ×2 (06:42→20:42)
[2022-11-20] MEDS: LETROZOLE 2.5 MG TAB PO SCH (06:43)
[2022-11-20] MEDS: FOLIC ACID 1MG TAB PO SCH (06:43)
[2022-11-20] MEDS: CYANOCOBALAMIN 500 MCG TAB PO SCH (06:43)
[2022-11-20] MEDS: FEBUXOSTAT 40 MG TABLET (ULORIC) PO SCH (06:43)
[2022-11-20 06:44] LABS: PARTIAL THROMBOPLASTIN TIME 94.4 SECONDS (24.8-34.2)
[2022-11-20] MEDS: lisinopriL 5 MG TAB PO SCH ×2 (06:45→20:42)
[2022-11-20] MEDS: CARVedilol 6.25 MG TAB PO SCH ×2 (06:45→20:41)
[2022-11-20] MEDS: PANTOPRAZOLE 40MG VIAL IV SCH ×2 (06:46→20:42)
[2022-11-20] MEDS ORDERED: SODIUM CHLORIDE 0.9% 1000ML IV PRN (07:25)
[2022-11-20] MEDS ORDERED: HEPARIN 1,000UNITS/ML 10ML VIAL (FOR RADIOLOGY & DIALYSIS ONLY) IV PRN (07:25)
[2022-11-20] MEDS ORDERED: HEPARIN 1,000UNITS/ML 10ML VIAL (FOR RADIOLOGY & DIALYSIS ONLY) XX SCH (07:25)
[2022-11-20] MEDS ORDERED: LIDOCAINE 1% SDV 5ML VIAL SC PRN (07:25)
[2022-11-20] MEDS: LEVEMIR (INSULIN DETEMIR) 1 UNITS/0.01ML SC SCH (07:59)
[2022-11-20] MEDS: INSULIN LISPRO (NovoLOG) PER UNIT SC SCH ×4 (07:59→21:00)
[2022-11-20 08:57] LABS: ALBUMIN 2.4 G/DL (3.2-5.2); BILIRUBIN,TOTAL 0.2 MG/DL (0.3-1.2); CREATININE FOR GFR 3.21 MG/DL (0.55-1.30); GLOMERULAR FILTRATION RATE 14.9 (>39); POTASSIUM SERUM 4.8 MMOL/L (3.5-5.1); TOTAL PROTEIN 4.8 G/DL (5.7-8.2)
[2022-11-20 09:53] LABS: INR 1.08; PROTHROMBIN TIME 14.2 SECONDS (12.5-14.5)
[2022-11-20 09:55] LABS: PARTIAL THROMBOPLASTIN TIME 92.7 SECONDS (24.8-34.2)
[2022-11-20 14:00] VITALS: BP 112/56
[2022-11-20] MEDS: HEPARIN DRIP 25,000 UNITS in IV 1 EA IV SCH (17:40)
[2022-11-20] MEDS: ATORVASTATIN 10 MG TAB PO SCH (20:42)
[2022-11-20 21:45] VITALS: BP 144/48
[2022-11-21] MEDS: SODIUM CHLORIDE 0.9% INJ 10 ML SYR IV SCH ×3 (05:57→17:31)
[2022-11-21 06:00] VITALS: BP 118/46
[2022-11-21 06:13] LABS: HEMATOCRIT 26.5 % (36.0-47.0); HEMOGLOBIN 8.7 g/dl (12.0-15.5); MEAN CORPUSCULAR HEMOGLOBIN 29.8 pg (27.0-33.0); MEAN CORPUSCULAR HGB CONC 32.8 g/dl (32.0-36.5); MEAN CORPUSCULAR VOLUME 90.8 fl (80.0-96.0); PLATELET COUNT, AUTOMATED 144 10^3/uL (150-450); RED BLOOD COUNT 2.92 10^6/uL (4.00-5.40); WHITE BLOOD COUNT 5.5 10^3/uL (4.0-10.0)
[2022-11-21 06:25] LABS: INR 1.09; PROTHROMBIN TIME 14.3 SECONDS (12.5-14.5)
[2022-11-21 06:27] LABS: PARTIAL THROMBOPLASTIN TIME 106.9 SECONDS (24.8-34.2)
[2022-11-21 06:40] LABS: ALBUMIN 2.6 G/DL (3.2-5.2); BILIRUBIN,TOTAL 0.4 MG/DL (0.3-1.2); CALCIUM LEVEL 9.3 MG/DL (8.3-10.6); CREATININE FOR GFR 2.07 MG/DL (0.55-1.30); GLOMERULAR FILTRATION RATE 24.7 (>39); POTASSIUM SERUM 4.7 MMOL/L (3.5-5.1); TOTAL PROTEIN 5.4 G/DL (5.7-8.2)
[2022-11-21] MEDS: INSULIN LISPRO (NovoLOG) PER UNIT SC SCH ×4 (07:48→21:00)
[2022-11-21] MEDS: FEBUXOSTAT 40 MG TABLET (ULORIC) PO SCH (07:49)
[2022-11-21] MEDS: PANTOPRAZOLE 40MG VIAL IV SCH ×2 (07:49→21:41)
[2022-11-21] MEDS: CYANOCOBALAMIN 500 MCG TAB PO SCH (07:49)
[2022-11-21] MEDS: LETROZOLE 2.5 MG TAB PO SCH (07:49)
[2022-11-21] MEDS: LEVEMIR (INSULIN DETEMIR) 1 UNITS/0.01ML SC SCH (07:49)
[2022-11-21] MEDS: lisinopriL 5 MG TAB PO SCH ×2 (07:50→21:00)
[2022-11-21] MEDS: CARVedilol 6.25 MG TAB PO SCH ×2 (07:50→21:40)
[2022-11-21] MEDS: FOLIC ACID 1MG TAB PO SCH (07:54)
[2022-11-21] MEDS: MAGNESIUM OXIDE 400MG TAB (MAG-OX) PO SCH ×2 (07:55→21:42)
[2022-11-21 14:00] VITALS: BP 135/78
[2022-11-21 16:42] LABS: RSV AMPLIFICATION NEGATIVE (NEGATIVE)
[2022-11-21] MEDS: HEPARIN DRIP 25,000 UNITS in IV 1 EA IV SCH (17:18)
[2022-11-21 21:39] VITALS: BP 126/52
[2022-11-21] MEDS: ATORVASTATIN 10 MG TAB PO SCH (21:39)
[2022-11-21] MEDS: SODIUM CHLORIDE 0.9% INJ 10 ML SYR IV PRN (21:54)
[2022-11-21] MEDS ORDERED: PANT40IN4 IV (22:41)
[2022-11-22] MEDS: SODIUM CHLORIDE 0.9% INJ 10 ML SYR IV PRN (00:52)
[2022-11-22 01:27] LABS: IRON (FE) 102 UG/DL (50-170); PERCENT SATURATION 33.7 % (13.2-45.0); TOTAL IRON BINDING CAPACITY 303 UG/DL (250-425)
[2022-11-22 01:31] LABS: FOLATE > 24.00 NG/ML (>5.4)
[2022-11-22 01:32] LABS: VITAMIN B12 LEVEL 1092 PG/ML (211-911)
[2022-11-22] MEDS: SODIUM CHLORIDE 0.9% INJ 10 ML SYR IV SCH ×2 (05:11→07:26)
[2022-11-22 05:16] VITALS: BP_SYST 112; BP_SYST 126; BP_DIAS 48; BP_DIAS 52
[2022-11-22 05:27] LABS: HEMATOCRIT 25.3 % (36.0-47.0); HEMOGLOBIN 8.4 g/dl (12.0-15.5); MEAN CORPUSCULAR HEMOGLOBIN 30.1 pg (27.0-33.0); MEAN CORPUSCULAR HGB CONC 33.2 g/dl (32.0-36.5); MEAN CORPUSCULAR VOLUME 90.7 fl (80.0-96.0); PLATELET COUNT, AUTOMATED 145 10^3/uL (150-450); RED BLOOD COUNT 2.79 10^6/uL (4.00-5.40); WHITE BLOOD COUNT 5.2 10^3/uL (4.0-10.0)
[2022-11-22 05:49] LABS: ALBUMIN 2.7 G/DL (3.2-5.2); CALCIUM LEVEL 9.3 MG/DL (8.3-10.6); CREATININE FOR GFR 2.84 MG/DL (0.55-1.30); GLOMERULAR FILTRATION RATE 17.2 (>39)
[2022-11-22] MEDS: PANTOPRAZOLE 40MG VIAL IV SCH (06:55)
[2022-11-22] MEDS: CYANOCOBALAMIN 500 MCG TAB PO SCH (06:59)
[2022-11-22] MEDS: LETROZOLE 2.5 MG TAB PO SCH (07:00)
[2022-11-22] MEDS: FEBUXOSTAT 40 MG TABLET (ULORIC) PO SCH (07:00)
[2022-11-22] MEDS: FOLIC ACID 1MG TAB PO SCH (07:00)
[2022-11-22 07:03] VITALS: BP 112/48
[2022-11-22] MEDS: lisinopriL 5 MG TAB PO SCH (07:03)
[2022-11-22] MEDS: CARVedilol 6.25 MG TAB PO SCH (07:03)
[2022-11-22] MEDS: INSULIN LISPRO (NovoLOG) PER UNIT SC SCH (07:25)
[2022-11-22] MEDS: LEVEMIR (INSULIN DETEMIR) 1 UNITS/0.01ML SC SCH (07:25)
[2022-11-22] MEDS ORDERED: MAGNESIUM OXIDE 400MG TAB (MAG-OX) PO SCH (09:00)
== END 2022-11-22 08:05 | disposition short-term general hospital (02) | DRG 981 ==
LOC: M ED 18:13 → M ED INP 23:28 → ENRESERV 10-26 14:10 → M MSPAV 10-26 16:00
PROVIDERS: ADMIT Internal Medicine; ATTEND Student in an Organized Health Care Education/Training Program
PROC: 30233N1 Transfusion of Nonautologous Red Blood Cells into Peripheral Vein, Percutaneous Approach (ICD-10-PCS; 2022-10-25)
PROC: 0DJ08ZZ Inspection of Upper Intestinal Tract, Via Natural or Artificial Opening Endoscopic (ICD-10-PCS; 2022-10-27)
PROC: 0DBN8ZX Excision of Sigmoid Colon, Via Natural or Artificial Opening Endoscopic, Diagnostic (ICD-10-PCS; 2022-10-27)
PROC: B51W1ZZ Fluoroscopy of Dialysis Shunt/Fistula using Low Osmolar Contrast (ICD-10-PCS; 2022-10-31)
PROC: 057Y3ZZ Dilation of Upper Vein, Percutaneous Approach (ICD-10-PCS; principal; 2022-10-31 07:30)
DX: D68.32 Hemorrhagic disorder due to extrinsic circulating anticoagulants (principal); N18.6 End stage renal disease; I13.2 Hypertensive heart and chronic kidney disease with heart failure and with stage 5 chronic kidney disease, or end stage renal disease; I50.32 Chronic diastolic (congestive) heart failure; K92.2 Gastrointestinal hemorrhage, unspecified; D62 Acute posthemorrhagic anemia; K92.0 Hematemesis; T82.9XXA Unspecified complication of cardiac and vascular prosthetic device, implant and graft, initial encounter; E11.22 Type 2 diabetes mellitus with diabetic chronic kidney disease; K63.5 Polyp of colon; K57.30 Diverticulosis of large intestine without perforation or abscess without bleeding; Z79.899 Other long term (current) drug therapy; Z79.01 Long term (current) use of anticoagulants; Z79.4 Long term (current) use of insulin; Z95.2 Presence of prosthetic heart valve; M10.9 Gout, unspecified; K59.00 Constipation, unspecified; E78.5 Hyperlipidemia, unspecified; K64.8 Other hemorrhoids; E87.5 Hyperkalemia; Y84.8 Other medical procedures as the cause of abnormal reaction of the patient, or of later complication, without mention of misadventure at the time of the procedure

== ENCOUNTER 2023-01-12 10:04 | Outpatient (CLI) | payer MEDICARE ==
[2023-01-12] VITALS (8 sets, daily range): BP systolic 130–154; BP diastolic 46–85
[~2023-01-12 10:04] MED LIST changes: +FERR325T18 PO; +INSUH10VL SC; +PANT40IN4 IV; +PATIENT COMMENT; +SODIUM CHLORIDE 0.9% INJ 10 ML SYR IV SCH
== END 2023-01-12 17:20 | disposition home or self-care (01) ==
LOC: M INFU 10:04
PROVIDERS: ATTEND Internal Medicine Nephrology
DX: D64.9 Anemia, unspecified (principal); Z88.8 Allergy status to other drugs, medicaments and biological substances
CPT/HCPCS: 36430; 86850; 86900; 86901; 86920; P9016

== ENCOUNTER → 2023-03-08 | Outpatient (CLI) | payer MEDICARE ==
[~2023-03-08] MED LIST changes: +HYDR5TAB PO; +SIMV-254 PO; -SODIUM CHLORIDE 0.9% INJ 10 ML SYR IV SCH; +SUCR1SS PO; -ZOCO40TA PO
== END ==
LOC: M LAB 10:49
PROVIDERS: ATTEND Internal Medicine Nephrology
DX: N18.6 End stage renal disease (principal); D63.1 Anemia in chronic kidney disease

== ENCOUNTER 2023-03-09 10:09 | Outpatient (CLI) | payer MEDICARE ==
[2023-03-09] VITALS (7 sets, daily range): BP systolic 100–159; BP diastolic 38–69
== END 2023-03-09 16:00 ==
LOC: M INFU 10:09
PROVIDERS: ATTEND Internal Medicine Nephrology
DX: N18.6 End stage renal disease (principal); D63.1 Anemia in chronic kidney disease; Z88.8 Allergy status to other drugs, medicaments and biological substances
CPT/HCPCS: 36430; P9016

== ENCOUNTER → 2023-04-03 | Outpatient (CLI) | payer MEDICARE | LOC: M WHC 11:06 | PROVIDERS: ATTEND Internal Medicine Medical Oncology | DX: Z12.31 Encounter for screening mammogram for malignant neoplasm of breast (principal); M81.0 Age-related osteoporosis without current pathological fracture; Z90.12 Acquired absence of left breast and nipple; Z85.3 Personal history of malignant neoplasm of breast ==

== ENCOUNTER → 2023-04-18 | Outpatient (CLI) | payer MEDICARE | LOC: M LAB 16:46 | PROVIDERS: ATTEND Internal Medicine Nephrology | DX: D64.9 Anemia, unspecified (principal) ==

== ENCOUNTER 2023-04-19 10:42 | Outpatient (CLI) | payer MEDICARE ==
[~2023-04-19 10:42] MED LIST changes: +ACETAMINOPHEN TAB 650MG DOSE (2X325MG) PO SCH; +diphenhydrAMINE 25MG CAP PO SCH
[2023-04-19] MEDS ORDERED: SODIUM CHLORIDE 0.9% INJ 10 ML SYR IV PRN (11:05)
[2023-04-19 11:15] VITALS: BP 144/65
[2023-04-19 11:30] VITALS: BP 109/51
[2023-04-19 13:00] VITALS: BP 131/71
== END 2023-04-19 13:05 | disposition home or self-care (01) ==
LOC: M INFU 10:42
PROVIDERS: ATTEND Internal Medicine Nephrology
DX: D64.9 Anemia, unspecified (principal); Z88.8 Allergy status to other drugs, medicaments and biological substances
CPT/HCPCS: 36430; P9016

== ENCOUNTER → 2023-05-09 | Outpatient (CLI) | payer MEDICARE ==
[~2023-05-09] MED LIST changes: -ACETAMINOPHEN TAB 650MG DOSE (2X325MG) PO SCH; -diphenhydrAMINE 25MG CAP PO SCH
== END ==
LOC: M LAB 10:27
PROVIDERS: ATTEND Internal Medicine Nephrology
DX: D64.9 Anemia, unspecified (principal)

== ENCOUNTER 2023-05-10 11:57 | Outpatient (CLI) | payer MEDICARE ==
[~2023-05-10 11:57] MED LIST changes: +ACETAMINOPHEN TAB 650MG DOSE (2X325MG) PO SCH; +diphenhydrAMINE 25MG CAP PO SCH
[2023-05-10] MEDS ORDERED: SODIUM CHLORIDE 0.9% INJ 10 ML SYR IV PRN (12:35)
[2023-05-10 12:43] VITALS: BP 198/84; O2SAT 100
[2023-05-10 13:50] VITALS: BP 164/70; TEMP 98.1; O2SAT 100
[2023-05-10 14:32] VITALS: BP 132/60; TEMP 97.7; O2SAT 98
[2023-05-10 14:45] VITALS: BP 145/67; TEMP 97; O2SAT 98
[2023-05-10 16:07] VITALS: BP 142/65; TEMP 97.6; O2SAT 99
== END 2023-05-10 16:08 ==
LOC: M INFU 11:57
PROVIDERS: ATTEND Internal Medicine Nephrology
DX: D64.9 Anemia, unspecified (principal); Z88.8 Allergy status to other drugs, medicaments and biological substances
CPT/HCPCS: 36430; 96523; P9016

== ENCOUNTER 2023-08-22 12:03 | Emergency (ER) | payer MEDICARE ==
[~2023-08-22] VITALS: Ht 154.9 cm; Wt 54.3 kg
[~2023-08-22 12:03] MED LIST changes: -ACETAMINOPHEN TAB 650MG DOSE (2X325MG) PO SCH; -diphenhydrAMINE 25MG CAP PO SCH
[2023-08-22] MEDS: MORPHINE 2 MG/ML 1ML VIAL IV PRN ×2 (13:20→13:51)
[2023-08-22] MEDS ORDERED: PERCOCET 5MG/325MG TAB PO ONE (14:45)
[2023-08-22 16:30] VITALS: BP 144/67; TEMP 97.5
[2023-08-22 16:45] VITALS: O2SAT 91
[2023-08-22 16:46] VITALS: O2SAT 94
[2023-08-22] MEDS ORDERED: PERC5TAB12 PO (16:56)
== END 2023-08-22 17:08 | disposition home or self-care (01) ==
LOC: EDBD 12:03 → M ED 13:31
DX: S42.211A Unspecified displaced fracture of surgical neck of right humerus, initial encounter for closed fracture (principal); W19.XXXA Unspecified fall, initial encounter; E11.9 Type 2 diabetes mellitus without complications; I50.22 Chronic systolic (congestive) heart failure; I10 Essential (primary) hypertension; E78.5 Hyperlipidemia, unspecified; N18.6 End stage renal disease; Z85.3 Personal history of malignant neoplasm of breast; Z88.8 Allergy status to other drugs, medicaments and biological substances; Z87.891 Personal history of nicotine dependence; Z79.02 Long term (current) use of antithrombotics/antiplatelets; Z79.4 Long term (current) use of insulin; Z79.811 Long term (current) use of aromatase inhibitors; Z79.01 Long term (current) use of anticoagulants; Z79.899 Other long term (current) drug therapy

== ENCOUNTER 2023-09-03 10:07 | Inpatient (IN) | payer MEDICARE ==
[~2023-09-03] VITALS: Ht 154.9 cm; Wt 54.5 kg
[~2023-09-03 10:07] MED LIST changes: +PERC5TAB12 PO
[2023-09-03] MEDS ORDERED: APAP325T4 PO (10:48)
[2023-09-03] MEDS ORDERED: NS 1,580 ML in IV 1 EA IV ONE (11:20)
[2023-09-03] MEDS ORDERED: PIPERACILLIN/TAZOBACTAM SOD 4.5 GM in D5W MINI-BAG PLUS 50 ML IV ONE (11:20)
[2023-09-03 11:22] LABS: BASO % 0.3 % (0.0-1.0); EOS % 0.2 % (0.0-3.0); HEMATOCRIT 30.5 % (36.0-47.0); HEMOGLOBIN 9.9 g/dl (12.0-15.5); LYMPH # 0.2 10^3/uL (1.5-5.0); LYMPH % 2.2 % (24.0-44.0); MEAN CORPUSCULAR HEMOGLOBIN 31.5 pg (27.0-33.0); MEAN CORPUSCULAR HGB CONC 32.5 g/dl (32.0-36.5); MEAN CORPUSCULAR VOLUME 97.1 fl (80.0-96.0); MONO # 0.5 10^3/uL (0.0-0.8); MONO % 4.5 % (2.0-8.0); NEUTROPHILS # 9.7 10^3/uL (1.5-8.5); NEUTROPHILS % 92.4 % (36.0-66.0); PLATELET COUNT, AUTOMATED 164 10^3/uL (150-450); RED BLOOD COUNT 3.14 10^6/uL (4.00-5.40); WHITE BLOOD COUNT 10.5 10^3/uL (4.0-10.0)
[2023-09-03 11:34] LABS: INR 3.11; PARTIAL THROMBOPLASTIN TIME 46.1 SECONDS (24.8-34.2); PROTHROMBIN TIME 31.3 SECONDS (12.5-14.5)
[2023-09-03 11:49] LABS: C REACTIVE PROTEIN QUANTITATIV 4.8 MG/DL (<1.0)
[2023-09-03 11:51] LABS: BILIRUBIN,DIRECT 0.4 MG/DL (<0.4); BILIRUBIN,TOTAL 0.8 MG/DL (0.3-1.2); CALCIUM LEVEL 8.3 MG/DL (8.3-10.6); CREATININE FOR GFR 1.51 MG/DL (0.55-1.30); GLOMERULAR FILTRATION RATE 35.6 (>39); POTASSIUM SERUM 4.2 MMOL/L (3.5-5.1); TOTAL PROTEIN 6.1 G/DL (5.7-8.2)
[2023-09-03 12:02] LABS: PROCALCITONIN 0.34 ng/ml
[2023-09-03 13:07] LABS: APPEARANCE, URINE HAZY (CLEAR); BACTERIA, URINE AUTO 3+ (NEGATIVE); BILIRUBIN, URINE AUTO NEGATIVE (NEGATIVE); BLOOD, URINE BLOOD 1+ (NEGATIVE); COLOR, URINE YELLOW (YELLOW); GLUCOSE, URINE (UA) AUTO NEGATIVE (NEGATIVE); KETONE, URINE AUTO NEGATIVE (NEGATIVE); LEUKOCYTE ESTERASE, URINE AUTO 2+ (NEGATIVE); NITRITE, URINE AUTO NEGATIVE (NEGATIVE); PROTEIN, URINE AUTO 3+ mg/dL (NEGATIVE); RBC, URINE AUTO 1 /HPF (0-3); SPECIFIC GRAVITY URINE AUTO 1.015 (1.002-1.035); SQUAMOUS EPITHELIAL CELL UR AU 0 /HPF (0-6); UROBILINOGEN, URINE AUTO 0.2 mg/dL (0.0-2.0); WBC, URINE AUTO 21 /HPF (0-3)
[2023-09-03] MEDS ORDERED: MED REC IN PROGRESS XX SCH (14:15)
[2023-09-03] MEDS ORDERED: MOM 30ML SUSPENSION UDC PO PRN (15:00)
[2023-09-03] MEDS ORDERED: MAALOX 30 ML SUSP *UDC PO PRN (15:00)
[2023-09-03] MEDS ORDERED: MED REC CURRENTLY UNOBTAINABLE XX SCH (15:55)
[2023-09-03] MEDS ORDERED: VANCOMYCIN HCL 1,000 MG in IV FLUID PLACE HOLDER 1 EA IV SCH (16:05)
[2023-09-03] MEDS ORDERED: MORPHINE 2 MG/ML 1ML VIAL IV ONE (16:05)
[2023-09-03 16:20] VITALS: BP 121/55; TEMP 99.6; O2SAT 94
[2023-09-03] MEDS ORDERED: GLUCOSE 4GM CHEW TABLET PO PRN (16:35)
[2023-09-03] MEDS ORDERED: DEXTROSE 50% 50ML SYRINGE IV PRN (16:35)
[2023-09-03] MEDS ORDERED: GLUCAGON INJ 1MG VIAL SC PRN (16:35)
[2023-09-03] MEDS: INSULIN LISPRO (NovoLOG) PER UNIT SC SCH ×2 (17:30→21:00)
[2023-09-03] MEDS ORDERED: PIPERACILLIN/TAZOBACTAM SOD 3.375 GM in D5W MINI-BAG PLUS 50 ML IV SCH (18:00)
[2023-09-03] MEDS ORDERED: VANCOMYCIN HCL 1,000 MG, VIAL MATE ADAPTER 1 EACH in D5W 250 ML IV ONE (19:00)
[2023-09-03 19:36] VITALS: BP 109/52; TEMP 99.5; O2SAT 96
[2023-09-03] MEDS ORDERED: PANT-23 PO (19:36)
[2023-09-03] MEDS ORDERED: HOME MED LIST COMPLETE! XX SCH (19:40)
[2023-09-03] MEDS: LEVEMIR (INSULIN DETEMIR) 1 UNITS/0.01ML SC SCH (21:20)
[2023-09-03 22:15] VITALS: TEMP 100.6
[2023-09-03] MEDS: PERCOCET 5MG/325MG TAB PO PRN (22:17)
[2023-09-03 23:26] VITALS: BP 126/56; TEMP 101.5; O2SAT 98
[2023-09-03] MEDS: ACETAMINOPHEN TAB 650MG DOSE (2X325MG) PO PRN (23:46)
[2023-09-04] VITALS (16 sets, daily range): BP systolic 94–156; BP diastolic 40–78; TEMP 98.3–102.8; O2SAT 90–98
[2023-09-04] MEDS: PIPERACILLIN/TAZOBACTAM SOD 4.5 GM in D5W MINI-BAG PLUS 50 ML IV SCH ×2 (03:39→21:16)
[2023-09-04] MEDS ORDERED: OXYC1TAB23 PO (05:36)
[2023-09-04] MEDS: PERCOCET 5MG/325MG TAB PO PRN (05:36)
[2023-09-04] MEDS ORDERED: LISI10TA22 PO (06:35)
[2023-09-04 07:15] LABS: BASO % 0.4 % (0.0-1.0); EOS # 0.1 10^3/uL (0.0-0.5); EOS % 1.2 % (0.0-3.0); HEMATOCRIT 24.4 % (36.0-47.0); LYMPH # 0.2 10^3/uL (1.5-5.0); LYMPH % 2.6 % (24.0-44.0); MEAN CORPUSCULAR HEMOGLOBIN 31.2 pg (27.0-33.0); MEAN CORPUSCULAR HGB CONC 31.6 g/dl (32.0-36.5); MEAN CORPUSCULAR VOLUME 98.8 fl (80.0-96.0); MONO # 0.5 10^3/uL (0.0-0.8); MONO % 6.7 % (2.0-8.0); NEUTROPHILS # 7.2 10^3/uL (1.5-8.5); NEUTROPHILS % 88.7 % (36.0-66.0); PLATELET COUNT, AUTOMATED 120 10^3/uL (150-450); RED BLOOD COUNT 2.47 10^6/uL (4.00-5.40); WHITE BLOOD COUNT 8.1 10^3/uL (4.0-10.0)
[2023-09-04] MEDS: INSULIN LISPRO (NovoLOG) PER UNIT SC SCH ×4 (07:30→21:00)
[2023-09-04 07:36] LABS: HEMOGLOBIN 7.7 g/dl (12.0-15.5); VANCOMYCIN LEVEL TROUGH 11.4 UG/ML (10.0-20.0)
[2023-09-04 07:37] LABS: CALCIUM LEVEL 7.7 MG/DL (8.3-10.6); CREATININE FOR GFR 2.57 MG/DL (0.55-1.30); GLOMERULAR FILTRATION RATE 19.3 (>39); POTASSIUM SERUM 4.8 MMOL/L (3.5-5.1)
[2023-09-04] MEDS ORDERED: VANCOMYCIN HCL 750 MG, VIAL MATE ADAPTER 1 EACH in D5W 250 ML IV SCH (08:00)
[2023-09-04] MEDS ORDERED: VITAMIN D 1,000 INTERNATIONAL UNITS TABLET PO SCH (09:00)
[2023-09-04] MEDS ORDERED: CARVedilol 6.25 MG TAB PO SCH (09:00)
[2023-09-04] MEDS: LETROZOLE 2.5 MG TAB PO SCH (09:40)
[2023-09-04] MEDS ORDERED: DARBEPOETIN 200MCG/0.4ML *DIALYSIS* SYRINGE IV SCH (09:40)
[2023-09-04] MEDS: FOLIC ACID 1MG TAB PO SCH (09:40)
[2023-09-04] MEDS: FEBUXOSTAT 40 MG TABLET (ULORIC) PO SCH (09:40)
[2023-09-04] MEDS: PANTOPRAZOLE 40MG TAB (PROTONIX) PO SCH ×2 (09:40→21:34)
[2023-09-04] MEDS: CYANOCOBALAMIN 500 MCG TAB PO SCH (09:40)
[2023-09-04] MEDS ORDERED: ISOVUE-370 76% 100ML VIAL As Ordered ONE (09:53)
[2023-09-04 10:58] LABS: C REACTIVE PROTEIN QUANTITATIV 13.1 MG/DL (<1.0)
[2023-09-04] MEDS ORDERED: VANCOMYCIN HCL 750 MG, VIAL MATE ADAPTER 1 EACH in D5W 250 ML IV ONE (12:00)
[2023-09-04] MEDS ORDERED: HEPARIN SOD (PORCINE) 5000UNITS/ML 1ML VIAL/SYRINGE IV ONE (16:50)
[2023-09-04] MEDS ORDERED: HEPARIN DRIP 25,000 UNITS in IV 1 EA IV SCH (16:50)
[2023-09-04] MEDS ORDERED: HEPARIN SOD (PORCINE) 5000UNITS/ML 1ML VIAL/SYRINGE IV PRN (16:50)
[2023-09-04 17:24] LABS: HEMATOCRIT 30.8 % (36.0-47.0); HEMOGLOBIN 9.6 g/dl (12.0-15.5); MEAN CORPUSCULAR HEMOGLOBIN 29.8 pg (27.0-33.0); MEAN CORPUSCULAR HGB CONC 31.2 g/dl (32.0-36.5); MEAN CORPUSCULAR VOLUME 95.7 fl (80.0-96.0); PLATELET COUNT, AUTOMATED 124 10^3/uL (150-450); RED BLOOD COUNT 3.22 10^6/uL (4.00-5.40)
[2023-09-04 17:26] LABS: INR 3.03; PROTHROMBIN TIME 30.7 SECONDS (12.5-14.5)
[2023-09-04] MEDS: ACETAMINOPHEN TAB 650MG DOSE (2X325MG) PO PRN (17:48)
[2023-09-04] MEDS ORDERED: ACETAMINOPHEN *IV* 1,000 MG in IV 1 EA IV ONE (20:20)
[2023-09-04 20:32] LABS: HEMATOCRIT 33.9 % (36.0-47.0)
[2023-09-04] MEDS ORDERED: ATORVASTATIN 10 MG TAB PO SCH (21:00)
[2023-09-04] MEDS: LEVEMIR (INSULIN DETEMIR) 1 UNITS/0.01ML SC SCH (21:00)
[2023-09-04] MEDS: CARVedilol 3.125 MG TAB PO SCH (21:34)
[2023-09-05] MEDS: PIPERACILLIN/TAZOBACTAM SOD 4.5 GM in D5W MINI-BAG PLUS 50 ML IV SCH (03:13)
[2023-09-05 03:18] VITALS: BP 131/58; TEMP 97.6; O2SAT 94
[2023-09-05 04:07] LABS: BASO % 0.6 % (0.0-1.0); EOS # 0.1 10^3/uL (0.0-0.5); EOS % 1.2 % (0.0-3.0); HEMATOCRIT 30.2 % (36.0-47.0); HEMOGLOBIN 9.7 g/dl (12.0-15.5); LYMPH # 0.6 10^3/uL (1.5-5.0); LYMPH % 9.1 % (24.0-44.0); MEAN CORPUSCULAR HEMOGLOBIN 30.6 pg (27.0-33.0); MEAN CORPUSCULAR HGB CONC 32.1 g/dl (32.0-36.5); MEAN CORPUSCULAR VOLUME 95.3 fl (80.0-96.0); MONO # 0.8 10^3/uL (0.0-0.8); MONO % 11.4 % (2.0-8.0); NEUTROPHILS # 5.3 10^3/uL (1.5-8.5); PLATELET COUNT, AUTOMATED 138 10^3/uL (150-450); RED BLOOD COUNT 3.17 10^6/uL (4.00-5.40); WHITE BLOOD COUNT 6.9 10^3/uL (4.0-10.0)
[2023-09-05 04:17] LABS: INR 2.62; PROTHROMBIN TIME 27.4 SECONDS (12.5-14.5)
[2023-09-05 04:57] LABS: PARTIAL THROMBOPLASTIN TIME 185.8 SECONDS (24.8-34.2)
[2023-09-05 05:31] LABS: C REACTIVE PROTEIN QUANTITATIV 11.9 MG/DL (<1.0)
[2023-09-05 05:34] LABS: CALCIUM LEVEL 7.5 MG/DL (8.3-10.6); CREATININE FOR GFR 3.27 MG/DL (0.55-1.30); GLOMERULAR FILTRATION RATE 14.6 (>39); POTASSIUM SERUM 5.2 MMOL/L (3.5-5.1)
[2023-09-05] MEDS ORDERED: SODIUM CHLORIDE 0.9% 1000ML IV PRN (06:00)
[2023-09-05] MEDS ORDERED: LIDOCAINE 1% SDV 5ML VIAL SC PRN (06:00)
[2023-09-05 07:54] VITALS: BP 151/67; TEMP 96.8; O2SAT 95
[2023-09-05 09:00] VITALS: BP 151/67
[2023-09-05] MEDS: CARVedilol 3.125 MG TAB PO SCH (09:00)
[2023-09-05] MEDS ORDERED: metOLazone 5 MG TAB PO ONE (09:00)
[2023-09-05] MEDS ORDERED: FUROSEMIDE 100MG/10ML VIAL IV ONE (09:00)
[2023-09-05] MEDS: INSULIN LISPRO (NovoLOG) PER UNIT SC SCH ×2 (09:51→12:00)
[2023-09-05] MEDS: PANTOPRAZOLE 40MG TAB (PROTONIX) PO SCH (09:52)
[2023-09-05] MEDS: CYANOCOBALAMIN 500 MCG TAB PO SCH (09:52)
[2023-09-05] MEDS: FOLIC ACID 1MG TAB PO SCH (09:52)
[2023-09-05] MEDS: FEBUXOSTAT 40 MG TABLET (ULORIC) PO SCH (09:54)
[2023-09-05] MEDS: LETROZOLE 2.5 MG TAB PO SCH (09:54)
[2023-09-05] MEDS ORDERED: PATIROMER SORBITEX CALCIUM 8.4 GM POWDER PACKET (VELTASSA) PO ONE (11:00)
[2023-09-05 12:01] VITALS: BP 144/58; TEMP 99.8; O2SAT 98
[2023-09-05] MEDS ORDERED: INSUHUMDS SC (14:39)
[2023-09-05] MEDS ORDERED: ZOSY1SOL6 IV (14:39)
[2023-09-05] MEDS ORDERED: INSUDET SC (14:39)
[2023-09-05] MEDS ORDERED: VANC750I IV (14:39)
[2023-09-05] MEDS ORDERED: CARV3.12 PO (14:39)
[2023-09-05] MEDS ORDERED: heparin drip (14:39)
[2023-09-05 15:54] VITALS: BP 150/60; TEMP 97.7; O2SAT 95
[2023-09-05] MEDS ORDERED: VANCOMYCIN HCL 750 MG, VIAL MATE ADAPTER 1 EACH in D5W 250 ML IV SCH (16:00)
== END 2023-09-05 16:20 | disposition short-term general hospital (02) | DRG 314 ==
LOC: M ED 10:07 → EDBD 10:07 → M ED INP 14:21 → M PCU 16:20
PROVIDERS: ADMIT Internal Medicine Nephrology; ATTEND Internal Medicine
PROC: 30233N1 Transfusion of Nonautologous Red Blood Cells into Peripheral Vein, Percutaneous Approach (ICD-10-PCS; principal; 2023-09-04)
DX: T82.7XXA Infection and inflammatory reaction due to other cardiac and vascular devices, implants and grafts, initial encounter (principal); N18.6 End stage renal disease; I12.0 Hypertensive chronic kidney disease with stage 5 chronic kidney disease or end stage renal disease; I77.0 Arteriovenous fistula, acquired; E11.22 Type 2 diabetes mellitus with diabetic chronic kidney disease; Z95.2 Presence of prosthetic heart valve; I25.10 Atherosclerotic heart disease of native coronary artery without angina pectoris; S42.202D Unspecified fracture of upper end of left humerus, subsequent encounter for fracture with routine healing; E78.5 Hyperlipidemia, unspecified; I95.9 Hypotension, unspecified; R82.71 Bacteriuria; D63.1 Anemia in chronic kidney disease; E87.5 Hyperkalemia; M10.9 Gout, unspecified; Z79.01 Long term (current) use of anticoagulants; K57.90 Diverticulosis of intestine, part unspecified, without perforation or abscess without bleeding; Z79.899 Other long term (current) drug therapy; Z79.4 Long term (current) use of insulin; Z85.3 Personal history of malignant neoplasm of breast; Y83.1 Surgical operation with implant of artificial internal device as the cause of abnormal reaction of the patient, or of later complication, without mention of misadventure at the time of the procedure

== ENCOUNTER → 2023-10-19 | Outpatient (CLI) | payer MEDICARE ==
[~2023-10-19] MED LIST changes: +APAP325T4 PO; +INSUHUMDS SC; +LISI10TA22 PO; +OXYC1TAB23 PO; +VANC750I IV; +ZOSY1SOL6 IV; +heparin drip
== END ==
LOC: M SOG 09:49
PROVIDERS: ATTEND Orthopaedic Surgery
DX: S42.212A Unspecified displaced fracture of surgical neck of left humerus, initial encounter for closed fracture (principal); Y93.9 Activity, unspecified; Y92.9 Unspecified place or not applicable; M19.012 Primary osteoarthritis, left shoulder

== ENCOUNTER 2023-11-23 08:05 | Inpatient (IN) | payer MEDICARE ==
[~2023-11-23] VITALS: Ht 154.9 cm; Wt 55.9 kg
[~2023-11-23 08:05] MED LIST changes: +HYDR-161 PO; -HYDR10TAB PO; +HYDR25TA87 PO; +WARF-58
[2023-11-23] MEDS: hydrALAZINE 20MG/ML 1ML VIAL IV STA ×2 (08:42→10:14)
[2023-11-23 09:28] LABS: BASO # 0.1 10^3/uL (0.0-0.2); BASO % 0.8 % (0.0-1.0); EOS # 0.1 10^3/uL (0.0-0.5); EOS % 2.3 % (0.0-3.0); HEMATOCRIT 39.6 % (36.0-47.0); HEMOGLOBIN 12.4 g/dl (12.0-15.5); LYMPH # 0.7 10^3/uL (1.5-5.0); MEAN CORPUSCULAR HEMOGLOBIN 30.5 pg (27.0-33.0); MEAN CORPUSCULAR HGB CONC 31.3 g/dl (32.0-36.5); MEAN CORPUSCULAR VOLUME 97.3 fl (80.0-96.0); MONO # 0.7 10^3/uL (0.0-0.8); MONO % 11.5 % (2.0-8.0); NEUTROPHILS # 4.5 10^3/uL (1.5-8.5); NEUTROPHILS % 74.1 % (36.0-66.0); PLATELET COUNT, AUTOMATED 222 10^3/uL (150-450); RED BLOOD COUNT 4.07 10^6/uL (4.00-5.40); WHITE BLOOD COUNT 6.1 10^3/uL (4.0-10.0)
[2023-11-23 09:30] LABS: LIPASE 22 U/L (12-53)
[2023-11-23 09:32] LABS: ALBUMIN 2.7 G/DL (3.2-5.2); ALKALINE PHOSPHATASE 176 U/L (46-116); ALT/SGPT < 9 U/L (7.0-40); AST/SGOT 24 U/L (<34); BILIRUBIN,DIRECT 0.2 MG/DL (<0.4); BILIRUBIN,TOTAL 0.5 MG/DL (0.3-1.2); BLOOD UREA NITROGEN 14 MG/DL (9-23); CALCIUM LEVEL 8.6 MG/DL (8.3-10.6); CARBON DIOXIDE LEVEL 29 MMOL/L (20-31); CHLORIDE LEVEL 104 MMOL/L (98-107); CREATININE FOR GFR 1.61 MG/DL (0.55-1.30); GLOMERULAR FILTRATION RATE 32.9 (>39); GLUCOSE, FASTING 119 MG/DL (74-106); POTASSIUM SERUM 3.6 MMOL/L (3.5-5.1); SODIUM LEVEL 139 MMOL/L (136-145); TOTAL PROTEIN 6.9 G/DL (5.7-8.2)
[2023-11-23] MEDS ORDERED: ISOVUE-370 76% 100ML VIAL As Ordered ONE (10:38)
[2023-11-23] MEDS: MORPHINE 2 MG/ML 1ML VIAL IV PRN (11:15)
[2023-11-23] MEDS ORDERED: MED REC IN PROGRESS XX SCH (12:25)
[2023-11-23] MEDS ORDERED: ACETAMINOPHEN TAB 650MG DOSE (2X325MG) PO PRN (12:45)
[2023-11-23] MEDS ORDERED: MOM 30ML SUSPENSION UDC PO PRN (12:45)
[2023-11-23] MEDS ORDERED: GLUCOSE 4GM CHEW TABLET PO PRN (13:10)
[2023-11-23] MEDS ORDERED: DEXTROSE 50% 50ML SYRINGE IV PRN (13:10)
[2023-11-23] MEDS ORDERED: GLUCAGON INJ 1MG VIAL SC PRN (13:10)
[2023-11-23] MEDS ORDERED: WARF-18 PO ×2 (14:41)
[2023-11-23] MEDS ORDERED: INSUHUMDS SC (14:41)
[2023-11-23] MEDS ORDERED: HOME MED LIST COMPLETE! XX SCH (14:45)
[2023-11-23] MEDS: ACETAMINOPHEN TAB 650MG DOSE (2X325MG) PO SCH (14:50)
[2023-11-23] MEDS: CARVedilol 3.125 MG TAB PO ONE (14:50)
[2023-11-23] MEDS: LIDOCAINE 5% (LIDODERM) PATCH TD ONE (14:51)
[2023-11-23] MEDS: **hydrALAZINE HCL** 25 MG TAB PO ONE ×2 (14:51→17:07)
[2023-11-23] MEDS: INSULIN LISPRO (NovoLOG) PER UNIT SC SCH ×2 (17:30→20:26)
[2023-11-23 17:33] VITALS: TEMP 98.1; O2SAT 98
[2023-11-23] MEDS ORDERED: PILL CUTTER 1 EACH XX PRN (17:45)
[2023-11-23 18:15] VITALS: BP 168/74
[2023-11-23] MEDS: DICYCLOMINE 10 MG CAP PO SCH (19:36)
[2023-11-23 20:10] VITALS: BP 131/59; TEMP 98.3; O2SAT 97
[2023-11-23] MEDS: CARVedilol 6.25 MG TAB PO SCH (20:26)
[2023-11-23] MEDS: DOCUSATE SODIUM 100MG CAPSULE PO SCH (20:48)
[2023-11-23] MEDS: **hydrALAZINE HCL** 25 MG TAB PO SCH (20:48)
[2023-11-23] MEDS: WARFARIN SOD 2.5MG TAB PO SCH (20:48)
[2023-11-23] MEDS: MAGNESIUM OXIDE 400MG TAB (MAG-OX) PO SCH (20:48)
[2023-11-23] MEDS: PANTOPRAZOLE 40MG TAB (PROTONIX) PO SCH (20:49)
[2023-11-23] MEDS: DICLOFENAC EPOLAMINE 1.3% PATCH TOP SCH (20:50)
[2023-11-24] VITALS (8 sets, daily range): BP systolic 130–199; BP diastolic 58–82; TEMP 96.3–99; O2SAT 95–99
[2023-11-24] MEDS: PERCOCET 5MG/325MG TAB PO ONE (01:21)
[2023-11-24] MEDS: hydrALAZINE 20MG/ML 1ML VIAL IV ONE (04:34)
[2023-11-24] MEDS ORDERED: SODIUM CHLORIDE 0.9% 1000ML IV PRN (06:00)
[2023-11-24] MEDS ORDERED: HEPARIN 1,000UNITS/ML 10ML VIAL (FOR RADIOLOGY & DIALYSIS ONLY) IV PRN (06:00)
[2023-11-24 07:24] LABS: HEMATOCRIT 37.5 % (36.0-47.0); HEMOGLOBIN 11.7 g/dl (12.0-15.5); MEAN CORPUSCULAR HEMOGLOBIN 30.5 pg (27.0-33.0); MEAN CORPUSCULAR HGB CONC 31.2 g/dl (32.0-36.5); MEAN CORPUSCULAR VOLUME 97.7 fl (80.0-96.0); PLATELET COUNT, AUTOMATED 183 10^3/uL (150-450); RED BLOOD COUNT 3.84 10^6/uL (4.00-5.40); WHITE BLOOD COUNT 4.6 10^3/uL (4.0-10.0)
[2023-11-24 07:43] LABS: ALBUMIN 2.4 G/DL (3.2-5.2); CALCIUM LEVEL 8.1 MG/DL (8.3-10.6); CREATININE FOR GFR 2.58 MG/DL (0.55-1.30); GLOMERULAR FILTRATION RATE 19.1 (>39); PHOSPHORUS LEVEL 3.6 MG/DL (2.4-5.1); POTASSIUM SERUM 4.6 MMOL/L (3.5-5.1)
[2023-11-24 07:58] LABS: INR 1.84; PROTHROMBIN TIME 20.6 SECONDS (12.5-14.5)
[2023-11-24] MEDS: LEVEMIR (INSULIN DETEMIR) 1 UNITS/0.01ML SC SCH (08:13)
[2023-11-24] MEDS: CYANOCOBALAMIN 500 MCG TAB PO SCH (08:13)
[2023-11-24] MEDS: FOLIC ACID 1MG TAB PO SCH (08:14)
[2023-11-24] MEDS: FEBUXOSTAT 40 MG TABLET (ULORIC) PO SCH (08:15)
[2023-11-24] MEDS: LETROZOLE 2.5 MG TAB PO SCH (08:15)
[2023-11-25 03:27] VITALS: BP 160/68; TEMP 97.4; O2SAT 98
[2023-11-25 07:42] VITALS: BP 178/82; TEMP 98.1; O2SAT 96
[2023-11-25 07:46] LABS: HEMATOCRIT 37.2 % (36.0-47.0); HEMOGLOBIN 11.8 g/dl (12.0-15.5); MEAN CORPUSCULAR HEMOGLOBIN 30.4 pg (27.0-33.0); MEAN CORPUSCULAR HGB CONC 31.7 g/dl (32.0-36.5); MEAN CORPUSCULAR VOLUME 95.9 fl (80.0-96.0); PLATELET COUNT, AUTOMATED 201 10^3/uL (150-450); RED BLOOD COUNT 3.88 10^6/uL (4.00-5.40); WHITE BLOOD COUNT 4.3 10^3/uL (4.0-10.0)
[2023-11-25 07:55] LABS: INR 2.17; PROTHROMBIN TIME 23.4 SECONDS (12.5-14.5)
[2023-11-25 08:06] LABS: CALCIUM LEVEL 8.3 MG/DL (8.3-10.6); CREATININE FOR GFR 3.15 MG/DL (0.55-1.30); GLOMERULAR FILTRATION RATE 15.2 (>39); POTASSIUM SERUM 4.8 MMOL/L (3.5-5.1)
[2023-11-25] MEDS: VITAMIN D 1,000 INTERNATIONAL UNITS TABLET PO SCH (08:31)
[2023-11-25 11:50] VITALS: BP 192/76; TEMP 98.7; O2SAT 97
[2023-11-25 15:41] VITALS: BP 180/70; TEMP 98.2; O2SAT 97
[2023-11-25 20:06] VITALS: BP 164/60; TEMP 99.8; O2SAT 96
[2023-11-26 03:36] VITALS: BP 170/60; TEMP 98.7; O2SAT 98
[2023-11-26 05:55] LABS: HEMOGLOBIN 11.3 g/dl (12.0-15.5); MEAN CORPUSCULAR HEMOGLOBIN 30.6 pg (27.0-33.0); MEAN CORPUSCULAR HGB CONC 32.3 g/dl (32.0-36.5); MEAN CORPUSCULAR VOLUME 94.9 fl (80.0-96.0); PLATELET COUNT, AUTOMATED 201 10^3/uL (150-450); RED BLOOD COUNT 3.69 10^6/uL (4.00-5.40); WHITE BLOOD COUNT 5.4 10^3/uL (4.0-10.0)
[2023-11-26] MEDS ORDERED: SODIUM CHLORIDE 0.9% 1000ML IV PRN (06:00)
[2023-11-26] MEDS ORDERED: HEPARIN 1,000UNITS/ML 10ML VIAL (FOR RADIOLOGY & DIALYSIS ONLY) IV PRN (06:00)
[2023-11-26 06:16] LABS: CALCIUM LEVEL 8.4 MG/DL (8.3-10.6); CREATININE FOR GFR 3.56 MG/DL (0.55-1.30); GLOMERULAR FILTRATION RATE 13.2 (>39); POTASSIUM SERUM 5.5 MMOL/L (3.5-5.1)
[2023-11-26 06:20] LABS: INR 1.93; PROTHROMBIN TIME 21.4 SECONDS (12.5-14.5)
[2023-11-26 07:38] VITALS: BP 172/60; TEMP 98.6; O2SAT 97
[2023-11-26] MEDS: WARFARIN SOD 2.5MG TAB PO SCH (18:13)
[2023-11-26 18:29] VITALS: BP 138/50
[2023-11-26 18:44] VITALS: BP 164/53; TEMP 97.7
[2023-11-26 20:00] VITALS: BP 128/49; TEMP 98.8; O2SAT 97
[2023-11-26] MEDS: ACETAMINOPHEN 500 MG TAB PO SCH (23:13)
[2023-11-27 04:25] VITALS: BP 148/52; TEMP 98.8; O2SAT 96
[2023-11-27 06:09] LABS: HEMATOCRIT 35.8 % (36.0-47.0); HEMOGLOBIN 11.3 g/dl (12.0-15.5); MEAN CORPUSCULAR HEMOGLOBIN 30.3 pg (27.0-33.0); MEAN CORPUSCULAR HGB CONC 31.6 g/dl (32.0-36.5); PLATELET COUNT, AUTOMATED 158 10^3/uL (150-450); RED BLOOD COUNT 3.73 10^6/uL (4.00-5.40); WHITE BLOOD COUNT 3.3 10^3/uL (4.0-10.0)
[2023-11-27 06:25] LABS: INR 1.43
[2023-11-27 06:58] LABS: CALCIUM LEVEL 7.9 MG/DL (8.3-10.6); CREATININE FOR GFR 2.27 MG/DL (0.55-1.30); GLOMERULAR FILTRATION RATE 22.2 (>39); POTASSIUM SERUM 5.8 MMOL/L (3.5-5.1)
[2023-11-27 16:50] VITALS: BP 155/58
[2023-11-27 19:24] VITALS: BP 148/46; TEMP 98.6; O2SAT 97
[2023-11-28] VITALS (7 sets, daily range): BP systolic 125–194; BP diastolic 44–62; TEMP 97.7–99; O2SAT 94–96
[2023-11-28] MEDS: oxyCODONE 5MG TAB PO ONE (04:58)
[2023-11-28] MEDS ORDERED: HEPARIN 1,000UNITS/ML 10ML VIAL (FOR RADIOLOGY & DIALYSIS ONLY) IV PRN (06:00)
[2023-11-28] MEDS ORDERED: SODIUM CHLORIDE 0.9% 1000ML IV PRN (06:00)
[2023-11-28 06:34] LABS: HEMOGLOBIN 10.3 g/dl (12.0-15.5); MEAN CORPUSCULAR HGB CONC 31.2 g/dl (32.0-36.5); MEAN CORPUSCULAR VOLUME 96.2 fl (80.0-96.0); PLATELET COUNT, AUTOMATED 173 10^3/uL (150-450); RED BLOOD COUNT 3.43 10^6/uL (4.00-5.40); WHITE BLOOD COUNT 4.1 10^3/uL (4.0-10.0)
[2023-11-28 06:45] LABS: INR 1.47; PROTHROMBIN TIME 17.4 SECONDS (12.5-14.5)
[2023-11-28 07:04] LABS: BLOOD UREA NITROGEN 61 MG/DL (9-23); CALCIUM LEVEL 8.6 MG/DL (8.3-10.6); CARBON DIOXIDE LEVEL 26 MMOL/L (20-31); CHLORIDE LEVEL 98 MMOL/L (98-107); CREATININE FOR GFR 3.34 MG/DL (0.55-1.30); GLOMERULAR FILTRATION RATE 14.2 (>39); GLUCOSE, FASTING 196 MG/DL (74-106); POTASSIUM SERUM 5.2 MMOL/L (3.5-5.1); SODIUM LEVEL 130 MMOL/L (136-145)
[2023-11-28] MEDS: FIORICET TAB PO ONE (13:52)
[2023-11-28 15:25] LABS: C REACTIVE PROTEIN QUANTITATIV < 0.40 MG/DL (<1.0)
[2023-11-28 15:32] LABS: ERYTHROCYTE SEDIMENTATION RATE 34 mm/hr (0-30)
[2023-11-28] MEDS ORDERED: SODIUM CHLORIDE 0.9% INJ 10 ML SYR IV PRN (15:40)
[2023-11-28] MEDS: SODIUM CHLORIDE 0.9% INJ 10 ML SYR IV SCH (16:55)
[2023-11-28] MEDS: WARFARIN SOD 2.5MG TAB PO SCH (18:17)
[2023-11-28] MEDS ORDERED: VALPROIC ACID 250MG CAP PO SCH (21:00)
[2023-11-28] MEDS: ACETAMINOPHEN 500 MG TAB PO PRN (21:11)
[2023-11-28] MEDS: VALPROIC ACID 250MG/5ML SOL ORAL SYRINGE PO SCH (21:11)
[2023-11-28] MEDS ORDERED: HEPARIN SOD (PORCINE) 5000UNITS/ML 1ML VIAL/SYRINGE IV PRN (22:30)
[2023-11-28 23:23] LABS: HEMATOCRIT 29.9 % (36.0-47.0); HEMOGLOBIN 9.5 g/dl (12.0-15.5); MEAN CORPUSCULAR HEMOGLOBIN 30.6 pg (27.0-33.0); MEAN CORPUSCULAR HGB CONC 31.8 g/dl (32.0-36.5); MEAN CORPUSCULAR VOLUME 96.5 fl (80.0-96.0); PLATELET COUNT, AUTOMATED 150 10^3/uL (150-450); WHITE BLOOD COUNT 3.5 10^3/uL (4.0-10.0)
[2023-11-28] MEDS: HEPARIN DRIP 25,000 UNITS in IV 1 EA IV SCH (23:42)
[2023-11-29] VITALS (20 sets, daily range): BP systolic 122–218; BP diastolic 54–88; TEMP 97.5–98.6; O2SAT 95–99
[2023-11-29 05:52] LABS: HEMATOCRIT 31.1 % (36.0-47.0); HEMOGLOBIN 9.8 g/dl (12.0-15.5); MEAN CORPUSCULAR HEMOGLOBIN 30.5 pg (27.0-33.0); MEAN CORPUSCULAR HGB CONC 31.5 g/dl (32.0-36.5); MEAN CORPUSCULAR VOLUME 96.9 fl (80.0-96.0); PLATELET COUNT, AUTOMATED 152 10^3/uL (150-450); RED BLOOD COUNT 3.21 10^6/uL (4.00-5.40); WHITE BLOOD COUNT 3.8 10^3/uL (4.0-10.0)
[2023-11-29 06:02] LABS: INR 1.43
[2023-11-29 06:03] LABS: PARTIAL THROMBOPLASTIN TIME 87.3 SECONDS (24.8-34.2)
[2023-11-29] MEDS ORDERED: hydrALAZINE 20MG/ML 1ML VIAL As Ordered ONE (06:08)
[2023-11-29 06:16] LABS: CREATININE FOR GFR 2.06 MG/DL (0.55-1.30); GLOMERULAR FILTRATION RATE 24.8 (>39); POTASSIUM SERUM 4.1 MMOL/L (3.5-5.1)
[2023-11-29] MEDS ORDERED: DARBEPOETIN 100MCG/0.5ML *DIALYSIS* SYRINGE IV SCH (09:00)
[2023-11-29] MEDS ORDERED: HYOSCYAMINE SULFATE 0.125 MG SUBL TABLET PO PRN (15:20)
[2023-11-29] MEDS ORDERED: LORazepam 1 MG TAB PO PRN (15:20)
[2023-11-29] MEDS ORDERED: MORPHINE 10MG/0.5ML ORAL CONCENTRATE SOLUTION U/D SL PRN (15:20)
[2023-11-29] MEDS ORDERED: WARFARIN SOD 2.5MG TAB PO SCH (17:00)
[2023-11-29] MEDS ORDERED: PRAZOSIN 1 MG CAP PO SCH (21:00)
[2023-11-30] MEDS ORDERED: LIDOCAINE 1% SDV 5ML VIAL SC PRN (06:00)
[2023-11-30] MEDS ORDERED: SODIUM CHLORIDE 0.9% 1000ML IV PRN (06:00)
[2023-11-30] MEDS ORDERED: HEPARIN 1,000UNITS/ML 10ML VIAL (FOR RADIOLOGY & DIALYSIS ONLY) IV PRN (06:40)
[2023-12-01] MEDS ORDERED: WARFARIN SOD 2.5MG TAB PO SCH (17:00)
[2023-12-02] MEDS ORDERED: GLUCAGON INJ 1MG VIAL SC PRN (15:30)
[2023-12-02] MEDS ORDERED: DEXTROSE 50% 50ML SYRINGE IV PRN (15:30)
[2023-12-02] MEDS ORDERED: GLUCOSE 4GM CHEW TABLET PO PRN (15:30)
[2023-12-02 15:38] VITALS: BP 214/56; O2SAT 97
[2023-12-02 16:22] LABS: INR 1.21; PROTHROMBIN TIME 14.9 SECONDS (12.5-14.5)
[2023-12-02 16:24] LABS: PARTIAL THROMBOPLASTIN TIME 34.7 SECONDS (24.8-34.2)
[2023-12-02] MEDS: WARFARIN SOD 2MG TAB PO SCH (17:23)
[2023-12-02] MEDS: **hydrALAZINE HCL** 25 MG TAB PO SCH (17:23)
[2023-12-02] MEDS: cloNIDine 0.2 MG TAB PO ONE (17:23)
[2023-12-02] MEDS: INSULIN LISPRO (NovoLOG) PER UNIT SC SCH (17:24)
[2023-12-02 17:26] VITALS: TEMP 98.1
[2023-12-02 19:57] VITALS: BP 121/47; TEMP 98.2; O2SAT 96
[2023-12-02] MEDS: LEVEMIR (INSULIN DETEMIR) 1 UNITS/0.01ML SC SCH (21:14)
[2023-12-02] MEDS: CARVedilol 6.25 MG TAB PO SCH (21:15)
[2023-12-03 06:47] VITALS: BP 156/47; TEMP 97.5; O2SAT 97
[2023-12-03 06:51] LABS: BASO % 0.2 % (0.0-1.0); EOS # 0.3 10^3/uL (0.0-0.5); EOS % 3.1 % (0.0-3.0); HEMATOCRIT 30.3 % (36.0-47.0); HEMOGLOBIN 9.7 g/dl (12.0-15.5); LYMPH # 0.5 10^3/uL (1.5-5.0); LYMPH % 5.5 % (24.0-44.0); MEAN CORPUSCULAR HEMOGLOBIN 31.3 pg (27.0-33.0); MEAN CORPUSCULAR VOLUME 97.7 fl (80.0-96.0); MONO % 10.6 % (2.0-8.0); NEUTROPHILS # 7.5 10^3/uL (1.5-8.5); NEUTROPHILS % 80.4 % (36.0-66.0); PLATELET COUNT, AUTOMATED 178 10^3/uL (150-450); WHITE BLOOD COUNT 9.3 10^3/uL (4.0-10.0)
[2023-12-03] MEDS ORDERED: HEPARIN 1,000UNITS/ML 10ML VIAL (FOR RADIOLOGY & DIALYSIS ONLY) XX SCH (07:05)
[2023-12-03] MEDS ORDERED: LIDOCAINE 1% SDV 5ML VIAL SC PRN (07:05)
[2023-12-03] MEDS ORDERED: SODIUM CHLORIDE 0.9% 1000ML IV PRN (07:05)
[2023-12-03] MEDS ORDERED: HEPARIN 1,000UNITS/ML 10ML VIAL (FOR RADIOLOGY & DIALYSIS ONLY) IV PRN (07:05)
[2023-12-03] MEDS: FEBUXOSTAT 40 MG TABLET (ULORIC) PO SCH (07:18)
[2023-12-03 07:23] LABS: CALCIUM LEVEL 8.4 MG/DL (8.3-10.6); CREATININE FOR GFR 3.58 MG/DL (0.55-1.30); GLOMERULAR FILTRATION RATE 13.1 (>39); POTASSIUM SERUM 5.4 MMOL/L (3.5-5.1)
[2023-12-03 14:00] VITALS: BP 172/60; TEMP 97.7; O2SAT 97
[2023-12-03 20:25] VITALS: BP 142/70; TEMP 97.3; O2SAT 97
[2023-12-04 06:12] VITALS: BP 161/56; TEMP 97.9; O2SAT 93
[2023-12-04 06:38] LABS: BASO % 0.7 % (0.0-1.0); EOS # 0.3 10^3/uL (0.0-0.5); EOS % 6.2 % (0.0-3.0); HEMATOCRIT 36.8 % (36.0-47.0); HEMOGLOBIN 11.6 g/dl (12.0-15.5); LYMPH # 0.4 10^3/uL (1.5-5.0); LYMPH % 9.7 % (24.0-44.0); MEAN CORPUSCULAR HEMOGLOBIN 30.6 pg (27.0-33.0); MEAN CORPUSCULAR HGB CONC 31.5 g/dl (32.0-36.5); MEAN CORPUSCULAR VOLUME 97.1 fl (80.0-96.0); MONO # 0.5 10^3/uL (0.0-0.8); NEUTROPHILS # 3.1 10^3/uL (1.5-8.5); NEUTROPHILS % 70.9 % (36.0-66.0); PLATELET COUNT, AUTOMATED 180 10^3/uL (150-450); RED BLOOD COUNT 3.79 10^6/uL (4.00-5.40); WHITE BLOOD COUNT 4.4 10^3/uL (4.0-10.0)
[2023-12-04 07:06] LABS: CALCIUM LEVEL 8.3 MG/DL (8.3-10.6); CREATININE FOR GFR 2.15 MG/DL (0.55-1.30); GLOMERULAR FILTRATION RATE 23.6 (>39); POTASSIUM SERUM 4.5 MMOL/L (3.5-5.1)
[2023-12-04] MEDS: SODIUM CHLORIDE 0.9% INJ 10 ML SYR IV SCH (11:31)
[2023-12-04] MEDS: **hydrALAZINE HCL** 25 MG TAB PO ONE (11:33)
[2023-12-04 14:00] VITALS: BP 155/54; TEMP 97.5; O2SAT 95
[2023-12-04] MEDS: **hydrALAZINE** 50 MG TAB PO SCH (14:00)
[2023-12-04 19:40] VITALS: BP 168/57; TEMP 98.6; O2SAT 97
[2023-12-04 23:55] VITALS: BP 133/48
[2023-12-05 05:45] VITALS: BP 151/59; TEMP 97.3; O2SAT 99
[2023-12-05] MEDS ORDERED: HEPARIN 1,000UNITS/ML 10ML VIAL (FOR RADIOLOGY & DIALYSIS ONLY) XX SCH (07:10)
[2023-12-05] MEDS ORDERED: SODIUM CHLORIDE 0.9% 1000ML IV PRN (07:10)
[2023-12-05] MEDS ORDERED: HEPARIN 1,000UNITS/ML 10ML VIAL (FOR RADIOLOGY & DIALYSIS ONLY) IV PRN (07:10)
[2023-12-05 07:29] LABS: BASO # 0.1 10^3/uL (0.0-0.2); BASO % 1.1 % (0.0-1.0); EOS # 0.3 10^3/uL (0.0-0.5); EOS % 5.9 % (0.0-3.0); HEMATOCRIT 31.3 % (36.0-47.0); LYMPH # 0.5 10^3/uL (1.5-5.0); MEAN CORPUSCULAR HEMOGLOBIN 31.1 pg (27.0-33.0); MEAN CORPUSCULAR HGB CONC 31.9 g/dl (32.0-36.5); MEAN CORPUSCULAR VOLUME 97.2 fl (80.0-96.0); MONO # 0.6 10^3/uL (0.0-0.8); MONO % 13.6 % (2.0-8.0); NEUTROPHILS % 67.2 % (36.0-66.0); PLATELET COUNT, AUTOMATED 188 10^3/uL (150-450); RED BLOOD COUNT 3.22 10^6/uL (4.00-5.40); WHITE BLOOD COUNT 4.4 10^3/uL (4.0-10.0)
[2023-12-05 07:53] LABS: INR 1.27; PROTHROMBIN TIME 15.5 SECONDS (12.5-14.5)
[2023-12-05 07:57] LABS: CALCIUM LEVEL 8.1 MG/DL (8.3-10.6); CREATININE FOR GFR 2.69 MG/DL (0.55-1.30); GLOMERULAR FILTRATION RATE 18.2 (>39); POTASSIUM SERUM 4.7 MMOL/L (3.5-5.1)
[2023-12-05] MEDS: DARBEPOETIN 100MCG/0.5ML *DIALYSIS* SYRINGE IV SCH (09:01)
[2023-12-06] MEDS: WARFARIN SOD 4MG TAB PO SCH (17:35)
[2023-12-06 20:30] VITALS: BP 128/47; TEMP 98.3; O2SAT 97
[2023-12-07 05:58] VITALS: BP 142/51; TEMP 97.8; O2SAT 96
[2023-12-07 06:25] LABS: BASO # 0.1 10^3/uL (0.0-0.2); BASO % 1.3 % (0.0-1.0); EOS # 0.3 10^3/uL (0.0-0.5); EOS % 6.8 % (0.0-3.0); HEMATOCRIT 30.5 % (36.0-47.0); HEMOGLOBIN 9.8 g/dl (12.0-15.5); LYMPH # 0.7 10^3/uL (1.5-5.0); LYMPH % 16.6 % (24.0-44.0); MEAN CORPUSCULAR HEMOGLOBIN 31.1 pg (27.0-33.0); MEAN CORPUSCULAR HGB CONC 32.1 g/dl (32.0-36.5); MEAN CORPUSCULAR VOLUME 96.8 fl (80.0-96.0); MONO # 0.7 10^3/uL (0.0-0.8); MONO % 16.6 % (2.0-8.0); NEUTROPHILS # 2.3 10^3/uL (1.5-8.5); NEUTROPHILS % 58.2 % (36.0-66.0); PLATELET COUNT, AUTOMATED 179 10^3/uL (150-450); RED BLOOD COUNT 3.15 10^6/uL (4.00-5.40)
[2023-12-07 06:37] LABS: INR 1.27; PROTHROMBIN TIME 15.5 SECONDS (12.5-14.5)
[2023-12-07 06:38] LABS: PARTIAL THROMBOPLASTIN TIME 36.4 SECONDS (24.8-34.2)
[2023-12-07 06:53] LABS: CREATININE FOR GFR 2.6 MG/DL (0.55-1.30); POTASSIUM SERUM 4.8 MMOL/L (3.5-5.1)
[2023-12-07] MEDS ORDERED: HEPARIN 1,000UNITS/ML 10ML VIAL (FOR RADIOLOGY & DIALYSIS ONLY) IV PRN (07:00)
[2023-12-07] MEDS ORDERED: HEPARIN 1,000UNITS/ML 10ML VIAL (FOR RADIOLOGY & DIALYSIS ONLY) XX SCH (07:00)
[2023-12-07] MEDS ORDERED: SODIUM CHLORIDE 0.9% 1000ML IV PRN (07:00)
[2023-12-07 14:45] VITALS: BP 156/53; TEMP 97.5; O2SAT 96
[2023-12-07 22:00] VITALS: BP 158/65; TEMP 97.2; O2SAT 97
[2023-12-08 05:40] VITALS: BP 152/50; TEMP 96.6; O2SAT 99
[2023-12-09 05:46] VITALS: BP 160/50; TEMP 96.9; O2SAT 98
[2023-12-09 07:12] LABS: CALCIUM LEVEL 8.7 MG/DL (8.3-10.6); CREATININE FOR GFR 2.55 MG/DL (0.55-1.30); GLOMERULAR FILTRATION RATE 19.4 (>39); POTASSIUM SERUM 5.8 MMOL/L (3.5-5.1)
[2023-12-09 07:33] LABS: HEMATOCRIT 36.5 % (36.0-47.0); HEMOGLOBIN 11.6 g/dl (12.0-15.5); MEAN CORPUSCULAR HEMOGLOBIN 31.1 pg (27.0-33.0); MEAN CORPUSCULAR HGB CONC 31.8 g/dl (32.0-36.5); MEAN CORPUSCULAR VOLUME 97.9 fl (80.0-96.0); PLATELET COUNT, AUTOMATED 186 10^3/uL (150-450); RED BLOOD COUNT 3.73 10^6/uL (4.00-5.40); WHITE BLOOD COUNT 5.9 10^3/uL (4.0-10.0)
[2023-12-09 07:46] LABS: INR 1.23; PROTHROMBIN TIME 15.1 SECONDS (12.5-14.5)
[2023-12-09 07:47] LABS: PARTIAL THROMBOPLASTIN TIME 39.1 SECONDS (24.8-34.2)
[2023-12-10] MEDS ORDERED: SODIUM CHLORIDE 0.9% 1000ML IV PRN (06:00)
[2023-12-10] MEDS ORDERED: LIDOCAINE 1% SDV 5ML VIAL SC PRN (06:00)
[2023-12-10] MEDS ORDERED: HEPARIN 1,000UNITS/ML 10ML VIAL (FOR RADIOLOGY & DIALYSIS ONLY) IV PRN (06:00)
[2023-12-10] MEDS: WARFARIN SOD 2MG TAB PO SCH (18:32)
[2023-12-11 05:57] VITALS: BP 127/49; TEMP 97.1; O2SAT 98
[2023-12-11 21:25] VITALS: BP_SYST 178; BP_DIAS 58; BP_DIAS 62
[2023-12-11 23:35] VITALS: BP 133/48
[2023-12-12 05:48] VITALS: BP 132/51; TEMP 96.7; O2SAT 98
[2023-12-12] MEDS ORDERED: SODIUM CHLORIDE 0.9% 1000ML IV PRN (06:00)
[2023-12-12] MEDS ORDERED: HEPARIN 1,000UNITS/ML 10ML VIAL (FOR RADIOLOGY & DIALYSIS ONLY) IV PRN (06:00)
[2023-12-12] MEDS ORDERED: LIDOCAINE 1% SDV 5ML VIAL SC PRN (06:00)
[2023-12-12 06:54] LABS: BASO # 0.1 10^3/uL (0.0-0.2); BASO % 1.1 % (0.0-1.0); EOS # 0.3 10^3/uL (0.0-0.5); HEMATOCRIT 36.5 % (36.0-47.0); HEMOGLOBIN 11.7 g/dl (12.0-15.5); LYMPH # 0.7 10^3/uL (1.5-5.0); LYMPH % 15.2 % (24.0-44.0); MEAN CORPUSCULAR HEMOGLOBIN 31.5 pg (27.0-33.0); MEAN CORPUSCULAR HGB CONC 32.1 g/dl (32.0-36.5); MEAN CORPUSCULAR VOLUME 98.1 fl (80.0-96.0); MONO # 0.7 10^3/uL (0.0-0.8); MONO % 16.5 % (2.0-8.0); NEUTROPHILS # 2.7 10^3/uL (1.5-8.5); NEUTROPHILS % 60.8 % (36.0-66.0); PLATELET COUNT, AUTOMATED 181 10^3/uL (150-450); RED BLOOD COUNT 3.72 10^6/uL (4.00-5.40); WHITE BLOOD COUNT 4.5 10^3/uL (4.0-10.0)
[2023-12-12 07:05] LABS: INR 1.71; PROTHROMBIN TIME 19.5 SECONDS (12.5-14.5)
[2023-12-12 07:06] LABS: PARTIAL THROMBOPLASTIN TIME 42.1 SECONDS (24.8-34.2)
[2023-12-12 07:09] LABS: CALCIUM LEVEL 8.8 MG/DL (8.3-10.6); CREATININE FOR GFR 2.38 MG/DL (0.55-1.30); POTASSIUM SERUM 4.9 MMOL/L (3.5-5.1)
[2023-12-12 15:08] VITALS: BP 165/52
[2023-12-12] MEDS: WARFARIN SOD 2MG TAB PO SCH (16:16)
[2023-12-12 22:55] VITALS: BP 185/65
[2023-12-12] MEDS: LEVEMIR (INSULIN DETEMIR) 1 UNITS/0.01ML SC SCH (23:01)
[2023-12-13 05:27] LABS: INR 1.94; PROTHROMBIN TIME 21.5 SECONDS (12.5-14.5)
[2023-12-13 05:28] LABS: PARTIAL THROMBOPLASTIN TIME 42.9 SECONDS (24.8-34.2)
[2023-12-13 05:56] VITALS: BP 184/62; TEMP 99.2; O2SAT 97
[2023-12-13 06:44] VITALS: BP 139/52
[2023-12-13] MEDS: WARFARIN SOD 3MG TAB PO SCH (18:17)
[2023-12-13 20:09] VITALS: BP 120/55
[2023-12-14 06:08] VITALS: BP 183/62; TEMP 97.7; O2SAT 99
[2023-12-14] MEDS ORDERED: SODIUM CHLORIDE 0.9% 1000ML IV PRN (06:50)
[2023-12-14] MEDS ORDERED: HEPARIN 1,000UNITS/ML 10ML VIAL (FOR RADIOLOGY & DIALYSIS ONLY) XX SCH (06:50)
[2023-12-14] MEDS ORDERED: HEPARIN 1,000UNITS/ML 10ML VIAL (FOR RADIOLOGY & DIALYSIS ONLY) IV PRN (06:50)
[2023-12-14 07:04] VITALS: BP 156/55
[2023-12-14 07:04] LABS: INR 2.01; PROTHROMBIN TIME 22.1 SECONDS (12.5-14.5)
[2023-12-14 07:05] LABS: PARTIAL THROMBOPLASTIN TIME 42.6 SECONDS (24.8-34.2)
[2023-12-14 20:16] LABS: CREATININE FOR GFR 1.51 MG/DL (0.55-1.30); GLOMERULAR FILTRATION RATE 35.5 (>39); POTASSIUM SERUM 4.1 MMOL/L (3.5-5.1)
[2023-12-15 06:00] VITALS: BP 127/45; TEMP 96.5; O2SAT 99
[2023-12-15] MEDS: WARFARIN SOD 2.5MG TAB PO SCH (17:39)
[2023-12-16 06:00] VITALS: BP 138/48; TEMP 96.9; O2SAT 98
[2023-12-16 20:13] VITALS: BP 169/58
[2023-12-16 21:00] VITALS: BP 162/52
[2023-12-17 06:01] VITALS: BP 136/52; TEMP 96.8; O2SAT 98
[2023-12-17 06:16] LABS: INR 1.94; PARTIAL THROMBOPLASTIN TIME 41.9 SECONDS (24.8-34.2); PROTHROMBIN TIME 21.5 SECONDS (12.5-14.5)
[2023-12-17] MEDS ORDERED: SODIUM CHLORIDE 0.9% 1000ML IV PRN (06:45)
[2023-12-17] MEDS ORDERED: HEPARIN 1,000UNITS/ML 10ML VIAL (FOR RADIOLOGY & DIALYSIS ONLY) XX SCH (06:45)
[2023-12-17] MEDS ORDERED: HEPARIN 1,000UNITS/ML 10ML VIAL (FOR RADIOLOGY & DIALYSIS ONLY) IV PRN (06:45)
[2023-12-17 13:13] LABS: HEMATOCRIT 36.9 % (36.0-47.0); HEMOGLOBIN 11.8 g/dl (12.0-15.5); MEAN CORPUSCULAR HEMOGLOBIN 31.3 pg (27.0-33.0); MEAN CORPUSCULAR VOLUME 97.9 fl (80.0-96.0); PLATELET COUNT, AUTOMATED 172 10^3/uL (150-450); RED BLOOD COUNT 3.77 10^6/uL (4.00-5.40); WHITE BLOOD COUNT 4.6 10^3/uL (4.0-10.0)
[2023-12-17 13:47] LABS: CALCIUM LEVEL 8.5 MG/DL (8.3-10.6); CREATININE FOR GFR 1.22 MG/DL (0.55-1.30); GLOMERULAR FILTRATION RATE 45.4 (>39)
[2023-12-17 14:00] VITALS: BP 142/68
[2023-12-17 20:18] VITALS: BP 174/58
[2023-12-18 05:28] VITALS: BP 175/55; TEMP 98.5; O2SAT 98
[2023-12-18 06:32] VITALS: BP 156/50
[2023-12-18 07:30] VITALS: BP 182/60; TEMP 98.5; O2SAT 98
[2023-12-18 13:08] VITALS: BP 172/58
[2023-12-18 17:33] VITALS: BP 148/58
[2023-12-18] MEDS: WARFARIN SOD 3MG TAB PO SCH (17:34)
[2023-12-18 22:00] VITALS: BP 167/49; O2SAT 70
[2023-12-19 06:00] VITALS: BP 139/50; TEMP 96.8; O2SAT 99
[2023-12-19] MEDS ORDERED: HEPARIN 1,000UNITS/ML 10ML VIAL (FOR RADIOLOGY & DIALYSIS ONLY) XX SCH (06:40)
[2023-12-19] MEDS ORDERED: SODIUM CHLORIDE 0.9% 1000ML IV PRN (06:40)
[2023-12-19] MEDS ORDERED: HEPARIN 1,000UNITS/ML 10ML VIAL (FOR RADIOLOGY & DIALYSIS ONLY) IV PRN (06:40)
[2023-12-19 21:20] VITALS: BP 149/50; TEMP 97; O2SAT 96
[2023-12-20 06:00] VITALS: BP 116/53; TEMP 97.7; O2SAT 98
[2023-12-20 06:14] LABS: HEMATOCRIT 31.5 % (36.0-47.0); MEAN CORPUSCULAR HEMOGLOBIN 31.4 pg (27.0-33.0); MEAN CORPUSCULAR HGB CONC 31.7 g/dl (32.0-36.5); MEAN CORPUSCULAR VOLUME 99.1 fl (80.0-96.0); PLATELET COUNT, AUTOMATED 162 10^3/uL (150-450); RED BLOOD COUNT 3.18 10^6/uL (4.00-5.40); WHITE BLOOD COUNT 4.5 10^3/uL (4.0-10.0)
[2023-12-20 06:25] LABS: INR 1.69; PROTHROMBIN TIME 19.3 SECONDS (12.5-14.5)
[2023-12-20 06:26] LABS: PARTIAL THROMBOPLASTIN TIME 35.8 SECONDS (24.8-34.2)
[2023-12-20 06:36] LABS: CALCIUM LEVEL 8.2 MG/DL (8.3-10.6); GLOMERULAR FILTRATION RATE 25.7 (>39); POTASSIUM SERUM 4.6 MMOL/L (3.5-5.1)
[2023-12-20] MEDS: WARFARIN SOD 4MG TAB PO SCH (17:03)
[2023-12-21 06:00] VITALS: BP 107/36; TEMP 97.4; O2SAT 97
[2023-12-21] MEDS ORDERED: HEPARIN 1,000UNITS/ML 10ML VIAL (FOR RADIOLOGY & DIALYSIS ONLY) XX SCH (06:30)
[2023-12-21] MEDS ORDERED: HEPARIN 1,000UNITS/ML 10ML VIAL (FOR RADIOLOGY & DIALYSIS ONLY) IV PRN (06:30)
[2023-12-21] MEDS ORDERED: SODIUM CHLORIDE 0.9% 1000ML IV PRN (06:30)
[2023-12-21 07:40] VITALS: BP 152/60; TEMP 97.6; O2SAT 99
[2023-12-21 14:00] VITALS: BP 160/50; TEMP 97.4; O2SAT 99
[2023-12-21 21:40] VITALS: BP 147/47
[2023-12-23 05:43] VITALS: BP 124/45; TEMP 96.8; O2SAT 98
[2023-12-23 14:00] VITALS: BP 155/51
[2023-12-23 20:34] VITALS: BP 181/56
[2023-12-24] MEDS ORDERED: SODIUM CHLORIDE 0.9% 1000ML IV PRN (06:00)
[2023-12-24] MEDS ORDERED: HEPARIN 1,000UNITS/ML 10ML VIAL (FOR RADIOLOGY & DIALYSIS ONLY) IV PRN (06:00)
[2023-12-24 06:16] VITALS: BP 129/46; TEMP 97.7; O2SAT 99
[2023-12-24] MEDS: DARBEPOETIN 100MCG/0.5ML *DIALYSIS* SYRINGE IV SCH (08:25)
[2023-12-24 12:45] LABS: HEMATOCRIT 36.1 % (36.0-47.0); HEMOGLOBIN 11.7 g/dl (12.0-15.5); MEAN CORPUSCULAR HEMOGLOBIN 31.5 pg (27.0-33.0); MEAN CORPUSCULAR HGB CONC 32.4 g/dl (32.0-36.5); PLATELET COUNT, AUTOMATED 169 10^3/uL (150-450); RED BLOOD COUNT 3.72 10^6/uL (4.00-5.40); WHITE BLOOD COUNT 5.3 10^3/uL (4.0-10.0)
[2023-12-24 13:23] LABS: CALCIUM LEVEL 8.2 MG/DL (8.3-10.6); CREATININE FOR GFR 1.04 MG/DL (0.55-1.30); GLOMERULAR FILTRATION RATE 54.6 (>39); POTASSIUM SERUM 3.5 MMOL/L (3.5-5.1)
[2023-12-24 15:14] VITALS: BP 171/60
[2023-12-24 20:11] VITALS: BP 165/69; TEMP 97.3; O2SAT 96
[2023-12-25 05:30] VITALS: BP 146/52; TEMP 98; O2SAT 96
[2023-12-25 06:50] LABS: INR 1.86; PROTHROMBIN TIME 20.8 SECONDS (12.5-14.5)
[2023-12-25 06:51] LABS: PARTIAL THROMBOPLASTIN TIME 34.3 SECONDS (24.8-34.2)
[2023-12-25 08:00] VITALS: BP 148/51; TEMP 97.7
[2023-12-25 10:07] LABS: CLOSTRIDIUM DIFFICILE PCR POSITIVE (NEGATIVE)
[2023-12-25 14:00] VITALS: BP 196/57; TEMP 97; O2SAT 97
[2023-12-25] MEDS: WARFARIN SOD 5MG TAB PO SCH (18:40)
[2023-12-25] MEDS: ANALGESIC BALM CRM 3OZ TOP SCH (18:41)
[2023-12-25] MEDS: PINK BISMUTH SUSP 524MG/30ML ORAL SYRINGE PO SCH (18:41)
[2023-12-26 05:27] VITALS: BP 125/43; TEMP 96.9; O2SAT 97
[2023-12-26] MEDS ORDERED: SODIUM CHLORIDE 0.9% 1000ML IV PRN (06:00)
[2023-12-26] MEDS ORDERED: HEPARIN 1,000UNITS/ML 10ML VIAL (FOR RADIOLOGY & DIALYSIS ONLY) IV PRN (06:00)
[2023-12-26 07:13] LABS: BASO # 0.1 10^3/uL (0.0-0.2); BASO % 1.2 % (0.0-1.0); EOS # 0.2 10^3/uL (0.0-0.5); EOS % 2.8 % (0.0-3.0); HEMATOCRIT 41.1 % (36.0-47.0); LYMPH # 0.5 10^3/uL (1.5-5.0); LYMPH % 6.2 % (24.0-44.0); MEAN CORPUSCULAR HEMOGLOBIN 31.4 pg (27.0-33.0); MEAN CORPUSCULAR HGB CONC 31.6 g/dl (32.0-36.5); MEAN CORPUSCULAR VOLUME 99.3 fl (80.0-96.0); MONO % 11.3 % (2.0-8.0); NEUTROPHILS # 6.7 10^3/uL (1.5-8.5); PLATELET COUNT, AUTOMATED 210 10^3/uL (150-450); RED BLOOD COUNT 4.14 10^6/uL (4.00-5.40); WHITE BLOOD COUNT 8.6 10^3/uL (4.0-10.0)
[2023-12-26 07:24] LABS: INR 2.5; PROTHROMBIN TIME 26.1 SECONDS (12.5-14.5)
[2023-12-26 07:27] LABS: CALCIUM LEVEL 8.6 MG/DL (8.3-10.6); CREATININE FOR GFR 2.61 MG/DL (0.55-1.30); GLOMERULAR FILTRATION RATE 18.9 (>39); MAGNESIUM LEVEL 1.8 MG/DL (1.8-2.4); PHOSPHORUS LEVEL 6.7 MG/DL (2.4-5.1); POTASSIUM SERUM 5.5 MMOL/L (3.5-5.1); PTH INTACT 122.6 PG/ML (18.5-88.0)
[2023-12-26] MEDS: (RENVELA) SEVELAMER **CARBONate** 800 MG TAB PO SCH (12:47)
[2023-12-26] MEDS: WARFARIN SOD 4MG TAB PO SCH (17:18)
[2023-12-27 06:07] VITALS: BP 159/53; TEMP 97.8; O2SAT 99
[2023-12-28] MEDS ORDERED: HEPARIN 1,000UNITS/ML 10ML VIAL (FOR RADIOLOGY & DIALYSIS ONLY) IV PRN (06:00)
[2023-12-28] MEDS ORDERED: SODIUM CHLORIDE 0.9% 1000ML IV PRN (06:00)
[2023-12-28 06:18] LABS: INR 4.12; PROTHROMBIN TIME 38.3 SECONDS (12.5-14.5)
[2023-12-28 06:19] LABS: PARTIAL THROMBOPLASTIN TIME 45.1 SECONDS (24.8-34.2)
[2023-12-28 06:29] VITALS: BP 161/52; TEMP 96.6; O2SAT 98
[2023-12-28 06:56] VITALS: TEMP 97.5
[2023-12-28] MEDS: LETROZOLE 2.5 MG TAB PO SCH (18:46)
[2023-12-29 06:42] VITALS: BP 103/52; TEMP 97.9; O2SAT 96
[2023-12-29 07:05] LABS: INR 2.67; PROTHROMBIN TIME 27.4 SECONDS (12.5-14.5)
[2023-12-29] MEDS: WARFARIN SOD 4MG TAB PO SCH (17:40)
[2023-12-30 05:40] VITALS: BP 120/60; TEMP 96.9; O2SAT 98
[2023-12-30 06:56] LABS: INR 2.03; PROTHROMBIN TIME 22.2 SECONDS (12.5-14.5)
[2023-12-30 08:32] VITALS: BP 172/60
[2023-12-30 16:05] VITALS: BP 202/70
[2023-12-30] MEDS: **hydrALAZINE** 50 MG TAB PO ONE (16:17)
[2023-12-30 17:20] VITALS: BP 182/60
[2023-12-30 20:00] VITALS: BP 162/58; TEMP 97.9; O2SAT 97
[2023-12-31 06:33] LABS: INR 2.1; PROTHROMBIN TIME 22.8 SECONDS (12.5-14.5)
[2023-12-31] MEDS ORDERED: HEPARIN 1,000UNITS/ML 10ML VIAL (FOR RADIOLOGY & DIALYSIS ONLY) IV PRN (06:40)
[2023-12-31] MEDS ORDERED: HEPARIN 1,000UNITS/ML 10ML VIAL (FOR RADIOLOGY & DIALYSIS ONLY) XX SCH (06:40)
[2023-12-31] MEDS ORDERED: SODIUM CHLORIDE 0.9% 1000ML IV PRN (06:40)
[2023-12-31 12:33] LABS: HEMATOCRIT 39.1 % (36.0-47.0); HEMOGLOBIN 12.6 g/dl (12.0-15.5); MEAN CORPUSCULAR HEMOGLOBIN 31.2 pg (27.0-33.0); MEAN CORPUSCULAR HGB CONC 32.2 g/dl (32.0-36.5); MEAN CORPUSCULAR VOLUME 96.8 fl (80.0-96.0); PLATELET COUNT, AUTOMATED 166 10^3/uL (150-450); RED BLOOD COUNT 4.04 10^6/uL (4.00-5.40); WHITE BLOOD COUNT 3.9 10^3/uL (4.0-10.0)
[2023-12-31 13:18] LABS: GLOMERULAR FILTRATION RATE 57.1 (>39); POTASSIUM SERUM 3.4 MMOL/L (3.5-5.1)
[2023-12-31 19:56] VITALS: BP 152/54
[2024-01-01 05:14] VITALS: BP 162/64; TEMP 98.2; O2SAT 95
[2024-01-01 06:06] LABS: HEMATOCRIT 36.9 % (36.0-47.0); HEMOGLOBIN 11.8 g/dl (12.0-15.5); MEAN CORPUSCULAR HEMOGLOBIN 31.2 pg (27.0-33.0); MEAN CORPUSCULAR VOLUME 97.6 fl (80.0-96.0); PLATELET COUNT, AUTOMATED 163 10^3/uL (150-450); RED BLOOD COUNT 3.78 10^6/uL (4.00-5.40); WHITE BLOOD COUNT 5.2 10^3/uL (4.0-10.0)
[2024-01-01 06:17] LABS: INR 2.13; PROTHROMBIN TIME 23.1 SECONDS (12.5-14.5)
[2024-01-01 06:28] LABS: ALBUMIN 2.7 G/DL (3.2-5.2); CALCIUM LEVEL 8.1 MG/DL (8.3-10.6); CREATININE FOR GFR 2.07 MG/DL (0.55-1.30); GLOMERULAR FILTRATION RATE 24.7 (>39); PHOSPHORUS LEVEL 5.6 MG/DL (2.4-5.1); POTASSIUM SERUM 4.9 MMOL/L (3.5-5.1)
[2024-01-01] MEDS ORDERED: HEPARIN SOD (PORCINE) 5000UNITS/ML 1ML VIAL/SYRINGE IV PRN (07:00)
[2024-01-01] MEDS ORDERED: HEPARIN DRIP 25,000 UNITS in IV 1 EA IV SCH (07:00)
[2024-01-01] MEDS ORDERED: HEPARIN SOD (PORCINE) 5000UNITS/ML 1ML VIAL/SYRINGE IV ONE (07:00)
[2024-01-01] MEDS: ENOXAPARIN 60MG/0.6ML SYRINGE (J1650 PER 10MG) SC SCH (09:05)
[2024-01-01] MEDS: PINK BISMUTH SUSP 524MG/30ML ORAL SYRINGE PO PRN (10:08)
[2024-01-01] MEDS: WARFARIN SOD 5MG TAB PO SCH (18:04)
[2024-01-02 06:00] VITALS: BP 152/50; TEMP 97.3; O2SAT 98
[2024-01-02 06:37] LABS: INR 2.25; PROTHROMBIN TIME 24.1 SECONDS (12.5-14.5)
[2024-01-02] MEDS ORDERED: HEPARIN 1,000UNITS/ML 10ML VIAL (FOR RADIOLOGY & DIALYSIS ONLY) XX SCH (07:15)
[2024-01-02] MEDS ORDERED: HEPARIN 1,000UNITS/ML 10ML VIAL (FOR RADIOLOGY & DIALYSIS ONLY) IV PRN (07:15)
[2024-01-02] MEDS ORDERED: SODIUM CHLORIDE 0.9% 1000ML IV PRN (07:15)
[2024-01-03 06:10] VITALS: BP 158/50; TEMP 98.7; O2SAT 98
[2024-01-03 14:24] VITALS: BP 158/60
[2024-01-04 06:00] VITALS: BP 142/42; TEMP 97.4; O2SAT 98
[2024-01-04] MEDS ORDERED: HEPARIN 1,000UNITS/ML 10ML VIAL (FOR RADIOLOGY & DIALYSIS ONLY) IV PRN (06:00)
[2024-01-04] MEDS ORDERED: SODIUM CHLORIDE 0.9% 1000ML IV PRN (06:00)
[2024-01-04 07:36] LABS: INR 2.68; PROTHROMBIN TIME 27.5 SECONDS (12.5-14.5)
[2024-01-05 06:00] VITALS: BP 134/64; TEMP 98.2; O2SAT 99
[2024-01-05 08:04] LABS: INR 2.22; PROTHROMBIN TIME 23.9 SECONDS (12.5-14.5)
[2024-01-05] MEDS ORDERED: PILL CUTTER 1 EACH XX ONE (08:22)
[2024-01-05] MEDS ORDERED: MORPHINE 2 MG/ML 1ML VIAL IV ONE (15:10)
[2024-01-05] MEDS: PERCOCET 5MG/325MG TAB PO PRN (16:02)
[2024-01-05] MEDS: LIDOCAINE 5% (LIDODERM) PATCH TD SCH (16:02)
[2024-01-05] MEDS: WARFARIN SOD 3MG TAB PO ONE (18:00)
[2024-01-06 06:00] VITALS: BP 148/64; TEMP 98.1; O2SAT 98
[2024-01-06 07:01] LABS: INR 2.51; PROTHROMBIN TIME 26.2 SECONDS (12.5-14.5)
[2024-01-06 20:05] VITALS: BP 157/81; TEMP 97.8; O2SAT 98
[2024-01-07 05:56] VITALS: BP 144/66; TEMP 98.2; O2SAT 98
[2024-01-07] MEDS ORDERED: HEPARIN 1,000UNITS/ML 10ML VIAL (FOR RADIOLOGY & DIALYSIS ONLY) XX SCH (06:00)
[2024-01-07] MEDS ORDERED: SODIUM CHLORIDE 0.9% 1000ML IV PRN (06:00)
[2024-01-07] MEDS ORDERED: HEPARIN 1,000UNITS/ML 10ML VIAL (FOR RADIOLOGY & DIALYSIS ONLY) IV PRN (06:00)
[2024-01-07 06:33] LABS: INR 4.39; PROTHROMBIN TIME 40.3 SECONDS (12.5-14.5)
[2024-01-07 12:51] LABS: HEMATOCRIT 38.2 % (36.0-47.0); HEMOGLOBIN 12.3 g/dl (12.0-15.5); MEAN CORPUSCULAR HEMOGLOBIN 31.1 pg (27.0-33.0); MEAN CORPUSCULAR HGB CONC 32.2 g/dl (32.0-36.5); MEAN CORPUSCULAR VOLUME 96.7 fl (80.0-96.0); PLATELET COUNT, AUTOMATED 155 10^3/uL (150-450); RED BLOOD COUNT 3.95 10^6/uL (4.00-5.40); WHITE BLOOD COUNT 4.4 10^3/uL (4.0-10.0)
[2024-01-07 13:27] LABS: GLOMERULAR FILTRATION RATE 57.1 (>39); POTASSIUM SERUM 3.6 MMOL/L (3.5-5.1)
[2024-01-08 05:32] VITALS: BP 148/58; TEMP 98.1; O2SAT 98
[2024-01-08 06:25] LABS: INR 2.91; PROTHROMBIN TIME 29.4 SECONDS (12.5-14.5)
[2024-01-08 22:00] VITALS: BP 150/50
[2024-01-09 06:00] VITALS: BP 156/54; TEMP 97.8; O2SAT 98
[2024-01-09] MEDS ORDERED: SODIUM CHLORIDE 0.9% 1000ML IV PRN (06:00)
[2024-01-09] MEDS ORDERED: HEPARIN 1,000UNITS/ML 10ML VIAL (FOR RADIOLOGY & DIALYSIS ONLY) IV PRN (06:00)
[2024-01-09 08:43] LABS: HEMOGLOBIN 10.5 g/dl (12.0-15.5); MEAN CORPUSCULAR HEMOGLOBIN 31.3 pg (27.0-33.0); MEAN CORPUSCULAR HGB CONC 31.8 g/dl (32.0-36.5); MEAN CORPUSCULAR VOLUME 98.2 fl (80.0-96.0); PLATELET COUNT, AUTOMATED 178 10^3/uL (150-450); RED BLOOD COUNT 3.36 10^6/uL (4.00-5.40); WHITE BLOOD COUNT 5.6 10^3/uL (4.0-10.0)
[2024-01-09 09:02] LABS: INR 2.61
[2024-01-09 09:32] LABS: ALBUMIN 2.5 G/DL (3.2-5.2); CALCIUM LEVEL 8.3 MG/DL (8.3-10.6); CREATININE FOR GFR 2.65 MG/DL (0.55-1.30); GLOMERULAR FILTRATION RATE 18.5 (>39); PHOSPHORUS LEVEL 5.7 MG/DL (2.4-5.1); POTASSIUM SERUM 4.7 MMOL/L (3.5-5.1)
[2024-01-09] MEDS: (RENVELA) SEVELAMER **CARBONate** 800 MG TAB PO SCH (12:33)
[2024-01-10 06:00] VITALS: BP 150/54; TEMP 98; O2SAT 98
[2024-01-10 07:11] LABS: INR 2.45; PROTHROMBIN TIME 25.7 SECONDS (12.5-14.5)
[2024-01-10 14:55] VITALS: BP 139/70
[2024-01-10 19:59] VITALS: BP 164/54
[2024-01-10 22:52] VITALS: BP 124/50
[2024-01-11 05:32] VITALS: BP 160/56; TEMP 97.8; O2SAT 99
[2024-01-11] MEDS ORDERED: HEPARIN 1,000UNITS/ML 10ML VIAL (FOR RADIOLOGY & DIALYSIS ONLY) IV PRN (06:00)
[2024-01-11] MEDS ORDERED: SODIUM CHLORIDE 0.9% 1000ML IV PRN (06:00)
[2024-01-11] MEDS: DARBEPOETIN 40MCG/0.4ML *DIALYSIS* SYRINGE IV SCH (08:27)
[2024-01-11 20:39] VITALS: BP 144/52; TEMP 99; O2SAT 98
[2024-01-12 07:13] LABS: INR 2.78; PROTHROMBIN TIME 28.3 SECONDS (12.5-14.5)
[2024-01-12 19:54] VITALS: BP 140/42; TEMP 99; O2SAT 98
[2024-01-12] MEDS: lisinopriL 40MG TAB PO SCH (20:10)
[2024-01-13 05:47] VITALS: BP 138/56; TEMP 97.2; O2SAT 97
[2024-01-13 19:45] VITALS: BP 150/56; TEMP 98.2; O2SAT 96
[2024-01-14 05:33] VITALS: BP 150/42; TEMP 97.5; O2SAT 97
[2024-01-14] MEDS ORDERED: HEPARIN 1,000UNITS/ML 10ML VIAL (FOR RADIOLOGY & DIALYSIS ONLY) XX SCH (06:00)
[2024-01-14] MEDS ORDERED: SODIUM CHLORIDE 0.9% 1000ML IV PRN (06:00)
[2024-01-14] MEDS ORDERED: HEPARIN 1,000UNITS/ML 10ML VIAL (FOR RADIOLOGY & DIALYSIS ONLY) IV PRN (06:00)
[2024-01-14 06:22] LABS: BASO # 0.1 10^3/uL (0.0-0.2); BASO % 1.4 % (0.0-1.0); EOS # 0.3 10^3/uL (0.0-0.5); EOS % 6.4 % (0.0-3.0); HEMATOCRIT 35.4 % (36.0-47.0); HEMOGLOBIN 11.3 g/dl (12.0-15.5); LYMPH # 0.6 10^3/uL (1.5-5.0); LYMPH % 13.3 % (24.0-44.0); MEAN CORPUSCULAR HEMOGLOBIN 30.8 pg (27.0-33.0); MEAN CORPUSCULAR HGB CONC 31.9 g/dl (32.0-36.5); MEAN CORPUSCULAR VOLUME 96.5 fl (80.0-96.0); MONO # 0.5 10^3/uL (0.0-0.8); MONO % 11.9 % (2.0-8.0); NEUTROPHILS # 2.9 10^3/uL (1.5-8.5); NEUTROPHILS % 66.5 % (36.0-66.0); PLATELET COUNT, AUTOMATED 198 10^3/uL (150-450); RED BLOOD COUNT 3.67 10^6/uL (4.00-5.40); WHITE BLOOD COUNT 4.4 10^3/uL (4.0-10.0)
[2024-01-14 06:32] LABS: INR 2.99
[2024-01-14 06:48] LABS: ALBUMIN 2.6 G/DL (3.2-5.2); CALCIUM LEVEL 8.3 MG/DL (8.3-10.6); CREATININE FOR GFR 2.99 MG/DL (0.55-1.30); GLOMERULAR FILTRATION RATE 16.1 (>39); MAGNESIUM LEVEL 1.9 MG/DL (1.8-2.4); PHOSPHORUS LEVEL 6.4 MG/DL (2.4-5.1); POTASSIUM SERUM 4.9 MMOL/L (3.5-5.1)
[2024-01-14 20:06] VITALS: BP 166/54
[2024-01-14 23:20] VITALS: BP 140/62
[2024-01-15 05:25] VITALS: BP 160/54; TEMP 97.6; O2SAT 97
[2024-01-15 08:23] LABS: INR 3.16; PROTHROMBIN TIME 31.3 SECONDS (12.5-14.5)
[2024-01-15 22:00] VITALS: BP 178/58; TEMP 97.1; O2SAT 98
[2024-01-16 06:00] VITALS: BP 148/50; TEMP 97.1; O2SAT 99
[2024-01-16] MEDS ORDERED: HEPARIN 1,000UNITS/ML 10ML VIAL (FOR RADIOLOGY & DIALYSIS ONLY) IV PRN (06:00)
[2024-01-16] MEDS ORDERED: SODIUM CHLORIDE 0.9% 1000ML IV PRN (06:00)
[2024-01-16 06:29] LABS: INR 3.79
[2024-01-16] MEDS: ACETAMINOPHEN TAB 650MG DOSE (2X325MG) PO ONE (11:13)
[2024-01-16] MEDS ORDERED: ANALGESIC BALM CRM 3OZ TOP PRN (16:35)
[2024-01-16] MEDS: LEVEMIR (INSULIN DETEMIR) 1 UNITS/0.01ML SC SCH (19:45)
[2024-01-16] MEDS ORDERED: DICLOFENAC EPOLAMINE 1.3% PATCH TOP PRN (21:00)
[2024-01-17 05:56] VITALS: BP 150/48; TEMP 97.6; O2SAT 97
[2024-01-18 05:48] VITALS: BP 164/70; TEMP 97.9; O2SAT 95
[2024-01-18] MEDS ORDERED: SODIUM CHLORIDE 0.9% 1000ML IV PRN (06:00)
[2024-01-18] MEDS ORDERED: HEPARIN 1,000UNITS/ML 10ML VIAL (FOR RADIOLOGY & DIALYSIS ONLY) IV PRN (06:00)
[2024-01-18 07:08] LABS: INR 2.03; PROTHROMBIN TIME 22.2 SECONDS (12.5-14.5)
[2024-01-18] MEDS: WARFARIN SOD 2.5MG TAB PO ONE (18:32)
[2024-01-18 22:00] VITALS: BP 162/50; TEMP 97.3; O2SAT 98
[2024-01-18 22:08] VITALS: BP 148/48
[2024-01-19 05:58] VITALS: BP 170/58; TEMP 96.9; O2SAT 97
[2024-01-19 07:12] LABS: INR 2.46; PROTHROMBIN TIME 25.8 SECONDS (12.5-14.5)
[2024-01-19 21:52] VITALS: BP 152/50
[2024-01-20] VITALS (9 sets, daily range): BP systolic 158–240; BP diastolic 40–76; TEMP 97.8–98.6; O2SAT 96–97
[2024-01-20 07:18] LABS: INR 3.05; PROTHROMBIN TIME 30.4 SECONDS (12.5-14.5)
[2024-01-20] MEDS: NIFEdipine 30MG XL TAB PO SCH (12:14)
[2024-01-20 13:20] LABS: HEMATOCRIT 32.8 % (36.0-47.0); HEMOGLOBIN 10.6 g/dl (12.0-15.5); MEAN CORPUSCULAR HEMOGLOBIN 31.1 pg (27.0-33.0); MEAN CORPUSCULAR HGB CONC 32.3 g/dl (32.0-36.5); MEAN CORPUSCULAR VOLUME 96.2 fl (80.0-96.0); PLATELET COUNT, AUTOMATED 161 10^3/uL (150-450); RED BLOOD COUNT 3.41 10^6/uL (4.00-5.40)
[2024-01-20 13:46] LABS: ALBUMIN 2.7 G/DL (3.2-5.2); BILIRUBIN,TOTAL 0.3 MG/DL (0.3-1.2); CREATININE FOR GFR 2.51 MG/DL (0.55-1.30); GLOMERULAR FILTRATION RATE 19.7 (>39); POTASSIUM SERUM 4.5 MMOL/L (3.5-5.1); TOTAL PROTEIN 5.6 G/DL (5.7-8.2)
[2024-01-20] MEDS: NITROGLYCERIN 2% OINT 1 GM *U/D* PKT TOP SCH (15:11)
[2024-01-21] MEDS ORDERED: HEPARIN 1,000UNITS/ML 10ML VIAL (FOR RADIOLOGY & DIALYSIS ONLY) IV PRN (05:55)
[2024-01-21] MEDS ORDERED: HEPARIN 1,000UNITS/ML 10ML VIAL (FOR RADIOLOGY & DIALYSIS ONLY) XX SCH (05:55)
[2024-01-21] MEDS ORDERED: SODIUM CHLORIDE 0.9% 1000ML IV PRN (05:55)
[2024-01-21 06:03] VITALS: BP 150/60; TEMP 97.3; O2SAT 97
[2024-01-21 07:38] LABS: INR 3.34; PROTHROMBIN TIME 32.6 SECONDS (12.5-14.5)
[2024-01-21 07:45] VITALS: BP 165/42
[2024-01-21 12:01] VITALS: BP 165/48
[2024-01-21 19:25] VITALS: BP 180/64
[2024-01-21] MEDS: LIDOCAINE 5% (LIDODERM) PATCH TD PRN (21:50)
[2024-01-22 00:50] VITALS: BP 128/42
[2024-01-22 04:10] VITALS: BP 144/58; TEMP 98.2; O2SAT 97
[2024-01-22 22:00] VITALS: BP 142/48
[2024-01-23 02:00] VITALS: BP 118/40
[2024-01-23 05:31] VITALS: BP 138/48; TEMP 97.1; O2SAT 98
[2024-01-23] MEDS ORDERED: HEPARIN 1,000UNITS/ML 10ML VIAL (FOR RADIOLOGY & DIALYSIS ONLY) XX SCH (06:00)
[2024-01-23] MEDS ORDERED: SODIUM CHLORIDE 0.9% 1000ML IV PRN (06:00)
[2024-01-23] MEDS ORDERED: HEPARIN 1,000UNITS/ML 10ML VIAL (FOR RADIOLOGY & DIALYSIS ONLY) IV PRN (06:00)
[2024-01-23 20:35] VITALS: BP 142/30
[2024-01-24 02:00] VITALS: BP 135/80
[2024-01-24 06:15] VITALS: BP 132/50; TEMP 98.1; O2SAT 100
[2024-01-24 08:11] LABS: INR 5.07
[2024-01-24 19:43] VITALS: BP 200/64
[2024-01-24 21:00] VITALS: BP 180/58
[2024-01-24 21:54] VITALS: BP 164/58
[2024-01-25 05:30] VITALS: BP 128/40; TEMP 97.6; O2SAT 99
[2024-01-25] MEDS ORDERED: HEPARIN 1,000UNITS/ML 10ML VIAL (FOR RADIOLOGY & DIALYSIS ONLY) XX SCH (06:00)
[2024-01-25] MEDS ORDERED: HEPARIN 1,000UNITS/ML 10ML VIAL (FOR RADIOLOGY & DIALYSIS ONLY) IV PRN (06:00)
[2024-01-25] MEDS ORDERED: SODIUM CHLORIDE 0.9% 1000ML IV PRN (06:00)
[2024-01-25 06:40] LABS: INR 3.11; PROTHROMBIN TIME 30.9 SECONDS (12.5-14.5)
[2024-01-25] MEDS: WARFARIN SOD 4MG TAB PO SCH (17:17)
[2024-01-25 22:00] VITALS: BP 180/50; TEMP 98.1; O2SAT 98
[2024-01-26 05:19] VITALS: BP 168/50; TEMP 98.1; O2SAT 97
[2024-01-26 07:35] LABS: INR 2.18; PROTHROMBIN TIME 23.5 SECONDS (12.5-14.5)
[2024-01-27 06:00] VITALS: BP 138/56; TEMP 97.6; O2SAT 98
[2024-01-27 08:37] LABS: INR 2.23; PROTHROMBIN TIME 23.9 SECONDS (12.5-14.5)
[2024-01-27 14:00] VITALS: BP 140/56; TEMP 98.6; O2SAT 97
[2024-01-28 05:43] VITALS: BP 108/52; TEMP 97.9; O2SAT 97
[2024-01-28] MEDS ORDERED: SODIUM CHLORIDE 0.9% 1000ML IV PRN (05:45)
[2024-01-28] MEDS ORDERED: HEPARIN 1,000UNITS/ML 10ML VIAL (FOR RADIOLOGY & DIALYSIS ONLY) IV PRN (05:45)
[2024-01-28] MEDS ORDERED: HEPARIN 1,000UNITS/ML 10ML VIAL (FOR RADIOLOGY & DIALYSIS ONLY) XX SCH (05:45)
[2024-01-28 06:52] LABS: HEMATOCRIT 31.4 % (36.0-47.0); HEMOGLOBIN 10.2 g/dl (12.0-15.5); MEAN CORPUSCULAR HEMOGLOBIN 30.8 pg (27.0-33.0); MEAN CORPUSCULAR HGB CONC 32.5 g/dl (32.0-36.5); MEAN CORPUSCULAR VOLUME 94.9 fl (80.0-96.0); PLATELET COUNT, AUTOMATED 172 10^3/uL (150-450); RED BLOOD COUNT 3.31 10^6/uL (4.00-5.40); WHITE BLOOD COUNT 4.5 10^3/uL (4.0-10.0)
[2024-01-28 07:31] LABS: ALBUMIN 2.7 G/DL (3.2-5.2); CALCIUM LEVEL 8.1 MG/DL (8.3-10.6); CREATININE FOR GFR 2.91 MG/DL (0.55-1.30); GLOMERULAR FILTRATION RATE 16.6 (>39); PHOSPHORUS LEVEL 5.3 MG/DL (2.4-5.1); POTASSIUM SERUM 4.3 MMOL/L (3.5-5.1)
[2024-01-28 13:42] LABS: INR 2.94; PROTHROMBIN TIME 29.6 SECONDS (12.5-14.5)
[2024-01-29 06:00] VITALS: BP 170/82; TEMP 98.3; O2SAT 97
[2024-01-29 07:00] LABS: INR 2.44; PROTHROMBIN TIME 25.6 SECONDS (12.5-14.5)
[2024-01-29] MEDS: WARFARIN SOD 1MG TAB PO ONE (18:23)
[2024-01-29 22:00] VITALS: BP 172/52; TEMP 97.7; O2SAT 97
[2024-01-30 05:59] VITALS: BP 152/48; TEMP 98.1; O2SAT 96
[2024-01-30] MEDS ORDERED: HEPARIN 1,000UNITS/ML 10ML VIAL (FOR RADIOLOGY & DIALYSIS ONLY) XX SCH (06:50)
[2024-01-30] MEDS ORDERED: SODIUM CHLORIDE 0.9% 1000ML IV PRN (06:50)
[2024-01-30] MEDS ORDERED: HEPARIN 1,000UNITS/ML 10ML VIAL (FOR RADIOLOGY & DIALYSIS ONLY) IV PRN (06:50)
[2024-01-30 07:30] LABS: INR 2.66; PROTHROMBIN TIME 27.4 SECONDS (12.5-14.5)
[2024-01-30] MEDS: WARFARIN SOD 5MG TAB PO SCH (18:10)
[2024-01-30 20:09] VITALS: BP 198/50; TEMP 98.8; O2SAT 97
[2024-01-31 06:17] VITALS: BP 130/40; TEMP 98.7; O2SAT 98
[2024-01-31 09:41] VITALS: BP 192/70
[2024-01-31 13:23] LABS: INR 2.67; PROTHROMBIN TIME 27.5 SECONDS (12.5-14.5)
[2024-01-31 14:44] VITALS: BP 152/60
[2024-01-31 19:39] VITALS: BP 142/48
[2024-02-01 05:39] VITALS: BP 150/44; TEMP 98.1; O2SAT 99
[2024-02-01] MEDS ORDERED: SODIUM CHLORIDE 0.9% 1000ML IV PRN (06:30)
[2024-02-01] MEDS ORDERED: HEPARIN 1,000UNITS/ML 10ML VIAL (FOR RADIOLOGY & DIALYSIS ONLY) IV PRN (06:30)
[2024-02-01] MEDS ORDERED: HEPARIN 1,000UNITS/ML 10ML VIAL (FOR RADIOLOGY & DIALYSIS ONLY) XX SCH (06:30)
[2024-02-01 07:24] LABS: INR 2.78; PROTHROMBIN TIME 28.3 SECONDS (12.5-14.5)
[2024-02-01] MEDS: DARBEPOETIN 40MCG/0.4ML *DIALYSIS* SYRINGE IV SCH (08:56)
[2024-02-01 20:30] VITALS: BP 210/100
[2024-02-01 22:00] VITALS: BP 210/62; TEMP 97.3; O2SAT 97
[2024-02-01 22:40] VITALS: BP 180/86
[2024-02-02 03:10] VITALS: BP 142/54
[2024-02-02 05:36] VITALS: BP 150/48; TEMP 97.4; O2SAT 96
[2024-02-02 07:34] LABS: INR 3.03; PROTHROMBIN TIME 30.3 SECONDS (12.5-14.5)
[2024-02-02 19:33] VITALS: BP 130/62
[2024-02-03 03:09] VITALS: BP 116/48
[2024-02-03 05:46] VITALS: BP 138/40; TEMP 97.1; O2SAT 97
[2024-02-03 07:45] LABS: INR 3.05; PROTHROMBIN TIME 30.4 SECONDS (12.5-14.5)
[2024-02-03 20:40] VITALS: BP 182/58
[2024-02-04 00:31] VITALS: BP 138/50
[2024-02-04 05:30] VITALS: BP 170/44; TEMP 98; O2SAT 96
[2024-02-04] MEDS ORDERED: HEPARIN 1,000UNITS/ML 10ML VIAL (FOR RADIOLOGY & DIALYSIS ONLY) IV PRN (06:00)
[2024-02-04] MEDS ORDERED: SODIUM CHLORIDE 0.9% 1000ML IV PRN (06:00)
[2024-02-04 07:22] LABS: INR 3.93
[2024-02-04 11:36] LABS: CALCIUM LEVEL 8.5 MG/DL (8.3-10.6); CREATININE FOR GFR 3.05 MG/DL (0.55-1.30); GLOMERULAR FILTRATION RATE 15.8 (>39); POTASSIUM SERUM 4.7 MMOL/L (3.5-5.1)
[2024-02-04 14:20] VITALS: BP 162/60
[2024-02-05 06:00] VITALS: BP 120/60; TEMP 97.1; O2SAT 100
[2024-02-05 06:09] LABS: INR 2.77; PROTHROMBIN TIME 28.2 SECONDS (12.5-14.5)
[2024-02-06 06:00] VITALS: BP 142/50; TEMP 97.4; O2SAT 98
[2024-02-06] MEDS ORDERED: HEPARIN 1,000UNITS/ML 10ML VIAL (FOR RADIOLOGY & DIALYSIS ONLY) IV PRN (06:00)
[2024-02-06 07:15] LABS: BASO # 0.1 10^3/uL (0.0-0.2); BASO % 1.2 % (0.0-1.0); EOS # 0.2 10^3/uL (0.0-0.5); EOS % 3.9 % (0.0-3.0); HEMATOCRIT 30.4 % (36.0-47.0); LYMPH # 0.7 10^3/uL (1.5-5.0); LYMPH % 15.1 % (24.0-44.0); MEAN CORPUSCULAR HEMOGLOBIN 31.8 pg (27.0-33.0); MEAN CORPUSCULAR HGB CONC 32.9 g/dl (32.0-36.5); MEAN CORPUSCULAR VOLUME 96.8 fl (80.0-96.0); MONO # 0.6 10^3/uL (0.0-0.8); NEUTROPHILS # 3.2 10^3/uL (1.5-8.5); NEUTROPHILS % 66.4 % (36.0-66.0); PLATELET COUNT, AUTOMATED 198 10^3/uL (150-450); RED BLOOD COUNT 3.14 10^6/uL (4.00-5.40); WHITE BLOOD COUNT 4.8 10^3/uL (4.0-10.0)
[2024-02-06 07:37] LABS: INR 2.36; PROTHROMBIN TIME 24.9 SECONDS (12.5-14.5)
[2024-02-06 07:42] LABS: ALBUMIN 2.7 G/DL (3.2-5.2); CALCIUM LEVEL 8.4 MG/DL (8.3-10.6); CREATININE FOR GFR 3.08 MG/DL (0.55-1.30); GLOMERULAR FILTRATION RATE 15.6 (>39); PHOSPHORUS LEVEL 3.7 MG/DL (2.4-5.1); POTASSIUM SERUM 3.8 MMOL/L (3.5-5.1)
[2024-02-06] MEDS ORDERED: SODIUM CHLORIDE 0.9% 1000ML IV PRN (12:10)
[2024-02-07 05:50] VITALS: BP 161/72
[2024-02-07 06:09] VITALS: TEMP 97.3; O2SAT 97
[2024-02-07 14:24] LABS: HEMATOCRIT 39.7 % (36.0-47.0); MEAN CORPUSCULAR HEMOGLOBIN 31.7 pg (27.0-33.0); MEAN CORPUSCULAR HGB CONC 32.7 g/dl (32.0-36.5); MEAN CORPUSCULAR VOLUME 96.8 fl (80.0-96.0); PLATELET COUNT, AUTOMATED 245 10^3/uL (150-450)
[2024-02-07 14:36] LABS: INR 2.52; PROTHROMBIN TIME 26.3 SECONDS (12.5-14.5)
[2024-02-07 20:53] VITALS: BP 143/63
[2024-02-07 21:26] VITALS: TEMP 98.5; O2SAT 96
[2024-02-08] MEDS: **hydrALAZINE** 50 MG TAB PO STA (03:13)
[2024-02-08 03:52] VITALS: BP 162/58; TEMP 98; O2SAT 97
[2024-02-08 05:57] VITALS: BP 167/74
[2024-02-08] MEDS ORDERED: SODIUM CHLORIDE 0.9% 1000ML IV PRN (06:00)
[2024-02-08] MEDS ORDERED: HEPARIN 1,000UNITS/ML 10ML VIAL (FOR RADIOLOGY & DIALYSIS ONLY) IV PRN (06:00)
[2024-02-08 08:28] LABS: INR 3.19; PROTHROMBIN TIME 31.5 SECONDS (12.5-14.5)
[2024-02-08 14:39] VITALS: BP 156/60
[2024-02-09 03:10] VITALS: BP 126/62
[2024-02-09 08:44] VITALS: BP 160/58
[2024-02-09 15:02] VITALS: BP 152/56
[2024-02-10 06:01] VITALS: BP 170/62; TEMP 97.8; O2SAT 96
[2024-02-10 19:59] VITALS: BP 152/50
[2024-02-11 05:34] VITALS: BP 152/62; TEMP 98.2; O2SAT 97
[2024-02-11] MEDS ORDERED: SODIUM CHLORIDE 0.9% 1000ML IV PRN (06:55)
[2024-02-11] MEDS ORDERED: HEPARIN 1,000UNITS/ML 10ML VIAL (FOR RADIOLOGY & DIALYSIS ONLY) XX SCH (06:55)
[2024-02-11] MEDS ORDERED: HEPARIN 1,000UNITS/ML 10ML VIAL (FOR RADIOLOGY & DIALYSIS ONLY) IV PRN (06:55)
[2024-02-11 15:18] LABS: INR 4.19; PROTHROMBIN TIME 38.8 SECONDS (12.5-14.5)
[2024-02-11 15:20] VITALS: BP 122/44
[2024-02-11 20:21] VITALS: BP 140/32; TEMP 97.7; O2SAT 96
[2024-02-12 06:35] VITALS: BP 122/42; TEMP 97.6; O2SAT 97
[2024-02-12 07:47] LABS: INR 3.69; PROTHROMBIN TIME 35.2 SECONDS (12.5-14.5)
[2024-02-12 20:59] VITALS: BP 148/69
[2024-02-13 03:43] VITALS: BP 131/62
[2024-02-13 05:45] VITALS: BP 161/73; TEMP 98.1; O2SAT 99
[2024-02-13] MEDS ORDERED: HEPARIN 1,000UNITS/ML 10ML VIAL (FOR RADIOLOGY & DIALYSIS ONLY) IV PRN (06:25)
[2024-02-13] MEDS ORDERED: HEPARIN 1,000UNITS/ML 10ML VIAL (FOR RADIOLOGY & DIALYSIS ONLY) XX SCH (06:25)
[2024-02-13] MEDS ORDERED: SODIUM CHLORIDE 0.9% 1000ML IV PRN (06:25)
[2024-02-13 07:37] LABS: HEMATOCRIT 33.6 % (36.0-47.0); HEMOGLOBIN 10.9 g/dl (12.0-15.5); MEAN CORPUSCULAR HEMOGLOBIN 32.2 pg (27.0-33.0); MEAN CORPUSCULAR HGB CONC 32.4 g/dl (32.0-36.5); MEAN CORPUSCULAR VOLUME 99.1 fl (80.0-96.0); PLATELET COUNT, AUTOMATED 181 10^3/uL (150-450); RED BLOOD COUNT 3.39 10^6/uL (4.00-5.40); WHITE BLOOD COUNT 4.6 10^3/uL (4.0-10.0)
[2024-02-13 07:58] LABS: CALCIUM LEVEL 8.8 MG/DL (8.3-10.6); CREATININE FOR GFR 2.96 MG/DL (0.55-1.30); GLOMERULAR FILTRATION RATE 16.3 (>39); PHOSPHORUS LEVEL 4.6 MG/DL (2.4-5.1); POTASSIUM SERUM 4.4 MMOL/L (3.5-5.1)
[2024-02-13 08:11] LABS: INR 2.04; PROTHROMBIN TIME 22.3 SECONDS (12.5-14.5)
[2024-02-13 14:00] VITALS: BP 150/68; TEMP 98.7; O2SAT 98
[2024-02-14 05:45] VITALS: BP 150/45; TEMP 98.1; O2SAT 99
[2024-02-14 07:04] LABS: INR 1.88
[2024-02-15] MEDS ORDERED: HEPARIN 1,000UNITS/ML 10ML VIAL (FOR RADIOLOGY & DIALYSIS ONLY) XX SCH (06:25)
[2024-02-15] MEDS ORDERED: SODIUM CHLORIDE 0.9% 1000ML IV PRN (06:25)
[2024-02-15] MEDS ORDERED: HEPARIN 1,000UNITS/ML 10ML VIAL (FOR RADIOLOGY & DIALYSIS ONLY) IV PRN (06:25)
[2024-02-15 06:52] LABS: INR 1.79; PROTHROMBIN TIME 20.1 SECONDS (12.5-14.5)
[2024-02-15 22:00] VITALS: BP 128/50
[2024-02-16 05:01] VITALS: BP 150/50; TEMP 97.4; O2SAT 98
[2024-02-16 06:53] LABS: INR 2.07; PROTHROMBIN TIME 22.6 SECONDS (12.5-14.5)
[2024-02-16 20:56] VITALS: BP 149/66
[2024-02-17 02:34] VITALS: BP 155/72
[2024-02-17 06:29] VITALS: BP 123/58; TEMP 97.5; O2SAT 97
[2024-02-17 07:16] LABS: INR 2.5; PROTHROMBIN TIME 26.1 SECONDS (12.5-14.5)
[2024-02-17] MEDS ORDERED: SODIUM CHLORIDE 0.9% 1000ML IV PRN (11:30)
[2024-02-17 20:06] VITALS: BP 184/44
[2024-02-18 02:27] VITALS: BP 127/57
[2024-02-18 05:30] VITALS: BP 123/54
[2024-02-18 05:59] VITALS: TEMP 97.8; O2SAT 97
[2024-02-18] MEDS ORDERED: HEPARIN 1,000UNITS/ML 10ML VIAL (FOR RADIOLOGY & DIALYSIS ONLY) IV PRN (06:00)
[2024-02-18 06:39] LABS: INR 2.71; PROTHROMBIN TIME 27.8 SECONDS (12.5-14.5)
[2024-02-18] MEDS: WARFARIN SOD 3MG TAB PO SCH (17:40)
[2024-02-18 19:44] VITALS: BP 184/60
[2024-02-19 02:55] VITALS: BP 115/52
[2024-02-19 05:48] VITALS: BP 118/40; TEMP 97.9; O2SAT 97
[2024-02-19 07:50] LABS: INR 2.37
[2024-02-19 13:24] VITALS: BP 142/68
[2024-02-19] MEDS: WARFARIN SOD 5MG TAB PO SCH (17:42)
[2024-02-19] MEDS ORDERED: JANT5TAB PO (19:53)
[2024-02-19] MEDS ORDERED: HYDR50TA46 PO (19:53)
[2024-02-19] MEDS ORDERED: JANT3TAB PO (19:53)
[2024-02-19] MEDS ORDERED: RENV2TAB PO (19:53)
[2024-02-19] MEDS ORDERED: LISI40TA4 PO (19:53)
[2024-02-19] MEDS ORDERED: NIFE1TAB52 PO (19:53)
[2024-02-20 05:51] VITALS: BP 130/40; TEMP 98; O2SAT 98
[2024-02-20] MEDS ORDERED: SODIUM CHLORIDE 0.9% 1000ML IV PRN (06:00)
[2024-02-20] MEDS ORDERED: HEPARIN 1,000UNITS/ML 10ML VIAL (FOR RADIOLOGY & DIALYSIS ONLY) IV PRN (06:00)
[2024-02-20 07:49] LABS: BASO # 0.1 10^3/uL (0.0-0.2); BASO % 1.4 % (0.0-1.0); EOS # 0.1 10^3/uL (0.0-0.5); EOS % 2.8 % (0.0-3.0); HEMATOCRIT 32.9 % (36.0-47.0); HEMOGLOBIN 10.6 g/dl (12.0-15.5); LYMPH # 0.8 10^3/uL (1.5-5.0); LYMPH % 16.1 % (24.0-44.0); MEAN CORPUSCULAR HEMOGLOBIN 31.5 pg (27.0-33.0); MEAN CORPUSCULAR HGB CONC 32.2 g/dl (32.0-36.5); MEAN CORPUSCULAR VOLUME 97.6 fl (80.0-96.0); MONO # 0.6 10^3/uL (0.0-0.8); NEUTROPHILS # 3.4 10^3/uL (1.5-8.5); NEUTROPHILS % 67.5 % (36.0-66.0); PLATELET COUNT, AUTOMATED 212 10^3/uL (150-450); RED BLOOD COUNT 3.37 10^6/uL (4.00-5.40); WHITE BLOOD COUNT 5.1 10^3/uL (4.0-10.0)
[2024-02-20 08:11] LABS: ALBUMIN 2.9 G/DL (3.2-5.2); CALCIUM LEVEL 8.5 MG/DL (8.3-10.6); CREATININE FOR GFR 3.75 MG/DL (0.55-1.30); GLOMERULAR FILTRATION RATE 12.4 (>39); POTASSIUM SERUM 4.4 MMOL/L (3.5-5.1)
[2024-02-20 14:02] VITALS: BP 154/52
[2024-02-25] MEDS ORDERED: WARFARIN SOD 3MG TAB PO SCH (17:00)
== END 2024-02-20 15:35 | disposition home health service (06) | DRG 304 ==
LOC: EDBD 08:05 → M ED 08:05 → M ED INP 12:43 → M PCU 17:31 → M MSPAV 11-26 18:45 → M ICU 11-29 06:15 → M PCU 11-29 20:50 → M MS5PR 11-30 13:06
PROVIDERS: ADMIT Student in an Organized Health Care Education/Training Program; ATTEND Internal Medicine
PROC: 5A1D70Z Performance of Urinary Filtration, Intermittent, Less than 6 Hours Per Day (ICD-10-PCS; principal; 2023-11-26)
DX: I16.0 Hypertensive urgency (principal); N18.6 End stage renal disease; I63.40 Cerebral infarction due to embolism of unspecified cerebral artery; E87.20 Acidosis, unspecified; D63.1 Anemia in chronic kidney disease; E11.22 Type 2 diabetes mellitus with diabetic chronic kidney disease; I12.0 Hypertensive chronic kidney disease with stage 5 chronic kidney disease or end stage renal disease; E78.5 Hyperlipidemia, unspecified; M10.9 Gout, unspecified; R19.7 Diarrhea, unspecified; I25.10 Atherosclerotic heart disease of native coronary artery without angina pectoris; K80.20 Calculus of gallbladder without cholecystitis without obstruction; M54.9 Dorsalgia, unspecified; G89.29 Other chronic pain; R91.1 Solitary pulmonary nodule; R53.1 Weakness; G43.909 Migraine, unspecified, not intractable, without status migrainosus; K21.9 Gastro-esophageal reflux disease without esophagitis; I48.91 Unspecified atrial fibrillation; Z85.3 Personal history of malignant neoplasm of breast; Z98.49 Cataract extraction status, unspecified eye; Z90.13 Acquired absence of bilateral breasts and nipples; Z95.2 Presence of prosthetic heart valve; Z79.01 Long term (current) use of anticoagulants; Z79.4 Long term (current) use of insulin; Z79.899 Other long term (current) drug therapy; Z88.8 Allergy status to other drugs, medicaments and biological substances; Z20.822 Contact with and (suspected) exposure to COVID-19; Z95.0 Presence of cardiac pacemaker; E53.8 Deficiency of other specified B group vitamins

== ENCOUNTER → 2023-11-30 | Outpatient (CLI) | payer MEDICARE ==
[~2023-11-30] MED LIST changes: -HYDR-161 PO; +HYDR-3910 PO; +HYDR10TAB PO; -HYDR25TA87 PO
== END ==
LOC: M SOG 08:00
PROVIDERS: ATTEND Orthopaedic Surgery
DX: Z53.9 Procedure and treatment not carried out, unspecified reason (principal)

== ENCOUNTER 2024-06-11 10:32 | Emergency (ER) | payer MEDICARE ==
[~2024-06-11 10:32] MED LIST changes: +HYDR-161 PO; -HYDR-3910 PO; -HYDR10TAB PO; +HYDR25TA87 PO; +HYDR50TA46 PO; +JANT3TAB PO; +JANT5TAB PO; +LISI40TA4 PO; +NIFE1TAB52 PO; +PIPE4.5F IV; +RENV2TAB PO; -ZOSY1SOL6 IV
[2024-06-11 10:51] VITALS: TEMP 97.8
[2024-06-11 12:23] LABS: BASO # 0.1 10^3/uL (0.0-0.2); EOS # 0.2 10^3/uL (0.0-0.5); EOS % 3.5 % (0.0-3.0); HEMATOCRIT 33.1 % (36.0-47.0); LYMPH # 0.6 10^3/uL (1.5-5.0); LYMPH % 10.1 % (24.0-44.0); MEAN CORPUSCULAR HEMOGLOBIN 31.3 pg (27.0-33.0); MEAN CORPUSCULAR HGB CONC 33.2 g/dl (32.0-36.5); MEAN CORPUSCULAR VOLUME 94.3 fl (80.0-96.0); MONO # 0.6 10^3/uL (0.0-0.8); MONO % 11.1 % (2.0-8.0); NEUTROPHILS # 4.3 10^3/uL (1.5-8.5); NEUTROPHILS % 74.1 % (36.0-66.0); PLATELET COUNT, AUTOMATED 188 10^3/uL (150-450); RED BLOOD COUNT 3.51 10^6/uL (4.00-5.40); WHITE BLOOD COUNT 5.8 10^3/uL (4.0-10.0)
[2024-06-11 12:36] LABS: INR 2.34; PROTHROMBIN TIME 24.8 SECONDS (12.5-14.5)
[2024-06-11 12:52] LABS: CK-MB VALUE MASS 2.5 NG/ML (<3.6)
[2024-06-11 12:54] LABS: ALBUMIN 2.9 G/DL (3.2-5.2); BILIRUBIN,TOTAL 0.3 MG/DL (0.3-1.2); CALCIUM LEVEL 8.4 MG/DL (8.3-10.6); CREATININE FOR GFR 1.89 MG/DL (0.55-1.30); GLOMERULAR FILTRATION RATE 27.4 (>39); TOTAL PROTEIN 6.2 G/DL (5.7-8.2)
[2024-06-11 13:02] LABS: MB/CK RELATIVE INDEX 3.96 (< OR =4)
[2024-06-11] MEDS: **hydrALAZINE** 50 MG TAB PO ONE (13:12)
[2024-06-11 13:16] LABS: MAGNESIUM LEVEL 2.4 MG/DL (1.8-2.4)
[2024-06-11 14:31] VITALS: BP 228/93
[2024-06-11] MEDS: hydrALAZINE 20MG/ML 1ML VIAL IV ONE (14:31)
[2024-06-11 15:26] LABS: CK-MB VALUE MASS 3.3 NG/ML (<3.6)
[2024-06-11 15:27] LABS: MB/CK RELATIVE INDEX 7.17 (< OR =4)
[2024-06-11] MEDS ORDERED: hydrALAZINE 20MG/ML 1ML VIAL IV ONE (15:50)
[2024-06-11 20:00] VITALS: BP 150/62
[2024-06-11 20:15] VITALS: O2SAT 98
== END 2024-06-11 20:44 | disposition home or self-care (01) ==
LOC: M ED 10:32 → EDBD 10:32 → M ED 20:44
DX: I10 Essential (primary) hypertension (principal); R19.7 Diarrhea, unspecified; I45.10 Unspecified right bundle-branch block; E11.9 Type 2 diabetes mellitus without complications; E78.5 Hyperlipidemia, unspecified; Z88.8 Allergy status to other drugs, medicaments and biological substances; Z79.1 Long term (current) use of non-steroidal anti-inflammatories (NSAID); Z79.4 Long term (current) use of insulin; Z79.899 Other long term (current) drug therapy
CPT/HCPCS: 36415; 80053; 82550; 82553; 83605; 83735; 84484; 85025; 85610; 87507; 93005; 96374; 99285; J0360

== ENCOUNTER 2024-11-21 09:38 | Emergency (ER) | payer MEDICARE ==
[2024-11-21] MEDS ORDERED: LETR2.5T2 PO (10:32)
[2024-11-21] MEDS ORDERED: AMLO25TA PO (10:32)
[2024-11-21] MEDS ORDERED: FOLI1TAB11 PO (10:32)
[2024-11-21] MEDS ORDERED: LOPE2TAB12 PO (10:32)
[2024-11-21] MEDS ORDERED: NOVOINJ3 SC (10:39)
[2024-11-21] MEDS ORDERED: HOME MED LIST COMPLETE! XX SCH (10:40)
[2024-11-21 10:54] LABS: BASO % 1.2 % (0.0-1.0); EOS % 1.2 % (0.0-3.0); HEMATOCRIT 36.3 % (36.0-47.0); HEMOGLOBIN 11.7 g/dl (12.0-15.5); LYMPH # 0.7 10^3/uL (1.5-5.0); LYMPH % 19.5 % (24.0-44.0); MEAN CORPUSCULAR HEMOGLOBIN 31.3 pg (27.0-33.0); MEAN CORPUSCULAR HGB CONC 32.2 g/dl (32.0-36.5); MEAN CORPUSCULAR VOLUME 97.1 fl (80.0-96.0); MONO # 0.6 10^3/uL (0.0-0.8); MONO % 17.7 % (2.0-8.0); NEUTROPHILS # 2.1 10^3/uL (1.5-8.5); NEUTROPHILS % 59.8 % (36.0-66.0); PLATELET COUNT, AUTOMATED 163 10^3/uL (150-450); RED BLOOD COUNT 3.74 10^6/uL (4.00-5.40); WHITE BLOOD COUNT 3.4 10^3/uL (4.0-10.0)
[2024-11-21 11:04] LABS: ERYTHROCYTE SEDIMENTATION RATE 23 mm/hr (0-30)
[2024-11-21 11:10] LABS: INR 1.89; PROTHROMBIN TIME 21.9 SECONDS (12.5-14.5)
[2024-11-21 11:34] LABS: PARTIAL THROMBOPLASTIN TIME 163.5 SECONDS (24.8-34.2)
[2024-11-21 11:42] LABS: LIPASE 35 U/L (12-53)
[2024-11-21 11:43] LABS: AMYLASE 108 U/L (30-118); C REACTIVE PROTEIN QUANTITATIV 2.22 MG/DL (<1.0)
[2024-11-21 11:44] LABS: ALBUMIN 3.1 G/DL (3.2-5.2); ALKALINE PHOSPHATASE 127 U/L (35-104); ALT/SGPT 14 U/L (7.0-40); AST/SGOT 38 U/L (<34); BILIRUBIN,DIRECT < 0.1 MG/DL (<0.4); BILIRUBIN,TOTAL 0.2 MG/DL (0.3-1.2); BLOOD UREA NITROGEN 18 MG/DL (9-23); CALCIUM LEVEL 8.6 MG/DL (8.3-10.6); CARBON DIOXIDE LEVEL 29 MMOL/L (20-31); CHLORIDE LEVEL 98 MMOL/L (98-107); CREATININE FOR GFR 2.63 MG/DL (0.55-1.30); GLOMERULAR FILTRATION RATE 18.7 (>39); GLUCOSE, FASTING 172 MG/DL (74-106); POTASSIUM SERUM 4.2 MMOL/L (3.5-5.1); SODIUM LEVEL 136 MMOL/L (136-145); TOTAL PROTEIN 6.8 G/DL (5.7-8.2)
[2024-11-21 11:52] LABS: PROCALCITONIN 0.82 ng/ml
[2024-11-21] MEDS ORDERED: ACETAMINOPHEN 325 MG TAB PO ONE (12:45)
[2024-11-21] MEDS: ACETAMINOPHEN 325 MG TAB PO ONE (13:02)
[2024-11-21 16:30] VITALS: BP 116/56
[2024-11-21 16:45] VITALS: TEMP 98.4; O2SAT 99
== END 2024-11-21 17:02 | disposition home or self-care (01) ==
LOC: M ED 09:38 → EDBD 09:38 → M ED 17:02
DX: U07.1 COVID-19 (principal); R53.1 Weakness; L89.152 Pressure ulcer of sacral region, stage 2; R00.1 Bradycardia, unspecified; I45.10 Unspecified right bundle-branch block; N18.6 End stage renal disease; D63.1 Anemia in chronic kidney disease; E11.9 Type 2 diabetes mellitus without complications; I10 Essential (primary) hypertension; E78.5 Hyperlipidemia, unspecified; M10.9 Gout, unspecified; Z86.79 Personal history of other diseases of the circulatory system; Z79.02 Long term (current) use of antithrombotics/antiplatelets; Z79.4 Long term (current) use of insulin; Z79.811 Long term (current) use of aromatase inhibitors; Z79.01 Long term (current) use of anticoagulants; Z79.899 Other long term (current) drug therapy

== ENCOUNTER 2025-06-10 13:00 | Inpatient (IN) | payer MEDICARE, MEDICAID ==
[~2025-06-10] VITALS: Ht 154.9 cm; Wt 52.3 kg
[~2025-06-10 13:00] MED LIST changes: +AMLO25TA PO; +LISI40TA10 PO; -LISI40TA4 PO; +LOPE2TAB12 PO; +NOVOINJ3 SC; -SUCR1ORA2 PO; +SUCR1ORA20 PO
[2025-06-10 13:32] LABS: BASO # 0.1 10^3/uL (0.0-0.2); BASO % 1.3 % (0.0-1.0); EOS # 0.3 10^3/uL (0.0-0.5); EOS % 6.2 % (0.0-3.0); LYMPH # 0.6 10^3/uL (1.5-5.0); LYMPH % 11.9 % (24.0-44.0); MONO # 0.9 10^3/uL (0.0-0.8); MONO % 16.4 % (2.0-8.0); NEUTROPHILS # 3.3 10^3/uL (1.5-8.5); NEUTROPHILS % 64.0 % (36.0-66.0); PLATELET COUNT, AUTOMATED 129 10^3/uL (150-450)
[2025-06-10 13:45] LABS: VENOUS BASE EXCESS 1.6 (-2.0-2.0); VENOUS HCO3 28.3 MMOL/L (23.0-27.0); VENOUS O2 SATURATION 61.6 % (60.0-80.0); VENOUS PARTIAL PRESSURE CO2 52.8 mmHg (38.0-50.0); VENOUS PARTIAL PRESSURE O2 33.2 mmHg (30.0-50.0); VENOUS PH 7.347 UNITS (7.330-7.430); VENOUS STANDARD HCO3 24.9 MMOL/L; VENOUS TOTAL CO2 29.9 MMOL/L (24.0-28.0)
[2025-06-10 14:04] LABS: ESTIMATED AVERAGE GLUCOSE 108.0 MG/DL (60-110)
[2025-06-10 14:16] LABS: ALT/SGPT 16.0 U/L (7.0-40); AST/SGOT 44.0 U/L (<34); CALCIUM LEVEL 8.3 MG/DL (8.3-10.6); CARBON DIOXIDE LEVEL 26.0 MMOL/L (20-31); CHLORIDE LEVEL 96.0 MMOL/L (98-107); CREATININE FOR GFR 1.65 MG/DL (0.55-1.30); GLOMERULAR FILTRATION RATE 31.4 (>39); POTASSIUM SERUM 4.9 MMOL/L (3.5-5.1); SODIUM LEVEL 134.0 MMOL/L (136-145)
[2025-06-10] MEDS ORDERED: LANTINJ4 SUBQ (14:56)
[2025-06-10] MEDS ORDERED: HYDR50TA46 PO (14:56)
[2025-06-10] MEDS ORDERED: LISI40TA10 PO (14:56)
[2025-06-10] MEDS ORDERED: HOME MED LIST COMPLETE! XX SCH (15:00)
[2025-06-10 16:20] LABS: FREE T4 1.72 NG/DL (0.89-1.76)
[2025-06-10] MEDS ORDERED: HEPARIN SOD 5000 UNITS/ML 1 ML VIAL/SYRINGE SC SCH (16:20)
[2025-06-10] MEDS: WARFARIN SOD 2.5MG TAB PO SCH (17:00)
[2025-06-10] MEDS ORDERED: WARFARIN SOD 2.5MG TAB PO SCH (17:00)
[2025-06-10] MEDS ORDERED: ONDANSETRON 4MG 2ML VIAL IV PRN (17:10)
[2025-06-10] MEDS ORDERED: GLUCOSE 4 GM CHEW PO PRN (17:25)
[2025-06-10] MEDS ORDERED: DEXTROSE 50% 50 ML SYRINGE IV PRN (17:25)
[2025-06-10] MEDS ORDERED: GLUCAGON INJ 1 MG VIAL SC PRN (17:25)
[2025-06-10] MEDS ORDERED: hydrALAZINE 20 MG/ML 1 ML VIAL IV PRN (17:30)
[2025-06-10] MEDS: D10W 1,000 ML IV SCH (17:50)
[2025-06-10 18:06] LABS: INR 1.32
[2025-06-10 18:17] LABS: CK-MB VALUE MASS 1.6 NG/ML (<3.6)
[2025-06-10 18:31] LABS: KETONE, URINE AUTO RFX NEGATIVE (NEGATIVE); NITRITE, URINE AUTO RFX NEGATIVE (NEGATIVE); RBC, URINE AUTO RFX 1 /HPF (0-3); SQUAM EPITHELIAL CELL UR AURFX 3 /HPF (0-6)
[2025-06-10 18:32] LABS: LEUKOCYTE ESTERASE UR AUTO RFX 2+ (NEGATIVE); WBC, URINE AUTO RFX 84 /HPF (0-3)
[2025-06-10 18:34] LABS: CPK CREATINE PHOSPHOKINASE 50.0 U/L (34-145); MB/CK RELATIVE INDEX 3.2 (< OR =4)
[2025-06-10] MEDS ORDERED: HEPARIN SOD 5000 UNITS/ML 1 ML VIAL/SYRINGE IV PRN (18:45)
[2025-06-10] MEDS ORDERED: ISOVUE-370 76% 100 ML VIAL As Ordered ONE (18:46)
[2025-06-10] MEDS ORDERED: WARFARIN SOD 5MG TAB PO ONE (19:00)
[2025-06-10] MEDS: WARFARIN SOD 2.5MG TAB PO ONE (19:30)
[2025-06-10 20:03] LABS: CHOLESTEROL LEVEL 167.0 MG/DL (<200); CHOLESTEROL RISK RATIO 2.47 (<5); LDL CHOLESTEROL 83.4 MG/DL (<100); NON-HDL-C 99.4 MG/DL; TRIGLYCERIDES LEVEL 80.0 MG/DL (<150)
[2025-06-10] MEDS ORDERED: ATORVASTATIN 10 MG TAB PO SCH (21:00)
[2025-06-10] MEDS: HEPARIN SOD 5000 UNITS/ML 1 ML VIAL/SYRINGE IV ONE (21:31)
[2025-06-10] MEDS: HEPARIN DRIP 25,000 UNITS in IV 1 EA IV SCH (21:33)
[2025-06-10] MEDS: PIPERACILLIN/TAZOBACTAM SOD 3.375 GM in DEXTROSE 5% (D5W) ADV/MINI-BAG 50 ML IV SCH (21:34)
[2025-06-10] MEDS: PANTOPRAZOLE 40MG TAB PO SCH (21:39)
[2025-06-10] MEDS: **hydrALAZINE** 50 MG TAB PO SCH (21:40)
[2025-06-11] VITALS (7 sets, daily range): BP systolic 136–149; BP diastolic 58–68; TEMP 97–98.7; O2SAT 95–98
[2025-06-11] MEDS: VANCOMYCIN HCL 1,000 MG, VIAL MATE ADAPTER 1 EACH in NS 250 ML IV ONE (00:21)
[2025-06-11] MEDS: PIPERACILLIN/TAZOBACTAM SOD 3.375 GM in DEXTROSE 5% (D5W) ADV/MINI-BAG 50 ML IV SCH (04:59)
[2025-06-11 08:12] LABS: PLATELET COUNT, AUTOMATED 145 10^3/uL (150-450)
[2025-06-11 08:54] LABS: ALT/SGPT 9.0 U/L (7.0-40); AST/SGOT 26.0 U/L (<34); CALCIUM LEVEL 8.0 MG/DL (8.3-10.6); CARBON DIOXIDE LEVEL 29.0 MMOL/L (20-31); CHLORIDE LEVEL 96.0 MMOL/L (98-107); CREATININE FOR GFR 2.43 MG/DL (0.55-1.30); GLOMERULAR FILTRATION RATE 19.8 (>39); POTASSIUM SERUM 4.4 MMOL/L (3.5-5.1); SODIUM LEVEL 134.0 MMOL/L (136-145)
[2025-06-11 09:23] LABS: INR 1.53
[2025-06-11] MEDS ORDERED: SODIUM CHLORIDE 0.9% 1000 ML IV PRN (09:40)
[2025-06-11] MEDS: CYANOCOBALAMIN 500 MCG TAB PO SCH (10:03)
[2025-06-11] MEDS: FEBUXOSTAT 40 MG TABLET PO SCH (10:03)
[2025-06-11] MEDS: ATORVASTATIN 20 MG TAB PO SCH (10:04)
[2025-06-11] MEDS: amLODIPine 5 MG TAB PO SCH (10:04)
[2025-06-11] MEDS: LETROZOLE 2.5 MG TAB PO SCH (10:04)
[2025-06-11] MEDS: FOLIC ACID 1 MG TAB PO SCH (10:05)
[2025-06-11 10:10] LABS: VANCOMYCIN RANDOM 12.7 UG/ML
[2025-06-11] MEDS: HEPARIN 1,000 UNITS/ML 10 ML VIAL (FOR RADIOLOGY & DIALYSIS ONLY) IV PRN (14:47)
[2025-06-11] MEDS ORDERED: VANCOMYCIN HCL 1,000 MG, VIAL MATE ADAPTER 1 EACH in NS 250 ML IV SCH (17:00)
[2025-06-11] MEDS: PIPERACILLIN/TAZOBACTAM SOD 4.5 GM in DEXTROSE 5% (D5W) ADV/MINI-BAG 50 ML IV SCH (18:20)
[2025-06-11] MEDS: WARFARIN SOD 5MG TAB PO ONE (18:20)
[2025-06-11] MEDS: VANCOMYCIN HCL 1,000 MG, VIAL MATE ADAPTER 1 EACH in NS 250 ML IV SCH (18:20)
[2025-06-12] MEDS: ACETAMINOPHEN 325 MG TAB PO PRN (00:54)
[2025-06-12] MEDS: CYCLOBENZAPRINE 5 MG TABLET PO ONE (01:23)
[2025-06-12 03:50] VITALS: BP 146/67; TEMP 97.6; O2SAT 96
[2025-06-12] MEDS ORDERED: HEPARIN 1,000 UNITS/ML 10 ML VIAL (FOR RADIOLOGY & DIALYSIS ONLY) XX SCH (06:00)
[2025-06-12] MEDS ORDERED: SODIUM CHLORIDE 0.9% 1000 ML IV PRN (06:00)
[2025-06-12] MEDS ORDERED: HEPARIN 1,000 UNITS/ML 10 ML VIAL (FOR RADIOLOGY & DIALYSIS ONLY) IV PRN (06:00)
[2025-06-12 06:22] LABS: PLATELET COUNT, AUTOMATED 165 10^3/uL (150-450)
[2025-06-12 06:36] LABS: INR 1.48
[2025-06-12 06:46] LABS: VANCOMYCIN RANDOM 21.6 UG/ML
[2025-06-12 06:47] LABS: ALT/SGPT 9.0 U/L (7.0-40); AST/SGOT 27.0 U/L (<34); CALCIUM LEVEL 7.9 MG/DL (8.3-10.6); CALCIUM LEVEL 8.0 MG/DL (8.3-10.6); CARBON DIOXIDE LEVEL 28.0 MMOL/L (20-31); CARBON DIOXIDE LEVEL 29.0 MMOL/L (20-31); CHLORIDE LEVEL 95.0 MMOL/L (98-107); CHLORIDE LEVEL 96.0 MMOL/L (98-107); CREATININE FOR GFR 2.16 MG/DL (0.55-1.30); GLOMERULAR FILTRATION RATE 22.7 (>39); MAGNESIUM LEVEL 1.9 MG/DL (1.8-2.4); PHOSPHORUS LEVEL 2.3 MG/DL (2.4-5.1); POTASSIUM SERUM 3.7 MMOL/L (3.5-5.1); POTASSIUM SERUM 4.1 MMOL/L (3.5-5.1); SODIUM LEVEL 135.0 MMOL/L (136-145); SODIUM LEVEL 136.0 MMOL/L (136-145)
[2025-06-12 08:36] VITALS: BP 147/65; TEMP 97.8; O2SAT 95
[2025-06-12] MEDS: MORPHINE 2 MG/ML 1 ML VIAL IV ONE ×2 (09:11→15:33)
[2025-06-12] MEDS: MAGNESIUM OXIDE 400 MG TAB PO ONE (09:12)
[2025-06-12] MEDS: POTASSIUM PHOSPHATE INJ 18 MMOL in D5W 250 ML IV ONE (11:24)
[2025-06-12 12:00] VITALS: BP 143/65; TEMP 98.3; O2SAT 96
[2025-06-12] MEDS: HEPARIN 1,000 UNITS/ML 10 ML VIAL (FOR RADIOLOGY & DIALYSIS ONLY) XX SCH (15:57)
[2025-06-12] MEDS ORDERED: VANCOMYCIN HCL 750 MG, VIAL MATE ADAPTER 1 EACH in NS 250 ML IV SCH (16:00)
[2025-06-12] MEDS: CEFDINIR 300 MG CAP PO ONE (17:24)
[2025-06-12] MEDS: WARFARIN SOD 7.5MG TAB PO ONE (17:25)
[2025-06-12] MEDS: INSULIN LISPRO (NovoLOG) PER UNIT SC SCH (17:30)
[2025-06-12] MEDS: LIDOCAINE 5% PATCH TD ONE (18:48)
[2025-06-12 20:23] VITALS: BP 155/58; TEMP 97.5; O2SAT 95
[2025-06-12 21:34] LABS: PLATELET COUNT, AUTOMATED 158 10^3/uL (150-450)
[2025-06-12 22:02] LABS: INR 1.88
[2025-06-12 23:12] VITALS: BP 138/65; TEMP 97.1; O2SAT 98
[2025-06-13 03:29] VITALS: BP 158/68; TEMP 97; O2SAT 98
[2025-06-13 03:30] LABS: INR 2.1
[2025-06-13] MEDS ORDERED: SODIUM CHLORIDE 0.9% 1000 ML IV PRN (06:00)
[2025-06-13] MEDS ORDERED: HEPARIN 1,000 UNITS/ML 10 ML VIAL (FOR RADIOLOGY & DIALYSIS ONLY) XX SCH (06:00)
[2025-06-13 06:28] LABS: PLATELET COUNT, AUTOMATED 158 10^3/uL (150-450)
[2025-06-13 06:41] LABS: INR 2.22
[2025-06-13 07:00] LABS: ALT/SGPT 14.0 U/L (7.0-40); AST/SGOT 33.0 U/L (<34); CALCIUM LEVEL 8.2 MG/DL (8.3-10.6); CARBON DIOXIDE LEVEL 27.0 MMOL/L (20-31); CHLORIDE LEVEL 97.0 MMOL/L (98-107); CREATININE FOR GFR 2.07 MG/DL (0.55-1.30); GLOMERULAR FILTRATION RATE 23.9 (>39); POTASSIUM SERUM 3.7 MMOL/L (3.5-5.1); SODIUM LEVEL 136.0 MMOL/L (136-145)
[2025-06-13 07:38] VITALS: BP 152/64; TEMP 98; O2SAT 98
[2025-06-13] MEDS: LIDOCAINE 5% PATCH TD SCH (08:36)
[2025-06-13 12:40] VITALS: BP 166/69; TEMP 98; O2SAT 98
[2025-06-13] MEDS: HEPARIN 1,000 UNITS/ML 10 ML VIAL (FOR RADIOLOGY & DIALYSIS ONLY) IV PRN (14:39)
[2025-06-13 16:45] VITALS: BP 156/58; TEMP 97.8; O2SAT 96
[2025-06-13] MEDS: CEFDINIR 300 MG CAP PO SCH (17:41)
[2025-06-13] MEDS: LIDOCAINE 5% PATCH TD ONE (17:41)
[2025-06-13 19:52] VITALS: BP 154/65; TEMP 98.2; O2SAT 98
[2025-06-13 23:03] VITALS: BP 158/84; TEMP 98.5; O2SAT 98
[2025-06-14 03:28] VITALS: BP 164/74; TEMP 98.3; O2SAT 97
[2025-06-14 05:47] LABS: PLATELET COUNT, AUTOMATED 165 10^3/uL (150-450)
[2025-06-14 06:06] LABS: INR 3.31
[2025-06-14 06:10] LABS: ALT/SGPT 12.0 U/L (7.0-40); AST/SGOT 34.0 U/L (<34); CALCIUM LEVEL 8.3 MG/DL (8.3-10.6); CARBON DIOXIDE LEVEL 26.0 MMOL/L (20-31); CHLORIDE LEVEL 102.0 MMOL/L (98-107); CREATININE FOR GFR 2.27 MG/DL (0.55-1.30); GLOMERULAR FILTRATION RATE 21.4 (>39); POTASSIUM SERUM 3.8 MMOL/L (3.5-5.1); SODIUM LEVEL 138.0 MMOL/L (136-145)
[2025-06-14 07:37] VITALS: BP 160/70; TEMP 98.5; O2SAT 97
[2025-06-14] MEDS: LIDOCAINE 5% PATCH TD SCH ×2 (08:50→20:33)
[2025-06-14 12:05] VITALS: BP 158/72; TEMP 98.3; O2SAT 96
[2025-06-14 15:58] VITALS: BP 150/62; TEMP 97.9; O2SAT 97
[2025-06-14 17:15] VITALS: BP 140/56
[2025-06-14 19:58] VITALS: BP 156/54; TEMP 97.6; O2SAT 97
[2025-06-14] MEDS ORDERED: LIDOCAINE 5% PATCH TD SCH (21:00)
[2025-06-15] VITALS (7 sets, daily range): BP systolic 100–168; BP diastolic 52–64; TEMP 96.9–100.7; O2SAT 97–99
[2025-06-15] MEDS ORDERED: SODIUM CHLORIDE 0.9% 1000 ML IV PRN (06:00)
[2025-06-15] MEDS ORDERED: HEPARIN 1,000 UNITS/ML 10 ML VIAL (FOR RADIOLOGY & DIALYSIS ONLY) IV PRN (06:00)
[2025-06-15 06:05] LABS: PLATELET COUNT, AUTOMATED 160 10^3/uL (150-450)
[2025-06-15 06:24] LABS: INR 2.63
[2025-06-15 06:28] LABS: ALT/SGPT 12.0 U/L (7.0-40); AST/SGOT 30.0 U/L (<34); CALCIUM LEVEL 8.2 MG/DL (8.3-10.6); CARBON DIOXIDE LEVEL 25.0 MMOL/L (20-31); CHLORIDE LEVEL 103.0 MMOL/L (98-107); CREATININE FOR GFR 3.47 MG/DL (0.55-1.30); GLOMERULAR FILTRATION RATE 12.9 (>39); POTASSIUM SERUM 4.3 MMOL/L (3.5-5.1); SODIUM LEVEL 139.0 MMOL/L (136-145)
[2025-06-15] MEDS ORDERED: LIDOCAINE 5% PATCH TD SCH (09:00)
[2025-06-15] MEDS: HEPARIN 1,000 UNITS/ML 10 ML VIAL (FOR RADIOLOGY & DIALYSIS ONLY) XX SCH (10:10)
[2025-06-15] MEDS: LOPERAMIDE 2 MG CAPLET PO PRN (16:20)
[2025-06-15] MEDS: WARFARIN SOD 2.5MG TAB PO SCH (16:42)
[2025-06-15] MEDS: MORPHINE 2 MG/ML 1 ML VIAL IV ONE (16:50)
[2025-06-15 22:51] LABS: KETONE, URINE AUTO RFX NEGATIVE (NEGATIVE); LEUKOCYTE ESTERASE UR AUTO RFX 3+ (NEGATIVE); MUCUS, URINE RFX SMALL (NEGATIVE); NITRITE, URINE AUTO RFX NEGATIVE (NEGATIVE); RBC, URINE AUTO RFX 8 /HPF (0-3); SQUAM EPITHELIAL CELL UR AURFX 3 /HPF (0-6); TRANSITIONAL EPITHELIAL AU RFX 2 /HPF; WBC, URINE AUTO RFX 170 /HPF (0-3)
[2025-06-15 23:24] LABS: PLATELET COUNT, AUTOMATED 176 10^3/uL (150-450)
[2025-06-16] VITALS (9 sets, daily range): BP systolic 120–140; BP diastolic 46–64; TEMP 97.6–99.4; O2SAT 96–100
[2025-06-16 05:38] LABS: PLATELET COUNT, AUTOMATED 167 10^3/uL (150-450)
[2025-06-16 05:50] LABS: INR 1.76
[2025-06-16 06:03] LABS: ALT/SGPT 12.0 U/L (7.0-40); AST/SGOT 29.0 U/L (<34); CALCIUM LEVEL 8.3 MG/DL (8.3-10.6); CARBON DIOXIDE LEVEL 27.0 MMOL/L (20-31); CHLORIDE LEVEL 106.0 MMOL/L (98-107); CREATININE FOR GFR 2.56 MG/DL (0.55-1.30); GLOMERULAR FILTRATION RATE 18.6 (>39); POTASSIUM SERUM 4.3 MMOL/L (3.5-5.1); SODIUM LEVEL 141.0 MMOL/L (136-145)
[2025-06-16] MEDS: cefTRIAXone SOD 1 GM in DEXTROSE 5% (D5W) ADV/MINI-BAG 50 ML IV SCH (11:24)
[2025-06-16] MEDS: WARFARIN SOD 2.5MG TAB PO SCH (17:04)
[2025-06-17 04:03] VITALS: BP 132/50; TEMP 97.8; O2SAT 99
[2025-06-17] MEDS ORDERED: HEPARIN 1,000 UNITS/ML 10 ML VIAL (FOR RADIOLOGY & DIALYSIS ONLY) IV PRN (06:00)
[2025-06-17] MEDS ORDERED: SODIUM CHLORIDE 0.9% 1000 ML IV PRN (06:00)
[2025-06-17 07:56] VITALS: TEMP 97.8; O2SAT 98
[2025-06-17 09:23] LABS: INR 1.74
[2025-06-17 09:30] LABS: CALCIUM LEVEL 8.3 MG/DL (8.3-10.6); CARBON DIOXIDE LEVEL 23.0 MMOL/L (20-31); CHLORIDE LEVEL 103.0 MMOL/L (98-107); CREATININE FOR GFR 3.73 MG/DL (0.55-1.30); GLOMERULAR FILTRATION RATE 11.8 (>39); MAGNESIUM LEVEL 1.5 MG/DL (1.8-2.4); POTASSIUM SERUM 4.4 MMOL/L (3.5-5.1); SODIUM LEVEL 137.0 MMOL/L (136-145)
[2025-06-17] MEDS: HEPARIN 1,000 UNITS/ML 10 ML VIAL (FOR RADIOLOGY & DIALYSIS ONLY) XX SCH (09:40)
[2025-06-17] MEDS: DARBEPOETIN 100 MCG/0.5 ML *DIALYSIS* SYRINGE IV SCH (09:40)
[2025-06-17 12:09] VITALS: BP 138/68; TEMP 98.6; O2SAT 100
[2025-06-17] MEDS: PERCOCET 5MG/325MG TAB PO PRN ×2 (13:13→18:38)
[2025-06-17 16:18] VITALS: BP 130/64; TEMP 98; O2SAT 98
[2025-06-17] MEDS: WARFARIN SOD 4MG TAB PO ONE (17:11)
[2025-06-17 19:48] VITALS: BP 110/50; TEMP 98.2; O2SAT 100
[2025-06-18 00:19] VITALS: BP 114/52; TEMP 98.2; O2SAT 100
[2025-06-18 03:37] VITALS: BP 138/58; TEMP 98.7; O2SAT 100
[2025-06-18 05:14] LABS: INR 1.49
[2025-06-18 05:23] LABS: CALCIUM LEVEL 8.6 MG/DL (8.3-10.6); CARBON DIOXIDE LEVEL 24.0 MMOL/L (20-31); CHLORIDE LEVEL 101.0 MMOL/L (98-107); CREATININE FOR GFR 2.81 MG/DL (0.55-1.30); GLOMERULAR FILTRATION RATE 16.6 (>39); MAGNESIUM LEVEL 1.5 MG/DL (1.8-2.4); POTASSIUM SERUM 4.5 MMOL/L (3.5-5.1); SODIUM LEVEL 135.0 MMOL/L (136-145)
[2025-06-18 07:46] VITALS: BP 168/50; TEMP 98.1; O2SAT 99
[2025-06-18 12:29] VITALS: BP 158/60; TEMP 98.2; O2SAT 98
[2025-06-18 16:09] VITALS: BP 150/58; TEMP 98.4; O2SAT 99
[2025-06-18] MEDS ORDERED: PILL CUTTER 1 EACH XX ONE (17:21)
[2025-06-18 19:59] VITALS: BP 130/58; TEMP 98.2; O2SAT 98
[2025-06-19 00:14] VITALS: BP 130/50; TEMP 96.9; O2SAT 100
[2025-06-19 04:24] VITALS: BP 132/48; TEMP 97.7; O2SAT 98
[2025-06-19 05:29] LABS: INR 1.76
[2025-06-19 05:39] LABS: CALCIUM LEVEL 8.2 MG/DL (8.3-10.6); CARBON DIOXIDE LEVEL 22.0 MMOL/L (20-31); CHLORIDE LEVEL 103.0 MMOL/L (98-107); CREATININE FOR GFR 3.77 MG/DL (0.55-1.30); GLOMERULAR FILTRATION RATE 11.7 (>39); MAGNESIUM LEVEL 1.3 MG/DL (1.8-2.4); POTASSIUM SERUM 4.6 MMOL/L (3.5-5.1); SODIUM LEVEL 136.0 MMOL/L (136-145)
[2025-06-19] MEDS ORDERED: SODIUM CHLORIDE 0.9% 1000 ML IV PRN (06:00)
[2025-06-19] MEDS ORDERED: HEPARIN 1,000 UNITS/ML 10 ML VIAL (FOR RADIOLOGY & DIALYSIS ONLY) IV PRN (06:00)
[2025-06-19 07:10] VITALS: BP 140/50; TEMP 98; O2SAT 98
[2025-06-19] MEDS: HEPARIN 1,000 UNITS/ML 10 ML VIAL (FOR RADIOLOGY & DIALYSIS ONLY) XX SCH (09:46)
[2025-06-19 12:06] VITALS: BP 170/60; TEMP 97.6; O2SAT 100
[2025-06-19] MEDS: MAG SULF 1GM/100ML (MAG RUN) 1 GM in IV 1 EA IV SCH (14:21)
[2025-06-19 16:00] VITALS: BP 140/70; TEMP 98.6; O2SAT 99
[2025-06-19] MEDS: WARFARIN SOD 1MG TAB PO ONE (16:57)
[2025-06-19 20:18] VITALS: BP 126/60; TEMP 97.2; O2SAT 100
[2025-06-19] MEDS: INSULIN LISPRO (NovoLOG) PER UNIT SC SCH (21:00)
[2025-06-20 00:13] VITALS: BP 146/52; TEMP 97.1; TEMP 97.2; O2SAT 100; O2SAT 95
[2025-06-20 04:09] VITALS: BP 126/58; TEMP 97.7; O2SAT 99
[2025-06-20 05:46] LABS: INR 1.68
[2025-06-20 06:03] LABS: CALCIUM LEVEL 8.2 MG/DL (8.3-10.6); CARBON DIOXIDE LEVEL 24.0 MMOL/L (20-31); CHLORIDE LEVEL 99.0 MMOL/L (98-107); CREATININE FOR GFR 2.65 MG/DL (0.55-1.30); GLOMERULAR FILTRATION RATE 17.8 (>39); MAGNESIUM LEVEL 2.8 MG/DL (1.8-2.4); POTASSIUM SERUM 4.0 MMOL/L (3.5-5.1); SODIUM LEVEL 134.0 MMOL/L (136-145)
[2025-06-20 07:43] VITALS: BP 126/64; TEMP 97.6; O2SAT 100
[2025-06-20] MEDS: INSULIN LISPRO (NovoLOG) PER UNIT SC SCH (08:27)
[2025-06-20 12:00] VITALS: BP 110/64; TEMP 97.6; O2SAT 98
[2025-06-20 15:45] VITALS: BP 122/54; TEMP 97.8; O2SAT 100
[2025-06-20 19:58] VITALS: BP 118/54; TEMP 97.3; O2SAT 100
[2025-06-21] VITALS (9 sets, daily range): BP systolic 116–158; BP diastolic 44–71; TEMP 97.2–98.1; O2SAT 98–100
[2025-06-21 05:46] LABS: INR 1.43
[2025-06-21 06:04] LABS: CALCIUM LEVEL 8.2 MG/DL (8.3-10.6); CARBON DIOXIDE LEVEL 21.0 MMOL/L (20-31); CHLORIDE LEVEL 97.0 MMOL/L (98-107); CREATININE FOR GFR 3.49 MG/DL (0.55-1.30); GLOMERULAR FILTRATION RATE 12.8 (>39); MAGNESIUM LEVEL 2.4 MG/DL (1.8-2.4); POTASSIUM SERUM 4.4 MMOL/L (3.5-5.1); SODIUM LEVEL 130.0 MMOL/L (136-145)
[2025-06-22 03:32] VITALS: BP 121/58; TEMP 97.9; O2SAT 99
[2025-06-22 05:59] LABS: INR 1.54
[2025-06-22] MEDS ORDERED: SODIUM CHLORIDE 0.9% 1000 ML IV PRN (06:00)
[2025-06-22] MEDS ORDERED: HEPARIN 1,000 UNITS/ML 10 ML VIAL (FOR RADIOLOGY & DIALYSIS ONLY) IV PRN (06:00)
[2025-06-22 06:10] LABS: CALCIUM LEVEL 8.5 MG/DL (8.3-10.6); CARBON DIOXIDE LEVEL 22.0 MMOL/L (20-31); CHLORIDE LEVEL 97.0 MMOL/L (98-107); CREATININE FOR GFR 4.35 MG/DL (0.55-1.30); GLOMERULAR FILTRATION RATE 9.8 (>39); MAGNESIUM LEVEL 2.2 MG/DL (1.8-2.4); POTASSIUM SERUM 4.8 MMOL/L (3.5-5.1); SODIUM LEVEL 129.0 MMOL/L (136-145)
[2025-06-22 08:00] VITALS: BP 142/90; TEMP 97
[2025-06-22] MEDS: HEPARIN 1,000 UNITS/ML 10 ML VIAL (FOR RADIOLOGY & DIALYSIS ONLY) XX SCH (10:13)
[2025-06-22 12:03] VITALS: BP 160/88; TEMP 96.8; O2SAT 99
[2025-06-22] MEDS ORDERED: ATROPINE SULFATE 1% OPHTH SOLN 2 ML BTL SL PRN (15:35)
[2025-06-22] MEDS ORDERED: MIRALAX *UNIT DOSE* 17 GM PACKET PO PRN (15:35)
[2025-06-22] MEDS ORDERED: POLYVINYL ALCOHOL OPHTH SOLN 15ML (LIQUITEARS) OU PRN (15:35)
[2025-06-22] MEDS ORDERED: SENNA 8.6 MG TAB PO PRN (15:35)
[2025-06-22] MEDS ORDERED: ONDANSETRON 4MG ORAL DISINTEGRATING TAB PO PRN (15:35)
[2025-06-22] MEDS ORDERED: HALOPERIDOL 1 MG TAB PO PRN (15:35)
[2025-06-22] MEDS ORDERED: SALIVA SUBSTITUTE BTL MT PRN (15:35)
[2025-06-22] MEDS: MORPHINE 10 MG/0.5 ML ORAL CONCENTRATE SOLUTION U/D SL SCH (16:03)
[2025-06-22] MEDS: WARFARIN SOD 4MG TAB PO ONE (16:03)
[2025-06-22] MEDS: MORPHINE 10 MG/0.5 ML ORAL CONCENTRATE SOLUTION U/D SL PRN (20:38)
[2025-06-23 09:28] VITALS: BP 160/88
[2025-06-23] MEDS: LORazepam 0.5 MG TAB PO PRN (18:11)
[2025-06-23 18:50] VITALS: O2SAT 96
[2025-06-24] MEDS: MORPHINE 10 MG/0.5 ML ORAL CONCENTRATE SOLUTION U/D SL SCH (12:19)
[2025-06-24] MEDS: MORPHINE 10 MG/0.5 ML ORAL CONCENTRATE SOLUTION U/D SL PRN (18:32)
[2025-06-24] MEDS: LORazepam 1 MG TAB PO SCH (19:49)
[2025-06-25] MEDS: HYOSCYAMINE SULFATE 0.125 MG SUBL TABLET SL PRN (05:34)
[2025-06-25] MEDS: MORPHINE 10 MG/0.5 ML ORAL CONCENTRATE SOLUTION U/D SL PRN (10:57)
[2025-06-25] MEDS: MORPHINE 10 MG/0.5 ML ORAL CONCENTRATE SOLUTION U/D SL SCH (13:00)
[2025-06-25] MEDS: LORazepam 1 MG TAB PO SCH (16:00)
[2025-06-26] MEDS: SCOPOLAMINE 1MG TRANSDERMAL PATCH TOP SCH (13:26)
== END 2025-06-27 04:30 | disposition expired | DRG 871 ==
LOC: M ED 13:00 → EDBD 13:00 → M ED INP 18:56 → M PCU 06-11 04:18 → M MS5PR 06-23 09:41
PROVIDERS: ADMIT Internal Medicine; ATTEND Student in an Organized Health Care Education/Training Program
PROC: 5A1D70Z Performance of Urinary Filtration, Intermittent, Less than 6 Hours Per Day (ICD-10-PCS; principal; 2025-06-11)
DX: A41.9 Sepsis, unspecified organism (principal); G93.41 Metabolic encephalopathy; N18.6 End stage renal disease; I12.0 Hypertensive chronic kidney disease with stage 5 chronic kidney disease or end stage renal disease; N39.0 Urinary tract infection, site not specified; D62 Acute posthemorrhagic anemia; Z66 Do not resuscitate; B96.20 Unspecified Escherichia coli [E. coli] as the cause of diseases classified elsewhere; E11.22 Type 2 diabetes mellitus with diabetic chronic kidney disease; E78.5 Hyperlipidemia, unspecified; M10.9 Gout, unspecified; I25.10 Atherosclerotic heart disease of native coronary artery without angina pectoris; E11.649 Type 2 diabetes mellitus with hypoglycemia without coma; R68.0 Hypothermia, not associated with low environmental temperature; D63.1 Anemia in chronic kidney disease; L89.159 Pressure ulcer of sacral region, unspecified stage; K21.9 Gastro-esophageal reflux disease without esophagitis; Z99.2 Dependence on renal dialysis; Z95.2 Presence of prosthetic heart valve; Z86.73 Personal history of transient ischemic attack (TIA), and cerebral infarction without residual deficits; Z90.11 Acquired absence of right breast and nipple; Z79.4 Long term (current) use of insulin; Z79.01 Long term (current) use of anticoagulants; Z79.899 Other long term (current) drug therapy; Z88.8 Allergy status to other drugs, medicaments and biological substances; E87.70 Fluid overload, unspecified; K52.9 Noninfective gastroenteritis and colitis, unspecified; M79.81 Nontraumatic hematoma of soft tissue; E87.6 Hypokalemia; I46.9 Cardiac arrest, cause unspecified; R57.1 Hypovolemic shock; R62.7 Adult failure to thrive; C50.911 Malignant neoplasm of unspecified site of right female breast; C50.912 Malignant neoplasm of unspecified site of left female breast; L89.322 Pressure ulcer of left buttock, stage 2; E87.5 Hyperkalemia